=== PATIENT | female | born 1960 | race Caucasian/White ===

== ENCOUNTER → 2020-08-20 07:56 | Outpatient (BNVA) | payer BC, SELFPAY | PROVIDERS: PCP Nurse Practitioner Family; Referring Provider Nurse Practitioner Family; Visit Provider Student in an Organized Health Care Education/Training Program | DX: Z76.89 Persons encountering health services in other specified circumstances (principal) ==

== ENCOUNTER 2020-09-16 08:14 | Outpatient (REF) | payer BC, SELFPAY ==
[2020-09-16 11:37] LABS: Alanine Aminotransferase 35 U/L (0-31); Albumin Level 4.5 g/dL (3.5-5.0); Alkaline Phosphatase 78 U/L (39-117); Anion Gap 12 (12-20); Aspartate Amino Transferase 27 U/L (5-31); Bilirubin Total 0.5 mg/dL (0.0-1.0); Blood Urea Nitrogen 18 mg/dL (9-16); Calcium 9.2 mg/dL (8.4-10.2); Carbon Dioxide 30 mmol/L (22-29); Chloride 106 mmol/L (96-108); Cholesterol 163 mg/dL; Estimated Glomerular Filt Rate 49; Glucose Fasting 76 mg/dL (60-99); HDL Cholesterol 54 mg/dL; LDL Cholesterol Calculated 87 mg/dl; Potassium 4.2 mmol/l (3.3-5.1); Sodium 144 mmol/L (135-145); Total Protein 6.9 g/dL (6.5-8.0); Triglycerides 113 mg/dL
[2020-09-16 11:57] LABS: TSH reflex Free T4 1.38 mIU/mL (0.32-4.0)
== END 2020-09-16 08:15 | disposition home or self-care (01) ==
LOC: HO.HMGCLDS 08:14
PROVIDERS: PCP Nurse Practitioner Family; Visit Provider Nurse Practitioner Family
DX: E03.9 Hypothyroidism, unspecified (principal); E78.5 Hyperlipidemia, unspecified
CPT/HCPCS: 80053; 80061; 84443

== ENCOUNTER 2021-02-02 06:46 | Outpatient (REF) | payer BC, SELFPAY ==
[2021-02-02 12:09] LABS: Alanine Aminotransferase 28 U/L (0-31); Albumin Level 4.1 g/dL (3.5-5.0); Alkaline Phosphatase 54 U/L (39-117); Anion Gap 11 (12-20); Aspartate Amino Transferase 21 U/L (5-31); Bilirubin Direct 0.2 mg/dL (0.0-0.5); Bilirubin Total 0.5 mg/dL (0.0-1.0); Blood Urea Nitrogen 24 mg/dL (9-16); Calcium 9.3 mg/dL (8.4-10.2); Carbon Dioxide 29 mmol/L (22-29); Chloride 109 mmol/L (96-108); Cholesterol 159 mg/dL; Estimated Glomerular Filt Rate 48; Glucose Fasting 70 mg/dL (60-99); HDL Cholesterol 54 mg/dL; LDL Cholesterol Calculated 94 mg/dl; Potassium 4.2 mmol/L (3.3-5.1); Sodium 145 mmol/L (135-145); Total Protein 6.2 g/dL (6.5-8.0); Triglycerides 57 mg/dL; Vitamin D 25-OH Total 63.2 ng/mL (>30)
== END 2021-02-02 06:47 | disposition home or self-care (01) ==
LOC: HO.HMGCLDS 06:46
PROVIDERS: PCP Nurse Practitioner Family; Visit Provider Nurse Practitioner Family
DX: Z00.00 Encounter for general adult medical examination without abnormal findings (principal); R74.8 Abnormal levels of other serum enzymes; Z78.0 Asymptomatic menopausal state
CPT/HCPCS: 36415; 80053; 80061; 80076; 82248; 82306; 84443

== ENCOUNTER 2021-04-10 08:29 | Outpatient (REF) | payer BC, SELFPAY ==
--- NOTE | ~2021-04-10 | US_ITS ---
EXAMINATION: US SOFT TISSUE OF THE NECK CLINICAL INFORMATION: Localized swelling, mass and lump, neck. COMPARISON: None TECHNIQUE: Linear transducer grayscale and color Doppler examination of the soft tissues of the neck midline superior to the thyroid. FINDINGS: No solid or cystic soft tissue mass or lymphadenopathy is seen. US/US soft tiss head and/or neck IMPRESSION: No abnormality seen by ultrasound in the soft tissues in the neck, midline superior to the thyroid gland.
== END 2021-04-10 08:30 | disposition home or self-care (01) ==
LOC: HO.HMGCX 08:29
PROVIDERS: PCP Nurse Practitioner Family; Visit Provider Hospitalist
DX: R22.1 Localized swelling, mass and lump, neck (principal)
CPT/HCPCS: 76536

== ENCOUNTER → 2021-09-09 11:16 | Outpatient (BNVA) | payer BC, SELFPAY | PROVIDERS: PCP Nurse Practitioner Family; Visit Provider Nurse Practitioner Family ==

== ENCOUNTER 2021-09-18 07:00 | Outpatient (RCR) | payer BC, SELFPAY ==
--- NOTE | 2021-02-02 08:05 | MHC.PT.EP ---
[facility] [place] Office [place] Office [place] Office [address] Williams Scott [address] [phone] F: [phone] F: [phone] F: [phone] F: [phone] Physical Therapy Plan of Care Date of Evaluation: Date of Surgery: Diagnosis: lumbar radiculopathy Assessment: 61 y/o F referred to PT with lumbar radiculopathy. 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 Of note, PMH significant for B TKA, L ITB/glut med pinning and resection?, HTN, fibromyalgia, and RA. Examination shows decreased lumbar AROM, significantly decreased hip strength, SI dysfunction, and impaired gait pattern with noted frontal plane deviations. Recommend PT 2x/week for 5 weeks to address impairments, implement HEP, and optimize functional mobility. Frequency and Duration: The patient will be seen 2x/week for 5 weeks Short Term Goals: 3 weeks 1. I with HEP 2. Improve lumbar flexion to 75% 3. 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 I with HEP and self management of sx 2. Pt will improve hip strength by 1 MMT grade to faciliate walking > 25 min 3. Pt will be able to sit > 45 min Treatment Plan: Modalities to reduce pain, spasms and effusion. Manual therapy to restore motion and function. Therapeutic exercise to improve strength and flexibility. Neuromuscular re-education for posture and balance. Therapeutic activities to return to functional activities of daily living. Electronically signed by: Teena Garcia PT Please sign and return to therapist. Thank you for your referral.
--- NOTE | 2021-09-18 10:17 | MHC.PT.DC ---
[facility] [place] Office [place] Office [place] Office [address] Williams Scott [address] [phone] F: [phone] F: [phone] F: [phone] F: [phone] Physical Therapy Discharge Report Diagnosis: lumbar radiculopathy Date of Surgery: Date of Evaluation: 02/02/21 Date of Discharge: 09/18/21 Treatments to Date: Cancellations to Date: 2 No Shows to Date: 1 Discharge Status: Achieved Goals Improved Function Independent with HEP Recommend MD Follow-up Discharge Summary: Pt HAS PROGRESSED VERY WELL THROUGH PT- SHE IS COMPLIANT AND INDEP W HEP- HER OVERALL FUNCTIONAL MOBILITY HAS IMPROVED- HER PAIN LEVEL IS SIGNIF DECREASED- FUNCTIONALLY, SIGNI PROGRESS EVIDENT W IMPROVED OSWESTRY SCORE OF 15/50 (AT EVAL 32/50 ) Pt MET HER PT GOALS AT THIS TIME AND IS D/C'D W HEP Electronically signed by: Janay Ramirez,PT Please sign and return to therapist. Thank you for your referral.
== END 2021-09-18 10:18 | disposition home or self-care (01) ==
LOC: HO.PT 07:00
PROVIDERS: PCP Nurse Practitioner Family; Visit Provider Nurse Practitioner Family
DX: M47.816 Spondylosis without myelopathy or radiculopathy, lumbar region (principal)
CPT/HCPCS: 97110; 97112; 97116; 97161

== ENCOUNTER 2021-09-30 09:24 | Emergency (ER) | payer BC, SELFPAY ==
--- NOTE | 2021-09-30 | ECG_ITS ---
Test Reason : abdominal pain Blood Pressure : / mmHG Vent. Rate : 086 BPM Atrial Rate : 086 BPM P-R Int : 158 ms QRS Dur : 078 ms QT Int : 368 ms P-R-T Axes : 059 -02 044 degrees QTc Int : 440 ms Normal sinus rhythm Normal ECG When compared with ECG of 05-MAY-2006 07:49, No significant changes seen Referred By: Serge Steve Electronically Signed By:Behzad Olguin
--- NOTE | ~2021-09-30 | CT_ITS ---
EXAMINATION: CT ABDOMEN AND PELVIS WITH CONTRAST CLINICAL INFORMATION: Abdominal pain. Tenderness to palpation COMPARISON: 04/27/2011 TECHNIQUE: Multidetector volumetric images were obtained from the superior aspect of the liver through the pubic symphysis following administration 85 mL of Omnipaque 350 intravenous contrast. Sagittal and coronal reformatted images were obtained on the technologist's workstation. Oral contrast: No This CT examination was performed using dose optimization techniques as appropriate, variously including the following: *Automated exposure control *Adjustment of mA and/or kV according to patient size (this includes techniques or standardized protocols for targeted exams where dose is matched to indication/reason for exam; i.e. extremities or head) *Use of iterative reconstruction technique DLP: 983 mGy-cm FINDINGS: LUNG BASES: The visualized lung bases are unremarkable. LIVER, GALLBLADDER, AND BILIARY TREE: The liver is normal in size, shape, and attenuation. No focal hepatic lesion or biliary ductal dilatation is present. Gallbladder not seen, either collapsed or surgically absent. PANCREAS: Unremarkable. SPLEEN: Unremarkable. ADRENAL GLANDS: Unremarkable. KIDNEYS AND URETERS: The kidneys are normal in size, shape, and attenuation. No hydronephrosis, hydroureter, or calculi seen. No perinephric stranding. BLADDER: Unremarkable. GASTROINTESTINAL TRACT: Small hiatal hernia is present. There is a duodenal diverticulum adjacent the pancreatic head. Small bowel nondilated. Normal appendix. There is abnormal wall thickening with pericolonic fluid and fat stranding centered about a diverticulum of the proximal sigmoid colon in the central anterior pelvis. No evidence of abscess or perforation. ABDOMINAL WALL: There is asymmetric atrophy of the right rectus abdominis. LYMPH NODES: No lymphadenopathy. VASCULAR: Normal caliber aorta with mild calcified atherosclerotic changes. PELVIC VISCERA: No adnexal mass. OSSEOUS STRUCTURES: Multilevel degenerative changes of the thoracolumbar spine are present. Fixation screws in the right greater trochanter. Convex right lumbar rotoscoliosis. CT/CT abdomen pelvis w con IMPRESSION: Acute diverticulitis of the proximal sigmoid colon without evidence of abscess or perforation. Fleischner guidelines were followed.
[2021-09-30 10:44] VITALS: BP 132/78; PULSE 91; RESP 18; TEMP 37.3; O2SAT 97; BMI 34.9
[2021-09-30 11:32] LABS: MANUAL DIFF FLAG NO
[2021-09-30 11:35] LABS: Basophils Percent Auto 0.3 % (0-2); Eosinophils Absolute Auto 0.2 X10*3/uL (0.0-0.4); Hematocrit 43.3 % (37.0-47.0); Hemoglobin 13.9 g/dl (12.0-16.0); Imm Gran Abs Auto 0.04 X10*3/uL (0.00-0.03); Imm Gran Pct Auto 0.3 % (0.0-0.4); Lymphocytes Absolute Auto 2.8 X10*3/uL (1.2-4.9); Lymphocytes Percent Auto 22.9 % (20-40); Mean Corpuscular HGB Conc 32.1 g/dl (31.0-35.0); Mean Corpuscular Hemoglobin 28.7 pg (27.0-33.0); Mean Corpuscular Volume 89.5 fL (80.0-98.0); Mean Platelet Volume 8.1 fL (9.4-12.3); Monocytes Percent Auto 8.2 % (2-11); Neutrophils Absolute Auto 8.1 x10*3/uL (2.0-8.3); Neutrophils Percent Auto 66.3 % (45-73); Platelet Count 313 X10*3/uL (160-400); Red Blood Count 4.84 X10*6/uL (4.20-5.50); Red Cell Distribution Width 13.2 % (11.0-16.0); White Blood Count 12.2 X10*3/uL (4.8-10.8)
[2021-09-30 12:00] LABS: Alanine Aminotransferase 38 U/L (0-31); Alkaline Phosphatase 83 U/L (39-117); Anion Gap 8 (12-20); Aspartate Amino Transferase 25 U/L (5-31); Blood Urea Nitrogen 14 mg/dL (9-16); Calcium 9.3 mg/dL (8.4-10.2); Carbon Dioxide 30 mmol/L (22-29); Chloride 104 mmol/L (96-108); Creatinine Clr Calc Pharmacy 52.8; Estimated Glomerular Filt Rate 43; Glucose Random 84 mg/dL (60-115); Potassium 3.9 mmol/L (3.3-5.1); Sodium 138 mmol/L (135-145); Total Protein 6.5 g/dL (6.5-8.0)
[2021-09-30 20:16] VITALS: BP 154/75; PULSE 92; RESP 18; TEMP 37; O2SAT 98
--- NOTE | 2021-09-30 20:24 | ED_ITS ---
HPI - Abdominal Pain General Chief Complaint: Abdominal Pain Stated Complaint: abdominal pain fever Source: patient Mode of arrival: ambulatory Limitations: no limitations History of Present Illness HPI narrative: 61-year-old female presents with 3 days of lower abdominal pain associated with fevers, abdominal cramping, and 1 day of constipation. MD elicited complaint: abdominal pain Pertinent past history: diverticulitis Onset (ago): day(s) (3) Pain Consistency: constant Location: RLQ, LLQ and suprapubic Severity: moderate Pain scale (0-10): 8 Quality: cramping and aching Radiation: none Migration to: no migration Exacerbating factors: eating, bowel movement and movement Relieving factors: nothing Associated symptoms: nausea, fever, chills and constipation Related Data Home Medications Medication Instructions Recorded Confirmed acetaminophen 500 mg tablet 1,000 mg PO Q6H PRN 08/20/20 09/09/21 (Tylenol Extra Strength) albuterol sulfate 90 mcg/actuation 2 puff INHALATION Q4-6H PRN 08/20/20 09/09/21 aerosol inhaler bupropion HCl 300 mg 24 hr tablet, 300 mg PO QAM 08/20/20 09/09/21 extended release calcium carbonate 600 mg calcium 600 mg PO BID 08/20/20 09/09/21 (1,500 mg) tablet (Calcium) cholecalciferol (vitamin D3) 25 25 mcg PO DAILY 08/20/20 09/09/21 mcg (1,000 unit) capsule cranberry extract 425 mg capsule 425 mg PO DAILY 08/20/20 09/09/21 loratadine 10 mg tablet 10 mg PO DAILY 08/20/20 09/09/21 multivitamin 1 tab PO DAILY 08/20/20 09/09/21 cyclosporine 0.05 % eye drops in a 1 drp OPHTHALMIC (EYE) BID 09/16/20 09/09/21 dropperette magnesium 250 mg tablet 250 mg PO DAILY 04/23/21 09/09/21 lutein 40 mg capsule 40 mg PO DAILY 09/09/21 09/09/21 vit C 250 mg-vit E 90 mg-zinc 40 1 tab PO DAILY cap 09/09/21 09/09/21 mg-copper 1 [id number] capsule (PreserVision AREDS-2) Previous Rx's Medication Instructions Recorded rosuvastatin 10 mg tablet 10 mg PO DAILY #90 cap 10/14/20 sumatriptan succinate 50 mg tablet See Rx Instructions PO .COMPLEX 30 12/30/20 (Imitrex) Days #10 tab gabapentin 600 mg tablet 600 mg PO BID #120 cap 01/14/21 levothyroxine 125 mcg tablet 125 mcg PO QAM #90 cap 02/12/21 fluticasone 500 mcg-salmeterol 50 1 ea PO BID #60 ea 03/28/21 mcg/dose blistr powdr for inhalation (Wixela Inhub) diclofenac potassium 50 mg tablet 50 mg PO BID PRN 30 Days #60 tab 04/23/21 losartan 100 mg tablet 100 mg PO DAILY 90 Days #90 tab 04/23/21 montelukast 10 mg tablet 10 mg PO DAILY 30 Days #30 tab 05/11/21 tramadol 50 mg tablet 50 mg PO DAILY #30 tab 08/07/21 cyclobenzaprine 10 mg tablet 10 mg PO BID PRN #60 cap 09/04/21 levofloxacin 750 mg tablet 750 mg PO DAILY 7 Days #7 tab 09/30/21 metronidazole 500 mg tablet 500 mg PO Q8H 7 Days #21 tab 09/30/21 ondansetron 4 mg disintegrating 4 mg PO Q8H PRN #14 tab 09/30/21 tablet oxycodone 5 mg tablet 5 mg PO Q8H PRN #10 tab 09/30/21 Allergies Allergy/AdvReac Type Severity Reaction Status Date / Time lactose Allergy Unknown lactose Verified 09/30/21 08:25 intolerant GI upset sulfamethoxazole Allergy Unknown vomiting Verified 09/30/21 08:25 tizanidine Allergy Vomiting Verified 09/30/21 08:25 Review of Systems Review of Systems Constitutional: No Weight loss, positive Fever, positive Chills, No Night Sweats, No Fatigue, No Malaise ENT/Mouth: No Hearing loss, No Ear Pain, No Nasal Congestion, No Sinus Pain, No Hoarseness, No sore throat, No Rhinorrhea, No Swallowing Difficulty Eyes: No Eye Pain, No Swelling, No Redness, No Foreign Body, No Discharge, No Vision Changes Cardiovascular: No Chest Pain, No SOB, No Dyspnea on Exertion, No Orthopnea, No Edema, No Palpitations Respiratory: No Cough, No Sputum, No Wheezing, No Smoke Exposure, No Dyspnea Gastrointestinal: Positive Nausea, no Vomiting, no Diarrhea, positive abdominal Pain, No Hematochezia, No Melena Genitourinary: no irregular bleeding, No Dysuria, No Urinary Frequency, No Hematuria, No Urinary Incontinence, No Urgency, No Flank Pain, No Urinary Flow Changes, No Hesitancy Musculoskeletal: No joint pain, No Myalgias, No Joint Swelling Skin: No Skin Lesions, No rash Neuro: No Weakness, No Numbness, No Paresthesias, No Loss of Consciousness, No Dizziness, No Headache Psych: No Anxiety/Panic, No Depression, No SI/HI/AH/VH, No Social Issues Heme/Lymph: No Bruising, No Bleeding,No Lymphadenopathy Endocrine: No Polyuria, No Polydipsia, No Temperature Intolerance Yes all other systems are reviewed and are negative Physical Exam Vital Signs: Vital Signs: Last Vital Signs Temp 98.9 F 09/30/21 22:40 Pulse 95 09/30/21 22:40 Resp 17 09/30/21 22:40 BP 165/84 H 09/30/21 22:40 Pulse Ox 97 09/30/21 22:40 BMI result Body Mass Index 34.9 Appearance: Alert. Oriented X3. Mild distress. Eyes: Pupils equal, round and reactive to light. Sclera nonicteric. ENT: Pharynx normal. Moist mucous membranes. Neck: Normal inspection. Neck supple. CVS: Tachycardic heart rate and rhythm. Apical pulse equal pulses to extremities. Respiratory: No respiratory distress. Breath sounds normal. Abdomen: Soft and right, left and suprapubic tenderness noted to palpation. No distention or rigidity. Skin: Skin warm and dry. Normal skin color. Normal skin turgor. Extremities: No lower extremity edema. Moves all extremities against resistan ce. Neuro: No motor deficit. No sensory deficit. Cranial nerves 2-12 intact. Course Course Course Narrative: E.d. wait time 11 hours 20 minutes 8:29 p.m. 61-year-old female presents with abdominal pain, does have a history of diverticulitis approximately 20 years ago. History of cholecystectomy, hysterectomy but no other abdominal surgeries. Patient is passing flatus, stated to have severe abdominal pain over the past 3 days, in approximately 24 hours of constipation. Physical exam is positive for abdominal tenderness without rigidity or distention. Will order CT abdomen pelvis to rule out acute abdomen. Patient appears nontoxic, is afebrile at this time. Vital signs are stable, heart rate is 91, blood pressure 132/78. Labs drawn while patient was in the emergency department waiting room. White count is 12.2, no other indication of organ dysfunction 9:[address] scan positive for diverticulitis. Urinalysis indicates leukocyte esterase. Patient will be on Levaquin and Flagyl, UTI will be covered by the Levaquin. Patient is on tramadol, however stated that the tramadol was not effective toward her back pain detailed discussion regarding narcotic safety patient understanding. 10:30 p.m. I did discuss findings with patient, she feels comfortable being discharged home with p.o. medications and pain management. She does understand that if symptoms worsen or she is unable to tolerate fluids as she must return to the emergency department immediately. Patient verbalized understanding of discharge instructions and agrees to plan of care. MDM - Abdominal Pain Differential Diagnosis Differential diagnosis: Likely abdominal pain, aortic dissection, acute appendicitis, bowel perforation, calculus of kidney, constipation, diverticulitis and small bowel obstruction Medical Records Attestation: I reviewed the patient's medical records. Lab Data Attestation: I reviewed the patient's lab results. Result diagrams: 09/30/21 11:26 09/30/21 11:26 Labs: Lab Results 09/30/21 09/30/21 09/30/21 Range/Units 11:26 11:26 22:40 WBC 12.2 H (4.8-10.8) X10*3/uL RBC 4.84 (4.20-5.50) X10*6/uL Hgb 13.9 (12.0-16.0) g/dl Hct 43.3 (37.0-47.0) % MCV 89.5 (80.0-98.0) fL MCH 28.7 (27.0-33.0) pg MCHC 32.1 (31.0-35.0) g/dl RDW 13.2 (11.0-16.0) % Plt Count 313 (160-400) X10*3/uL MPV 8.1 L (9.4-12.3) fL Immature Gran % (Auto) 0.3 (0.0-0.4) % Neut % (Auto) 66.3 (45-73) % Lymph % (Auto) 22.9 (20-40) % [place] % (Auto) 8.2 (2-11) % Eos % (Auto) 2.0 (0-4) % Baso % (Auto) 0.3 (0-2) % Lymph # (Auto) 2.8 (1.2-4.9) X10*3/uL [place] # (Auto) 1.0 (0.1-1.2) X10*3/uL Eos # (Auto) 0.2 (0.0-0.4) X10*3/uL Baso # (Auto) 0.0 (0.0-0.2) X10*3/uL Abs Immat Gran (auto) 0.04 H (0.00-0.03) X10*3/uL Absolute Neuts (auto) 8.1 (2.0-8.3) x10*3/uL Absolute Nucleated RBC 0.000 (0.0-0.012) X10*3/uL Nucleated RBC % (auto) 0.0 (0.0-0.2) /100WBC Sodium 138 (135-145) mmol/L Potassium 3.9 (3.3-5.1) mmol/L Chloride 104 (96-108) mmol/L Carbon Dioxide 30 H (22-29) mmol/L Anion Gap 8 L (12-20) BUN 14 (9-16) mg/dL Creatinine 1.26 (0.5-1.4) mg/dL Estim Creat Clear Calc 52.8 Estimated GFR 43 Random Glucose 84 (60-115) mg/dL Calcium 9.3 (8.4-10.2) mg/dL Total Bilirubin 1.0 (0.0-1.0) mg/dL AST 25 (5-31) U/L ALT 38 H (0-31) U/L Alkaline Phosphatase 83 D (39-117) U/L Total Protein 6.5 (6.5-8.0) g/dL Albumin 4.0 (3.5-5.0) g/dL Urine Color YELLOW Urine Appearance CLEAR Urine pH 6.0 (5.0-8.0) Ur Specific [place] <= 1.005 (1.005-1.025) Urine Protein NEG (NEG-TRACE) MG/DL Urine Glucose (UA) NEG (NEG) MG/DL Urine Ketones 5 (NEG) MG/DL Urine Blood NEG (NEG) Urine Nitrite NEG (NEG) Ur Leukocyte Esterase 1+ H (NEG) Urine RBC 0-2 (0) /HPF Urine WBC 10-14 H (0-4) /HPF Urine WBC Clumps NOTED Ur Squamous Epith Cells TRACE /LPF Urine Bacteria TRACE /LPF Imaging Data CT abdomen pelvis: Attestation: I personally reviewed and interpreted this imaging study as follows: Radiologist's impression: FINDINGS: LUNG BASES: The visualized lung bases are unremarkable.? LIVER, GALLBLADDER, AND BILIARY TREE: The liver is normal in size, shape, and attenuation. No focal hepatic lesion or biliary ductal dilatation is present. Gallbladder not seen, either collapsed or surgically absent.? PANCREAS: Unremarkable.? SPLEEN: Unremarkable.? ADRENAL GLANDS: Unremarkable.? KIDNEYS AND URETERS: The kidneys are normal in size, shape, and attenuation. No hydronephrosis, hydroureter, or calculi seen. No perinephric stranding. ? BLADDER: Unremarkable.? GASTROINTESTINAL TRACT: Small hiatal hernia is present. There is a duodenal diverticulum adjacent the pancreatic head. Small bowel nondilated. Normal appendix. There is abnormal wall thickening with pericolonic fluid and fat stranding centered about a diverticulum of the proximal sigmoid colon in the central anterior pelvis. No evidence of abscess or perforation.? ABDOMINAL WALL: There is asymmetric atrophy of the right rectus abdominis.? LYMPH NODES: No lymphadenopathy. VASCULAR: Normal caliber aorta with mild calcified atherosclerotic changes. PELVIC VISCERA: No adnexal mass.? OSSEOUS STRUCTURES: Multilevel degenerative changes of the thoracolumbar spine are present. Fixation screws in the right greater trochanter. Convex right lumbar rotoscoliosis.? CT/CT abdomen pelvis w con IMPRESSION: Acute diverticulitis of the proximal sigmoid colon without evidence of abscess or perforation.? ? Fleischner guidelines were followed. ECG Data Attestation: I personally reviewed and interpreted this ECG as follows: ECG interpretation date: 09/30/21 ECG interpretation time: 11:20 Prior ECG tracings: available for review Interpretation: Vent. rate 86 BPM NC interval 158 ms QRS duration 78 ms QT/QTc 368/440 ms P-R-T axes 59 -2 44 Normal sinus rhythm Normal ECG When compared with ECG of 05-MAY-2006 07:49, No significant changes seen Discharge Plan Discharge Clinical Impression: Diverticulitis Patient Disposition: Home, Self-Care Instructions: Diverticulitis (ED), Diverticulitis Diet (ED) Additional Instructions: You were evaluated for abdominal pain. CT scan of the abdomen and pelvis indicates diverticulitis without perforation or abscess. Please take antibiotics Flagyl 500 mg 3 times a day for 7 days and Levaquin 750 mg once a day for 7 days. I prescribed oxycodone for pain management. Do not drive or operate machinery while taking this medication. This medication is a narcotic and has high risk for addiction and abuse. This medication can cause drowsiness, increased risk for falls, and delayed reaction time. This medication is also constipating. Please drink plenty of fluids. Use MiraLax and Colace as needed to help soften stools. If symptoms worsen, you develop increase in fevers, chills, or unable to tolerate p.o. fluids please return to the emergency department immediately for evaluation. Please follow-up with Dr. Joy, as you may need repeat colonoscopy. Thank you for choosing this emergency department for evaluation. Please follow-up with primary care physician as needed. Return to the emergency department for any new, concerning, or worsening symptoms. Prescriptions: New metronidazole 500 mg tablet 500 mg PO Q8H 7 Days Qty: 21 RF: 0 levofloxacin 750 mg tablet 750 mg PO DAILY 7 Days Qty: 7 RF: 0 oxycodone 5 mg tablet 5 mg PO Q8H PRN (Reason: pain) Qty: 10 RF: 0 ondansetron 4 mg tablet,disintegrating 4 mg PO Q8H PRN (Reason: nausea and vomiting) Qty: 14 RF: 0 No Action rosuvastatin 10 mg tablet 10 mg PO DAILY Qty: 90 RF: 3 gabapentin 600 mg tablet 600 mg PO BID Qty: 120 RF: 2 levothyroxine 125 mcg tablet 125 mcg PO QAM Qty: 90 RF: 3 fluticasone propion-salmeterol [Wixela Inhub] 500-50 mcg/dose blister with device 1 ea PO BID Qty: 60 RF: 2 montelukast 10 mg tablet 10 mg PO DAILY 30 Days Qty: 30 RF: 4 tramadol 50 mg tablet 50 mg PO DAILY Qty: 30 RF: 3 cyclobenzaprine 10 mg tablet 10 mg PO BID PRN (Reason: muscle spasm) Qty: 60 RF: 0 Restasis 0.05 % dropperette 1 drp ophthalmic (eye) BID RF: 0 sumatriptan succinate [Imitrex] 50 mg tablet See Rx Instructions PO .COMPLEX 30 Days Qty: 10 RF: 3 magnesium 250 mg tablet 250 mg PO DAILY RF: 0 diclofenac potassium 50 mg tablet 50 mg PO BID PRN (Reason: pain) 30 Days Qty: 60 RF: 1 losartan 100 mg tablet 100 mg PO DAILY 90 Days Qty: 90 RF: 1 cranberry extract 425 mg capsule 425 mg PO DAILY RF: 0 cholecalciferol (vitamin D3) 25 mcg (1,000 unit) capsule 25 mcg PO DAILY RF: 0 loratadine 10 mg tablet 10 mg PO DAILY RF: 0 bupropion HCl 300 mg tablet extended release 24 hr 300 mg PO QAM RF: 0 albuterol sulfate 90 mcg/actuation HFA aerosol inhaler 2 puff inhalation Q4-6H PRNRF: 0 multivitamin Tablet 1 tab PO DAILY RF: 0 calcium carbonate [Calcium 600] 600 mg calcium (1,500 mg) tablet 600 mg PO BID RF: 0 acetaminophen [Tylenol Extra Strength] 500 mg tablet 1,000 mg PO Q6H PRNRF: 0 lutein 40 mg capsule 40 mg PO DAILY RF: 0 PreserVision AREDS-2 250-90-40-1 mg capsule 1 tab PO DAILY RF: 0 Referrals: Sandra Joy MD [Physician] - 2 days (Diverticulitis) Stand Alone Forms: Work/School Release Interventions: ED Discharge Assessment Last Done: 09/30/21 23:09 Discharge Date/Time: 09/30/21 23:14 [facility] Past Medical History Attestation statement: The following information was validated with the patient. Source: old records reviewed Medical History Asthma COPD (chronic obstructive pulmonary disease) Depression Dyslipidemia Fibromyalgia HTN (hypertension) Hypothyroid Lumbar spondylosis Macular degeneration Seborrheic keratosis Surgical History H/O breast biopsy History of colonoscopy History of hysterectomy History of knee replacement procedure of left knee History of knee replacement procedure of right knee History of surgery Family History Family History Father Unknown family medical history Mother Unknown family medical history Social History Social History Housing: House Alcohol intake: never Patient Tobacco Use Status: Never used Tobacco e-Cigarette/Vaping Use: Never Used Second Hand Smoke Exposure: No Advance Directives: Yes Advance Directives Information Provided: No Advance Directives on File: No Patient : No service: No Current occupational status: retired
[2021-09-30] MEDS: iohexoL 350 MG/ML 100 ML INFUS..BTL 85 ML IV (21:49)
[2021-09-30 22:40] VITALS: BP 165/84; PULSE 95; RESP 17; TEMP 37.2; O2SAT 97
[2021-09-30] MEDS: ondansetron HCL 4 MG/2 ML VIAL IVPUSH (22:43)
[2021-09-30] MEDS: metroNIDAZOLE 500 MG TABLET PO (22:43)
[2021-09-30] MEDS: levoFLOXacin 750 MG TABLET PO (22:43)
[2021-09-30] MEDS: Morphine Sulfate 4 MG/ML CARTRIDGE IVPUSH (22:43)
[2021-09-30 22:48] LABS: Appearance Urine CLEAR; Color Urine YELLOW; Glucose Urine UA NEG (NEG); Leukocyte Esterase Urine 1+ (NEG); Nitrite Urine NEG (NEG); Specific Gravity - Urine <= 1.005 (1.005-1.025); UACC Culture Trigger YES; Urine Blood NEG (NEG); Urine Ketones 5 MG/DL (NEG); Urine Protein NEG (NEG-TRACE)
[2021-09-30 23:25] LABS: Bacteria Urine TRACE /LPF; RBC Urine 0-2 /HPF (0); Squamous Epithelial Cell Urine TRACE /LPF; WBC Clumps Urine NOTED
== END 2021-09-30 23:14 | disposition home or self-care (01) ==
PROVIDERS: Emergency Medicine; Emergency Provider Emergency Medicine Emergency Medical Services; PCP Nurse Practitioner Family
DX: K57.32 Diverticulitis of large intestine without perforation or abscess without bleeding (principal); R10.9 Unspecified abdominal pain; I10 Essential (primary) hypertension
CPT/HCPCS: 36415; 74177; 80053; 81001; 81003; 85025; 87086; 93005; 96374; 96375; 99284; J2270; J2405; Q9967

== ENCOUNTER → 2021-10-07 09:20 | Outpatient (BNVA) | payer BC, SELFPAY | PROVIDERS: PCP Nurse Practitioner Family; Referring Provider Nurse Practitioner Family; Visit Provider Surgery ==

== ENCOUNTER 2021-10-22 09:30 | Outpatient (REF) | payer BC, OTHER, SELFPAY ==
--- NOTE | ~2021-10-22 | XR_ITS ---
EXAMINATION: XR THORACIC SPINE CLINICAL INFORMATION: M47.816 - Spondylosis without myelopathy or radiculopathy COMPARISON: Dorsal spine radiographs 11/24/2016 TECHNIQUE: 3 views of the thoracic spine were obtained. FINDINGS: There are 12 rib-bearing thoracic vertebrae of normal height and normal thoracic kyphosis. Mild curvature. Thoracic spine is stable. There is no vertebral compression, spondylolisthesis, destructive process, or paraspinal soft tissue swelling. Again, there is mild multilevel thoracic disc narrowing with mild thoracic vertebral spurring. Degenerative disc changes again seen cervical spine with disc narrowing greatest at C5-C6 and C6-C7 with associated cervical vertebral spurring as before. XR/XR thoracic spine 3V IMPRESSION: Degenerative changes cervical and thoracic spine similar to prior exam 2017. No thoracic vertebral compression, spondylolisthesis, destructive process.
--- NOTE | ~2021-10-22 | XR_ITS ---
EXAMINATION: XR LUMBOSACRAL SPINE CLINICAL INFORMATION: M47.816 - Spondylosis without myelopathy or radiculopathy COMPARISON: Radiographs lumbar spine 11/24/2016, thoracic spine 10/22/2021. TECHNIQUE: Three views of the lumbosacral spine. FINDINGS: There are 5 nonrib-bearing lumbar vertebrae of normal height and normal lumbar lordosis. Dextrocurvature lumbar spine is again noted. There is no lumbar vertebral compression, spondylolisthesis, destructive process. Multilevel degenerative disc changes are present at all levels with variable disc narrowing and endplate sclerosis and osteophytes. Degenerative disc changes are slightly increased since 2017. There are no visible erosive changes. There is some mild facet degeneration L4-S1. The SI joints and visualized sacrum are unremarkable. XR/XR lumbar spine 2-3V IMPRESSION: Multilevel degenerative disc changes.
[2021-10-22 11:18] LABS: MANUAL DIFF FLAG NO
[2021-10-22 11:30] LABS: Appearance Urine CLEAR; Color Urine YELLOW; Glucose Urine UA NEG (NEG); Leukocyte Esterase Urine TRACE (NEG); Nitrite Urine NEG (NEG); Specific Gravity - Urine <= 1.005 (1.005-1.025); UACC Culture Trigger YES; Urine Blood NEG (NEG); Urine Ketones NEG (NEG); Urine Protein NEG (NEG-TRACE)
[2021-10-22 11:34] LABS: Basophils Percent Auto 0.6 % (0-2); Eosinophils Absolute Auto 0.2 X10*3/uL (0.0-0.4); Eosinophils Percent Auto 3.5 % (0-4); Hematocrit 42.6 % (37.0-47.0); Hemoglobin 13.4 g/dl (12.0-16.0); Imm Gran Abs Auto 0.02 X10*3/uL (0.00-0.03); Imm Gran Pct Auto 0.3 % (0.0-0.4); Lymphocytes Absolute Auto 2.4 X10*3/uL (1.2-4.9); Lymphocytes Percent Auto 37.7 % (20-40); Mean Corpuscular HGB Conc 31.5 g/dl (31.0-35.0); Mean Corpuscular Hemoglobin 28.3 pg (27.0-33.0); Mean Corpuscular Volume 89.9 fL (80.0-98.0); Mean Platelet Volume 8.6 fL (9.4-12.3); Monocytes Absolute Auto 0.6 X10*3/uL (0.1-1.2); Monocytes Percent Auto 9.6 % (2-11); Neutrophils Percent Auto 48.3 % (45-73); Platelet Count 376 X10*3/uL (160-400); Red Blood Count 4.74 X10*6/uL (4.20-5.50); Red Cell Distribution Width 12.6 % (11.0-16.0); White Blood Count 6.3 X10*3/uL (4.8-10.8)
[2021-10-22 11:51] LABS: Renal Epithelial Cells Urine TRACE /LPF; Squamous Epithelial Cell Urine TRACE /LPF
[2021-10-22 11:52] LABS: Bacteria Urine TRACE /LPF; RBC Urine 0 /HPF (0); WBC Urine 0-2 /HPF (0-4)
[2021-10-22 11:53] LABS: Alanine Aminotransferase 48 U/L (0-31); Alkaline Phosphatase 69 U/L (39-117); Anion Gap 13 (12-20); Aspartate Amino Transferase 36 U/L (5-31); Bilirubin Total 0.4 mg/dL (0.0-1.0); Blood Urea Nitrogen 13 mg/dL (9-16); C Reactive Protein 0.18 mg/dL (< or = 0.50); Calcium 9.5 mg/dL (8.4-10.2); Carbon Dioxide 28 mmol/L (22-29); Chloride 105 mmol/L (96-108); Cholesterol 171 mg/dL; Estimated Glomerular Filt Rate 56; Glucose Fasting 82 mg/dL (60-99); HDL Cholesterol 48 mg/dL; Iron 66 mcg/dL (30-160); LDL Cholesterol Calculated 100 mg/dl; Percent Iron Saturation 21 % (15-50); Potassium 4.2 mmol/L (3.3-5.1); Sodium 142 mmol/L (135-145); Total Iron Binding Capacity 314 mcg/dL (228-428); Total Protein 6.4 g/dL (6.5-8.0); Triglycerides 115 mg/dL; Unsaturated Iron Binding 248 ug/dL
[2021-10-22 12:15] LABS: Erythrocyte Sedimentation Rate 14 MM/HR (0-20)
[2021-10-22 12:27] LABS: Folate 18.9 ng/mL (> or = 4.0); Vitamin B12 1063 pg/mL (200-900)
[2021-10-22 12:49] LABS: Ferritin 104 ng/mL (10-250)
[2021-10-23 12:36] LABS: Anti Nuclear Antibody Screen NEGATIVE (NEGATIVE)
== END 2021-10-22 09:31 | disposition home or self-care (01) ==
LOC: HO.HMGCLDS 09:30
PROVIDERS: Absent Provider Nurse Practitioner Family; PCP Nurse Practitioner Family; Visit Provider Nurse Practitioner Family
DX: I10 Essential (primary) hypertension (principal); K57.92 Diverticulitis of intestine, part unspecified, without perforation or abscess without bleeding; R53.83 Other fatigue; R74.8 Abnormal levels of other serum enzymes; M47.816 Spondylosis without myelopathy or radiculopathy, lumbar region; M54.9 Dorsalgia, unspecified
CPT/HCPCS: 36415; 72072; 72100; 80053; 80061; 81001; 82607; 82728; 82746; 83540; 84443; 85025; 85652; 86038; 86039; 86140; 87086

== ENCOUNTER 2021-10-28 08:11 | Outpatient (REF) | payer BC, SELFPAY ==
[2021-10-28 11:48] LABS: Appearance Urine HAZY; Color Urine YELLOW; Glucose Urine UA NEG (NEG); Leukocyte Esterase Urine TRACE (NEG); Nitrite Urine NEG (NEG); PH 5.5 (5.0-8.0); Specific Gravity - Urine >= 1.030 (1.005-1.025); UACC Culture Trigger YES; Urine Blood NEG (NEG); Urine Ketones 5 MG/DL (NEG); Urine Protein NEG (NEG-TRACE)
[2021-10-28 12:25] LABS: Calcium Oxalate Crystals Urine 2+ /LPF; Mucus Urine 1+ /LPF; RBC Urine 0 /HPF (0); Squamous Epithelial Cell Urine TRACE /LPF
[2021-10-29 07:54] LABS: HBS Num1 0.81 mIU/mL (0-7.99); HBc Num1 0.06 S/CO (0.00-0.79); HBsAGNum1 0.16 S/CO (0.00-0.99); Hepatitis B Core Antibody Nonreactive (Nonreactive); Hepatitis B Surface Antigen Negative (Negative); ~HepC Num1 0.07 S/CO (0.00-0.79); ~Hepatitis B Surface Antibody NONREACTIVE (Nonreactive); ~Hepatitis C Antibody Nonreactive (Nonreactive)
[2021-10-30 08:22] LABS: Hepatitis A Antibody IgM 0.16 Index (0-0.79); ~Hepatitis A Antibody IgM Nonreactive (Nonreactive)
== END 2021-10-28 08:12 | disposition home or self-care (01) ==
LOC: HO.HMGCLDS 08:11
PROVIDERS: PCP Nurse Practitioner Family; Visit Provider Nurse Practitioner Family
DX: R74.8 Abnormal levels of other serum enzymes (principal)
CPT/HCPCS: 36415; 81001; 86704; 86706; 86709; 86803; 87086; 87340

== ENCOUNTER 2021-11-09 10:24 | Outpatient (REF) | payer BC, OTHER, SELFPAY ==
--- NOTE | ~2021-11-09 | US_ITS ---
EXAMINATION: US ABDOMEN COMPLETE CLINICAL INFORMATION: Elevated LFTs. COMPARISON: CT abdomen pelvis 09/30/2021 TECHNIQUE: Real-time imaging of the abdominal viscera. FINDINGS: PANCREAS: Visualized portions of pancreas are normal in appearance. ABDOMINAL AORTA: The proximal, mid, and distal segments are normal in caliber. INFERIOR VENA CAVA: Visualized portions are normal. LIVER: The liver is normal in size. The liver contour is normal. Parenchymal echogenicity is normal. No focal hepatic lesion. There is no intrahepatic biliary duct dilatation seen. GALLBLADDER: Surgically absent COMMON BILE DUCT: 0.85 cm in diameter. RIGHT KIDNEY: Normal. No hydronephrosis. No renal calculi or focal parenchymal lesions. The kidney measures 9.7 cm in maximum dimension. LEFT KIDNEY: Normal. No hydronephrosis. No renal calculi or focal parenchymal lesions. The kidney measures 9.4 cm in maximum dimension. SPLEEN: Normal. The spleen measures 11.1 cm in maximum dimension. FREE FLUID: None. US/US abdomen complete IMPRESSION: Grossly unremarkable sonographic imaging of the abdomen. The common bile duct is mildly prominent, however, this is often times seen in post cholecystectomy patients. Clinical correlation recommended.
== END 2021-11-09 10:25 | disposition home or self-care (01) ==
LOC: HO.HMGCX 10:24
PROVIDERS: PCP Nurse Practitioner Family; Visit Provider Nurse Practitioner Family
DX: R74.8 Abnormal levels of other serum enzymes (principal); R53.83 Other fatigue; Z90.49 Acquired absence of other specified parts of digestive tract
CPT/HCPCS: 76700

== ENCOUNTER → 2021-11-18 08:50 | Outpatient (BNVA) | payer BC, SELFPAY | PROVIDERS: PCP Nurse Practitioner Family; Referring Provider Nurse Practitioner Family; Visit Provider Surgery ==

== ENCOUNTER 2021-12-31 09:04 | Outpatient (REF) | payer BC, SELFPAY ==
[2021-12-31 11:18] LABS: MANUAL DIFF FLAG NO
[2021-12-31 11:28] LABS: Basophils Percent Auto 0.7 % (0-2); Eosinophils Absolute Auto 0.2 X10*3/uL (0.0-0.4); Eosinophils Percent Auto 3.3 % (0-4); Hematocrit 40.8 % (37.0-47.0); Hemoglobin 13.3 g/dl (12.0-16.0); Imm Gran Abs Auto 0.02 X10*3/uL (0.00-0.03); Imm Gran Pct Auto 0.3 % (0.0-0.4); Lymphocytes Absolute Auto 2.3 X10*3/uL (1.2-4.9); Mean Corpuscular HGB Conc 32.6 g/dl (31.0-35.0); Mean Corpuscular Hemoglobin 28.2 pg (27.0-33.0); Mean Corpuscular Volume 86.6 fL (80.0-98.0); Monocytes Absolute Auto 0.6 X10*3/uL (0.1-1.2); Neutrophils Absolute Auto 2.8 x10*3/uL (2.0-8.3); Neutrophils Percent Auto 46.7 % (45-73); Platelet Count 308 X10*3/uL (160-400); Red Blood Count 4.71 X10*6/uL (4.20-5.50); Red Cell Distribution Width 14.1 % (11.0-16.0)
[2021-12-31 11:51] LABS: Appearance Urine CLEAR; Color Urine YELLOW; Glucose Urine UA NEG (NEG); Leukocyte Esterase Urine TRACE (NEG); Nitrite Urine NEG (NEG); Specific Gravity - Urine <= 1.005 (1.005-1.025); UACC Culture Trigger YES; Urine Blood NEG (NEG); Urine Ketones NEG (NEG); Urine Protein NEG (NEG-TRACE)
[2021-12-31 12:05] LABS: TSH reflex Free T4 1.03 uIU/mL (0.32-4.0)
[2021-12-31 12:13] LABS: Mucus Urine 1+ /LPF; RBC Urine 0 /HPF (0); Squamous Epithelial Cell Urine 1+ /LPF
[2021-12-31 12:21] LABS: Alanine Aminotransferase 49 U/L (0-31); Albumin Level 4.1 g/dL (3.5-5.0); Alkaline Phosphatase 75 U/L (39-117); Anion Gap 12 (12-20); Aspartate Amino Transferase 34 U/L (5-31); Bilirubin Total 0.5 mg/dL (0.0-1.0); Blood Urea Nitrogen 18 mg/dL (9-16); Calcium 9.6 mg/dL (8.4-10.2); Carbon Dioxide 27 mmol/L (22-29); Chloride 105 mmol/L (96-108); Cholesterol 198 mg/dL; Estimated Glomerular Filt Rate 54; Glucose Fasting 90 mg/dL (60-99); HDL Cholesterol 40 mg/dL; LDL Cholesterol Calculated 125 mg/dl; Potassium 4.2 mmol/L (3.3-5.1); Sodium 140 mmol/L (135-145); Total Protein 6.4 g/dL (6.5-8.0); Triglycerides 168 mg/dL
== END 2021-12-31 09:05 | disposition home or self-care (01) ==
LOC: HO.HMGCLDS 09:04
PROVIDERS: Visit Provider Nurse Practitioner Family
DX: Z00.00 Encounter for general adult medical examination without abnormal findings (principal); Z78.0 Asymptomatic menopausal state; Z13.220 Encounter for screening for lipoid disorders; Z13.29 Encounter for screening for other suspected endocrine disorder
CPT/HCPCS: 36415; 80053; 80061; 81001; 84443; 85025; 87086

== ENCOUNTER 2022-01-08 06:30 | Day surgery (SDC) | payer BC, SELFPAY ==
[2022-01-04 11:25] VITALS: BMI 34.9
--- NOTE | 2022-01-07 08:48 | P.CONAN_ITS ---
Documented by User: Kassy Damon NP 01/07/22 08:49 HPI - Anesthesia Eval Consult details Narrative: 61yo F for Colonoscopy with Poss Polypectomy PMFSH Active Problems Active Problems: All Active Problems (Updated 11/04/21 @ 10:05 by Arjun Gutierrez MD) Diverticular disease (Acute) Fatigue (Acute) HTN (hypertension) (Acute) Acute diverticulitis (Acute) Abdominal pain (Acute) COPD exacerbation (Acute) Neck mass (Acute) Dizziness (Acute) Physical exam (Acute) Postmenopausal (Acute) Elevated liver enzymes (Acute) Seborrheic keratosis (Acute) Lumbar spondylosis (Acute) Past Medical History Medical History Acute diverticulitis Asthma COPD (chronic obstructive pulmonary disease) Depression Diverticular disease Dyslipidemia Fibromyalgia HTN (hypertension) Hypothyroid Lumbar spondylosis Macular degeneration Seborrheic keratosis Family History Family History Father Unknown family medical history Mother Unknown family medical history Surgical History Surgical History H/O breast biopsy History of colonoscopy History of hysterectomy History of knee replacement procedure of left knee History of knee replacement procedure of right knee History of surgery Social History Social History Housing: House Alcohol intake: never Patient Tobacco Use Status: Never used Tobacco e-Cigarette/Vaping Use: Never Used Second Hand Smoke Exposure: No Are you DNR?: No Advance Directives: Yes Advance Directives on File: Yes Advance Directives Date on File: 01/08/22 Nutrition Risks: No Nutritional Risk service: No Current occupational status: retired Cognitive needs: No Hearing needs: No Vision needs: No Meds Allergies Allergy/AdvReac Type Severity Reaction Status Date / Time lactose Allergy Unknown lactose Verified 12/31/21 08:44 intolerant GI upset sulfamethoxazole Allergy Unknown vomiting Verified 12/31/21 08:44 tizanidine Allergy Vomiting Verified 12/31/21 08:44 Home Medications Medication Instructions Recorded Confirmed Last Taken Type acetaminophen 500 mg tablet 1,000 mg PO Q6H PRN 08/20/20 01/04/22 Unknown History (Tylenol Extra Strength) albuterol sulfate 90 mcg/actuation 2 puff INHALATION Q4-6H PRN 08/20/20 01/04/22 01/08/22 History aerosol inhaler bupropion HCl 300 mg 24 hr tablet, 300 mg PO QAM 08/20/20 01/04/22 Unknown History extended release calcium carbonate 600 mg calcium 600 mg PO BID 08/20/20 01/04/22 Unknown History (1,500 mg) tablet (Calcium) cholecalciferol (vitamin D3) 25 25 mcg PO DAILY 08/20/20 01/04/22 Unknown History mcg (1,000 unit) capsule cranberry extract 425 mg capsule 425 mg PO DAILY 08/20/20 01/04/22 Unknown History loratadine 10 mg tablet 10 mg PO DAILY 08/20/20 01/04/22 Unknown History multivitamin 1 tab PO DAILY 08/20/20 01/04/22 Unknown History cyclosporine 0.05 % eye drops in a 1 drp OPHTHALMIC (EYE) BID 09/16/20 01/04/22 Unknown History dropperette magnesium 250 mg tablet 250 mg PO DAILY 04/23/21 01/04/22 Unknown History lutein 40 mg capsule 40 mg PO DAILY 09/09/21 01/04/22 Unknown History vit C 250 mg-vit E 90 mg-zinc 40 1 tab PO DAILY cap 09/09/21 01/04/22 Unknown History mg-copper 1 cm-agxlrb-cfiqox capsule (PreserVision AREDS-2) rosuvastatin 10 mg tablet 10 mg PO .QOD tab 12/31/21 01/04/22 Unknown History Exam Exam Date and Time: January 07, 2022 0848 Height,Weight and Vital Signs: Height 5 ft 5 in Weight 95.311 kg Pertinent Lab Results Pertinent Lab Results: Laboratory Tests 12/31/21 12/31/21 09:20 09:20 WBC 6.0 Hgb 13.3 Hct 40.8 Plt Count 308 Sodium 140 Potassium 4.2 Chloride 105 Carbon Dioxide 27 BUN 18 H Creatinine 1.03 Assessment and Plan Assessment Anesthesia Assessment: Chart Reviewed Documented by User: Saqib Nguyen MD 01/08/22 07:26 [facility] Past Medical History Medical History Acute diverticulitis Asthma COPD (chronic obstructive pulmonary disease) Depression Diverticular disease Dyslipidemia Fibromyalgia HTN (hypertension) Hypothyroid Lumbar spondylosis Macular degeneration Seborrheic keratosis Family History Family History Father Unknown family medical history Mother Unknown family medical history Family history of problems with anesthesia: No Surgical History Surgical History H/O breast biopsy History of colonoscopy History of hysterectomy History of knee replacement procedure of left knee History of knee replacement procedure of right knee History of surgery History of Problems with Anesthesia: No Social History Social History Housing: House Alcohol intake: never Patient Tobacco Use Status: Never used Tobacco e-Cigarette/Vaping Use: Never Used Second Hand Smoke Exposure: No Are you DNR?: No Advance Directives: Yes Advance Directives on File: Yes Advance Directives Date on File: 01/08/22 Nutrition Risks: No Nutritional Risk service: No Current occupational status: retired Cognitive needs: No Hearing needs: No Vision needs: No Meds Allergies Allergy/AdvReac Type Severity Reaction Status Date / Time lactose Allergy Unknown lactose Verified 12/31/21 08:44 intolerant GI upset sulfamethoxazole Allergy Unknown vomiting Verified 12/31/21 08:44 tizanidine Allergy Vomiting Verified 12/31/21 08:44 Home Medications Medication Instructions Recorded Confirmed Last Taken Type acetaminophen 500 mg tablet 1,000 mg PO Q6H PRN 08/20/20 01/04/22 Unknown History (Tylenol Extra Strength) albuterol sulfate 90 mcg/actuation 2 puff INHALATION Q4-6H PRN 08/20/20 01/04/22 01/08/22 History aerosol inhaler bupropion HCl 300 mg 24 hr tablet, 300 mg PO QAM 08/20/20 01/04/22 Unknown History extended release calcium carbonate 600 mg calcium 600 mg PO BID 08/20/20 01/04/22 Unknown History (1,500 mg) tablet (Calcium) cholecalciferol (vitamin D3) 25 25 mcg PO DAILY 08/20/20 01/04/22 Unknown History mcg (1,000 unit) capsule cranberry extract 425 mg capsule 425 mg PO DAILY 08/20/20 01/04/22 Unknown History loratadine 10 mg tablet 10 mg PO DAILY 08/20/20 01/04/22 Unknown History multivitamin 1 tab PO DAILY 08/20/20 01/04/22 Unknown History cyclosporine 0.05 % eye drops in a 1 drp OPHTHALMIC (EYE) BID 09/16/20 01/04/22 Unknown History dropperette magnesium 250 mg tablet 250 mg PO DAILY 04/23/21 01/04/22 Unknown History lutein 40 mg capsule 40 mg PO DAILY 09/09/21 01/04/22 Unknown History vit C 250 mg-vit E 90 mg-zinc 40 1 tab PO DAILY cap 09/09/21 01/04/22 Unknown History mg-copper 1 rn-extxhd-[place] capsule (PreserVision AREDS-2) rosuvastatin 10 mg tablet 10 mg PO .QOD tab 12/31/21 01/04/22 Unknown History Exam Airway Mallampati Class: I TM Dist: >3cm Neck ROM: Full Loose/Missing/Broken Teeth: No Heart: ok Lungs: ok Assessment and Plan Final Anesthetic Review Family History of Problems with Anesthesia: No History of Problems with Anesthesia: No ASA Class: II Final Preanesthetic Review: No Changes in Pt Med Stat, Meds/Allgs Chart Reviewed, Consent Obtained/Reviewed and Anes Risks/Benef Reviewed Patient Risk: Intermediate Procedure Risk: Low Anesthetic Plan Anesthetic Plan: MAC: and Agree w/ Assess. and Plan Disposition: Standard PACU
[2022-01-08] VITALS (7 sets, daily range): BP systolic 121–140; BP diastolic 70–86; PULSE 72–83; RESP 12–17; TEMP 36.1–36.2; O2SAT 89–97
[2022-01-08] MEDS: Lactated Ringers 1,000 ML 100 ML IVCONT (06:55)
--- NOTE | 2022-01-08 08:14 | MHC.SHP ---
Pre-Procedural Eval Section A Date of Service: 01/08/22 Section B Chief Complaint: Diverticulosis of intestine Details of Present Illness: Has history of diverticulitis; had a colonoscopy in 2017 with poor bowel prep so she was told to have another colonoscopy in 5 years Relevant Family History (Specify if Yes): No Relevant Social History: None Present Medications: see Short Stay Collaborative assessment Medical History: Significant History (Diverticular disease, COPD, lumbar spondylosis, hypertension, elevated BMI) Allergies: Allergies Allergy/AdvReac Type Severity Reaction Status Date / Time lactose Allergy Unknown lactose Verified 12/31/21 08:44 intolerant GI upset sulfamethoxazole Allergy Unknown vomiting Verified 12/31/21 08:44 tizanidine Allergy Vomiting Verified 12/31/21 08:44 Review of Systems Sugical H&P ROS: Negative: Constitution, Cardiovascular, Respiratory, Neurological, Psychiatric, Hem-Onc, Allergic/Immunologic, Gastrointestinal, Genitourinary, Musculoskeletal, Integumentary, Endocrine and Eyes/Ears/Nose/Throat Plan Diagnosis/Plan: Unchanged I have reviewed the history and physical and performed a pertinent physical examination on my patient. No changes have occurred unless specified.
--- NOTE | 2022-01-08 08:16 | W.PM.OPN ---
Operative Note Operative Note Date of Service: 01/08/22 Narrative: Preop diagnosis: Colon cancer screening, recent diverticulitis Postop diagnosis: 1. Moderate to severe diverticulosis, sigmoid 2. External hemorrhoids Procedure: Colonoscopy Surgeon: Arjun Gutierrez MD The patient is a 61-year-old female who had a colonoscopy in 2017 with note of suboptimal bowel prep. She was told to have another colonoscopy within 5 years. She also has known diverticular disease and has had source of diverticulitis. She understood the technique of colonoscopy. She was aware of the risks, benefits, and alternatives. She was brought to the operating room. She was placed in left lateral decubitus position under monitored anesthesia care. A surgical time-out was done. A full digital rectal was done and there were no palpable internal lesions. She did have external hemorrhoids. The tip of the Olympus colonoscope was gently introduced through the anal orifice advanced with insufflation all the way to the cecum. There was note of significant tortuosity in the sigmoid. I was able to intubate the cecum. The cecal mucosa weeks examined carefully. There were no lesions seen. The cecum was identified by visualization of the ileocecal valve as well as the appendiceal orifice . I then proceeded to withdraw the scope slowly with careful examination of the entire colonic mucosa being done with scope withdrawal. The patient had good bowel prep so it was unlikely that any lesion may have been missed. There was note of heavy diverticulosis in the sigmoid at about 25-30 cm level. Otherwise and that, there were no lesions seen. There were no polyps. The rest of the rectum and anal shelf were unremarkable with the anal canal was unremarkable. She did have external hemorrhoids. The scope was then withdrawn completely with desufflation The patient tolerated procedure well. There were no complications noted. Falls at average risk for colon cancer so her next colonoscopy may be in the next 10 years.
== END 2022-01-08 10:00 | disposition home or self-care (01) ==
PROVIDERS: PCP Nurse Practitioner Family; Visit Provider Surgery
PROC: 0DBE8ZZ Excision of Large Intestine, Via Natural or Artificial Opening Endoscopic (ICD-10-PCS; CPT 45378; principal; 2022-01-08 07:30)
DX: Z12.11 Encounter for screening for malignant neoplasm of colon (principal); Z87.19 Personal history of other diseases of the digestive system; K57.30 Diverticulosis of large intestine without perforation or abscess without bleeding; K64.4 Residual hemorrhoidal skin tags; Z88.2 Allergy status to sulfonamides; Z88.8 Allergy status to other drugs, medicaments and biological substances; J44.9 Chronic obstructive pulmonary disease, unspecified; F32.9 Major depressive disorder, single episode, unspecified; E78.5 Hyperlipidemia, unspecified; I10 Essential (primary) hypertension; E03.9 Hypothyroidism, unspecified; M79.7 Fibromyalgia; Z79.51 Long term (current) use of inhaled steroids; Z79.899 Other long term (current) drug therapy; Z96.653 Presence of artificial knee joint, bilateral; Z98.890 Other specified postprocedural states
CPT/HCPCS: 45378; J3010

== ENCOUNTER → 2022-01-25 11:25 | Outpatient (BNVA) | payer BC, SELFPAY | PROVIDERS: PCP Nurse Practitioner Family; Referring Provider Nurse Practitioner Family; Visit Provider Surgery | DX: Z13.89 Encounter for screening for other disorder (principal) ==

== ENCOUNTER 2022-04-22 10:01 | Inpatient (IN) | payer MEDICARE, BC, OTHER, SELFPAY ==
--- NOTE | ~2022-04-22 | CT_ITS ---
EXAMINATION: CT ABDOMEN AND PELVIS WITH CONTRAST CLINICAL INFORMATION: Lower abdomen pain. Right lower quadrant pain. Left lower quadrant pain. Suprapubic pain. COMPARISON: Portions of a previous CT 09/30/21 TECHNIQUE: Multidetector volumetric images were obtained from the superior aspect of the liver through the pubic symphysis following administration 85 mL of Omnipaque 350 intravenous contrast. Sagittal and coronal reformatted images were obtained on the technologist's workstation. Oral contrast: No This CT examination was performed using dose optimization techniques as appropriate, variously including the following: *Automated exposure control *Adjustment of mA and/or kV according to patient size (this includes techniques or standardized protocols for targeted exams where dose is matched to indication/reason for exam; i.e. extremities or head) *Use of iterative reconstruction technique DLP: 860 mGy-cm FINDINGS: LUNG BASES: No suspicious abnormality in the visualized lower chest LIVER, GALLBLADDER, AND BILIARY TREE: The liver contour is smooth. No focal liver lesion. The gallbladder is not definitely identified and may be surgically absent. No significant biliary dilation. PANCREAS: No suspicious abnormality SPLEEN: Within normal limits ADRENAL GLANDS: Normal KIDNEYS AND URETERS: There is no dilation of the urinary collecting system on either side. Slight irregularity of the renal contours. Small cysts abutting the lateral capsular surface of the mid left kidney does not require any further evaluation. There are a few pixels of high attenuation without a discrete calculus. BLADDER: There is no gas within the bladder. The stranding associated with the abnormal sigmoid colon tents the superior margin of the urinary bladder. There is no well-defined fistula. GASTROINTESTINAL TRACT: There is luminal narrowing with wall thickening and surrounding stranding involving the sigmoid colon. There are numerous diverticula. There is no drainable abscess. Small pockets of extraluminal gas could be present. There is no evidence of small bowel obstruction. As described stranding extends to the dome of the bladder without definite intravesicular gas. The appendix is normal. There is no small bowel dilation. There is a diverticulum involving the medial aspect of the second portion of the duodenum. ABDOMINAL WALL: There is a lipoma in the right lateral abdominal wall. There is no bowel hernia. LYMPH NODES: There are no measurably enlarged abdominal or pelvic lymph nodes. There is a trace amount of nonspecific free pelvic fluid. VASCULAR: There is no abdominal aortic aneurysm. There is some atherosclerotic calcification. The portal vein enhances. PELVIC VISCERA: Previous hysterectomy. No suspicious adnexal mass or collection. OSSEOUS STRUCTURES: No suspicious focal lesion. Degenerative changes in the spine. There are metallic anchors associated with the right greater trochanter. There is gluteal muscular atrophy. CT/CT abdomen pelvis w con IMPRESSION: Segmental wall thickening with luminal narrowing and pericolonic fat stranding involving the sigmoid colon. There are numerous regional diverticula. The pattern is consistent with moderately severe acute diverticulitis. There is no drainable abscess or bowel obstruction. The stranding abuts the dome of the bladder but there is no gas within the urinary bladder. Fleischner guidelines were followed.
[2022-04-22 10:08] VITALS: BP 120/76; PULSE 85; RESP 18; TEMP 36.2; O2SAT 95; BMI 33.3
[2022-04-22 12:18] LABS: COVID-19 Test Negative (Negative)
[2022-04-22] MEDS: Albuterol/Iprat 2.5/0.5MG 3 ML AMPUL.NEB INHALE (16:06)
--- NOTE | 2022-04-22 16:32 | ED.ABDPAIN ---
HPI - Abdominal Pain General Chief Complaint: Abdominal Pain Stated Complaint: ad pain fever Time Seen by Provider: 04/22/22 15:42 Source: patient Mode of arrival: ambulatory History of Present Illness HPI narrative: 62-year-old female with a past medical history of diverticulitis, asthma, COPD, depression, HLD, fibromyalgia, HTN, hypothyroid, presenting to the ED complaining of lower abdominal pain > LLQ since this morning. Admits to associated fever T-max 101 degrees, nonbloody diarrhea and nausea. Denies vomiting, dysuria, hematuria, flank pain MD elicited complaint: abdominal pain Pertinent past history: diverticulitis Onset (ago): day(s) Related Data Home Medications Medication Instructions Recorded Confirmed acetaminophen 500 mg tablet 1,000 mg PO Q6H PRN Pain 08/20/20 01/04/22 (Tylenol Extra Strength) albuterol sulfate 90 mcg/actuation 2 puff inhalation Q4-6H PRN 08/20/20 01/04/22 aerosol inhaler Wheezing bupropion HCl 300 mg 24 hr tablet, 300 mg PO QAM 08/20/20 01/04/22 extended release calcium carbonate 600 mg calcium 600 mg PO BID 08/20/20 01/04/22 (1,500 mg) tablet (Calcium) cholecalciferol (vitamin D3) 25 25 mcg PO DAILY 08/20/20 01/04/22 mcg (1,000 unit) capsule cranberry extract 425 mg capsule 425 mg PO DAILY 08/20/20 01/04/22 loratadine 10 mg tablet 10 mg PO DAILY 08/20/20 01/04/22 multivitamin 1 tab PO DAILY 08/20/20 01/04/22 cyclosporine 0.05 % eye drops in a 1 drp ophthalmic (eye) BID 09/16/20 01/04/22 dropperette magnesium 250 mg tablet 250 mg PO DAILY 04/23/21 01/04/22 lutein 40 mg capsule 40 mg PO DAILY 09/09/21 01/04/22 vit C 250 mg-vit E 90 mg-zinc 40 1 tab PO DAILY 09/09/21 01/04/22 mg-copper 1 [id number] capsule (PreserVision AREDS-2) rosuvastatin 10 mg tablet 10 mg PO .QOD 12/31/21 01/04/22 Previous Rx's Medication Instructions Recorded sumatriptan succinate 50 mg tablet See Rx Instructions PO .COMPLEX 30 12/30/20 (Imitrex) days #10 tabs fluticasone 500 mcg-salmeterol 50 1 ea PO BID #60 ea 03/28/21 mcg/dose blistr powdr for inhalation (Adam Inhub) losartan 100 mg tablet 100 mg PO DAILY 90 days #90 tabs 10/22/21 montelukast 10 mg tablet 10 mg PO DAILY 90 days #90 tabs 10/22/21 gabapentin 600 mg tablet 600 mg PO BID #120 caps 10/28/21 sodium,potassium,mag sulfates 17.5 See Rx Instructions PO .COMPLEX 11/18/21 gram-3.13 gram-1.6 gram oral soln #354 mL (Suprep Bowel Prep Kit) docusate sodium 100 mg capsule 100 mg PO BID #60 caps 12/24/21 (Colace) metronidazole 1 % topical gel 1 appl topical DAILY 30 days #60 01/07/22 grams prednisone 20 mg tablet 60 mg PO DAILY 4 days #12 tabs 01/22/22 levothyroxine 125 mcg tablet 125 mcg PO QAM #90 caps 02/09/22 tramadol 50 mg tablet 50 mg PO DAILY PRN pain #30 tabs 02/09/22 coenzyme Q10 100 mg capsule 100 mg PO DAILY #30 caps 03/17/22 diclofenac potassium 50 mg tablet 50 mg PO BID PRN pain 30 days #60 04/07/22 tabs Allergies Allergy/AdvReac Type Severity Reaction Status Date / Time lactose Allergy Unknown lactose Verified 01/25/22 11:30 intolerant GI upset sulfamethoxazole Allergy Unknown vomiting Verified 01/25/22 11:30 tizanidine Allergy Vomiting Verified 01/25/22 11:30 Review of Systems Review of Systems Constitutional: + Fever, No Chills, No Fatigue, No Malaise ENT/Mouth: No Ear Pain, No Nasal Congestion, No sore throat, No Rhinorrhea, No Swallowing Difficulty Eyes: No Eye Pain, No Swelling, No Redness Cardiovascular: No Chest Pain, No SOB, No Dyspnea on Exertion, No Orthopnea, No Edema, No Palpitations Respiratory: No Cough, No Sputum, No Dyspnea Gastrointestinal: + Nausea, No Vomiting, + Diarrhea, No Constipation, + Abdominal pain Genitourinary: No irregular bleeding, No Dysuria, No Urinary Frequency, No Hematuria, No Flank Pain, No Urinary Flow Changes Musculoskeletal: No joint pain, No Myalgias, No Joint Swelling Skin: No Skin Lesions, No rash Neuro: No Weakness, No Numbness, No Dizziness, No Headache Yes all other systems are reviewed and are negative Constitutional: Reports as per [facility] Past Medical History Attestation statement: The following information was validated with the patient. Medical History Acute diverticulitis Asthma COPD (chronic obstructive pulmonary disease) Depression Diverticular disease Dyslipidemia Fibromyalgia HTN (hypertension) Hypothyroid Lumbar spondylosis Macular degeneration Seborrheic keratosis Surgical History H/O breast biopsy History of colonoscopy History of hysterectomy History of knee replacement procedure of left knee History of knee replacement procedure of right knee History of surgery Family History Family History Father Unknown family medical history Mother Unknown family medical history Social History Social History Housing: House Alcohol intake: never Patient Tobacco Use Status: Never used Tobacco e-Cigarette/Vaping Use: Never Used Second Hand Smoke Exposure: No Advance Directives: Yes Advance Directives Information Provided: No Advance Directives on File: No Advance Directives Date on File: 01/08/22 service: No Current occupational status: retired Cognitive needs: No Hearing needs: No Vision needs: No Physical Exam ED Vital Signs: Vital Signs - 24 hr 04/22/22 10:08 04/22/22 17:41 Temperature 97.2 F 96.9 F Pulse Rate 85 77 Respiratory Rate 18 18 Blood Pressure 120/76 132/66 Pulse Oximetry 95 97 Oxygen Delivery Method Room Air Room Air BMI result Body Mass Index 33.3 Const General: cooperative, healthy appearing and no acute distress Orientation/consciousness: patient oriented x3 Limitations: no limitations HENMT Head: Yes normal to inspection and Yes atraumatic Ears: hearing grossly normal bilaterally General nose exam: Normal external nose present Face and sinus: Yes normal facial exam Eyes General: appearance normal, both eyes and all related structures EOM: EOMs intact bilaterally Neck Neck: Yes normal visual inspection and Yes no meningeal signs Resp Effort & Inspection: normal respiratory effort and no respiratory distress Auscultation: clear to auscultation bilaterally and no wheezes Cardio Rate: regular rate Heart sounds: S1 normal heart sound present and S2 normal heart sound present GI Inspection: Yes normal to inspection Palpation (GI): Soft to palpation, Tenderness to palpation present (GI) in the LLQ, in the RLQ and suprapubicly; with no rebound tenderness, no guarding and not rigid General: Yes no CVA tenderness Back/Spine/Pelvis Back: no CVA tenderness Skin Rashes: no rashes Wounds: no wounds Neuro General: patient oriented x3, tone normal and no meningeal signs Gait exam (Neuro): Normal gait present Extrem General: Yes normal to inspection Course Course Course Narrative: -1807--mild leukocytosis of 12.0. BUN at patient's baseline. Alt chronically elevated. Labs otherwise unremarkable -UA infected -1900--ED care transferred to [facility] pending CT and dispo per results MDM - Abdominal Pain MDM Narrative Medical decision making narrative: 62-year-old female with a past medical history of diverticulitis, asthma, COPD, depression, HLD, fibromyalgia, HTN, hypothyroid, presenting to the ED complaining of lower abdominal pain > LLQ since this morning. Admits to associated fever T-max 101 degrees, nonbloody diarrhea and nausea. On exam vital signs stable, NAD, nontoxic appearing, abdomen soft with LLQ/RLQ and suprapubic tenderness to palpation, no rebound or guarding. No CVAT. Concern for diverticulitis vs appendicitis vs UTI. Lower concern for cholecystitis/lithiasis, pancreatitis or renal stone Plan: Labs, UA, CT abdomen/pelvis, IVF, pain management Differential Diagnosis Differential diagnosis: Likely abdominal pain, acute appendicitis, bowel perforation and diverticulitis Medical Records Attestation: I reviewed the patient's medical records. Lab Data Attestation: I reviewed the patient's lab results. Result diagrams: 04/22/22 17:36 04/22/22 17:36 Labs: Lab Results 04/22/22 04/22/22 04/22/22 Range/Units 11:52 17:36 17:36 WBC 12.0 H (4.8-10.8) X10*3/uL RBC 5.18 (4.20-5.50) X10*6/uL Hgb 14.3 (12.0-16.0) g/dl Hct 43.9 (37.0-47.0) % MCV 84.7 (80.0-98.0) fL MCH 27.6 (27.0-33.0) pg MCHC 32.6 (31.0-35.0) g/dl RDW 13.3 (11.0-16.0) % Plt Count 303 (160-400) X10*3/uL MPV 8.5 L (9.4-12.3) fL Immature Gran % (Auto) 0.5 H (0.0-0.4) % Neut % (Auto) 73.9 H (45-73) % Lymph % (Auto) 16.9 L (20-40) % [place] % (Auto) 8.1 (2-11) % Eos % (Auto) 0.4 (0-4) % Baso % (Auto) 0.2 (0-2) % Lymph # (Auto) 2.0 (1.2-4.9) X10*3/uL [place] # (Auto) 1.0 (0.1-1.2) X10*3/uL Eos # (Auto) 0.1 (0.0-0.4) X10*3/uL Baso # (Auto) 0.0 (0.0-0.2) X10*3/uL Abs Immat Gran (auto) 0.06 H (0.00-0.03) X10*3/uL Absolute Neuts (auto) 8.8 H (2.0-8.3) x10*3/uL Absolute Nucleated RBC 0.000 (0.0-0.012) X10*3/uL Nucleated RBC % (auto) 0.0 (0.0-0.2) /100WBC Sodium 142 (135-145) mmol/L Potassium 4.3 (3.3-5.1) mmol/L Chloride 105 (96-108) mmol/L Carbon Dioxide 24 (22-29) mmol/L Anion Gap 17 (12-20) BUN 19 H (9-16) mg/dL Creatinine 1.22 (0.5-1.4) mg/dL Estim Creat Clear Calc 52.4 Estimated GFR 45 Random Glucose 82 (60-115) mg/dL Calcium 9.5 (8.4-10.2) mg/dL Magnesium 2.3 (1.6-2.6) mg/dL Total Bilirubin 1.1 H (0.0-1.0) mg/dL Direct Bilirubin 0.4 (0.0-0.5) mg/dL AST 29 (5-31) U/L ALT 36 H (0-31) U/L Alkaline Phosphatase 103 D (39-117) U/L Total Protein 7.2 (6.5-8.0) g/dL Albumin 4.4 (3.5-5.0) g/dL Lipase 14 (8-78) U/L Urine Color Urine Appearance Urine pH (5.0-8.0) Ur Specific [place] (1.005-1.025) Urine Protein (NEG-TRACE) MG/DL Urine Glucose (UA) (NEG) MG/DL Urine Ketones (NEG) MG/DL Urine Blood (NEG) Urine Nitrite (NEG) Ur Leukocyte Esterase (NEG) Urine RBC (0) /HPF Urine WBC (0-4) /HPF Ur Squamous Epith Cells /LPF Urine Bacteria /LPF COVID-19 ([facility]) Negative (Negative) COVID-19 Clin Com See Note 04/22/22 Range/Units 17:36 WBC (4.8-10.8) X10*3/uL RBC (4.20-5.50) X10*6/uL Hgb (12.0-16.0) g/dl Hct (37.0-47.0) % MCV (80.0-98.0) fL MCH (27.0-33.0) pg MCHC (31.0-35.0) g/dl RDW (11.0-16.0) % Plt Count (160-400) X10*3/uL MPV (9.4-12.3) fL Immature Gran % (Auto) (0.0-0.4) % Neut % (Auto) (45-73) % Lymph % (Auto) (20-40) % [place] % (Auto) (2-11) % Eos % (Auto) (0-4) % Baso % (Auto) (0-2) % Lymph # (Auto) (1.2-4.9) X10*3/uL [place] # (Auto) (0.1-1.2) X10*3/uL Eos # (Auto) (0.0-0.4) X10*3/uL Baso # (Auto) (0.0-0.2) X10*3/uL Abs Immat Gran (auto) (0.00-0.03) X10*3/uL Absolute Neuts (auto) (2.0-8.3) x10*3/uL Absolute Nucleated RBC (0.0-0.012) X10*3/uL Nucleated RBC % (auto) (0.0-0.2) /100WBC Sodium (135-145) mmol/L Potassium (3.3-5.1) mmol/L Chloride (96-108) mmol/L Carbon Dioxide (22-29) mmol/L Anion Gap (12-20) BUN (9-16) mg/dL Creatinine (0.5-1.4) mg/dL Estim Creat Clear Calc Estimated GFR Random Glucose (60-115) mg/dL Calcium (8.4-10.2) mg/dL Magnesium (1.6-2.6) mg/dL Total Bilirubin (0.0-1.0) mg/dL Direct Bilirubin (0.0-0.5) mg/dL AST (5-31) U/L ALT (0-31) U/L Alkaline Phosphatase (39-117) U/L Total Protein (6.5-8.0) g/dL Albumin (3.5-5.0) g/dL Lipase (8-78) U/L Urine Color YELLOW Urine Appearance HAZY Urine pH 6.0 (5.0-8.0) Ur Specific [place] <= 1.005 (1.005-1.025) Urine Protein NEG (NEG-TRACE) MG/DL Urine Glucose (UA) NEG (NEG) MG/DL Urine Ketones 40 (NEG) MG/DL Urine Blood TRACE (NEG) Urine Nitrite NEG (NEG) Ur Leukocyte Esterase 3+ H (NEG) Urine RBC 1-4 (0) /HPF Urine WBC 76-150 H (0-4) /HPF Ur Squamous Epith Cells 2+ /LPF Urine Bacteria 1+ /LPF COVID-19 ([facility]) (Negative) COVID-19 Clin Com Discharge Plan Discharge Clinical Impression: UTI (urinary tract infection) Patient Disposition: Still a Patient Instructions: Urinary Tract Infection in Women (ED) Additional Instructions: You have a urinary tract infection Your blood work was reassuring Please have close follow-up with her doctor. If symptoms persist or worsen, your unable to eat or drink, have fever unresolved with medications return to the emergency department Prescriptions: No Action fluticasone propion-salmeterol [Wixela Inhub] 500-50 mcg/dose blister with device 1 ea PO BID Qty: 60 2RF gabapentin 600 mg tablet 600 mg PO BID Qty: 120 2RF docusate sodium [Colace] 100 mg capsule 100 mg PO BID Qty: 60 0RF metronidazole 1 % gel 1 appl topical DAILY 30 Days Qty: 60 1RF prednisone 20 mg tablet 60 mg PO DAILY 4 Days Qty: 12 0RF tramadol 50 mg tablet 50 mg PO DAILY PRN (Reason: pain) Qty: 30 2RF Rx Instructions: Do not take with Cyclobenzaprine (Flexeril) levothyroxine 125 mcg tablet 125 mcg PO QAM Qty: 90 3RF coenzyme Q10 100 mg capsule 100 mg PO DAILY Qty: 30 3RF diclofenac potassium 50 mg tablet 50 mg PO BID PRN (Reason: pain) 30 Days Qty: 60 1RF Restasis 0.05 % dropperette 1 drp ophthalmic (eye) BID sumatriptan succinate [Imitrex] 50 mg tablet See Rx Instructions PO .COMPLEX 30 Days Qty: 10 3RF Rx Instructions: take 1 tab at onset of headache; if no relief may repeat 1 tab after at least 2 hrs; max = 4 tabs/24 hr PO rosuvastatin 10 mg tablet 10 mg PO .QOD magnesium 250 mg tablet 250 mg PO DAILY losartan 100 mg tablet 100 mg PO DAILY 90 Days Qty: 90 1RF montelukast 10 mg tablet 10 mg PO DAILY 90 Days Qty: 90 1RF cranberry extract 425 mg capsule 425 mg PO DAILY Rx Instructions: administer with a meal cholecalciferol (vitamin D3) 25 mcg (1,000 unit) capsule 25 mcg PO DAILY loratadine 10 mg tablet 10 mg PO DAILY bupropion HCl 300 mg tablet extended release 24 hr 300 mg PO QAM albuterol sulfate 90 mcg/actuation HFA aerosol inhaler 2 puff inhalation Q4-6H PRN (Reason: Wheezing) multivitamin Tablet 1 tab PO DAILY calcium carbonate [Calcium 600] 600 mg calcium (1,500 mg) tablet 600 mg PO BID acetaminophen [Tylenol Extra Strength] 500 mg tablet 1,000 mg PO Q6H PRN (Reason: Pain) lutein 40 mg capsule 40 mg PO DAILY Rx Instructions: administer with meals PreserVision AREDS-2 250-90-40-1 mg capsule 1 tab PO DAILY Suprep Bowel Prep Kit 17.5-3.13-1.6 gram recon soln See Rx Instructions PO .COMPLEX Qty: 354 0RF Rx Instructions: DILUTE; drink full amount early evening before AND next morning at least 2 hr before procedure; follow w 32 oz. water PO
[2022-04-22 17:41] VITALS: BP 132/66; PULSE 77; RESP 18; TEMP 36.1; O2SAT 97
[2022-04-22 17:41] LABS: MANUAL DIFF FLAG NO
[2022-04-22 17:45] LABS: Appearance Urine HAZY; Basophils Percent Auto 0.2 % (0-2); Color Urine YELLOW; Eosinophils Absolute Auto 0.1 X10*3/uL (0.0-0.4); Eosinophils Percent Auto 0.4 % (0-4); Glucose Urine UA NEG (NEG); Hematocrit 43.9 % (37.0-47.0); Hemoglobin 14.3 g/dl (12.0-16.0); Imm Gran Abs Auto 0.06 X10*3/uL (0.00-0.03); Imm Gran Pct Auto 0.5 % (0.0-0.4); Leukocyte Esterase Urine 3+ (NEG); Lymphocytes Percent Auto 16.9 % (20-40); Mean Corpuscular HGB Conc 32.6 g/dl (31.0-35.0); Mean Corpuscular Hemoglobin 27.6 pg (27.0-33.0); Mean Corpuscular Volume 84.7 fL (80.0-98.0); Mean Platelet Volume 8.5 fL (9.4-12.3); Monocytes Percent Auto 8.1 % (2-11); Neutrophils Absolute Auto 8.8 x10*3/uL (2.0-8.3); Neutrophils Percent Auto 73.9 % (45-73); Nitrite Urine NEG (NEG); Platelet Count 303 X10*3/uL (160-400); Red Blood Count 5.18 X10*6/uL (4.20-5.50); Red Cell Distribution Width 13.3 % (11.0-16.0); Specific Gravity - Urine <= 1.005 (1.005-1.025); UACC Culture Trigger YES; Urine Blood TRACE (NEG); Urine Ketones 40 MG/DL (NEG); Urine Protein NEG (NEG-TRACE)
[2022-04-22] MEDS: Ondansetron ODT 4 MG TAB.RAPDIS TRANSLINGU (17:46)
[2022-04-22 17:51] LABS: Bacteria Urine 1+ /LPF; Squamous Epithelial Cell Urine 2+ /LPF
[2022-04-22] MEDS: 0.9 % Sodium Chloride 1,000 ML 999 ML IV (17:52)
[2022-04-22] MEDS: Ketorolac Tromethamine 15 MG/ML VIAL IVPUSH (17:58)
[2022-04-22 18:04] LABS: Alanine Aminotransferase 36 U/L (0-31); Albumin Level 4.4 g/dL (3.5-5.0); Alkaline Phosphatase 103 U/L (39-117); Anion Gap 17 (12-20); Aspartate Amino Transferase 29 U/L (5-31); Bilirubin Direct 0.4 mg/dL (0.0-0.5); Bilirubin Total 1.1 mg/dL (0.0-1.0); Blood Urea Nitrogen 19 mg/dL (9-16); Calcium 9.5 mg/dL (8.4-10.2); Carbon Dioxide 24 mmol/L (22-29); Chloride 105 mmol/L (96-108); Creatinine Clr Calc Pharmacy 52.4; Estimated Glomerular Filt Rate 45; Glucose Random 82 mg/dL (60-115); Lipase 14 U/L (8-78); Magnesium 2.3 mg/dL (1.6-2.6); Potassium 4.3 mmol/L (3.3-5.1); Sodium 142 mmol/L (135-145); Total Protein 7.2 g/dL (6.5-8.0)
[2022-04-22] MEDS: iohexoL 350 MG/ML 100 ML INFUS..BTL IV (18:50)
--- NOTE | 2022-04-22 19:25 | PC.NURSE ---
Patient now reporting headache and abd pain. Both 05/12. Offered ice pack, lights dimmed and door close.
[2022-04-22 20:05] VITALS: BP 131/77; PULSE 93; RESP 20; TEMP 36.8; O2SAT 94
[2022-04-22] MEDS: metroNIDAZOLE 500 MG TABLET PO (21:10)
[2022-04-22] MEDS: levoFLOXacin 750 MG TABLET PO (21:10)
[2022-04-22] MEDS: LORazepam 1 MG TABLET PO (21:10)
[2022-04-22] MEDS: Butalb/Acetamin/Caff 50/325/40 TABLET 1 TAB PO (21:10)
--- NOTE | 2022-04-22 21:52 | PM.HPGS ---
History of Present Illness History of Present Illness Date of Service: 04/23/22 Chief complaint: acute diverticulitis Narrative: Radha Jean is a 62 year old female with hx of diverticulitis who came to the ED today because of abdominal pain. She says this started early this morning, She describes this as on the lower abdomen. She describes some watery stools and mild nausea. She has a hx of acute diverticulitis trated as an outpt in Sep 2021 and Oct 2021. She had a colonoscopy last January 2022 showing sigoid diverticulosis. Review of Systems Constitutional: Constitutional: Denies chills and Reports fever(s) Cardiovascular: Cardiovascular: Denies chest pain, Denies dyspnea and Denies dyspnea on exertion Respiratory: Respiratory: Denies cough, Denies dyspnea and Denies dyspnea on exertion Gastrointestinal: Gastrointestinal: Denies hematochezia and Denies change in bowel habits Genitourinary: Genitourinary: Denies hematuria Musculoskeletal: Musculoskeletal: Denies back pain and Denies limited range of motion Neurologic: Denies focal weakness and Denies convulsions Psychiatric: Psychiatric: Denies depression and Denies mood swings [facility] Past Medical History Medical History (Updated 04/24/22 @ 10:30 by Joe Patel MD) Acute diverticulitis Asthma COPD (chronic obstructive pulmonary disease) Depression Diverticular disease Dyslipidemia Fibromyalgia HTN (hypertension) Hypothyroid Lumbar spondylosis Macular degeneration Seborrheic keratosis Family History Family History Father Unknown family medical history Mother Unknown family medical history Surgical History Surgical History H/O breast biopsy History of colonoscopy History of hysterectomy History of knee replacement procedure of left knee History of knee replacement procedure of right knee History of surgery Social History Social History Household Members: Spouse Housing: House Do you presently have visiting nurse or other home services: No Alcohol intake: never Patient Tobacco Use Status: Never used Tobacco e-Cigarette/Vaping Use: Never Used Second Hand Smoke Exposure: No Advance Directives Date on File: 01/08/22 service: No Current occupational status: disabled Cognitive needs: No Hearing needs: No Vision needs: No Meds Allergies Allergy/AdvReac Type Severity Reaction Status Date / Time lactose Allergy Unknown lactose Verified 01/25/22 11:30 intolerant GI upset sulfamethoxazole Allergy Unknown vomiting Verified 01/25/22 11:30 tizanidine Allergy Vomiting Verified 01/25/22 11:30 Active Medications: Current Medications Heparin Sodium (Porcine) (Heparin Sodium,Porcine 5,000 Unit/Ml Vial) 5,000 unit SUBCUT Q12H COUNTS INCLUDE 234 BEDS AT THE [facility] Piperacillin Sod/Tazobactam (Sod 3.375 gm/ Sodium Chloride) 50 mls @ 100 mls/hr IV Q6H MAGALI Morphine Sulfate (Morphine Sulfate 4 Mg/Ml Cartridge) 3 mg IVPUSH Q6H PRN; Protocol PRN Reason: Pain, Severe (Pain Scale 7-10) Ondansetron HCl (Ondansetron Hcl 4 Mg/2 Ml Vial) 4 mg IVPUSH Q6H PRN PRN Reason: nausea Sodium Chloride (0.9 % Sodium Chloride Flush 3 Ml Syringe) 3 ml IVFLUSH QSHIFT MAGALI Home Medications Medication Instructions Recorded Confirmed Last Taken Type acetaminophen 500 mg tablet 1,000 mg PO Q6H PRN Pain 08/20/20 04/22/22 04/21/22 History (Tylenol Extra Strength) albuterol sulfate 90 mcg/actuation 2 puff inhalation Q4-6H PRN 08/20/20 04/22/22 04/21/22 History aerosol inhaler Wheezing bupropion HCl 300 mg 24 hr tablet, 300 mg PO QAM 08/20/20 04/22/22 04/21/22 History extended release calcium carbonate 600 mg calcium 600 mg PO BID 08/20/20 04/22/22 04/21/22 History (1,500 mg) tablet (Calcium) cholecalciferol (vitamin D3) 25 25 mcg PO DAILY 08/20/20 04/22/22 04/21/22 History mcg (1,000 unit) capsule cranberry extract 425 mg capsule 425 mg PO DAILY 08/20/20 04/22/22 04/21/22 History loratadine 10 mg tablet 10 mg PO DAILY 08/20/20 04/22/22 04/22/22 08:00 History multivitamin 1 tab PO DAILY 08/20/20 04/22/22 Unknown History cyclosporine 0.05 % eye drops in a 1 drp ophthalmic (eye) BID 09/16/20 04/22/2222 History dropperette magnesium 250 mg tablet 250 mg PO DAILY 04/23/21 04/22/22 Unknown History lutein 40 mg capsule 40 mg PO DAILY 09/09/21 04/22/22 Unknown History rosuvastatin 10 mg tablet 10 mg PO .QOD 12/31/21 04/22/22 Unknown History gabapentin 600 mg tablet 1,200 mg PO DAILY 04/22/22 04/22/22 04/21/22 History tiotropium bromide 18 mcg capsule 1 cap inhalation DAILY 04/22/22 04/22/22 Unknown History with inhalation device (Spiriva with HandiHaler) Physical Exam Vital Signs: Vital Signs: Last Vital Signs Temp 98.3 F 04/22/22 20:05 Pulse 93 04/22/22 20:05 Resp 20 04/22/22 20:05 BP 131/77 04/22/22 20:05 Pulse Ox 94 04/22/22 20:05 O2 Del Method 04/22/22 20:05 O2 Flow Rate 3 04/22/22 20:05 BMI result Body Mass Index 33.3 Const: Other: a little anxious General: comfortable and no acute distress Orientation/consciousness: patient oriented x3 Neck: Neck: Yes no lymphadenopathy Resp: Auscultation: clear to auscultation bilaterally Cardio: Rhythm: regular rhythm GI: Palpation (GI): Soft to palpation, Tenderness to palpation present (GI) (on lower abdomen, L>R), no guarding and not rigid Neuro: General: patient oriented x3 Results Results Labs: Short CBC 04/22/22 Range/Units 17:36 WBC 12.0 H (4.8-10.8) X10*3/uL Hgb 14.3 (12.0-16.0) g/dl Hct 43.9 (37.0-47.0) % Plt Count 303 (160-400) X10*3/uL BMP 04/22/22 17:36 Sodium 142 Potassium 4.3 Chloride 105 Carbon Dioxide 24 BUN 19 H Creatinine 1.22 Calcium 9.5 Liver Function 04/22/22 Range/Units 17:36 Total Bilirubin 1.1 H (0.0-1.0) mg/dL Direct Bilirubin 0.4 (0.0-0.5) mg/dL AST 29 (5-31) U/L ALT 36 H (0-31) U/L Alkaline Phosphatase 103 D (39-117) U/L Albumin 4.4 (3.5-5.0) g/dL Urine 04/22/22 Range/Units 17:36 Urine Color YELLOW Urine Appearance HAZY Urine pH 6.0 (5.0-8.0) Ur Specific [place] <= 1.005 (1.005-1.025) Urine Protein NEG (NEG-TRACE) MG/DL Urine Glucose (UA) NEG (NEG) MG/DL Additional studies: Laboratory Results WBC 12.0 X10*3/uL (4.8-10.8) H 04/22/22 17:36 RBC 5.18 X10*6/uL (4.20-5.50) 04/22/22 17:36 Hgb 14.3 g/dl (12.0-16.0) 04/22/22 17:36 Hct 43.9 % (37.0-47.0) 04/22/22 17:36 MCV 84.7 fL (80.0-98.0) 04/22/22 17:36 MCH 27.6 pg (27.0-33.0) 04/22/22 17:36 MCHC 32.6 g/dl (31.0-35.0) 04/22/22 17:36 RDW 13.3 % (11.0-16.0) 04/22/22 17:36 Plt Count 303 X10*3/uL (160-400) 04/22/22 17:36 MPV 8.5 fL (9.4-12.3) L 04/22/22 17:36 Immature Gran % (Auto) 0.5 % (0.0-0.4) H 04/22/22 17:36 Neut % (Auto) 73.9 % (45-73) H 04/22/22 17:36 Lymph % (Auto) 16.9 % (20-40) L 04/22/22 17:36 [place] % (Auto) 8.1 % (2-11) 04/22/22 17:36 Eos % (Auto) 0.4 % (0-4) 04/22/22 17:36 Baso % (Auto) 0.2 % (0-2) 04/22/22 17:36 Lymph # (Auto) 2.0 X10*3/uL (1.2-4.9) 04/22/22 17:36 [place] # (Auto) 1.0 X10*3/uL (0.1-1.2) 04/22/22 17:36 Eos # (Auto) 0.1 X10*3/uL (0.0-0.4) 04/22/22 17:36 Baso # (Auto) 0.0 X10*3/uL (0.0-0.2) 04/22/22 17:36 Abs Immat Gran (auto) 0.06 X10*3/uL (0.00-0.03) H 04/22/22 17:36 Absolute Neuts (auto) 8.8 x10*3/uL (2.0-8.3) H 04/22/22 17:36 Absolute Nucleated RBC 0.000 X10*3/uL (0.0-0.012) 04/22/22 17:36 Nucleated RBC % (auto) 0.0 /100WBC (0.0-0.2) 04/22/22 17:36 Sodium 142 mmol/L (135-145) 04/22/22 17:36 Potassium 4.3 mmol/L (3.3-5.1) 04/22/22 17:36 Chloride 105 mmol/L (96-108) 04/22/22 17:36 Carbon Dioxide 24 mmol/L (22-29) 04/22/22 17:36 Anion Gap 17 (12-20) 04/22/22 17:36 BUN 19 mg/dL (9-16) H 04/22/22 17:36 Creatinine 1.22 mg/dL (0.5-1.4) 04/22/22 17:36 Estim Creat Clear Calc 52.4 04/22/22 17:36 Estimated GFR 45 04/22/22 17:36 Random Glucose 82 mg/dL (60-115) 04/22/22 17:36 Calcium 9.5 mg/dL (8.4-10.2) 04/22/22 17:36 Magnesium 2.3 mg/dL (1.6-2.6) 04/22/22 17:36 Total Bilirubin 1.1 mg/dL (0.0-1.0) H 04/22/22 17:36 Direct Bilirubin 0.4 mg/dL (0.0-0.5) 04/22/22 17:36 AST 29 U/L (5-31) 04/22/22 17:36 ALT 36 U/L (0-31) H 04/22/22 17:36 Alkaline Phosphatase 103 U/L (39-117) D 04/22/22 17:36 Total Protein 7.2 g/dL (6.5-8.0) 04/22/22 17:36 Albumin 4.4 g/dL (3.5-5.0) 04/22/22 17:36 Lipase 14 U/L (8-78) 04/22/22 17:36 Urine Color YELLOW 04/22/22 17:36 Urine Appearance HAZY 04/22/22 17:36 Urine pH 6.0 (5.0-8.0) 04/22/22 17:36 Ur Specific [place] <= 1.005 (1.005-1.025) 04/22/22 17:36 Urine Protein NEG MG/DL (NEG-TRACE) 04/22/22 17:36 Urine Glucose (UA) NEG MG/DL (NEG) 04/22/22 17:36 Urine Ketones 40 MG/DL (NEG) 04/22/22 17:36 Urine Blood TRACE (NEG) 04/22/22 17:36 Urine Nitrite NEG (NEG) 04/22/22 17:36 Ur Leukocyte Esterase 3+ (NEG) H 04/22/22 17:36 Urine RBC 1-4 /HPF (0) 04/22/22 17:36 Urine WBC 76-150 /HPF (0-4) H 04/22/22 17:36 Ur Squamous Epith Cells 2+ /LPF 04/22/22 17:36 Urine Bacteria 1+ /LPF 04/22/22 17:36 COVID-19 ([facility]) Negative (Negative) 04/22/22 11:52 COVID-19 Clin Com See Note 04/22/22 11:52 Impressions Abdomen/Pelvis CT 04/22/22 19:01 IMPRESSION: Segmental wall thickening with luminal narrowing and pericolonic fat stranding involving the sigmoid colon. There are numerous regional diverticula. The pattern is consistent with moderately severe acute diverticulitis. There is no drainable abscess or bowel obstruction. The stranding abuts the dome of the bladder but there is no gas within the urinary bladder. Fleischner guidelines were followed. Assessment and Plan (1) Acute diverticulitis: Status: Acute She lower abdominal pain with a CT scan showing inflammatory changes in the sigmoid c/w acute diverticulitis. She will be placed on bowel rest. I have ordered Zosyn. She does have a benign exam despite her tenderness and she does not appear septic. She actually had initally wanted to leave AMA. She will be hydrated and I have consulted the Hospitalist in view of her multiple medical issues. She understands there is a small cahnce she may require urgent surgery if she worsens or does not improve. Quality Stroke Does the patient have a stroke diagnosis?: No VTE Prior VTE?: No VTE Risk Level:: Medical - moderate - high VTE Device Contraindication: N/A - Device Ordered VTE Drug Contraindication: N/A - Med Ordered Procedures Date of Service Date of Service: 04/23/22
[2022-04-22] MEDS: Piperacillin Sodium/Tazobactam 3.375 GM in 0.9 % Sodium Chloride 50 ML IV (22:07)
--- NOTE | 2022-04-22 22:25 | PHA.MEDREC ---
Pharmacy Consult ? Medication Reconciliation Pharmacy has completed the medication reconciliation.
[2022-04-22] MEDS: Heparin Sodium,Porcine 5,000 UNIT/ML VIAL 5000 UNIT SUBCUT (23:27)
[2022-04-22] MEDS: Morphine Sulfate 4 MG/ML CARTRIDGE 3 MG IVPUSH (23:28)
[2022-04-22] MEDS: 0.9 % Sodium Chloride Flush 3 ML SYRINGE IVFLUSH (23:47)
[2022-04-23 00:54] VITALS: BP 125/62; PULSE 69; RESP 16; TEMP 36.1; O2SAT 96
[2022-04-23] MEDS: Piperacillin Sodium/Tazobactam 3.375 GM in 0.9 % Sodium Chloride 50 ML IV ×4 (04:13→23:03)
[2022-04-23 04:29] VITALS: BP 122/68; PULSE 92; RESP 18; O2SAT 97
[2022-04-23 05:57] VITALS: BP 136/67; PULSE 70; RESP 18; TEMP 37; O2SAT 98
[2022-04-23 06:49] LABS: Hematocrit 40.4 % (37.0-47.0); Hemoglobin 12.8 g/dl (12.0-16.0); Mean Corpuscular HGB Conc 31.7 g/dl (31.0-35.0); Mean Corpuscular Hemoglobin 27.2 pg (27.0-33.0); Platelet Count 287 X10*3/uL (160-400); Red Cell Distribution Width 13.5 % (11.0-16.0); White Blood Count 8.5 X10*3/uL (4.8-10.8)
[2022-04-23 07:14] LABS: Anion Gap 13 (12-20); Blood Urea Nitrogen 20 mg/dL (9-16); Carbon Dioxide 23 mmol/L (22-29); Chloride 109 mmol/L (96-108); Creatinine Clr Calc Pharmacy 58.2; Estimated Glomerular Filt Rate 50; Glucose Random 73 mg/dL (60-115); Potassium 3.8 mmol/L (3.3-5.1); Sodium 141 mmol/L (135-145)
[2022-04-23 07:24] LABS: Calcium 8.8 mg/dL (8.4-10.2)
[2022-04-23] MEDS: Lactated Ringers 1,000 ML 80 ML IVCONT ×2 (08:21→22:58)
[2022-04-23] MEDS: 0.9 % Sodium Chloride Flush 3 ML SYRINGE IVFLUSH (08:22)
[2022-04-23] MEDS: Morphine Sulfate 4 MG/ML CARTRIDGE 3 MG IVPUSH ×3 (08:30→22:59)
--- NOTE | 2022-04-23 09:02 | HO.PM.IMCN ---
History of Present Illness Data of Consult Service Date: 04/23/22 Primary Care Provider: Marcos Rocha [facility] HPI Reason for consult: Medical mgmt This is a 62 yo F with a PMH as outlined below who is admitted under the surgical services for acute diverticulitis. Medical consult requested for medical management. Pt is seen and examined. She reports her symptoms started several days prior to hospitalization. She reports that they were sudden in onset. She reports fevers at home. She reports left lower quadrant pain. She reports nausea and vomiting. She denies any diarrhea. No bleeding. She reports that this is her 3rd episode of diverticulitis. Last 1 was about 6 months ago and the 1 before that was about 20 years ago. Currently, the patient reports her pain is controlled as she has just received IV analgesics. Review of Systems Review of Systems: negative except HPI [facility] Medical History Acute diverticulitis Asthma COPD (chronic obstructive pulmonary disease) Depression Diverticular disease Dyslipidemia Fibromyalgia HTN (hypertension) Hypothyroid Lumbar spondylosis Macular degeneration Seborrheic keratosis Family History Father Unknown family medical history Mother Unknown family medical history Surgical History H/O breast biopsy History of colonoscopy History of hysterectomy History of knee replacement procedure of left knee History of knee replacement procedure of right knee History of surgery Social History Housing: House Alcohol intake: never Patient Tobacco Use Status: Never used Tobacco e-Cigarette/Vaping Use: Never Used Second Hand Smoke Exposure: No Advance Directives: Yes Advance Directives Information Provided: No Advance Directives on File: No Advance Directives Date on File: 01/08/22 service: No Current occupational status: retired Cognitive needs: No Hearing needs: No Vision needs: No Meds Allergies Allergy/AdvReac Type Severity Reaction Status Date / Time lactose Allergy Unknown lactose Verified 01/25/22 11:30 intolerant GI upset sulfamethoxazole Allergy Unknown vomiting Verified 01/25/22 11:30 tizanidine Allergy Vomiting Verified 01/25/22 11:30 Active Medications: Current Medications Heparin Sodium (Porcine) (Heparin Sodium,Porcine 5,000 Unit/Ml Vial) 5,000 unit SUBCUT Q12H [facility] Last Admin: 04/22/22 23:27 Dose: 5,000 unit Piperacillin Sod/Tazobactam (Sod 3.375 gm/ Sodium Chloride) 50 mls @ 100 mls/hr IV Q6H [facility] Last Infusion: 04/23/22 04:45 Dose: Infused Lactated Ringer's (Lr) 1,000 mls @ 80 mls/hr IVCONT .[id number] [facility] Last Admin: 04/23/22 08:21 Dose: 80 mls/hr Morphine Sulfate (Morphine Sulfate 4 Mg/Ml Cartridge) 3 mg IVPUSH Q6H PRN; Protocol PRN Reason: Pain, Severe (Pain Scale 7-10) Last Admin: 04/23/22 08:30 Dose: 3 mg Ondansetron HCl (Ondansetron Hcl 4 Mg/2 Ml Vial) 4 mg IVPUSH Q6H PRN PRN Reason: nausea Oxycodone HCl (Oxycodone Hcl Immed Release 5 Mg Tablet) 5 mg PO Q4H PRN PRN Reason: Pain, Moderate (Pain Scale 4-6 Sodium Chloride (0.9 % Sodium Chloride Flush 3 Ml Syringe) 3 ml IVFLUSH QSHIFT [facility] Last Admin: 04/23/22 08:22 Dose: 3 ml Home Medications Medication Instructions Recorded Confirmed Last Taken Type acetaminophen 500 mg tablet 1,000 mg PO Q6H PRN Pain 08/20/20 04/22/22 04/21/22 History (Tylenol Extra Strength) albuterol sulfate 90 mcg/actuation 2 puff inhalation Q4-6H PRN 08/20/20 04/22/22 04/21/22 History aerosol inhaler Wheezing bupropion HCl 300 mg 24 hr tablet, 300 mg PO QAM 08/20/20 04/22/22 04/21/22 History extended release calcium carbonate 600 mg calcium 600 mg PO BID 08/20/20 04/22/22 04/21/22 History (1,500 mg) tablet (Calcium) cholecalciferol (vitamin D3) 25 25 mcg PO DAILY 08/20/20 04/22/22 04/21/22 History mcg (1,000 unit) capsule cranberry extract 425 mg capsule 425 mg PO DAILY 08/20/20 04/22/2204/21/22 History loratadine 10 mg tablet 10 mg PO DAILY 08/20/20 04/22/22 04/22/22 08:00 History multivitamin 1 tab PO DAILY 08/20/20 04/22/22 Unknown History cyclosporine 0.05 % eye drops in a 1 drp ophthalmic (eye) BID 09/16/20 04/22/22 04/21/22 History dropperette magnesium 250 mg tablet 250 mg PO DAILY 04/23/21 04/22/22 Unknown History lutein 40 mg capsule 40 mg PO DAILY 09/09/21 04/22/22 Unknown History rosuvastatin 10 mg tablet 10 mg PO .QOD 12/31/21 04/22/22 Unknown History gabapentin 600 mg tablet 1,200 mg PO DAILY 04/22/22 04/22/22 04/21/22 History tiotropium bromide 18 mcg capsule 1 cap inhalation DAILY 04/22/22 04/22/22 Unknown History with inhalation device (Spiriva with HandiHaler) Physical Exam Vital Signs and Narrative: Vital Signs: Last Vital Signs Temp 98.6 F 04/23/22 05:57 Pulse 70 04/23/22 05:57 Resp 18 04/23/22 05:57 BP 136/67 04/23/22 05:57 Pulse Ox 98 04/23/22 05:57 O2 Del Method 04/23/22 05:57 O2 Flow Rate 3 04/22/22 20:05 BMI result Body Mass Index 33.3 Const: Other: Constitutional - Awake and Alert, No apparent distress Eyes - PERRLA, EOMI Cardiovascular - S1S2, RRR, No edema Respiratory - Normal lung expansion, Normal respiratory effort, No respiratory distress, CTA bilaterally Gastrointestinal - mild LLQ TTP without rebound or guarding - No CVA tenderness Extremities - no calf tenderness bilaterally, no swelling Musculoskeletal - Normal inspection, normal ROM Skin - Warm/Dry Neurological - Alert & oriented x3, No focal deficit Psychological - Appropriate affect Results Labs CBC and Chem 7: 04/23/22 05:43 04/23/22 05:43 Labs: Laboratory Results - last 24 hr 04/22/22 04/22/22 04/22/22 11:52 17:36 17:36 MCV 84.7 MCH 27.6 MCHC 32.6 RDW 13.3 Plt Count 303 MPV 8.5 L Immature Gran % (Auto) 0.5 H Neut % (Auto) 73.9 H Lymph % (Auto) 16.9 L [place] % (Auto) 8.1 Eos % (Auto) 0.4 Baso % (Auto) 0.2 Lymph # (Auto) 2.0 [place] # (Auto) 1.0 Eos # (Auto) 0.1 Baso # (Auto) 0.0 Abs Immat Gran (auto) 0.06 H Absolute Neuts (auto) 8.8 H Absolute Nucleated RBC 0.000 Nucleated RBC % (auto) 0.0 Anion Gap 17 Estim Creat Clear Calc 52.4 Estimated GFR 45 Random Glucose 82 Calcium 9.5 Magnesium 2.3 Total Bilirubin 1.1 H Direct Bilirubin 0.4 AST 29 ALT 36 H Alkaline Phosphatase 103 D Total Protein 7.2 Albumin 4.4 Lipase 14 Urine Color Urine Appearance Urine pH Ur Specific [place] Urine Protein Urine Glucose (UA) Urine Ketones Urine Blood Urine Nitrite Ur Leukocyte Esterase Urine RBC Urine WBC Ur Squamous Epith Cells Urine Bacteria COVID-19 (CHUCKY) Negative COVID-19 Clin Com See Note 04/22/22 04/23/22 04/23/22 17:36 05:43 05:43 MCV 86.0 MCH 27.2 MCHC 31.7 RDW 13.5 Plt Count 287 MPV 9.0 L Immature Gran % (Auto) Neut % (Auto) Lymph % (Auto) [place] % (Auto) Eos % (Auto) Baso % (Auto) Lymph # (Auto) [place] # (Auto) Eos # (Auto) Baso # (Auto) Abs Immat Gran (auto) Absolute Neuts (auto) Absolute Nucleated RBC 0.000 Nucleated RBC % (auto) 0.0 Anion Gap 13 Estim Creat Clear Calc 58.2 Estimated GFR 50 Random Glucose 73 Calcium 8.8 D Magnesium Total Bilirubin Direct Bilirubin AST ALT Alkaline Phosphatase Total Protein Albumin Lipase Urine Color YELLOW Urine Appearance HAZY Urine pH 6.0 Ur Specific [place] <= 1.005 Urine Protein NEG Urine Glucose (UA) NEG Urine Ketones 40 Urine Blood TRACE Urine Nitrite NEG Ur Leukocyte Esterase 3+ H Urine RBC 1-4 Urine WBC 76-150 H Ur Squamous Epith Cells 2+ Urine Bacteria 1+ COVID-19 (CHUCKY) COVID-19 Clin Com Imaging Radiologist's Impressions: Impressions Abdomen/Pelvis CT 04/22/22 19:01 IMPRESSION: Segmental wall thickening with luminal narrowing and pericolonic fat stranding involving the sigmoid colon. There are numerous regional diverticula. The pattern is consistent with moderately severe acute diverticulitis. There is no drainable abscess or bowel obstruction. The stranding abuts the dome of the bladder but there is no gas within the urinary bladder. Fleischner guidelines were followed. Assessment and Plan (1) Diverticular disease: Status: Acute Plan 62 yo F with a PMH of HTN, asthma/copd, depression, firbomyalgia, hypothyroidism, HLD, who is admitted under the general surgical services for acute diverticulitis. Medical consult requested for routine medical mgmt. 1.HTN BP wnl at this time, will hold bp meds today 2. Chronic asthma/copd not in exacerbation -- continue baseline inhalers 3. Hypothyroidism synthroid 4. Mood continue baseline meds 5. Acute diverticulitis agree with IVF, IV zosyn, bowel rest 6. Pyuria does not endorse any specific symptoms follow cultures zosyn should cover in case she has UTI Will follow as needed. Please message with any questions. Thank you.
--- NOTE | 2022-04-23 09:16 | P.PNGS_ITS ---
Subjective Subjective Date of Service: 04/23/22 Interval history: still has some lower abdominal pain but says this is better asking for food no fever overnight clinically looks more comfortable Physical Exam Vital Signs: Vital Signs: Last Vital Signs Temp 98.6 F 04/23/22 05:57 Pulse 70 04/23/22 05:57 Resp 18 04/23/22 05:57 BP 136/67 04/23/22 05:57 Pulse Ox 98 04/23/22 05:57 O2 Del Method 04/23/22 05:57 O2 Flow Rate 3 04/22/22 20:05 BMI result Body Mass Index 33.3 Const: General: comfortable and no acute distress Resp: Effort & Inspection: normal respiratory effort Cardio: Rate: regular rate GI: Other: some tenderness lower abdomen Palpation (GI): Soft to palpation, not firm and no guarding Objective Data Active Medications Heparin Sodium (Porcine) (Heparin Sodium,Porcine 5,000 Unit/Ml Vial) 5,000 unit SUBCUT Q12H [facility] Last Admin: 04/22/22 23:27 Dose: 5,000 unit Documented By: PATRICIA Piperacillin Sod/Tazobactam (Sod 3.375 gm/ Sodium Chloride) 50 mls @ 100 mls/hr IV Q6H [facility] Last Infusion: 04/23/22 04:45 Dose: 0 mls/hr Documented By: TAMARA Lactated Ringer's (Lr) 1,000 mls @ 80 mls/hr IVCONT .[id number] [facility] Last Admin: 04/23/22 08:21 Dose: 80 mls/hr Documented By: MARTIN Morphine Sulfate (Morphine Sulfate 4 Mg/Ml Cartridge) 3 mg IVPUSH Q6H PRN; Protocol PRN Reason: Pain, Severe (Pain Scale 7-10) Last Admin: 04/23/22 08:30 Dose: 3 mg Documented By: MARTIN Ondansetron HCl (Ondansetron Hcl 4 Mg/2 Ml Vial) 4 mg IVPUSH Q6H PRN PRN Reason: nausea Oxycodone HCl (Oxycodone Hcl Immed Release 5 Mg Tablet) 5 mg PO Q4H PRN PRN Reason: Pain, Moderate (Pain Scale 4-6 Sodium Chloride (0.9 % Sodium Chloride Flush 3 Ml Syringe) 3 ml IVFLUSH QSHIFT [facility] Last Admin: 04/23/22 08:22 Dose: 3 ml Documented By: MARTIN Labs CBC & Chem 7: 04/23/22 05:43 04/23/22 05:43 Labs: Laboratory Results - last 24 hr 04/22/22 04/22/22 04/22/22 11:52 17:36 17:36 MCV 84.7 MCH 27.6 MCHC 32.6 RDW 13.3 Plt Count 303 MPV 8.5 L Immature Gran % (Auto) 0.5 H Neut % (Auto) 73.9 H Lymph % (Auto) 16.9 L [place] % (Auto) 8.1 Eos % (Auto) 0.4 Baso % (Auto) 0.2 Lymph # (Auto) 2.0 [place] # (Auto) 1.0 Eos # (Auto) 0.1 Baso # (Auto) 0.0 Abs Immat Gran (auto) 0.06 H Absolute Neuts (auto) 8.8 H Absolute Nucleated RBC 0.000 Nucleated RBC % (auto) 0.0 Anion Gap 17 Estim Creat Clear Calc 52.4 Estimated GFR 45 Random Glucose 82 Calcium 9.5 Magnesium 2.3 Total Bilirubin 1.1 H Direct Bilirubin 0.4 AST 29 ALT 36 H Alkaline Phosphatase 103 D Total Protein 7.2 Albumin 4.4 Lipase 14 Urine Color Urine Appearance Urine pH Ur Specific [place] Urine Protein Urine Glucose (UA) Urine Ketones Urine Blood Urine Nitrite Ur Leukocyte Esterase Urine RBC Urine WBC Ur Squamous Epith Cells Urine Bacteria COVID-19 (CHUCKY) Negative COVID-19 Clin Com See Note 04/22/22 04/23/22 04/23/22 17:36 05:43 05:43 MCV 86.0 MCH 27.2 MCHC 31.7 RDW 13.5 Plt Count 287 MPV 9.0 L Immature Gran % (Auto) Neut % (Auto) Lymph % (Auto) [place] % (Auto) Eos % (Auto) Baso % (Auto) Lymph # (Auto) [place] # (Auto) Eos # (Auto) Baso # (Auto) Abs Immat Gran (auto) Absolute Neuts (auto) Absolute Nucleated RBC 0.000 Nucleated RBC % (auto) 0.0 Anion Gap 13 Estim Creat Clear Calc 58.2 Estimated GFR 50 Random Glucose 73 Calcium 8.8 D Magnesium Total Bilirubin Direct Bilirubin AST ALT Alkaline Phosphatase Total Protein Albumin Lipase Urine Color YELLOW Urine Appearance HAZY Urine pH 6.0 Ur Specific [place] <= 1.005 Urine Protein NEG Urine Glucose (UA) NEG Urine Ketones 40 Urine Blood TRACE Urine Nitrite NEG Ur Leukocyte Esterase 3+ H Urine RBC 1-4 Urine WBC 76-150 H Ur Squamous Epith Cells 2+ Urine Bacteria 1+ COVID-19 (CHUCKY) COVID-19 Clin Com Procedures Date of Service Date of Service: 04/23/22 Progress Note: A&P Assessment and plan (1) Acute diverticulitis: Status: Acute Assessment and Plan: exam remains benign less pain today likely to be able to start with clear liquids later IV antibiotics appreciate hospitalist input she seems to be responding to current treatment Time Spent With Patient Time: Total time spent is greater than 50% in coordination of care (as documented) at patient's floor/unit and/or counseling patient: Quality Stroke Does the patient have a stroke diagnosis?: No VTE Prior VTE?: No VTE Risk Level:: Medical - moderate - high VTE Device Contraindication: N/A - Device Ordered VTE Drug Contraindication: N/A - Med Ordered
--- NOTE | 2022-04-23 09:53 | MHC.CM.PN ---
Patient lives in a house with her /HCP/Saúl @ [phone] and she required no services nor DME [employer]OYMENT [employer]. Home no services is the goal and CM has initiated and will follow for dc planning. Patient's PCP is Dr. Marcos Rocha and she has received CovSimScale/Moderna vax X3.
[2022-04-23 18:04] VITALS: BP 143/76; PULSE 74; RESP 18; TEMP 37.2; O2SAT 95
[2022-04-23] MEDS: oxyCODONE HCl Immed Release 5 MG TABLET PO (18:30)
[2022-04-23 22:08] VITALS: BP 163/71; PULSE 85; RESP 18; TEMP 36.4; O2SAT 93
[2022-04-23] MEDS: Heparin Sodium,Porcine 5,000 UNIT/ML VIAL 5000 UNIT SUBCUT (23:03)
[2022-04-24] VITALS (9 sets, daily range): BP systolic 131–179; BP diastolic 72–96; PULSE 65–75; RESP 14–18; TEMP 36.4–36.9; O2SAT 95–99; BMI 33.3
[2022-04-24] MEDS: Piperacillin Sodium/Tazobactam 3.375 GM in 0.9 % Sodium Chloride 50 ML IV ×4 (05:22→22:03)
[2022-04-24] MEDS: Levothyroxine Sodium 125 MCG TABLET PO (05:23)
[2022-04-24] MEDS: buPROPion HCl XL 300 MG TAB.ER.24H PO (10:01)
[2022-04-24] MEDS: Fluticasone/Vilanterol 200/25 BLST.W.DEV 1 PUFF INHALE (10:01)
[2022-04-24] MEDS: Montelukast Sodium 10 MG TABLET PO (10:01)
[2022-04-24] MEDS: Heparin Sodium,Porcine 5,000 UNIT/ML VIAL 5000 UNIT SUBCUT ×2 (10:01→22:03)
[2022-04-24] MEDS: Loratadine 10 MG TABLET PO (10:01)
[2022-04-24] MEDS: Gabapentin 600 MG TABLET 1200 MG PO (10:01)
[2022-04-24] MEDS: Lactated Ringers 1,000 ML 80 ML IVCONT ×2 (10:06→23:33)
[2022-04-24] MEDS: Morphine Sulfate 4 MG/ML CARTRIDGE 3 MG IVPUSH ×3 (10:18→23:32)
--- NOTE | 2022-04-24 10:27 | PM.PNGS ---
Subjective Subjective Date of Service: 04/24/22 Patient reports: flatus Interval history: In coverage for Dr. Gutierrez. Notes, imaging and labs reviewed. Patient reports overall improvement and is passing gas but still notes that she is having some lower abdominal pain. This pain is not worse with palpation and not worse with movement. She denies feeling bloated and in addition denies any headache, visual changes, chest pain, difficulty breathing, shortness of breath. Overall, she believes she is feeling better and is thirsty/hungry. Physical Exam Vital Signs: Vital Signs: Last Vital Signs Temp 97.7 F 04/24/22 08:40 Pulse 73 04/24/22 10:04 Resp 18 04/24/22 10:04 BP 146/74 H 04/24/22 08:40 Pulse Ox 95 04/24/22 08:40 O2 Del Method 04/24/22 08:40 O2 Flow Rate 3 04/22/22 20:05 BMI result Body Mass Index 33.3 She is nontoxic and in good spirits NC/AT, PERRLA, EOMI Sclera are anicteric Abdomen is obese and soft. No rebound, rigidity or guarding is noted Patient reports some mild discomfort in her suprapubic and left lower quadrant area. Extremities are free of cyanosis clubbing edema Objective Data Active Medications Bupropion HCl (Bupropion Hcl Xl 300 Mg Tab.Er.24h) 300 mg PO DAILY [facility] Last Admin: 04/24/22 10:01 Dose: 300 mg Documented By: LACHO Fluticasone/Vilanterol (Fluticasone/Vilanterol 200/25 Blst.W.Dev) 1 puff INHALE RDAILY [facility] Last Admin: 04/24/22 10:01 Dose: 1 puff Documented By: NARA Gabapentin (Gabapentin 600 Mg Tablet) 1,200 mg PO DAILY [facility] Last Admin: 04/24/22 10:01 Dose: 1,200 mg Documented By: LACHO Heparin Sodium (Porcine) (Heparin Sodium,Porcine 5,000 Unit/Ml Vial) 5,000 unit SUBCUT Q12H [facility] [place] Last Admin: 04/24/22 10:01 Dose: 5,000 unit Documented By: LACHO Piperacillin Sod/Tazobactam (Sod 3.375 gm/ Sodium Chloride) 50 mls @ 100 mls/hr IV Q6H [facility] [place] Last Admin: 04/24/22 10:02 Dose: 100 mls/hr Documented By: LACHO Lactated Ringer's (Lr) 1,000 mls @ 80 mls/hr IVCONT .[id number] [facility] Last Admin: 04/24/22 10:06 Dose: 80 mls/hr Documented By: LACHO Levothyroxine Sodium (Levothyroxine Sodium 125 Mcg Tablet) 125 mcg PO DAILY@0600 [facility] [place] Last Admin: 04/24/22 05:23 Dose: 125 mcg Documented By: YAYA Loratadine (Loratadine 10 Mg Tablet) 10 mg PO DAILY [facility] [place] Last Admin: 04/24/22 10:01 Dose: 10 mg Documented By: LACHO Montelukast Sodium (Montelukast Sodium 10 Mg Tablet) 10 mg PO DAILY [facility] [place] Last Admin: 04/24/22 10:01 Dose: 10 mg Documented By: LACHO Morphine Sulfate (Morphine Sulfate 4 Mg/Ml Cartridge) 3 mg IVPUSH Q6H PRN; Protocol PRN Reason: Pain, Severe (Pain Scale 7-10) Last Admin: 04/24/22 10:18 Dose: 3 mg Documented By: LACHO Ondansetron HCl (Ondansetron Hcl 4 Mg/2 Ml Vial) 4 mg IVPUSH Q6H PRN PRN Reason: nausea Oxycodone HCl (Oxycodone Hcl Immed Release 5 Mg Tablet) 5 mg PO Q4H PRN PRN Reason: Pain, Moderate (Pain Scale 4-6 Last Admin: 04/23/22 18:30 Dose: 5 mg Documented By: MARTIN Sodium Chloride (0.9 % Sodium Chloride Flush 3 Ml Syringe) 3 ml IVFLUSH QSHIFT [facility] [place] Last Admin: 04/24/22 10:03 Dose: Not Given Documented By: LACHO Non-Admin Reason: IV Running Tiotropium [place] (Tiotropium [place] 18 Mcg Cap.W.Dev) 1 puff INHALE RDAILY [facility] Last Admin: 04/24/22 10:01 Dose: 1 puff Documented By: NARA Labs CBC & Chem 7: 04/23/22 05:43 04/23/22 05:43 Microbiology Microbiology Results: Microbiology 04/22/22 17:47 Urine Culture - Preliminary Urine clean catch - Urine rodriguez top Culture too young to evaluate. Procedures Date of Service Date of Service: 04/24/22 Progress Note: A&P Assessment and plan (1) Diverticular disease: Status: Acute (2) Acute diverticulitis: Status: Acute (3) COPD exacerbation: Status: Acute Plan The patient reports her asthma/COPD is stable with her breathing treatments. Continue to monitor and treat. Her diverticular disease is making steady progress. Try to slowly advance clear liquids today. Continue IV fluid for now. Hold p.o. intake for bloating, nausea, vomiting or worsening abdominal pain. Labs have normalized and her clinical exam is improving. Time Spent With Patient Time: Total time spent is greater than 50% in coordination of care (as documented) at patient's floor/unit and/or counseling patient: Quality Stroke Does the patient have a stroke diagnosis?: No VTE Prior VTE?: No VTE Risk Level:: Medical - moderate - high VTE Device Contraindication: N/A - Device Ordered VTE Drug Contraindication: N/A - Med Ordered
[2022-04-25] VITALS (8 sets, daily range): BP systolic 135–178; BP diastolic 74–94; PULSE 64–75; RESP 14–18; TEMP 36–36.6; O2SAT 92–96
[2022-04-25] MEDS: Losartan Potassium 50 MG TABLET 100 MG PO ×2 (01:30→10:00)
[2022-04-25] MEDS: Levothyroxine Sodium 125 MCG TABLET PO (04:57)
[2022-04-25] MEDS: Piperacillin Sodium/Tazobactam 3.375 GM in 0.9 % Sodium Chloride 50 ML IV ×4 (04:57→22:17)
[2022-04-25] MEDS: Morphine Sulfate 4 MG/ML CARTRIDGE 3 MG IVPUSH ×2 (05:45→15:22)
[2022-04-25] MEDS: Fluticasone/Vilanterol 200/25 BLST.W.DEV 1 PUFF INHALE (08:31)
--- NOTE | 2022-04-25 09:54 | PM.PNGS ---
Subjective Subjective Date of Service: 04/25/22 Patient reports: still having pain Interval history: The patient reports continued bilateral lower quadrant abdominal pain. She does not believe it is worse with p.o. liquids, but she reports minimal gas and some bloating. She is certainly not worse but reports she is about the same as yesterday. She otherwise denies new problems such as increasing pain in her chest, difficulty breathing, shortness of breath or visual disturbances. Physical Exam Vital Signs: Vital Signs: Last Vital Signs Temp 96.8 F 04/25/22 08:00 Pulse 68 04/25/22 08:34 Resp 16 04/25/22 08:34 BP 135/74 04/25/22 08:00 Pulse Ox 96 04/25/22 08:00 O2 Del Method 04/25/22 08:00 O2 Flow Rate 3 04/22/22 20:05 BMI result Body Mass Index 33.3 NC/AT, PERRLA, EOMI Sclerae anicteric Abdomen is obese with the same degree of tenderness in bilateral lower abdominal quadrants and suprapubic area, however no peritoneal sign or irritation to percussion in this area is present. Objective Data Active Medications Bupropion HCl (Bupropion Hcl Xl 300 Mg Tab.Er.24h) 300 mg PO DAILY [facility] Last Admin: 04/24/22 10:01 Dose: 300 mg Documented By: LACHO Fluticasone/Vilanterol (Fluticasone/Vilanterol 200/25 Blst.W.Dev) 1 puff INHALE RDAILY [facility] Last Admin: 04/25/22 08:31 Dose: 1 puff Documented By: NARA Gabapentin (Gabapentin 600 Mg Tablet) 1,200 mg PO DAILY [facility] Last Admin: 04/24/22 10:01 Dose: 1,200 mg Documented By: LACHO Heparin Sodium (Porcine) (Heparin Sodium,Porcine 5,000 Unit/Ml Vial) 5,000 unit SUBCUT Q12H [facility] Last Admin: 04/24/22 22:03 Dose: 5,000 unit Documented By: YAYA Piperacillin Sod/Tazobactam (Sod 3.375 gm/ Sodium Chloride) 50 mls @ 100 mls/hr IV Q6H [facility] Last Infusion: 04/25/22 06:12 Dose: 100 mls/hr Documented By: YAYA Lactated Ringer's (Lr) 1,000 mls @ 80 mls/hr IVCONT .[id number] [facility] Last Admin: 04/24/22 23:33 Dose: 80 mls/hr Documented By: YAYA Levothyroxine Sodium (Levothyroxine Sodium 125 Mcg Tablet) 125 mcg PO DAILY@0600 [facility] Last Admin: 04/25/22 04:57 Dose: 125 mcg Documented By: YAYA Loratadine (Loratadine 10 Mg Tablet) 10 mg PO DAILY [facility] Last Admin: 04/24/22 10:01 Dose: 10 mg Documented By: LACHO Losartan Potassium (Losartan Potassium 50 Mg Tablet) 100 mg PO DAILY [facility]; Protocol Last Admin: 04/25/22 01:30 Dose: 100 mg Documented By: YAYA Montelukast Sodium (Montelukast Sodium 10 Mg Tablet) 10 mg PO DAILY [facility] Last Admin: 04/24/22 10:01 Dose: 10 mg Documented By: LACHO Morphine Sulfate (Morphine Sulfate 4 Mg/Ml Cartridge) 3 mg IVPUSH Q6H PRN; Protocol PRN Reason: Pain, Severe (Pain Scale 7-10) Last Admin: 04/25/22 05:45 Dose: 3 mg Documented By: YAYA Ondansetron HCl (Ondansetron Hcl 4 Mg/2 Ml Vial) 4 mg IVPUSH Q6H PRN PRN Reason: nausea Oxycodone HCl (Oxycodone Hcl Immed Release 5 Mg Tablet) 5 mg PO Q4H PRN PRN Reason: Pain, Moderate (Pain Scale 4-6 Last Admin: 04/23/22 18:30 Dose: 5 mg Documented By: MARTIN Sodium Chloride (0.9 % Sodium Chloride Flush 3 Ml Syringe) 3 ml IVFLUSH QSHIFT [facility] Last Admin: 04/25/22 01:26 Dose: Not Given Documented By: YAYA Non-Admin Reason: IV Running Tiotropium [place] (Tiotropium [place] 18 Mcg Cap.W.Dev) 1 puff INHALE RDAILY [facility] Last Admin: 04/25/22 08:32 Dose: 1 puff Documented By: NARA Labs CBC & Chem 7: 04/23/22 05:43 04/23/22 05:43 Microbiology Microbiology Results: Microbiology 04/22/22 17:47 Urine Culture - Final Urine clean catch - Urine rodriguez top Procedures Date of Service Date of Service: 04/25/22 Progress Note: A&P Assessment and plan (1) Asthma: Status: Acute (2) Acute diverticulitis: Status: Acute (3) HTN (hypertension): Status: Acute Plan Continue clear liquids for now. Follow clinically. Recheck CBCD Tuesday, 04/26. If the patient is unchanged, repeat CT with oral and IV contrast to exclude abscess will be in order. Continue IV fluid Time Spent With Patient Time: Total time spent is greater than 50% in coordination of care (as documented) at patient's floor/unit and/or counseling patient: Quality Stroke Does the patient have a stroke diagnosis?: No VTE Prior VTE?: No VTE Risk Level:: Medical - moderate - high VTE Device Contraindication: N/A - Device Ordered VTE Drug Contraindication: N/A - Med Ordered
[2022-04-25] MEDS: Heparin Sodium,Porcine 5,000 UNIT/ML VIAL 5000 UNIT SUBCUT (09:59)
[2022-04-25] MEDS: buPROPion HCl XL 300 MG TAB.ER.24H PO (10:00)
[2022-04-25] MEDS: Montelukast Sodium 10 MG TABLET PO (10:00)
[2022-04-25] MEDS: Gabapentin 600 MG TABLET 1200 MG PO (10:01)
[2022-04-25] MEDS: Loratadine 10 MG TABLET PO (10:01)
[2022-04-25] MEDS: Lactated Ringers 1,000 ML 80 ML IVCONT (12:51)
[2022-04-26] MEDS: Morphine Sulfate 4 MG/ML CARTRIDGE 3 MG IVPUSH (02:01)
[2022-04-26 03:18] VITALS: BP 157/84; PULSE 87; RESP 18; TEMP 36.1; O2SAT 93
[2022-04-26] MEDS: Piperacillin Sodium/Tazobactam 3.375 GM in 0.9 % Sodium Chloride 50 ML IV ×4 (04:57→21:40)
[2022-04-26] MEDS: Levothyroxine Sodium 125 MCG TABLET PO (05:00)
[2022-04-26] MEDS: Lactated Ringers 1,000 ML 80 ML IVCONT ×2 (05:29→16:21)
[2022-04-26 05:56] LABS: MANUAL DIFF FLAG NO
[2022-04-26 06:03] LABS: Basophils Percent Auto 0.4 % (0-2); Eosinophils Absolute Auto 0.2 X10*3/uL (0.0-0.4); Eosinophils Percent Auto 3.2 % (0-4); Hematocrit 35.9 % (37.0-47.0); Hemoglobin 12.1 g/dl (12.0-16.0); Imm Gran Abs Auto 0.03 X10*3/uL (0.00-0.03); Imm Gran Pct Auto 0.5 % (0.0-0.4); Mean Corpuscular HGB Conc 33.7 g/dl (31.0-35.0); Mean Corpuscular Volume 83.1 fL (80.0-98.0); Mean Platelet Volume 8.6 fL (9.4-12.3); Monocytes Absolute Auto 0.5 X10*3/uL (0.1-1.2); Neutrophils Absolute Auto 2.9 x10*3/uL (2.0-8.3); Neutrophils Percent Auto 51.9 % (45-73); Platelet Count 308 X10*3/uL (160-400); Red Blood Count 4.32 X10*6/uL (4.20-5.50); Red Cell Distribution Width 12.6 % (11.0-16.0); White Blood Count 5.7 X10*3/uL (4.8-10.8)
[2022-04-26 07:43] VITALS: BP 134/83; PULSE 67; RESP 16; TEMP 36.3; O2SAT 95
[2022-04-26] MEDS: ondansetron HCL 4 MG/2 ML VIAL IVPUSH (09:03)
[2022-04-26] MEDS: Gabapentin 600 MG TABLET 1200 MG PO (09:16)
[2022-04-26] MEDS: Losartan Potassium 50 MG TABLET 100 MG PO (09:16)
[2022-04-26] MEDS: Loratadine 10 MG TABLET PO (09:16)
[2022-04-26] MEDS: Montelukast Sodium 10 MG TABLET PO (09:16)
[2022-04-26] MEDS: Heparin Sodium,Porcine 5,000 UNIT/ML VIAL 5000 UNIT SUBCUT ×2 (09:17→21:40)
[2022-04-26] MEDS: buPROPion HCl XL 300 MG TAB.ER.24H PO (09:17)
--- NOTE | 2022-04-26 09:59 | P.CDIC_ITS ---
CDI Concurrent Query Documentation Clarification: PHYSICIAN'S DOCUMENTATION REQUEST Date of Query: 04/26/22 1000 Patient Name: Radha Jean Admit Date: 04/22/22 Dear Doctor, A review of the medical record indicates additional documentation may be needed. Please review below and update the documentation accordingly. Risk Factors/Clinical Indicators/Treatments Surgery note 04/24 - Assessment/plan: COPD exacerbation, acute. Progress note 04/23 - Assessment/plan: COPD/Asthma, not in exacerbation. Please clarify the following: Treating/resolved/not treating etc. - Exacerbation/Acute - COPD * [Diagnosis] was present on admission and is now resolved * [Diagnosis] was present on admission and is still being monitored, evaluated, or treated * [Diagnosis] was ruled out * [Diagnosis] is still a likely, suspected, probable diagnosis * Other (please specify) * Unable to determine Use of terms such as suspected, likely, concern for, or probable (associated with a specific diagnosis that is being evaluated, monitored, or treated as if it exists) are acceptable and can be coded in the inpatient setting, when documented at the time of discharge. Thank you, Tangela Hall [facility], CDIS Extension: [phone] Please use your independent medical judgment in providing your response. THIS QUERY IS PART OF THE PERMANENT MEDICAL RECORD Provider Response: COPD ( COPD was not in exacerbation) Other Diagnosis: COPD was in not exacerbation
--- NOTE | 2022-04-26 10:13 | P.PNGS_ITS ---
Subjective Subjective Date of Service: 04/26/22 Interval history: Still with some pain but much improved Water stools Passing flatus Has been afebrile Physical Exam Vital Signs: Vital Signs: Last Vital Signs Temp 97.4 F 04/26/22 07:43 Pulse 67 04/26/22 07:43 Resp 16 04/26/22 07:43 BP 134/83 04/26/22 07:43 Pulse Ox 95 04/26/22 07:43 O2 Del Method 04/26/22 07:43 O2 Flow Rate 3 04/22/22 20:05 BMI result Body Mass Index 33.3 Const: General: comfortable and no acute distress Resp: Effort & Inspection: normal respiratory effort Cardio: Rate: regular rate GI: Palpation (GI): Soft to palpation, not firm, Tenderness to palpation present (GI) (Mild tenderness on the lower abdomen) and no guarding Objective Data Active Medications Bupropion HCl (Bupropion Hcl Xl 300 Mg Tab.Er.24h) 300 mg PO DAILY [facility] Last Admin: 04/26/22 09:17 Dose: 300 mg Documented By: GLENDA Fluticasone/Vilanterol (Fluticasone/Vilanterol 200/25 Blst.W.Dev) 1 puff INHALE RDAILY [facility] Last Admin: 04/26/22 08:01 Dose: Not Given Documented By: STACY Non-Admin Reason: Patient Refused Gabapentin (Gabapentin 600 Mg Tablet) 1,200 mg PO DAILY [facility] Last Admin: 04/26/22 09:16 Dose: 1,200 mg Documented By: GLENDA Heparin Sodium (Porcine) (Heparin Sodium,Porcine 5,000 Unit/Ml Vial) 5,000 unit SUBCUT Q12H [facility] Last Admin: 04/26/22 09:17 Dose: 5,000 unit Documented By: GLENDA Piperacillin Sod/Tazobactam (Sod 3.375 gm/ Sodium Chloride) 50 mls @ 100 mls/hr IV Q6H [facility] Last Admin: 04/26/22 09:17 Dose: 100 mls/hr Documented By: GLENDA Lactated Ringer's (Lr) 1,000 mls @ 80 mls/hr IVCONT .[id number] [facility] Last Admin: 04/26/22 05:29 Dose: 80 mls/hr Documented By: YAYA Levothyroxine Sodium (Levothyroxine Sodium 125 Mcg Tablet) 125 mcg PO DAILY@0600 [facility] Last Admin: 04/26/22 05:00 Dose: 125 mcg Documented By: YAYA Loratadine (Loratadine 10 Mg Tablet) 10 mg PO DAILY [facility] Last Admin: 04/26/22 09:16 Dose: 10 mg Documented By: GLENDA Losartan Potassium (Losartan Potassium 50 Mg Tablet) 100 mg PO DAILY [facility]; Protocol Last Admin: 04/26/22 09:16 Dose: 100 mg Documented By: GLENDA Montelukast Sodium (Montelukast Sodium 10 Mg Tablet) 10 mg PO DAILY [facility] Last Admin: 04/26/22 09:16 Dose: 10 mg Documented By: GLENDA Morphine Sulfate (Morphine Sulfate 4 Mg/Ml Cartridge) 3 mg IVPUSH Q6H PRN; Protocol PRN Reason: Pain, Severe (Pain Scale 7-10) Last Admin: 04/26/22 02:01 Dose: 3 mg Documented By: YAYA Ondansetron HCl (Ondansetron Hcl 4 Mg/2 Ml Vial) 4 mg IVPUSH Q6H PRN PRN Reason: nausea Last Admin: 04/26/22 09:03 Dose: 4 mg Documented By: GLENDA Oxycodone HCl (Oxycodone Hcl Immed Release 5 Mg Tablet) 5 mg PO Q4H PRN PRN Reason: Pain, Moderate (Pain Scale 4-6 Last Admin: 04/23/22 18:30 Dose: 5 mg Documented By: MARTIN Sodium Chloride (0.9 % Sodium Chloride Flush 3 Ml Syringe) 3 ml IVFLUSH QSHIFT [facility] Last Admin: 04/26/22 09:08 Dose: Not Given Documented By: GLENDA Non-Admin Reason: IV Running Tiotropium [place] (Tiotropium [place] 18 Mcg Cap.W.Dev) 1 puff INHALE RDAILY [facility] Last Admin: 04/26/22 08:01 Dose: Not Given Documented By: STACY Non-Admin Reason: Patient Refused Labs CBC & Chem 7: 04/26/22 05:25 04/23/22 05:43 Labs: Laboratory Results - last 24 hr 04/26/22 05:25 MCV 83.1 MCH 28.0 MCHC 33.7 RDW 12.6 Plt Count 308 MPV 8.6 L Immature Gran % (Auto) 0.5 H Neut % (Auto) 51.9 Lymph % (Auto) 35.0 [place] % (Auto) 9.0 Eos % (Auto) 3.2 Baso % (Auto) 0.4 Lymph # (Auto) 2.0 [place] # (Auto) 0.5 Eos # (Auto) 0.2 Baso # (Auto) 0.0 Abs Immat Gran (auto) 0.03 Absolute Neuts (auto) 2.9 Absolute Nucleated RBC 0.000 Nucleated RBC % (auto) 0.0 Procedures Date of Service Date of Service: 04/26/22 Progress Note: A&P Assessment and plan (1) Acute diverticulitis: Status: Acute Assessment and Plan: Improving well Pain and tenderness or much less Some water stools likely from antibiotics Full liquid diet today Encouraged to get out of bed and ambulate Time Spent With Patient Time: Total time spent is greater than 50% in coordination of care (as documented) at patient's floor/unit and/or counseling patient: Quality Stroke Does the patient have a stroke diagnosis?: No VTE Prior VTE?: No VTE Risk Level:: Medical - moderate - high VTE Device Contraindication: N/A - Device Ordered VTE Drug Contraindication: N/A - Med Ordered
[2022-04-26 11:29] VITALS: BP 171/90; PULSE 65; RESP 19; TEMP 36.4; O2SAT 97
--- NOTE | 2022-04-26 12:53 | P.CDIC_ITS ---
CDI Concurrent Query Documentation Clarification: PHYSICIAN'S DOCUMENTATION REQUEST Date of Query: 04/26/22 1256 Patient Name: Radha Jean Admit Date: 04/22/22 Dear Doctor, A review of the medical record indicates additional documentation may be needed. Please review below and update the documentation accordingly. Risk Factors/Clinical Indicators/Treatments Nursing notes 04/24 - Height and Weight - BMI 33.3 Class I Obesity If possible, please provide an associated diagnosis related to the abnormal BMI, such as: For a BMI >= 30: * Overweight * Obesity * Due to excess calories * Drug induced * Due to other cause Or: * BMI is not significant * Other (please specify) * Unable to determine Use of terms such as suspected, likely, concern for, or probable (associated with a specific diagnosis that is being evaluated, monitored, or treated as if it exists) are acceptable and can be coded in the inpatient setting, when documented at the time of discharge. Thank you, Tangela Hall [facility], CDIS Extension: [phone] Please use your independent medical judgment in providing your response. THIS QUERY IS PART OF THE PERMANENT MEDICAL RECORD Provider Response: Other ( BMI due to excess calorie) Other Diagnosis: BMI due to excess calories
[2022-04-26] MEDS: 0.9 % Sodium Chloride Flush 3 ML SYRINGE IVFLUSH ×2 (15:52→21:40)
[2022-04-26 16:00] VITALS: BP 124/85; PULSE 68; RESP 18; TEMP 36.4; O2SAT 96
[2022-04-26] MEDS: oxyCODONE HCl Immed Release 5 MG TABLET PO (16:49)
[2022-04-26 19:33] VITALS: BP 160/83; PULSE 76; RESP 18; TEMP 37.1; O2SAT 92
[2022-04-27] VITALS (7 sets, daily range): BP systolic 134–145; BP diastolic 76–87; PULSE 62–77; RESP 16–98; TEMP 36.2–37.1; O2SAT 94–99
[2022-04-27] MEDS: Piperacillin Sodium/Tazobactam 3.375 GM in 0.9 % Sodium Chloride 50 ML IV ×4 (04:53→21:26)
[2022-04-27] MEDS: Levothyroxine Sodium 125 MCG TABLET PO (04:54)
[2022-04-27] MEDS: Lactated Ringers 1,000 ML 80 ML IVCONT (05:04)
[2022-04-27] MEDS: Fluticasone/Vilanterol 200/25 BLST.W.DEV 1 PUFF INHALE (07:33)
[2022-04-27] MEDS: Gabapentin 600 MG TABLET 1200 MG PO (08:53)
[2022-04-27] MEDS: Loratadine 10 MG TABLET PO (08:53)
[2022-04-27] MEDS: buPROPion HCl XL 300 MG TAB.ER.24H PO (08:53)
[2022-04-27] MEDS: Losartan Potassium 50 MG TABLET 100 MG PO (08:53)
[2022-04-27] MEDS: Montelukast Sodium 10 MG TABLET PO (08:53)
--- NOTE | 2022-04-27 08:53 | PM.PNGS ---
Subjective Subjective Date of Service: 04/27/22 Interval history: feels well complaints of water stools minimal pain tolerating full liquids Physical Exam Vital Signs: Vital Signs: Last Vital Signs Temp 97.6 F 04/27/22 07:32 Pulse 65 04/27/22 07:35 Resp 98 H 04/27/22 07:35 BP 138/76 04/27/22 07:32 Pulse Ox 95 04/27/22 07:32 O2 Del Method 04/27/22 07:32 O2 Flow Rate 3 04/22/22 20:05 BMI result Body Mass Index 33.3 Const: General: comfortable and no acute distress Resp: Effort & Inspection: normal respiratory effort Cardio: Rate: regular rate GI: Palpation (GI): Soft to palpation, not firm, nontender and no guarding Objective Data Active Medications Bupropion HCl (Bupropion Hcl Xl 300 Mg Tab.Er.24h) 300 mg PO DAILY [facility] Last Admin: 04/26/22 09:17 Dose: 300 mg Documented By: GLENDA Fluticasone/Vilanterol (Fluticasone/Vilanterol 200/25 Blst.W.Dev) 1 puff INHALE RDAILY [facility] Last Admin: 04/27/22 07:33 Dose: 1 puff Documented By: STACY Gabapentin (Gabapentin 600 Mg Tablet) 1,200 mg PO DAILY [facility] Last Admin: 04/26/22 09:16 Dose: 1,200 mg Documented By: GLENDA Heparin Sodium (Porcine) (Heparin Sodium,Porcine 5,000 Unit/Ml Vial) 5,000 unit SUBCUT Q12H [facility] Last Admin: 04/26/22 21:40 Dose: 5,000 unit Documented By: ROSANA Piperacillin Sod/Tazobactam (Sod 3.375 gm/ Sodium Chloride) 50 mls @ 100 mls/hr IV Q6H [facility] Last Infusion: 04/27/22 05:23 Dose: 0 mls/hr Documented By: ROSANA Lactated Ringer's (Lr) 1,000 mls @ 80 mls/hr IVCONT .[id number] [facility] Last Admin: 04/27/22 05:04 Dose: 80 mls/hr Documented By: ROSANA Levothyroxine Sodium (Levothyroxine Sodium 125 Mcg Tablet) 125 mcg PO DAILY@0600 [facility] Last Admin: 04/27/22 04:54 Dose: 125 mcg Documented By: ROSANA Loratadine (Loratadine 10 Mg Tablet) 10 mg PO DAILY [facility] Last Admin: 04/26/22 09:16 Dose: 10 mg Documented By: GLENDA Losartan Potassium (Losartan Potassium 50 Mg Tablet) 100 mg PO DAILY [facility]; Protocol Last Admin: 04/26/22 09:16 Dose: 100 mg Documented By: GLENDA Montelukast Sodium (Montelukast Sodium 10 Mg Tablet) 10 mg PO DAILY [facility] Last Admin: 04/26/22 09:16 Dose: 10 mg Documented By: GLENDA Morphine Sulfate (Morphine Sulfate 4 Mg/Ml Cartridge) 3 mg IVPUSH Q6H PRN; Protocol PRN Reason: Pain, Severe (Pain Scale 7-10) Last Admin: 04/26/22 02:01 Dose: 3 mg Documented By: YAYA Ondansetron HCl (Ondansetron Hcl 4 Mg/2 Ml Vial) 4 mg IVPUSH Q6H PRN PRN Reason: nausea Last Admin: 04/26/22 09:03 Dose: 4 mg Documented By: GLENDA Oxycodone HCl (Oxycodone Hcl Immed Release 5 Mg Tablet) 5 mg PO Q4H PRN PRN Reason: Pain, Moderate (Pain Scale 4-6 Last Admin: 04/26/22 16:49 Dose: 5 mg Documented By: ANGE Sodium Chloride (0.9 % Sodium Chloride Flush 3 Ml Syringe) 3 ml IVFLUSH QSHIFT [facility] Last Admin: 04/26/22 21:40 Dose: 3 ml Documented By: ROSANA Tiotropium [place] (Tiotropium [place] 18 Mcg Cap.W.Dev) 1 puff INHALE RDAILY [facility] Last Admin: 04/27/22 07:33 Dose: 1 puff Documented By: STACY Labs CBC & Chem 7: 04/26/22 05:25 04/23/22 05:43 Procedures Date of Service Date of Service: 04/27/22 Progress Note: A&P Assessment and plan (1) Acute diverticulitis: Status: Acute Assessment and Plan: symptoms much improved advance diet check stools for C diff continue antibiotics for now patient looks well Time Spent With Patient Time: Total time spent is greater than 50% in coordination of care (as documented) at patient's floor/unit and/or counseling patient: Quality Stroke Does the patient have a stroke diagnosis?: No VTE Prior VTE?: No VTE Risk Level:: Medical - moderate - high VTE Device Contraindication: N/A - Device Ordered VTE Drug Contraindication: N/A - Med Ordered
[2022-04-27] MEDS: Heparin Sodium,Porcine 5,000 UNIT/ML VIAL 5000 UNIT SUBCUT ×2 (08:54→21:30)
[2022-04-27] MEDS: 0.9 % Sodium Chloride Flush 3 ML SYRINGE IVFLUSH ×3 (08:54→21:26)
[2022-04-27 10:56] LABS: CDiff Gene PCR NEGATIVE (Negative)
[2022-04-27] MEDS: Loperamide HCl 2 MG CAPSULE PO (16:15)
[2022-04-27] MEDS: Acetaminophen 325 MG TABLET 650 MG PO (19:19)
[2022-04-28] VITALS: BP 136/71; PULSE 66; RESP 17; TEMP 36.6; O2SAT 96
[2022-04-28 04:00] VITALS: BP 158/78; PULSE 58; RESP 18; TEMP 36.5; O2SAT 96
[2022-04-28] MEDS: Levothyroxine Sodium 125 MCG TABLET PO (04:57)
[2022-04-28] MEDS: Piperacillin Sodium/Tazobactam 3.375 GM in 0.9 % Sodium Chloride 50 ML IV (04:57)
[2022-04-28 07:52] VITALS: BP 132/82; PULSE 60; RESP 16; TEMP 36.2; O2SAT 98
[2022-04-28] MEDS: Loratadine 10 MG TABLET PO (07:53)
[2022-04-28] MEDS: buPROPion HCl XL 300 MG TAB.ER.24H PO (07:53)
[2022-04-28] MEDS: Losartan Potassium 50 MG TABLET 100 MG PO (07:53)
[2022-04-28] MEDS: Montelukast Sodium 10 MG TABLET PO (07:53)
[2022-04-28] MEDS: Gabapentin 600 MG TABLET 1200 MG PO (07:53)
[2022-04-28] MEDS: 0.9 % Sodium Chloride Flush 3 ML SYRINGE IVFLUSH (07:53)
[2022-04-28] MEDS: Fluticasone/Vilanterol 200/25 BLST.W.DEV 1 PUFF INHALE (09:19)
[2022-04-28 09:21] VITALS: PULSE 63; RESP 17; O2SAT 98
--- NOTE | 2022-04-28 09:49 | P.PNGS_ITS ---
Subjective Subjective Date of Service: 04/28/22 Interval history: She feels well Denies abdominal pain Tolerating diet well Physical Exam 2 Vital Signs: Vital Signs: Last Vital Signs Temp 97.2 F 04/28/22 07:52 Pulse 63 04/28/22 09:21 Resp 17 04/28/22 09:21 BP 132/82 04/28/22 07:52 Pulse Ox 98 04/28/22 07:52 O2 Del Method 04/28/22 07:52 O2 Flow Rate 3 04/22/22 20:05 BMI result Body Mass Index 33.3 Const: General: comfortable and no acute distress Orientation/consciousne ss: patient oriented x3 Neck: Neck: Yes no lymphadenopathy Resp: Auscultation: clear to auscultation bilaterally Cardio: Rhythm: regular rhythm GI: Palpation (GI): Soft to palpation, nontender and no guarding Neuro: General: patient oriented x3 Objective Data Active Medications Acetaminophen (Acetaminophen 325 Mg Tablet) 650 mg PO Q6H PRN PRN Reason: Pain, Mild (Pain Scale 1-3) Last Admin: 04/27/22 19:19 Dose: 650 mg Documented By: ROSANA Bupropion HCl (Bupropion Hcl Xl 300 Mg Tab.Er.24h) 300 mg PO DAILY [facility] Last Admin: 04/28/22 07:53 Dose: 300 mg Documented By: GLENDA Fluticasone/Vilanterol (Fluticasone/Vilanterol 200/25 Blst.W.Dev) 1 puff INHALE RDAILY [facility] Last Admin: 04/28/22 09:19 Dose: 1 puff Documented By: YOVANY Gabapentin (Gabapentin 600 Mg Tablet) 1,200 mg PO DAILY [facility] Last Admin: 04/28/22 07:53 Dose: 1,200 mg Documented By: GLENDA Heparin Sodium (Porcine) (Heparin Sodium,Porcine 5,000 Unit/Ml Vial) 5,000 unit SUBCUT Q12H [facility] Last Admin: 04/27/22 21:30 Dose: 5,000 unit Documented By: ROSANA Piperacillin Sod/Tazobactam (Sod 3.375 gm/ Sodium Chloride) 50 mls @ 100 mls/hr IV Q6H [facility] Last Infusion: 04/28/22 05:30 Dose: 0 mls/hr Documented By: ROSANA Levothyroxine Sodium (Levothyroxine Sodium 125 Mcg Tablet) 125 mcg PO DAILY@0600 [facility] Last Admin: 04/28/22 04:57 Dose: 125 mcg Documented By: ROSANA Loperamide HCl (Loperamide Hcl 2 Mg Capsule) 2 mg PO TID PRN PRN Reason: Loose Stool Last Admin: 04/27/22 16:15 Dose: 2 mg Documented By: GLENDA Loratadine (Loratadine 10 Mg Tablet) 10 mg PO DAILY [facility] Last Admin: 04/28/22 07:53 Dose: 10 mg Documented By: GLENDA Losartan Potassium (Losartan Potassium 50 Mg Tablet) 100 mg PO DAILY [facility]; Protocol Last Admin: 04/28/22 07:53 Dose: 100 mg Documented By: GLENDA Montelukast Sodium (Montelukast Sodium 10 Mg Tablet) 10 mg PO DAILY [facility] Last Admin: 04/28/22 07:53 Dose: 10 mg Documented By: GLENDA Ondansetron HCl (Ondansetron Hcl 4 Mg/2 Ml Vial) 4 mg IVPUSH Q6H PRN PRN Reason: nausea Last Admin: 04/26/22 09:03 Dose: 4 mg Documented By: GLENDA Sodium Chloride (0.9 % Sodium Chloride Flush 3 Ml Syringe) 3 ml IVFLUSH QSHIFT [facility] Last Admin: 04/28/22 07:53 Dose: 3 ml Documented By: GLENDA Tiotropium [place] (Tiotropium [place] 18 Mcg Cap.W.Dev) 1 puff INHALE RDAILY [facility] Last Admin: 04/28/22 09:19 Dose: 1 puff Documented By: YOVANY Labs CBC & Chem 7: 04/26/22 05:25 04/23/22 05:43 Labs: Laboratory Results - last 24 hr 04/27/22 09:40 C. difficile Tox B Gene NEGATIVE Procedures Date of Service Date of Service: 04/28/22 Progress Note: A&P Assessment and plan (1) Acute diverticulitis: Status: Acute Assessment and Plan: She continues do well Abdomen remained soft and benign and nontender Okay to DC home today Continue oral antibiotics at home Follow-up in the office Time Spent With Patient Time: Total time spent is greater than 50% in coordination of care (as documented) at patient's floor/unit and/or counseling patient: Quality Stroke Does the patient have a stroke diagnosis?: No VTE Prior VTE?: No VTE Risk Level:: Medical - moderate - high VTE Device Contraindication: N/A - Device Ordered VTE Drug Contraindication: N/A - Med Ordered
--- NOTE | 2022-04-28 09:54 | PM.DS ---
DS: Providers Provider Date of Service: 04/23/22 Date of admission: 04/22/22 21:45 Primary care physician: JOEL Butcher Consults: 04/22/22 21:50 Consult to Hospitalist Routine Consulting Provider: Hospitalist Reason For Exam: COPD, HTN DS: Diagnosis Discharge Diagnosis (1) Acute diverticulitis: Status: Acute DS: Summary Hospital Course Hospital Course: 62-year-old female, admitted by the emergency room last 04/23/2022 because of acute diverticulitis. She had a CAT scan showing inflammatory changes surrounding the sigmoid along with small amounts of intraluminal air consistent with microperforation She was started on IV Zosyn. Was kept NPO for bowel rest. She did not have any significant fever. She had a very benign exam despite her tenderness. She was kept on this antibiotic treatment. She was started on clear liquids on her 2nd hospital day and this was early advanced. She continued to tolerate this. She did not have any fever during her hospital stay. The time her discharge on 04/28/2022, she was tolerating regular diet. She had good bowel movements. She had remained afebrile. She was nontender on exam. Time Spent with Patient Time attestation: Total time spent providing and/or coordinating discharge services: Discharge coordination time: Less than 30 minutes Quality: Safe Use of Opioids Does Pt have an Active Cancer Diagnosis on the Problem List?: No Quality: Stroke Does the patient have a stroke diagnosis?: No Physical Exam Vital Signs: Vital Signs: Last Vital Signs Temp 97.2 F 04/28/22 07:52 Pulse 63 04/28/22 09:21 Resp 17 04/28/22 09:21 BP 132/82 04/28/22 07:52 Pulse Ox 98 04/28/22 07:52 O2 Del Method 04/28/22 07:52 O2 Flow Rate 3 04/22/22 20:05 BMI result Body Mass Index 33.3 DS: Data Data Completed and Pending Labs on day of discharge: Laboratory Results - last 24 hr 04/27/22 09:40 C. difficile Tox B Gene NEGATIVE Discharge Plan Discharge Patient Disposition: Home, Self-Care Discharge Diagnosis: Acute diverticulitis Referrals: Marcos Rocha FNP-BC [Primary Care Provider] - 1 Week Arjun Gutierrez MD [Physician] - 1 Week Discharge Medications: New levofloxacin 750 mg tablet 750 mg PO Q24H 6 Days Qty: 6 0RF Rx Instructions: Start this medication on 04/23/2022. First dose given in the emergency department. Diagnosis diverticulitis. metronidazole 500 mg tablet 500 mg PO Q8H 7 Days Qty: 21 0RF Rx Instructions: Diverticulitis Continued fluticasone propion-salmeterol [Wixela Inhub] 500-50 mcg/dose blister with device 1 ea PO BID Qty: 60 2RF docusate sodium [Colace] 100 mg capsule 100 mg PO BID Qty: 60 0RF metronidazole 1 % gel 1 appl topical DAILY 30 Days Qty: 60 1RF tramadol 50 mg tablet 50 mg PO DAILY PRN (Reason: pain) Qty: 30 2RF Rx Instructions: Do not take with Cyclobenzaprine (Flexeril) levothyroxine 125 mcg tablet 125 mcg PO QAM Qty: 90 3RF coenzyme Q10 100 mg capsule 100 mg PO DAILY Qty: 30 3RF diclofenac potassium 50 mg tablet 50 mg PO BID PRN (Reason: pain) 30 Days Qty: 60 1RF gabapentin 600 mg tablet 1,200 mg PO DAILY Spiriva with HandiHaler 18 mcg Capsule, W/Inhalation Device 1 cap INHALATION DAILY cyclosporine 0.05 % dropperette 1 drp ophthalmic (eye) BID rosuvastatin 10 mg tablet 10 mg PO .QOD magnesium 250 mg tablet 250 mg PO DAILY losartan 100 mg tablet 100 mg PO DAILY 90 Days Qty: 90 1RF montelukast 10 mg tablet 10 mg PO DAILY 90 Days Qty: 90 1RF cranberry extract 425 mg capsule 425 mg PO DAILY Rx Instructions: administer with a meal cholecalciferol (vitamin D3) 25 mcg (1,000 unit) capsule 25 mcg PO DAILY loratadine 10 mg tablet 10 mg PO DAILY bupropion HCl 300 mg tablet extended release 24 hr 300 mg PO QAM albuterol sulfate 90 mcg/actuation HFA aerosol inhaler 2 puff inhalation Q4-6H PRN (Reason: Wheezing) multivitamin Tablet 1 tab PO DAILY calcium carbonate [Calcium 600] 600 mg calcium (1,500 mg) tablet 600 mg PO BID acetaminophen [Tylenol Extra Strength] 500 mg tablet 1,000 mg PO Q6H PRN (Reason: Pain) lutein 40 mg capsule 40 mg PO DAILY Rx Instructions: administer with meals Discharge Orders: Discharge Order (Routine); Ordered 04/28/22 Ordered By: Arjun Gutierrez Diet: Advance to usual diet Activity on Discharge: As tolerated Stand Alone Forms: Patient Portal Discharge page, Against Medical Advice Care Plan Goals: Control diverticular disease Health Concerns: Has recurrent diverticulitis Obesity COPD Hypertension Plan of Treatment: Oral antibiotics Assessment: Doing well Patient Instructions: Diverticulosis (ED), Urinary Tract Infection in Women (ED)
== END 2022-04-28 10:40 | disposition home or self-care (01) | DRG 392 ==
LOC: HO.ED 21:57 → HO.EDOVER 22:08 → HO.S3 04-23 18:13
PROVIDERS: Physician Assistant; Surgery; Admitting Provider Surgery; Emergency Provider Internal Medicine; PCP Nurse Practitioner Family; Visit Provider Surgery
DX: K57.20 Diverticulitis of large intestine with perforation and abscess without bleeding (principal); E66.9 Obesity, unspecified; E03.9 Hypothyroidism, unspecified; J44.9 Chronic obstructive pulmonary disease, unspecified; I10 Essential (primary) hypertension; Z68.33 Body mass index [BMI] 33.0-33.9, adult; Z20.822 Contact with and (suspected) exposure to COVID-19; Z96.653 Presence of artificial knee joint, bilateral; Z79.51 Long term (current) use of inhaled steroids; Z79.890 Hormone replacement therapy; Z79.899 Other long term (current) drug therapy
CPT/HCPCS: 36415; 74177; 80048; 80076; 81001; 83690; 83735; 85025; 85027; 87086; 87493; 87635; 96361; 96374; 99285; J1885; J2270; J2405; J2543; Q9967

== ENCOUNTER 2022-05-07 09:46 | Outpatient (REF) | payer OTHER, SELFPAY ==
[2022-05-07 11:52] LABS: MANUAL DIFF FLAG NO
[2022-05-07 12:03] LABS: Basophils Absolute Auto 0.1 X10*3/uL (0.0-0.2); Basophils Percent Auto 0.8 % (0-2); Eosinophils Absolute Auto 0.2 X10*3/uL (0.0-0.4); Eosinophils Percent Auto 2.5 % (0-4); Hematocrit 41.5 % (37.0-47.0); Hemoglobin 13.2 g/dl (12.0-16.0); Imm Gran Abs Auto 0.02 X10*3/uL (0.00-0.03); Imm Gran Pct Auto 0.3 % (0.0-0.4); Lymphocytes Absolute Auto 2.2 X10*3/uL (1.2-4.9); Lymphocytes Percent Auto 36.7 % (20-40); Mean Corpuscular HGB Conc 31.8 g/dl (31.0-35.0); Mean Corpuscular Hemoglobin 27.4 pg (27.0-33.0); Mean Corpuscular Volume 86.1 fL (80.0-98.0); Mean Platelet Volume 8.9 fL (9.4-12.3); Monocytes Absolute Auto 0.7 X10*3/uL (0.1-1.2); Monocytes Percent Auto 12.3 % (2-11); Neutrophils Absolute Auto 2.9 x10*3/uL (2.0-8.3); Neutrophils Percent Auto 47.4 % (45-73); Platelet Count 390 X10*3/uL (160-400); Red Blood Count 4.82 X10*6/uL (4.20-5.50); Red Cell Distribution Width 13.9 % (11.0-16.0)
[2022-05-07 12:17] LABS: Appearance Urine CLEAR; Color Urine YELLOW; Glucose Urine UA NEG (NEG); Leukocyte Esterase Urine NEG (NEG); Nitrite Urine NEG (NEG); Urine Blood NEG (NEG); Urine Ketones NEG (NEG); Urine Protein NEG (NEG-TRACE)
[2022-05-07 12:24] LABS: Alanine Aminotransferase 42 U/L (0-31); Alkaline Phosphatase 77 U/L (39-117); Anion Gap 12 (12-20); Aspartate Amino Transferase 34 U/L (5-31); Bilirubin Total 0.5 mg/dL (0.0-1.0); Blood Urea Nitrogen 12 mg/dL (9-16); Calcium 9.4 mg/dL (8.4-10.2); Carbon Dioxide 29 mmol/L (22-29); Estimated Glomerular Filt Rate > 60; Glucose Random 89 mg/dL (60-115); Potassium 4.3 mmol/L (3.3-5.1); Total Protein 6.3 g/dL (6.5-8.0)
[2022-05-07 12:42] LABS: Albumin Level 4.1 g/dL (3.5-5.0); Chloride 105 mmol/L (96-108); Sodium 142 mmol/L (135-145)
== END 2022-05-07 09:47 | disposition home or self-care (01) ==
LOC: HO.HMGCLDS 09:46
PROVIDERS: PCP Nurse Practitioner Family; Visit Provider Nurse Practitioner Family
DX: Z00.00 Encounter for general adult medical examination without abnormal findings (principal); K57.90 Diverticulosis of intestine, part unspecified, without perforation or abscess without bleeding
CPT/HCPCS: 36415; 80053; 81003; 85025

== ENCOUNTER → 2022-05-12 09:09 | Outpatient (BNVA) | payer OTHER, SELFPAY | PROVIDERS: PCP Nurse Practitioner Family; Visit Provider Surgery | DX: K57.92 Diverticulitis of intestine, part unspecified, without perforation or abscess without bleeding (principal) | CPT/HCPCS: 99212 ==

== ENCOUNTER → 2022-05-25 13:21 | Outpatient (BNVA) | payer OTHER, SELFPAY | PROVIDERS: PCP Nurse Practitioner Family; Visit Provider Dietitian, Registered | DX: E66.9 Obesity, unspecified (principal); K57.90 Diverticulosis of intestine, part unspecified, without perforation or abscess without bleeding; Z71.3 Dietary counseling and surveillance | CPT/HCPCS: 97802 ==

== ENCOUNTER → 2022-06-18 08:00 | Outpatient (BNVA) | payer OTHER, SELFPAY | PROVIDERS: PCP Nurse Practitioner Family; Referring Provider Nurse Practitioner Family; Visit Provider Nurse Practitioner | DX: K57.92 Diverticulitis of intestine, part unspecified, without perforation or abscess without bleeding (principal); K59.04 Chronic idiopathic constipation | CPT/HCPCS: 99202; 99212 ==

== ENCOUNTER 2022-07-07 09:21 | Outpatient (REF) | payer OTHER, SELFPAY ==
[2022-07-07 11:13] LABS: MANUAL DIFF FLAG NO
[2022-07-07 11:14] LABS: Appearance Urine Clear; Color Urine Dark Yellow; Glucose Urine UA Negative (Negative); Leukocyte Esterase Urine Trace (Negative); Nitrite Urine Negative (Negative); PH 5.5 (5.0-9.0); Specific Gravity - Urine >= 1.030 (1.005-1.025); UMIC TRIGGER UACC YES; Urine Blood Negative (Negative); Urine Ketones Trace mg/dL (Negative); Urine Protein Trace mg/dL (Neg-Trace)
[2022-07-07 11:16] LABS: Basophils Percent Auto 0.7 % (0-2); Eosinophils Absolute Auto 0.2 X10*3/uL (0.0-0.4); Eosinophils Percent Auto 3.4 % (0-4); Hematocrit 41.4 % (37.0-47.0); Hemoglobin 13.4 g/dl (12.0-16.0); Imm Gran Abs Auto 0.02 X10*3/uL (0.00-0.03); Imm Gran Pct Auto 0.3 % (0.0-0.4); Lymphocytes Absolute Auto 2.4 X10*3/uL (1.2-4.9); Lymphocytes Percent Auto 38.9 % (20-40); Mean Corpuscular HGB Conc 32.4 g/dl (31.0-35.0); Mean Corpuscular Hemoglobin 27.3 pg (27.0-33.0); Mean Corpuscular Volume 84.3 fL (80.0-98.0); Mean Platelet Volume 8.7 fL (9.4-12.3); Monocytes Absolute Auto 0.4 X10*3/uL (0.1-1.2); Monocytes Percent Auto 7.2 % (2-11); Neutrophils Percent Auto 49.5 % (45-73); Platelet Count 322 X10*3/uL (160-400); Red Blood Count 4.91 X10*6/uL (4.20-5.50); Red Cell Distribution Width 14.1 % (11.0-16.0); White Blood Count 6.1 X10*3/uL (4.8-10.8)
[2022-07-07 11:29] LABS: Bacteria Urine None Seen (None Seen); Calcium Oxalate Crystals Urine Present; Squamous Epithelial Cell Urine 0-2 /HPF (0-2); UACC Culture Trigger YES
[2022-07-07 11:31] LABS: Alanine Aminotransferase 36 U/L (0-31); Albumin Level 4.2 g/dL (3.5-5.0); Alkaline Phosphatase 80 U/L (39-117); Anion Gap 13 (12-20); Aspartate Amino Transferase 28 U/L (5-31); Bilirubin Total 0.4 mg/dL (0.0-1.0); Blood Urea Nitrogen 19 mg/dL (9-16); Calcium 9.1 mg/dL (8.4-10.2); Carbon Dioxide 27 mmol/L (22-29); Chloride 107 mmol/L (96-108); Cholesterol 215 mg/dL; Estimated Glomerular Filt Rate 51; Glucose Fasting 88 mg/dL (60-99); HDL Cholesterol 44 mg/dL; Iron 52 mcg/dL (30-160); LDL Cholesterol Calculated 139 mg/dl; Percent Iron Saturation 16 % (15-50); Potassium 3.9 mmol/L (3.3-5.1); Sodium 143 mmol/L (135-145); Total Iron Binding Capacity 332 mcg/dL (228-428); Total Protein 6.5 g/dL (6.5-8.0); Triglycerides 162 mg/dL; Unsaturated Iron Binding 280 ug/dL
[2022-07-07 11:56] LABS: Ferritin 46 ng/mL (10-250); TSH reflex Free T4 4.58 uIU/mL (0.32-4.0)
[2022-07-07 12:01] LABS: Influenza A PCR NEGATIVE (Negative); Influenza B PCR NEGATIVE (Negative); Resp Syncy Virus RNA Qual PCR NEGATIVE (Negative); SARS COV2 PCR INHOUSE NEGATIVE (Negative)
[2022-07-07 12:17] LABS: Folate 18.6 ng/mL (> or = 4.0); Vitamin B12 870 pg/mL (200-900)
[2022-07-07 12:40] LABS: Free T4 (Free Thyroxine) 1.17 ng/dL (0.71-1.85)
== END 2022-07-07 09:22 | disposition home or self-care (01) ==
LOC: HO.HMGCLDS 09:21
PROVIDERS: PCP Nurse Practitioner Family; Visit Provider Nurse Practitioner Family
DX: R53.83 Other fatigue (principal); R74.8 Abnormal levels of other serum enzymes
CPT/HCPCS: 0241U; 36415; 80053; 80061; 81001; 82607; 82728; 82746; 83540; 84439; 84443; 85025; 87086

== ENCOUNTER → 2022-07-16 10:56 | Outpatient (BNVA) | payer OTHER, SELFPAY | PROVIDERS: PCP Nurse Practitioner Family; Visit Provider Dietitian, Registered | DX: Z71.3 Dietary counseling and surveillance (principal); E66.9 Obesity, unspecified; K57.90 Diverticulosis of intestine, part unspecified, without perforation or abscess without bleeding | CPT/HCPCS: 97803 ==

== ENCOUNTER → 2022-07-30 08:12 | Outpatient (BNVA) | payer OTHER, SELFPAY | PROVIDERS: PCP Nurse Practitioner Family; Visit Provider Nurse Practitioner | DX: K59.04 Chronic idiopathic constipation (principal); Z87.19 Personal history of other diseases of the digestive system | CPT/HCPCS: 99212 ==

== ENCOUNTER → 2022-09-09 11:24 | Outpatient (BNVA) | payer OTHER, SELFPAY | PROVIDERS: PCP Nurse Practitioner Family; Visit Provider Nurse Practitioner Family | DX: M47.816 Spondylosis without myelopathy or radiculopathy, lumbar region (principal); M79.641 Pain in right hand; M79.642 Pain in left hand; Z79.891 Long term (current) use of opiate analgesic; Z79.899 Other long term (current) drug therapy | CPT/HCPCS: 99212 ==

== ENCOUNTER 2022-09-21 08:22 | Outpatient (REF) | payer OTHER, SELFPAY ==
--- NOTE | ~2022-09-21 | XR_ITS ---
EXAMINATION: XR hand RT min 3V, XR hand LT min 3V CLINICAL INFORMATION: Pain COMPARISON: Hand radiographs 11/24/2016 TECHNIQUE: 3 views of the bilateral hands FINDINGS: RIGHT HAND: No fracture or dislocation. Minimal degenerative changes of the distal interphalangeal joints. No cortical erosion. Soft tissues are unremarkable. LEFT HAND: No fracture or dislocation. Minimal degenerative changes of the distal interphalangeal joints. No cortical erosion. Soft tissues are unremarkable. XR/XR hand LT min 3V IMPRESSION: 1. No acute osseous abnormality. 2. Minimal degenerative changes of the distal interphalangeal joints.
--- NOTE | ~2022-09-21 | XR_ITS ---
EXAMINATION: XR hand RT min 3V, XR hand LT min 3V CLINICAL INFORMATION: Pain COMPARISON: Hand radiographs 11/24/2016 TECHNIQUE: 3 views of the bilateral hands FINDINGS: RIGHT HAND: No fracture or dislocation. Minimal degenerative changes of the distal interphalangeal joints. No cortical erosion. Soft tissues are unremarkable. LEFT HAND: No fracture or dislocation. Minimal degenerative changes of the distal interphalangeal joints. No cortical erosion. Soft tissues are unremarkable. XR/XR hand RT min 3V IMPRESSION: 1. No acute osseous abnormality. 2. Minimal degenerative changes of the distal interphalangeal joints.
[2022-09-21 14:04] LABS: Alanine Aminotransferase 38 U/L (0-31); Albumin Level 4.1 g/dL (3.5-5.0); Alkaline Phosphatase 76 U/L (39-117); Anion Gap 13 (12-20); Aspartate Amino Transferase 30 U/L (5-31); Bilirubin Total 0.5 mg/dL (0.0-1.0); Blood Urea Nitrogen 19 mg/dL (9-16); Carbon Dioxide 27 mmol/L (22-29); Chloride 107 mmol/L (96-108); Cholesterol 176 mg/dL; Estimated Glomerular Filt Rate 59; Glucose Fasting 74 mg/dL (60-99); HDL Cholesterol 48 mg/dL; LDL Cholesterol Calculated 107 mg/dl; Potassium 4.2 mmol/L (3.3-5.1); Sodium 143 mmol/L (135-145); TSH reflex Free T4 1.25 uIU/mL (0.32-4.0); Total Protein 6.2 g/dL (6.5-8.0); Triglycerides 105 mg/dL
== END 2022-09-21 08:23 | disposition home or self-care (01) ==
LOC: HO.HMGCX 08:22
PROVIDERS: Absent Provider Nurse Practitioner Family; PCP Nurse Practitioner Family; Visit Provider Nurse Practitioner Family
DX: M79.642 Pain in left hand (principal); M79.641 Pain in right hand; R79.89 Other specified abnormal findings of blood chemistry; E78.5 Hyperlipidemia, unspecified
CPT/HCPCS: 36415; 73130; 80053; 80061; 84443

== ENCOUNTER 2022-10-11 09:00 | Outpatient (RCR) | payer OTHER, SELFPAY ==
--- NOTE | 2022-09-17 09:54 | MHC.OT.EP ---
[address] [phone] Occupational Therapy Plan of Care Date of Evaluation: 09/17/22 Diagnosis: Bilateral hand pain Assessment: 62 yo female with a long ho OA jt pain with worsening with intermittant symptoms of paresthesia. 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 Thank you once again for your referral.
--- NOTE | 2022-10-11 09:50 | MHC.OT.DC ---
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 Pt indep with self management Goals met Electronically Signed By: Karen Tucker OT, CHT, Reviewed/agree with student documentation: Therapist: Please Sign and return to therapist, thank you for your referral.
== END 2022-10-11 09:55 | disposition home or self-care (01) ==
LOC: HO.OT 09:00
PROVIDERS: PCP Internal Medicine; Visit Provider Nurse Practitioner Family
DX: M79.641 Pain in right hand (principal); M79.642 Pain in left hand
CPT/HCPCS: 97018; 97033; 97110; 97140; 97166

== ENCOUNTER → 2022-11-16 09:08 | Outpatient (BNVA) | payer OTHER, SELFPAY | PROVIDERS: PCP Nurse Practitioner Family; Visit Provider Physician Assistant Surgical | DX: E66.9 Obesity, unspecified (principal); E78.5 Hyperlipidemia, unspecified; I10 Essential (primary) hypertension; Z68.35 Body mass index [BMI] 35.0-35.9, adult | CPT/HCPCS: 99202 ==

== ENCOUNTER → 2022-12-15 08:56 | Outpatient (BNVA) | payer OTHER, SELFPAY | PROVIDERS: PCP Nurse Practitioner Family; Visit Provider Dietitian, Registered | DX: E66.9 Obesity, unspecified (principal); K57.92 Diverticulitis of intestine, part unspecified, without perforation or abscess without bleeding; Z68.37 Body mass index [BMI] 37.0-37.9, adult; Z90.49 Acquired absence of other specified parts of digestive tract; Z71.3 Dietary counseling and surveillance | CPT/HCPCS: 97803 ==

== ENCOUNTER 2022-12-24 09:02 | Outpatient (REF) | payer OTHER, SELFPAY ==
[2022-12-24 10:34] LABS: MANUAL DIFF FLAG NO
[2022-12-24 10:43] LABS: Basophils Percent Auto 0.7 % (0-2); Eosinophils Absolute Auto 0.2 X10*3/uL (0.0-0.4); Eosinophils Percent Auto 3.8 % (0-4); Hematocrit 42.1 % (37.0-47.0); Hemoglobin 13.5 g/dl (12.0-16.0); Imm Gran Abs Auto 0.01 X10*3/uL (0.00-0.03); Imm Gran Pct Auto 0.2 % (0.0-0.4); Lymphocytes Absolute Auto 2.2 X10*3/uL (1.2-4.9); Lymphocytes Percent Auto 38.3 % (20-40); Mean Corpuscular HGB Conc 32.1 g/dl (31.0-35.0); Mean Corpuscular Hemoglobin 28.4 pg (27.0-33.0); Mean Corpuscular Volume 88.4 fL (80.0-98.0); Mean Platelet Volume 9.2 fL (9.4-12.3); Monocytes Absolute Auto 0.5 X10*3/uL (0.1-1.2); Monocytes Percent Auto 9.3 % (2-11); Neutrophils Absolute Auto 2.7 x10*3/uL (2.0-8.3); Neutrophils Percent Auto 47.7 % (45-73); Platelet Count 305 X10*3/uL (160-400); Red Blood Count 4.76 X10*6/uL (4.20-5.50); Red Cell Distribution Width 13.1 % (11.0-16.0); White Blood Count 5.7 X10*3/uL (4.8-10.8)
[2022-12-24 10:48] LABS: Appearance Urine Clear; Color Urine Dark Yellow; Glucose Urine UA Negative (Negative); Leukocyte Esterase Urine Small (1+) (Negative); Nitrite Urine Negative (Negative); Specific Gravity - Urine 1.025 (1.005-1.025); UMIC TRIGGER UACC YES; Urine Blood Negative (Negative); Urine Ketones Trace mg/dL (Negative); Urine Protein Trace mg/dL (Neg-Trace)
[2022-12-24 11:03] LABS: Bacteria Urine None Seen (None Seen); Hyaline Casts Urine 0-2 /LPF (0-2); Squamous Epithelial Cell Urine 0-2 /HPF (0-2); UACC Culture Trigger YES; WBC Urine 0-5 /HPF (0-5)
[2022-12-24 11:04] LABS: Alanine Aminotransferase 45 U/L (0-31); Albumin Level 4.1 g/dL (3.5-5.0); Alkaline Phosphatase 72 U/L (39-117); Anion Gap 13 (12-20); Aspartate Amino Transferase 32 U/L (5-31); Bilirubin Total 0.6 mg/dL (0.0-1.0); Blood Urea Nitrogen 23 mg/dL (9-16); Calcium 9.1 mg/dL (8.4-10.2); Carbon Dioxide 28 mmol/L (22-29); Chloride 107 mmol/L (96-108); Cholesterol 167 mg/dL; Estimated Glomerular Filt Rate 49; Glucose Fasting 86 mg/dL (60-99); HDL Cholesterol 51 mg/dL; LDL Cholesterol Calculated 97 mg/dl; Potassium 4.5 mmol/L (3.3-5.1); Sodium 143 mmol/L (135-145); Total Protein 6.1 g/dL (6.5-8.0); Triglycerides 97 mg/dL
[2022-12-24 11:21] LABS: TSH reflex Free T4 0.73 uIU/mL (0.32-4.0)
== END 2022-12-24 09:03 | disposition home or self-care (01) ==
LOC: HO.10HDL 09:02
PROVIDERS: Visit Provider Nurse Practitioner Family
DX: E78.5 Hyperlipidemia, unspecified (principal); R79.89 Other specified abnormal findings of blood chemistry; I10 Essential (primary) hypertension; R82.90 Unspecified abnormal findings in urine
CPT/HCPCS: 36415; 80053; 80061; 81001; 84443; 85025; 87086

== ENCOUNTER 2023-01-04 08:19 | Outpatient (REF) | payer OTHER, SELFPAY ==
[2023-01-04 11:34] LABS: Urine Cytology See Pathology rpt
[2023-01-04 12:14] LABS: Appearance Urine Turbid; Color Urine Yellow; Glucose Urine UA Negative (Negative); Leukocyte Esterase Urine Small (1+) (Negative); Nitrite Urine Negative (Negative); UMIC TRIGGER UACC YES; Urine Blood Negative (Negative); Urine Ketones Trace mg/dL (Negative); Urine Protein Trace mg/dL (Neg-Trace)
[2023-01-04 12:45] LABS: Bacteria Urine None Seen (None Seen); Calcium Oxalate Crystals Urine Present; Hyaline Casts Urine 0-2 /LPF (0-2); Other Crystals Urine Present; RBC Urine 0-2 /HPF (0-2); Squamous Epithelial Cell Urine 0-2 /HPF (0-2); UACC Culture Trigger YES; WBC Urine 0-5 /HPF (0-5)
== END 2023-01-04 08:20 | disposition home or self-care (01) ==
LOC: HO.HMGCLDS 08:19
PROVIDERS: PCP Nurse Practitioner Family; Visit Provider Nurse Practitioner Family
DX: R31.29 Other microscopic hematuria (principal); I10 Essential (primary) hypertension; E78.5 Hyperlipidemia, unspecified; R79.89 Other specified abnormal findings of blood chemistry
CPT/HCPCS: 81001; 81003; 87086; 88112

== ENCOUNTER → 2023-01-13 08:28 | Outpatient (BNVA) | payer OTHER, SELFPAY | PROVIDERS: PCP Nurse Practitioner Family; Visit Provider Dietitian, Registered | DX: E66.9 Obesity, unspecified (principal); Z68.36 Body mass index [BMI] 36.0-36.9, adult | CPT/HCPCS: 97802 ==

== ENCOUNTER → 2023-01-28 08:44 | Outpatient (BNVA) | payer OTHER, SELFPAY | PROVIDERS: PCP Nurse Practitioner Family; Referring Provider Nurse Practitioner Family; Visit Provider Physician Assistant Surgical ==

== ENCOUNTER → 2023-02-11 10:04 | Outpatient (BNVA) | payer OTHER, SELFPAY | PROVIDERS: PCP Nurse Practitioner Family; Visit Provider Physician Assistant Surgical ==

== ENCOUNTER 2023-02-14 09:48 | Outpatient (REF) | payer OTHER, SELFPAY ==
[2023-02-14 11:40] LABS: Amphetamine Screen Urine Not Detected (Not Detect); Barbiturates, Urine Not Detected (Not Detect); Benzodiazepines Screen Urine Not Detected (Not Detect); Cannabinoid Screen Urine Not Detected (Not Detect); Cocaine Screen Urine Not Detected (Not Detect); Fentanyl, urine Not Detected (Not Detect); Opiate Screen Urine Not Detected (Not Detect); Phencyclidine Screen Urine Not Detected (Not Detect)
[2023-02-22 08:51] LABS: Tramadol, Ur SEE COMMENTS
[2023-02-22 08:53] LABS: Desmethyltramadol, Ur SEE COMMENTS
== END 2023-02-14 09:49 | disposition home or self-care (01) ==
LOC: HO.HMGCLDS 09:48
PROVIDERS: PCP Nurse Practitioner Family; Visit Provider Nurse Practitioner Family
DX: Z79.899 Other long term (current) drug therapy (principal)
CPT/HCPCS: 80307; 80373

== ENCOUNTER → 2023-02-18 08:01 | Outpatient (BNVA) | payer OTHER, SELFPAY | PROVIDERS: PCP Nurse Practitioner Family; Visit Provider Nurse Practitioner | DX: E66.9 Obesity, unspecified (principal); Z68.35 Body mass index [BMI] 35.0-35.9, adult | CPT/HCPCS: 99202; 99212 ==

== ENCOUNTER → 2023-02-23 10:46 | Outpatient (BNVA) | payer OTHER, SELFPAY | PROVIDERS: PCP Nurse Practitioner Family; Visit Provider Nurse Practitioner Family | DX: M47.816 Spondylosis without myelopathy or radiculopathy, lumbar region (principal); M54.32 Sciatica, left side; Z79.891 Long term (current) use of opiate analgesic | CPT/HCPCS: 99212 ==

== ENCOUNTER 2023-03-01 11:03 | Outpatient (REF) | payer OTHER, SELFPAY ==
[2023-03-01 16:55] LABS: Urine Cytology See Pathology rpt
== END 2023-03-01 11:04 | disposition home or self-care (01) ==
LOC: HO.LNP 11:03
PROVIDERS: PCP Nurse Practitioner Family; Visit Provider Nurse Practitioner Family
DX: R31.29 Other microscopic hematuria (principal)
CPT/HCPCS: 88112; 99202

== ENCOUNTER → 2023-03-04 08:30 | Outpatient (BNVA) | payer OTHER, SELFPAY | PROVIDERS: PCP Nurse Practitioner Family; Referring Provider Nurse Practitioner Family; Visit Provider Physician Assistant Surgical ==

== ENCOUNTER 2023-03-22 08:30 | Outpatient (REF) | payer OTHER, SELFPAY ==
[2023-03-22 09:47] LABS: Blood Urea Nitrogen 34 mg/dL (9-16); Estimated Glomerular Filt Rate 43
== END 2023-03-22 08:31 | disposition home or self-care (01) ==
LOC: HO.LAB 08:30
PROVIDERS: PCP Nurse Practitioner Family; Visit Provider Nurse Practitioner Family
DX: R39.15 Urgency of urination (principal)
CPT/HCPCS: 36415; 82565; 84520

== ENCOUNTER 2023-03-29 08:53 | Outpatient (REF) | payer OTHER, SELFPAY ==
--- NOTE | ~2023-03-29 | CT_ITS ---
EXAMINATION: CT ABDOMEN AND PELVIS WITHOUT AND WITH CONTRAST CLINICAL INFORMATION: Microscopic hematuria COMPARISON: 04/22/2022 CT abdomen pelvis TECHNIQUE: Noncontrast CT of the abdomen and pelvis is performed followed by split bolus contrast-enhanced images using 85 mL Omnipaque 350 contrast.? Postcontrast imaging is performed during the combined nephrogram and excretion phase. Sagittal and coronal reformatted images were obtained on the technologist's workstation for both the precontrast and postcontrast phases. This CT examination was performed using dose optimization techniques as appropriate, variously including the following: *Automated exposure control *Adjustment of mA and/or kV according to patient size (this includes techniques or standardized protocols for targeted exams where dose is matched to indication/reason for exam; i.e. extremities or head) *Use of iterative reconstruction technique DLP: 1185 mGy-cm FINDINGS: LUNG BASES: Unremarkable. ABDOMINAL AND PELVIC WALL: Partially imaged right macroscopic fat-containing intramuscular lipoma in the abdominal wall musculature. LIVER AND BILIARY TREE: Unremarkable. GALLBLADDER: Status post cholecystectomy. PANCREAS: Unremarkable. SPLEEN: Unremarkable. ADRENAL GLANDS: Unremarkable. KIDNEYS AND URETERS: No hydronephrosis nephrolithiasis. No intraluminal filling defects seen along the opacified portions of the ureters. No suspicious renal mass. GASTROINTESTINAL TRACT: Duodenal diverticulum. Small hiatal hernia. Colonic diverticulosis without evidence of diverticulitis. Appendicoliths within an otherwise normal appendix. VASCULAR: Unremarkable. LYMPH NODES/PERITONEUM: No lymphadenopathy. FREE FLUID: None. BLADDER: Unremarkable. PELVIC VISCERA: Status post hysterectomy. OSSEOUS STRUCTURES: Multilevel degenerative disc disease. CT/CT urogram IMPRESSION: No findings to explain symptoms of hematuria.
[2023-03-29] MEDS: iohexoL 350 MG/ML 100 ML INFUS..BTL 85 ML IV (10:10)
== END 2023-03-29 08:54 | disposition home or self-care (01) ==
LOC: HO.CT 08:53
PROVIDERS: PCP Nurse Practitioner Family; Visit Provider Nurse Practitioner Family
DX: R31.29 Other microscopic hematuria (principal)
CPT/HCPCS: 74178; Q9967

== ENCOUNTER → 2023-04-01 08:36 | Outpatient (BNVA) | payer OTHER, SELFPAY | PROVIDERS: PCP Nurse Practitioner Family; Visit Provider Physician Assistant Surgical | DX: R31.29 Other microscopic hematuria (principal); Z87.891 Personal history of nicotine dependence | CPT/HCPCS: 52000 ==

== ENCOUNTER → 2023-04-14 08:24 | Outpatient (BNVA) | payer OTHER, SELFPAY | PROVIDERS: PCP Internal Medicine; Visit Provider Physician Assistant ==

== ENCOUNTER → 2023-05-06 08:03 | Outpatient (BNVA) | payer OTHER, SELFPAY | PROVIDERS: PCP Internal Medicine; Visit Provider Physician Assistant ==

== ENCOUNTER 2023-05-11 09:18 | Outpatient (AMB) | payer OTHER, SELFPAY ==
--- NOTE | 2023-05-11 09:28 | A.OFFVIS_ITS ---
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 Allergies lactose Allergy (Unknown, Verified 05/11/23 09:37) lactose intolerant GI upset sulfamethoxazole Allergy (Unknown, Verified 05/11/23 09:37) vomiting tizanidine Allergy (Verified 05/11/23 09:37) Vomiting Medication List - Last Reconciled 05/11/23 by BRENDA Cooley acetaminophen (Tylenol Extra Strength) 1,000 mg PO Q6H PRN albuterol sulfate 90 mcg/actuation 2 puffs inhalation Q4-6H PRN bupropion HCl 300 mg PO QAM calcium carbonate (Calcium) 600 mg PO BID 90 days cholecalciferol (vitamin D3) 25 mcg PO DAILY 90 days coenzyme Q10 100 mg PO DAILY cyclobenzaprine 10 mg PO DAILY PRN cyclosporine 0.05% 1 drp ophthalmic (eye) BID diclofenac potassium 50 mg PO BID PRN 60 days docusate sodium (Colace) 100 mg PO BID fluticasone propion-salmeterol 500-50 mcg/dose (Wixela Inhub) 1 ea PO BID gabapentin 1,200 mg (2 x 600 mg) PO DAILY 60 days levothyroxine 137 mcg PO QAM loratadine 10 mg PO DAILY losartan 100 mg PO DAILY 90 days lutein 40 mg PO DAILY magnesium 250 mg PO DAILY metronidazole 1% 1 appl topical DAILY 30 days montelukast 10 mg PO DAILY 90 days multivitamin 1 tab PO DAILY rosuvastatin 20 mg PO BEDTIME 90 days sennosides (senna) 17.2 mg (2 x 8.6 mg) PO BEDTIME 30 days sumatriptan succinate (Imitrex) 25 mg PO Q2-4H PRN tiotropium bromide (Spiriva with HandiHaler) 1 cap inhalation DAILY tramadol 50 mg PO DAILY PRN vit C-E-zinc nu-efaf-oid-zeax 250 mg-200 unit -12.5 mg-1 mg (ICaps AREDS2) caps PO HPI HPI Comments History of Present Illness Details Pt presents in followup for [facility], visit #4. Starting weight: 203 Weight at last visit: 201 Weight today: 199.4 Total weight change since starting program: -3.6 Current meal plan: Pure protein shake, 1 scoop of powder (25g protein) with a small amount of coffee, greens powder, collagen (9g protein) and metamucil Snack of Clementines Pure Protein bar 3pm - rice cakes with peanut butter- tried powdered PB mixed with a very small amount of regular PB to give creaminess Dinner 3 eggs, 1 slice of white bread, or omelet with cheese/ham/veggies, or bunless burder with a salad or chicken on salad, sometimes has pizza but will only have one piece sometimes will have a regular lowfat yogurt with blueberries and a small amount of granola sometimes has a fudgesicle after dinner notes that sometimes when she had success with weight loss she would have a reward of food continues to have issues with sciatic pain and muscle spasms in her back planning to go to [place] to visit daughter next month Exercise: started exercise 02/07, Kandis Rose, 1 mile today but tries to do almost daily?- 2 miles usually PFSH Medical History Acute diverticulitis Asthma COPD (chronic obstructive pulmonary disease) Depression Diverticular disease Dyslipidemia Fibromyalgia HTN (hypertension) Hypothyroid Lumbar spondylosis Macular degeneration Seborrheic keratosis Surgical History H/O breast biopsy History of colonoscopy History of hysterectomy History of knee replacement procedure of left knee History of knee replacement procedure of right knee History of surgery Hx laparoscopic cholecystectomy Family History Father Unknown family medical history Mother Unknown family medical history Social History Household Members: Spouse Housing: House Do you presently have visiting nurse or other home services: No Alcohol intake: never Patient Tobacco Use Status: Never used Tobacco e-Cigarette/Vaping Use: Never Used Second Hand Smoke Exposure: No Advance Directives Date on File: 01/08/22 service: No Current occupational status: disabled Cognitive needs: No Hearing needs: No Vision needs: No Assessment & Plan Assessment & Plan (1) Obesity: Code(s): E66.9 - Obesity, unspecified Plan We did discuss making sure protein daily goal is 80-85g/day; she has been getting over 100g some days. She has a goal of losing 12 lbs by end of June so we discussed changes to her meal plan to help- minimize simple carbs, no toast with eggs, swap rice cakes for yogurt, etc. Gave food list with fruits/veg suggestions. Pt will work on increasing exercise again after recovering from illness. RTC 2 months for ongoing followup. Patient is obese and is not considered stable at this time. I spent a total of 30 minutes reviewing/updating records, examining the patient and counseling the patient on weight management as detailed above. Coding Level of Care Code Est Pt Level 4 (91489) Diagnoses Obesity E66.9
[2023-05-11 09:36] VITALS: BP 147/72; PULSE 90; TEMP 36.6; O2SAT 98; BMI 34.8
== END 2023-05-11 10:01 | disposition home or self-care (01) ==
PROVIDERS: PCP Internal Medicine; Visit Provider Physician Assistant Surgical
DX: E66.9 Obesity, unspecified (principal)
CPT/HCPCS: 99214

== ENCOUNTER → 2023-05-11 09:18 | Outpatient (BNVA) | payer OTHER, SELFPAY | PROVIDERS: PCP Internal Medicine; Visit Provider Physician Assistant Surgical | DX: E66.9 Obesity, unspecified (principal); Z68.34 Body mass index [BMI] 34.0-34.9, adult | CPT/HCPCS: 99212 ==

== ENCOUNTER → 2023-05-20 08:32 | Outpatient (BNVA) | payer OTHER, SELFPAY | PROVIDERS: PCP Internal Medicine; Visit Provider Physician Assistant ==

== ENCOUNTER → 2023-05-27 09:08 | Outpatient (BNVA) | payer OTHER, SELFPAY | PROVIDERS: PCP Internal Medicine; Visit Provider Physician Assistant ==

== ENCOUNTER 2023-05-27 09:53 | Outpatient (AMB) | payer OTHER, SELFPAY ==
--- NOTE | 2023-05-27 10:06 | MHC.OFFWIV ---
Intake Vital Signs 05/27/23 10:11 Height 5 ft 4 in Weight 97 lb 2 oz BMI 16.7 Pulse 89 Pulse Source Pulse Oximeter Temp 97.2 F Temp Source Temporal Artery Scan Pulse Oximetry (%) 95 Oxygen Delivery Method Room Air Intake Visit Reasons: EP, UTI? Intake Note: Pt is here c/o burning sensation when urinating. Patient Tobacco Use Status: Never used Tobacco Allergies lactose Allergy (Unknown, Verified 05/27/23 10:06) lactose intolerant GI upset sulfamethoxazole Allergy (Unknown, Verified 05/27/23 10:06) vomiting tizanidine Allergy (Verified 05/27/23 10:06) Vomiting Do you need a note to return to daycare/school/sports/work: No HPI HPI Comments History of Present Illness Details This is a 63-year-old female who presents to the office today for sick visit. Patient complaining of dysuria and increased urinary frequency/urgency x2 days. She denies any fevers or chills. She reports some mild lower abdominal pressure but no abdominal pain. She denies any nausea/vomiting/diarrhea. She denies any flank/back pain. She is otherwise feeling well. [facility] Medical History Acute diverticulitis Asthma COPD (chronic obstructive pulmonary disease) Depression Diverticular disease Dyslipidemia Fibromyalgia HTN (hypertension) Hypothyroid Lumbar spondylosis Macular degeneration Seborrheic keratosis Surgical History H/O breast biopsy History of colonoscopy History of hysterectomy History of knee replacement procedure of left knee History of knee replacement procedure of right knee History of surgery Hx laparoscopic cholecystectomy Family History Father Unknown family medical history Mother Unknown family medical history Social History Household Members: Spouse Housing: House Do you presently have visiting nurse or other home services: No Alcohol intake: never Patient Tobacco Use Status: Never used Tobacco e-Cigarette/Vaping Use: Never Used Second Hand Smoke Exposure: No Advance Directives Date on File: 01/08/22 service: No Current occupational status: disabled Cognitive needs: No Hearing needs: No Vision needs: No Review of Systems Const All systems reviewed & are unremarkable except as noted in HPI and below Reports no additional complaints Eyes Reports no additional complaints ENT Reports no additional complaints Card Reports no additional complaints Resp Reports no additional complaints GI Reports no additional complaints Reports no additional complaints Musc Reports no additional complaints Skin/Breast Reports system reviewed and no additional complaints, except as documented Neuro Reports no additional complaints Psych Reports no additional complaints Endo Reports no additional complaints Alan/Lymph Reports no additional complaints Aller/Immun Reports no additional complaints Physical Exam Vital Signs: Last Vital Signs Temp 97.2 F 05/27/23 10:11 Pulse 89 05/27/23 10:11 Pulse Ox 95 05/27/23 10:11 Oxygen Delivery Method Room Air 05/27/23 10:11 BMI result Body Mass Index 16.7 Const General: cooperative, healthy appearing, no acute distress and well developed Orientation/consciousness: patient oriented x3 HEENT Head: Yes normal to inspection Ears: hearing grossly normal bilaterally General nose exam: Normal external nose present Face and sinus: Yes normal facial exam Mouth: Normal oral and palatal mucosa present Eyes General: appearance normal, both eyes and all related structures Pupils: Equal, round and reactive pupils present EOM: EOMs intact bilaterally Resp Effort & Inspection: normal respiratory effort and no respiratory distress Auscultation: clear to auscultation bilaterally Cardio Rate: regular rate Rhythm: regular rhythm Heart sounds: no gallops, no murmurs and no rubs Peripheral pulses: Peripheral pulses 2+ throughout GI Inspection: No distended Palpation (GI): Soft to palpation and nontender Auscultation: normal bowel sounds General: Yes no CVA tenderness Back/Spine/Pelvis Back: no CVA tenderness Skin General skin exam: no rashes or lesions noted Neuro General: patient oriented x3 Cranial nerves: Yes CN's II-XII intact bilaterally and Yes Equal, round and reactive pupils present Gait exam (Neuro): Normal gait present Motor exam (neuro): 5/5 motor strength present throughout Extrem General: Yes normal to inspection, Yes full ROM and Yes no clubbing, cyanosis or edema Psych Appearance: grossly normal Mental Status: mental status grossly normal Results AMB Urinalysis, Automated UA Leukoctes 500 Darling/uL Last Edit by Rebekah Gottlieb CMA on 05/27/23 10:24 UA Nitrite Negative Last Edit by Rebekah Gottlieb CMA on 05/27/23 10:24 UA Urobilinogen 0.2 mg/dL Last Edit by Rebekah Gottlieb CMA on 05/27/23 10:24 UA Protein 300 mg/dL Last Edit by Rebekah Gottlieb, AUDELIA on 05/27/23 10:24 UA pH 6.0 Last Edit by Rebekah Gottlieb, AUDELIA on 05/27/23 10:24 UA Blood 200 Osvaldo/uL Last Edit by Rebekah Gottlieb, AUDELIA on 05/27/23 10:24 UA Specific Pomeroy 1.030 Last Edit by Rebekah Gottlieb, AUDELIA on 05/27/23 10:24 UA Ketone Last Edit by Rebekah Gottlieb, AUDELIA on 05/27/23 10:24 UA Bilirubin mg/dL Last Edit by Rebekah Gottlieb, AUDELIA on 05/27/23 10:24 UA Glucose mg/dL Last Edit by Rebekah Gottlieb CMA on 05/27/23 10:24 Assessment & Plan Assessment & Plan (1) UTI (urinary tract infection): Code(s): N39.0 - Urinary tract infection, site not specified Plan: This is a 63 year male presenting to the office today complaining of urinary symptoms. Urinalysis shows positive leukocyte esterase, consistent with a urinary tract infection. Her vital signs are stable patient is overall well-appearing. She denies any flank/back pain she has no CVA tenderness. Low concern for pyelonephritis or systemic infection at this time. Patient sent home on p.o. cefuroxime 500 mg twice daily x7 days and PO phenazopyridine 3 times daily as needed x3 days. Patient was advised to follow-up here or proceed directly to the emergency room if he were to develop persistent/worsening symptoms, fever/chills, flank/back pain, or systemic symptoms. Patient verbalizes her understanding and she is agreeable with plan. Orders: Orders AMB Urinalysis Automated Today Z13.9 - Encounter for screening, unspecified Medications: New cefuroxime axetil 500 mg PO BID 14 tabs 0RF phenazopyridine 200 mg PO TID PRN 9 tabs 0RF pain Coding Level of Care Code Est Pt Level 3 (20135) Diagnoses UTI (urinary tract infection) N39.0
[2023-05-27 10:11] VITALS: PULSE 89; TEMP 36.2; O2SAT 95; BMI 16.7
== END 2023-05-27 10:40 | disposition home or self-care (01) ==
PROVIDERS: PCP Internal Medicine; Visit Provider Physician Assistant Medical
DX: R30.0 Dysuria (principal); N39.0 Urinary tract infection, site not specified
CPT/HCPCS: 81003; 99213

== ENCOUNTER → 2023-06-02 08:18 | Outpatient (BNVA) | payer OTHER, SELFPAY | PROVIDERS: PCP Internal Medicine; Visit Provider Physician Assistant Surgical ==

== ENCOUNTER → 2023-06-10 07:56 | Outpatient (BNVA) | payer OTHER, SELFPAY | PROVIDERS: PCP Internal Medicine; Visit Provider Physician Assistant Surgical ==

== ENCOUNTER 2023-06-16 07:00 | Outpatient (RCR) | payer OTHER, SELFPAY ==
--- NOTE | 2023-06-16 08:45 | MHC.PT.DC ---
[facility] [place] Office [place] Office [place] Office [address] Williams Scott [address] [phone] F: [phone] F: [phone] F: [phone] F: [phone] Physical Therapy Discharge Report Diagnosis: LEFT SCIATICA Date of Surgery: Date of Evaluation: 04/14/23 Date of Discharge: 06/16/23 Treatments to Date: 8 Cancellations to Date: 5 No Shows to Date: 0 Discharge Status: Achieved Goals Improved Function Independent with HEP Discharge Summary: THE Pt PRESENTED W (+) PELVIC ASYMMETRY CREATING INCR LAT WT SHIFT ; SHE IS DISPLAYING IMPROVED FUNCT MOB RENÉE AND GREATER QUALITY OF MVMT W OVERALL REDUCED PAIN- SHE HAS IMPROVED AWARENESS OF HABITUAL GENU VALGUS COLLAPSE-> ALTHOUGH SHE HAS WEAKNESS IN HER LEFT HIP GIRDLE, CORRINA HAS MET THE MAJORITY OF HER PT GOALS AND SHE IS INDEP WITH HER HEP AND SELF- SX MANAGEMENT STRATEGIES. WE HAVE REVIEWED HER HEP PROGRESSION AND REINFORCED THE IMPORTANCE OF HEP CONTINUITY HER SXS RESOLVE. SHE IS READY FOR D/C FROM PT AT THIS TIME. Electronically signed by: JOSY ASCENCIO,PT Please sign and return to therapist. Thank you for your referral.
== END 2023-06-16 08:47 | disposition home or self-care (01) ==
LOC: HO.PT 07:00
PROVIDERS: PCP Internal Medicine; Visit Provider Internal Medicine Rheumatology
DX: M54.30 Sciatica, unspecified side (principal)
CPT/HCPCS: 97110; 97161

== ENCOUNTER → 2023-06-16 08:12 | Outpatient (BNVA) | payer OTHER, SELFPAY | PROVIDERS: PCP Internal Medicine; Visit Provider Physician Assistant Surgical ==

== ENCOUNTER → 2023-06-23 07:54 | Outpatient (BNVA) | payer OTHER, SELFPAY | PROVIDERS: PCP Internal Medicine; Visit Provider Physician Assistant Surgical ==

== ENCOUNTER 2023-06-24 | Outpatient (REF) | payer OTHER, SELFPAY ==
[2023-06-24 12:56] LABS: Estimated Average Glucose 97 mg/dL
[2023-06-24 12:57] LABS: Glucose Random 80 mg/dL (60-115)
== END 2023-06-24 00:01 | disposition home or self-care (01) ==
LOC: HO.LAB
PROVIDERS: PCP Nurse Practitioner Family; Visit Provider Physician Assistant Surgical
DX: E66.9 Obesity, unspecified (principal); Z98.84 Bariatric surgery status
CPT/HCPCS: 36415; 82947; 83036; 99453

== ENCOUNTER 2023-06-24 12:00 | Outpatient (AMB) | payer OTHER, SELFPAY ==
--- NOTE | 2023-06-24 15:50 | HO.OFFWMMET ---
Intake Intake Visit Reasons: (OV) [facility] clinic Sap Director Required: No Allergies lactose Allergy (Unknown, Verified 05/27/23 10:06) lactose intolerant GI upset sulfamethoxazole Allergy (Unknown, Verified 05/27/23 10:06) vomiting tizanidine Allergy (Verified 05/27/23 10:06) Vomiting Medication List - Last Reconciled 06/24/23 by BRENDA Hughes acetaminophen (Tylenol Extra Strength) 1,000 mg PO Q6H PRN albuterol sulfate 90 mcg/actuation 2 puffs inhalation Q4-6H PRN bupropion HCl 300 mg PO QAM calcium carbonate (Calcium) 600 mg PO BID 90 days cefuroxime axetil 500 mg PO BID cholecalciferol (vitamin D3) 25 mcg PO DAILY 90 days coenzyme Q10 100 mg PO DAILY cyclobenzaprine 10 mg PO DAILY PRN cyclosporine 0.05% 1 drp ophthalmic (eye) BID diclofenac potassium 50 mg PO BID PRN 60 days docusate sodium (Colace) 100 mg PO BID fluticasone propion-salmeterol 500-50 mcg/dose (Wixela Inhub) 1 ea PO BID gabapentin 1,200 mg (2 x 600 mg) PO DAILY 60 days levothyroxine 137 mcg PO QAM loratadine 10 mg PO DAILY losartan 100 mg PO DAILY 90 days lutein 40 mg PO DAILY magnesium 250 mg PO DAILY metronidazole 1% 1 appl topical DAILY 30 days montelukast 10 mg PO DAILY 90 days multivitamin 1 tab PO DAILY phenazopyridine 200 mg PO TID PRN rosuvastatin 20 mg PO BEDTIME 90 days sennosides (senna) 17.2 mg (2 x 8.6 mg) PO BEDTIME 30 days sumatriptan succinate (Imitrex) 25 mg PO Q2-4H PRN tiotropium bromide (Spiriva with HandiHaler) 1 cap inhalation DAILY tramadol 50 mg PO DAILY PRN vit C-E-zinc vp-wppq-tmk-zeax 250 mg-200 unit -12.5 mg-1 mg (ICaps AREDS2) caps PO HPI HPI Comments History of Present Illness Details 63 yo female who was in our [facility] clinic presented for metabolic clinic w dx HTN She watched the presentation and after discussing w melissa Oneill to stay [facility] Medical History Diverticular disease Acute diverticulitis Macular degeneration Seborrheic keratosis Dyslipidemia Depression Asthma COPD (chronic obstructive pulmonary disease) HTN (hypertension) Hypothyroid Fibromyalgia Lumbar spondylosis Surgical History Hx laparoscopic cholecystectomy History of surgery H/O breast biopsy History of colonoscopy History of hysterectomy History of knee replacement procedure of right knee History of knee replacement procedure of left knee Family History Father Unknown family medical history Mother Unknown family medical history Social History Household Members: Spouse Housing: House Do you presently have visiting nurse or other home services: No Alcohol intake: never Patient Tobacco Use Status: Never used Tobacco e-Cigarette/Vaping Use: Never Used Second Hand Smoke Exposure: No Advance Directives Date on File: 01/08/22 service: No Current occupational status: disabled Cognitive needs: No Hearing needs: No Vision needs: No Assessment & Plan Assessment & Plan (1) Obesity: Code(s): E66.9 - Obesity, unspecified Plan: She states she will be going away for two weeks and will return to start with a new gropup when she returns. She was given body composition scale and BP cuff. Will go over Syndevrx jacquelyn upon her return Orders: Orders Hemoglobin A1c Today E66.9 - Obesity, unspecified Glucose Random Today E66.9 - Obesity, unspecified Coding Level of Care Code [address] [facility] Intital [facility] Diagnoses Obesity E66.9
== END 2023-06-24 15:53 | disposition home or self-care (01) ==
LOC: HO.META 12:59
PROVIDERS: PCP Nurse Practitioner Family; Visit Provider Physician Assistant Surgical
DX: E66.9 Obesity, unspecified (principal)

== ENCOUNTER 2023-07-11 08:29 | Outpatient (AMB) | payer OTHER, SELFPAY ==
[2023-07-11 08:37] VITALS: BP 150/96; PULSE 63; O2SAT 99; BMI 33.7
--- NOTE | 2023-07-11 08:37 | MHC.PC.OV ---
Vital Signs 07/11/23 08:37 Height 5 ft 3.5 in Weight 193 lb 6 oz BMI 33.7 BP 150/96 H Blood Pressure Location Rt brachial Position Sitting Pulse 63 Pulse Source Pulse Oximeter Pulse Oximetry (%) 99 Oxygen Delivery Method Room Air Intake Visit Reasons: 6 month Follow up HTN Intake Note: pt has her mammo in 2 weeks Allergies lactose Allergy (Unknown, Verified 07/11/23 08:41) lactose intolerant GI upset sulfamethoxazole Allergy (Unknown, Verified 07/11/23 08:41) vomiting tizanidine Allergy (Verified 07/11/23 08:41) Vomiting Medication List - Last Reconciled 07/11/23 by Marcos Rocha, [employer]- acetaminophen (Tylenol Extra Strength) 1,000 mg PO Q6H PRN albuterol sulfate 90 mcg/actuation 2 puffs inhalation Q4-6H PRN bupropion HCl 300 mg PO QAM calcium carbonate (Calcium) 600 mg PO BID 90 days cholecalciferol (vitamin D3) 25 mcg PO DAILY 90 days coenzyme Q10 100 mg PO DAILY cyclobenzaprine 10 mg PO DAILY PRN cyclosporine 0.05% 1 drp ophthalmic (eye) BID diclofenac potassium 50 mg PO BID PRN 60 days docusate sodium (Colace) 100 mg PO BID fluticasone propion-salmeterol 500-50 mcg/dose (Wixela Inhub) 1 ea PO BID gabapentin 1,200 mg (2 x 600 mg) PO DAILY 60 days levothyroxine 137 mcg PO QAM loratadine 10 mg PO DAILY losartan-hydrochlorothiazide 100-12.5 mg 1 tab PO DAILY lutein 40 mg PO DAILY magnesium 250 mg PO DAILY metoprolol succinate ER 12.5 mg (1/2 x 25 mg) PO DAILY 90 days metronidazole 1% 1 appl topical DAILY 30 days montelukast 10 mg PO DAILY 90 days multivitamin 1 tab PO DAILY rosuvastatin 20 mg PO BEDTIME 90 days sennosides (senna) 17.2 mg (2 x 8.6 mg) PO BEDTIME 30 days sumatriptan succinate (Imitrex) 25 mg PO Q2-4H PRN tiotropium bromide (Spiriva with HandiHaler) 1 cap inhalation DAILY tramadol 50 mg PO DAILY PRN vit C-E-zinc rh-lqgk-mjt-zeax 250 mg-200 unit -12.5 mg-1 mg (ICaps AREDS2) caps PO Tobacco use date assessed: 07/11/23 Fall risk assessment: No Falls in past year Last assessed Fall Risk: 07/11/23 Dental Screening Dental Screen Date: 07/11/23 Did you have a dental visit in the last 12 months?: Yes Did you have a dental problem in the last 6 months where you did not have access to dental care?: No Was dental information given to patient?: Patient has dentist HPI 6 month Follow up HTN HPI Details HTN: Blood pressure is elevated, managed with losartan 100mg. Pt reports that her blood pressure has been elevated at home, in the 90s diastolically. Will add hydrochlorothiazide 12.5mg (switching to combo med) and metoprolol 12.5mg. Pt will continue to monitor her blood pressure at home. Denies chest pain, shortness of breath, headache, dizziness, and blurred vision. Pt has been actually losing weight PFSH Medical History Diverticular disease Acute diverticulitis Macular degeneration Seborrheic keratosis Dyslipidemia Depression Asthma COPD (chronic obstructive pulmonary disease) HTN (hypertension) Hypothyroid Fibromyalgia Lumbar spondylosis Surgical History Hx laparoscopic cholecystectomy History of surgery H/O breast biopsy History of colonoscopy History of hysterectomy History of knee replacement procedure of right knee History of knee replacement procedure of left knee Family History Father Unknown family medical history Mother Unknown family medical history Social History Household Members: Spouse Housing: House Do you presently have visiting nurse or other home services: No Alcohol intake: never Patient Tobacco Use Status: Never used Tobacco e-Cigarette/Vaping Use: Never Used Second Hand Smoke Exposure: No Advance Directives Date on File: 01/08/22 service: No Current occupational status: disabled Cognitive needs: No Hearing needs: No Vision needs: No Questionnaire Thrive Questionnaire Date Thrive assessed: 01/04/23 MCKENNA-7 AMB Questionnaire MCKENNA-7 Date MCKENNA - 7 assessed: 01/04/23 Source: Developed by Drs. Chadwick Scott, Lindsay Bender, Elliot Cox and colleagues, with an educational lucero from [employer]. Review of Systems Const Reports as per HPI Physical exam (Primary Care) Vital Signs: Last Vital Signs Pulse 63 07/11/23 08:37 BP 150/96 H 07/11/23 08:37 Pulse Ox 99 07/11/23 08:37 Oxygen Delivery Method Room Air 07/11/23 08:37 BMI result Body Mass Index 33.7 Tobacco/Smoking Status: Tobacco use Status Tobacco use date assessed 07/11/23 07/11/23 08:45 Patient Tobacco Use Status Never used Tobacco 07/11/23 08:45 e-Cigarette/Vaping Use Never Used 07/11/23 08:45 Thrive Assessment: Date of Thrive Assessment Date Thrive assessed 01/04/23 07/11/23 08:45 Const General: cooperative Orientation/consciousness: patient oriented x3 Resp Effort & Inspection: normal respiratory effort Auscultation: clear to auscultation bilaterally Cardio Rate: regular rate Rhythm: regular rhythm Heart sounds: S1 normal heart sound present and S2 normal heart sound present Neuro General: patient oriented x3 Extrem Right lower extremity: edema (trace) Left lower extremity: edema (trace) Psych Appearance: grossly normal Mental Status: mental status grossly normal Speech and movement: Normal speech and movement present Affect: normal affect Attitude: cooperative Thought process: Normal thought process present Thought content: Normal thought content present Insight: Good insight present (Psych) Judgement: Good judgement present (Psych) Assessment and Plan Assessment & Plan (1) HTN (hypertension): Code(s): I10 - Essential (primary) hypertension Plan: Adding hctz and metoprolol, continue to monitor BP at home, labs ordered Plan The patient agreed to the use of a medical dermatologist for this encounter. Scribed for JOEL Cruz by Shelbi Mendoza medical dermatologist, on 07/11/2023 at 08:50 EST Orders: Orders Complete Blood Count Auto Diff Today I10 - Essential (primary) hypertension Comprehensive [place]. Panel Fast Today I10 - Essential (primary) hypertension TSH reflex Free T4 Today I10 - Essential (primary) hypertension UA CC w/rflx Micro + Cult Today I10 - Essential (primary) hypertension Lipid Panel Today I10 - Essential (primary) hypertension Medications: New losartan-hydrochlorothiazide 100-12.5 mg 1 tab PO DAILY 90 tabs 0RF metoprolol succinate ER 12.5 mg (1/2 x 25 mg) PO DAILY 45 tabs 0RF 90 days Discontinued losartan Discontinued Reason: Duplicate 100 mg PO DAILY 90 days 90 tabs 1RF Coding Level of Care Code Est Pt Level 3 (07232) Diagnoses HTN (hypertension) I10
== END 2023-07-11 09:13 | disposition home or self-care (01) ==
PROVIDERS: Visit Provider Nurse Practitioner Family
DX: I10 Essential (primary) hypertension (principal)
CPT/HCPCS: 99213

== ENCOUNTER 2023-07-27 07:49 | Outpatient (REF) | payer OTHER, SELFPAY ==
[2023-07-27 08:07] LABS: MANUAL DIFF FLAG NO
[2023-07-27 09:29] LABS: Appearance Urine Clear; Color Urine Yellow; Glucose Urine UA Negative (Negative); Leukocyte Esterase Urine Small (1+) (Negative); Nitrite Urine Negative (Negative); UMIC TRIGGER UACC YES; Urine Blood Negative (Negative); Urine Ketones Negative (Negative); Urine Protein Negative (Neg-Trace)
[2023-07-27 09:31] LABS: Basophils Percent Auto 0.3 % (0-2); Hematocrit 39.7 % (37.0-47.0); Hemoglobin 12.9 g/dl (12.0-16.0); Imm Gran Abs Auto 0.07 X10*3/uL (0.00-0.03); Imm Gran Pct Auto 0.6 % (0.0-0.4); Lymphocytes Absolute Auto 2.3 X10*3/uL (1.2-4.9); Lymphocytes Percent Auto 19.9 % (20-40); Mean Corpuscular HGB Conc 32.5 g/dl (31.0-35.0); Mean Corpuscular Hemoglobin 29.2 pg (27.0-33.0); Mean Corpuscular Volume 89.8 fL (80.0-98.0); Mean Platelet Volume 9.4 fL (9.4-12.3); Monocytes Absolute Auto 0.7 X10*3/uL (0.1-1.2); Monocytes Percent Auto 5.9 % (2-11); Neutrophils Absolute Auto 8.5 x10*3/uL (2.0-8.3); Neutrophils Percent Auto 73.3 % (45-73); Platelet Count 353 X10*3/uL (160-400); Red Blood Count 4.42 X10*6/uL (4.20-5.50); White Blood Count 11.5 X10*3/uL (4.8-10.8)
[2023-07-27 10:03] LABS: Bacteria Urine None Seen (None Seen); Hyaline Casts Urine 0-2 /LPF (0-2); RBC Urine 0-2 /HPF (0-2); Squamous Epithelial Cell Urine 0-2 /HPF (0-2); UACC Culture Trigger YES; WBC Urine 0-5 /HPF (0-5)
[2023-07-27 10:24] LABS: Alanine Aminotransferase 33 U/L (0-31); Albumin Level 4.1 g/dL (3.5-5.0); Alkaline Phosphatase 61 U/L (39-117); Anion Gap 12 (12-20); Aspartate Amino Transferase 23 U/L (5-31); Bilirubin Total 0.3 mg/dL (0.0-1.0); Blood Urea Nitrogen 26 mg/dL (9-16); Calcium 9.4 mg/dL (8.4-10.2); Carbon Dioxide 30 mmol/L (22-29); Chloride 103 mmol/L (96-108); Cholesterol 144 mg/dL (<200); Estimated Glomerular Filt Rate 59; Glucose Fasting 81 mg/dL (60-99); HDL Cholesterol 44 mg/dL (>40); LDL Cholesterol Calculated 86 mg/dL (<100); Potassium 3.6 mmol/L (3.3-5.1); Sodium 141 mmol/L (135-145); Total Protein 6.4 g/dL (6.5-8.0); Triglycerides 73 mg/dL (<150)
[2023-07-27 10:28] LABS: TSH reflex Free T4 0.11 uIU/mL (0.32-4.0)
[2023-07-27 11:20] LABS: Free T4 (Free Thyroxine) 1.26 ng/dL (0.71-1.85)
== END 2023-07-27 07:50 | disposition home or self-care (01) ==
LOC: HO.LAB 07:49
PROVIDERS: PCP Nurse Practitioner Family; Visit Provider Nurse Practitioner Family
DX: I10 Essential (primary) hypertension (principal); R82.90 Unspecified abnormal findings in urine
CPT/HCPCS: 36415; 80053; 80061; 81001; 84439; 84443; 85025; 87086

== ENCOUNTER → 2023-08-17 08:15 | Outpatient (BNVA) | payer OTHER, SELFPAY | PROVIDERS: PCP Nurse Practitioner Family; Visit Provider Physician Assistant Surgical ==

== ENCOUNTER 2023-08-19 07:29 | Outpatient (AMB) | payer OTHER, SELFPAY ==
--- NOTE | 2023-08-19 07:32 | MHC.OFFVIS ---
Intake Vital Signs 08/19/23 07:33 Height 5 ft 3.5 in BMI Reason not done Patient refused/unable BP 118/72 Blood Pressure Location Lt brachial Position Sitting Pulse 65 Pulse Source Pulse Oximeter Temp 97 F Temp Source Skin Pulse Oximetry (%) 98 Oxygen Delivery Method Room Air Comment 190lbs on Tuesday Intake Visit Reasons: back pain. Intake Note: Pt last seen by Anastacia 02/23/23, presents today for follow up. Reports taking Flexeril PRN and Tramadol QHS as opposed to PRN. Reports doing PT for sacroliac and it is helping. Reports having episodes of pain limiting sitting and standing. ?Spams. Cashier Host/Hostess Required: No Accompanied by: Self / Same As Patient Allergies lactose Allergy (Unknown, Verified 08/19/23 07:36) lactose intolerant GI upset sulfamethoxazole Allergy (Unknown, Verified 08/19/23 07:36) vomiting tizanidine Allergy (Verified 08/19/23 07:36) Vomiting doxycycline Adverse Reaction (Severe, Verified 08/19/23 07:36) Diarrhea Medication List - Last Reconciled 08/19/23 by Dario Orosco MD acetaminophen (Tylenol Extra Strength) 1,000 mg PO Q6H PRN albuterol sulfate 90 mcg/actuation 2 puffs inhalation Q4-6H PRN bupropion HCl 300 mg PO QAM calcium carbonate (Calcium) 600 mg PO BID 90 days cholecalciferol (vitamin D3) 25 mcg PO DAILY 90 days coenzyme Q10 100 mg PO DAILY cyclobenzaprine 10 mg PO DAILY PRN cyclosporine 0.05% 1 drp ophthalmic (eye) BID diclofenac potassium 50 mg PO BID PRN 60 days docusate sodium (Colace) 100 mg PO BID fluticasone propion-salmeterol 500-50 mcg/dose (Wixela Inhub) 1 ea PO BID gabapentin 1,200 mg (2 x 600 mg) PO DAILY 60 days levothyroxine 137 mcg PO QAM loratadine 10 mg PO DAILY losartan-hydrochlorothiazide 100-12.5 mg 1 tab PO DAILY lutein 40 mg PO DAILY magnesium 250 mg PO DAILY metoprolol succinate ER 12.5 mg (1/2 x 25 mg) PO DAILY 90 days montelukast 10 mg PO DAILY 90 days multivitamin 1 tab PO DAILY rosuvastatin 20 mg PO BEDTIME 90 days sennosides (senna) 17.2 mg (2 x 8.6 mg) PO BEDTIME 30 days sumatriptan succinate (Imitrex) 25 mg PO Q2-4H PRN tiotropium bromide (Spiriva with HandiHaler) 1 cap inhalation DAILY tramadol 50 mg PO DAILY PRN vit C-E-zinc ao-mjul-dfl-zeax 250 mg-200 unit -12.5 mg-1 mg (ICaps AREDS2) caps PO HPI HPI Comments History of Present Illness Details 63-year-old female with fibromyalgia and degenerative arthritis returns for follow-up Patient states that she went to PT. she was told that she likely has SI joint dysfunction. She states that the exercises she learned in PT help. She continues to do them at home. She walks 2 miles a day. States that she feels improvement overall but is wondering about an injection in the SI joint area. She takes tramadol daily and takes Flexeril once or twice a week. Has not had any side effects. [facility] Medical History Diverticular disease Acute diverticulitis Macular degeneration Seborrheic keratosis Dyslipidemia Depression Asthma COPD (chronic obstructive pulmonary disease) HTN (hypertension) Hypothyroid Fibromyalgia Lumbar spondylosis Surgical History Hx laparoscopic cholecystectomy History of surgery H/O breast biopsy History of colonoscopy History of hysterectomy History of knee replacement procedure of right knee History of knee replacement procedure of left knee Family History Father Unknown family medical history Mother Unknown family medical history Social History Household Members: Spouse Housing: House Do you presently have visiting nurse or other home services: No Alcohol intake: never Patient Tobacco Use Status: Never used Tobacco e-Cigarette/Vaping Use: Never Used Second Hand Smoke Exposure: No Advance Directives Date on File: 01/08/22 service: No Current occupational status: disabled Cognitive needs: No Hearing needs: No Vision needs: No Review of Systems Musc Details: Muscle spasms Reports back pain, Reports arthralgias and Reports stiffness Physical Exam Vital Signs: Last Vital Signs Temp 97 F 08/19/23 07:33 Pulse 65 08/19/23 07:33 BP 118/72 08/19/23 07:33 Pulse Ox 98 08/19/23 07:33 Oxygen Delivery Method Room Air 08/19/23 07:33 Const General: cooperative, healthy appearing and comfortable Nutritional Appearance: obese morbidly obese Orientation/consciousness: patient oriented x3 Limitations: no limitations HEENT Head: Yes normocephalic and Yes atraumatic Mouth: moist mucous membranes Resp Effort & Inspection: normal respiratory effort and able to speak in complete sentences Auscultation: clear to auscultation bilaterally Cardio Rate: regular rate Rhythm: regular rhythm Back/Spine/Pelvis Other: Bilateral paraspinal muscle tenderness in the lumbar area. Bilateral SI joint tenderness to palpation Positive straight leg raise test and positive SARAH test bilaterally Multiple fibromyalgia tender points Neuro General: patient oriented x3 Assessment & Plan Assessment & Plan (1) Lumbar spondylosis: Comment: Tramadol: 2017 to present Cyclobenzaprine: 2017 to present Gabapentin: Prior to 2012 to present Code(s): M47.816 - Spondylosis without myelopathy or radiculopathy, lumbar region Plan: Stable. Managing symptoms with gabapentin daily tramadol 50 mg daily and prn Flexeril (1-2 times a week)? . She is aware there is a risk of serotonin syndrome when taking Flexeril with tramadol. I have advised her to avoid taking these together if possible. She is also aware that taking Flexeril and tramadol concomitantly may increase somnolence. She has been taking tramadol and Flexeril together for many years without issue and would like to continue. Advised patient to try taking half a tablet of tramadol daily and see how she feels. Follow-up in 6 months (2) Chronic SI joint pain: Code(s): M53.3 - Sacrococcygeal disorders, not elsewhere classified; G89.29 - Other chronic pain Plan: Referred to pain management Plan I spent 15 minutes reviewing patient's chart, evaluating patient, counseling patient and documenting in the chart Orders: Referrals Pain Management Referral G89.29 - Other chronic pain, M53.3 - Sacrococcygeal disorders, not elsewhere classified Coding Level of Care Code Est Pt Level 3 (53073) Diagnoses Lumbar spondylosis M47.816 Chronic SI joint pain M53.3; G89.29
[2023-08-19 07:33] VITALS: BP 118/72; PULSE 65; TEMP 36.1; O2SAT 98
== END 2023-08-19 08:00 | disposition home or self-care (01) ==
PROVIDERS: PCP Nurse Practitioner Family; Visit Provider Student in an Organized Health Care Education/Training Program
DX: M47.816 Spondylosis without myelopathy or radiculopathy, lumbar region (principal); M53.3 Sacrococcygeal disorders, not elsewhere classified; G89.29 Other chronic pain
CPT/HCPCS: 99213

== ENCOUNTER → 2023-08-19 07:29 | Outpatient (BNVA) | payer OTHER, SELFPAY | PROVIDERS: PCP Nurse Practitioner Family; Visit Provider Student in an Organized Health Care Education/Training Program | DX: M47.816 Spondylosis without myelopathy or radiculopathy, lumbar region (principal); M53.3 Sacrococcygeal disorders, not elsewhere classified; G89.29 Other chronic pain | CPT/HCPCS: 99212 ==

== ENCOUNTER 2023-08-23 08:29 | Outpatient (AMB) | payer OTHER, SELFPAY ==
--- NOTE | 2023-08-23 08:30 | MHC.OFFVIS ---
Intake Vital Signs 08/23/23 08:38 Height 5 ft 3.5 in Weight 190 lb BMI 33.1 BP 126/71 Blood Pressure Location Lt brachial Position Sitting Pulse 73 Intake Visit Reasons: 6 Month Follow Up CIC, TICS Intake Note: Radha presents in the office as a 6 month follow up CIC and TICS. CC: She states that she just had a bout of diverticulitis. 07/15/23 - she went through antibiotics and then clear liquids for 4 days. She states it lasted til the end of the month. Pain lasted for about a week. Manager Report Required: No Allergies lactose Allergy (Unknown, Verified 08/23/23 09:28) lactose intolerant GI upset sulfamethoxazole Allergy (Unknown, Verified 08/23/23 09:28) vomiting tizanidine Allergy (Verified 08/23/23 09:28) Vomiting doxycycline Adverse Reaction (Severe, Verified 08/23/23 09:28) Diarrhea HPI 6 Month Follow Up CIC, TICS HPI Details Assessment & Plan (1) Chronic idiopathic constipation: Code(s): K59.04 - Chronic idiopathic constipation Plan: She continues to do well w/o any TICS attacks. She would like to try to cut back on some of the CIC medications. She has senna, colace, and metamucil. I suggest she continue the fiber, and slowly cut back on the senna first, then colace etc adn see what she really needs at a minimum. ROV 6 mos. Medications: Refilled sennosides (senna) 17.2 mg (2 x 8.6 m g) PO BEDTIME 30 d ays 60 caps 6RF co nstipation K59.04 - Chronic i diopathic constipa tion docusate sodium (C olace) 100 mg PO BID 60 caps 6RF TODAY'S VISIT She had another bout ot TICS, due to eating a whole bag of chips, which she did not know was made from popcorn. She had the augmentin I had rx'ed in [place] and this helped her....but she was on doxy and amox at the same time and developed a justine infection. This has also effected her walking routine which helps regulate her bowels. She continues with wt mgmt but has gained wt r/t stress. Her was dx'ed with FEMI virus r/t immune suppression r/t MS medications. HE is seen at [facility]. She continues on metamucil, senna and colace. She brought me fudge!! ROV 6 mos. PFS Medical History Tubular adenoma of colon Diverticular disease Acute diverticulitis Macular degeneration Seborrheic keratosis Dyslipidemia Depression Asthma COPD (chronic obstructive pulmonary disease) HTN (hypertension) Hypothyroid Fibromyalgia Lumbar spondylosis Surgical History History of colonoscopy Hx laparoscopic cholecystectomy History of surgery H/O breast biopsy History of hysterectomy History of knee replacement procedure of right knee History of knee replacement procedure of left knee Family History Father Unknown family medical history Mother Unknown family medical history Household Members: Spouse Housing: House Do you presently have visiting nurse or other home services: No Alcohol intake: never Patient Tobacco Use Status: Never used Tobacco e-Cigarette/Vaping Use: Never Used Second Hand Smoke Exposure: No Advance Directives Date on File: 01/08/22 service: No Current occupational status: disabled Cognitive needs: No Hearing needs: No Vision needs: No Review of Systems Const Denies fatigue, Denies fever(s), Denies night sweats, Denies poor appetite, Reports weight gain and Denies weight loss Eyes Details: glasses Reports requires corrective lenses ENT Reports Normal hearing present, Denies dental pain, Denies dysphagia, Denies hearing loss, Denies mouth pain, Denies odynophagia, Denies throat swelling, Denies tongue swelling and Reports other (Dentition adequate) Card Reports no additional complaints Resp Reports no additional complaints GI Reports abdominal pain, Denies melena, Denies bloating, Denies hematochezia, Reports constipation, Reports GI cramping, Denies dysphagia, Denies excessive flatus, Denies early satiety, Denies heartburn, Denies diarrhea, Denies nausea, Denies odynophagia, Denies vomiting and Denies hematemesis Skin/Breast Denies pruritus, Denies lesions, Denies rash and Denies jaundice Neuro Reports Normal hearing present and Denies Abnormal speech present Psych Reports anxiety Endo Denies fatigue Aller/Immun Denies throat swelling and Denies tongue swelling Physical Exam Vital Signs: Last Vital Signs Pulse 73 08/23/23 08:38 BP 126/71 08/23/23 08:38 BMI result Body Mass Index 33.1 Const General: cooperative, no acute distress, well developed and well groomed Nutritional Appearance: well nourished and obese Orientation/consciousness: oriented to person, oriented to place and oriented to time Limitations: No language barrier HEENT Head: Yes normocephalic and Yes atraumatic Eyes General: appearance normal, both eyes and all related structures Pupils: Equal, round and reactive pupils present Neck Neck: Yes normal visual inspection and Yes no lymphadenopathy Thyroid: Thyroid normal Resp Effort & Inspection: normal respiratory effort and able to speak in complete sentences Auscultation: clear to auscultation bilaterally Cardio Rate: regular rate Rhythm: regular rhythm Heart sounds: Normal, physiologic split S2 sound present Peripheral pulses: radial pulses present and posterior tibial pulses present GI Inspection: No distended, Yes Abdominal panniculus present and Yes obesity Palpation (GI): Soft to palpation, nontender, no guarding, not rigid and No hepatosplenomegaly present Percussion: Yes normal to percussion Auscultation: normal bowel sounds Rectal Exam - Female: deferred Skin General skin exam: no rashes or lesions noted, turgor normal, skin not dry, no jaundice, No spider nevi and no striae Rashes: no rashes Nails: normal Neuro General: oriented to person, oriented to place and oriented to time Cranial nerves: Yes Equal, round and reactive pupils present and Yes Normal hearing present Speech: No Abnormal speech present Extrem General: Yes normal to inspection, No clubbing, No cyanosis and No edema Psych Appearance: grossly normal and well kempt Mental Status: mental status grossly normal Speech and movement: Normal speech and movement present Affect: normal affect Attitude: cooperative Thought process: Normal thought process present and not confabulating Thought content: Normal thought content present Insight: Limited insight present (Psych) Judgement: Limited judgement present (Psych) Assessment & Plan Assessment & Plan (1) Chronic idiopathic constipation: Code(s): K59.04 - Chronic idiopathic constipation Plan: She had another bout ot TICS, due to eating a whole bag of chips, which she did not know was made from popcorn. She had the augmentin I had rx'ed in reserve and this helped her....but she was on doxy and amox at the same time and developed a justine infection. This has also effected her walking routine which helps regulate her bowels. She continues with wt mgmt but has gained wt r/t stress. Her was dx'ed with FEMI virus r/t immune suppression r/t MS medications. HE is seen at [facility]. She continues on metamucil, senna and colace. She brought me fudge!! ROV 6 mos. (2) Diverticular disease: Code(s): K57.90 - Diverticulosis of intestine, part unspecified, without perforation or abscess without bleeding Plan She had another bout ot TICS, due to eating a whole bag of chips, which she did not know was made from popcorn. She had the augmentin I had rx'ed in reserve and this helped her....but she was on doxy and amox at the same time and developed a justine infection. This has also effected her walking routine which helps regulate her bowels. She continues with wt mgmt but has gained wt r/t stress. Her was dx'ed with FEMI virus r/t immune suppression r/t MS medications. HE is seen at [facility]. She continues on metamucil, senna and colace. She brought me fudge!! ROV 6 mos. Medications: New amoxicillin-pot clavulanate 875-125 mg 1 tab PO BID 60 tabs 0RF K57.90 - Diverticulosis of intestine, part unspecified, without perforation or abscess without bleeding Refilled sennosides (senna) 17.2 mg (2 x 8.6 mg) PO BEDTIME 30 days 60 caps 6RF constipation K59.04 - Chronic idiopathic constipation docusate sodium (Colace) 100 mg PO BID 60 caps 6RF Coding Level of Care Code Est Pt Level 3 (49546) Diagnoses Chronic idiopathic constipation K59.04 Diverticular disease K57.90
[2023-08-23 08:38] VITALS: BP 126/71; PULSE 73; BMI 33.1
== END 2023-08-23 09:23 | disposition home or self-care (01) ==
PROVIDERS: PCP Nurse Practitioner Family; Visit Provider Nurse Practitioner
DX: K59.04 Chronic idiopathic constipation (principal); K57.90 Diverticulosis of intestine, part unspecified, without perforation or abscess without bleeding
CPT/HCPCS: 99213

== ENCOUNTER 2023-08-23 08:29 | Outpatient (AMB) | payer OTHER, SELFPAY ==
--- NOTE | 2023-08-23 09:19 | MHC.OFFVISWM ---
Intake VS Expanded 08/23/23 09:29 BP 126/71 Blood Pressure Location Rt brachial Blood Pressure Position Sitting Pulse 73 Pulse Source Pulse Oximeter Temp 97.8 F Temperature Source Temporal Artery Scan Pulse Oximetry 98 Oxygen Delivery Method Room Air Height 5 ft 3.5 in Weight 196 lb 3.2 oz BMI 34.2 Body Fat % 42.1 Body Fat Mass 82.4 Fat Free Mass 113.6 Visceral Fat Rating 12.0 Body Water % 40.9 Body Water Mass 80.2 Muscle Mass/Score 107.8 Basal Metabolic Rate/Score 1,564 Intake Visit Reasons: (OV) F/U [facility] Allergies lactose Allergy (Unknown, Verified 08/23/23 09:28) lactose intolerant GI upset sulfamethoxazole Allergy (Unknown, Verified 08/23/23 09:28) vomiting tizanidine Allergy (Verified 08/23/23 09:28) Vomiting doxycycline Adverse Reaction (Severe, Verified 08/23/23 09:28) Diarrhea Medication List - Last Reconciled 08/23/23 by BRENDA Cooley acetaminophen (Tylenol Extra Strength) 1,000 mg PO Q6H PRN albuterol sulfate 90 mcg/actuation 2 puffs inhalation Q4-6H PRN bupropion HCl 300 mg PO QAM calcium carbonate (Calcium) 600 mg PO BID 90 days cholecalciferol (vitamin D3) 25 mcg PO DAILY 90 days coenzyme Q10 100 mg PO DAILY cyclobenzaprine 10 mg PO DAILY PRN cyclosporine 0.05% 1 drp ophthalmic (eye) BID diclofenac potassium 50 mg PO BID PRN 60 days docusate sodium (Colace) 100 mg PO BID fluticasone propion-salmeterol 500-50 mcg/dose (Wixela Inhub) 1 ea PO BID gabapentin 1,200 mg (2 x 600 mg) PO DAILY 60 days levothyroxine 137 mcg PO QAM loratadine 10 mg PO DAILY losartan-hydrochlorothiazide 100-12.5 mg 1 tab PO DAILY lutein 40 mg PO DAILY magnesium 250 mg PO DAILY metoprolol succinate ER 12.5 mg (1/2 x 25 mg) PO DAILY 90 days montelukast 10 mg PO DAILY 90 days multivitamin 1 tab PO DAILY rosuvastatin 20 mg PO BEDTIME 90 days sennosides (senna) 17.2 mg (2 x 8.6 mg) PO BEDTIME 30 days sumatriptan succinate (Imitrex) 25 mg PO Q2-4H PRN tiotropium bromide (Spiriva with HandiHaler) 1 cap inhalation DAILY tramadol 50 mg PO DAILY PRN vit C-E-zinc ii-dgim-kyu-zeax 250 mg-200 unit -12.5 mg-1 mg (ICaps AREDS2) caps PO HPI HPI Comments History of Present Illness Details Pt presents in followup for [facility], visit #4. Starting weight: 203 Weight at last visit: 199.4 Weight today: 196.2 Total weight change since starting program: -6.8 Since last visit had an attack of diverticulitis, had trouble getting back on track. Before she got ill she was down to 186lbs. Now feels like she can't get her carb intake under control. Has a cruise coming up next month, also helping her with treatment for MS/infusion. Not sleeping well. Current meal plan: Pure protein shake, 1 scoop of powder (25g protein) with a small amount of coffee, greens powder, collagen (9g protein) and metamucil Snack of Clementines Pure Protein bar 3pm - rice cakes with peanut butter- tried powdered PB mixed with a very small amount of regular PB to give creaminess Dinner 3 eggs, 1 slice of white bread, or omelet with cheese/ham/veggies, or bunless burder with a salad or chicken on salad, sometimes has pizza but will only have one piece sometimes will have a regular lowfat yogurt with blueberries and a small amount of granola sometimes has a fudgesicle after dinner Exercise: [place] Rose, 2 miles usually every day [facility] Medical History Tubular adenoma of colon Diverticular disease Acute diverticulitis Macular degeneration Seborrheic keratosis Dyslipidemia Depression Asthma COPD (chronic obstructive pulmonary disease) HTN (hypertension) Hypothyroid Fibromyalgia Lumbar spondylosis Surgical History History of colonoscopy Hx laparoscopic cholecystectomy History of surgery H/O breast biopsy History of hysterectomy History of knee replacement procedure of right knee History of knee replacement procedure of left knee Family History Father Unknown family medical history Mother Unknown family medical history Household Members: Spouse Housing: House Do you presently have visiting nurse or other home services: No Alcohol intake: never Patient Tobacco Use Status: Never used Tobacco e-Cigarette/Vaping Use: Never Used Second Hand Smoke Exposure: No Advance Directives Date on File: 01/08/22 service: No Current occupational status: disabled Cognitive needs: No Hearing needs: No Vision needs: No Physical Exam Vital Signs: Last Vital Signs Temp 97.8 F 08/23/23 09:29 Pulse 73 08/23/23 09:29 BP 126/71 08/23/23 09:29 Pulse Ox 98 08/23/23 09:29 Oxygen Delivery Method Room Air 08/23/23 09:29 BMI result Body Mass Index 34.2 Assessment & Plan Assessment & Plan (1) Obesity: Code(s): E66.9 - Obesity, unspecified Plan Pt does not want any changes to meal plan today, feels motivated to get back to previous meal plan after recovering from illness. She had good success with it prior to illness. She has continued to exercise throughout. I encouraged her to reach out to me via patient portal if she has any questions between now and next visit, and she will continue to come in weekly for weight checks. RTC in October per pt preference. Patient is obese and is not considered stable at this time. I spent a total of 30 minutes reviewing/updating records, examining the patient and counseling the patient on weight management as detailed above. Coding Level of Care Code Est Pt Level 4 (74190) Diagnoses Obesity E66.9
[2023-08-23 09:29] VITALS: BP 126/71; PULSE 73; TEMP 36.6; O2SAT 98; BMI 34.2
== END 2023-08-23 10:08 | disposition home or self-care (01) ==
PROVIDERS: PCP Nurse Practitioner Family; Visit Provider Physician Assistant Surgical
DX: E66.9 Obesity, unspecified (principal)
CPT/HCPCS: 99214

== ENCOUNTER → 2023-08-23 08:29 | Outpatient (BNVA) | payer OTHER, SELFPAY | PROVIDERS: PCP Nurse Practitioner Family; Visit Provider Physician Assistant Surgical | DX: K57.90 Diverticulosis of intestine, part unspecified, without perforation or abscess without bleeding (principal); K59.04 Chronic idiopathic constipation; E66.9 Obesity, unspecified; Z68.33 Body mass index [BMI] 33.0-33.9, adult | CPT/HCPCS: 99212 ==

== ENCOUNTER → 2023-09-02 08:23 | Outpatient (BNVA) | payer OTHER, SELFPAY | PROVIDERS: PCP Nurse Practitioner Family; Visit Provider Physician Assistant Surgical ==

== ENCOUNTER → 2023-09-09 08:25 | Outpatient (BNVA) | payer OTHER, SELFPAY | PROVIDERS: PCP Nurse Practitioner Family; Visit Provider Physician Assistant Surgical ==

== ENCOUNTER 2023-09-12 08:54 | Outpatient (AMB) | payer OTHER, SELFPAY ==
--- NOTE | 2023-09-12 09:00 | MHC.OFFVIS ---
Intake Vital Signs 09/12/23 09:01 Height 5 ft 3.5 in Weight 191 lb BMI 33.3 BP 128/77 Blood Pressure Location Lt brachial Position Sitting Respiration 12 Pulse 73 Pulse Source Pulse Oximeter Pulse Oximetry (%) 96 Oxygen Delivery Method Room Air Intake Visit Reasons: Sacrococcygeal disorders,not elsewhere classified Allergies lactose Allergy (Unknown, Verified 09/12/23 09:02) lactose intolerant GI upset sulfamethoxazole Allergy (Unknown, Verified 09/12/23 09:02) vomiting tizanidine Allergy (Verified 09/12/23 09:02) Vomiting doxycycline Adverse Reaction (Severe, Verified 09/12/23 09:02) Diarrhea Medication List - Last Reconciled 09/12/23 by Tati Lambert LPN acetaminophen (Tylenol Extra Strength) 1,000 mg PO Q6H PRN albuterol sulfate 90 mcg/actuation 2 puffs inhalation Q4-6H PRN bupropion HCl 300 mg PO QAM calcium carbonate (Calcium) 600 mg PO BID 90 days cholecalciferol (vitamin D3) 25 mcg PO DAILY 90 days coenzyme Q10 100 mg PO DAILY cyclobenzaprine 10 mg PO DAILY PRN cyclosporine 0.05% 1 drp ophthalmic (eye) BID diclofenac potassium 50 mg PO BID PRN 60 days docusate sodium (Colace) 100 mg PO BID fluticasone propion-salmeterol 500-50 mcg/dose (Wixela Inhub) 1 ea PO BID gabapentin 1,200 mg (2 x 600 mg) PO DAILY 60 days levothyroxine 137 mcg PO QAM loratadine 10 mg PO DAILY losartan-hydrochlorothiazide 100-12.5 mg 1 tab PO DAILY lutein 40 mg PO DAILY magnesium 250 mg PO DAILY metoprolol succinate ER 12.5 mg (1/2 x 25 mg) PO DAILY 90 days montelukast 10 mg PO DAILY 90 days multivitamin 1 tab PO DAILY rosuvastatin 20 mg PO BEDTIME 90 days sennosides (senna) 17.2 mg (2 x 8.6 mg) PO BEDTIME 30 days sumatriptan succinate (Imitrex) 25 mg PO Q2-4H PRN tiotropium bromide (Spiriva with HandiHaler) 1 cap inhalation DAILY tramadol 50 mg PO DAILY PRN vit C-E-zinc ny-kxaf-dbz-zeax 250 mg-200 unit -12.5 mg-1 mg (ICaps AREDS2) caps PO HPI Sacrococcygeal disorders,not elsewhere classified HPI Details 63-year-old female who presents today to the office for an evaluation of left buttock pain. The patient was referred by Dr. Orosco. She has a history of fibromyalgia, scoliosis, and spondylosis. The patient complains of left buttock pain that radiates partly down her leg and around the buttock area. She has been taking Tramadol and Cyclobenzaprine with good effect for many years. She went and recently received physical therapy, and per the therapist, she has SI joint dysfunction. She denies any radiation below the upper thigh area. She stays at home. The pain is described as an aching, stabbing sensation, usually more than 7/10 in intensity. On average, she is unable to sleep normally or do her daily activities. She is retired from part-time work. 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 Sitting makes the pain worse. Heat/cold application and medications make the pain better. She has been receiving cortisone injection for right greater trochanteric pain syndrome at [facility]. She has been taking Vit D and calcium supplements. She had DEXA scan about five years ago, which was unremarkable. History is notable for right trochanteric bursectomy. She receives regular steroid injections to the right greater trochanter by her orthopedic surgeon at [facility]. [facility] Medical History Tubular adenoma of colon Diverticular disease Acute diverticulitis Macular degeneration Seborrheic keratosis Dyslipidemia Depression Asthma COPD (chronic obstructive pulmonary disease) HTN (hypertension) Hypothyroid Fibromyalgia Lumbar spondylosis Surgical History History of colonoscopy Hx laparoscopic cholecystectomy History of surgery H/O breast biopsy History of hysterectomy History of knee replacement procedure of right knee History of knee replacement procedure of left knee Family History Father Unknown family medical history Mother Unknown family medical history Social History Household Members: Spouse Housing: House Do you presently have visiting nurse or other home services: No Alcohol intake: never Patient Tobacco Use Status: Never used Tobacco e-Cigarette/Vaping Use: Never Used Second Hand Smoke Exposure: No Advance Directives Date on File: 01/08/22 service: No Current occupational status: disabled Cognitive needs: No Hearing needs: No Vision needs: No Review of Systems Const All systems reviewed & are unremarkable except as noted in HPI and below Physical Exam Vital Signs: Last Vital Signs Pulse 73 09/12/23 09:01 Resp 12 09/12/23 09:01 BP 128/77 09/12/23 09:01 Pulse Ox 96 09/12/23 09:01 Oxygen Delivery Method Room Air 09/12/23 09:01 BMI result Body Mass Index 33.3 General: Appears afebrile. Alert and oriented. Mood and affect appropriate. Follows and participates in conversation appropriately. Respiratory effort is unlabored. Able to transition from sit to stand unassisted. Ambulates with bilaterally normal heel strike and toe off. Tenderness to palpation overlying the left ischial bursa is positive. No particular tenderness overlying the sacroiliac joint. Sacroiliac joint provocation tests including thigh thrust, SARAH and compression reproduce pain in the left buttock. Office Procedures Joint Injection/Drain Joint Injection/Drain Details: Left Ischial Bursa Injection, ultrasound guided. Primary Site: other (left Ischial Bursa) Prep: site was prepped using sterile technique Injected: 40 mg of, Kenalog, with 3 mL of (0.5% ropivacaine) and other (Around the left Ischial Bursa) Approach Used: other (Lateral approach under ultrasound guidance) Procedure: The patient tolerated the procedure well Coding Details: An ultrasound image of the injection was taken and stored in the permanent record. Procedure code (CPT) selection complete Results Reviewed Results Reviewed: 04/22/2022: CT ABDOMEN AND PELVIS WITH CONTRAST OSSEOUS STRUCTURES: No suspicious focal lesion. Degenerative changes in the spine. There are metallic anchors associated with the right greater trochanter. There is gluteal muscular atrophy. Scoliosis of the lumbar spine noted. Sacroiliac joints appear largely intact without evidence of significant degeneration. Assessment & Plan Assessment & Plan (1) Ischial bursitis of left side: Code(s): M70.72 - Other bursitis of hip, left hip (2) Greater trochanteric pain syndrome of right lower extremity: Code(s): M25.551 - Pain in right hip Plan 63-year-old female with 1 year history of left buttock and upper thigh pain that is worse with sitting. History and physical was consistent with ischial bursitis so we performed a left ischial bursa injection, ultrasound guided, in the office today. Patient tolerated procedure well and was discharged home in stable condition with discharge instructions. All questions were answered. Patient will return to clinic as needed for either ischial bursitis repeat injection, or right greater trochanter injection under ultrasound guidance. Sacroiliac joint dysfunction is less likely, though possible. If she does not gain any relief from injection and exercises for ischial bursitis, we can consider sacroiliac joint diagnostic injection in the future. Scribed for Dr. Snider by Bartolo Cramer, medical detail representative, on 09/12/2023. I, Dr. Snider, have personally reviewed and agree with the information entered by the scribe. Coding Level of Care Code New Pt Level 4 (05767) Diagnoses Ischial bursitis of left side M70.72 Greater trochanteric pain syndrome of right lower extremity M25.551
[2023-09-12 09:01] VITALS: BP 128/77; PULSE 73; RESP 12; O2SAT 96; BMI 33.3
== END 2023-09-12 10:01 | disposition home or self-care (01) ==
PROVIDERS: PCP Nurse Practitioner Family; Referring Provider Student in an Organized Health Care Education/Training Program; Visit Provider Internal Medicine
DX: M70.72 Other bursitis of hip, left hip (principal); M25.551 Pain in right hip
CPT/HCPCS: 20611; 99204

== ENCOUNTER → 2023-09-12 08:54 | Outpatient (BNVA) | payer OTHER, SELFPAY | PROVIDERS: PCP Nurse Practitioner Family; Referring Provider Student in an Organized Health Care Education/Training Program; Visit Provider Internal Medicine | DX: M70.72 Other bursitis of hip, left hip (principal); M25.551 Pain in right hip | CPT/HCPCS: 20611; 99202; J0665; J3301 ==

== ENCOUNTER → 2023-09-16 08:26 | Outpatient (BNVA) | payer OTHER, SELFPAY | PROVIDERS: PCP Nurse Practitioner Family; Visit Provider Physician Assistant Surgical ==

== ENCOUNTER 2023-09-22 08:37 | Outpatient (REF) | payer OTHER, SELFPAY ==
[2023-09-22 11:32] LABS: MANUAL DIFF FLAG NO
[2023-09-22 12:02] LABS: Basophils Percent Auto 0.5 % (0-2); Eosinophils Absolute Auto 0.3 X10*3/uL (0.0-0.4); Eosinophils Percent Auto 3.8 % (0-4); Hematocrit 39.9 % (37.0-47.0); Imm Gran Abs Auto 0.03 X10*3/uL (0.00-0.03); Imm Gran Pct Auto 0.3 % (0.0-0.4); Lymphocytes Absolute Auto 2.7 X10*3/uL (1.2-4.9); Lymphocytes Percent Auto 31.3 % (20-40); Mean Corpuscular HGB Conc 32.6 g/dl (31.0-35.0); Mean Corpuscular Volume 88.9 fL (80.0-98.0); Mean Platelet Volume 8.7 fL (9.4-12.3); Monocytes Absolute Auto 0.7 X10*3/uL (0.1-1.2); Neutrophils Absolute Auto 4.8 x10*3/uL (2.0-8.3); Neutrophils Percent Auto 56.1 % (45-73); Platelet Count 338 X10*3/uL (160-400); Red Blood Count 4.49 X10*6/uL (4.20-5.50); Red Cell Distribution Width 14.6 % (11.0-16.0); White Blood Count 8.6 X10*3/uL (4.8-10.8)
[2023-09-22 12:36] LABS: Alanine Aminotransferase 33 U/L (0-31); Alkaline Phosphatase 44 U/L (39-117); Anion Gap 12 (12-20); Aspartate Amino Transferase 26 U/L (5-31); Bilirubin Total 0.4 mg/dL (0.0-1.0); Blood Urea Nitrogen 22 mg/dL (9-16); Calcium 9.6 mg/dL (8.4-10.2); Carbon Dioxide 28 mmol/L (22-29); Chloride 105 mmol/L (96-108); Estimated Glomerular Filt Rate 48; Glucose Random 72 mg/dL (60-115); Potassium 3.6 mmol/L (3.3-5.1); Sodium 141 mmol/L (135-145); Total Protein 6.3 g/dL (6.5-8.0)
[2023-09-22 12:37] LABS: TSH reflex Free T4 6.48 uIU/mL (0.32-4.0)
[2023-09-22 12:56] LABS: Appearance Urine Clear; Color Urine Yellow; Glucose Urine UA Negative (Negative); Leukocyte Esterase Urine Negative (Negative); Nitrite Urine Negative (Negative); PH 7.5 (5.0-9.0); Urine Blood Negative (Negative); Urine Ketones Negative (Negative); Urine Protein Negative (Neg-Trace)
[2023-09-22 13:09] LABS: Free T4 (Free Thyroxine) 0.97 ng/dL (0.71-1.85)
== END 2023-09-22 08:38 | disposition home or self-care (01) ==
LOC: HO.HMGCLDS 08:37
PROVIDERS: PCP Nurse Practitioner Family; Visit Provider Nurse Practitioner Family
DX: I10 Essential (primary) hypertension (principal)
CPT/HCPCS: 36415; 80053; 81003; 84439; 84443; 85025

== ENCOUNTER → 2023-09-23 08:28 | Outpatient (BNVA) | payer OTHER, SELFPAY | PROVIDERS: PCP Nurse Practitioner Family; Visit Provider Physician Assistant Surgical ==

== ENCOUNTER → 2023-10-07 08:26 | Outpatient (BNVA) | payer OTHER, SELFPAY | PROVIDERS: PCP Nurse Practitioner Family; Visit Provider Physician Assistant Surgical ==

== ENCOUNTER → 2023-10-21 07:58 | Outpatient (BNVA) | payer OTHER, SELFPAY | PROVIDERS: PCP Nurse Practitioner Family; Visit Provider Physician Assistant Surgical ==

== ENCOUNTER 2023-10-25 10:20 | Outpatient (AMB) | payer OTHER, SELFPAY ==
--- NOTE | 2023-10-25 10:08 | A.OFFVIS_ITS ---
Intake VS Expanded 10/25/23 10:15 Height 5 ft 3.5 in Weight 190 lb BMI 33.1 Intake Visit Reasons: (TV) F/U [facility] Allergies lactose Allergy (Unknown, Verified 09/12/23 09:02) lactose intolerant GI upset sulfamethoxazole Allergy (Unknown, Verified 09/12/23 09:02) vomiting tizanidine Allergy (Verified 09/12/23 09:02) Vomiting doxycycline Adverse Reaction (Severe, Verified 09/12/23 09:02) Diarrhea Medication List - Last Reconciled 10/25/23 by BRENDA Cooley acetaminophen (Tylenol Extra Strength) 1,000 mg PO Q6H PRN albuterol sulfate 90 mcg/actuation 2 puffs inhalation Q4-6H PRN bupropion HCl 300 mg PO QAM calcium carbonate (Calcium) 600 mg PO BID 90 days cholecalciferol (vitamin D3) 25 mcg PO DAILY 90 days coenzyme Q10 100 mg PO DAILY cyclobenzaprine 10 mg PO DAILY PRN cyclosporine 0.05% 1 drp ophthalmic (eye) BID diclofenac potassium 50 mg PO BID PRN 60 days docusate sodium (Colace) 100 mg PO BID fluticasone propion-salmeterol 500-50 mcg/dose (Wixela Inhub) 1 ea PO BID gabapentin 1,200 mg (2 x 600 mg) PO DAILY 60 days levothyroxine 150 mcg PO QAM loratadine 10 mg PO DAILY losartan-hydrochlorothiazide 100-12.5 mg 1 tab PO DAILY lutein 40 mg PO DAILY magnesium 250 mg PO DAILY metoprolol succinate ER 12.5 mg (1/2 x 25 mg) PO DAILY 90 days montelukast 10 mg PO DAILY 90 days multivitamin 1 tab PO DAILY rosuvastatin 20 mg PO BEDTIME 90 days sennosides (senna) 17.2 mg (2 x 8.6 mg) PO BEDTIME 30 days sumatriptan succinate (Imitrex) 25 mg PO Q2-4H PRN tiotropium bromide (Spiriva with HandiHaler) 1 cap inhalation DAILY tramadol 50 mg PO DAILY PRN vit C-E-zinc bh-upiq-tlu-zeax 250 mg-200 unit -12.5 mg-1 mg (ICaps AREDS2) caps PO HPI HPI Comments History of Present Illness Details Pt presents in followup for [facility], visit #5. Starting weight: 203 Weight at last visit: 196.2 Weight today: 190 Total weight change since starting program: -13 Going to [place] to visit family in 3 weeks. Continues to help her with treatment for MS/infusion. 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 Had BP med adjusted recently due to low readings, will skip doses on days that she checks at home and is low. Current meal plan: Pure protein shake, 1 scoop of powder (25g protein) with a small amount of coffee, greens powder, collagen (9g protein) and metamucil Snack of [place] Pure Protein bar 3pm - rice cakes with peanut butter- tri ed powdered PB mixed with a very small amount of regular PB to give creaminess Dinner 3 eggs, 1 slice of white bread, or omelet with cheese/ham/veggies, or bunless burder with a salad or chicken on salad, sometimes has pizza but will only have one piece sometimes will have a regular lowfat yogurt with blueberries and a small amount of granola sometimes has a fudgesicle after dinner drinking adequate fluids Exercise: Kandis Rose, 2 miles usually every day although had an ingrown toenail that needed to be removed so could not put sneaker [facility] Medical History Tubular adenoma of colon Diverticular disease Acute diverticulitis Macular degeneration Seborrheic keratosis Dyslipidemia Depression Asthma COPD (chronic obstructive pulmonary disease) HTN (hypertension) Hypothyroid Fibromyalgia Lumbar spondylosis Surgical History History of colonoscopy Hx laparoscopic cholecystectomy History of surgery H/O breast biopsy History of hysterectomy History of knee replacement procedure of right knee History of knee replacement procedure of left knee Family History Father Unknown family medical history Mother Unknown family medical history Social History Household Members: Spouse Housing: House Do you presently have visiting nurse or other home services: No Alcohol intake: never Patient Tobacco Use Status: Never used Tobacco e-Cigarette/Vaping Use: Never Used Second Hand Smoke Exposure: No Advance Directives Date on File: 01/08/22 service: No Current occupational status: disabled Cognitive needs: No Hearing needs: No Vision needs: No Assessment & Plan Assessment & Plan (1) Obesity: Code(s): E66.9 - Obesity, unspecified Plan Discussed pt's overall progress and emphasized consistency over perfection. Discussed recent improvements such as improvement in BP and requiring fewer meds. She will resume her exercise regimen. RTC 8 weeks. Patient is obese and is not considered stable at this time. I spent a total of 30 minutes reviewing/updating records, examining the patient and counseling the patient on weight management as detailed above. Telehealth Telehealth Location of provider rendering services: practice address Location of patient: address on file Patient Identification confirmed using: Name, : Yes Telehealth method: voice only Patient verbally consented to treatment: Yes Patient verbally consented to billing insurance company: Yes Patient informed of any privacy concerns related to visit: Yes Minutes spent on Phone/Video with Pt.: 22 Coding Level of Care Code Tele Est Pt Level 4 (47365) Diagnoses Obesity E66.9
[2023-10-25 10:15] VITALS: BMI 33.1
== END 2023-10-25 10:26 | disposition home or self-care (01) ==
LOC: HO.HBS 10:20
PROVIDERS: PCP Nurse Practitioner Family; Visit Provider Physician Assistant Surgical
DX: E66.9 Obesity, unspecified (principal); Z68.33 Body mass index [BMI] 33.0-33.9, adult
CPT/HCPCS: 99214

== ENCOUNTER → 2023-10-25 10:20 | Outpatient (BNVA) | payer OTHER, SELFPAY | PROVIDERS: PCP Nurse Practitioner Family; Visit Provider Physician Assistant Surgical ==

== ENCOUNTER 2023-10-27 08:29 | Outpatient (AMB) | payer OTHER, SELFPAY ==
[2023-10-27 08:49] VITALS: BP 108/70; PULSE 72; O2SAT 98
--- NOTE | 2023-10-27 08:49 | MHC.PC.OV ---
Vital Signs 10/27/23 08:49 Height 5 ft 3.5 in BMI Reason not done Patient refused/unable BP 108/70 Blood Pressure Location Rt brachial Position Sitting Pulse 72 Pulse Source Pulse Oximeter Pulse Oximetry (%) 98 Oxygen Delivery Method Room Air Intake Visit Reasons: 3 month Follow up HTN Intake Note: Pt is here for a 3 month follow up for HTN Allergies lactose Allergy (Unknown, Verified 10/27/23 08:52) lactose intolerant GI upset sulfamethoxazole Allergy (Unknown, Verified 10/27/23 08:52) vomiting tizanidine Allergy (Verified 10/27/23 08:52) Vomiting doxycycline Adverse Reaction (Severe, Verified 10/27/23 08:52) Diarrhea Tobacco use date assessed: 10/27/23 Fall risk assessment: No Falls in past year Last assessed Fall Risk: 10/27/23 Dental Screening Dental Screen Date: 10/27/23 Did you have a dental visit in the last 12 months?: Yes Did you have a dental problem in the last 6 months where you did not have access to dental care?: No Was dental information given to patient?: Patient has dentist HPI 3 month Follow up HTN HPI Details HTN: Blood pressure is stable, managed with losartan-hydrochlorothiazide 100-12.5mg and metoprolol 12.5mg. She reports not taking her losartan-hctz because her BP was lower and she developed dizziness. Will stop this med. Will slowly decrease metoprolol. Encouraged pt to increase fluids. Denies chest pain, shortness of breath, headache, and blurred vision. Pt c/o nausea. She reports becoming nauseous after eating. Pt has been losing weight which is most likely contributing to her hypotension. [facility] Medical History Tubular adenoma of colon Diverticular disease Acute diverticulitis Macular degeneration Seborrheic keratosis Dyslipidemia Depression Asthma COPD (chronic obstructive pulmonary disease) HTN (hypertension) Hypothyroid Fibromyalgia Lumbar spondylosis Surgical History History of colonoscopy Hx laparoscopic cholecystectomy History of surgery H/O breast biopsy History of hysterectomy History of knee replacement procedure of right knee History of knee replacement procedure of left knee Family History Father Unknown family medical history Mother Unknown family medical history Social History Household Members: Spouse Housing: House Do you presently have visiting nurse or other home services: No Alcohol intake: never Patient Tobacco Use Status: Never used Tobacco e-Cigarette/Vaping Use: Never Used Second Hand Smoke Exposure: No Advance Directives Date on File: 01/08/22 service: No Current occupational status: disabled Cognitive needs: No Hearing needs: No Vision needs: No Questionnaire PHQ-9 Over the last 2 weeks, how often have you been bothered by any of the following problems? 1. Little interest or pleasure in doing things: not at all 2. Feeling down, depressed, or hopeless: not at all 3. Trouble falling or staying asleep, or sleeping too much: several days 4. Feeling tired or having little energy: not at all 5. Poor appetite or overeating: not at all 6. Feeling bad about yourself - or that you are a failure or have let yourself or your family down: not at all 7. Trouble concentrating on things, such as reading the newspaper or watching television: not at all 8. Moving or speaking so slowly that other people could have noticed. Or the opposite - being so fidgety or restless that you have been moving around a lot more than usual: not at all 9. Thoughts that you would be better off or of hurting yourself in some way: not at all Total score: 1 Source: Developed by Drs. Chadwick Scott, Lindsay Bender, Elliot Cox and colleagues, with an educational lucero from [employer]. Thrive Questionnaire Date Thrive assessed: 10/27/23 I am a: Patient What is your living situation today?: I have a steady place to live Within the past 12 months, did the food you bought not last and you didn't have the money to get more?: Never true Within the past 12 months, did you worry whether your food would run out before you got money to buy more?: Never true Do you have trouble paying for medicines?: No Do you have trouble getting transportation to medical appointments?: No Do you have trouble paying your heating and electricity bill?: No Do you have trouble taking care of your child, family member or friend?: No Do you have trouble with day-to-day activities such as bathing, preparing meals, shopping, managing finances, etc.?: No Are you currently unemployed and looking for a job?: No Are you interested in more education?: No Please select the resources that you would like help with: None THRIVE Score: 0 AUDIT C Alcohol Use Questionnaire (AUDIT-C) 1. How often do you have a drink containing alcohol?: Never 3. How often do you have six or more drinks on one occasion?: Never Total Score: 0 MCKENNA-7 AMB Questionnaire MCKENNA-7 Date MCKENNA - 7 assessed: 10/27/23 Feeling nervous, anxious, or on edge: 0 = Not at all Not being able to stop or control worryin = Not at all Worrying too much about different things: 0 = Not at all Trouble relaxin = Not at all Being so restless that it is hard to sit still: 0 = Not at all Becoming easily annoyed or irritable: 0 = Not at all Feeling afraid as if something awful might happen: 0 = Not at all Total MCKENNA-7 score (0-4 normal; 5-9 mild; 10-14 moderate; 15-21 severe): 0 Source: Developed by Drs. Chadwick Scott, Lindsay Bender, Elliot Cox and colleagues, with an educational lucero from [employer]. Review of Systems Const Reports as per HPI Physical exam (Primary Care) Vital Signs: Last Vital Signs Pulse 72 10/27/23 08:49 BP 108/70 10/27/23 08:49 Pulse Ox 98 10/27/23 08:49 Oxygen Delivery Method Room Air 10/27/23 08:49 Tobacco/Smoking Status: Tobacco use Status Tobacco use date assessed 10/27/23 10/27/23 08:55 Patient Tobacco Use Status Never used Tobacco 10/27/23 08:55 e-Cigarette/Vaping Use Never Used 10/27/23 08:55 PHQ-9: PHQ-9 Score PHQ-9: Total score 1 10/27/23 09:10 Thrive Assessment: Date of Thrive Assessment Date Thrive assessed 10/27/23 10/27/23 08:58 Const General: cooperative Orientation/consciousness: patient oriented x3 Resp Effort & Inspection: normal respiratory effort Auscultation: clear to auscultation bilaterally Cardio Rate: regular rate Rhythm: regular rhythm Heart sounds: S1 normal heart sound present and S2 normal heart sound present Neuro General: patient oriented x3 Psych Appearance: grossly normal Mental Status: mental status grossly normal Speech and movement: Normal speech and movement present Affect: normal affect Attitude: cooperative Thought process: Normal thought process present Thought content: Normal thought content present Insight: Good insight present (Psych) Judgement: Good judgement present (Psych) Assessment and Plan Assessment & Plan (1) HTN (hypertension): Code(s): I10 - Essential (primary) hypertension Plan: stop losartan -hctz, tapering off BB. WIll cont to monitor BP at home, she will call me with questions or concerns Plan The patient agreed to the use of a medical research associate for this encounter. Scribed for JOEL Cruz by Shelbi Mendoza medical research associate, on 10/27/2023 at 09:05 EST. Orders: Orders Complete Blood Count Auto Diff Today I10 - Essential (primary) hypertension Comprehensive [place]. Panel Fast Today I10 - Essential (primary) hypertension TSH reflex Free T4 Today I10 - Essential (primary) hypertension Medications: Discontinued losartan-hydrochlorothiazide 100-12.5 mg Discontinued Reason: Doctor's Order 1 tab PO DAILY 90 tabs 1RF Coding Level of Care Code Est Pt Level 3 (86984) Diagnoses HTN (hypertension) I10
== END 2023-10-27 09:20 | disposition home or self-care (01) ==
PROVIDERS: PCP Nurse Practitioner Family; Visit Provider Nurse Practitioner Family
DX: I10 Essential (primary) hypertension (principal)
CPT/HCPCS: 99213

== ENCOUNTER → 2023-11-07 07:55 | Outpatient (BNVA) | payer OTHER, SELFPAY | PROVIDERS: PCP Nurse Practitioner Family; Visit Provider Physician Assistant Surgical ==

== ENCOUNTER 2024-01-02 09:53 | Outpatient (AMB) | payer MEDICARE, OTHER, SELFPAY ==
--- NOTE | 2024-01-02 10:07 | A.OFFPC_ITS ---
Vital Signs 01/02/24 10:09 Weight 199 lb BP 124/82 Blood Pressure Location Rt brachial Position Sitting Pulse 76 Pulse Source Pulse Oximeter Pulse Oximetry (%) 98 Oxygen Delivery Method Room Air Intake Visit Reasons: BP Follow up Intake Note: Patient here for BP. pt states she has been checking it at home and they have been elevated. Allergies lactose Allergy (Unknown, Verified 01/02/24 10:09) lactose intolerant GI upset sulfamethoxazole Allergy (Unknown, Verified 01/02/24 10:09) vomiting tizanidine Allergy (Verified 01/02/24 10:09) Vomiting doxycycline Adverse Reaction (Severe, Verified 01/02/24 10:09) Diarrhea Medication List - Last Reconciled 01/02/24 by DANNIE Hays-THEODORE acetaminophen (Tylenol Extra Strength) 1,000 mg PO Q6H PRN albuterol sulfate 90 mcg/actuation 2 puffs inhalation Q4-6H PRN bupropion HCl 300 mg PO QAM calcium carbonate (Calcium) 600 mg PO BID 90 days cholecalciferol (vitamin D3) 25 mcg PO DAILY 90 days coenzyme Q10 100 mg PO DAILY cyclobenzaprine 10 mg PO DAILY PRN cyclosporine 0.05% 1 drp ophthalmic (eye) BID diclofenac potassium 50 mg PO BID PRN 90 days docusate sodium (Colace) 100 mg PO BID fluticasone propion-salmeterol 500-50 mcg/dose (Wixela Inhub) 1 ea PO BID gabapentin 1,200 mg (2 x 600 mg) PO DAILY 60 days levothyroxine 150 mcg PO QAM loratadine 10 mg PO DAILY lutein 40 mg PO DAILY magnesium 250 mg PO DAILY metoprolol succinate ER 25 mg PO DAILY 90 days montelukast 10 mg PO DAILY 90 days multivitamin 1 tab PO DAILY rosuvastatin 20 mg PO BEDTIME 90 days sennosides (senna) 17.2 mg (2 x 8.6 mg) PO BEDTIME 30 days sumatriptan succinate (Imitrex) 25 mg PO Q2-4H PRN tiotropium bromide (Spiriva with HandiHaler) 1 cap inhalation DAILY tramadol 50 mg PO DAILY PRN vit C-E-zinc fz-jbnc-vee-zeax 250 mg-200 unit -12.5 mg-1 mg (ICaps AREDS2) caps PO Tobacco use date assessed: 10/27/23 Fall risk assessment: No Falls in past year Last assessed Fall Risk: 01/02/24 Dental Screening Dental Screen Date: 10/27/23 HPI BP Follow up HPI Details HTN: Blood pressure is managed with metoprolol 12.5mg. Pt reports that her blood pressure has been elevated at home. Will increase metoprolol to 25mg. Pt will let me know if her blood pressure remains elevated. Denies chest pain, shortness of breath, headache, dizziness, and blurred vision. Pt reports a cough. She reports testing negative for COVID. Will send zpak. Told pt she can take an OTC cough medicine without a nasal decongestant. Denies fever, chills, and dizziness. [facility] Medical History Tubular adenoma of colon Diverticular disease Acute diverticulitis Macular degeneration Seborrheic keratosis Dyslipidemia Depression Asthma COPD (chronic obstructive pulmonary disease) HTN (hypertension) Hypothyroid Fibromyalgia Lumbar spondylosis Surgical History History of colonoscopy Hx laparoscopic cholecystectomy History of surgery H/O breast biopsy History of hysterectomy History of knee replacement procedure of right knee History of knee replacement procedure of left knee Family History Father Unknown family medical history Mother Unknown family medical history Social History Household Members: Spouse Housing: House Do you presently have visiting nurse or other home services: No Alcohol intake: never Patient Tobacco Use Status: Never used Tobacco e-Cigarette/Vaping Use: Never Used Second Hand Smoke Exposure: No Advance Directives Date on File: 01/08/22 service: No Current occupational status: disabled Cognitive needs: No Hearing needs: No Vision needs: No Questionnaire Thrive Questionnaire Date Thrive assessed: 10/27/23 MCKENNA-7 AMB Questionnaire MCKENNA-7 Date MCKENNA - 7 assessed: 10/27/23 Source: Developed by Drs. Chadwick Scott, Lindsay Bender, Elliot Cox and colleagues, with an educational lucero from [employer]. Review of Systems Const Reports as per HPI Physical exam (Primary Care) Vital Signs: Last Vital Signs Pulse 76 01/02/24 10:09 BP 124/82 01/02/24 10:09 Pulse Ox 98 01/02/24 10:09 Oxygen Delivery Method Room Air 01/02/24 10:09 Tobacco/Smoking Status: Tobacco use Status Tobacco use date assessed 10/27/23 01/02/24 10:08 Patient Tobacco Use Status Never used Tobacco 01/02/24 10:08 e-Cigarette/Vaping Use Never Used 01/02/24 10:08 Thrive Assessment: Date of Thrive Assessment Date Thrive assessed 10/27/23 01/02/24 10:08 Const General: cooperative Orientation/consciousness: patient oriented x3 Resp Effort & Inspection: normal respiratory effort and Actively coughing Auscultation: rhonchi and wheezes scattered wheezes Cardio Rate: regular rate Rhythm: regular rhythm Heart sounds: S1 normal heart sound present and S2 normal heart sound present Neuro General: patient oriented x3 Psych Appearance: grossly normal Mental Status: mental status grossly normal Speech and movement: Normal speech and movement present Affect: normal affect Attitude: cooperative Thought process: Normal thought process present Thought content: Normal thought content present Insight: Good insight present (Psych) Judgement: Good judgement present (Psych) Assessment and Plan Assessment & Plan (1) Cough: Code(s): R05.9 - Cough, unspecified Plan: Chest XR ordered, zpak sent (2) HTN (hypertension): Code(s): I10 - Essential (primary) hypertension Plan: Increasing metoprolol from 12.5mg to 25mg Plan The patient agreed to the use of a medical records field technician for this encounter. Scribed for GOVIND Cruz by Shelbi Mendoza medical records field technician, on 01/02/2024 at 10:35 EST. Orders: Orders XR chest 2V Today R05.9 - Cough, unspecified Medications: New azithromycin For 250 mg dose pack: take 500 mg today (day 1), then 250 mg for 4 days (days 2-5) PO 6 tabs 0RF Changed From metoprolol succinate ER 12.5 mg (1/2 x 25 mg) PO DAILY 90 days 45 tabs 1RF To metoprolol succinate ER 25 mg PO DAILY 90 tabs 1RF 90 days Refilled bupropion HCl 300 mg PO QAM 90 tabs 1RF Coding Level of Care Code Est Pt Level 3 (95941) Diagnoses Cough R05.9 HTN (hypertension) I10
[2024-01-02 10:09] VITALS: BP 124/82; PULSE 76; O2SAT 98
== END 2024-01-02 10:44 | disposition home or self-care (01) ==
PROVIDERS: PCP Nurse Practitioner Family; Visit Provider Nurse Practitioner Family
DX: R05.9 Cough, unspecified (principal); I10 Essential (primary) hypertension
CPT/HCPCS: 99213

== ENCOUNTER 2024-01-02 10:47 | Outpatient (REF) | payer MEDICARE, OTHER, SELFPAY ==
--- NOTE | ~2024-01-02 | XR_ITS ---
EXAMINATION: XR CHEST CLINICAL INFORMATION: Cough COMPARISON: 10/22/2019 TECHNIQUE: 2 views of the chest were obtained. FINDINGS: Lungs are well-inflated and clear. Trachea is midline in position. No interstitial disease, consolidation or mass. No pleural effusion or pneumothorax. Cardiac silhouette and pulmonary vessels are normal in size. The mediastinum and piter have normal contour. Chronic degenerative narrowing of disc spaces and osteophyte formation in the lower cervical spine. Mild spondylosis of the thoracic spine. No suspicious osseous lesions. XR/XR chest 2V IMPRESSION: Lungs have a normal appearance. No acute cardiopulmonary abnormality.
== END 2024-01-02 10:48 | disposition home or self-care (01) ==
LOC: HO.HMGCX 10:47
PROVIDERS: PCP Nurse Practitioner Family; Visit Provider Nurse Practitioner Family
DX: R05.9 Cough, unspecified (principal)
CPT/HCPCS: 71046

== ENCOUNTER → 2024-01-06 08:05 | Outpatient (BNVA) | payer OTHER, SELFPAY | PROVIDERS: PCP Nurse Practitioner Family; Visit Provider Physician Assistant Surgical ==

== ENCOUNTER → 2024-01-13 07:59 | Outpatient (BNVA) | payer MEDICARE, OTHER, SELFPAY | PROVIDERS: PCP Nurse Practitioner Family; Visit Provider Physician Assistant Surgical ==

== ENCOUNTER → 2024-01-20 08:02 | Outpatient (BNVA) | payer MEDICARE, OTHER, SELFPAY | PROVIDERS: PCP Nurse Practitioner Family; Visit Provider Physician Assistant Surgical ==

== ENCOUNTER → 2024-01-27 07:50 | Outpatient (BNVA) | payer MEDICARE, OTHER, SELFPAY | PROVIDERS: PCP Nurse Practitioner Family; Visit Provider Physician Assistant Surgical ==

== ENCOUNTER → 2024-02-03 07:57 | Outpatient (BNVA) | payer MEDICARE, OTHER, SELFPAY | PROVIDERS: PCP Nurse Practitioner Family; Visit Provider Physician Assistant Surgical ==

== ENCOUNTER → 2024-02-10 08:00 | Outpatient (BNVA) | payer MEDICARE, OTHER, SELFPAY | PROVIDERS: PCP Nurse Practitioner Family; Visit Provider Physician Assistant Surgical ==

== ENCOUNTER 2024-02-23 07:39 | Outpatient (AMB) | payer MEDICARE, OTHER, SELFPAY ==
--- NOTE | 2024-02-23 07:41 | MHC.OFFVIS ---
Vital Signs 02/23/24 07:53 Height 5 ft 3.5 in Weight 192 lb BMI 33.5 BP 112/62 Blood Pressure Location Rt brachial Position Sitting Pulse 80 Pulse Oximetry (%) 95 Intake Visit Reasons: FMS Intake Note: Patient last seen 08/19/23 presents today for follow up. Allergies lactose Allergy (Unknown, Verified 02/23/24 07:43) lactose intolerant GI upset sulfamethoxazole Allergy (Unknown, Verified 02/23/24 07:43) vomiting tizanidine Allergy (Verified 02/23/24 07:43) Vomiting doxycycline Adverse Reaction (Severe, Verified 02/23/24 07:43) Diarrhea Medication List - Last Reconciled 02/23/24 by Dario Orosco MD acetaminophen (Tylenol Extra Strength) 1,000 mg PO Q6H PRN albuterol sulfate 90 mcg/actuation 2 puffs inhalation Q4-6H PRN bupropion HCl XL 300 mg PO QAM calcium carbonate (Calcium 600) 600 mg PO BID 90 days cholecalciferol (vitamin D3) 25 mcg PO DAILY 90 days coenzyme Q10 100 mg PO DAILY cyclobenzaprine 10 mg PO DAILY PRN diclofenac potassium 50 mg PO BID PRN 90 days docusate sodium (Colace) 100 mg PO BID fluticasone propion-salmeterol 500-50 mcg/dose (Wixela Inhub) 1 ea PO BID gabapentin 1,200 mg (2 x 600 mg) PO DAILY 60 days levothyroxine 150 mcg PO QAM loratadine 10 mg PO DAILY losartan 25 mg PO DAILY lutein 40 mg PO DAILY magnesium 250 mg PO DAILY metoprolol succinate ER 25 mg PO DAILY 90 days montelukast 10 mg PO DAILY 90 days multivitamin 1 tab PO DAILY rosuvastatin 20 mg PO BEDTIME 90 days sennosides (senna) 17.2 mg (2 x 8.6 mg) PO BEDTIME 30 days sumatriptan succinate (Imitrex) 25 mg PO Q2-4H PRN tiotropium bromide (Spiriva with HandiHaler) 1 cap inhalation DAILY tramadol 50 mg PO DAILY PRN vit C-E-zinc ym-dgnn-jup-zeax 250 mg-200 unit -12.5 mg-1 mg (ICaps AREDS2) caps PO HPI Comments Details: 64-year-old female with fibromyalgia and degenerative arthritis returns for follow-up Patient states that she is doing reasonably well overall. She continues to take the tramadol daily. She takes the Flexeril only as needed. Usually half a tablet. She had SI joint injection by pain management in September and it gave her long-lasting relief. She continues to have intermittent episodes of hip bursitis. Recently she has been having back spasms, she has been more active recently. Walking more and working in the yard. She recently had treatment for her dry eyes called IPL, it is relatively new therapy, nasal treatment now she no longer has to use the Restasis. States that her vision is much more clear now. COUNTS INCLUDE 234 BEDS AT THE [facility] Medical History Tubular adenoma of colon Diverticular disease Acute diverticulitis Macular degeneration Seborrheic keratosis Dyslipidemia Depression Asthma COPD (chronic obstructive pulmonary disease) HTN (hypertension) Hypothyroid Fibromyalgia Lumbar spondylosis Surgical History History of colonoscopy Hx laparoscopic cholecystectomy History of surgery H/O breast biopsy History of hysterectomy History of knee replacement procedure of right knee History of knee replacement procedure of left knee Family History Father Unknown family medical history Mother Unknown family medical history Social History Household Members: Spouse Housing: House Do you presently have visiting nurse or other home services: No Alcohol intake: never Patient Tobacco Use Status: Never used Tobacco e-Cigarette/Vaping Use: Never Used Second Hand Smoke Exposure: No Advance Directives Date on File: 01/08/22 service: No Current occupational status: disabled Cognitive needs: No Hearing needs: No Vision needs: No Review of Systems Musc Details: Muscle spasms Reports back pain and Reports arthralgias Physical Exam Const General: cooperative, healthy appearing and comfortable Nutritional Appearance: obese morbidly obese Orientation/consciousness: patient oriented x3 Limitations: no limitations HEENT Head: Yes normocephalic and Yes atraumatic Mouth: moist mucous membranes Resp Effort & Inspection: normal respiratory effort and able to speak in complete sentences Auscultation: clear to auscultation bilaterally Cardio Rate: regular rate Rhythm: regular rhythm Back/Spine/Pelvis Other: Bilateral paraspinal muscle tenderness in the lumbar area. Multiple fibromyalgia tender points No active synovitis Neuro General: patient oriented x3 Assessment & Plan Assessment & Plan (1) Lumbar spondylosis: Comment: Tramadol: 2017 to present Cyclobenzaprine: 2017 to present Gabapentin: Prior to 2012 to present Code(s): M47.816 - Spondylosis without myelopathy or radiculopathy, lumbar region Category: Medical Plan: Stable. Managing symptoms with gabapentin daily tramadol 50 mg daily and prn Flexeril (1-2 times a week)? . She is aware there is a risk of serotonin syndrome when taking Flexeril with tramadol. She is also aware that taking Flexeril and tramadol concomitantly may increase somnolence. She has been taking tramadol and Flexeril together for many years without issue and would like to continue. She continues to be active. Advised patient to consider a sleep study to rule out obstructive sleep apnea given her fibromyalgia symptoms. Follow-up in 6 months (2) Chronic SI joint pain: Code(s): M53.3 - Sacrococcygeal disorders, not elsewhere classified; G89.29 - Other chronic pain Category: Medical Plan: Improved with injection by Pain Management 09/2023. Continues to have relief Plan I spent 15 minutes reviewing patient's chart, evaluating patient, counseling patient and documenting in the chart Coding Level of Care Code Est Pt Level 3 (80783) Diagnoses Lumbar spondylosis M47.816 Chronic SI joint pain M53.3; G89.29
[2024-02-23 07:53] VITALS: BP 112/62; PULSE 80; O2SAT 95; BMI 33.5
== END 2024-02-23 08:07 | disposition home or self-care (01) ==
PROVIDERS: PCP Nurse Practitioner Family; Visit Provider Student in an Organized Health Care Education/Training Program
DX: M47.816 Spondylosis without myelopathy or radiculopathy, lumbar region (principal); M53.3 Sacrococcygeal disorders, not elsewhere classified; G89.29 Other chronic pain
CPT/HCPCS: 99213

== ENCOUNTER → 2024-02-23 07:39 | Outpatient (BNVA) | payer MEDICARE, OTHER, SELFPAY | PROVIDERS: PCP Nurse Practitioner Family; Visit Provider Student in an Organized Health Care Education/Training Program | DX: K59.04 Chronic idiopathic constipation (principal); K57.90 Diverticulosis of intestine, part unspecified, without perforation or abscess without bleeding; K58.2 Mixed irritable bowel syndrome; M79.7 Fibromyalgia; M47.816 Spondylosis without myelopathy or radiculopathy, lumbar region; M53.3 Sacrococcygeal disorders, not elsewhere classified; G89.29 Other chronic pain | CPT/HCPCS: 99212 ==

== ENCOUNTER 2024-02-23 08:41 | Outpatient (AMB) | payer MEDICARE, OTHER, SELFPAY ==
[2024-02-23 08:54] VITALS: BP 126/83; PULSE 79; BMI 33.5
--- NOTE | 2024-02-23 08:54 | A.OFFVIS_ITS ---
Vital Signs 02/23/24 08:54 Height 5 ft 3.5 in Weight 192 lb BMI 33.5 BP 126/83 Blood Pressure Location Rt brachial Position Sitting Pulse 79 Intake Visit Reasons: Follow up 6 months Intake Note: Patient in 6 months follow up of diverticulosis and CIC. CC: Patient states that she had a small attack of diverticulitis while in [place] but it resolved after taking abx. She states that she has some good days of good BMs and some not. Denies other GI symptoms. Allergies lactose Allergy (Unknown, Verified 02/23/24 08:59) lactose intolerant GI upset sulfamethoxazole Allergy (Unknown, Verified 02/23/24 08:59) vomiting tizanidine Allergy (Verified 02/23/24 08:59) Vomiting doxycycline Adverse Reaction (Severe, Verified 02/23/24 08:59) Diarrhea HPI HPI Follow up 6 months: Details: Assessment & Plan (1) Chronic idiopathic constipation: Code(s): K59.04 - Chronic idiopathic constipation Plan: She had another bout ot TICS, due to eating a whole bag of chips, which she did not know was made from popcorn. She had the augmentin I [place] and this helped her....but she was on doxy and amox at the same time and developed a justine infection. This has also effected her walking routine which helps regulate her bowels. She continues with wt mgmt but has gained wt r/t stress. Her was dx'ed with FEMI virus r/t immune suppression r/t MS medications. HE is seen at [facility]. She continues on metamucil, senna and colace. She brought me fudge!! ROV 6 mos. (2) Diverticular disease: Code(s): K57.90 - Diverticulosis of intestine, part unspecified, without perforation or abscess without bleeding Plan She had another bout ot TICS, due to eating a whole bag of chips, which she did not know was made from popcorn. She had the augmentin I [place] rx'[place] and this helped her....but she was on doxy and amox at the same time and developed a justine infection. This has also effected her walking routine which helps regulate her bowels. She continues with wt mgmt but has gained wt r/t stress. Her was dx'ed with FEMI virus r/t immune suppression r/t MS medications. HE is seen at [facility]. She continues on metamucil, senna and colace. She brought me fudge!! ROV 6 mos. Medications: New amoxicillin-pot clavulanate 875-125 mg 1 tab PO BID 60 tabs 0RF K57.90 - Diverticulosis of intestine, part unspecified, without perforation or abscess without bleeding Refilled sennosides (senna) 17.2 mg (2 x 8.6 mg) PO BEDTIME 30 days 60 caps 6RF constipation K59.04 - Chronic idiopathic constipation docusate sodium (Colace) 100 mg PO BID 60 caps 6RF TODAY'S VISIT She continues to struggle wtih her IBS and TICS - used the augmentin when she was travelling but only 4 days (educated to complete 10 days) and sicne I rx'ed 30 days she has extra dose for prn use. She still can't eat salads r/t pain and TICS and this limits her diet a great deal (wt mgmt). She just had surgery for her dry eyes to open her eye ducts and it was a great success. Will trial creon. ROV 6 weeks. [facility] Medical History Tubular adenoma of colon Diverticular disease Acute diverticulitis Macular degeneration Seborrheic keratosis Dyslipidemia Depression Asthma COPD (chronic obstructive pulmonary disease) HTN (hypertension) Hypothyroid Fibromyalgia Lumbar spondylosis Surgical History History of colonoscopy Hx laparoscopic cholecystectomy History of surgery H/O breast biopsy History of hysterectomy History of knee replacement procedure of right knee History of knee replacement procedure of left knee Family History Father Unknown family medical history Mother Unknown family medical history Social History Household Members: Spouse Housing: House Do you presently have visiting nurse or other home services: No Alcohol intake: never Patient Tobacco Use Status: Never used Tobacco e-Cigarette/Vaping Use: Never Used Second Hand Smoke Exposure: No Advance Directives Date on File: 01/08/22 service: No Current occupational status: disabled Cognitive needs: No Hearing needs: No Vision needs: No Review of Systems Const Denies fatigue, Denies fever(s), Denies night sweats, Denies poor appetite and Denies weight loss Eyes Details: glasses Reports requires corrective lenses ENT Reports Normal hearing present, Denies dental pain, Denies dysphagia, Denies hearing loss, Denies mouth pain, Denies odynophagia, Denies throat swelling, Denies tongue swelling and Reports other (Dentition adequate) Card Reports no additional complaints Resp Reports no additional complaints GI Details: Denies abdominal pain, Denies melena, Reports bloating, Denies hematochezia, Reports constipation, Denies GI cramping, Denies dysphagia, Denies excessive flatus, Denies early satiety, Denies heartburn, Reports diarrhea, Denies nausea, Denies odynophagia, Denies vomiting and Denies hematemesis Skin/Breast Denies pruritus, Denies lesions, Denies rash and Denies jaundice Neuro Reports Normal hearing present and Denies Abnormal speech present Endo Denies fatigue Aller/Immun Denies throat swelling and Denies tongue swelling Physical Exam Vital Signs: Last Vital Signs Pulse 79 02/23/24 08:54 BP 126/83 02/23/24 08:54 BMI result Body Mass Index 33.5 Const General: cooperative, no acute distress, well developed and well groomed Nutritional Appearance: well nourished and obese Orientation/consciousness: oriented to person, oriented to place and oriented to time Limitations: No language barrier HEENT Head: Yes normocephalic and Yes atraumatic Eyes General: appearance normal, both eyes and all related structures Pupils: Equal, round and reactive pupils present Neck Neck: Yes normal visual inspection and Yes no lymphadenopathy Thyroid: Thyroid normal Resp Effort & Inspection: normal respiratory effort and able to speak in complete sentences Auscultation: clear to auscultation bilaterally Cardio Rate: regular rate Rhythm: regular rhythm Heart sounds: Normal, physiologic split S2 sound present Peripheral pulses: radial pulses present and posterior tibial pulses present GI Inspection: No distended, No Abdominal panniculus present and Yes obesity Palpation (GI): Soft to palpation, nontender, no guarding, not rigid and No hepatosplenomegaly present Percussion: Yes normal to percussion Auscultation: normal bowel sounds Rectal Exam - Female: deferred Skin General skin exam: no rashes or lesions noted, turgor normal, skin not dry, no jaundice, No spider nevi and no striae Rashes: no rashes Nails: normal Neuro General: oriented to person, oriented to place and oriented to time Cranial nerves: Yes Equal, round and reactive pupils present and Yes Normal hearing present Speech: No Abnormal speech present Extrem General: Yes normal to inspection, No clubbing, No cyanosis and No edema Psych Appearance: grossly normal and well kempt Mental Status: mental status grossly normal Speech and movement: Normal speech and movement present Affect: normal affect Attitude: cooperative Thought process: Normal thought process present and not confabulating Thought content: Normal thought content present Insight: Fair insight present (Psych) and Limited insight present (Psych) Judgement: Fair judgement present (Psych) and Limited judgement present (Psych) Assessment & Plan Assessment & Plan (1) Irritable bowel syndrome with both constipation and diarrhea: Code(s): K58.2 - Mixed irritable bowel syndrome Category: Medical Plan She continues to struggle wtih her IBS and TICS - used the augmentin when she was travelling but only 4 days (educated to complete 10 days) and sicne I rx'ed 30 days she has extra dose for prn use. She still can't eat salads r/t pain and TICS and this limits her diet a great deal (wt mgmt). She just had surgery for her dry eyes to open her eye ducts and it was a great success. Will trial creon. Medications: New qlhxzb-wmjmfzmt-udhwyfu 24,000-76,000 -120,000 unit (Creon) 2 caps PO BID 120 caps 3RF 30 days K58.9 - Irritable bowel syndrome without diarrhea Coding Level of Care Code Est Pt Level 3 (95188) Diagnoses Irritable bowel syndrome with both constipation and diarrhea K58.2
== END 2024-02-23 09:30 | disposition home or self-care (01) ==
PROVIDERS: PCP Nurse Practitioner Family; Visit Provider Nurse Practitioner
DX: K58.2 Mixed irritable bowel syndrome (principal)
CPT/HCPCS: 99213

== ENCOUNTER 2024-02-29 17:15 | Outpatient (AMB) | payer MEDICARE, OTHER, SELFPAY ==
--- NOTE | 2024-04-30 15:26 | MHC.WMTHER ---
Intake Intake Visit Reasons: Group Therapy Allergies lactose Allergy (Unknown, Verified 04/19/24 09:30) lactose intolerant GI upset sulfamethoxazole Allergy (Unknown, Verified 04/19/24 09:30) vomiting tizanidine Allergy (Verified 04/19/24 09:30) Vomiting doxycycline Adverse Reaction (Severe, Verified 04/19/24 09:30) Diarrhea PFSH Medical History Abdominal pain Rash Contact dermatitis Encounter for medication monitoring Upper respiratory tract infection Impacted cerumen, bilateral Fatigue Dietary counseling Screening for cervical cancer Physical exam Tubular adenoma of colon Diverticular disease Acute diverticulitis Macular degeneration Seborrheic keratosis Dyslipidemia Depression Asthma COPD (chronic obstructive pulmonary disease) HTN (hypertension) Hypothyroid Fibromyalgia Lumbar spondylosis Surgical History History of colonoscopy Hx laparoscopic cholecystectomy History of surgery H/O breast biopsy History of hysterectomy History of knee replacement procedure of right knee History of knee replacement procedure of left knee Family History Father Unknown family medical history Mother Unknown family medical history Social History Household Members: Spouse Housing: House Do you presently have visiting nurse or other home services: No Alcohol intake: never Patient Tobacco Use Status: Never used Tobacco e-Cigarette/Vaping Use: Never Used Second Hand Smoke Exposure: No Advance Directives Date on File: 01/08/22 service: No Current occupational status: disabled Cognitive needs: No Hearing needs: No Vision needs: No Behavioral Health Assessment Weight Management Therapy Therapy Notes Details Group therapy on getting back on track, top excuses, mindset shifts. Pt shared recent struggles, was engaged and supportive to others. Assessment & Plan Assessment & Plan (1) Unspecified nonpsychotic mental disorder: Code(s): F48.9 - Nonpsychotic mental disorder, unspecified (2) Obesity: Code(s): E66.9 - Obesity, unspecified Plan Patient is looking for therapeutic support to improve her emotional and physical health. She has been struggling with her weight and several medical conditions that result in sig. stress. Pt would benefit from group therapy. Coding Level of Care Code Grp Psych (33912) Diagnoses Unspecified nonpsychotic mental disorder F48.9 Obesity E66.9 Time Spent (min) 60
== END 2024-02-29 18:15 | disposition home or self-care (01) ==
PROVIDERS: PCP Nurse Practitioner Family; Visit Provider Counselor Mental Health
DX: F48.9 Nonpsychotic mental disorder, unspecified (principal); E66.9 Obesity, unspecified; Z68.33 Body mass index [BMI] 33.0-33.9, adult

== ENCOUNTER → 2024-02-29 19:50 | Outpatient (BNVA) | payer MEDICARE, OTHER, SELFPAY | PROVIDERS: PCP Nurse Practitioner Family; Visit Provider Counselor Mental Health | DX: Z71.3 Dietary counseling and surveillance (principal); F48.9 Nonpsychotic mental disorder, unspecified; E66.9 Obesity, unspecified; Z90.49 Acquired absence of other specified parts of digestive tract | CPT/HCPCS: 90853 ==

== ENCOUNTER → 2024-03-02 07:59 | Outpatient (BNVA) | payer MEDICARE, OTHER, SELFPAY | PROVIDERS: PCP Nurse Practitioner Family; Visit Provider Surgery ==

== ENCOUNTER 2024-03-13 07:34 | Outpatient (REF) | payer MEDICARE, OTHER, SELFPAY ==
[2024-03-13 07:43] LABS: MANUAL DIFF FLAG NO
[2024-03-13 08:06] LABS: Basophils Percent Auto 0.2 % (0-2); Hematocrit 42.6 % (37.0-47.0); Hemoglobin 14.3 g/dl (12.0-16.0); Imm Gran Abs Auto 0.05 X10*3/uL (0.00-0.03); Imm Gran Pct Auto 0.5 % (0.0-0.4); Lymphocytes Absolute Auto 1.8 X10*3/uL (1.2-4.9); Lymphocytes Percent Auto 15.9 % (20-40); Mean Corpuscular HGB Conc 33.6 g/dl (31.0-35.0); Mean Corpuscular Hemoglobin 28.9 pg (27.0-33.0); Mean Corpuscular Volume 86.1 fL (80.0-98.0); Mean Platelet Volume 8.6 fL (9.4-12.3); Monocytes Absolute Auto 0.5 X10*3/uL (0.1-1.2); Monocytes Percent Auto 4.2 % (2-11); Neutrophils Absolute Auto 8.7 x10*3/uL (2.0-8.3); Neutrophils Percent Auto 79.2 % (45-73); Platelet Count 380 X10*3/uL (160-400); Red Blood Count 4.95 X10*6/uL (4.20-5.50); Red Cell Distribution Width 13.2 % (11.0-16.0)
[2024-03-13 08:48] LABS: Alanine Aminotransferase 40 U/L (0-31); Albumin Level 4.2 g/dL (3.5-5.0); Alkaline Phosphatase 65 U/L (39-117); Anion Gap 14 (12-20); Aspartate Amino Transferase 27 U/L (5-31); Bilirubin Total 0.3 mg/dL (0.0-1.0); Blood Urea Nitrogen 19 mg/dL (9-16); Calcium 9.9 mg/dL (8.4-10.2); Carbon Dioxide 29 mmol/L (22-29); Chloride 109 mmol/L (96-108); Estimated Glomerular Filt Rate > 60; Glucose Fasting 110 mg/dL (60-99); Potassium 4.5 mmol/L (3.3-5.1); Sodium 147 mmol/L (135-145); Total Protein 6.8 g/dL (6.5-8.0)
[2024-03-13 09:05] LABS: TSH reflex Free T4 0.02 uIU/mL (0.32-4.0)
[2024-03-13 11:26] LABS: Free T4 (Free Thyroxine) 1.35 ng/dL (0.71-1.85)
== END 2024-03-13 07:35 | disposition home or self-care (01) ==
LOC: HO.LAB 07:34
PROVIDERS: PCP Nurse Practitioner Family; Visit Provider Nurse Practitioner Family
DX: I10 Essential (primary) hypertension (principal)
CPT/HCPCS: 36415; 80053; 84439; 84443; 85025

== ENCOUNTER 2024-03-14 17:15 | Outpatient (AMB) | payer MEDICARE, OTHER, SELFPAY ==
--- NOTE | 2024-04-30 15:11 | MHC.WMTHER ---
Intake Intake Visit Reasons: Group Therapy Allergies lactose Allergy (Unknown, Verified 04/19/24 09:30) lactose intolerant GI upset sulfamethoxazole Allergy (Unknown, Verified 04/19/24 09:30) vomiting tizanidine Allergy (Verified 04/19/24 09:30) Vomiting doxycycline Adverse Reaction (Severe, Verified 04/19/24 09:30) Diarrhea PFSH Medical History Abdominal pain Rash Contact dermatitis Encounter for medication monitoring Upper respiratory tract infection Impacted cerumen, bilateral Fatigue Dietary counseling Screening for cervical cancer Physical exam Tubular adenoma of colon Diverticular disease Acute diverticulitis Macular degeneration Seborrheic keratosis Dyslipidemia Depression Asthma COPD (chronic obstructive pulmonary disease) HTN (hypertension) Hypothyroid Fibromyalgia Lumbar spondylosis Surgical History History of colonoscopy Hx laparoscopic cholecystectomy History of surgery H/O breast biopsy History of hysterectomy History of knee replacement procedure of right knee History of knee replacement procedure of left knee Family History Father Unknown family medical history Mother Unknown family medical history Social History Household Members: Spouse Housing: House Do you presently have visiting nurse or other home services: No Alcohol intake: never Patient Tobacco Use Status: Never used Tobacco e-Cigarette/Vaping Use: Never Used Second Hand Smoke Exposure: No Advance Directives Date on File: 01/08/22 service: No Current occupational status: disabled Cognitive needs: No Hearing needs: No Vision needs: No Behavioral Health Assessment Weight Management Therapy Therapy Notes Details Group therapy, discussed different struggles from past week, consistency, motivation, and barriers. Patient was engaged and properly participated. Assessment & Plan Assessment & Plan (1) Unspecified nonpsychotic mental disorder: Code(s): F48.9 - Nonpsychotic mental disorder, unspecified (2) Obesity: Code(s): E66.9 - Obesity, unspecified Plan Patient is looking for therapeutic support to improve her emotional and physical health. She has been struggling with her weight and several medical conditions that result in sig. stress. Pt would benefit from group therapy. Coding Level of Care Code Grp Psych (23453) Diagnoses Unspecified nonpsychotic mental disorder F48.9 Obesity E66.9 Time Spent (min) 60
== END 2024-03-14 18:15 | disposition home or self-care (01) ==
LOC: HO.HBST 03-15 08:38
PROVIDERS: PCP Nurse Practitioner Family; Visit Provider Counselor Mental Health
DX: F48.9 Nonpsychotic mental disorder, unspecified (principal); E66.9 Obesity, unspecified; Z68.33 Body mass index [BMI] 33.0-33.9, adult

== ENCOUNTER → 2024-03-14 17:15 | Outpatient (BNVA) | payer MEDICARE, OTHER, SELFPAY | PROVIDERS: PCP Nurse Practitioner Family; Visit Provider Counselor Mental Health | DX: E66.9 Obesity, unspecified (principal); F48.9 Nonpsychotic mental disorder, unspecified; Z90.49 Acquired absence of other specified parts of digestive tract | CPT/HCPCS: 90853 ==

== ENCOUNTER 2024-03-15 10:00 | Outpatient (AMB) | payer MEDICARE, OTHER, SELFPAY ==
--- NOTE | 2024-03-15 10:01 | MHC.OFFVISWM ---
VS Expanded 03/15/24 10:03 Height 5 ft 3.5 in Weight 190 lb BMI 33.1 Intake Visit Reasons: (telephone) follow up [facility] Allergies lactose Allergy (Unknown, Verified 02/23/24 08:59) lactose intolerant GI upset sulfamethoxazole Allergy (Unknown, Verified 02/23/24 08:59) vomiting tizanidine Allergy (Verified 02/23/24 08:59) Vomiting doxycycline Adverse Reaction (Severe, Verified 02/23/24 08:59) Diarrhea Medication List - Last Reconciled 03/15/24 by BRENDA Cooley acetaminophen (Tylenol Extra Strength) 1,000 mg PO Q6H PRN albuterol sulfate 90 mcg/actuation 2 puffs inhalation Q4-6H PRN bupropion HCl XL 300 mg PO QAM calcium carbonate (Calcium 600) 600 mg PO BID 90 days cholecalciferol (vitamin D3) 25 mcg PO DAILY 90 days coenzyme Q10 100 mg PO DAILY cyclobenzaprine 10 mg PO DAILY PRN diclofenac potassium 50 mg PO BID PRN 90 days docusate sodium (Colace) 100 mg PO BID fluticasone propion-salmeterol 500-50 mcg/dose (Wixela Inhub) 1 ea PO BID PRN gabapentin 1,200 mg (2 x 600 mg) PO DAILY 60 days levothyroxine 125 mcg PO QAM 90 days slymuo-vhwdpoip-sxlxqxg 24,000-76,000 -120,000 unit (Creon) 2 caps PO BID 30 days loratadine 10 mg PO DAILY losartan 25 mg PO DAILY lutein 40 mg PO DAILY magnesium 250 mg PO DAILY metoprolol succinate ER 25 mg PO DAILY 90 days montelukast 10 mg PO DAILY 90 days multivitamin 1 tab PO DAILY psyllium husk (Metamucil) 2 tsp PO DAILY rosuvastatin 20 mg PO BEDTIME 90 days sennosides (senna) 17.2 mg (2 x 8.6 mg) PO BEDTIME 30 days sumatriptan succinate (Imitrex) 25 mg PO Q2-4H PRN tiotropium bromide (Spiriva with HandiHaler) 1 cap inhalation DAILY tramadol 50 mg PO DAILY PRN vit C-E-zinc jk-fquo-djw-zeax 250 mg-200 unit -12.5 mg-1 mg (ICaps AREDS2) 1 cap PO DAILY HPI Comments Details: Pt presents in followup for [facility], visit #6. Starting weight: 203 Weight at last visit: 190 Weight today: 190 Total weight change since starting program: -13 Continues to help her with treatment for MS/infusion. He tested positive for PML and receiving infusions in [place], has been traveling a lot for that. Takes losartan only when needed, not every day, BP control has been good. Has started with support groups, finding it helpful Current meal plan: Pure protein shake, 1 scoop of powder (25g protein) with a small amount of coffee, greens powder, collagen (9g protein) and metamucil Snack of Clementines egg, or cottage cheese no longer having rice cakes with PB as a snack- has a frozen protein bar Dinner 3 eggs, 1 slice of white bread, or omelet with cheese/ham/veggies, or bunless burder with a salad or chicken on salad, sometimes has pizza but will only have one piece sometimes will have a regular lowfat yogurt with blueberries and a small amount of granola sometimes has a fudgesicle after dinner drinking adequate fluids feels frustrated by slow pace of weight loss Exercise: Kandis Rose, 2 miles usually every day has started increasing intensity, doing 15 minute miles [facility] Medical History Tubular adenoma of colon Diverticular disease Acute diverticulitis Macular degeneration Seborrheic keratosis Dyslipidemia Depression Asthma COPD (chronic obstructive pulmonary disease) HTN (hypertension) Hypothyroid Fibromyalgia Lumbar spondylosis Surgical History History of colonoscopy Hx laparoscopic cholecystectomy History of surgery H/O breast biopsy History of hysterectomy History of knee replacement procedure of right knee History of knee replacement procedure of left knee Family History Father Unknown family medical history Mother Unknown family medical history Social History Household Members: Spouse Housing: House Do you presently have visiting nurse or other home services: No Alcohol intake: never Patient Tobacco Use Status: Never used Tobacco e-Cigarette/Vaping Use: Never Used Second Hand Smoke Exposure: No Advance Directives Date on File: 01/08/22 service: No Current occupational status: disabled Cognitive needs: No Hearing needs: No Vision needs: No Telehealth Telehealth Telehealth Platform: Telephone Location of provider rendering services: practice address Location of patient: address on file Patient Identification confirmed using: Name, : Yes Telehealth method: voice only Patient verbally consented to treatment: Yes Patient verbally consented to billing insurance company: Yes Patient informed of any privacy concerns related to visit: Yes Minutes spent on Phone/Video with Pt.: 15 Assessment & Plan Assessment & Plan (1) Obesity: Code(s): E66.9 - Obesity, unspecified Category: Medical Plan Will adjust meal plan to ensure adequate protein, eliminate foods that are hindering weight loss: breakfast- Pure protein shake with half scoop (12.5g), collagen (9g), greens powder, metamucil lunch- 4 forks protein (2 eggs, cottage cheese, or belizean yogurt) with fruit or veg snack- Pure protein bar dinner- 6 forks protein with salad or veg after dinner may have sugar free fudgesicle continue exercise at increased intensity RTC 2 months, encouraged pt to reach out via text or portal with any questions between appts. Patient is obese and is not considered stable at this time. I spent a total of 30 minutes reviewing/updating records, examining the patient and counseling the patient on weight management as detailed above.
[2024-03-15 10:03] VITALS: BMI 33.1
== END 2024-03-15 10:30 | disposition home or self-care (01) ==
LOC: HO.HBS 13:19
PROVIDERS: PCP Nurse Practitioner Family; Visit Provider Physician Assistant Surgical
DX: E66.9 Obesity, unspecified (principal); Z68.33 Body mass index [BMI] 33.0-33.9, adult
CPT/HCPCS: 99442

== ENCOUNTER → 2024-03-15 10:00 | Outpatient (BNVA) | payer MEDICARE, OTHER, SELFPAY | PROVIDERS: PCP Nurse Practitioner Family; Visit Provider Physician Assistant Surgical | DX: E66.9 Obesity, unspecified (principal) ==

== ENCOUNTER → 2024-03-16 08:04 | Outpatient (BNVA) | payer MEDICARE, OTHER, SELFPAY | PROVIDERS: PCP Nurse Practitioner Family; Visit Provider Physician Assistant Surgical ==

== ENCOUNTER 2024-03-28 08:22 | Outpatient (REF) | payer MEDICARE, OTHER, SELFPAY ==
[2024-03-28 17:11] LABS: Urine Cytology See Pathology rpt
== END 2024-03-28 08:23 | disposition home or self-care (01) ==
LOC: HO.LNP 08:22
PROVIDERS: PCP Nurse Practitioner Family; Visit Provider Nurse Practitioner Family
DX: R31.29 Other microscopic hematuria (principal); Z87.891 Personal history of nicotine dependence
CPT/HCPCS: 81003; 88112; 99212

== ENCOUNTER 2024-03-28 08:22 | Outpatient (AMB) | payer MEDICARE, OTHER, SELFPAY ==
--- NOTE | 2024-03-28 08:29 | MHC.OFFVIS ---
Intake Visit Reasons: 1y/UA Intake Note: Patient presents for follow up visit on: microscopic hematuria Urology Medications: none Blood Thinner: none Smoker: quit 1993 (socially) Housing Management Representative Required: No Accompanied by: Self / Same As Patient Allergies lactose Allergy (Unknown, Verified 03/28/24 08:51) lactose intolerant GI upset sulfamethoxazole Allergy (Unknown, Verified 03/28/24 08:51) vomiting tizanidine Allergy (Verified 03/28/24 08:51) Vomiting doxycycline Adverse Reaction (Severe, Verified 03/28/24 08:51) Diarrhea Medication List - Last Reconciled 03/28/24 by DANNIE Locke-THEODORE acetaminophen (Tylenol Extra Strength) 1,000 mg PO Q6H PRN albuterol sulfate 90 mcg/actuation 2 puffs inhalation Q4-6H PRN bupropion HCl XL 300 mg PO QAM calcium carbonate (Calcium 600) 600 mg PO BID 90 days cholecalciferol (vitamin D3) 25 mcg PO DAILY 90 days coenzyme Q10 100 mg PO DAILY cyclobenzaprine 10 mg PO DAILY PRN diclofenac potassium 50 mg PO BID PRN 90 days docusate sodium (Colace) 100 mg PO BID fluticasone propion-salmeterol 500-50 mcg/dose (Wixela Inhub) 1 ea PO BID PRN gabapentin 1,200 mg (2 x 600 mg) PO DAILY 60 days levothyroxine 125 mcg PO QAM 90 days qeaedr-cnzsbpca-ygoexsj 24,000-76,000 -120,000 unit (Creon) 2 caps PO BID 30 days loratadine 10 mg PO DAILY losartan 25 mg PO DAILY lutein 40 mg PO DAILY magnesium 250 mg PO DAILY metoprolol succinate ER 25 mg PO DAILY 90 days montelukast 10 mg PO DAILY 90 days multivitamin 1 tab PO DAILY psyllium husk (Metamucil) 2 tsp PO DAILY rosuvastatin 20 mg PO BEDTIME 90 days sennosides (senna) 17.2 mg (2 x 8.6 mg) PO BEDTIME 30 days sumatriptan succinate (Imitrex) 25 mg PO Q2-4H PRN tiotropium bromide (Spiriva with HandiHaler) 1 cap inhalation DAILY tramadol 50 mg PO DAILY PRN vit C-E-zinc qc-chma-nsr-zeax 250 mg-200 unit -12.5 mg-1 mg (ICaps AREDS2) 1 cap PO DAILY HPI Comments Details: Radha is a pleasant 64-year-old female patient of Dr. Rocha. She presents to the office today of her microscopic hematuria. She has a past medical history of asthma, COPD, depression, dyslipidemia, fibromyalgia, hypertension, hypothyroid, and macular degeneration. In discussion with the patient today she reports to be doing and feeling well. During last office visit here approximately 1 year ago patient underwent an office cystoscopy with Theresa that noted no suspicious bladder lesions. She currently denies any bothersome urinary issues or concerns. 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 In office urinalysis results reviewed with the patient today. No microscopic hematuria noted. She reports having quit cigarette smoking approximately 30 -35 years go. When asked she denies urinary urgency, urinary frequency, incontinence, nocturia, hematuria, dysuria, foul smelling urine, changes to urinary stream, flank pain, fever, and or chills. She is happy with her current voiding parameters. Previous workup has included a CT urogram 01/23 that no bilateral hydronephrosis or nephrolithiasis. No suspicious renal mass. The bladder is unremarkable. Urine cytology 01/23 and 02/22 Negative for high-grade urothelial carcinoma. [facility] Medical History Tubular adenoma of colon Diverticular disease Acute diverticulitis Macular degeneration Seborrheic keratosis Dyslipidemia Depression Asthma COPD (chronic obstructive pulmonary disease) HTN (hypertension) Hypothyroid Fibromyalgia Lumbar spondylosis Surgical History History of colonoscopy Hx laparoscopic cholecystectomy History of surgery H/O breast biopsy History of hysterectomy History of knee replacement procedure of right knee History of knee replacement procedure of left knee Family History Father Unknown family medical history Mother Unknown family medical history Social History Household Members: Spouse Housing: House Do you presently have visiting nurse or other home services: No Alcohol intake: never Patient Tobacco Use Status: Never used Tobacco e-Cigarette/Vaping Use: Never Used Second Hand Smoke Exposure: No Advance Directives Date on File: 01/08/22 service: No Current occupational status: disabled Cognitive needs: No Hearing needs: No Vision needs: No Review of Systems Const All systems reviewed & are unremarkable except as noted in HPI and below Reports as per HPI Eyes Reports as per HPI ENT Reports no additional complaints Card Reports as per HPI Resp Reports as per HPI GI Reports no additional complaints Reports as per HPI Musc Reports no additional complaints Neuro Reports as per HPI Psych Reports no additional complaints Endo Reports no additional complaints Alan/Lymph Reports no additional complaints Aller/Immun Reports no additional complaints Physical Exam Const General: cooperative, healthy appearing, comfortable, no acute distress, well developed, alert and awake Orientation/consciousness: patient oriented x3 Limitations: no limitations HEENT Head: Yes normal to inspection, Yes normocephalic and Yes atraumatic Ears: hearing grossly normal bilaterally Eyes General: appearance normal, both eyes and all related structures Neck Neck: Yes normal visual inspection and Yes trachea midline Chest Chest palpation & inspection: normal inspection of the chest Resp Effort & Inspection: normal respiratory effort and able to speak in complete sentences Cardio Rate: regular rate GI Inspection: Yes normal to inspection General: Yes no CVA tenderness Back/Spine/Pelvis Back: no CVA tenderness Skin General skin exam: no rashes or lesions noted Neuro General: patient oriented x3 Extrem General: Yes normal to inspection Psych Appearance: grossly normal and well kempt Mental Status: mental status grossly normal Speech and movement: Normal speech and movement present and Clear speech present Affect: normal affect Attitude: cooperative Thought process: Normal thought process present Thought content: Normal thought content present Insight: Fair insight present (Psych) Judgement: Fair judgement present (Psych) Results AMB Urinalysis, Automated UA Leukoctes 15 Darling/uL Last Edit by [employer] on 03/28/24 08:54 UA Nitrite Negative Last Edit by [employer] on 03/28/24 08:54 UA Urobilinogen 0.2 mg/dL Last Edit by [email or web address] on 03/28/24 08:54 UA Protein 15 mg/dL Last Edit by [email or web address] Josiah on 03/28/24 08:54 UA pH 6.0 Last Edit by [email or web address] Josiah on 03/28/24 08:54 UA Blood 0 Osvaldo/uL Last Edit by Quincuspeyman Rahman on 03/28/24 08:54 UA Specific [place] 1.015 Last Edit by Mariano Rahman on 03/28/24 08:54 UA Ketone Negative Last Edit by Mariano Rahman on 03/28/24 08:54 UA Bilirubin 0 mg/dL Last Edit by Mariano Rahman on 03/28/24 08:54 UA Glucose 0 mg/dL Last Edit by Mariano Rahman on 03/28/24 08:54 Results Reviewed Results Reviewed: Laboratory Last Values Urine pH (Auto) 6.0 03/28/24 08:53 Specific [place] (Auto) 1.015 03/28/24 08:53 Urine Protein (Auto) 15 mg/dL 03/28/24 08:53 Glucose (UA)(Auto) 0 mg/dL 03/28/24 08:53 Urine Ketones (Auto) Negative 03/28/24 08:53 Urine Blood (Auto) 0 Osvaldo/uL 03/28/24 08:53 Urine Nitrite (Auto) Negative 03/28/24 08:53 Urine Bilirubin (Auto) 0 mg/dL 03/28/24 08:53 Urine Urobilinogen (Auto) 0.2 mg/dL 03/28/24 08:53 Leukocyte Esterase (Auto) 15 Darling/uL 03/28/24 08:53 Assessment & Plan Assessment & Plan (1) History of cigarette smoking: Code(s): Z87.891 - Personal history of nicotine dependence Category: Social Hx (2) Microhematuria: Code(s): R31.29 - Other microscopic hematuria Category: Medical Plan In office urinalysis results reviewed with the patient today; as noted above; will send for urine cytology. Patient currently denies any bothersome urinary issues or concerns. She reports be happy with current voiding parameters. Will continue with surveillance monitoring of microscopic hematuria in the setting of previous nicotine dependence. Follow-up in 1 year with urinalysis; or sooner with any issues, concerns, and or questions. Orders: Orders Urine Cytology 03/28/24 R31.29 - Other microscopic hematuria AMB Urinalysis Automated 03/28/24 Z13.9 - Encounter for screening, unspecified Patient Instructions: The patient had an opportunity to ask questions regarding the treatment plan. All questions were answered. Physical exam, labs, and imaging were discussed and reviewed in detail. As well as risks, benefits, and discussion of treatment choices. No major barriers to understanding were identified. The patient expressed understanding and agreement with the above treatment plan. The patient was made aware they should contact our office by phone for worsening of their current condition, the appearance of new symptoms, or with any questions or concerns. Compliance is encouraged with any medications and follow up testing that is ordered. It is a privilege to be allowed the opportunity to participate in? your urological care.? Again, if you have any questions or concerns If you have any questions or concerns please do not hesitate to contact me. The office is [phone]. This note is constructed using voice recognition software. While every effort has been made to ensure accuracy tube splicer errors may have been included. Yours sincerely, JOEL Locke Coding Level of Care Code Est Pt Level 3 (81507) Diagnoses History of cigarette smoking Z87.891 Microhematuria R31.29
== END 2024-03-28 09:10 | disposition home or self-care (01) ==
PROVIDERS: PCP Nurse Practitioner Family; Visit Provider Nurse Practitioner Family
DX: Z87.891 Personal history of nicotine dependence (principal); R31.29 Other microscopic hematuria
CPT/HCPCS: 99213

== ENCOUNTER → 2024-03-30 07:55 | Outpatient (BNVA) | payer MEDICARE, OTHER, SELFPAY | PROVIDERS: PCP Nurse Practitioner Family; Visit Provider Physician Assistant Surgical ==

== ENCOUNTER → 2024-04-06 07:56 | Outpatient (BNVA) | payer MEDICARE, OTHER, SELFPAY | PROVIDERS: PCP Nurse Practitioner Family; Visit Provider Surgery ==

== ENCOUNTER 2024-04-19 09:16 | Outpatient (AMB) | payer MEDICARE, OTHER, SELFPAY ==
--- NOTE | 2024-04-19 09:19 | A.OFFVIS_ITS ---
Vital Signs 04/19/24 09:24 Height 5 ft 3.5 in Weight 190 lb BMI 33.1 BP 153/89 H Blood Pressure Location Rt brachial Position Sitting Pulse 69 Intake Visit Reasons: 6 week follow up Intake Note: Radha presents to in office today in follow up of IBS. CC: Patient states that she came off the Creon because she could not control her bowels and her sugars came up. She is taking Metamucil and prune juice and it has been helping well per patient. Patient c/o lower back pain s/p fall about a week ago. [employer] Required: No Accompanied by: Self / Same As Patient Allergies lactose Allergy (Unknown, Verified 04/19/24 09:30) lactose intolerant GI upset sulfamethoxazole Allergy (Unknown, Verified 04/19/24 09:30) vomiting tizanidine Allergy (Verified 04/19/24 09:30) Vomiting doxycycline Adverse Reaction (Severe, Verified 04/19/24 09:30) Diarrhea HPI HPI 6 week follow up: Details: Assessment & Plan (1) Chronic idiopathic constipation: Code(s): K59.04 - Chronic idiopathic constipation Plan: She had another bout ot TICS, due to eating a whole bag of chips, which she did not know was made from popcorn. She had the augmentin I had rx'ed in [place] and this helped her....but she was on doxy and amox at the same time and developed a justine infection. This has also effected her walking routine which helps regulate her bowels. She continues with wt mgmt but has gained wt r/t stress. Her was dx'ed with FEMI virus r/t immune suppression r/t MS medications. HE is seen at [facility]. She continues on metamucil, senna and colace. She brought me fudge!! ROV 6 mos. (2) Diverticular disease: Code(s): K57.90 - Diverticulosis of intestine, part unspecified, without perforation or abscess without bleeding Plan She had another bout ot TICS, due to eating a whole bag of chips, which she did not know was made from popcorn. She had the augmentin I had rx'ed in [place] and this helped her....but she was on doxy and amox at the same time and developed a justine infection. This has also effected her walking routine which helps regulate her bowels. She continues with wt mgmt but has gained wt r/t stress. Her was dx'ed with FEMI virus r/t immune suppression r/t MS medications. HE is seen at [facility]. She continues on metamucil, senna and colace. She brought me fudge!! ROV 6 mos. Medications: New amoxicillin-pot clavulanate 875-125 mg 1 tab PO BID 60 tabs 0RF K57.90 - Diverticulosis of intestine, part unspecified, without perforation or abscess without bleeding Refilled sennosides (senna) 17.2 mg (2 x 8.6 mg) PO BEDTIME 30 days 60 caps 6RF constipation K59.04 - Chronic idiopathic constipation docusate sodium (Colace) 100 mg PO BID 60 caps 6RF TODAY'S VISIT She is doing very well!! She did not do well with the creon, it caused diarrhea and increased her BS. She is now adding prunes to her regimen and this along with the senna and colace is working well. She has not needed the augmentin, but we will send a refill. She fell on her back! she has been having back spasms. ROV 6 mos. [facility] Medical History Abdominal pain Rash Contact dermatitis Encounter for medication monitoring Upper respiratory tract infection Impacted cerumen, bilateral Fatigue Dietary counseling Screening for cervical cancer Physical exam Tubular adenoma of colon Diverticular disease Acute diverticulitis Macular degeneration Seborrheic keratosis Dyslipidemia Depression Asthma COPD (chronic obstructive pulmonary disease) HTN (hypertension) Hypothyroid Fibromyalgia Lumbar spondylosis Surgical History History of colonoscopy Hx laparoscopic cholecystectomy History of surgery H/O breast biopsy History of hysterectomy History of knee replacement procedure of right knee History of knee replacement procedure of left knee Family History Father Unknown family medical history Mother Unknown family medical history Social History Household Members: Spouse Housing: House Do you presently have visiting nurse or other home services: No Alcohol intake: never Patient Tobacco Use Status: Never used Tobacco e-Cigarette/Vaping Use: Never Used Second Hand Smoke Exposure: No Advance Directives Date on File: 01/08/22 service: No Current occupational status: disabled Cognitive needs: No Hearing needs: No Vision needs: No Review of Systems Const Denies fatigue, Denies fever(s), Denies night sweats, Denies poor appetite and Denies weight loss Eyes Details: glasses Reports requires corrective lenses ENT Reports Normal hearing present, Denies dental pain, Denies dysphagia, Denies hearing loss, Denies mouth pain, Denies odynophagia, Denies throat swelling, Denies tongue swelling and Reports other (Dentition adequate) Card Reports no additional complaints Resp Reports no additional complaints GI Details: Denies abdominal pain, Denies melena, Denies bloating, Denies hematochezia, Reports constipation, Denies GI cramping, Denies dysphagia, Denies excessive fl atus, Denies early satiety, Denies heartburn, Denies diarrhea, Denies nausea, Denies odynophagia, Denies vomiting and Denies hematemesis Skin/Breast Denies pruritus, Denies lesions, Denies rash and Denies jaundice Neuro Reports Normal hearing present and Denies Abnormal speech present Endo Denies fatigue Aller/Immun Denies throat swelling and Denies tongue swelling Physical Exam Vital Signs: Last Vital Signs Pulse 69 04/19/24 09:24 BP 153/89 H 04/19/24 09:24 BMI result Body Mass Index 33.1 Const General: cooperative, no acute distress, well developed and well groomed Nutritional Appearance: well nourished and obese Orientation/consciousness: oriented to person, oriented to place and oriented to time Limitations: No language barrier HEENT Head: Yes normocephalic and Yes atraumatic Eyes General: appearance normal, both eyes and all related structures Pupils: Equal, round and reactive pupils present Neck Neck: Yes normal visual inspection and Yes no lymphadenopathy Thyroid: Thyroid normal Resp Effort & Inspection: normal respiratory effort and able to speak in complete sentences Auscultation: clear to auscultation bilaterally Cardio Rate: regular rate Rhythm: regular rhythm Heart sounds: Normal, physiologic split S2 sound present Peripheral pulses: radial pulses present and posterior tibial pulses present GI Inspection: No distended and No Abdominal panniculus present Palpation (GI): Soft to palpation, nontender, no guarding, not rigid and No hepatosplenomegaly present Percussion: Yes normal to percussion Auscultation: normal bowel sounds Rectal Exam - Female: deferred Skin General skin exam: no rashes or lesions noted, turgor normal, skin not dry, no jaundice, No spider nevi and no striae Rashes: no rashes Nails: normal Neuro General: oriented to person, oriented to place and oriented to time Cranial nerves: Yes Equal, round and reactive pupils present and Yes Normal hearing present Speech: No Abnormal speech present Extrem General: Yes normal to inspection, No clubbing, No cyanosis and No edema Psych Appearance: grossly normal and well kempt Mental Status: mental status grossly normal Speech and movement: Normal speech and movement present Affect: normal affect Attitude: cooperative Thought process: Normal thought process present and not confabulating Thought content: Normal thought content present Insight: Fair insight present (Psych) Judgement: Fair judgement present (Psych) Assessment & Plan Assessment & Plan (1) Chronic idiopathic constipation: Code(s): K59.04 - Chronic idiopathic constipation Category: Medical (2) History of diverticulitis: Code(s): Z87.19 - Personal history of other diseases of the digestive system Category: Medical (3) Irritable bowel syndrome with both constipation and diarrhea: Code(s): K58.2 - Mixed irritable bowel syndrome Category: Medical Plan She is doing very well!! She did not do well with the creon, it caused diarrhea and increased her BS. She is now adding prunes to her regimen and this along with the senna and colace is working well. She has not needed the augmentin, but we will send a refill. She fell on her back! she has been having back spasms. ROV 6 mos. Medications: New amoxicillin-pot clavulanate 875-125 mg 1 tab PO BID 20 tabs 0RF Refilled sennosides (senna) 17.2 mg (2 x 8.6 mg) PO BEDTIME 60 caps 6RF constipation 30 days K59.04 - Chronic idiopathic constipation Discontinued mcgjtk-welvkmzg-ueedupl 24,000-76,000 -120,000 unit Discontinued Reason: Doctor's Order 2 caps PO BID 30 days 120 caps 3RF K58.9 - Irritable bowel syndrome without diarrhea Coding Level of Care Code Est Pt Level 3 (66415) Diagnoses Chronic idiopathic constipation K59.04 History of diverticulitis Z87.19 Irritable bowel syndrome with both constipation and diarrhea K58.2
[2024-04-19 09:24] VITALS: BP 153/89; PULSE 69; BMI 33.1
== END 2024-04-19 09:50 | disposition home or self-care (01) ==
PROVIDERS: PCP Nurse Practitioner Family; Visit Provider Nurse Practitioner
DX: K59.04 Chronic idiopathic constipation (principal); Z87.19 Personal history of other diseases of the digestive system; K58.2 Mixed irritable bowel syndrome
CPT/HCPCS: 99213

== ENCOUNTER → 2024-04-19 09:16 | Outpatient (BNVA) | payer MEDICARE, OTHER, SELFPAY | PROVIDERS: PCP Nurse Practitioner Family; Visit Provider Nurse Practitioner | DX: K59.04 Chronic idiopathic constipation (principal); K58.2 Mixed irritable bowel syndrome; Z87.19 Personal history of other diseases of the digestive system | CPT/HCPCS: 99212 ==

== ENCOUNTER → 2024-04-27 07:50 | Outpatient (BNVA) | payer MEDICARE, OTHER, SELFPAY | PROVIDERS: PCP Nurse Practitioner Family; Visit Provider Physician Assistant Surgical ==

== ENCOUNTER 2024-05-09 07:11 | Outpatient (REF) | payer MEDICARE, OTHER, SELFPAY ==
[2024-05-09 10:23] LABS: Appearance Urine Clear; Color Urine Dark Yellow; Glucose Urine UA Negative (Negative); Leukocyte Esterase Urine Trace (Negative); Nitrite Urine Negative (Negative); Specific Gravity - Urine 1.025 (1.005-1.025); UMIC TRIGGER UACC YES; Urine Blood Negative (Negative); Urine Ketones Negative (Negative); Urine Protein Trace mg/dL (Neg-Trace)
[2024-05-09 10:39] LABS: Bacteria Urine None Seen (None Seen); Calcium Oxalate Crystals Urine Present; RBC Urine 0-2 /HPF (0-2); Squamous Epithelial Cell Urine 0-2 /HPF (0-2); UACC Culture Trigger YES
[2024-05-09 11:11] LABS: MANUAL DIFF FLAG NO
[2024-05-09 11:23] LABS: Basophils Absolute Auto 0.1 X10*3/uL (0.0-0.2); Basophils Percent Auto 0.8 % (0-2); Eosinophils Absolute Auto 0.1 X10*3/uL (0.0-0.4); Hematocrit 45.5 % (37.0-47.0); Hemoglobin 14.9 g/dl (12.0-16.0); Imm Gran Abs Auto 0.03 X10*3/uL (0.00-0.03); Imm Gran Pct Auto 0.5 % (0.0-0.4); Lymphocytes Absolute Auto 2.3 X10*3/uL (1.2-4.9); Mean Corpuscular HGB Conc 32.7 g/dl (31.0-35.0); Mean Corpuscular Hemoglobin 29.6 pg (27.0-33.0); Mean Corpuscular Volume 90.5 fL (80.0-98.0); Mean Platelet Volume 8.7 fL (9.4-12.3); Monocytes Absolute Auto 0.5 X10*3/uL (0.1-1.2); Monocytes Percent Auto 8.4 % (2-11); Neutrophils Absolute Auto 3.4 x10*3/uL (2.0-8.3); Neutrophils Percent Auto 52.3 % (45-73); Platelet Count 336 X10*3/uL (160-400); Red Blood Count 5.03 X10*6/uL (4.20-5.50); Red Cell Distribution Width 13.6 % (11.0-16.0); White Blood Count 6.4 X10*3/uL (4.8-10.8)
[2024-05-09 11:52] LABS: Alanine Aminotransferase 27 U/L (0-31); Albumin Level 4.1 g/dL (3.5-5.0); Alkaline Phosphatase 68 U/L (39-117); Anion Gap 12 (12-20); Aspartate Amino Transferase 21 U/L (5-31); Bilirubin Total 0.3 mg/dL (0.0-1.0); Blood Urea Nitrogen 20 mg/dL (9-16); Calcium 9.9 mg/dL (8.4-10.2); Carbon Dioxide 28 mmol/L (22-29); Chloride 109 mmol/L (96-108); Cholesterol 221 mg/dL (<200); Estimated Glomerular Filt Rate 59; Glucose Fasting 81 mg/dL (60-99); HDL Cholesterol 55 mg/dL (>40); LDL Cholesterol Calculated 145 mg/dL (<100); Potassium 4.1 mmol/L (3.3-5.1); Sodium 145 mmol/L (135-145); Total Protein 6.5 g/dL (6.5-8.0); Triglycerides 108 mg/dL (<150)
[2024-05-09 12:07] LABS: TSH reflex Free T4 0.43 uIU/mL (0.32-4.0)
== END 2024-05-09 07:12 | disposition home or self-care (01) ==
LOC: HO.HMGCLDS 07:11
PROVIDERS: PCP Nurse Practitioner Family; Visit Provider Nurse Practitioner Family
DX: E78.5 Hyperlipidemia, unspecified (principal); R82.90 Unspecified abnormal findings in urine
CPT/HCPCS: 36415; 80053; 80061; 81001; 84443; 85025; 87086

== ENCOUNTER 2024-05-10 08:30 | Outpatient (AMB) | payer MEDICARE, OTHER, SELFPAY ==
[2024-05-10 08:40] VITALS: BP 160/90; PULSE 70; O2SAT 97; BMI 33.1
--- NOTE | 2024-05-10 08:40 | MHC.PC.OV ---
Vital Signs 05/10/24 08:40 05/10/24 09:14 Height 5 ft 3.5 in Weight 190 lb BMI 33.1 BP 160/90 H 150/90 H Blood Pressure Location Lt brachial Rt brachial Position Sitting Sitting Pulse 70 Pulse Source Pulse Oximeter Pulse Oximetry (%) 97 Oxygen Delivery Method Room Air Intake Visit Reasons: 4 month follow up Intake Note: pt is here for 4 month follow up, patient has fell 3 times in about a month. and patient is in pain due to falling on back. 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 Accompanied by: Self / Same As Patient Allergies lactose Allergy (Unknown, Verified 05/10/24 11:08) lactose intolerant GI upset sulfamethoxazole Allergy (Unknown, Verified 05/10/24 11:08) vomiting tizanidine Allergy (Verified 05/10/24 11:08) Vomiting doxycycline Adverse Reaction (Severe, Verified 05/10/24 11:08) Diarrhea Medication List - Last Reconciled 05/10/24 by Marcos Rocha, [employer]- acetaminophen (Tylenol Extra Strength) 1,000 mg PO Q6H PRN albuterol sulfate 90 mcg/actuation 2 puffs inhalation Q4-6H PRN bupropion HCl XL 300 mg PO QAM calcium carbonate (Calcium 600) 600 mg PO BID 90 days cholecalciferol (vitamin D3) 25 mcg PO DAILY 90 days coenzyme Q10 100 mg PO DAILY cyclobenzaprine 10 mg PO DAILY PRN diclofenac potassium 50 mg PO BID PRN 90 days docusate sodium (Colace) 100 mg PO BID fluticasone propion-salmeterol 500-50 mcg/dose (Wixela Inhub) 1 ea PO BID PRN gabapentin 1,200 mg (2 x 600 mg) PO DAILY 60 days levothyroxine 125 mcg PO QAM 90 days loratadine 10 mg PO DAILY losartan 25 mg PO DAILY lutein 40 mg PO DAILY magnesium 250 mg PO DAILY metoprolol succinate ER 25 mg PO DAILY 90 days montelukast 10 mg PO DAILY 90 days multivitamin 1 tab PO DAILY psyllium husk (Metamucil) 2 tsp PO DAILY rosuvastatin 20 mg PO BEDTIME 90 days sennosides (senna) 17.2 mg (2 x 8.6 mg) PO BEDTIME 30 days sumatriptan succinate (Imitrex) 25 mg PO Q2-4H PRN tiotropium bromide (Spiriva with HandiHaler) 1 cap inhalation DAILY tramadol 50 mg PO DAILY PRN vit C-E-zinc nl-ptux-crh-zeax 250 mg-200 unit -12.5 mg-1 mg (ICaps AREDS2) 1 cap PO DAILY Tobacco use date assessed: 10/27/23 Fall risk assessment: 2 + Falls in past year Last assessed Fall Risk: 05/10/24 Dental Screening Dental Screen Date: 10/27/23 HPI 4 month follow up HPI Details Dyslipidemia: Last lipids were elevated. Pt is taking rosuvastatin 20mg. She reports that she is not taking this daily. Encouraged pt to take this daily as prescribed. HTN: Blood pressure is elevated today, managed with losartan 25mg and metoprolol 25mg. Pt reports that her blood pressure is elevated because she is in pain. She has only been taking 12.5mg of metoprolol, instructed pt to take a full tab (25mg) as prescribed. Denies chest pain, shortness of breath, headache, blurred vision, and dizziness. [facility] Medical History Abdominal pain Rash Contact dermatitis Encounter for medication monitoring Upper respiratory tract infection Impacted cerumen, bilateral Fatigue Dietary counseling Screening for cervical cancer Physical exam Tubular adenoma of colon Diverticular disease Acute diverticulitis Macular degeneration Seborrheic keratosis Dyslipidemia Depression Asthma COPD (chronic obstructive pulmonary disease) HTN (hypertension) Hypothyroid Fibromyalgia Lumbar spondylosis Surgical History History of colonoscopy Hx laparoscopic cholecystectomy History of surgery H/O breast biopsy History of hysterectomy History of knee replacement procedure of right knee History of knee replacement procedure of left knee Family History Father Unknown family medical history Mother Unknown family medical history Social History Household Members: Spouse Housing: House Do you presently have visiting nurse or other home services: No Alcohol intake: never Patient Tobacco Use Status: Never used Tobacco e-Cigarette/Vaping Use: Never Used Second Hand Smoke Exposure: No Advance Directives Date on File: 01/08/22 service: No Current occupational status: disabled Cognitive needs: No Hearing needs: No Vision needs: No Questionnaire PHQ-9 Over the last 2 weeks, how often have you been bothered by any of the following problems? 1. Little interest or pleasure in doing things: not at all 2. Feeling down, depressed, or hopeless: not at all 3. Trouble falling or staying asleep, or sleeping too much: several days 4. Feeling tired or having little energy: several days 5. Poor appetite or overeating: not at all 6. Feeling bad about yourself - or that you are a failure or have let yourself or your family down: not at all 7. Trouble concentrating on things, such as reading the newspaper or watching television: not at all 8. Moving or speaking so slowly that other people could have noticed. Or the opposite - being so fidgety or restless that you have been moving around a lot more than usual: not at all 9. Thoughts that you would be better off or of hurting yourself in some way: not at all Total score: 2 Depression Screening Interpretation: Negative Depression Screening Done: Yes 78147 - PHQ-9 Billing: Yes Source: Developed by Drs. Chadwick Scott, Lindsay Bender, Elliot Cox and colleagues, with an educational lucero from [employer]. Thrive Questionnaire Date Thrive assessed: 05/10/24 I am a: Patient What is your living situation today?: I have a steady place to live Within the past 12 months, did the food you bought not last and you didn't have the money to get more?: Never true Within the past 12 months, did you worry whether your food would run out before you got money to buy more?: Never true Do you have trouble paying for medicines?: No Do you have trouble getting transportation to medical appointments?: No Do you have trouble paying your heating and electricity bill?: No Do you have trouble taking care of your child, family member or friend?: No Do you have trouble with day-to-day activities such as bathing, preparing meals, shopping, managing finances, etc.?: No Are you currently unemployed and looking for a job?: I choose not to answer this question Are you interested in more education?: No Please select the resources that you would like help with: Housing/Snf Currently or been in a relationship where the following occur: No concerns reported THRIVE Score: 0 AUDIT C Alcohol Use Questionnaire (AUDIT-C) 1. How often do you have a drink containing alcohol?: Never 3. How often do you have six or more drinks on one occasion?: Never Total Score: 0 Score Reviewed/Action Taken: Yes MCKENNA-7 AMB Questionnaire MCKENNA-7 Date MCKENNA - 7 assessed: 05/10/24 Feeling nervous, anxious, or on edge: 0 = Not at all Not being able to stop or control worryin = Not at all Worrying too much about different things: 0 = Not at all Trouble relaxin = Not at all Being so restless that it is hard to sit still: 0 = Not at all Becoming easily annoyed or irritable: 0 = Not at all Feeling afraid as if something awful might happen: 0 = Not at all Total MCKENNA-7 score (0-4 normal; 5-9 mild; 10-14 moderate; 15-21 severe): 0 Source: Developed by Drs. Chadwick Scott, Lindsay Bender, Elliot Cox and colleagues, with an educational lucero from [employer]. MCKENNA-7 Assessment Billing MCKENNA-7 Assessment Tool: MCKENNA-7 Assessment 08768 Review of Systems Const Reports as per HPI Physical exam (Primary Care) Vital Signs: Last Vital Signs Pulse 70 05/10/24 08:40 BP 150/90 H 05/10/24 09:14 Pulse Ox 97 05/10/24 08:40 Oxygen Delivery Method Room Air 05/10/24 08:40 BMI result Body Mass Index 33.1 Tobacco/Smoking Status: Tobacco use Status Tobacco use date assessed 10/27/23 05/10/24 08:42 Patient Tobacco Use Status Never used Tobacco 05/10/24 08:42 e-Cigarette/Vaping Use Never Used 05/10/24 08:42 PHQ-9: PHQ-9 Score PHQ-9: Total score 2 05/10/24 09:14 Depression Screening Interpretation: Negative Thrive Assessment: Date of Thrive Assessment Date Thrive assessed 05/10/24 05/10/24 08:42 Currently or been in a relationship where the following occur: No concerns reported Const General: cooperative Orientation/consciousness: patient oriented x3 Resp Effort & Inspection: normal respiratory effort Auscultation: clear to auscultation bilaterally Cardio Rate: regular rate Rhythm: regular rhythm Heart sounds: S1 normal heart sound present and S2 normal heart sound present Neuro General: patient oriented x3 Extrem Right lower extremity: no edema Left lower extremity: no edema Psych Appearance: grossly normal Mental Status: mental status grossly normal Speech and movement: Normal speech and movement present Affect: normal affect Attitude: cooperative Thought process: Normal thought process present Thought content: Normal thought content present Insight: Good insight present (Psych) Judgement: Good judgement present (Psych) Assessment and Plan Assessment & Plan (1) Dyslipidemia: Code(s): E78.5 - Hyperlipidemia, unspecified Plan: encouraged to take rosuvastatin daily as prescribed. (2) HTN (hypertension): Code(s): I10 - Essential (primary) hypertension Plan: taking only 12.5mg metoprolol. instructed to take full tab of metoprolol at 25mg, and send me BPs via the portal Plan The patient agreed to the use of a medical office technician for this encounter. Scribed for DANNIE Cruz-THEODORE by Shelbi Mendoza medical office technician, on 05/10/2024 at 08:55 EST. Coding Level of Care Code Est Pt Level 3 (66462) Diagnoses Dyslipidemia E78.5 HTN (hypertension) I10 Additional Codes MCKENNA-7 Assessment Billing - MCKENNA-7 Assessment Tool: MCKENNA-7 Assessment 98554 ([id number])
[2024-05-10 09:14] VITALS: BP 150/90
== END 2024-05-10 09:31 | disposition home or self-care (01) ==
PROVIDERS: PCP Nurse Practitioner Family; Visit Provider Nurse Practitioner Family
DX: E78.5 Hyperlipidemia, unspecified (principal); I10 Essential (primary) hypertension
CPT/HCPCS: 99213

== ENCOUNTER 2024-05-16 10:37 | Outpatient (AMB) | payer MEDICARE, OTHER, SELFPAY ==
--- NOTE | 2024-05-16 10:33 | A.OFFVIS_ITS ---
Intake Visit Reasons: TELEPHONE F/U [facility] Allergies lactose Allergy (Unknown, Verified 05/10/24 11:08) lactose intolerant GI upset sulfamethoxazole Allergy (Unknown, Verified 05/10/24 11:08) vomiting tizanidine Allergy (Verified 05/10/24 11:08) Vomiting doxycycline Adverse Reaction (Severe, Verified 05/10/24 11:08) Diarrhea Medication List - Last Reconciled 05/16/24 by BRENDA Cooley acetaminophen (Tylenol Extra Strength) 1,000 mg PO Q6H PRN albuterol sulfate 90 mcg/actuation 2 puffs inhalation Q4-6H PRN bupropion HCl XL 300 mg PO QAM calcium carbonate (Calcium 600) 600 mg PO BID 90 days cholecalciferol (vitamin D3) 25 mcg PO DAILY 90 days coenzyme Q10 100 mg PO DAILY cyclobenzaprine 10 mg PO DAILY PRN diclofenac potassium 50 mg PO BID PRN 90 days docusate sodium (Colace) 100 mg PO BID fluticasone propion-salmeterol 500-50 mcg/dose (Wixela Inhub) 1 ea PO BID PRN gabapentin 1,200 mg (2 x 600 mg) PO DAILY 60 days levothyroxine 125 mcg PO QAM 90 days loratadine 10 mg PO DAILY losartan 25 mg PO DAILY lutein 40 mg PO DAILY magnesium 250 mg PO DAILY metoprolol succinate ER 25 mg PO DAILY 90 days montelukast 10 mg PO DAILY 90 days multivitamin 1 tab PO DAILY psyllium husk (Metamucil) 2 tsp PO DAILY rosuvastatin 20 mg PO BEDTIME 90 days sennosides (senna) 17.2 mg (2 x 8.6 mg) PO BEDTIME 30 days sumatriptan succinate (Imitrex) 25 mg PO Q2-4H PRN tiotropium bromide (Spiriva with HandiHaler) 1 cap inhalation DAILY tramadol 50 mg PO DAILY PRN vit C-E-zinc fy-isep-tlr-zeax 250 mg-200 unit -12.5 mg-1 mg (ICaps AREDS2) 1 cap PO DAILY HPI Comments Details: Pt presents in followup for [facility], visit #7. Starting weight: 203 Weight at last visit: 190 Weight today: 190 Total weight change since starting program: -13 Had a few falls since last visit. Yesterday her right knee gave out. Back spasms have increased. Continues to help her with treatment for MS/infusion. BP control- was high lately, takes a full pill now instead of half after seeing PCP- she thinks this may be due to pain Was finding support groups helpful when they were running. Current meal plan: breakfast- Pure protein shake with half scoop (12.5g), collagen (9g), greens powder, metamucil lunch- 4 forks protein (2 eggs, cottage cheese, or kosovan yogurt) with fruit or veg snack- Pure protein bar dinner- 6 forks protein with salad or veg after dinner may have sugar free fudgesicle has been having some fruit as midmorning snack Exercise: Kandis Rose, at least 1 mile usually every day [facility] Medical History Abdominal pain Rash Contact dermatitis Encounter for medication monitoring Upper respiratory tract infection Impacted cerumen, bilateral Fatigue Dietary counseling Screening for cervical cancer Physical exam Tubular adenoma of colon Diverticular disease Acute diverticulitis Macular degeneration Seborrheic keratosis Dyslipidemia Depression Asthma COPD (chronic obstructive pulmonary disease) HTN (hypertension) Hypothyroid Fibromyalgia Lumbar spondylosis Surgical History History of colonoscopy Hx laparoscopic cholecystectomy History of surgery H/O breast biopsy History of hysterectomy History of knee replacement procedure of right knee History of knee replacement procedure of left knee Family History Father Unknown family medical history Mother Unknown family medical history Social History Household Members: Spouse Housing: House Do you presently have visiting nurse or other home services: No Alcohol intake: never Patient Tobacco Use Status: Never used Tobacco e-Cigarette/Vaping Use: Never Used Second Hand Smoke Exposure: No Advance Directives Date on File: 01/08/22 service: No Current occupational status: disabled Cognitive needs: No Hearing needs: No Vision needs: No Telehealth Telehealth Telehealth Platform: Telephone Location of provider rendering services: practice address Location of patient: address on file Patient Identification confirmed using: Name, : Yes Telehealth method: voice only Patient verbally consented to treatment: Yes Patient verbally consented to billing insurance company: Yes Patient informed of any privacy concerns related to visit: Yes Minutes spent on Phone/Video with Pt.: 15 Assessment & Plan Assessment & Plan (1) Obesity: Code(s): E66.9 - Obesity, unspecified Category: Medical Plan Pt will try to increase exercise again, has adjusted meal plan a bit to ensure adequate protein intake and cut out off plan items. Will continue to monitor BP, trying to avoid high salt foods. Sent suggestions for home videos, Sit to be Fit suggested if she has back pain that limits walking. RTC 3 months. I spent a total of 30 minutes reviewing/updating records, examining the patient and counseling the patient on weight management as detailed above.
== END 2024-05-16 10:53 | disposition home or self-care (01) ==
LOC: HO.HBS 10:37
PROVIDERS: PCP Nurse Practitioner Family; Visit Provider Physician Assistant Surgical
DX: E66.9 Obesity, unspecified (principal)
CPT/HCPCS: 99214

== ENCOUNTER → 2024-05-16 10:37 | Outpatient (BNVA) | payer MEDICARE, OTHER, SELFPAY | PROVIDERS: PCP Nurse Practitioner Family; Visit Provider Physician Assistant Surgical ==

== ENCOUNTER → 2024-05-18 07:59 | Outpatient (BNVA) | payer MEDICARE, OTHER, SELFPAY | PROVIDERS: PCP Nurse Practitioner Family; Visit Provider Physician Assistant Surgical ==

== ENCOUNTER → 2024-05-25 08:00 | Outpatient (BNVA) | payer MEDICARE, OTHER, SELFPAY | PROVIDERS: PCP Nurse Practitioner Family; Visit Provider Physician Assistant Surgical ==

== ENCOUNTER → 2024-06-08 08:00 | Outpatient (BNVA) | payer MEDICARE, OTHER, SELFPAY | PROVIDERS: PCP Nurse Practitioner Family; Visit Provider Physician Assistant Surgical ==

== ENCOUNTER → 2024-06-22 07:53 | Outpatient (BNVA) | payer MEDICARE, OTHER, SELFPAY | PROVIDERS: PCP Nurse Practitioner Family; Visit Provider Physician Assistant Surgical ==

== ENCOUNTER 2024-07-09 10:46 | Outpatient (AMB) | payer MEDICARE, OTHER, SELFPAY ==
--- NOTE | 2024-07-09 10:50 | MHC.OFFVISWM ---
VS Expanded 07/09/24 11:08 BP 130/73 Blood Pressure Location Rt brachial Blood Pressure Position Sitting Pulse 68 Pulse Source Pulse Oximeter Temp 97.4 F Temperature Source Temporal Artery Scan Pulse Oximetry 96 Oxygen Delivery Method Room Air Height 5 ft 3.5 in Weight 188 lb 3.2 oz BMI 32.8 Body Fat % 42.6 Body Fat Mass 76.2 Fat Free Mass 108.0 Visceral Fat Rating 12.0 Body Water % 40.6 Body Water Mass 76.2 Muscle Mass/Score 102.6 Basal Metabolic Rate/Score 1,493 Intake Visit Reasons: F/U [facility] Allergies lactose Allergy (Unknown, Verified 07/09/24 11:10) lactose intolerant GI upset sulfamethoxazole Allergy (Unknown, Verified 07/09/24 11:10) vomiting tizanidine Allergy (Verified 07/09/24 11:10) Vomiting doxycycline Adverse Reaction (Severe, Verified 07/09/24 11:10) Diarrhea Medication List - Last Reconciled 07/09/24 by BRENDA Cooley acetaminophen (Tylenol Extra Strength) 1,000 mg PO Q6H PRN albuterol sulfate 90 mcg/actuation 2 puffs inhalation Q4-6H PRN bupropion HCl XL 300 mg PO QAM calcium carbonate (Calcium 600) 600 mg PO BID 90 days cholecalciferol (vitamin D3) 25 mcg PO DAILY 90 days coenzyme Q10 100 mg PO DAILY cyclobenzaprine 10 mg PO DAILY PRN diclofenac potassium 50 mg PO BID PRN 90 days docusate sodium (Colace) 100 mg PO BID fluticasone propion-salmeterol 500-50 mcg/dose (Wixela Inhub) 1 ea PO BID PRN gabapentin 1,200 mg (2 x 600 mg) PO DAILY 60 days levothyroxine 125 mcg PO QAM 90 days loratadine 10 mg PO DAILY losartan 25 mg PO DAILY lutein 40 mg PO DAILY magnesium 250 mg PO DAILY metoprolol succinate ER 25 mg PO DAILY 90 days montelukast 10 mg PO DAILY 90 days multivitamin 1 tab PO DAILY psyllium husk (Metamucil) 2 tsp PO DAILY rosuvastatin 20 mg PO BEDTIME 90 days sennosides (senna) 17.2 mg (2 x 8.6 mg) PO BEDTIME 30 days sumatriptan succinate (Imitrex) 25 mg PO Q2-4H PRN tiotropium bromide (Spiriva with HandiHaler) 1 cap inhalation DAILY tramadol 50 mg PO DAILY PRN vit C-E-zinc io-gidw-sgo-zeax 250 mg-200 unit -12.5 mg-1 mg (ICaps AREDS2) 1 cap PO DAILY HPI Comments Details: Pt presents in followup for [facility], visit #8. Starting weight: 203 Weight at last visit: 190 Weight today: 188.2 Total weight change since starting program: -14.8 Has had a migraine for the last 2 days. Knee continues to buckle, seeing a new orthopedist. Continues to help her with treatment for MS/infusion. Going to [place] for 2 weeks to visit her daughter, planning to bring [employer]. We're going to be eating out for every meal. Was finding support groups helpful when they were running. Current meal plan: breakfast- Pure protein shake with half scoop (12.5g), collagen (9g), greens powder, metamucil lunch- 4 forks protein (2 eggs, cottage cheese, or sao tomean yogurt) with fruit or veg snack- Pure protein bar dinner- 6 forks protein with salad or veg after dinner may have sugar free fudgesicle has been having some fruit as midmorning snack Exercise: Kandis Rose, at least 1 mile usually every day has been using a weekly progress report with [employer], explored Sit and Be Fit videos [facility] Medical History Abdominal pain Rash Contact dermatitis Encounter for medication monitoring Upper respiratory tract infection Impacted cerumen, bilateral Fatigue Dietary counseling Screening for cervical cancer Physical exam Tubular adenoma of colon Diverticular disease Acute diverticulitis Macular degeneration Seborrheic keratosis Dyslipidemia Depression Asthma COPD (chronic obstructive pulmonary disease) HTN (hypertension) Hypothyroid Fibromyalgia Lumbar spondylosis Surgical History History of colonoscopy Hx laparoscopic cholecystectomy History of surgery H/O breast biopsy History of hysterectomy History of knee replacement procedure of right knee History of knee replacement procedure of left knee Family History Father Unknown family medical history Mother Unknown family medical history Social History Household Members: Spouse Housing: House Do you presently have visiting nurse or other home services: No Alcohol intake: never Patient Tobacco Use Status: Never used Tobacco e-Cigarette/Vaping Use: Never Used Second Hand Smoke Exposure: No Advance Directives Date on File: 01/08/22 service: No Current occupational status: disabled Cognitive needs: No Hearing needs: No Vision needs: No Assessment & Plan Assessment & Plan (1) Obesity: Code(s): E66.9 - Obesity, unspecified Category: Medical Plan Reviewed Tanita measurements, pt has lost more body fat than evident on total weight. Pt will be active on vacation, will walk a lot. Encouraged her to focus on getting back on track once returning from vacation. She wants to restart support groups when available. RTC 2 months. I spent a total of 30 minutes reviewing/updating records, examining the patient and counseling the patient on weight management as detailed above.
[2024-07-09 11:08] VITALS: BP 130/73; PULSE 68; TEMP 36.3; O2SAT 96; BMI 32.8
== END 2024-07-09 11:36 | disposition home or self-care (01) ==
PROVIDERS: PCP Nurse Practitioner Family; Visit Provider Physician Assistant Surgical
DX: E66.9 Obesity, unspecified (principal); Z68.32 Body mass index [BMI] 32.0-32.9, adult
CPT/HCPCS: 99214

== ENCOUNTER → 2024-07-09 10:46 | Outpatient (BNVA) | payer MEDICARE, OTHER, SELFPAY | PROVIDERS: PCP Nurse Practitioner Family; Visit Provider Physician Assistant Surgical | DX: E66.9 Obesity, unspecified (principal); Z71.3 Dietary counseling and surveillance; Z68.32 Body mass index [BMI] 32.0-32.9, adult | CPT/HCPCS: 99212 ==

== ENCOUNTER 2024-08-23 09:42 | Outpatient (AMB) | payer MEDICARE, OTHER, SELFPAY ==
--- NOTE | 2024-08-23 09:43 | MHC.OFFVIS ---
Vital Signs 08/23/24 09:46 Height 5 ft 3.5 in Weight 195 lb BMI 34.0 BP 134/80 Blood Pressure Location Lt brachial Position Sitting Pulse 70 Pulse Source Pulse Oximeter Pulse Oximetry (%) 98 Oxygen Delivery Method Room Air Intake Visit Reasons: OA/FMS/LM Intake Note: Patient presents for OA/FMS. Allergies lactose Allergy (Unknown, Verified 08/23/24 09:45) lactose intolerant GI upset sulfamethoxazole Allergy (Unknown, Verified 08/23/24 09:45) vomiting tizanidine Allergy (Verified 08/23/24 09:45) Vomiting doxycycline Adverse Reaction (Severe, Verified 08/23/24 09:45) Diarrhea Medication List - Last Reconciled 08/23/24 by Dario Orosco MD acetaminophen (Tylenol Extra Strength) 1,000 mg PO Q6H PRN albuterol sulfate 90 mcg/actuation 2 puffs inhalation Q4-6H PRN bupropion HCl XL 300 mg PO QAM calcium carbonate (Calcium 600) 600 mg PO BID 90 days cholecalciferol (vitamin D3) 25 mcg PO DAILY 90 days coenzyme Q10 100 mg PO DAILY cyclobenzaprine 10 mg PO DAILY PRN diclofenac potassium 50 mg PO BID PRN 90 days docusate sodium (Colace) 100 mg PO BID fluticasone propion-salmeterol 500-50 mcg/dose (Wixela Inhub) 1 ea PO BID PRN gabapentin 1,200 mg (2 x 600 mg) PO DAILY 60 days levothyroxine 125 mcg PO QAM 90 days loratadine 10 mg PO DAILY losartan 25 mg PO DAILY lutein 40 mg PO DAILY magnesium 250 mg PO DAILY metoprolol succinate ER 25 mg PO DAILY 90 days montelukast 10 mg PO DAILY 90 days multivitamin 1 tab PO DAILY psyllium husk (Metamucil) 2 tsp PO DAILY rosuvastatin 20 mg PO BEDTIME 90 days sennosides (senna) 17.2 mg (2 x 8.6 mg) PO BEDTIME 30 days sumatriptan succinate (Imitrex) 25 mg PO Q2-4H PRN 10 days tiotropium bromide (Spiriva with HandiHaler) 1 cap inhalation DAILY tramadol 50 mg PO DAILY PRN vit C-E-zinc qr-btbn-ftx-zeax 250 mg-200 unit -12.5 mg-1 mg (ICaps AREDS2) 1 cap PO DAILY HPI Comments Details: 64-year-old female with fibromyalgia and degenerative arthritis returns for follow-up For the last 3 months patient's right knee has been buckling. It has not been steady. She has fallen multiple times. She has bilateral knee replacement. She will be seeing a knee replacement specialist tomorrow. She states that she continues to have intermittent back spasms. They were more prominent when they drove to visit her family in [place]. She continues to take cyclobenzaprine as needed. Continues to take tramadol nightly. [facility], [facility] Medical History Abdominal pain Rash Contact dermatitis Encounter for medication monitoring Upper respiratory tract infection Impacted cerumen, bilateral Fatigue Dietary counseling Screening for cervical cancer Physical exam Tubular adenoma of colon Diverticular disease Acute diverticulitis Macular degeneration Seborrheic keratosis Dyslipidemia Depression Asthma COPD (chronic obstructive pulmonary disease) HTN (hypertension) Hypothyroid Fibromyalgia Lumbar spondylosis Surgical History History of colonoscopy Hx laparoscopic cholecystectomy History of surgery H/O breast biopsy History of hysterectomy History of knee replacement procedure of right knee History of knee replacement procedure of left knee Family History Father Unknown family medical history Mother Unknown family medical history Social History Household Members: Spouse Housing: House Do you presently have visiting nurse or other home services: No Alcohol intake: never Patient Tobacco Use Status: Never used Tobacco e-Cigarette/Vaping Use: Never Used Second Hand Smoke Exposure: No Advance Directives Date on File: 01/08/22 service: No Current occupational status: disabled Cognitive needs: No Hearing needs: No Vision needs: No Review of Systems Musc Details: Muscle spasms Reports arthralgias Physical Exam Vital Signs: Last Vital Signs Pulse 70 08/23/24 09:46 BP 134/80 08/23/24 09:46 Pulse Ox 98 08/23/24 09:46 Oxygen Delivery Method Room Air 08/23/24 09:46 BMI result Body Mass Index 34.0 Const General: cooperative, healthy appearing and comfortable Nutritional Appearance: obese morbidly obese Orientation/consciousness: patient oriented x3 Limitations: no limitations HEENT Head: Yes normocephalic and Yes atraumatic Mouth: moist mucous membranes Resp Effort & Inspection: normal respiratory effort and able to speak in complete sentences Auscultation: clear to auscultation bilaterally Cardio Rate: regular rate Rhythm: regular rhythm Neuro General: patient oriented x3 Extrem Other: Bilateral paraspinal muscle tenderness in the lumbar area. Minimal right knee warmth Multiple fibromyalgia tender points No active synovitis Assessment & Plan Assessment & Plan (1) Lumbar spondylosis: Comment: Tramadol: 2017 to present Cyclobenzaprine: 2017 to present Gabapentin: Prior to 2012 to present Code(s): M47.816 - Spondylosis without myelopathy or radiculopathy, lumbar region Category: Medical Plan: Stable. Managing symptoms with gabapentin daily tramadol 50 mg daily and prn Flexeril (1-2 times a week)? . She is aware there is a risk of serotonin syndrome when taking Flexeril with tramadol. She is also aware that taking Flexeril and tramadol concomitantly may increase somnolence. She has been taking tramadol and Flexeril together for many years without issue and would like to continue. Advised patient to consider a sleep study to rule out obstructive sleep apnea given her fibromyalgia symptoms. Her main problem today is buckling of her right knee. Multiple falls. History of right knee replacement. She will be seeing a knee replacement specialist tomorrow Follow-up in 6 months Plan I spent 15 minutes reviewing patient's chart, evaluating patient, counseling patient and documenting in the chart Coding Level of Care Code Est Pt Level 3 (34122) Diagnoses Lumbar spondylosis M47.816
[2024-08-23 09:46] VITALS: BP 134/80; PULSE 70; O2SAT 98; BMI 34.0
== END 2024-08-23 10:06 | disposition home or self-care (01) ==
PROVIDERS: PCP Nurse Practitioner Family; Visit Provider Student in an Organized Health Care Education/Training Program
DX: M47.816 Spondylosis without myelopathy or radiculopathy, lumbar region (principal)
CPT/HCPCS: 99213

== ENCOUNTER → 2024-08-23 09:42 | Outpatient (BNVA) | payer MEDICARE, OTHER, SELFPAY | PROVIDERS: PCP Nurse Practitioner Family; Visit Provider Student in an Organized Health Care Education/Training Program | DX: M47.816 Spondylosis without myelopathy or radiculopathy, lumbar region (principal) | CPT/HCPCS: 99212 ==

== ENCOUNTER → 2024-09-10 08:03 | Outpatient (BNVA) | payer MEDICARE, OTHER, SELFPAY | PROVIDERS: PCP Nurse Practitioner Family; Visit Provider Physician Assistant Surgical | DX: E66.9 Obesity, unspecified (principal); Z68.33 Body mass index [BMI] 33.0-33.9, adult | CPT/HCPCS: 99212 ==

== ENCOUNTER 2024-09-10 10:31 | Outpatient (AMB) | payer MEDICARE, OTHER, SELFPAY ==
--- NOTE | 2024-09-10 10:34 | A.OFFVIS_ITS ---
VS Expanded 09/10/24 10:38 BP 100/59 L Blood Pressure Location Rt brachial Blood Pressure Position Sitting Pulse 89 Pulse Source Pulse Oximeter Temp 97.3 F Temperature Source Temporal Artery Scan Pulse Oximetry 95 Oxygen Delivery Method Room Air Height 5 ft 3.5 in Weight 192 lb 12.8 oz BMI 33.6 Body Fat % 44.2 Body Fat Mass 85.0 Fat Free Mass 107.6 Visceral Fat Rating 13.0 Body Water % 39.5 Body Water Mass 76.0 Muscle Mass/Score 102.0 Basal Metabolic Rate/Score 1,496 Intake Visit Reasons: (OV) F/U [facility] Allergies lactose Allergy (Unknown, Verified 09/10/24 10:39) lactose intolerant GI upset sulfamethoxazole Allergy (Unknown, Verified 09/10/24 10:39) vomiting tizanidine Allergy (Verified 09/10/24 10:39) Vomiting doxycycline Adverse Reaction (Severe, Verified 09/10/24 10:39) Diarrhea Medication List - Last Reconciled 09/10/24 by BRENDA Cooley acetaminophen (Tylenol Extra Strength) 1,000 mg PO Q6H PRN albuterol sulfate 90 mcg/actuation 2 puffs inhalation Q4-6H PRN bupropion HCl XL 300 mg PO QAM calcium carbonate (Calcium 600) 600 mg PO BID 90 days cholecalciferol (vitamin D3) 25 mcg PO DAILY 90 days coenzyme Q10 100 mg PO DAILY cyclobenzaprine 10 mg PO DAILY PRN diclofenac potassium 50 mg PO BID PRN 90 days docusate sodium (Colace) 100 mg PO BID fluticasone propion-salmeterol 500-50 mcg/dose (Wixela Inhub) 1 ea PO BID PRN gabapentin 1,200 mg (2 x 600 mg) PO DAILY 60 days levothyroxine 125 mcg PO QAM 90 days loratadine 10 mg PO DAILY losartan 25 mg PO DAILY lutein 40 mg PO DAILY magnesium 250 mg PO DAILY metoprolol succinate ER 25 mg PO DAILY 90 days montelukast 10 mg PO DAILY 90 days multivitamin 1 tab PO DAILY psyllium husk (Metamucil) 2 tsp PO DAILY rosuvastatin 20 mg PO BEDTIME 90 days sennosides (senna) 17.2 mg (2 x 8.6 mg) PO BEDTIME 30 days sumatriptan succinate (Imitrex) 25 mg PO Q2-4H PRN 10 days tiotropium bromide (Spiriva with HandiHaler) 1 cap inhalation DAILY tramadol 50 mg PO DAILY PRN vit C-E-zinc ca-yszm-hbo-zeax 250 mg-200 unit -12.5 mg-1 mg (ICaps AREDS2) 1 cap PO DAILY HPI Comments Details: Pt presents in followup for [facility], visit #9. Starting weight: 203 Weight at last visit: 188.2 Weight today: 192.8 Total weight change since starting program: -10.2 Continues to help her with treatment for MS/infusion. Next time traveling to [place] will be January. Was traveling quite a bit since last OV, eating out 2 meals a day for weeks . Was having shakes for breakfast often, would have bars as snacks. BP well controlled today, pt actually didn't take her meds today. Tries to check it daily at home. Current meal plan: breakfast- Pure protein shake with half scoop (12.5g), collagen (9g), greens powder, metamucil lunch- 4 forks protein (2 eggs, cottage cheese, or amharic yogurt) with fruit or veg snack- Pure protein bar dinner- 6 forks protein with salad or veg after dinner may have sugar free fudgesicle has been having some fruit as midmorning snack Exercise: Kandis Rose, at least 1 mile usually every day has been using a weekly progress report with [employer], explored Sit and Be Fit videos swimming 2x/week also has a cubii - under desk elliptical has knee pain/instability- had to go to urgent care recently where she had an x- ray, may need another R knee surgery; also had ingrown toenail on each foot- limited her walking [facility] Medical History Abdominal pain Rash Contact dermatitis Encounter for medication monitoring Upper respiratory tract infection Impacted cerumen, bilateral Fatigue Dietary counseling Screening for cervical cancer Physical exam Tubular adenoma of colon Diverticular disease Acute diverticulitis Macular degeneration Seborrheic keratosis Dyslipidemia Depression Asthma COPD (chronic obstructive pulmonary disease) HTN (hypertension) Hypothyroid Fibromyalgia Lumbar spondylosis Surgical History History of colonoscopy Hx laparoscopic cholecystectomy History of surgery H/O breast biopsy History of hysterectomy History of knee replacement procedure of right knee History of knee replacement procedure of left knee Family History Father Unknown family medical history Mother Unknown family medical history Social History Household Members: Spouse Housing: House Do you presently have visiting nurse or other home services: No Alcohol intake: never Patient Tobacco Use Status: Never used Tobacco e-Cigarette/Vaping Use: Never Used Second Hand Smoke Exposure: No Advance Directives Date on File: 01/08/22 service: No Current occupational status: disabled Cognitive needs: No Hearing needs: No Vision needs: No Assessment & Plan Assessment & Plan (1) Obesity: Code(s): E66.9 - Obesity, unspecified Category: Medical Plan Pt will return to previous meal plan. Traveling to [place] in Nov to visit son. Can do LS videos seated. I also encouraged her to use her Cubii on days she does not swim. May try free yoga at her [employer]. Discussed that additional weight loss may also help with better recovery from an additional knee surgery. RTC 3 months. I spent a total of 30 minutes reviewing/updating records, examining the patient and counseling the patient on weight management as detailed above.
[2024-09-10 10:38] VITALS: BP 100/59; PULSE 89; TEMP 36.3; O2SAT 95; BMI 33.6
== END 2024-09-10 11:04 | disposition home or self-care (01) ==
PROVIDERS: PCP Nurse Practitioner Family; Visit Provider Physician Assistant Surgical
DX: E66.9 Obesity, unspecified (principal); E66.811 Obesity, class 1; Z68.33 Body mass index [BMI] 33.0-33.9, adult
CPT/HCPCS: 99214; G2211

== ENCOUNTER → 2024-09-21 07:59 | Outpatient (BNVA) | payer MEDICARE, OTHER, SELFPAY | PROVIDERS: PCP Nurse Practitioner Family; Visit Provider Physician Assistant Surgical ==

== ENCOUNTER 2024-11-06 14:02 | Outpatient (AMB) | payer MEDICARE, OTHER, SELFPAY ==
[2024-11-06 14:07] VITALS: BP 138/94; PULSE 77; RESP 18; TEMP 36.7; O2SAT 97; BMI 33.3
--- NOTE | 2024-11-06 14:07 | A.OFFVIS_ITS ---
Intake Vital Signs 11/06/24 14:07 Height 5 ft 3.5 in Weight 191 lb 1 oz BMI 33.3 BP 138/94 H Blood Pressure Location Rt brachial Position Sitting Respiration 18 Pulse 77 Pulse Source Pulse Oximeter Temp 98.1 F Temp Source Oral Pulse Oximetry (%) 97 Oxygen Delivery Method Room Air Intake Visit Reasons: AWV G0438 Intake Note: Pt is here today for her AWV. nitor Allergies lactose Allergy (Unknown, Verified 11/06/24 16:49) lactose intolerant GI upset sulfamethoxazole Allergy (Unknown, Verified 11/06/24 16:49) vomiting tizanidine Allergy (Verified 11/06/24 16:49) Vomiting doxycycline Adverse Reaction (Severe, Verified 11/06/24 16:49) Diarrhea Medication List - Last Reconciled 11/06/24 by Marcos Rocha, [facility]- albuterol sulfate 90 mcg/actuation 2 puffs inhalation Q4-6H PRN bupropion HCl XL 300 mg PO QAM calcium carbonate (Calcium 600) 600 mg PO BID 90 days cholecalciferol (vitamin D3) 25 mcg PO DAILY 90 days coenzyme Q10 100 mg PO DAILY cyclobenzaprine 10 mg PO DAILY PRN diclofenac potassium 50 mg PO BID PRN 90 days docusate sodium (Colace) 100 mg PO BID fluticasone propion-salmeterol 500-50 mcg/dose (Wixela Inhub) 1 ea PO BID PRN gabapentin 1,200 mg (2 x 600 mg) PO DAILY 60 days levothyroxine 125 mcg PO QAM 90 days loratadine 10 mg PO DAILY losartan 25 mg PO DAILY lutein 40 mg PO DAILY magnesium 250 mg PO DAILY metoprolol succinate ER 25 mg PO DAILY 90 days montelukast 10 mg PO DAILY 90 days multivitamin 1 tab PO DAILY psyllium husk (Metamucil) 2 tsp PO DAILY rosuvastatin 20 mg PO BEDTIME 90 days sennosides (senna) 17.2 mg (2 x 8.6 mg) PO BEDTIME 30 days sumatriptan succinate (Imitrex) 25 mg PO Q2-4H PRN 10 days tiotropium bromide (Spiriva with HandiHaler) 1 cap inhalation DAILY tramadol 50 mg PO DAILY PRN vit C-E-zinc rp-rlbo-rtc-zeax 250 mg-200 unit -12.5 mg-1 mg (ICaps AREDS2) 1 cap PO DAILY HPI AWV G0438 HPI Details AWV: CCC in scan pile, PPP in scan pile. Pts BPs at home are much better. She will cont to [facility] Medical History Abdominal pain Rash Contact dermatitis Encounter for medication monitoring Upper respiratory tract infection Impacted cerumen, bilateral Fatigue Dietary counseling Screening for cervical cancer Physical exam Tubular adenoma of colon Diverticular disease Acute diverticulitis Macular degeneration Seborrheic keratosis Dyslipidemia Depression Asthma COPD (chronic obstructive pulmonary disease) HTN (hypertension) Hypothyroid Fibromyalgia Lumbar spondylosis Surgical History History of colonoscopy Hx laparoscopic cholecystectomy History of surgery H/O breast biopsy History of hysterectomy History of knee replacement procedure of right knee History of knee replacement procedure of left knee Family History Father Unknown family medical history Mother Unknown family medical history Social History Household Members: Spouse Housing: House Do you presently have visiting nurse or other home services: No Alcohol intake: never Patient Tobacco Use Status: Never used Tobacco e-Cigarette/Vaping Use: Never Used Second Hand Smoke Exposure: No Advance Directives Date on File: 01/08/22 service: No Current occupational status: disabled Cognitive needs: No Hearing needs: No Vision needs: No Questionnaire Medicare Wellness Checkup [age] What gender do you identify with?: female During the past 4 weeks, how much have you been bothered by emotional problems such as feeling anxious, depressed, irritable, sad or downhearted, and blue?: not at all During the past 4 weeks, has your physical & emotional health limited your social activities with family, friends, neighbors, or groups?: slightly During the past 4 weeks, how much bodily pain have you generally had?: mild pain During the past 4 weeks, was someone available to help you if you needed & wanted help?: yes, as much as I wanted During the past 4 weeks, what was the hardest physical activity you could do for at least 2 minutes?: moderate Can you get to places out of walking distance without help? (For eg., can you travel alone on buses, taxis or drive your car?): Yes Can you go shopping for groceries or clothes without someone's help?: Yes Can you prepare your own meals?: Yes Can you do your housework without help?: Yes Because of any health problems, do you need the help of another person with your personal care needs such as eating, bathing, dressing or getting around the house?: No Can you handle your own money without help?: Yes During the past 4 weeks, how would you rate your health in general?: fair During the past 4 weeks how have things been going for you?: pretty well Are you having difficulties driving your car?: no Do you always fasten your seat belt when you are in a car?: yes, usually During past 4 weeks, have you been bothered by the following: never: Sexual problems?, Trouble eating well?, Teeth or denture problems? and Problems using the telephone? and sometimes: Falling or dizzy when standing up and Tiredness or fatigue? Have you fallen 2 or more times in the past year?: Yes Are you afraid of falling?: No Are you a smoker?: no During the past 4 weeks, how many drinks of wine, beer, or other alcoholic beverages did you have?: no alcohol at all Do you exercise for about 20 minutes 3 or more times a week?: yes, all the time Have you been given information to help with the following?: no: Hazards in your house that might hurt you? and no: Keeping track of your medications? How often do you have trouble taking medicines the way you have been told to t veronika them?: I always take medicine as prescribed How confident are you that you can control & manage most of your health problems?: very confident What is your race?: White Mini Mental State Exam (MMSE) Orientation What is the (year) (season) (date) (day) (month)?: year, season, date, day and month Where are we (state) (county) (town or city) (hospital) (floor)?: state, county, town or city and hospital/clinic Registration Name of 3 unrelated objects clearly and slowly, then ask patient to repeat all 3 of them. (1st repeat determines score. Make sure they can repeat all three): object 1, object 2 and object 3 Attention & Calculation (CHOOSE ONE) Spell WORLD backwards (DLROW): 5 letters Recall Ask patient to repeat the 3 items from question #3.: object 1, object 2 and object 3 Language Show patient a wristwatch & ask what it is. Repeat for pencil.: watch and pencil Ask the patient to repeat the phrase 'No ifs, ands, or buts' after you.: correct Ask the patient to 'take a piece of paper with their right hand' 'fold paper in half' 'place paper on floor': take paper in right hand, fold paper in half and place paper on floor Print the sentence 'CLOSE YOUR EYES' on a piece. If patient actually closes eyes then score.: followed written direction Give patient a blank piece of paper & ask to write a sentence. Score if it contains a noun & verb.: sentence contains subject and verb Ask patient to copy figure of intersecting pentagons exactly. Score if all 10 angles & 2 intersects are included.: all 10 angles present & 2 are intersected Score Score: 29 Activity of Daily Living Bathing - sponge bath, tub bath or shower: receives no assistance (gets in/out by self, if usual bathing means Dressing - getting clothes from closets & drawers, including inner/outer garments & fasteners.: gets clothes & gets completely dressed without help Toileting - going to the 'toilet room' for urine/bowel elimination & cleaning self/arranging clothes: goes to toilet room, cleans self, arranges clothes without help Transfer: moves in & out of bed and chair without help (may use support object) Continence: controls urination/bowel movements completely by self Feeding: feeds self without help Total Score: 0 Information obtained from: patient Using telephone: independent Traveling: independent Shopping: independent Preparing meals: independent Housework: independent Taking medicine: independent Managing money: independent PHQ-9 Over the last 2 weeks, how often have you been bothered by any of the following problems? 1. Little interest or pleasure in doing things: not at all 2. Feeling down, depressed, or hopeless: not at all 3. Trouble falling or staying asleep, or sleeping too much: not at all 4. Feeling tired or having little energy: not at all 5. Poor appetite or overeating: not at all 6. Feeling bad about yourself - or that you are a failure or have let yourself or your family down: not at all 7. Trouble concentrating on things, such as reading the newspaper or watching television: not at all 8. Moving or speaking so slowly that other people could have noticed. Or the opposite - being so fidgety or restless that you have been moving around a lot more than usual: not at all 9. Thoughts that you would be better off or of hurting yourself in some way: not at all Total score: 0 Depression Screening Interpretation: Negative Depression Screening Done: Yes 39858 - PHQ-9 Billing: Yes Source: Developed by Drs. Chadwick Scott, Lindsay Bender, Elliot Cox and colleagues, with an educational lucero from [employer]. Physical Exam Vital Signs: Last Vital Signs Temp 98.1 F 11/06/24 14:07 Pulse 77 11/06/24 14:07 Resp 18 11/06/24 14:07 BP 138/94 H 11/06/24 14:07 Pulse Ox 97 11/06/24 14:07 Oxygen Delivery Method Room Air 11/06/24 14:07 BMI result Body Mass Index 33.3 Neuro Other: able to stand from sitting position, neg rhomberg, tandem walking without diff. Passed whisper test. Assessment & Plan Assessment & Plan (1) Encounter for annual wellness visit (AWV) in Medicare patient: Code(s): Z00.00 - Encounter for general adult medical examination without abnormal findings (2) Vitamin D deficiency: Code(s): E55.9 - Vitamin D deficiency, unspecified Plan . Orders: Orders Comprehensive [place]. Panel Fast Today I10 - Essential (primary) hypertension Lipid Panel Today I10 - Essential (primary) hypertension Vitamin D 25-OH Total Today E55.9 - Vitamin D deficiency, unspecified Complete Blood Count Auto Diff Today I10 - Essential (primary) hypertension TSH reflex Free T4 Today I10 - Essential (primary) hypertension UA CC w/rflx Micro + Cult Today I10 - Essential (primary) hypertension Medications: Refilled rosuvastatin 20 mg PO BEDTIME 90 tabs 2RF 90 days montelukast 10 mg PO DAILY 90 tabs 2RF 90 days Quality Reporting (2019) Depression/Bipolar (159/160/161/177) PHQ-9: Total score: 0 Coding Level of Care Code Medicare First (G0438) Diagnoses Encounter for annual wellness visit (AWV) in Medicare patient Z00.00 Vitamin D deficiency E55.9 CPT Codes Advance Care Planning - Time spent: 1-15 minutes, on File ([id number]) Additional Codes PHQ-9 - 20004 - PHQ-9 Billing: Yes ([id number]) Advance Care Planning Forms completed: Health Care Proxy (form given to pt), MOLST (form given to pt, explained) and Living will (done, according to pt) Time spent: 1-15 minutes, on File Actual minutes spent: 12
== END 2024-11-06 14:53 | disposition home or self-care (01) ==
PROVIDERS: PCP Nurse Practitioner Family; Visit Provider Nurse Practitioner Family
DX: Z00.00 Encounter for general adult medical examination without abnormal findings (principal); E55.9 Vitamin D deficiency, unspecified

== ENCOUNTER → 2024-11-06 14:02 | Outpatient (BNVA) | payer MEDICARE, OTHER, SELFPAY | PROVIDERS: PCP Nurse Practitioner Family; Visit Provider Nurse Practitioner Family | DX: Z00.00 Encounter for general adult medical examination without abnormal findings (principal); E55.9 Vitamin D deficiency, unspecified; I10 Essential (primary) hypertension; E78.5 Hyperlipidemia, unspecified | CPT/HCPCS: 96127 ==

== ENCOUNTER 2024-12-11 10:22 | Outpatient (AMB) | payer MEDICARE, OTHER, SELFPAY ==
--- NOTE | 2024-12-11 10:08 | A.OFFVIS_ITS ---
Intake Visit Reasons: (TV) F/U [facility] Allergies lactose Allergy (Unknown, Verified 11/06/24 16:49) lactose intolerant GI upset sulfamethoxazole Allergy (Unknown, Verified 11/06/24 16:49) vomiting tizanidine Allergy (Verified 11/06/24 16:49) Vomiting doxycycline Adverse Reaction (Severe, Verified 11/06/24 16:49) Diarrhea HPI Comments Details: Pt presents in followup for [facility], visit #10. Starting weight: 203 Weight at last visit: 192.2 Weight today: Total weight change since starting program: Continues to help her with treatment for MS/infusion. Next time traveling to [place] will be January. Was traveling quite a bit since last OV, eating out 2 meals a day for weeks . Was having shakes for breakfast often, would have bars as snacks. BP well controlled today, pt actually didn't take her meds today. Tries to check it daily at home. Current meal plan: breakfast- Pure protein shake with half scoop (12.5g), collagen (9g), greens powder, metamucil lunch- 4 forks protein (2 eggs, cottage cheese, or bulgarian yogurt) with fruit or veg snack- Pure protein bar dinner- 6 forks protein with salad or veg after dinner may have sugar free fudgesicle has been having some fruit as midmorning snack Exercise: Kandis Rose, at least 1 mile usually every day has been using a weekly progress report with [employer], explored [employer] and [employer] videos swimming 2x/week also has a cubii - under desk elliptical has knee pain/instability- had to go to urgent care recently where she had an x- ray, may need another R knee surgery; also had ingrown toenail on each foot- limited her walking [facility] Medical History Abdominal pain Rash Contact dermatitis Encounter for medication monitoring Upper respiratory tract infection Impacted cerumen, bilateral Fatigue Dietary counseling Screening for cervical cancer Physical exam Tubular adenoma of colon Diverticular disease Acute diverticulitis Macular degeneration Seborrheic keratosis Dyslipidemia Depression Asthma COPD (chronic obstructive pulmonary disease) HTN (hypertension) Hypothyroid Fibromyalgia Lumbar spondylosis Surgical History History of colonoscopy Hx laparoscopic cholecystectomy History of surgery H/O breast biopsy History of hysterectomy History of knee replacement procedure of right knee History of knee replacement procedure of left knee Family History Father Unknown family medical history Mother Unknown family medical history Social History Household Members: Spouse Housing: House Do you presently have visiting nurse or other home services: No Alcohol intake: never Patient Tobacco Use Status: Never used Tobacco e-Cigarette/Vaping Use: Never Used Second Hand Smoke Exposure: No Advance Directives Date on File: 01/08/22 service: No Current occupational status: disabled Cognitive needs: No Hearing needs: No Vision needs: No
--- NOTE | 2024-12-11 10:20 | A.OFFVIS_ITS ---
VS Expanded 12/11/24 10:25 Height 5 ft 3.5 in Weight 194 lb BMI 33.8 Intake Visit Reasons: (TV) F/U [facility] Allergies lactose Allergy (Unknown, Verified 11/06/24 16:49) lactose intolerant GI upset sulfamethoxazole Allergy (Unknown, Verified 11/06/24 16:49) vomiting tizanidine Allergy (Verified 11/06/24 16:49) Vomiting doxycycline Adverse Reaction (Severe, Verified 11/06/24 16:49) Diarrhea Medication List - Last Reconciled 12/11/24 by BRENDA Cooley albuterol sulfate 90 mcg/actuation 2 puffs inhalation Q4-6H PRN bupropion HCl XL 300 mg PO QAM calcium carbonate (Calcium 600) 600 mg PO BID 90 days cholecalciferol (vitamin D3) 25 mcg PO DAILY 90 days coenzyme Q10 100 mg PO DAILY cyclobenzaprine 10 mg PO DAILY PRN diclofenac potassium 50 mg PO BID PRN 90 days docusate sodium (Colace) 100 mg PO BID fluticasone propion-salmeterol 500-50 mcg/dose (Wixela Inhub) 1 ea PO BID PRN gabapentin 1,200 mg (2 x 600 mg) PO DAILY 60 days levothyroxine 125 mcg PO QAM 90 days loratadine 10 mg PO DAILY losartan 25 mg PO DAILY lutein 40 mg PO DAILY magnesium 250 mg PO DAILY metoprolol succinate ER 25 mg PO DAILY 90 days montelukast 10 mg PO DAILY 90 days multivitamin 1 tab PO DAILY psyllium husk (Metamucil) 2 tsp PO DAILY rosuvastatin 20 mg PO BEDTIME 90 days sennosides (senna) 17.2 mg (2 x 8.6 mg) PO BEDTIME 30 days sumatriptan succinate (Imitrex) 25 mg PO Q2-4H PRN 10 days tiotropium bromide (Spiriva with HandiHaler) 1 cap inhalation DAILY tramadol 50 mg PO DAILY PRN vit C-E-zinc jv-vayv-ndo-zeax 250 mg-200 unit -12.5 mg-1 mg (ICaps AREDS2) 1 cap PO DAILY HPI Comments Details: Pt presents in followup for [facility], visit #10. Starting weight: 203 Weight at last visit: 192.2 Weight today: 194 Total weight change since starting program: -9 Was traveling to [place], 2 weeks. Was dealing with a bleeding hemorrhoid. Tried to increase water intake and fiber. Going to follow up with GI. Has not been able to swim due to this. While away was still trying to use protein shakes and bars, did gain about 5lbs but was able to lose a few lbs since returning home. Having surgery in April for kneecap reconstruction. Will be non weight bearing for 7 weeks. Current meal plan: breakfast- Pure protein shake with half scoop (12.5g), collagen (9g), greens po wder, metamucil lunch- 4 forks protein (2 eggs, cottage cheese, or frisian yogurt) with fruit or veg snack- Pure protein bar dinner- 6 forks protein with salad or veg after dinner may have sugar free fudgesicle has been having some fruit as midmorning snack Exercise: Kandis Rose, at least 1 mile usually every day has been using a weekly progress report with [employer], explored Sit and Be Fit videos swimming 2x/week usually also has a cubii - under desk elliptical has knee pain/instability- had to go to urgent care recently where she had an x- ray, may need another R knee surgery; also had ingrown toenail on each foot- limited her walking [facility] Medical History Abdominal pain Rash Contact dermatitis Encounter for medication monitoring Upper respiratory tract infection Impacted cerumen, bilateral Fatigue Dietary counseling Screening for cervical cancer Physical exam Tubular adenoma of colon Diverticular disease Acute diverticulitis Macular degeneration Seborrheic keratosis Dyslipidemia Depression Asthma COPD (chronic obstructive pulmonary disease) HTN (hypertension) Hypothyroid Fibromyalgia Lumbar spondylosis Surgical History History of colonoscopy Hx laparoscopic cholecystectomy History of surgery H/O breast biopsy History of hysterectomy History of knee replacement procedure of right knee History of knee replacement procedure of left knee Family History Father Unknown family medical history Mother Unknown family medical history Social History Household Members: Spouse Housing: House Do you presently have visiting nurse or other home services: No Alcohol intake: never Patient Tobacco Use Status: Never used Tobacco e-Cigarette/Vaping Use: Never Used Second Hand Smoke Exposure: No Advance Directives Date on File: 01/08/22 service: No Current occupational status: disabled Cognitive needs: No Hearing needs: No Vision needs: No Telehealth Telehealth Telehealth Platform: Telephone Location of provider rendering services: other Location of patient: address on file Patient Identification confirmed using: Name, : Yes Telehealth method: voice only Patient verbally consented to treatment: Yes Patient verbally consented to billing insurance company: Yes Patient informed of any privacy concerns related to visit: Yes Minutes spent on Phone/Video with Pt.: 16 Assessment & Plan Assessment & Plan (1) Obesity: Code(s): E66.9 - Obesity, unspecified Category: Medical Plan She plans to come in for a weight check later this week. She is interested in support groups and hopefully will have more info later this week. RTC 3mo.
[2024-12-11 10:25] VITALS: BMI 33.8
--- OUTSIDE RECORDS SUMMARY | 2024-12-11 12:19 | XMS_ITS ---
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 Name Role Phone Marcos Samuels Primary Care Provider Susanne Austin Unavailable [phone] Allergies Allergen (clinical drug ingredient) Drug/Non Drug Allergy documented on EMR Reaction Allergy Type Onset Date Status sulfamethoxazole / trimethoprim Bactrim Unknown Drug Allergy Active Penicillin Unknown Drug Allergy Active doxycycline Doxycycline diarrhea, yeast infection, stomach issues Drug Allergy Active Iodinated contrast media (substance) Iodinated Diagnostic Agents Unknown Drug Allergy Active lactose Lactose (Intolerance) Unknown Drug Allergy Active REASON FOR VISIT Ingrown nail(s) Medications Medication SIG (Take, Route, Frequency, Duration) Notes Start Date End Date Status Ammonium Lactate 12 % 1 application Externally to affected areas of dry skin to feet except for between the toes Twice a day for 30 days Active Imitrex Active Doxycycline Hyclate 100 MG 1 capsule Orally Once a day for 10 day(s) 07/13/2023 Not-Taking Cranberry Not-Taking Amoxicillin 875 MG 1 tablet Orally Twice a day for 5 day(s) 09/21/2024 Active Vitamin D3 2000 UNIT 1 capsule Orally Once a day for 30 day(s) Active Vitamin C Active traMADol HCl 50 MG Orally A ctive Claritin Active Wellbutrin 300 Activ e Lutein 40 MG 1 capsule with a meal Orally Once a day for 30 day(s) Active Rosuvastatin Calcium 10 MG 1 tablet Orally Once a day for 30 day(s) Active PreserVision AREDS 2 - as directed Orally Active Montelukast Sodium A ctive Magnesium Active Calcium Active Diclofenac Active Levothyroxine Sodium 125 MCG 1 capsule Orally Once a day Active Gabapentin 600 MG 1 capsule Orally twice daily Active Cetirizine HCl Allergy med PRN Active Metaproterenol Sulfate - as directed Active Colchicine Not-Takin g Allopurinol Not-Taki ng Voltaren 1 % as directed Transdermal bid for 30 days 08/12/2014 Not-Taking Losartan Potassium 100 MG 1 tablet Orally Once a day Active Niacin Not-Taking Physical Therapy . . . 2-3x/week for 3-4 weeks 07/09/2019 Not-Taking Night Splint AFO - L1930 as directed 07/09/2019 Not-Taking Provigil Not-Taking Gemfibrozil Not-Taki ng Cyclobenzaprine HCl Not-Taking Losartan Potassium 50 MG 1 tablet Orally Once a day for 30 day(s) Not-Taking Social History Tobacco Use: Social History Observation Description Date Details (start date - stop date) Never Smoker NA - NA Tobacco use other than smoking: Question Answer Notes Are you an other tobacco user? No Tobacco Control (Standard) Question Answer Notes Tobacco use: Nonsmoker Additional Findings: Tobacco non-user Current no nsmoker AUDIT-C (Standard) Question Answer Notes Did you have a drink containing alcohol in the p ast year? No Points 0 Interpretation Negative Vital Signs Height 5ft 4in in 10/25/2024 Weight 187 lbs 10/25/2024 BMI 32.09 kg/m2 10/25/2024 Blood pressure systolic 120 mm Hg 10/25/19 25 Blood pressure diastolic 70 mm Hg 025 Encounters Encounter Location Date Provider Diagnosis [facility] [address] [address] 10/25/2024 Susanne Garrison Ingrown toenail L60.0 Assessments Encounter Date Diagnosis (ICD Code) Assessment Notes Treatment Notes Treatment Clinical Notes Section Notes 10/25/2024 Ingrown toenail (ICD-10 - L60.0) Plan Of Treatment Next Appt Details Follow Up: prn, Reason: Progress Notes * Radha JEAN LDOB: (64 yo F)Acc No.[id number]:10/25/2024 Progress Note Patient:?Radha JEAN Provider:?Susanne Garrison DPM :1960???Age:64 Y???Sex:Female D ate:10/25/2024 Address:[address] [id number] Pcp:JOSELO Cruz Subjective: * Chief Complaints: * ???Ingrown nail(s) * HPI: ???Ingrown toenail:?Nature:?aching.?Location:?Fourth toe, Right foot.?Treatments:?antibiotic ointment.? * ROS:?General/Constitutional:?Nausea?denies.?Vomiting?denies.?Hunger Thirst?denies.?Loss appetite?denies.?Chills?denies.?Fatigue?admits.?Fever?denies.?Night Sweats?denies.?Unexplained weight loss?denies.?Unexplained weight gain?denies.?HEENTM:?Dentures?denies.?Dizziness?denies.?Glasses/contacts?admits.?Retinopathy?de nies.?Blurred/double vision?denies.?TMJ?admits.?Discharge/drainage?denies.?Implants?denies.?Sore throat?denies.?Dental implants?denies.?Hard of hearing ?denies.?Difficulty chewing/swallowing/speaking?denies.?Nose bleeds?denies.?Sore mouth?denies.?Respiratory:?On Oxygen?denies.?Pneumonia/pleurisy?admits.?Bronchitis?denies.?Emphysema?denies.?C oughing?denies.?Cough blood?denies.?Shortness of breath?admits.?Wheezing?admits.?Cardiovascular:?Pacemaker?denies.?MVP?denies.?WPW?denies.?CHF?denies.?Heart attack?denies.?Septal defect?denies.?Rapid beat?denies.?Chest pain ?denies.?Atrial Fib.?denies.?Murmur/Palpitations?denies.?Gastrointestinal:?Hemorrhoids?denies.?Stomach/Abdominal pain?denies.?Dark blood stool?denies.?Irritable bowel ?denies.?Constipation?denies.?Diarrhea?denies.?Hematology:?Swelling?denies.?Clots?denies.?Varicose Veins?denies.?Bruising?denies.?Bleeding problem?denies.?Genitourinary:?Blood urine?denies.?Frequent/Painfu/urination/bladder control?denies.?Kidney stones?denies.?Infection (UTI)?denies.?Nephropathy?denies.?sex trans dis (STD)?denies.?Prostate?denies.?Musculoskeletal:?Hammertoes?denies.?Bunions?admits.?Back Pain?denies.?Muscle Cramps/ Resting?denies.?Muscle cramps / walking?denies.?Generalized aches and pains?denies.?Weakness?denies.?Integ.:?Becerra?denies.?Scars?denies.?Corns/calluses?denies.?Ingrown nails?denies.?Painful nails?denies.?Open Sores?denies.?Rashes?denies.?Neurologic:?Difficulty sleeping?admits.?Brain disorder?denies.?Numbness?denies.?Balance trouble?denies.?Confusion?denies.?Fainting/blackouts?denies.?Tingling?denies.?Tr emors?denies.? * Medical History:? * Surgical History:?right knee cap repair 2015breast surgery 11/1998hysterectomy 07/2008cholecystectomy 11/1983left knee replacement 2013hip surgery-tendon jewbwi-xooszzbrha-tiabm tibial band repair colonoscopy 12/2021 * Hospitalization/Major Diagno stic Procedure:?Denies Past Hospitalization * Family History:?Mother: gabriele morley, diagnosed with Other specified conditions influencing health status.?Father: , diagnosed with Other specified conditions influencing health status.?Siblings: .? patient is adopted. * Social History:?Tobacco Use:?Tobacco use other than smoking?Are you an other tobacco user??No ?Tobacco Control (Standard)?Tobacco use:?Nonsmoker ?Additional Findings: Tobacco non-user?Current nonsmoker ???Drugs/Alcohol:?Drugs?Have you used drugs other than those for medical reasons in the past 12 months??No ???Miscellaneous:?Caffeine: yes, 2-cups per day. ?Children: no, none. ?Exercise: yes, walking. ?Marital status: . 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 ???Drug/Alcohol:?AUDIT-C (Standard)?Did you have a drink containing alcohol in the past year??No ?Points?0 ?Interpretation?Negative * Medications:?TakingLosartan Potassium 100 MG Tablet 1 tablet Orally Once a day Metaproterenol Sulfate - Powder as directed Diclofenac Calcium Cetirizine HCl , Notes to Pharmacist: Allergy med PRNGabapentin 600 MG Tablet 1 capsule Orally twice daily Levothyroxine Sodium 125 MCG Tablet 1 capsule Orally Once a day Lutein 40 MG Capsule 1 capsule with a meal Orally Once a day Magnesium Montelukast Sodium PreserVision AREDS 2 - Capsule as directed Orally Rosuvastatin Calcium 10 MG Tablet 1 tablet Orally Once a day traMADol HCl 50 MG Tablet Orally Vitamin C Vitamin D3 2000 UNIT Capsule 1 capsule Orally Once a day Wellbutrin 300 MG Claritin Imitrex Ammonium Lactate 12 % Cream 1 application Externally to affected areas of dry skin to feet except for between the toes Twice a day Amoxicillin 875 MG Tablet 1 tablet Orally Twice a day Taking Losartan Potassium 100 MG Tablet 1 tablet Orally Once a day Taking Metaproterenol Sulfate - Powder as directed Taking Diclofenac Taking Calcium Taking Cetirizine HCl , Notes to Pharmacist: Allergy med PRNTaking Gabapentin 600 MG Tablet 1 capsule Orally twice daily Taking Levothyroxine Sodium 125 MCG Tablet 1 capsule Orally Once a day Taking Lutein 40 MG Capsule 1 capsule with a meal Orally Once a day Taking Magnesium Taking Montelukast Sodium Taking PreserVision AREDS 2 - Capsule as directed Orally Taking Rosuvastatin Calcium 10 MG Tablet 1 tablet Orally Once a day Taking traMADol HCl 50 MG Tablet Orally Taking Vitamin C Taking Vitamin D3 2000 UNIT Capsule 1 capsule Orally Once a day Taking Wellbutrin 300 MG Taking Claritin Taking Imitrex Taking Ammonium Lactate 12 % Cream 1 application Externally to affected areas of dry skin to feet except for between the toes Twice a day Taking Amoxicillin 875 MG Tablet 1 tablet Orally Twice a day Not-Taking/PRNCranberry Doxycycline Hyclate 100 MG Capsule 1 capsule Orally Once a day Losartan Potassium 50 MG Tablet 1 tablet Orally Once a day Cyclobenzaprine HCl Night Splint AFO - L1930 as directed Physical Therapy . . . . 2-3x/week Niacin Gemfibrozil Provigil Allopurinol Colchicine Voltaren 1 % Gel as directed Transdermal bid Medication List reviewed and reconciled with the patientNot-Taking/PRN Cranberry Not-Taking/PRN Doxycycline Hyclate 100 MG Capsule 1 capsule Orally Once a day Not-Taking/PRN Losartan Potassium 50 MG Tablet 1 tablet Orally Once a day Not-Taking/PRN Cyclobenzaprine HCl Not-Taking/PRN Night Splint AFO - L1930 as directed Not-Taking/PRN Physical Therapy . . . . 2-3x/week Not- Taking/PRN Niacin Not-Taking/PRN Gemfibrozil Not-Taking/PRN Provigil Not-Taking/PRN Allopurinol Not-Taking/PRN Colchicine Not-Taking/PRN Voltaren 1 % Gel as directed Transdermal bid Medication List reviewed and reconciled with the patient * Allergies:?PenicillinBactrim Lactose (Intolerance)Iodinated Diagnostic AgentsDoxycycline: diarrhea, yeast infection, stomach issuesyes[Allergies Verified] Objective: * Vitals:?Ht:5ft 4in, Wt:187, BMI:32.09, Shoe size:8.5-9, BP:120/70mm Hg, Ht-cm: 162.56 cm, Wt-k.82 kg. * Examination: ???Ingrown Nail: ?INSPECTION:?Reveals incurvation, pain on palpation, groove hypertrophy, T8, Medial nail border.?Dermatologic: ?SKIN FINDINGS:?Skin exam reveals normal color, texture, elasticity, and turgor. There are no masses, nor excrescences. The interspaces are clear, B/L.?General Examination: ?GENERAL APPEARANCE:?pleasant, alert, well nourished, well developed, well hydrated, with good attention to hygene/body habitus, and in no acute distress.?ORIENTED:?person,place, and time.?Neurological: ?SENSORY:?Neurological exam reveals intact sensorium, pain sensation normal, vibration sensation intact, pinprick sensation is normal in the lower extremities, Pt denies, anesthesia, burning, paresthesia, tingling, B/L.?Vascular: ?DP PULSES (B):?2/4, B/L.?PT PULSES (B):?2/4, B/L.?CAPILLARY FILL TIME:?3 secs. per digit, B/L.?TROPHIC CONDITION-TEXTURE/ELASTICITY/TURGOR/HAIR GROWTH (B):?normal, B/L.?TEMPERTURE GRADIENT (C):?warm to cool, proximal to distal, B/L.?PIGMENTATION:?normal, B/L.?EDEMA (C):?no edema.?TELANGECTASIA:?absent.?VARICOSITIES:?absent.?Orthopedic: ?MUSCLE STRENGTH:?5/5 all groups in a symmetrical fashion , B/L.? Assessment: * Assessment: 1.?Ingrown toenail - L60.0 ( Primary)???Specify :Acute problem, Uncomplicated (3)??? Plan: * Treatment: * Procedure Codes:? * Preventive Medicine:? ??Counseling:?Discussion:?-13: Office or other outpatient visit for the evaluation and management of an established patient, which required a medically appropriate history and/or examination and LOW level of DECISION MAKING for: 1 STABLE ACUTE UNCOMPLICATED PROBLEM, 2 OR MORE MINOR PROBLEMS, OR 1 STABLE CHRONIC PROBLEM, THAT POSE(S) A LOW RISK FOR MORBIDITY/MORTALITY. The visit on the day of the encounter encompassed interpreting the data and educating the patient as to the nature of their condition, treatment options available according to their individual PMH, meds, allergies, and overall health/living conditions, as well as any potential risks or complications that may occur from a failure to adhere to, and participate in, the recommended course of therapy. The discussion included a complete verbal, and/or written explanation of the examination results, any x-rays taken, the proposed diagnosis, and outline of the treatment plan. A schedule for future care needs was also explained. The patient verbalized an understanding of the instructions at this time and agreed to be an active participant in their treatment. If the patient should think of any questions or concerns after the visit, I have encouraged the patient to call the office.?Abscess/Paraonychia/Ingrown Nails:?We discussed the possible etiologies (genetic, improper nail care, shoe gear, nail trauma) which may lead to ingrown nails and/or paronychial infections. We discussed and reviewed palliative/nonsurgical/deferring definitive treatment (vs) undergoing the treatment procedures of nail avulsion(s) or PNA, which may prevent recurrence and give more lasting results. The possible risks/complications such as worsened condition/delayed healing/nonhealing/failure/recurrence/infection, the potential benefits/advantages of decreased pain/deformity, as well as alterative treatment options including applying nail softening agents/nail groove packing were discussed. No guarantees were given regarding any outcome for any procedure. The patient was educated in the length of time for the affected nail to regrow once completely healed from a nail avulsion procedure. Once the condition has completely healed, the patient was consulted on proper nail care. Patient questions such as details of each procedure, varying time to heal, activity post procedure, and shoe gear were discussed and the answers were verbally confirmed fully understood, slant back performed with good relief of pain, pt to monitor for any signs of infection, pt should soak in warm water and epsom salts and apply antibotic ointment, call with any issues.? * Follow Up:?prn * Images: * Sign off status: Completed true * Provider:?Susanne Garrison DPM Date:?0 10/25/2024 Generated for Virgilio barreto/Alin/eTransmitting on:?12/11/2024 12:19 PM EDT History and Physical Notes * HPI (History of Present Illness) Category Sub-Category Detail Notes Category Not es Ingrown toenail Nature: aching Location: Fourth toe, Right fo ot Treatments: antibiotic ointment Examination Category Sub-Category Detail Notes Category Not es Ingrown Nail INSPECTION: Reveals incurvat ion, pain on palpation, groove hypertrophy, T8, Medial nail border Neurological SENSORY: Neurological exa m reveals intact sensorium, pain sensation normal, vibration sensation intact, pinprick sensation is normal in the lower extremities, Pt denies, anesthesia, burning, paresthesia, tingling, B/L Dermatologic SKIN FINDINGS: Skin exam reveal s normal color, texture, elasticity, and turgor. There are no masses, nor excrescences. The interspaces are clear, B/L ULCER: Orthopedic MUSCLE STRENGTH: 5/5 all groups in a symm etrical fashion , B/L General Examination GENERAL APPEARANCE: pleasant , alert, well nourished, well developed, well hydrated, with good attention to hygene/body habitus, and in no acute distress ORIENTED: person,place, and ti me Vascular DP PULSES (B): 2/4, B/L PT PULSES (B): 2/4, B/L CAPILLARY FILL TIME: 3 secs. per digit, B/L TEMPERTURE GRADIENT (C): warm to cool, p roximal to distal, B/L TROPHIC CONDITION-TEXTURE/ELASTICITY/TURGOR/HAIR GROWTH (B): normal, B/L EDEMA (C): no edema TELANGECTASIA: absent VARICOSITIES: absent PIGMENTATION: normal, B/L
--- OUTSIDE RECORDS SUMMARY | 2024-12-11 12:19 | XMS_ITS ---
Author Organization [facility] Address [address] [place] [address] Care Team Providers Care Tester Equipment Name Role Phone Marcos Samuels Primary Care Provider Unav Susanne Wolfe [phone] Medications Medication SIG (Take, Route, Fr equency, Duration) Notes Start Date End Date Status Amoxicillin 875 MG 1 tablet Orally Twic e a day for 5 day(s) 09/21/2024 Active Encounters Encounter Location Date Provider Diagnosis [facility] [address] [place] [address] 09/21/2024 Susanne Garrison Plan Of Treatment Medication Medication Name Sig Start Date Stop Date Notes Amoxicillin 875 MG 1 tablet Orally Twic e a day for 5 day(s) 09/21/2024 Progress Notes * Radha JEAN LDOB: (64 yo F)Acc No.[id number]:09/21/2024 Patient:?Radha JEAN :1960???Age:64 Y???Sex:Female [address] [place] [address] * Refills? Start Amoxicillin Tablet, 875 MG, Orally, 10, 1 tablet, Twice a day, 5 day(s) * true * Date:? Generated for Candisi ng/Faxing/eTransmitting on:?12/11/2024 12:18 PM EDT
--- OUTSIDE RECORDS SUMMARY | 2024-12-11 12:20 | XMS_ITS | Patient Health Record ---
Author Organization [facility]on [facility] Address [address] [place] [address] Care Team Providers Care Rack Pusher Name Role Phone Marcos Samuels Primary Care Provider Susanne Austin Unavailable [phone] John Levine Unavailable [phone] Allergies Allergen (clinical drug ingredient) Drug/Non Drug Allergy documented on EMR Reaction Allergy Type Onset Date Status sulfamethoxazole / trimethoprim Bactrim Unknown Drug Allergy Active Penicillin Unknown Drug Allergy Active doxycycline Doxycycline diarrhea, yeast infection, stomach issues Drug Allergy Active Iodinated contrast media (substance) Iodinated Diagnostic Agents Unknown Drug Allergy Active lactose Lactose (Intolerance) Unknown Drug Allergy Active Reason For Referral No Information Medications Medication SIG (Take, Route, Frequency, Duration) Notes Start Date End Date Status Metaproterenol Sulfate - as directed Active Ammonium Lactate 12 % 1 application Externally to affected areas of dry skin to feet except for between the toes Twice a day for 30 days Active Imitrex Active Claritin Active Wellbutrin 300 Activ e Losartan Potassium 100 MG 1 tablet Orally Once a day Active Doxycycline Hyclate 100 MG 1 capsule Orally Once a day for 10 day(s) 07/13/2023 Not-Taking Cranberry Not-Taking Amoxicillin 875 MG 1 tablet Orally Twice a day for 5 day(s) 09/21/2024 Active Vitamin D3 2000 UNIT 1 capsule Orally Once a day for 30 day(s) Active Vitamin C Active traMADol HCl 50 MG Orally A ctive Voltaren 1 % as directed Transdermal bid for 30 days 08/12/2014 Not-Taking Niacin Not-Taking Physical Therapy . . . 2-3x/week for 3-4 weeks 07/09/2019 Not-Taking Night Splint AFO - L1930 as directed 07/09/2019 Not-Taking Cyclobenzaprine HCl Not-Taking Colchicine Not-Takin g Allopurinol Not-Taki ng Provigil Not-Taking Gemfibrozil Not-Taki ng Lutein 40 MG 1 capsule with a meal Orally Once a day for 30 day(s) Active Levothyroxine Sodium 125 MCG 1 capsule Orally Once a day Active Gabapentin 600 MG 1 capsule Orally twice daily Active Cetirizine HCl Allergy med PRN Active Rosuvastatin Calcium 10 MG 1 tablet Orally Once a day for 30 day(s) Active Losartan Potassium 50 MG 1 tablet Orally Once a day for 30 day(s) Not-Taking PreserVision AREDS 2 - as directed Orally Active Montelukast Sodium A ctive Magnesium Active Calcium Active Diclofenac Active Immunizations Vaccine Route Administration Date Status Comme nts COVID-19 Moderna Vaccine Unknown 08/06/2021 Administered 12/24/2020 01/24/2021 Social History Tobacco Use: Social History Observation [...] ast year? No Points 0 Interpretation Negative Problems Problem Type SNOMED Code ICD Code Onset Dates Problem Status W/U Status Risk Notes Problem Acquired hallux valgus (70319619) Hallux valgus (acquired), left foot (M20.12) Active confirmed Problem Localized, primary osteoarthritis of the ankle and/or foot (101744508) Primary osteoarthrit is, right ankle and foot (M19.071) Active confirmed Problem Localized, primary osteoarthritis of the ankle and/or foot (440941072) Primary osteoarthrit is, left ankle and foot (M19.072) Active confirmed Problem Acquired hammer toe of right foot (8855662742823858) Other hammer toe(s) (acquired), right foot (M20.41) Active confirmed Problem Acquired hammer toe of left foot (4371668444342001) Other hammer toe(s) (acquired), left foot (M20.42) Active confirmed Problem Skin ulcer of toe of right foot with fat layer exposed (L97.512) Active confirmed Problem Skin ulcer of toe of left foot with fat layer exposed (L97.522) Active confirmed Vital Signs Blood pressure diastolic 70 mm Hg 10/25/2024 Height 5ft 4in in 10/25/2024 Blood pressure systolic 120 mm Hg 10/25/2024 Weight 187 lbs 10/25/2024 BMI 32.09 kg/m2 10/25/2024 Procedures Procedure Date Ordered Date Performed Result Body Sit e 37547-HAX 07/31/2024 N/A 22771-IJIHXUP SKIN/TISSUE 08/16/2024 N/A 29578-ZXU 09/04/2024 N/A 12407-PPJWTPF SKIN/TISSUE 09/20/2024 N/A Encounters Encounter Location Date Provider Diagnosis [address] [address] 01/23/2024 John Levine Ingrowing nail L60.0 ; Primary osteoarthritis, left ankle and foot M19.072 ; Primary osteoarthritis, right ankle and foot M19.071 ; Metatarsalgia, left foot M77.42 ; Metatarsalgia, right foot M77.41 ; Hallux valgus (acquired), left foot M20.12 ; Other hammer toe(s) (acquired), left foot M20.42 ; Other hammer toe(s) (acquired), right foot M20.41 and Tinea unguium B35.[address] [address] 06/25/2024 John Levine Ingrowing nail L60.0 ; Primary osteoarthritis, left ankle and foot M19.072 ; Primary osteoarthritis, right ankle and foot M19.071 ; Metatarsalgia, left foot M77.42 ; Metatarsalgia, right foot M77.41 ; Hallux valgus (acquired), left foot M20.12 ; Other hammer toe(s) (acquired), left foot M20.42 ; Other hammer toe(s) (acquired), right foot M20.41 and Tinea unguium B35.[address] [address] 07/31/2024 Susanne Garrison Ingrown nail L60.[address] [facility] [address] 08/16/2024 Susanne Garrison Xerosis of skin L85.3 and Skin ulcer of toe of left foot with fat layer exposed L97.522 [facility] [address] [facility] [address] [place] [address] 09/04/2024 Susanne Garrison Ingrown nail L60.[address] [address] 09/20/2024 Susanne Garrison Skin ulcer of toe of right foot with fat layer exposed L97.[address] [address] 10/25/2024 Susanne Garrison Ingrown toenail L60.[address] [address] 01/23/2024 John Levine [address] [address] 08/01/2024 Susanne Garrison [address] [address] 09/21/2024 Susanne Garrison Assessments Encounter Date Diagnosis (ICD Code) Assessment Notes Treatment Notes Treatment Clinical Notes Section Notes 01/23/2024 Ingrowing nail (ICD-10 - L60.0) 01/23/2024 Primary osteoarthritis, left ankle and foot (ICD-10 - M19.072) 06/25/2024 Ingrowing nail (ICD-10 - L60.0) 06/25/2024 Primary osteoarthritis, left ankle and foot (ICD-10 - M19.072) 07/31/2024 Ingrown nail (ICD-10 - L60.0) 08/16/2024 Xerosis of skin (ICD-10 - L85.3) 08/16/2024 Skin ulcer of toe of left foot with fat layer exposed (ICD-10 - L97.522) Patient Educated with: WOUND CARE INSTRUCTIONS.p df (WOUND CARE INSTRUCTIONS.p df) 09/04/2024 Ingrown nail (ICD-10 - L60.0) 10/25/2024 Ingrown toenail (ICD-10 - L60.0) 09/20/2024 Skin ulcer of toe of right foot with fat layer exposed (ICD-10 - L97.512) Patient Educated with: WOUND CARE INSTRUCTIONS.p df (WOUND CARE INSTRUCTIONS.p df) 06/25/2024 Primary osteoarthritis, right ankle and foot (ICD-10 - M19.071) 01/23/2024 Primary osteoarthritis, right ankle and foot (ICD-10 - M19.071) 01/23/2024 Metatarsalgia, left foot (ICD-10 - M77.42) 06/25/2024 Metatarsalgia, left foot (ICD-10 - M77.42) 06/25/2024 Metatarsalgia, right foot (ICD-10 - M77.41) 01/23/2024 Metatarsalgia, right foot (ICD-10 - M77.41) 01/23/2024 Hallux valgus (acquired), left foot (ICD-10 - M20.12) 06/25/2024 Hallux valgus (acquired), left foot (ICD-10 - M20.12) 01/23/2024 Other hammer toe(s) (acquired), left foot (ICD-10 - M20.42) 06/25/2024 Other hammer toe(s) (acquired), left foot (ICD-10 - M20.42) 01/23/2024 Other hammer toe(s) (acquired), right foot (ICD-10 - M20.41) 06/25/2024 Other hammer toe(s) (acquired), right foot (ICD-10 - M20.41) 06/25/2024 Tinea unguium (ICD-10 - B35.1) 01/23/2024 Tinea unguium (ICD-10 - B35.1) 08/16/2024 Other Patient Educated with: WOUND CARE INSTRUCTIONS.p df (WOUND CARE INSTRUCTIONS.p df) 09/20/2024 Other Patient Educated with: WOUND CARE INSTRUCTIONS.p df (WOUND CARE INSTRUCTIONS.p df) Plan Of Treatment Pending Test Test Name Order Date X ray : Foot, left 3V 07/09/2019 X ray : Foot, left 3V 02/10/2022 X ray : Foot, right 3V 02/10/2022 X ray : Foot, right 3V 07/22/2014 X ray : Foot, right 3V 07/09/2019 72298-Sxjp Destruction, 1-14 12/16/2014 84860-Njuj Destruction, 1-14 01/16/2015 07643-VAT 07/31/2024 82933-TPP 09/04/2024 75480-BOWTBAC SKIN/TISSUE 09/20/2024 21298-GKKHOJK SKIN/TISSUE 08/16/2024 Insurance Providers Payer Name Payer Address Payer Phone Subscriber Number Group Number Insured Name Patient Relationship to Insured Coverage Start Date Coverage End Date Medicare National Gov[employer] Sv[employer] [address] [place] [address] [id number] Radha Jean Self - patient is the insured for Life [address] [place] [address] [id number] Radha Jean Self - patient is the insured Medical (General) History Medical History History ICD Code Arthritis asthma Back,Hip,and Knee pain Broken bones Hyperlipidemia Depression Diverticulosis Fibromyalgia Hypercholesterolemia Gout Headaches Sinus conditions Thyroid disorder High blood pressure Osteoporosis Sciatica Measles Mumps Joint implants/screws Scoliosis Surgical History Surgery Date(Month/Year) right knee cap repair 2014 breast surgery 11/1998 hysterectomy 07/2008 cholecystectomy 11/1983 left knee replacement 2012 hip surgery-tendon rxhdch-aofiedbhje-pbw an tibial band repair colonoscopy 12/2021
--- OUTSIDE RECORDS SUMMARY | 2024-12-11 12:20 | XMS_ITS ---
Author Organization [facility] Address [address] [place] [address] Care Team Providers Care Can Runner Name Role Phone Aj JOSUE, Marcos Primary Care Provider Unav ailable Susanne Garrison Unavailable [phone] REASON FOR VISIT X CHG Encounters Encounter Location Date Provider Diagnosis [facility] [address] [place] [address] 10/25/2024 Susanne Garrison Plan Of Treatment No Information Progress Notes * Radha JEAN LDOB: (64 yo F)Acc No.[id number]:10/25/2024 Progress Note Patient:?Radha JEAN Leelee Provider:?Susanne Garrison DPM :1960???Age:64 Y???Sex:Female D ate:10/25/2024 Address: [address] [facility] Pcp:JOSELO Cruz Subjective: * Chief Complaints: * ???1. X CHG. * Medical History:? Objective: * Vitals:? Assessment: Plan: * Treatment: * Images: * The named appointment provid er may or may not be the originator of this progress note, and it is not deemed complete until electronically signed by the appointment provider. Sign off status: Pending * Provider:?Susanne Garrison DPM Date:?0 10/25/2024 Generated for Printi ng/Faxing/eTransmitting on:?12/11/2024 12:19 PM EDT
== END 2024-12-11 10:38 | disposition home or self-care (01) ==
LOC: HO.HBS 10:22
PROVIDERS: PCP Nurse Practitioner Family; Visit Provider Physician Assistant Surgical
DX: E66.811 Obesity, class 1 (principal); Z68.33 Body mass index [BMI] 33.0-33.9, adult
CPT/HCPCS: 99214; G2211

== ENCOUNTER 2025-01-25 07:12 | Outpatient (REF) | payer MEDICARE, OTHER, SELFPAY ==
--- OUTSIDE RECORDS SUMMARY | 2025-01-25 07:14 | XMS_ITS ---
Author Organization [facility] Address [address] [place] [address] Care Team Providers Care Product Responsibility Liaison Name Role Phone Marcos Samuels Primary Care Provider Unav Susanne Wolfe [phone] Medications Medication SIG (Take, Route, Fr equency, Duration) Notes Start Date End Date Status Amoxicillin 875 MG 1 tablet Orally Twic e a day for 5 day(s) 09/21/2024 Active Encounters Encounter Location Date Provider Diagnosis [facility] [address] [place] [address] 09/21/2024 Susanne Garrison Plan Of Treatment Medication Medication Name Sig Start Date Stop Date Notes Amoxicillin 875 MG 1 tablet Orally Twic e a day for 5 day(s) 09/21/2024 Progress Notes * Radha JEAN LDOB: (64 yo F)Acc No.[id number]:09/21/2024 Patient:?Radha JEAN :1960???Age:64 Y???Sex:Female Address:[address] [place] [address] * Refills? Start Amoxicillin Tablet, 875 MG, Orally, 10, 1 tablet, Twice a day, 5 day(s) * true * Date:? Generated for Candisi ng/Faraheelg/eTransmitting on:?01/25/2025 07:14 AM EDT
--- OUTSIDE RECORDS SUMMARY | 2025-01-25 07:14 | XMS_ITS | Patient Health Record ---
Author Organization [facility] leon [place] Address [address] [place] [address] Care Team Providers Care Paper Machine Operator Name Role Phone Marcos Samuels Primary Care Provider Susanne Austin Unavailable [phone] John Levine Unavailable [phone] Allergies Allergen (clinical drug ingredient) Drug/Non Drug [...] Status Risk Notes Problem Acquired hallux valgus (45292449) Hallux valgus (acquired), left foot (M20.12) Active confirmed Problem Localized, primary osteoarthritis of the ankle and/or foot (494364619) Primary osteoarthrit is, right ankle and foot (M19.071) Active confirmed Problem Localized, primary osteoarthritis of the ankle and/or foot (646683796) Primary osteoarthrit is, left ankle and foot (M19.072) Active confirmed Problem Acquired hammer toe of right foot (7668539983264220) Other hammer toe(s) (acquired), right foot (M20.41) Active confirmed Problem Acquired hammer toe of left foot (4144296940568860) Other hammer toe(s) (acquired), left foot (M20.42) [...] Ordered Date Performed Result Body Sit e 97907-STZ 07/31/2024 N/A 37628-CVIPXPF SKIN/TISSUE 08/16/2024 N/A 95811-UMI 09/04/2024 N/A 78470-WRBTZDJ SKIN/TISSUE 09/20/2024 N/A Encounters Encounter Location Date Provider Diagnosis [address] [address] 06/25/2024 John Levine Ingrowing nail L60.0 ; Primary osteoarthritis, left ankle and foot M19.072 ; Primary osteoarthritis, right ankle and foot M19.071 ; Metatarsalgia, left foot M77.42 ; Metatarsalgia, right foot M77.41 ; Hallux valgus (acquired), left foot M20.12 ; Other hammer toe(s) (acquired), left foot M20.42 ; Other hammer toe(s) (acquired), right foot M20.41 and Tinea unguium B35.[address] [address] 07/31/2024 Susanne Garrison Ingrown nail L60.[address] [address] 08/16/2024 Susanne Garrison Xerosis of skin L85.3 and Skin ulcer of toe of left foot with fat layer exposed L97.522 [facility] [address] [address] 09/04/2024 Susanne Garrison Ingrown nail L60.[address] [address] 09/20/2024 Susanne Garrison Skin ulcer of toe of right foot with fat layer exposed L97.512 [facility] [address] [address] 10/25/2024 Susanne Garrison Ingrown toenail L60.[address] [facility] [address] 08/01/2024 [facility] [address] 09/21/2024 Susanne Garrison Assessments Encounter Date Diagnosis (ICD Code) Assessment Notes Treatment Notes Treatment Clinical Notes Section Notes 06/25/2024 Ingrowing nail (ICD-10 - L60.0) 06/25/2024 [...] right ankle and foot (ICD-10 - M19.071) 06/25/2024 Metatarsalgia, left foot (ICD-10 - M77.42) 06/25/2024 Metatarsalgia, right foot (ICD-10 - M77.41) 06/25/2024 Hallux valgus (acquired), left foot (ICD-10 - M20.12) 06/25/2024 Other hammer toe(s) (acquired), left foot (ICD-10 - M20.42) 06/25/2024 Other hammer toe(s) (acquired), right foot (ICD-10 - M20.41) 06/25/2024 Tinea unguium (ICD-10 - B35.1) 08/16/2024 Other [...] X ray : Foot, right 3V 07/09/2019 21610-Igbx Destruction, 1-12/16/2014 75426-Sezy Destruction, -01/16/2015 02156-FRL 07/31/2024 82560-RDV 09/04/2024 35905-NJVACGY SKIN/TISSUE 09/20/2024 94086-JSHWTNQ SKIN/TISSUE 08/16/2024 Insurance Providers Payer Name Payer Address Payer Phone Subscriber Number Group Number Insured Name Patient Relationship to Insured Coverage Start Date Coverage End Date Medicare National Govt Svcs Inc [address] [facility] [address] [id number] Radha Jean Self - patient is the insured [employer] [address] [place] [address] [id number] Radha Jean Self - patient is the [...] 11/1983 left knee replacement 2012 hip surgery-tendon qogxjp-twzvkhblrl-zfj an tibial band repair colonoscopy 12/2021
--- OUTSIDE RECORDS SUMMARY | 2025-01-25 07:14 | XMS_ITS ---
Author Organization [facility] Address [address] [place] [address] Care Team Providers Care Air Brake Operator Name Role Phone Marcos Samuels Primary Care Provider Susanne Austin Unavailable [phone] Allergies Allergen (clinical drug ingredient) Drug/Non Drug [...] 025 Encounters Encounter Location Date Provider Diagnosis [facility] [address] [address] 10/25/2024 Susanne Garrison Ingrown toenail L60.0 Assessments Encounter Date Diagnosis (ICD Code) Assessment Notes Treatment Notes Treatment Clinical Notes Section Notes 10/25/2024 Ingrown toenail (ICD-10 - L60.0) Plan Of Treatment Next Appt Details Follow Up: prn, Reason: Progress Notes * Radha JEAN LDOB: (64 yo F)Acc No.[id number]:10/25/2024 Progress Note Patient:?Radha JEAN Provider:?Susanne Garrison DPM :1960???Age:64 Y???Sex:Female D ate:10/25/2024 Address:[address] [place] Pcp:JOSELO Cruz Subjective: * Chief Complaints: * [...] 11/1998hysterectomy 07/2008cholecystectomy 11/1983left knee replacement 2013hip surgery-tendon iefrgs-hotdsmlaam-rcwuj tibial band repair colonoscopy 12/2021 * Hospitalization/Major [...] yes, walking. ?Marital status: . 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 ???Drug/Alcohol:?AUDIT-C (Standard)?Did you have a drink containing [...] DPM Date:?0 10/25/2024 Generated for Virgilio barreto/Alin/eTransmitting on:?01/25/2025 07:14 AM EDT History and Physical Notes * HPI [...]
--- OUTSIDE RECORDS SUMMARY | 2025-01-25 07:15 | XMS_ITS ---
Author Organization [facility] Address [address] [place] [address] Care Team Providers Care Christian Science Healer Name Role Phone Aj JOSUE, Marcos Primary Care Provider Unav ailable Susanne Garrison Unavailable [phone] REASON FOR VISIT X CHG Encounters Encounter Location Date Provider Diagnosis [facility] [address] [place] [address] 10/25/2024 Susanne Garrison Plan Of Treatment No Information Progress Notes * Radha JEAN LDOB: (65 yo F)Acc No.[id number]:10/25/2024 Progress Note Patient:?Radha JEAN Leelee Provider:?Susanne Garrison DPM :1960???Age:64 Y???Sex:Female D ate:10/25/2024 Address: [address] [facility] Pcp:JOSELO Cruz Subjective: * Chief Complaints: * [...] Provider:?Susanne Garrison DPM Date:?0 10/25/2024 Generated for Candisi ng/Faraheelg/eTransmitting on:?01/25/2025 07:14 AM EDT
[2025-01-25 10:12] LABS: MANUAL DIFF FLAG NO
[2025-01-25 10:18] LABS: Basophils Percent Auto 0.5 % (0-2); Eosinophils Absolute Auto 0.3 X10*3/uL (0.0-0.4); Eosinophils Percent Auto 4.7 % (0-4); Hematocrit 43.7 % (37.0-47.0); Imm Gran Abs Auto 0.03 X10*3/uL (0.00-0.03); Imm Gran Pct Auto 0.4 % (0.0-0.4); Lymphocytes Percent Auto 40.8 % (20-40); Mean Corpuscular Hemoglobin 28.3 pg (27.0-33.0); Mean Corpuscular Volume 88.5 fL (80.0-98.0); Mean Platelet Volume 8.8 fL (9.4-12.3); Monocytes Absolute Auto 0.7 X10*3/uL (0.1-1.2); Monocytes Percent Auto 9.5 % (2-11); Neutrophils Absolute Auto 3.2 x10*3/uL (2.0-8.3); Neutrophils Percent Auto 44.1 % (45-73); Platelet Count 312 X10*3/uL (160-400); Red Blood Count 4.94 X10*6/uL (4.20-5.50); Red Cell Distribution Width 13.9 % (11.0-16.0); White Blood Count 7.3 X10*3/uL (4.8-10.8)
[2025-01-25 10:51] LABS: Alanine Aminotransferase 73 U/L (0-31); Albumin Level 3.9 g/dL (3.5-5.0); Alkaline Phosphatase 58 U/L (39-117); Anion Gap 8 (12-20); Aspartate Amino Transferase 51 U/L (5-31); Bilirubin Total 0.4 mg/dL (0.0-1.0); Blood Urea Nitrogen 11 mg/dL (9-16); Calcium 9.4 mg/dL (8.4-10.2); Carbon Dioxide 30 mmol/L (22-29); Chloride 109 mmol/L (96-108); Cholesterol 180 mg/dL (<200); Estimated Glomerular Filt Rate > 60; Glucose Fasting 81 mg/dL (60-99); HDL Cholesterol 56 mg/dL (>40); LDL Cholesterol Calculated 102 mg/dL (<100); Potassium 3.7 mmol/L (3.3-5.1); Sodium 143 mmol/L (135-145); TSH reflex Free T4 0.71 uIU/mL (0.32-4.0); Total Protein 6.3 g/dL (6.5-8.0); Triglycerides 114 mg/dL (<150); Vitamin D 25-OH Total 99.6 ng/mL (>30)
[2025-01-25 10:54] LABS: Appearance Urine Cloudy; Color Urine Dark Yellow; Glucose Urine UA Negative (Negative); Leukocyte Esterase Urine Small (1+) (Negative); Nitrite Urine Negative (Negative); PH 5.5 (5.0-9.0); UMIC TRIGGER UACC YES; Urine Blood Negative (Negative); Urine Ketones Trace mg/dL (Negative); Urine Protein Trace mg/dL (Neg-Trace)
[2025-01-25 11:24] LABS: Bacteria Urine None Seen (None Seen); Calcium Oxalate Crystals Urine Present; RBC Urine 0-2 /HPF (0-2); UACC Culture Trigger YES; WBC Urine 0-5 /HPF (0-5)
== END 2025-01-25 07:13 | disposition home or self-care (01) ==
LOC: HO.HMGCLDS 07:12
PROVIDERS: PCP Nurse Practitioner Family; Visit Provider Nurse Practitioner Family
DX: I10 Essential (primary) hypertension (principal); E55.9 Vitamin D deficiency, unspecified
CPT/HCPCS: 36415; 80053; 80061; 81001; 82306; 84443; 85025; 87086

== ENCOUNTER 2025-01-29 09:17 | Outpatient (REF) | payer MEDICARE, OTHER, SELFPAY ==
--- OUTSIDE RECORDS SUMMARY | 2025-01-29 10:07 | XMS_ITS ---
Author Organization [facility] Address [address] [place] [address] Care Team Providers Care Morning News Anchor Name Role Phone Marcos Samuels Primary Care Provider Unav Susanne Wolfe [phone] Medications Medication SIG (Take, Route, Fr equency, Duration) Notes Start Date End Date Status Amoxicillin 875 MG 1 tablet Orally Twic e a day for 5 day(s) 09/21/2024 Active Encounters Encounter Location Date Provider Diagnosis [facility] [address] [place] [address] 09/21/2024 Susanne Garrison Plan Of Treatment Medication Medication Name Sig Start Date Stop Date Notes Amoxicillin 875 MG 1 tablet Orally Twic e a day for 5 day(s) 09/21/2024 Progress Notes * Radha JEAN LDOB: (64 yo F)Acc No.[id number]:09/21/2024 Patient:?Radha JEAN :1960???Age:64 Y???Sex:Female Address:[address] [place] [address] * Refills? Start Amoxicillin Tablet, 875 MG, Orally, 10, 1 tablet, Twice a day, 5 day(s) * true * Date:? Generated for Candisi ng/Faraheelg/eTransmitting on:?01/29/2025 10:07 AM EDT
--- OUTSIDE RECORDS SUMMARY | 2025-01-29 10:08 | XMS_ITS ---
Author Organization [facility] Address [address] [place] [address] Care Team Providers Care Zigzag Topstitcher Name Role Phone Marcos Samuels Primary Care Provider Susanne Austin Unavailable [phone] Allergies Allergen (clinical drug ingredient) Drug/Non Drug [...] 025 Encounters Encounter Location Date Provider Diagnosis [facility] [address] [address] 10/25/2024 Susanne Garrison Ingrown toenail L60.0 Assessments Encounter Date Diagnosis (ICD Code) Assessment Notes Treatment Notes Treatment Clinical Notes Section Notes 10/25/2024 Ingrown toenail (ICD-10 - L60.0) Plan Of Treatment Next Appt Details Follow Up: prn, Reason: Progress Notes * Radha JEAN LDOB: (64 yo F)Acc No.[id number]:10/25/2024 Progress Note Patient:?Radha JEAN Provider:?Susanne Garrison DPM :1960???Age:64 Y???Sex:Female D ate:10/25/2024 Address:[address] [place] Pcp:JOSELO Cruz Subjective: * Chief Complaints: * [...] 11/1998hysterectomy 07/2008cholecystectomy 11/1983left knee replacement 2013hip surgery-tendon gcbdiw-zheiexrmot-scqai tibial band repair colonoscopy 12/2021 * Hospitalization/Major [...] yes, walking. ?Marital status: . ?Occupation: retired- [employer]. ???Drug/Alcohol:?AUDIT-C (Standard)?Did you have a drink containing [...] DPM Date:?0 10/25/2024 Generated for Virgilio barreto/Alin/eTransmitting on:?01/29/2025 10:07 AM EDT History and Physical Notes * [...]
--- OUTSIDE RECORDS SUMMARY | 2025-01-29 10:08 | XMS_ITS ---
Author Organization [facility] Address [address] [place] [address] Care Team Providers Care Software Applications Designer Name Role Phone Aj JOSUE, Marcos Primary Care Provider Unav ailable Susanne Garrison Unavailable [phone] REASON FOR VISIT X CHG Encounters Encounter Location Date Provider Diagnosis [facility] [address] [place] [address] 10/25/2024 Susanne Garrison Plan Of Treatment No Information Progress Notes * Radha JEAN LDOB: (65 yo F)Acc No.[id number]:10/25/2024 Progress Note Patient:?Radha JEAN Leelee Provider:?Susanne Garrison DPM :1960???Age:64 Y???Sex:Female D ate:10/25/2024 Address: [address] [facility] Pcp:JOSELO Cruz Subjective: * Chief Complaints: * [...] DPM Date:?0 10/25/2024 Generated for Candisi ng/Faraheelg/eTransmitting on:?01/29/2025 10:07 AM EDT
--- OUTSIDE RECORDS SUMMARY | 2025-01-29 10:08 | XMS_ITS | Patient Health Record ---
Author Organization [facility] [place] Address [address] [place] [address] Care Team Providers Care General Foreman Name Role Phone Marcos Samuels Primary Care Provider Susanne Austin Unavailable [phone] John Levine Unavailable [phone] Allergies Allergen (clinical drug ingredient) Drug/Non Drug [...] Status Risk Notes Problem Acquired hallux valgus (25113350) Hallux valgus (acquired), left foot (M20.12) Active confirmed Problem Localized, primary osteoarthritis of the ankle and/or foot (313137466) Primary osteoarthrit is, right ankle and foot (M19.071) Active confirmed Problem Localized, primary osteoarthritis of the ankle and/or foot (510233425) Primary osteoarthrit is, left ankle and foot (M19.072) Active confirmed Problem Acquired hammer toe of right foot (2745677393004187) Other hammer toe(s) (acquired), right foot (M20.41) Active confirmed Problem Acquired hammer toe of left foot (3158685714513125) Other hammer toe(s) (acquired), left foot (M20.42) [...] Ordered Date Performed Result Body Sit e 10391-RGY 07/31/2024 N/A 12943-FVWDKKK SKIN/TISSUE 08/16/2024 N/A 10439-XFC 09/04/2024 N/A 22184-MHMBWQY SKIN/TISSUE 09/20/2024 N/A Encounters Encounter Location Date Provider Diagnosis [address] [address] 06/25/2024 John Levine Ingrowing nail L60.0 ; Primary osteoarthritis, left ankle and foot M19.072 ; Primary osteoarthritis, right ankle and foot M19.071 ; Metatarsalgia, left foot M77.42 ; Metatarsalgia, right foot M77.41 ; Hallux valgus (acquired), left foot M20.12 ; Other hammer toe(s) (acquired), left foot M20.42 ; Other hammer toe(s) (acquired), right foot M20.41 and Tinea unguium B35.[address] [address] 07/31/2024 Susanne Garrison Ingrown nail L60.[address] [address] 08/16/2024 Susanne Garrison Xerosis of skin L85.3 and Skin ulcer of toe of left foot with fat layer exposed L97.522 [facility] [address] [address] 09/04/2024 Susanne Garrison Ingrown nail L60.[address] [address] 09/20/2024 Susanne Garrison Skin ulcer of toe of right foot with fat layer exposed L97.512 [facility] [address] [address] 10/25/2024 Susanne Garrison Ingrown toenail L60.[address] [facility] [address] 08/01/2024 [facility] [address] 09/21/2024 Susanne Garrison Assessments Encounter Date Diagnosis [...] X ray : Foot, right 3V 07/09/2019 30532-Uwpu Destruction, 1-12/16/2014 96146-Jsoi Destruction, -01/16/2015 28788-WNP 07/31/2024 69803-JDX 09/04/2024 25894-ATQIHYD SKIN/TISSUE 09/20/2024 57022-QWVNASX SKIN/TISSUE 08/16/2024 Insurance Providers Payer Name Payer Address Payer Phone Subscriber Number Group Number Insured Name Patient Relationship to Insured Coverage Start Date Coverage End Date Medicare National [employer] [address] [place] [address] [id number] Radha Jean Self - patient is the insured [employer] [address] [place] [address] [id number] Radha Jean Self - patient is the [...] 11/1983 left knee replacement 2012 hip surgery-tendon rkzfgg-ulxlievuai-una an tibial band repair colonoscopy 12/2021
[2025-01-30 08:11] LABS: HBS Num1 0.19 mIU/mL (0-7.99); HBc Num1 0.06 S/CO (0.00-0.79); Hepatitis B Core Antibody Nonreactive (Nonreactive); Hepatitis B Surface Antigen Negative (Negative); ~HepC Num1 0.05 S/CO (0.00-0.79); ~Hepatitis B Surface Antibody NONREACTIVE (Nonreactive); ~Hepatitis C Antibody Nonreactive (Nonreactive)
[2025-01-31 08:20] LABS: Hepatitis A Antibody IgM 0.16 Index (0-0.79); ~Hepatitis A Antibody IgM Nonreactive (Nonreactive)
== END 2025-01-29 09:18 | disposition home or self-care (01) ==
LOC: HO.HMGCLDS 09:17
PROVIDERS: PCP Nurse Practitioner Family; Visit Provider Nurse Practitioner Family
DX: R74.8 Abnormal levels of other serum enzymes (principal)
CPT/HCPCS: 36415; 86704; 86706; 86709; 86803; 87340

== ENCOUNTER → 2025-01-30 07:57 | Outpatient (BNVA) | payer MEDICARE, OTHER, SELFPAY | PROVIDERS: PCP Nurse Practitioner Family; Visit Provider Physician Assistant Surgical | DX: Z13.89 Encounter for screening for other disorder (principal) ==

== ENCOUNTER 2025-01-30 09:30 | Outpatient (REF) | payer MEDICARE, OTHER, SELFPAY ==
[2025-01-30 13:46] LABS: Appearance Urine Cloudy; Color Urine Dark Yellow; Glucose Urine UA Negative (Negative); Leukocyte Esterase Urine Small (1+) (Negative); Nitrite Urine Negative (Negative); PH 5.5 (5.0-9.0); Specific Gravity - Urine >= 1.030 (1.005-1.025); UMIC TRIGGER UACC YES; Urine Blood Negative (Negative); Urine Ketones 15 mg/dL (Negative); Urine Protein 30 (1+) mg/dL (Neg-Trace)
[2025-01-30 14:10] LABS: Bacteria Urine None Seen (None Seen); Calcium Oxalate Crystals Urine Present; RBC Urine 0-2 /HPF (0-2); Squamous Epithelial Cell Urine 0-2 /HPF (0-2); UACC Culture Trigger YES; WBC Urine 0-5 /HPF (0-5)
== END 2025-01-30 09:31 | disposition home or self-care (01) ==
LOC: HO.HMGCLNP 09:30
PROVIDERS: Visit Provider Nurse Practitioner Family
DX: I10 Essential (primary) hypertension (principal); R82.90 Unspecified abnormal findings in urine
CPT/HCPCS: 81001; 87086

== ENCOUNTER 2025-02-06 09:52 | Outpatient (AMB) | payer MEDICARE, OTHER, SELFPAY ==
[2025-02-06 09:55] VITALS: BP 172/87; PULSE 79; O2SAT 95; BMI 34.0
--- NOTE | 2025-02-06 09:55 | A.OFFVIS_ITS ---
Vital Signs 02/06/25 09:55 Height 5 ft 3.5 in Weight 195 lb BMI 34.0 BP 172/87 H Blood Pressure Location Rt brachial Position Sitting Pulse 79 Pulse Source Pulse Oximeter Pulse Oximetry (%) 95 Oxygen Delivery Method Room Air Intake Visit Reasons: rectal bleeding Intake Note: Pt presents to the office today for c/o rectal bleeding. Allergies lactose Allergy (Unknown, Verified 02/06/25 09:55) lactose intolerant GI upset sulfamethoxazole Allergy (Unknown, Verified 02/06/25 09:55) vomiting tizanidine Allergy (Verified 02/06/25 09:55) Vomiting doxycycline Adverse Reaction (Severe, Verified 02/06/25 09:55) Diarrhea HPI HPI rectal bleeding: Details: Assessment & Plan (1) Chronic idiopathic constipation: Code(s): K59.04 - Chronic idiopathic constipation Category: Medical (2) History of diverticulitis: Code(s): Z87.19 - Personal history of other diseases of the digestive system Category: Medical (3) Irritable bowel syndrome with both constipation and diarrhea: Code(s): K58.2 - Mixed irritable bowel syndrome Category: Medical Plan She is doing very well!! She did not do well with the creon, it caused diarrhea and increased her BS. She is now adding prunes to her regimen and this along with the senna and colace is working well. She has not needed the augmentin, but we will send a refill. She fell on her back! she has been having back spasms. ROV 6 mos. Medications: New amoxicillin-pot clavulanate 875-125 mg 1 tab PO BID 20 tabs 0RF Refilled sennosides (senna) 17.2 mg (2 x 8.6 mg) PO BEDTIME 60 caps 6RF constipation 30 days K59.04 - Chronic idiopathic constipation Discontinued shrppj-lnyhghkx-pdccegu 24,000-76,000 -120,000 unit Discontinued Reason: Doctor's Order 2 caps PO BID 30 days 120 caps 3RF K58.9 - Irritable bowel syndrome without diarrhea Laboratory Tests 10/22/21 01/25/25 01/29/25 09:45 07:15 09:22 Estimated GFR > 60 Total Bilirubin 0.4 AST 51 H ALT 73 H Alkaline Phosphatase 58 TSH 0.71 ROBER Screen NEGATIVE Hepatitis A IgM Ab Nonreactive Hep Bs Antigen Negative Hep Bs Antibody NONREACTIVE Hepatitis C Ab (EIA) Nonreactive TODAY'S VISIT She will be having rt knee surgery for an encapsulated kneecap. After surgery she will be non weight bearing for 7 weeks!! But it is needed as she has been falling and even gave herself a back eye with one fall. She had a bad bout of CIC after her vacation, she was taking her senna and colace but we did not eat right! It took her a month to get back to normal, and her hemorrhoids were bad!! She added prune juice daily and continues with this. The hemorrhoidal pain has resolved. She developed generalized itching and malaise and padmini for labs, she discovered that she had forgot to take her Welbutrin for 2 weeks !! General labs showed transaminitis that is new, her PCP did Hep serologies that were negative, I will add autoimmune labs and HIV to be thorough. She has US ordered by PCP. She does not drink alcohol but it met she has gained a significant amount of weight recently. To date she is not diabetic. She was educated about the likelihood of fatty liver and the importance of weight c ontrol for this metabolic induced potential liver injury. ROV 6 mos. [facility] Medical History (Updated 02/06/25 @ 13:27 by NELY Rob) History of cigarette smoking Encounter for annual wellness visit (AWV) in Medicare patient Abdominal pain Rash Contact dermatitis Encounter for medication monitoring Upper respiratory tract infection Impacted cerumen, bilateral Fatigue Dietary counseling Screening for cervical cancer Physical exam Tubular adenoma of colon Diverticular disease Acute diverticulitis Macular degeneration Seborrheic keratosis Dyslipidemia Depression Asthma COPD (chronic obstructive pulmonary disease) HTN (hypertension) Hypothyroid Fibromyalgia Lumbar spondylosis Surgical History History of colonoscopy Hx laparoscopic cholecystectomy History of surgery H/O breast biopsy History of hysterectomy History of knee replacement procedure of right knee History of knee replacement procedure of left knee Family History Father Unknown family medical history Mother Unknown family medical history Social History Household Members: Spouse Housing: House Do you presently have visiting nurse or other home services: No Alcohol intake: never Patient Tobacco Use Status: Never used Tobacco e-Cigarette/Vaping Use: Never Used Second Hand Smoke Exposure: No Advance Directives Date on File: 01/08/22 service: No Current occupational status: disabled Cognitive needs: No Hearing needs: No Vision needs: No Review of Systems Const Denies fatigue, Denies fever(s), Reports frequent falls, Denies night sweats, Denies poor appetite, Reports weight gain and Denies weight loss Eyes Details: glasses Reports requires corrective lenses ENT Reports Normal hearing present, Denies dental pain, Denies dysphagia, Denies hearing loss, Denies mouth pain, Denies odynophagia, Denies throat swelling, Denies tongue swelling and Reports other (Dentition adequate) Card Reports no additional complaints Resp Reports no additional complaints GI Details: Denies abdominal pain, Denies melena, Denies bloating, Reports hematochezia, Reports constipation, Denies GI cramping, Denies dysphagia, Denies excessive flatus, Denies early satiety, Denies heartburn, Denies diarrhea, Denies nausea, Denies odynophagia, Denies vomiting and Denies hematemesis Musc Reports abnormal gait, Reports arthralgias and Reports joint swelling Skin/Breast Denies pruritus, Denies lesions, Denies rash and Denies jaundice Neuro Reports Normal hearing present, Denies Abnormal speech present, Reports abnormal gait and Reports frequent falls Endo Denies fatigue Aller/Immun Denies throat swelling and Denies tongue swelling Physical Exam Vital Signs: Last Vital Signs Pulse 79 02/06/25 09:55 BP 172/87 H 02/06/25 09:55 Pulse Ox 95 02/06/25 09:55 Oxygen Delivery Method Room Air 02/06/25 09:55 BMI result Body Mass Index 34.0 Const General: cooperative, no acute distress, well developed and well groomed Nutritional Appearance: well nourished and obese Orientation/consciousness: oriented to person, oriented to place and oriented to time Limitations: No language barrier HEENT Head: Yes normocephalic and Yes atraumatic Eyes General: appearance normal, both eyes and all related structures Pupils: Equal, round and reactive pupils present Neck Neck: Yes normal visual inspection and Yes no lymphadenopathy Thyroid: Thyroid normal Resp Effort & Inspection: normal respiratory effort and able to speak in complete sentences Auscultation: clear to auscultation bilaterally Cardio Rate: regular rate Rhythm: regular rhythm Heart sounds: Normal, physiologic split S2 sound present Peripheral pulses: radial pulses present and posterior tibial pulses present GI Inspection: No distended, Yes Abdominal panniculus present and Yes obesity Palpation (GI): Soft to palpation, nontender, no guarding, not rigid and No hepatosplenomegaly present Percussion: Yes normal to percussion Auscultation: normal bowel sounds Rectal Exam - Female: deferred Skin General skin exam: no rashes or lesions noted, turgor normal, skin not dry, no j aundice, No spider nevi and no striae Rashes: no rashes Nails: normal Neuro General: oriented to person, oriented to place and oriented to time Cranial nerves: Yes Equal, round and reactive pupils present and Yes Normal hearing present Speech: No Abnormal speech present Extrem General: Yes normal to inspection, No clubbing, No cyanosis and No edema Psych Appearance: grossly normal and well kempt Mental Status: mental status grossly normal Speech and movement: Normal speech and movement present Affect: normal affect Attitude: cooperative Thought process: Normal thought process present and not confabulating Thought content: Normal thought content present Insight: Fair insight present (Psych) Judgement: Fair judgement present (Psych) Assessment & Plan Assessment & Plan (1) Irritable bowel syndrome with both constipation and diarrhea: Code(s): K58.2 - Mixed irritable bowel syndrome Category: Medical (2) Chronic idiopathic constipation: Code(s): K59.04 - Chronic idiopathic constipation Category: Medical (3) Transaminitis: Comment: Baseline Laboratory Tests 10/22/2203/ 09:4507:1509:22 Estimated GFR > 60 Total Bilirubin 0.4 AST 51 H ALT 73 H Alkaline Phosphatase 58 TSH 0.71 ROBER Screen NEGATIVE Hepatitis A IgM Ab Nonreactive Hep Bs Antigen Negative Hep Bs Antibody NONREACTIVE Hepatitis C Ab (EIA) Nonreactive Current labs ULTRASOUND OF THE ABDOMEN Code(s): R74.01 - Elevation of levels of liver transaminase levels Category: Medical Plan She will be having rt knee surgery for an encapsulated kneecap. After surgery she will be non weight bearing for 7 weeks!! But it is needed as she has been falling and even gave herself a back eye with one fall. She had a bad bout of CIC after her vacation, she was taking her senna and colace but we did not eat right! It took her a month to get back to normal, and her hemorrhoids were bad!! She added prune juice daily and continues with this. The hemorrhoidal pain has resolved. She developed generalized itching and malaise and padmini for labs, she discovered that she had forgot to take her Welbutrin for 2 weeks !! General labs showed transaminitis that is new, her PCP did Hep serologies that were negative, I will add autoimmune labs and HIV to be thorough. She has US ordered by PCP. She does not drink alcohol but it met she has gained a significant amount of weight recently. To date she is not diabetic. She was educated about the likelihood of fatty liver and the importance of weight control for this metabolic induced potential liver injury. ROV 6 mos. Orders: Orders Smooth Muscle Antibody Today R74.01 - Elevation of levels of liver transaminase levels Ferritin Today R74.01 - Elevation of levels of liver transaminase levels Alpha Fetoprotein Today R74.01 - Elevation of levels of liver transaminase levels Mitochondrial Antibody Today R74.01 - Elevation of levels of liver transaminase levels US abdomen complete 01/26/25 R74.8 - Abnormal levels of other serum enzymes HIV Ab/Ag Today R74.01 - Elevation of levels of liver transaminase levels Medications: Refilled docusate sodium (Colace) 100 mg PO BID 60 caps 6RF sennosides (senna) 17.2 mg (2 x 8.6 mg) PO BEDTIME 60 caps 6RF constipation 30 days K59.04 - Chronic idiopathic constipation Coding Level of Care Code Est Pt Level 4 (19062) Diagnoses Irritable bowel syndrome with both constipation and diarrhea K58.2 Chronic idiopathic constipation K59.04 Transaminitis R74.01 Time Spent (min) 37
--- OUTSIDE RECORDS SUMMARY | 2025-02-06 10:53 | XMS_ITS | Patient Health Record ---
Author Organization [facility] [place] Address [address] [facility] [place] [address] Care Team Providers Care Fireproof Door Assembler Name Role Phone Marcos Samuels Primary Care Provider Susanne Austin Unavailable [phone] John Levine Unavailable [phone] Allergies Allergen (clinical drug ingredient) Drug/Non Drug [...] Status Risk Notes Problem Acquired hallux valgus (43705219) Hallux valgus (acquired), left foot (M20.12) Active confirmed Problem Localized, primary osteoarthritis of the ankle and/or foot (248204726) Primary osteoarthrit is, right ankle and foot (M19.071) Active confirmed Problem Localized, primary osteoarthritis of the ankle and/or foot (285688827) Primary osteoarthrit is, left ankle and foot (M19.072) Active confirmed Problem Acquired hammer toe of right foot (9517168912598662) Other hammer toe(s) (acquired), right foot (M20.41) Active confirmed Problem Acquired hammer toe of left foot (0880126611037361) Other hammer toe(s) (acquired), left foot (M20.42) [...] Ordered Date Performed Result Body Sit e 19915-NKH 07/31/2024 N/A 81947-OJSVLHB SKIN/TISSUE 08/16/2024 N/A 57052-RKQ 09/04/2024 N/A 96032-OMAYYLP SKIN/TISSUE 09/20/2024 N/A Encounters Encounter Location Date Provider Diagnosis [address] [address] 06/25/2024 John Levine Ingrowing nail L60.0 ; Primary osteoarthritis, left ankle and foot M19.072 ; Primary osteoarthritis, right ankle and foot M19.071 ; Metatarsalgia, left foot M77.42 ; Metatarsalgia, right foot M77.41 ; Hallux valgus (acquired), left foot M20.12 ; Other hammer toe(s) (acquired), left foot M20.42 ; Other hammer toe(s) (acquired), right foot M20.41 and Tinea unguium B35.[address] [address] 07/31/2024 Susanne Garrison Ingrown nail L60.[address] [address] 08/16/2024 Susanne Garrison Xerosis of skin L85.3 and Skin ulcer of toe of left foot with fat layer exposed L97.522 [facility] [address] [address] 09/04/2024 Susanne Garrison Ingrown nail L60.[address] [address] 09/20/2024 Susanne Garrison Skin ulcer of toe of right foot with fat layer exposed L97.[address] [facility] [address] [address] 10/25/2024 Susanne Garrison Ingrown toenail L60.[address] [facility] [address] 08/01/2024 Susanne Garrison [facility] [address] 09/21/2024 Susanne Garrison Assessments Encounter Date Diagnosis [...] X ray : Foot, right 3V 07/09/2019 75097-Wwvu Destruction, 1-12/16/2014 70276-Ndhd Destruction, -01/16/2015 87417-DKB 07/31/2024 92069-NJJ 09/04/2024 88697-TOKLHSM SKIN/TISSUE 09/20/2024 99907-TLMSEJY SKIN/TISSUE 08/16/2024 Insurance Providers Payer Name Payer Address Payer Phone Subscriber Number Group Number Insured Name Patient Relationship to Insured Coverage Start Date Coverage End Date Medicare National Govt Sv[employer] Inc [address] [place] [address] [id number] Radha Jean Self - patient is the insured [employer] [address] [place] [address] [id number] Radha Jean Self - patient is the [...] 11/1983 left knee replacement 2012 hip surgery-tendon inqkwv-biuqtkgzto-raz an tibial band repair colonoscopy 12/2021
--- OUTSIDE RECORDS SUMMARY | 2025-02-06 10:53 | XMS_ITS ---
Author Organization [facility] Address [address] [place] [address] Care Team Providers Care Blood Bank Laboratory Professional Name Role Phone Marcos Samuels Primary Care Provider Unav Susanne Wolfe [phone] Medications Medication SIG (Take, Route, Fr equency, Duration) Notes Start Date End Date Status Amoxicillin 875 MG 1 tablet Orally Twic e a day for 5 day(s) 09/21/2024 Active Encounters Encounter Location Date Provider Diagnosis [facility] [address] [place] [address] 09/21/2024 Susanne Garrison Plan Of Treatment Medication Medication Name Sig Start Date Stop Date Notes Amoxicillin 875 MG 1 tablet Orally Twic e a day for 5 day(s) 09/21/2024 Progress Notes * Radha JEAN LDOB: (64 yo F)Acc No.[id number]:09/21/2024 Patient:?Radha JEAN :1960???Age:64 Y???Sex:Female Address:[address] [place] [address] * Refills? Start Amoxicillin Tablet, 875 MG, Orally, 10, 1 tablet, Twice a day, 5 day(s) * true * Date:? Generated for Candisi estevan/Faraheelg/eTransmitting on:?02/06/2025 10:52 AM EDT
--- OUTSIDE RECORDS SUMMARY | 2025-02-06 10:53 | XMS_ITS ---
Author Organization [facility] Address [address] [place] [address] Care Team Providers Care Rack Pusher Name Role Phone Marcos Samuels Primary Care Provider Susanne Austin Unavailable [phone] Allergies Allergen (clinical drug ingredient) Drug/Non Drug [...] 025 Encounters Encounter Location Date Provider Diagnosis [facility] [address] [address] 10/25/2024 Susanne Garrison Ingrown toenail L60.0 Assessments Encounter Date Diagnosis (ICD Code) Assessment Notes Treatment Notes Treatment Clinical Notes Section Notes 10/25/2024 Ingrown toenail (ICD-10 - L60.0) Plan Of Treatment Next Appt Details Follow Up: prn, Reason: Progress Notes * Radha JEAN LDOB: (64 yo F)Acc No.[id number]:10/25/2024 Progress Note Patient:?Radha JEAN Provider:?Susanne Garrison DPM :1960???Age:64 Y???Sex:Female D ate:10/25/2024 Address:[address] Pcp:JOSELO Cruz Subjective: * Chief Complaints: * [...] 11/1998hysterectomy 07/2008cholecystectomy 11/1983left knee replacement 2013hip surgery-tendon ivuhps-olrutywbid-ovcip tibial band repair colonoscopy 12/2021 * Hospitalization/Major [...] yes, walking. ?Marital status: . 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 ???Drug/Alcohol:?AUDIT-C (Standard)?Did you have a drink containing [...] DPM Date:?0 10/25/2024 Generated for Virgilio barreto/Alin/eTransmitting on:?02/06/2025 10:53 AM EDT History and Physical Notes * [...]
--- OUTSIDE RECORDS SUMMARY | 2025-02-06 10:53 | XMS_ITS ---
Author Organization [facility] Address [address] [place] [address] Care Team Providers Care Family Service Counselor Name Role Phone Aj JOSUE, Marcos Primary Care Provider Unav ailable Susanne Garrison Unavailable [phone] REASON FOR VISIT X CHG Encounters Encounter Location Date Provider Diagnosis [facility] [address] [place] [address] 10/25/2024 Susanne Garrison Plan Of Treatment No Information Progress Notes * Radha JEAN LDOB: (65 yo F)Acc No.[id number]:10/25/2024 Progress Note Patient:?Radha JEAN Provider:?Susanne Garrison DPM :1960???Age:64 Y???Sex:Female D ate:10/25/2024 Address: [address] [facility] Pcp:JOSELO Cruz Subjective: * Chief Complaints: * [...] Garrison DPM Date:?0 10/25/2024 Generated for Candisi estevan/Faraheelg/eTransmitting on:?02/06/2025 10:53 AM EDT
== END 2025-02-06 10:36 | disposition home or self-care (01) ==
LOC: HO.HGI 09:53
PROVIDERS: PCP Nurse Practitioner Family; Visit Provider Nurse Practitioner
DX: K58.2 Mixed irritable bowel syndrome (principal); K59.04 Chronic idiopathic constipation; R74.01 Elevation of levels of liver transaminase levels
CPT/HCPCS: 99214

== ENCOUNTER → 2025-02-06 09:52 | Outpatient (BNVA) | payer MEDICARE, OTHER, SELFPAY | PROVIDERS: PCP Nurse Practitioner Family; Visit Provider Nurse Practitioner | DX: K58.2 Mixed irritable bowel syndrome (principal); K59.04 Chronic idiopathic constipation; R74.01 Elevation of levels of liver transaminase levels | CPT/HCPCS: 99212 ==

== ENCOUNTER 2025-02-08 08:03 | Outpatient (REF) | payer MEDICARE, OTHER, SELFPAY ==
[2025-02-08 09:37] LABS: Ferritin 64 ng/mL (10-250)
[2025-02-08 09:45] LABS: HIV AB/AG Nonreactive (Nonreactive); HIV Num 1 0.07 S/CO (0.00-0.99)
[2025-02-12 13:18] LABS: Alpha Fetoprotein 5.1 ng/mL; Mitochondrial Antibodies NEGATIVE (NEGATIVE)
[2025-02-12 18:58] LABS: Smooth Muscle Antibody <20 U (<20)
== END 2025-02-08 08:04 | disposition home or self-care (01) ==
LOC: HO.LAB 08:03
PROVIDERS: PCP Nurse Practitioner Family; Visit Provider Nurse Practitioner
DX: R74.01 Elevation of levels of liver transaminase levels (principal)
CPT/HCPCS: 36415; 82105; 82728; 86015; 86381; 87389

== ENCOUNTER 2025-02-12 15:51 | Outpatient (AMB) | payer MEDICARE, OTHER, SELFPAY ==
[2025-02-12 16:00] VITALS: BP 132/88; PULSE 79; O2SAT 97; BMI 34.0
--- NOTE | 2025-02-12 16:00 | HO.NEPHOV_ITS ---
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: No Accompanied by: Self / Same As Patient Allergies lactose Allergy (Unknown, Verified 02/12/25 16:04) lactose intolerant GI upset sulfamethoxazole Allergy (Unknown, Verified 02/12/25 16:04) vomiting tizanidine Allergy (Verified 02/12/25 16:04) Vomiting doxycycline Adverse Reaction (Severe, Verified 02/12/25 16:04) Diarrhea Medication List - Last Reconciled 02/12/25 by Willem Noriega MD albuterol sulfate 90 mcg/actuation 2 puffs inhalation Q4-6H PRN albuterol sulfate 2.5 mg (3 mL) inhalation QID PRN bupropion HCl XL 300 mg PO QAM calcium carbonate (Calcium 600) 600 mg PO BID 90 days cholecalciferol (vitamin D3) 25 mcg PO DAILY 90 days coenzyme Q10 100 mg PO DAILY cyclobenzaprine 10 mg PO DAILY PRN docusate sodium (Colace) 100 mg PO BID fluticasone propion-salmeterol 500-50 mcg/dose (Wixela Inhub) 1 ea PO BID PRN gabapentin 1,200 mg (2 x 600 mg) PO DAILY 60 days levothyroxine 125 mcg PO QAM 90 days loratadine 10 mg PO DAILY losartan 25 mg PO DAILY lutein 40 mg PO DAILY magnesium 250 mg PO DAILY metoprolol succinate ER 12.5 mg PO DAILY montelukast 10 mg PO DAILY 90 days multivitamin 1 tab PO DAILY psyllium husk (Metamucil) 2 tsp PO DAILY PRN rosuvastatin 20 mg PO BEDTIME 90 days sennosides (senna) 17.2 mg (2 x 8.6 mg) PO BEDTIME 30 days sumatriptan succinate (Imitrex) 25 mg PO Q2-4H PRN 10 days tiotropium bromide (Spiriva with HandiHaler) 1 cap inhalation DAILY tramadol 50 mg PO DAILY PRN vit C-E-zinc fi-qntw-msg-zeax 250 mg-200 unit -12.5 mg-1 mg (ICaps AREDS2) 1 cap PO DAILY HPI Comments Details: Radha is a pleasant 65-year-old woman referred for with newly identified proteinuria from a recent urinalysis. Proteinuria was not found in previous urinalyses, and the patient reports prior episodes of microscopic hematuria that have resolved. She has undergoned extensive urological work up including cystoscopy , which was negative. The patient has a history of stable, mildly elevated liver enzymes due to rosuvastatin use, and ano h/o alcohol and tobacco use. Her prior kidney function tests have been normal. There is no indication of acute kidney dysfunction at this time. The patient's history includes osteoarthritis with a previous knee replacement and scheduled revision, spondylolisthesis, scoliosis and she takes Diclofenac 50 mg daily for more than 5 years. She also has a history of a single urinary tract infection, several years ago, not related to current symptoms. COUNT INCLUDES [facility] Medical History (Updated 02/06/25 @ 13:27 by NELY Rob) History of cigarette smoking Encounter for annual wellness visit (AWV) in Medicare patient Abdominal pain Rash Contact dermatitis Encounter for medication monitoring Upper respiratory tract infection Impacted cerumen, bilateral Fatigue Dietary counseling Screening for cervical cancer Physical exam Tubular adenoma of colon Diverticular disease Acute diverticulitis Macular degeneration Seborrheic keratosis Dyslipidemia Depression Asthma COPD (chronic obstructive pulmonary disease) HTN (hypertension) Hypothyroid Fibromyalgia Lumbar spondylosis Surgical History History of colonoscopy Hx laparoscopic cholecystectomy History of surgery H/O breast biopsy History of hysterectomy History of knee replacement procedure of right knee History of knee replacement procedure of left knee Family History Father Unknown family medical history Mother Unknown family medical history Social History Household Members: Spouse Housing: House Do you presently have visiting nurse or other home services: No Alcohol intake: never Patient Tobacco Use Status: Never used Tobacco e-Cigarette/Vaping Use: Never Used Second Hand Smoke Exposure: No Advance Directives Date on File: 01/08/22 service: No Current occupational status: disabled Cognitive needs: No Hearing needs: No Vision needs: No Review of Systems Const Denies fever(s) and Denies weight loss Card Denies chest pain Resp Denies cough and Denies hemoptysis GI Denies abdominal pain, Denies diarrhea and Denies nausea Musc Denies back pain Neuro Denies focal weakness Physical Exam Vital Signs: Last Vital Signs Pulse 79 02/12/25 16:00 BP 132/88 02/12/25 16:00 Pulse Ox 97 02/12/25 16:00 Oxygen Delivery Method Room Air 02/12/25 16:00 BMI result Body Mass Index 34.0 Const General: comfortable; No acute distress Orientation/consciousness: patient oriented x3 Eyes General: appearance normal, both eyes and all related structures Visual Bermudez: normal visual bermudez by confrontation Neck Neck: Yes supple and Yes no JVD Resp Effort & Inspection: normal respiratory effort and respiratory effort not decreased Cardio Palpation: no palpable S3 and no palpable S4 Heart sounds: no rubs GI Inspection: Yes normal to inspection Palpation (GI): Soft to palpation Percussion: Yes normal to percussion Auscultation: normal bowel sounds General: Yes no CVA tenderness Back/Spine/Pelvis Back: no CVA tenderness Skin General skin exam: no petechiae and no purpura Neuro General: patient oriented x3 and no focal motor deficits Extrem General: No clubbing and No edema Results Reviewed Nephrology Results: Hgb 14.0 g/dl (12.0-16.0) 01/25/25 WBC 7.3 X10*3/uL (4.8-10.8) 01/25/25 Plt Count 312 X10*3/uL (160-400) 01/25/25 Sodium 143 mmol/L (135-145) 01/25/25 Potassium 3.7 mmol/L (3.3-5.1) 01/25/25 Chloride 109 mmol/L (96-108) H 01/25/25 Carbon Dioxide 30 mmol/L (22-29) H 01/25/25 BUN 11 mg/dL (9-16) 01/25/25 Creatinine 0.75 mg/dL (0.5-1.4) 01/25/25 Calcium 9.4 mg/dL (8.4-10.2) 01/25/25 Urine Protein 30 (1+) mg/dL (Neg-Trace) H 01/30/25 Assessment & Plan Assessment & Plan (1) Proteinuria: Code(s): R80.9 - Proteinuria, unspecified Category: Medical Plan The UA shows a SG of > 1.030 suggesting a concentrated urine. Dip stick can be falsely positive for protien in a concentrated urine. Shall repeat UA after adequate hydration. Work up initiated including Protein : creatinine ratio and SPEP with basic serologies especially with a h/o micro hematuria. Renal function is normal I am concerned with the daily intake of Diclofenac. She will benefit from limiting the intake of NSAIDS Vit D level is elevated at 99 and she is on 2000 IU a day. Serum calcium is normal Would suggest to lower Vit D to 1000 U a day Further work up will be based on the outcome of the above investigations. Orders: Orders UA and rflx microscopic Today Willem Noriega MD R80.9 - Proteinuria, unspecified Total Protein Urine Random Today Willem Noriega MD R80.9 - Proteinuria, unspecified Creatinine Urine Today Willem Noriega MD R80.9 - Proteinuria, unspecified Myeloperoxidase Antibody Today Willem Noriega MD R80.9 - Proteinuria, unspecified Anti Glomerular Basement Memb Today Willem Noriega MD R80.9 - Proteinuria, unspecified Proteinase 3 PR3 Antibodies Today Willem Noriega MD R80.9 - Proteinuria, unspecified Phosphorus Today Willem Noriega MD R80.9 - Proteinuria, unspecified Uric Acid Today Willem Noriega MD R80.9 - Proteinuria, unspecified Protein Electrophoresis, Serum Today Willem Noriega MD R80.9 - Prot einuria, unspecified Neutrophil Cytoplasma Ab Today Willem Noriega MD R80.9 - Proteinuria, unspecified Medications: Changed From metoprolol succinate ER 25 mg PO DAILY 90 days 90 tabs 1RF To metoprolol succinate ER 12.5 mg PO DAILY Marcos Rocha, LIVING SPECIALIST- Coding Level of Care Code New Pt Level 4 (04904) Diagnoses Proteinuria R80.9
--- OUTSIDE RECORDS SUMMARY | 2025-02-12 16:31 | XMS_ITS ---
Author Organization [facility] Address [address] [place] [address] Care Team Providers Care Threshing Operator Name Role Phone Marcos Samuels Primary Care Provider Unav Susanne Wolfe [phone] Medications Medication SIG (Take, Route, Fr equency, Duration) Notes Start Date End Date Status Amoxicillin 875 MG 1 tablet Orally Twic e a day for 5 day(s) 09/21/2024 Active Encounters Encounter Location Date Provider Diagnosis [facility] [address] [place] [address] 09/21/2024 Susanne Garrison Plan Of Treatment Medication Medication Name Sig Start Date Stop Date Notes Amoxicillin 875 MG 1 tablet Orally Twic e a day for 5 day(s) 09/21/2024 Progress Notes * Radha JEAN LDOB: (64 yo F)Acc No.[id number]:09/21/2024 Patient:?Radha JEAN :1960???Age:64 Y???Sex:Female Address:[address] [place] [address] * Refills? Start Amoxicillin Tablet, 875 MG, Orally, 10, 1 tablet, Twice a day, 5 day(s) * true * Date:? Generated for Candisi ng/Faxing/eTransmitting on:?02/12/2025 04:30 PM EDT
--- OUTSIDE RECORDS SUMMARY | 2025-02-12 16:31 | XMS_ITS | Patient Health Record ---
Author Organization [facility] [place] Address [address] [place] [address] Care Team Providers Care Hearing Healthcare Practitioner Name Role Phone Marcos Samuels Primary Care Provider Susanne Austin Unavailable [phone] John Levine Unavailable [phone] Allergies Allergen (clinical drug ingredient) Drug/Non Drug [...] Status Risk Notes Problem Acquired hallux valgus (06203303) Hallux valgus (acquired), left foot (M20.12) Active confirmed Problem Localized, primary osteoarthritis of the ankle and/or foot (553434457) Primary osteoarthrit is, right ankle and foot (M19.071) Active confirmed Problem Localized, primary osteoarthritis of the ankle and/or foot (282913535) Primary osteoarthrit is, left ankle and foot (M19.072) Active confirmed Problem Acquired hammer toe of right foot (2194429901081999) Other hammer toe(s) (acquired), right foot (M20.41) Active confirmed Problem Acquired hammer toe of left foot (5381075353522828) Other hammer toe(s) (acquired), left foot (M20.42) [...] Ordered Date Performed Result Body Sit e 82983-OOE 07/31/2024 N/A 22541-MTUTWGF SKIN/TISSUE 08/16/2024 N/A 42116-IBZ 09/04/2024 N/A 23797-WCONIVQ SKIN/TISSUE 09/20/2024 N/A Encounters Encounter Location Date Provider Diagnosis [address] [address] 06/25/2024 John Levine Ingrowing nail L60.0 ; Primary osteoarthritis, left ankle and foot M19.072 ; Primary osteoarthritis, right ankle and foot M19.071 ; Metatarsalgia, left foot M77.42 ; Metatarsalgia, right foot M77.41 ; Hallux valgus (acquired), left foot M20.12 ; Other hammer toe(s) (acquired), left foot M20.42 ; Other hammer toe(s) (acquired), right foot M20.41 and Tinea unguium B35.[address] [address] 07/31/2024 Susanne Garrison Ingrown nail L60.[address] [address] 08/16/2024 Susanne Garrison Xerosis of skin L85.3 and Skin ulcer of toe of left foot with fat layer exposed L97.522 [facility] [address] [address] 09/04/2024 Susanne Garrison Ingrown nail L60.[address] [address] 09/20/2024 Susanne Garrison Skin ulcer of toe of right foot with fat layer exposed L97.[address] [facility] [address] [address] 10/25/2024 Susanne Garrison Ingrown toenail L60.[address] [facility] [address] 08/01/2024 [facility] [address] 09/21/2024 Susanne Garrison Assessments Encounter Date Diagnosis [...] X ray : Foot, right 3V 07/09/2019 19697-Lmlv Destruction, 1-12/16/2014 69890-Pgtl Destruction, -01/16/2015 75169-RFN 07/31/2024 75132-ZGV 09/04/2024 66383-FFEEJWT SKIN/TISSUE 09/20/2024 05342-KNFGIAH SKIN/TISSUE 08/16/2024 Insurance Providers Payer Name Payer Address Payer Phone Subscriber Number Group Number Insured Name Patient Relationship to Insured Coverage Start Date Coverage End Date Medicare National Govt Svcs Inc [address] [facility] [address] [id number] Radha Jean Self - patient is the insured [employer] [address] [place] [address] [id number] Radha Jean Self - patient is the [...] 11/1983 left knee replacement 2012 hip surgery-tendon wwcatp-dpwffxdvtf-cfg an tibial band repair colonoscopy 12/2021
--- OUTSIDE RECORDS SUMMARY | 2025-02-12 16:31 | XMS_ITS ---
Author Organization [facility] Address [address] [place] [address] Care Team Providers Care Competitive Shopper Name Role Phone Marcos Samuels Primary Care Provider Susanne Austin Unavailable [phone] Allergies Allergen (clinical drug ingredient) Drug/Non Drug [...] 025 Encounters Encounter Location Date Provider Diagnosis [facility] [address] [address] 10/25/2024 Susanne Garrison Ingrown toenail L60.0 Assessments Encounter Date Diagnosis (ICD Code) Assessment Notes Treatment Notes Treatment Clinical Notes Section Notes 10/25/2024 Ingrown toenail (ICD-10 - L60.0) Plan Of Treatment Next Appt Details Follow Up: prn, Reason: Progress Notes * Radha JEAN LDOB: (64 yo F)Acc No.[id number]:10/25/2024 Progress Note Patient:?Radha JEAN Provider:?Susanne Garrison DPM :1960???Age:64 Y???Sex:Female D ate:10/25/2024 Address:[address] [place] Pcp:JOSELO Cruz Subjective: * Chief Complaints: * [...] 11/1998hysterectomy 07/2008cholecystectomy 11/1983left knee replacement 2013hip surgery-tendon qgehld-snehhipsxq-ydvoh tibial band repair colonoscopy 12/2021 * Hospitalization/Major [...] yes, walking. ?Marital status: . 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 ???Drug/Alcohol:?AUDIT-C (Standard)?Did you have a drink containing [...] DPM Date:?0 10/25/2024 Generated for Virgilio barreto/Alin/eTransmitting on:?02/12/2025 04:30 PM EDT History and Physical Notes * [...]
--- OUTSIDE RECORDS SUMMARY | 2025-02-12 16:31 | XMS_ITS ---
Author Organization [facility] Address [address] [place] [address] Care Team Providers Care Machine Guide Base Winder Name Role Phone Aj JOSUE, Marcos Primary Care Provider Unav ailable Susanne Garrison Unavailable [phone] REASON FOR VISIT X CHG Encounters Encounter Location Date Provider Diagnosis [facility] [address] [place] [address] 10/25/2024 Susanne Garrison Plan Of Treatment No Information Progress Notes * Radha JEAN LDOB: (65 yo F)Acc No.[id number]:10/25/2024 Progress Note Patient:?Radha JEAN Provider:?Susanne Garrison DPM :1960???Age:64 Y???Sex:Female D ate:10/25/2024 Address: [address] [facility] Pcp:JOSELO Cruz Subjective: * Chief Complaints: * [...] DPM Date:?0 10/25/2024 Generated for Candisi ng/Faraheelg/eTransmitting on:?02/12/2025 04:31 PM EDT
== END 2025-02-12 16:23 | disposition home or self-care (01) ==
LOC: HO.HKA 15:52
PROVIDERS: PCP Nurse Practitioner Family; Referring Provider Nurse Practitioner Family; Visit Provider Internal Medicine Hypertension Specialist
DX: R80.9 Proteinuria, unspecified (principal)
CPT/HCPCS: 99204

== ENCOUNTER → 2025-02-12 15:51 | Outpatient (BNVA) | payer MEDICARE, OTHER, SELFPAY | PROVIDERS: PCP Nurse Practitioner Family; Referring Provider Nurse Practitioner Family; Visit Provider Internal Medicine Hypertension Specialist | DX: R80.9 Proteinuria, unspecified (principal) | CPT/HCPCS: 99202 ==

== ENCOUNTER → 2025-02-15 07:59 | Outpatient (BNVA) | payer MEDICARE, OTHER, SELFPAY | PROVIDERS: PCP Nurse Practitioner Family; Visit Provider Physician Assistant Surgical ==

== ENCOUNTER 2025-02-19 07:32 | Outpatient (AMB) | payer MEDICARE, OTHER, SELFPAY ==
--- OUTSIDE RECORDS SUMMARY | 2025-02-19 07:34 | XMS_ITS ---
Author Organization [facility] Address [address] [place] [address] Care Team Providers Care Pier Master Assistant Name Role Phone Marcos Samuels Primary Care Provider Susanne Austin Unavailable [phone] Allergies Allergen (clinical drug ingredient) Drug/Non Drug [...] 025 Encounters Encounter Location Date Provider Diagnosis [facility] [address] [address] 10/25/2024 Susanne Garrison Ingrown toenail L60.0 Assessments Encounter Date Diagnosis (ICD Code) Assessment Notes Treatment Notes Treatment Clinical Notes Section Notes 10/25/2024 Ingrown toenail (ICD-10 - L60.0) Plan Of Treatment Next Appt Details Follow Up: prn, Reason: Progress Notes * Radha JEAN LDOB: (64 yo F)Acc No.[id number]:10/25/2024 Progress Note Patient:?Radha JEAN Provider:?Susanne Garrison DPM :1960???Age:64 Y???Sex:Female D ate:10/25/2024 Address:[address] Pcp:JOSELO Cruz Subjective: * Chief Complaints: * [...] 11/1998hysterectomy 07/2008cholecystectomy 11/1983left knee replacement 2013hip surgery-tendon liqxnb-ndgogyhgin-xcklk tibial band repair colonoscopy 12/2021 * Hospitalization/Major [...] yes, walking. ?Marital status: . 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 ???Drug/Alcohol:?AUDIT-C (Standard)?Did you have a drink containing [...] DPM Date:?0 10/25/2024 Generated for Virgilio barreto/Alin/eTransmitting on:?02/19/2025 07:33 AM EDT History and Physical Notes * [...]
--- OUTSIDE RECORDS SUMMARY | 2025-02-19 07:34 | XMS_ITS ---
Author Organization [facility] Address [address] [place] [address] Care Team Providers Care Chipper Name Role Phone Aj JOSUE, Marcos Primary Care Provider Unav ailable Susanne Garrison Unavailable [phone] REASON FOR VISIT X CHG Encounters Encounter Location Date Provider Diagnosis [facility] [address] [place] [address] 10/25/2024 Susanne Garrison Plan Of Treatment No Information Progress Notes * Radha JEAN LDOB: (65 yo F)Acc No.[id number]:10/25/2024 Progress Note Patient:?Radha JEAN Provider:?Susanne Garrison DPM :1960???Age:64 Y???Sex:Female D ate:10/25/2024 Address: [address] [facility] Pcp:JOSELO Cruz Subjective: * Chief Complaints: * [...] DPM Date:?0 10/25/2024 Generated for Candisi ng/Faraheelg/eTransmitting on:?02/19/2025 07:34 AM EDT
--- OUTSIDE RECORDS SUMMARY | 2025-02-19 07:34 | XMS_ITS | Patient Health Record ---
Author Organization [facility] [place] Address [address] [place] [address] Care Team Providers Care Bootmaker Hand Name Role Phone Marcos Samuels Primary Care Provider Susanne Austin Unavailable [phone] John Levine Unavailable [phone] Allergies Allergen (clinical drug ingredient) Drug/Non Drug [...] Status Risk Notes Problem Acquired hallux valgus (23078720) Hallux valgus (acquired), left foot (M20.12) Active confirmed Problem Localized, primary osteoarthritis of the ankle and/or foot (643047296) Primary osteoarthrit is, right ankle and foot (M19.071) Active confirmed Problem Localized, primary osteoarthritis of the ankle and/or foot (269213412) Primary osteoarthrit is, left ankle and foot (M19.072) Active confirmed Problem Acquired hammer toe of right foot (8175961714618111) Other hammer toe(s) (acquired), right foot (M20.41) Active confirmed Problem Acquired hammer toe of left foot (3700892609187934) Other hammer toe(s) (acquired), left foot (M20.42) [...] Ordered Date Performed Result Body Sit e 80487-SBP 07/31/2024 N/A 11649-YWXABJA SKIN/TISSUE 08/16/2024 N/A 68997-LXP 09/04/2024 N/A 33034-CDAGNAL SKIN/TISSUE 09/20/2024 N/A Encounters Encounter Location Date Provider Diagnosis [address] [address] 06/25/2024 John Levine Ingrowing nail L60.0 ; Primary osteoarthritis, left ankle and foot M19.072 ; Primary osteoarthritis, right ankle and foot M19.071 ; Metatarsalgia, left foot M77.42 ; Metatarsalgia, right foot M77.41 ; Hallux valgus (acquired), left foot M20.12 ; Other hammer toe(s) (acquired), left foot M20.42 ; Other hammer toe(s) (acquired), right foot M20.41 and Tinea unguium B35.[address] [address] 07/31/2024 Susanne Garrison Ingrown nail L60.[address] [address] 08/16/2024 Susanne Garrison Xerosis of skin L85.3 and Skin ulcer of toe of left foot with fat layer exposed L97.522 [facility] [address] [address] 09/04/2024 Susanne Garrison Ingrown nail L60.[address] [address] 09/20/2024 Susanne Garrison Skin ulcer of toe of right foot with fat layer exposed L97.512 [facility] [address] [address] 10/25/2024 Susanne Garrison Ingrown toenail L60.[address] [facility] [address] 08/01/2024 [facility] [address] 09/21/2024 Susanne Garrison Assessments Encounter Date Diagnosis [...] X ray : Foot, right 3V 07/09/2019 99562-Mgqe Destruction, 1-12/16/2014 22816-Pubp Destruction, -01/16/2015 08940-CFQ 07/31/2024 72787-DAN 09/04/2024 84089-YFPCYCE SKIN/TISSUE 09/20/2024 16587-JRCOSCQ SKIN/TISSUE 08/16/2024 Insurance Providers Payer Name Payer Address Payer Phone Subscriber Number Group Number Insured Name Patient Relationship to Insured Coverage Start Date Coverage End Date Medicare National Govt Svcs Inc [address] [place] [address] [id number] Radha Jean Self - patient is the insured [employer] [address] [place] [address] [id number] Radha Jean Self - patient is the [...] 11/1983 left knee replacement 2012 hip surgery-tendon bprtij-hibqenmsqw-uww an tibial band repair colonoscopy 12/2021
--- NOTE | 2025-02-19 07:35 | A.OFFVIS_ITS ---
Vital Signs 02/19/25 07:39 Height 5 ft 3.5 in Weight 193 lb BMI 33.6 BP 134/100 H Blood Pressure Location Rt brachial Position Sitting Pulse 75 Pulse Source Pulse Oximeter Pulse Oximetry (%) 97 Oxygen Delivery Method Room Air Intake Visit Reasons: FMS Intake Note: Patient presents for FMS follow up. Allergies lactose Allergy (Unknown, Verified 02/19/25 07:38) lactose intolerant GI upset sulfamethoxazole Allergy (Unknown, Verified 02/19/25 07:38) vomiting tizanidine Allergy (Verified 02/19/25 07:38) Vomiting doxycycline Adverse Reaction (Severe, Verified 02/19/25 07:38) Diarrhea Medication List - Last Reconciled 02/19/25 by Danielle Jean MD albuterol sulfate 90 mcg/actuation 2 puffs inhalation Q4-6H PRN albuterol sulfate 2.5 mg (3 mL) inhalation QID PRN bupropion HCl XL 300 mg PO QAM calcium carbonate (Calcium 600) 600 mg PO BID 90 days cholecalciferol (vitamin D3) 25 mcg PO DAILY 90 days coenzyme Q10 100 mg PO DAILY cyclobenzaprine 10 mg PO DAILY PRN docusate sodium (Colace) 100 mg PO BID fluticasone propion-salmeterol 500-50 mcg/dose (Wixela Inhub) 1 ea PO BID PRN gabapentin 1,200 mg (2 x 600 mg) PO DAILY 60 days levothyroxine 125 mcg PO QAM 90 days loratadine 10 mg PO DAILY losartan 25 mg PO DAILY lutein 40 mg PO DAILY magnesium 250 mg PO DAILY metoprolol succinate ER 12.5 mg PO DAILY montelukast 10 mg PO DAILY 90 days multivitamin 1 tab PO DAILY psyllium husk (Metamucil) 2 tsp PO DAILY PRN rosuvastatin 20 mg PO BEDTIME 90 days sennosides (senna) 17.2 mg (2 x 8.6 mg) PO BEDTIME 30 days sumatriptan succinate (Imitrex) 25 mg PO Q2-4H PRN 10 days tiotropium bromide (Spiriva with HandiHaler) 1 cap inhalation DAILY tramadol 50 mg PO DAILY PRN vit C-E-zinc hy-ihib-mwe-zeax 250 mg-200 unit -12.5 mg-1 mg (ICaps AREDS2) 1 cap PO DAILY HPI Comments Details: Patient is a 65-year-old female with asthma, depression, hypothyroidism, hypertension, hyperlipidemia, migraine headaches, 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 Orosco. At that time she was following up for her fibromyalgia and polyarticular osteoarthritis. She was complaining of right knee instability which she was going to follow up with her orthopedic surgeon about. She also reports continued back spasms responding to cyclobenzaprine and tramadol Currently doing okay, Having knee revision in March 2025 and will be on recovery for 7 weeks atleast She is concerned about the muscle spasm Rheumatologic History: Fibromyalgia and polyarticular osteoarthritis Tramadol: 2017 to present Cyclobenzaprine: 2017 to present Gabapentin: Prior to 2011 to present Current Rheumatology Medication(s): Tramadol 50 mg daily p.r.n. Gabapentin 1200 mg daily Cyclobenzaprine 10 mg daily [facility] Medical History (Updated 02/19/25 @ 07:49 by Danielle Jean MD) Encounter for medication monitoring Polyarticular osteoarthritis History of cigarette smoking Encounter for annual wellness visit (AWV) in Medicare patient Abdominal pain Rash Contact dermatitis Upper respiratory tract infection Impacted cerumen, bilateral Fatigue Dietary counseling Screening for cervical cancer Physical exam Tubular adenoma of colon Diverticular disease Acute diverticulitis Macular degeneration Seborrheic keratosis Dyslipidemia Depression Asthma COPD (chronic obstructive pulmonary disease) HTN (hypertension) Hypothyroid Fibromyalgia Lumbar spondylosis Surgical History History of colonoscopy Hx laparoscopic cholecystectomy History of surgery H/O breast biopsy History of hysterectomy History of knee replacement procedure of right knee History of knee replacement procedure of left knee Family History Father Unknown family medical history Mother Unknown family medical history Social History Household Members: Spouse Housing: House Do you presently have visiting nurse or other home services: No Alcohol intake: never Patient Tobacco Use Status: Never used Tobacco e-Cigarette/Vaping Use: Never Used Second Hand Smoke Exposure: No Advance Directives Date on File: 01/08/22 service: No Current occupational status: disabled Cognitive needs: No Hearing needs: No Vision needs: No Review of Systems Const Details: Review of Systems Constitutional: Denies fever, chills, weight loss ENT: Denies vision changes, eye pain or eye redness, dental caries, dry mouth GI: Denies nausea, vomiting, diarrhea, abdominal pain, change in BM Pulm: Denies SOB, GARRETT, hemoptysis, wheezing Cards: Denies chest pain, palpitations Skin: Denies Raynaud's, rash, nail changes, photosensitivity, TECHNICAL ASSISTANT: Denies headaches, weakness, paresthesias, recurrent falls MSK: as per HPI All other systems reviewed and are unremarkable except noted above Physical Exam Vital Signs: Last Vital Signs Pulse 75 02/19/25 07:39 BP 134/100 H 02/19/25 07:39 Pulse Ox 97 02/19/25 07:39 Oxygen Delivery Method Room Air 02/19/25 07:39 BMI result Body Mass Index 33.6 Vital signs reviewed Physical Examination CONSTITUITIONAL Patient alert and cooperative. Well appearing and in no apparent painful distress HEENT Conjunctiva and sclera clear. ?Pupils equal round and reactive to light. ?No lymphadenopathy. ? CHEST/RESPIRATORY SYSTEM Normal respiratory effort and able to speak in complete sentences. ?Clear to auscultation bilaterally. ?No crackles, rales, rhonchi, wheezes heard. CARDIAC SYSTEM Regular rate and rhythm. ?S1 and S2 heard no murmurs. ?Radial pulses intact bilaterally MSK Hands: ?Able to make a fist. No synovitis noted to the MCPs, PIPs or DIPs. ?No tenderness to palpation of these joints. No deformities noted. ? Wrists: ?Full range of motion at the wrists without pain. ?No tenderness to palpation or synovitis noted to the wrists. Elbows: Full range of motion without pain. No tenderness, weakness, swelling, increased warmth or erythema. Shoulders: Full range of active range of motion. No tenderness, weakness, swelling, increased warmth or erythema. Knees: ?Full range of motion. ?No tenderness, swelling, increased warmth or erythema.?No effusion or crepitations Ankles: Full range of motion. ?No tenderness, swelling, increased warmth or erythema.? Feet: ?Negative squeeze test. ?No tenderness to palpation or swelling of the MTPs. Tender points:?Tenderness to palpation of the bilateral trapezius, supraspinatus, greater trochanters, anterior costochondral junctions, bilateral gluteal areas, bilateral suboccipital muscle insertions SKIN Skin intact without rashes. Results Reviewed Results Reviewed: Laboratory Tests 01/25/25 07:15 WBC 7.3 RBC 4.94 Hgb 14.0 Hct 43.7 Plt Count 312 Sodium 143 Potassium 3.7 Chloride 109 H Carbon Dioxide 30 H BUN 11 Creatinine 0.75 AST 51 H ALT 73 H 25-OH Vitamin D Total 99.6 XR Bilateral Hands 09/2022 FINDINGS: RIGHT HAND: No fracture or dislocation. Minimal degenerative changes of the distal interphalangeal joints. No cortical erosion. Soft tissues are unremarkable. LEFT HAND: No fracture or dislocation. Minimal degenerative changes of the distal interphalangeal joints. No cortical erosion. Soft tissues are unremarkable. IMPRESSION: 1. No acute osseous abnormality. 2. Minimal degenerative changes of the distal interphalangeal joints. Assessment & Plan Assessment & Plan (1) Polyarticular osteoarthritis: Code(s): M15.9 - Polyosteoarthritis, unspecified Category: Medical Plan: #Polyarticular OA Patient is a 65-year-old female with polyarticular osteoarthritis and fibromyalgia here today for follow up. Patient continues to have intermittent pains but manages this with her current regimen. Discussed the risks of cyclobenzaprine and tramadol and patient is willing to accept these risks. I discussed switching cyclobenzaprine to tizanidine because it has less i nteractions. Patient will check her notes and get back to me if she has tried it in the past. If she hasn't tried it we will do a trial of this medication= Plan - Gabapentin 1200mg daily (prescribed by other provider) - Cylobenzaprine 10mg daily - Tramadol 50mg daily - RTC 1 year (2) Fibromyalgia: Code(s): M79.7 - Fibromyalgia Category: Medical Plan: #Fibromyalgia As above (3) Encounter for medication monitoring: Comment: tramadol pain contract updated 09/09/2022 Code(s): Z51.81 - Encounter for therapeutic drug level monitoring Category: Medical Plan: Patient is aware of the risks of using tramadol with cyclobenzaprine including increased somnolence and serotonin syndrome. Patient has been on this medication combination for years and is willing to accept the risks associated with it. Plan I spent 20 minutes reviewing the record and labs, taking a history, examining the patient, discussing the treatment plan, ordering diagnostic work up and documenting in the medical record Medications: Refilled cyclobenzaprine Do not take with Tramadol 10 mg PO DAILY PRN 30 caps 6RF muscle spasm M79.7 - Fibromyalgia tramadol Do not take with Cyclobenzaprine (Flexeril) 50 mg PO DAILY PRN 30 tabs 5RF pain M79.7 - Fibromyalgia Coding Level of Care Code Est Pt Level 3 (52806) Diagnoses Polyarticular osteoarthritis M15.9 Fibromyalgia M79.7 Encounter for medication monitoring Z51.81
[2025-02-19 07:39] VITALS: BP 134/100; PULSE 75; O2SAT 97; BMI 33.6
== END 2025-02-19 08:13 | disposition home or self-care (01) ==
LOC: HO.RHE 07:32
PROVIDERS: PCP Nurse Practitioner Family; Visit Provider Student in an Organized Health Care Education/Training Program
DX: M15.9 Polyosteoarthritis, unspecified (principal); M79.7 Fibromyalgia; Z51.81 Encounter for therapeutic drug level monitoring
CPT/HCPCS: 99213

== ENCOUNTER → 2025-02-19 07:32 | Outpatient (BNVA) | payer MEDICARE, OTHER, SELFPAY | PROVIDERS: PCP Nurse Practitioner Family; Visit Provider Student in an Organized Health Care Education/Training Program | DX: M15.9 Polyosteoarthritis, unspecified (principal); M79.7 Fibromyalgia; Z51.81 Encounter for therapeutic drug level monitoring | CPT/HCPCS: 99212 ==

== ENCOUNTER 2025-02-20 08:57 | Outpatient (REF) | payer MEDICARE, OTHER, SELFPAY ==
--- NOTE | ~2025-02-20 | US_ITS ---
CLINICAL HISTORY: R74.8 - Abnormal levels of other serum enzymes --- Additional Notes or Special Inst ructions: Elevated liver enzymes Exam: Ultrasound of the abdomen, complete. Comparison: None. Findings: Liver measures 14 cm in long axis. Liver is of normal echotexture without focal lesion or intrahepatic biliary ductal dilatation. Common bile duct is dilated to 8.2 mm. However, no discrete intraluminal filling defects seen within the common bile duct. Gallbladder is surgically absent. Increased echotexture throughout the pancreas without discrete mass or pancreatic ductal dilatation. Spleen is unremarkable. There is a 7 mm simple cyst within the left kidney. Kidneys otherwise unremarkable. Atherosclerotic calcification of the abdominal aorta without aneurysmal dilatation. Inferior vena cava is patent. No free fluid. Impression: 1. Likely postcholecystectomy ectasia of the common bile duct. Correlation with the patient's bilirubin level is suggested. 2. Echogenic pancreas is most characteristic of fatty replacement. 3. Subcentimeter simple left renal cyst. This document has been electronically signed by: Issac Crandall MD on 02/21/2025 10:04:15
--- OUTSIDE RECORDS SUMMARY | 2025-02-20 10:14 | XMS_ITS ---
Author Organization [facility] Address [address] [place] [address] Care Team Providers Care It Help Desk Manager Name Role Phone Marcos Samuels Primary Care Provider Susanne Austin Unavailable [phone] Allergies Allergen (clinical drug ingredient) Drug/Non Drug [...] 025 Encounters Encounter Location Date Provider Diagnosis [facility] [address] [address] 10/25/2024 Susanne Garrison Ingrown toenail L60.0 Assessments Encounter Date Diagnosis (ICD Code) Assessment Notes Treatment Notes Treatment Clinical Notes Section Notes 10/25/2024 Ingrown toenail (ICD-10 - L60.0) Plan Of Treatment Next Appt Details Follow Up: prn, Reason: Progress Notes * Radha JEAN LDOB: (64 yo F)Acc No.[id number]:10/25/2024 Progress Note Patient:?Radha JEAN Provider:?Susanne Garrison DPM :1960???Age:64 Y???Sex:Female D ate:10/25/2024 Address:[id number] Pcp:JOSELO Cruz Subjective: * Chief Complaints: * [...] 11/1998hysterectomy 07/2008cholecystectomy 11/1983left knee replacement 2013hip surgery-tendon ffvuim-uybjpnxjvb-zhgjc tibial band repair colonoscopy 12/2021 * Hospitalization/Major [...] yes, walking. ?Marital status: . ?Occupation: retired- [employer]. ???Drug/Alcohol:?AUDIT-C (Standard)?Did you have a drink containing [...] DPM Date:?0 10/25/2024 Generated for Virgilio barreto/Alin/eTransmitting on:?02/20/2025 10:14 AM EDT History and Physical Notes * [...]
--- OUTSIDE RECORDS SUMMARY | 2025-02-20 10:14 | XMS_ITS ---
Author Organization [facility] Address [address] [place] [address] Care Team Providers Care Supervisor Metal Cans Name Role Phone Marcos Samuels Primary Care Provider Unav Susanne Wolfe [phone] Medications Medication SIG (Take, Route, Fr equency, Duration) Notes Start Date End Date Status Amoxicillin 875 MG 1 tablet Orally Twic e a day for 5 day(s) 09/21/2024 Active Encounters Encounter Location Date Provider [facility] [address] [place] [address] 09/21/2024 Susanne Garrison Plan Of Treatment Medication Medication Name Sig Start Date Stop Date Notes Amoxicillin 875 MG 1 tablet Orally Twic e a day for 5 day(s) 09/21/2024 Progress Notes * Radha JEAN LDOB: (64 yo F)Acc No.[id number]:09/21/2024 Patient:?Radha JEAN :1960???Age:64 Y???Sex:Female Address:[address] [place] [address] * Refills? Start Amoxicillin Tablet, 875 MG, Orally, 10, 1 tablet, Twice a day, 5 day(s) * true * Date:? Generated for Candisi ng/Faraheelg/eTransmitting on:?02/20/2025 10:14 AM EDT
--- OUTSIDE RECORDS SUMMARY | 2025-02-20 10:15 | XMS_ITS | Patient Health Record ---
Author Organization [facility] [place] Address [address] [place] [address] Care Team Providers Care Valet Parker Name Role Phone Marcos Samuels Primary Care Provider Susanne Austin Unavailable [phone] John Levine Unavailable [phone] Allergies Allergen (clinical drug ingredient) Drug/Non Drug [...] Status Risk Notes Problem Acquired hallux valgus (20109639) Hallux valgus (acquired), left foot (M20.12) Active confirmed Problem Localized, primary osteoarthritis of the ankle and/or foot (975472329) Primary osteoarthrit is, right ankle and foot (M19.071) Active confirmed Problem Localized, primary osteoarthritis of the ankle and/or foot (293646351) Primary osteoarthrit is, left ankle and foot (M19.072) Active confirmed Problem Acquired hammer toe of right foot (0376631598583179) Other hammer toe(s) (acquired), right foot (M20.41) Active confirmed Problem Acquired hammer toe of left foot (8726052967235404) Other hammer toe(s) (acquired), left foot (M20.42) [...] Ordered Date Performed Result Body Sit e 17134-KTK 07/31/2024 N/A 34209-DDEYCYK SKIN/TISSUE 08/16/2024 N/A 46291-AWN 09/04/2024 N/A 41028-XFXKEQI SKIN/TISSUE 09/20/2024 N/A Encounters Encounter Location Date Provider Diagnosis [address] [address] 06/25/2024 John Levine Ingrowing nail L60.0 ; Primary osteoarthritis, left ankle and foot M19.072 ; Primary osteoarthritis, right ankle and foot M19.071 ; Metatarsalgia, left foot M77.42 ; Metatarsalgia, right foot M77.41 ; Hallux valgus (acquired), left foot M20.12 ; Other hammer toe(s) (acquired), left foot M20.42 ; Other hammer toe(s) (acquired), right foot M20.41 and Tinea unguium B35.[address] [address] 07/31/2024 Susanne Garrison Ingrown nail L60.[address] [address] 08/16/2024 Susanne Garrison Xerosis of skin L85.3 and Skin ulcer of toe of left foot with fat layer exposed L97.522 [facility] [address] [address] 09/04/2024 Susanne Garrison Ingrown nail L60.[address] [address] 09/20/2024 Susanne Garrison Skin ulcer of toe of right foot with fat layer exposed L97.512 [facility] [address] [address] 10/25/2024 Susanne Garrison Ingrown toenail L60.[address] [facility] [address] 08/01/2024 [facility] [address] 09/21/2024 Susanne Garrison Assessments Encounter Date Diagnosis [...] X ray : Foot, right 3V 07/09/2019 92042-Gafs Destruction, 1-12/16/2014 85751-Zntv Destruction, -01/16/2015 01345-ZKY 07/31/2024 82259-LOF 09/04/2024 11122-YTHSLIV SKIN/TISSUE 09/20/2024 20849-UAOJMXI SKIN/TISSUE 08/16/2024 Insurance Providers Payer Name Payer Address Payer Phone Subscriber Number Group Number Insured Name Patient Relationship to Insured Coverage Start Date Coverage End Date Medicare National Govt [employer] [address] [place] [address] [id number] Radha Jean Self - patient is the insured [employer] [address] [place] [address] [id number] Radha Jean Self - patient is the [...] 11/1983 left knee replacement 2012 hip surgery-tendon bmvhkh-sxzgxaldet-vzl an tibial band repair colonoscopy 12/2021
--- OUTSIDE RECORDS SUMMARY | 2025-02-20 10:15 | XMS_ITS ---
Author Organization [facility] Address [address] [place] [address] Care Team Providers Care Club Attendant Name Role Phone Aj JOSUE, Marcos Primary Care Provider Unav ailable Susanne Garrison Unavailable [phone] REASON FOR VISIT X CHG Encounters Encounter Location Date Provider Diagnosis [facility] [address] [place] [address] 10/25/2024 Susanne Garrison Plan Of Treatment No Information Progress Notes * Radha JEAN LDOB: (65 yo F)Acc No.[id number]:10/25/2024 Progress Note Patient:?Radha JEAN Provider:?Susanne Garrison DPM :1960???Age:64 Y???Sex:Female D ate:10/25/2024 [address] [id number] Pcp:JOSELO Crzu Subjective: * Chief Complaints: * ???1. X [...] DPM Date:?0 10/25/2024 Generated for Candisi ng/Faraheelg/eTransmitting on:?02/20/2025 10:14 AM EDT
== END 2025-02-20 08:58 | disposition home or self-care (01) ==
LOC: HO.HMGCX 08:57
PROVIDERS: PCP Nurse Practitioner Family; Referring Provider Nurse Practitioner; Visit Provider Nurse Practitioner Family
DX: R74.8 Abnormal levels of other serum enzymes (principal)
CPT/HCPCS: 76700

== ENCOUNTER → 2025-02-20 08:59 | Outpatient (BNV) | payer MEDICARE, OTHER, SELFPAY | PROVIDERS: PCP Nurse Practitioner Family; Referring Provider Nurse Practitioner; Visit Provider Radiology Diagnostic Radiology | DX: N28.1 Cyst of kidney, acquired (principal); R74.8 Abnormal levels of other serum enzymes | CPT/HCPCS: 76700 ==

== ENCOUNTER → 2025-02-22 08:00 | Outpatient (BNVA) | payer MEDICARE, OTHER, SELFPAY | PROVIDERS: PCP Nurse Practitioner Family; Visit Provider Physician Assistant Surgical ==

== ENCOUNTER 2025-03-01 07:57 | Outpatient (REF) | payer MEDICARE, OTHER, SELFPAY ==
--- OUTSIDE RECORDS SUMMARY | 2025-03-01 08:00 | XMS_ITS | Patient Health Record ---
Author Organization [facility] [place] Address [address] [place] [address] Care Team Providers Care Head Loft Worker Name Role Phone Marcos Samuels Primary Care Provider Susanne Austin Unavailable [phone] John Levine Unavailable [phone] Allergies Allergen (clinical drug ingredient) Drug/Non Drug [...] Status Risk Notes Problem Acquired hallux valgus (14272605) Hallux valgus (acquired), left foot (M20.12) Active confirmed Problem Localized, primary osteoarthritis of the ankle and/or foot (862635074) Primary osteoarthrit is, right ankle and foot (M19.071) Active confirmed Problem Localized, primary osteoarthritis of the ankle and/or foot (099371344) Primary osteoarthrit is, left ankle and foot (M19.072) Active confirmed Problem Acquired hammer toe of right foot (5719972528745866) Other hammer toe(s) (acquired), right foot (M20.41) Active confirmed Problem Acquired hammer toe of left foot (2653331924835949) Other hammer toe(s) (acquired), left foot (M20.42) [...] Ordered Date Performed Result Body Sit e 24357-IXMSPPN SKIN/TISSUE 09/20/2024 N/A 01585-AAU 09/04/2024 N/A 22733-BQQGQKY SKIN/TISSUE 08/16/2024 N/A 60875-CLY 07/31/2024 N/A Encounters Encounter Location Date Provider Diagnosis [address] [address] 06/25/2024 John Levine Ingrowing nail L60.0 ; Primary osteoarthritis, left ankle and foot M19.072 ; Primary osteoarthritis, right ankle and foot M19.071 ; Metatarsalgia, left foot M77.42 ; Metatarsalgia, right foot M77.41 ; Hallux valgus (acquired), left foot M20.12 ; Other hammer toe(s) (acquired), left foot M20.42 ; Other hammer toe(s) (acquired), right foot M20.41 and Tinea unguium B35.[address] [address] 07/31/2024 Susanne Garrison Ingrown nail L60.[address] [address] 08/16/2024 Susanne Garrison Xerosis of skin L85.3 and Skin ulcer of toe of left foot with fat layer exposed L97.522 [facility] [address] [address] 09/04/2024 Susanne Garrison Ingrown nail L60.[address] [address] 09/20/2024 Susanne Garrison Skin ulcer of toe of right foot with fat layer exposed L97.512 [facility] [address] [address] 10/25/2024 Susanne Garrison Ingrown toenail L60.[address] [facility] [address] 08/01/2024 [facility] [address] 09/21/2024 Susanne Garrison Assessments Encounter Date Diagnosis (ICD Code) Assessment Notes Treatment Notes Treatment Clinical Notes Section Notes 07/31/2024 Ingrown nail (ICD-10 - L60.0) 08/16/2024 Xerosis of skin (ICD-10 - L85.3) 08/16/2024 Skin ulcer of toe of left foot with fat layer exposed (ICD-10 - L97.522) Patient Educated with: WOUND CARE INSTRUCTIONS.p df (WOUND CARE INSTRUCTIONS.p df) 09/04/2024 Ingrown nail (ICD-10 - L60.0) 10/25/2024 Ingrown toenail (ICD-10 - L60.0) 06/25/2024 Ingrowing nail (ICD-10 - L60.0) 06/25/2024 Primary osteoarthritis, left ankle and foot (ICD-10 - M19.072) 06/25/2024 Primary osteoarthritis, right ankle and foot (ICD-10 - M19.071) 09/20/2024 Skin ulcer of toe of right foot with fat layer exposed (ICD-10 - L97.512) Patient Educated with: WOUND CARE INSTRUCTIONS.p df (WOUND CARE INSTRUCTIONS.p df) 06/25/2024 Metatarsalgia, left foot (ICD-10 - M77.42) [...] X ray : Foot, right 3V 07/09/2019 08542-Uaou Destruction, 1-12/16/2014 44417-Wxon Destruction, -01/16/2015 64193-APF 09/04/2024 48490-UCO 07/31/2024 43458-FDWCLZL SKIN/TISSUE 09/20/2024 92470-PSZYZAR SKIN/TISSUE 08/16/2024 Insurance Providers Payer Name Payer Address Payer Phone Subscriber Number Group Number Insured Name Patient Relationship to Insured Coverage Start Date Coverage End Date Medicare National Govt Sv[employer] [address] [place] [address] [id number] Radha Jean Self - patient is the insured [employer] [address] [place] [address] [id number] Radha Jean Self - patient is the [...] 11/1983 left knee replacement 2012 hip surgery-tendon wmuetz-yykgnjkqvn-jfr an tibial band repair colonoscopy 12/2021
[2025-03-01 10:45] LABS: Phosphorus 3.5 mg/dL (2.7-4.5)
[2025-03-01 11:06] LABS: Total Protein Urine Random < 7 mg/dL (<12)
[2025-03-01 11:19] LABS: Appearance Urine Clear; Color Urine Yellow; Glucose Urine UA Negative (Negative); Leukocyte Esterase Urine Negative (Negative); Nitrite Urine Negative (Negative); PH 6.5 (5.0-9.0); Specific Gravity - Urine <= 1.005 (1.005-1.025); Urine Blood Negative (Negative); Urine Ketones Negative (Negative); Urine Protein Negative (Neg-Trace)
[2025-03-04 18:18] LABS: Anti Glomerular Basement Memb <1.0 AI; Myeloperoxidase Antibody <1.0 AI; Proteinase 3 PR3 Antibodies <1.0 AI
[2025-03-04 21:43] LABS: Prot Elec - Albumin 3.8 g/dL (3.8-4.8); Prot Elec - Alpha1 0.2 g/dL (0.2-0.3); Prot Elec - Alpha2 0.5 g/dL (0.5-0.9); Prot Elec - Beta 1 0.4 g/dL (0.4-0.6); Prot Elec - Beta 2 0.3 g/dL (0.2-0.5); Prot Elec - Gamma 0.5 g/dL (0.8-1.7); Prot Elec - Total Protein 5.7 g/dL (6.1-8.1)
[2025-03-06 09:43] LABS: Neutrophil Cyto Ab Screen NEGATIVE (NEGATIVE)
== END 2025-03-01 07:58 | disposition home or self-care (01) ==
LOC: HO.HMGCLDS 07:57
PROVIDERS: PCP Nurse Practitioner Family; Visit Provider Internal Medicine Hypertension Specialist
DX: R80.9 Proteinuria, unspecified (principal)
CPT/HCPCS: 36415; 81003; 82570; 83520; 84100; 84156; 84165; 84550; 86021; 86036

== ENCOUNTER 2025-03-11 09:47 | Outpatient (AMB) | payer MEDICARE, OTHER, SELFPAY ==
--- NOTE | 2025-03-11 09:50 | HO.NEPHOV ---
Vital Signs 03/11/25 09:52 Height 5 ft 3.5 in Weight 196 lb BMI 34.2 BP 122/80 Blood Pressure Location Rt brachial Position Sitting Pulse 73 Pulse Source Pulse Oximeter Pulse Oximetry (%) 97 Oxygen Delivery Method Room Air Intake Visit Reasons: 1 MO FU/ Conf Trading Analyst Required: No Accompanied by: Self / Same As Patient Allergies lactose Allergy (Unknown, Verified 03/11/25 09:51) lactose intolerant GI upset sulfamethoxazole Allergy (Unknown, Verified 03/11/25 09:51) vomiting tizanidine Allergy (Verified 03/11/25 09:51) Vomiting doxycycline Adverse Reaction (Severe, Verified 03/11/25 09:51) Diarrhea HPI Comments Details: Radha is a pleasant 65-year-old woman referred for with newly identified proteinuria from a recent urinalysis. Proteinuria was not found in previous urinalyses, and the patient reports prior episodes of microscopic hematuria that have resolved. She has undergoned extensive urological work up including cystoscopy , which was negative. The patient has a history of stable, mildly elevated liver enzymes due to rosuvastatin use, and ano h/o alcohol and tobacco use. Her prior kidney function tests have been normal. There is no indication of acute kidney dysfunction at this time. The patient's history includes osteoarthritis with a previous knee replacement and scheduled revision, spondylolisthesis, scoliosis and she takes Diclofenac 50 mg daily for more than 5 years. She also has a history of a single urinary tract infection, several years ago, not related to current symptoms. 03/11/25 65-year-old female presenting with concerns regarding hyperuricemia. Her uric acid level was previously noted at 6.0 mg/dL. She does not exhibit symptoms of gout or associated arthropathies. The dietary cause was potentially identified as increased shellfish consumption during a recent vacation. The patient also presents with vitamin D intake concerns, which she has adjusted to mitigate prior excess levels. An additional focus is her scheduled knee surgery involving the removal of fragments from her kneecap, with prior bilateral surgeries providing historical context. [facility] Medical History (Updated 02/19/25 @ 07:49 by Danilele Jean MD) Encounter for medication monitoring Polyarticular osteoarthritis History of cigarette smoking Encounter for annual wellness visit (AWV) in Medicare patient Abdominal pain Rash Contact dermatitis Upper respiratory tract infection Impacted cerumen, bilateral Fatigue Dietary counseling Screening for cervical cancer Physical exam Tubular adenoma of colon Diverticular disease Acute diverticulitis Macular degeneration Seborrheic keratosis Dyslipidemia Depression Asthma COPD (chronic obstructive pulmonary disease) HTN (hypertension) Hypothyroid Fibromyalgia Lumbar spondylosis Surgical History History of colonoscopy Hx laparoscopic cholecystectomy History of surgery H/O breast biopsy History of hysterectomy History of knee replacement procedure of right knee History of knee replacement procedure of left knee Family History Father Unknown family medical history Mother Unknown family medical history Social History Household Members: Spouse Housing: House Do you presently have visiting nurse or other home services: No Alcohol intake: never Patient Tobacco Use Status: Never used Tobacco e-Cigarette/Vaping Use: Never Used Second Hand Smoke Exposure: No Advance Directives Date on File: 01/08/22 service: No Current occupational status: disabled Cognitive needs: No Hearing needs: No Vision needs: No Physical Exam Vital Signs: Last Vital Signs Pulse 73 03/11/25 09:52 BP 122/80 03/11/25 09:52 Pulse Ox 97 03/11/25 09:52 Oxygen Delivery Method Room Air 03/11/25 09:52 BMI result Body Mass Index 34.2 Results Reviewed Nephrology Results: Phosphorus 3.5 mg/dL (2.7-4.5) 03/01/25 Urine Protein Negative mg/dL (Neg-Trace) 03/01/25 Urine Creatinine 31.50 mg/dL 03/01/25 Assessment & Plan Assessment & Plan (1) Proteinuria: Code(s): R80.9 - Proteinuria, unspecified Category: Medical Plan The UA shows a SG of > 1.030 suggesting a concentrated urine. Dip stick can be falsely positive for protien in a concentrated urine. Shall repeat UA after adequate hydration. Protein : creatinine ratio and SPEP with basic serologies especially with a h/o micro hematuria were normal Renal function is normal Vit D level is elevated at 99 and she is on 2000 IU a day. Serum calcium is normal Would suggest to lower Vit D to 1000 U a day No need ofr further work up Mild elevation in uric acid Asymptomatic Discussed low purine diet and recheck Orders: Orders Basic Metabolic Panel 6 Months R80.9 - Proteinuria, unspecified Creatinine Urine 6 Months R80.9 - Proteinuria, unspecified Total Protein Urine Random 6 Months R80.9 - Proteinuria, unspecified Uric Acid 6 Months R80.9 - Proteinuria, unspecified Vitamin D 25-OH Total 6 Months R80.9 - Proteinuria, unspecified UA and rflx microscopic 6 Months R80.9 - Proteinuria, unspecified Coding Level of Care Code Est Pt Level 4 (74590) Diagnoses Proteinuria R80.9
[2025-03-11 09:52] VITALS: BP 122/80; PULSE 73; O2SAT 97; BMI 34.2
--- OUTSIDE RECORDS SUMMARY | 2025-03-11 10:32 | XMS_ITS | Patient Health Record ---
Author Organization [facility] [place] Address [address] [place] [address] Care Team Providers Care Community Outreach Specialist Name Role Phone Marcos Samuels Primary Care Provider Susanne Austin Unavailable [phone] John Levine Unavailable [phone] Allergies Allergen (clinical drug ingredient) Drug/Non Drug [...] Status Metaproterenol Sulfate - as directed Active Imitrex Active Claritin Active Wellbutrin 300 Activ e Losartan Potassium 100 MG 1 tablet Orally Once a day Active Doxycycline Hyclate 100 MG 1 capsule Orally Once a day for 10 day(s) 07/13/2023 Not-Taking Cranberry Not-Taking Ammonium Lactate 12 % 1 application Externally to affected areas of dry skin to feet except for between the toes Twice a day for 30 days Active Amoxicillin 875 MG 1 tablet Orally Twice [...] Status Risk Notes Problem Acquired hallux valgus (97583480) Hallux valgus (acquired), left foot (M20.12) Active confirmed Problem Localized, primary osteoarthritis of the ankle and/or foot (150077463) Primary osteoarthrit is, right ankle and foot (M19.071) Active confirmed Problem Localized, primary osteoarthritis of the ankle and/or foot (547943620) Primary osteoarthrit is, left ankle and foot (M19.072) Active confirmed Problem Acquired hammer toe of right foot (7309847917566680) Other hammer toe(s) (acquired), right foot (M20.41) Active confirmed Problem Acquired hammer toe of left foot (4882596238021479) Other hammer toe(s) (acquired), left foot (M20.42) [...] Ordered Date Performed Result Body Sit e 04986-EDZ 07/31/2024 N/A [id number] SKIN/TISSUE 08/16/2024 N/A 18841-TRX 09/04/2024 N/A 24890-[id number] SKIN/TISSUE 09/20/2024 N/A Encounters Encounter Location Date Provider Diagnosis [address] [address] 06/25/2024 John Levine Ingrowing nail L60.0 ; Primary osteoarthritis, left ankle and foot M19.072 ; Primary osteoarthritis, right ankle and foot M19.071 ; Metatarsalgia, left foot M77.42 ; Metatarsalgia, right foot M77.41 ; Hallux valgus (acquired), left foot M20.12 ; Other hammer toe(s) (acquired), left foot M20.42 ; Other hammer toe(s) (acquired), right foot M20.41 and Tinea unguium B35.[address] [address] 07/31/2024 Susanne Garrison Ingrown nail L60.[address] [address] 08/16/2024 Susanne Garrison Xerosis of skin L85.3 and Skin ulcer of toe of left foot with fat layer exposed L97.522 [facility] [address] [address] 09/04/2024 Susanne Garrison Ingrown nail L60.[address] [address] 09/20/2024 Susanne Garrison Skin ulcer of toe of right foot with fat layer exposed L97.[address] [facility] [address] 10/25/2024 Susanne Garrison Ingrown toenail L60.[address] [address] 03/11/2025 Susanne Garrison Xerosis of skin L85.[address] [address] 08/01/2024 Susanne Garrison [address] [address] 09/21/2024 Susanne Meli Assessments Encounter Date Diagnosis (ICD Code) Assessment [...] L60.0) 10/25/2024 Ingrown toenail (ICD-10 - L60.0) 03/11/2025 Xerosis of skin (ICD-10 - L85.3) 09/20/2024 Skin ulcer of toe of right [...] 02/10/2022 X ray : Foot, right 3V 07/09/2019 X ray : Foot, right 3V 07/22/2014 22819-Qtmf Destruction, 1-12/16/2014 14582-Eang Destruction, -01/16/2015 87016-YNG 07/31/2024 46495-PZZ 09/04/2024 83352-[id number] SKIN/TISSUE 09/20/2024 57173-[id number] SKIN/TISSUE 08/16/2024 Insurance Providers Payer Name Payer Address Payer Phone Subscriber Number Group Number Insured Name Patient Relationship to Insured Coverage Start Date Coverage End Date Medicare National Govt Sv[employer] [address] [facility] [place] [address] [id number] Radha Jean Self - patient is the insured [facility] [employer] [address] [place] [address] [phone] [id number] Radha Jean Self - patient is the [...] 11/1983 left knee replacement 2012 hip surgery-tendon thpaqv-lqubjxilhh-mve an tibial band repair colonoscopy 12/2021
== END 2025-03-11 10:07 | disposition home or self-care (01) ==
LOC: HO.HKA 09:48
PROVIDERS: PCP Nurse Practitioner Family; Visit Provider Internal Medicine Hypertension Specialist
DX: R80.9 Proteinuria, unspecified (principal)
CPT/HCPCS: 99214

== ENCOUNTER → 2025-03-11 09:47 | Outpatient (BNVA) | payer MEDICARE, OTHER, SELFPAY | PROVIDERS: PCP Nurse Practitioner Family; Visit Provider Internal Medicine Hypertension Specialist | DX: R80.9 Proteinuria, unspecified (principal) | CPT/HCPCS: 99212 ==

== ENCOUNTER 2025-03-12 09:47 | Outpatient (AMB) | payer MEDICARE, OTHER, SELFPAY ==
--- NOTE | 2025-03-12 09:31 | A.OFFVIS_ITS ---
VS Expanded 03/12/25 09:33 Height 5 ft 3.5 in Weight 194 lb BMI 33.8 Intake Visit Reasons: TV F/U [facility] Allergies lactose Allergy (Unknown, Verified 03/11/25 09:51) lactose intolerant GI upset sulfamethoxazole Allergy (Unknown, Verified 03/11/25 09:51) vomiting tizanidine Allergy (Verified 03/11/25 09:51) Vomiting doxycycline Adverse Reaction (Severe, Verified 03/11/25 09:51) Diarrhea Medication List - Last Reconciled 03/12/25 by BRENDA Cooley albuterol sulfate 90 mcg/actuation 2 puffs inhalation Q4-6H PRN albuterol sulfate 2.5 mg (3 mL) inhalation QID PRN bupropion HCl XL 300 mg PO QAM calcium carbonate (Calcium 600) 600 mg PO BID 90 days cholecalciferol (vitamin D3) 25 mcg PO Q OTHER DAY coenzyme Q10 100 mg PO DAILY cyclobenzaprine 10 mg PO DAILY PRN docusate sodium (Colace) 100 mg PO BID fluticasone propion-salmeterol 500-50 mcg/dose (Wixela Inhub) 1 ea PO BID PRN gabapentin 1,200 mg (2 x 600 mg) PO DAILY 60 days levothyroxine 125 mcg PO QAM 90 days loratadine 10 mg PO DAILY losartan 25 mg PO DAILY lutein 40 mg PO DAILY magnesium 250 mg PO DAILY metoprolol succinate ER 12.5 mg PO DAILY montelukast 10 mg PO DAILY 90 days multivitamin 1 tab PO DAILY psyllium husk (Metamucil) 2 tsp PO DAILY PRN rosuvastatin 20 mg PO BEDTIME 90 days sennosides (senna) 17.2 mg (2 x 8.6 mg) PO BEDTIME 30 days sumatriptan succinate (Imitrex) 25 mg PO Q2-4H PRN 10 days tiotropium bromide (Spiriva with HandiHaler) 1 cap inhalation DAILY tramadol 50 mg PO DAILY PRN vit C-E-zinc ya-xkjj-lbf-zeax 250 mg-200 unit -12.5 mg-1 mg (ICaps AREDS2) 1 cap PO DAILY HPI Comments Details: Pt presents in followup for [facility], visit #11. Starting weight: 203 Weight at last visit: 194 Weight today: 194 Total weight change since starting program: Having surgery April 24 for kneecap reconstruction. Will be non weight bearing for 6-7 weeks. I lost focus for a while . Was on vacation last week, [place]. Gained 5lbs while away but was able to lose it already. Restarted shakes this weekend after returning. Has been having a shake in AM, midmorning will have Kashi with blueberries. Per her commercial credit analyst she is going to have egg whites for lunch. Midafternoon has cottage cheese. Dinner will have protein and veg as below Current meal plan: breakfast- Pure protein shake with half scoop (12.5g), collagen (9g), greens powder, metamucil lunch- 4 forks protein (2 eggs, cottage cheese, or vietnamese yogurt) with fruit or veg snack- Pure protein bar dinner- 6 forks protein with salad or veg after dinner may have sugar free fudgesicle has been having some fruit as midmorning snack Exercise: Kandis Rose, at least 1 mile usually every day has been using a weekly progress report with [employer], explored Sit and Be Fit videos swimming 2x/week usually also has a cubii - under desk elliptical has knee pain/instability- walks with walking sticks, fell in her bathroom a few weeks ago [facility] Medical History (Updated 02/19/25 @ 07:49 by Danielle Jean MD) Encounter for medication monitoring Polyarticular osteoarthritis History of cigarette smoking Encounter for annual wellness visit (AWV) in Medicare patient Abdominal pain Rash Contact dermatitis Upper respiratory tract infection Impacted cerumen, bilateral Fatigue Dietary counseling Screening for cervical cancer Physical exam Tubular adenoma of colon Diverticular disease Acute diverticulitis Macular degeneration Seborrheic keratosis Dyslipidemia Depression Asthma COPD (chronic obstructive pulmonary disease) HTN (hypertension) Hypothyroid Fibromyalgia Lumbar spondylosis Surgical History History of colonoscopy Hx laparoscopic cholecystectomy History of surgery H/O breast biopsy History of hysterectomy History of knee replacement procedure of right knee History of knee replacement procedure of left knee Family History Father Unknown family medical history Mother Unknown family medical history Social History Household Members: Spouse Housing: House Do you presently have visiting nurse or other home services: No Alcohol intake: never Patient Tobacco Use Status: Never used Tobacco e-Cigarette/Vaping Use: Never Used Second Hand Smoke Exposure: No Advance Directives Date on File: 01/08/22 service: No Current occupational status: disabled Cognitive needs: No Hearing needs: No Vision needs: No Telehealth Telehealth Telehealth Platform: Telephone Location of provider rendering services: practice address Location of patient: address on file Patient Identification confirmed using: Name, : Yes Telehealth method: voice only Patient verbally consented to treatment: Yes Patient verbally consented to billing insurance company: Yes Patient informed of any privacy concerns related to visit: Yes Minutes spent on Phone/Video with Pt.: 16 Assessment & Plan Assessment & Plan (1) Obesity: Code(s): E66.9 - Obesity, unspecified Category: Medical Plan She wants to lose additional weight prior to knee surgery, so we discussed consistency and adherence to plan. She is meal prepping now to freeze meals for after surgery. Exercise in whatever ways are comfortable and do not cause pain. She is hopeful she can still swim after surgery since she will be non weight bearing. Will be doing PT soon after surgery. She is interested in support groups, will ask about next one when she comes for a weigh in later this week. RTC 3mo.
[2025-03-12 09:33] VITALS: BMI 33.8
--- OUTSIDE RECORDS SUMMARY | 2025-03-12 10:56 | XMS_ITS | Patient Health Record ---
Author Organization [facility] [place] Address [address] [place] [address] Care Team Providers Care Diesel Technology Instructor Name Role Phone Marcos Samuels Primary Care Provider Susanne Austin Unavailable [phone] John Levine Unavailable [phone] Allergies Allergen (clinical drug ingredient) Drug/Non Drug [...] Status Risk Notes Problem Acquired hallux valgus (67248909) Hallux valgus (acquired), left foot (M20.12) Active confirmed Problem Localized, primary osteoarthritis of the ankle and/or foot (046164385) Primary osteoarthrit is, right ankle and foot (M19.071) Active confirmed Problem Localized, primary osteoarthritis of the ankle and/or foot (297528717) Primary osteoarthrit is, left ankle and foot (M19.072) Active confirmed Problem Acquired hammer toe of right foot (6928119876533411) Other hammer toe(s) (acquired), right foot (M20.41) Active confirmed Problem Acquired hammer toe of left foot (9941191098572693) Other hammer toe(s) (acquired), left foot (M20.42) [...] Ordered Date Performed Result Body Sit e 00923-QIC 07/31/2024 N/A 41278-[id number] SKIN/TISSUE 08/16/2024 N/A 18573-YZQ 09/04/2024 N/A 53852-YEMMWTK SKIN/TISSUE 09/20/2024 N/A Encounters Encounter Location Date Provider Diagnosis [address] [address] 06/25/2024 John Levine Ingrowing nail L60.0 ; Primary osteoarthritis, left ankle and foot M19.072 ; Primary osteoarthritis, right ankle and foot M19.071 ; Metatarsalgia, left foot M77.42 ; Metatarsalgia, right foot M77.41 ; Hallux valgus (acquired), left foot M20.12 ; Other hammer toe(s) (acquired), left foot M20.42 ; Other hammer toe(s) (acquired), right foot M20.41 and Tinea unguium B35.[address] [address] 07/31/2024 Susanne Garrison Ingrown nail L60.[address] [address] 08/16/2024 Susanne Garrison Xerosis of skin L85.3 and Skin ulcer of toe of left foot with fat layer exposed L97.522 [facility] [address] [address] 09/04/2024 Susanne Garrison Ingrown nail L60.[address] [address] 09/20/2024 Susanne Garrison Skin ulcer of toe of right foot with fat layer exposed L97.512 [facility] [address] [address] 10/25/2024 Susanne Garrison Ingrown toenail L60.[address] [facility] [address] 08/01/2024 Susanne Garrison [facility] [address] 09/21/2024 Susanne Garrison [facility] [address] 03/11/2025 Susanne Garrison Xerosis of skin L85.3 Assessments Encounter Date Diagnosis (ICD Code) Assessment [...] X ray : Foot, right 3V 07/09/2019 49468-Pqaj Destruction, 1-12/16/2014 78003-Iejv Destruction, -01/16/2015 65362-BAG 07/31/2024 73831-QOM 09/04/2024 94336-[id number] SKIN/TISSUE 09/20/2024 51733-GEXDJHF SKIN/TISSUE 08/16/2024 Insurance Providers Payer Name Payer Address Payer Phone Subscriber Number Group Number Insured Name Patient Relationship to Insured Coverage Start Date Coverage End Date Medicare National Govt Svcs Inc [address] [facility] [address] [id number] Radha Jean Self - patient is the insured [facility] [employer] [address] [place] [address] [id number] Radha Jean Self - patient is the [...] 11/1983 left knee replacement 2012 hip surgery-tendon jdtkqb-yxfmcbtbtl-pcr an tibial band repair colonoscopy 12/2021
== END 2025-03-12 09:50 | disposition home or self-care (01) ==
LOC: HO.HBS 09:47
PROVIDERS: PCP Nurse Practitioner Family; Visit Provider Physician Assistant Surgical
DX: E66.9 Obesity, unspecified (principal); Z68.33 Body mass index [BMI] 33.0-33.9, adult
CPT/HCPCS: 99214; G2211

== ENCOUNTER → 2025-03-12 09:47 | Outpatient (BNVA) | payer MEDICARE, OTHER, SELFPAY | PROVIDERS: PCP Nurse Practitioner Family; Visit Provider Physician Assistant Surgical | DX: Z13.89 Encounter for screening for other disorder (principal) ==

== ENCOUNTER 2025-03-27 08:15 | Outpatient (AMB) | payer MEDICARE, OTHER, SELFPAY ==
--- NOTE | 2025-03-27 08:22 | A.OFFVIS_ITS ---
Intake Visit Reasons: 1YR Intake Note: Patient presents for follow up visit on: microscopic hematuria Urology Medications: none Blood Thinner: none Smoker: quit 1993 (socially) [employer] Treater Required: No Accompanied by: Self / Same As Patient Allergies lactose Allergy (Unknown, Verified 03/27/25 08:52) lactose intolerant GI upset sulfamethoxazole Allergy (Unknown, Verified 03/27/25 08:52) vomiting tizanidine Allergy (Verified 03/27/25 08:52) Vomiting doxycycline Adverse Reaction (Severe, Verified 03/27/25 08:52) Diarrhea Medication List - Last Reconciled 03/27/25 by JOEL Locke albuterol sulfate 90 mcg/actuation 2 puffs inhalation Q4-6H PRN albuterol sulfate 2.5 mg (3 mL) inhalation QID PRN bupropion HCl XL 300 mg PO QAM calcium carbonate (Calcium 600) 600 mg PO BID 90 days cholecalciferol (vitamin D3) 25 mcg PO Q OTHER DAY coenzyme Q10 100 mg PO DAILY cyclobenzaprine 10 mg PO DAILY PRN docusate sodium (Colace) 100 mg PO BID fluticasone propion-salmeterol 500-50 mcg/dose (Wixela Inhub) 1 ea PO BID PRN gabapentin 1,200 mg (2 x 600 mg) PO DAILY 60 days levothyroxine 125 mcg PO QAM 90 days loratadine 10 mg PO DAILY losartan 25 mg PO DAILY lutein 40 mg PO DAILY magnesium 250 mg PO DAILY metoprolol succinate ER 12.5 mg PO DAILY montelukast 10 mg PO DAILY 90 days multivitamin 1 tab PO DAILY psyllium husk (Metamucil) 2 tsp PO DAILY PRN rosuvastatin 20 mg PO BEDTIME 90 days sennosides (senna) 17.2 mg (2 x 8.6 mg) PO BEDTIME 30 days sumatriptan succinate (Imitrex) 25 mg PO Q2-4H PRN 10 days tiotropium bromide (Spiriva with HandiHaler) 1 cap inhalation DAILY PRN tramadol 50 mg PO DAILY PRN vit C-E-zinc oq-gmgq-bns-zeax 250 mg-200 unit -12.5 mg-1 mg (ICaps AREDS2) 1 cap PO DAILY HPI Comments Details: Radha is a pleasant 65-year-old female patient of Dr. Rocha. She presents to the office today of her microscopic hematuria. She has a past medical history of asthma, COPD, depression, dyslipidemia, fibromyalgia, hypertension, hypothyroid, and macular degeneration. In discussion with the patient today she reports to be doing and feeling well. She denies having had any bothersome urinary issues or concerns since her last office visit here. She does report having followed up with Nephrology for concerns of proteinuria however this has since resolved. She discusses her upcoming surgery with Orthopedics through [facility] for her right kneecap. Patient with a history of microscopic hematuria and has underwent an in office cystoscopy with Theresa 03/25 that noted no suspicious bladder lesions. She currently denies any bothersome urinary issues or concerns. She discusses being very active at the [employer] with swimming as well as home aerobics. She does have a previous history of nicotine dependence however quit over 35 years ago. When asked she denies urinary urgency, urinary frequency, incontinence, nocturia, hematuria, dysuria, foul smelling urine, changes to urinary stream, flank pain, fever, and or chills. She is happy with her current voiding parameters. Previous workup has included a CT urogram 01/23 that no bilateral hydronephrosis or nephrolithiasis. No suspicious renal mass. The bladder is unremarkable. Urine cytology 01/23, 02/22, 03/26 Negative for high-grade urothelial carcinoma. [facility] Medical History Encounter for medication monitoring Polyarticular osteoarthritis History of cigarette smoking Encounter for annual wellness visit (AWV) in Medicare patient Abdominal pain Rash Contact dermatitis Upper respiratory tract infection Impacted cerumen, bilateral Fatigue Dietary counseling Screening for cervical cancer Physical exam Tubular adenoma of colon Diverticular disease Acute diverticulitis Macular degeneration Seborrheic keratosis Dyslipidemia Depression Asthma COPD (chronic obstructive pulmonary disease) HTN (hypertension) Hypothyroid Fibromyalgia Lumbar spondylosis Surgical History History of colonoscopy Hx laparoscopic cholecystectomy History of surgery H/O breast biopsy History of hysterectomy History of knee replacement procedure of right knee History of knee replacement procedure of left knee Family History Father Unknown family medical history Mother Unknown family medical history Social History Household Members: Spouse Housing: House Do you presently have visiting nurse or other home services: No Alcohol intake: never Patient Tobacco Use Status: Never used Tobacco e-Cigarette/Vaping Use: Never Used Second Hand Smoke Exposure: No Advance Directives Date on File: 01/08/22 service: No Current occupational status: disabled Cognitive needs: No Hearing needs: No Vision needs: No Review of Systems Const All systems reviewed & are unremarkable except as noted in HPI and below Reports as per HPI Eyes Reports as per HPI ENT Reports no additional complaints Card Reports as per HPI Resp Reports as per HPI GI Reports no additional complaints Reports as per HPI Musc Reports no additional complaints Neuro Reports as per HPI Psych Reports no additional complaints Endo Reports no additional complaints Alan/Lymph Reports no additional complaints Aller/Immun Reports no additional complaints Physical Exam Const General: cooperative, healthy appearing, comfortable, no acute distress, well developed, alert and awake Orientation/consciousness: patient oriented x3 Limitations: no limitations HEENT Head: Yes normal to inspection, Yes normocephalic and Yes atraumatic Ears: hearing grossly normal bilaterally Eyes General: appearance normal, both eyes and all related structures Neck Neck: Yes normal visual inspection and Yes trachea midline Chest Chest palpation & inspection: normal inspection of the chest Resp Effort & Inspection: normal respiratory effort and able to speak in complete sentences Cardio Rate: regular rate GI Inspection: Yes normal to inspection General: Yes no CVA tenderness Back/Spine/Pelvis Back: no CVA tenderness Skin General skin exam: no rashes or lesions noted Neuro General: patient oriented x3 Extrem General: Yes normal to inspection Psych Appearance: grossly normal and well kempt Mental Status: mental status grossly normal Speech and movement: Normal speech and movement present and Clear speech present Affect: normal affect Attitude: cooperative Thought process: Normal thought process present Thought content: Normal thought content present Insight: Fair insight present (Psych) Judgement: Fair judgement present (Psych) Results AMB Urinalysis, Automated UA Leukoctes 70 Darling/uL Last Edit by Artpeyman Christinedariusz [facility] on 03/27/25 09:11 UA Nitrite Last Edit by Artpeyman Christinedariusz, [facility] on 03/27/25 09:11 UA Urobilinogen 0.2 mg/dL Last Edit by Mariano Nancidariusz, [facility] on 03/27/25 09:1 1 UA Protein 15 mg/dL Last Edit by Artpeyman Christinedariusz, [facility] on 03/27/25 09:11 UA pH 6.0 Last Edit by Mariano Nancidariusz, [facility] on 03/27/25 09:11 UA Blood 0 Osvaldo/uL Last Edit by Artpeyman Christinedariusz, [facility] on 03/27/25 09:11 UA Specific [place] 1.010 Last Edit by Mariano Nancidariusz [facility] on 03/27/25 09: 11 UA Ketone Last Edit by Artpeyman Christinedariusz [facility] on 03/27/25 09:11 UA Bilirubin 0 mg/dL Last Edit by Mariano Nancidariusz, [facility] on 03/27/25 09:11 UA Glucose 0 mg/dL Last Edit by Mariano Nancidariusz [facility] on 03/27/25 09:11 Assessment & Plan Assessment & Plan (1) History of cigarette smoking: Code(s): Z87.891 - Personal history of nicotine dependence Category: Social Hx (2) Microhematuria: Code(s): R31.29 - Other microscopic hematuria Category: Medical Plan In office urinalysis results reviewed with the patient today; as noted above; will send for urine cytology. Patient currently denies any bothersome urinary issues or concerns. She reports be happy with current voiding parameters. Will continue with surveillance monitoring of microscopic hematuria in the setting of previous nicotine dependence. Follow-up in 1 year with urinalysis; or sooner with any issues, concerns, and or questions. Orders: Orders AMB Urinalysis Automated Today JOEL Locke Z13.9 - Encounter for screening, unspecified Urine Cytology Today JOEL Locke R31.29 - Other microscopic hematuria Medications: Changed From tiotropium bromide (Spiriva with HandiHaler) 1 cap inhalation DAILY 30 inhalations 1RF To tiotropium bromide (Spiriva with HandiHaler) 1 cap inhalation DAILY PRN JOEL Hays Patient Instructions: The patient had an opportunity to ask questions regarding the treatment plan. All questions were answered. Physical exam, labs, and imaging were discussed and reviewed in detail. As well as risks, benefits, and discussion of treatment choices. No major barriers to understanding were identified. The patient expressed understanding and agreement with the above treatment plan. The patient was made aware they should contact our office by phone for worsening of their current condition, the appearance of new symptoms, or with any questions or concerns. Compliance is encouraged with any medications and follow up testing that is ordered. It is a privilege to be allowed the opportunity to participate in? your urological care.? Again, if you have any questions or concerns If you have any questions or concerns please do not hesitate to contact me. The office is [phone]. This note is constructed using voice recognition software. While every effort has been made to ensure accuracy bilingual teacher assistant errors may have been included. Yours sincerely, Abi Jauregui, DANNIE-BC Coding Level of Care Code Est Pt Level 3 (47032) Complex EM visit Add On G2211 Diagnoses History of cigarette smoking Z87.891 Microhematuria R31.29
--- OUTSIDE RECORDS SUMMARY | 2025-03-27 08:28 | XMS_ITS | Patient Health Record ---
[facility] [place] Address [address] [place] [address] Care Team Providers Care Ammonia Still Operator Name Role Phone Marcos Samuels Primary Care Provider Susanne Austin Unavailable [phone] John Levine Unavailable [phone] Allergies Allergen (clinical drug ingredient) Drug/Non Drug [...] Status Risk Notes Problem Acquired hallux valgus (66457538) Hallux valgus (acquired), left foot (M20.12) Active confirmed Problem Localized, primary osteoarthritis of the ankle and/or foot (036394763) Primary osteoarthrit is, right ankle and foot (M19.071) Active confirmed Problem Localized, primary osteoarthritis of the ankle and/or foot (421942256) Primary osteoarthrit is, left ankle and foot (M19.072) Active confirmed Problem Acquired hammer toe of right foot (6406566159770061) Other hammer toe(s) (acquired), right foot (M20.41) Active confirmed Problem Acquired hammer toe of left foot (5487415125675201) Other hammer toe(s) (acquired), left foot (M20.42) [...] Ordered Date Performed Result Body Sit e 37402-CPD 07/31/2024 N/A 25573-BHGFVFZ SKIN/TISSUE 08/16/2024 N/A 96740-RNV 09/04/2024 N/A 83958-ICNZEEL SKIN/TISSUE 09/20/2024 N/A Encounters Encounter Location Date Provider Diagnosis [address] [address] 06/25/2024 John Levine Ingrowing nail L60.0 ; Primary osteoarthritis, left ankle and foot M19.072 ; Primary osteoarthritis, right ankle and foot M19.071 ; Metatarsalgia, left foot M77.42 ; Metatarsalgia, right foot M77.41 ; Hallux valgus (acquired), left foot M20.12 ; Other hammer toe(s) (acquired), left foot M20.42 ; Other hammer toe(s) (acquired), right foot M20.41 and Tinea unguium B35.[address] [address] 07/31/2024 Susanne Garrison Ingrown nail L60.[address] [address] 08/16/2024 Susanne Garrison Xerosis of skin L85.3 and Skin ulcer of toe of left foot with fat layer exposed L97.522 [facility] [address] [address] 09/04/2024 Susanne Garrison Ingrown nail L60.[address] [address] 09/20/2024 Susanne Garrison Skin ulcer of toe of right foot with fat layer exposed L97.512 [facility] [address] [address] 10/25/2024 Susanne Garrison Ingrown toenail L60.[address] [facility] [address] 08/01/2024 Susanne Garrison [facility] [address] 09/21/2024 Susanne Garrison [facility] [address] 03/11/2025 Susanne Garrison Xerosis of skin L85.3 [...] X ray : Foot, right 3V 07/09/2019 24510-Qwps Destruction, 1-12/16/2014 97088-Pibt Destruction, -01/16/2015 56024-DRF 07/31/2024 83602-UGP 09/04/2024 44791-HUOXYBU SKIN/TISSUE 09/20/2024 68813-EZJKJMK SKIN/TISSUE 08/16/2024 Insurance Providers Payer Name Payer Address Payer Phone Subscriber Number Group Number Insured Name Patient Relationship to Insured Coverage Start Date Coverage End Date Medicare National [employer] [address] [place] [address] [id number] Radha Jean Self - patient is the insured [facility] [employer] [address] [place] [address] [phone] [id number] Radha Jean Self - patient is the [...] 11/1983 left knee replacement 2012 hip surgery-tendon uctlkr-yczsmnvmzy-tve an tibial band repair colonoscopy 12/2021
== END 2025-03-27 09:04 | disposition home or self-care (01) ==
LOC: HO.HUSH 08:16
PROVIDERS: PCP Nurse Practitioner Family; Visit Provider Nurse Practitioner Family
DX: Z87.891 Personal history of nicotine dependence (principal); R31.29 Other microscopic hematuria; Z13.9 Encounter for screening, unspecified
CPT/HCPCS: 99213; G2211

== ENCOUNTER 2025-03-27 08:15 | Outpatient (REF) | payer MEDICARE, OTHER, SELFPAY ==
[2025-03-27 16:33] LABS: Urine Cytology See Pathology rpt
== END 2025-03-27 08:16 | disposition home or self-care (01) ==
LOC: HO.LAB 08:15
PROVIDERS: PCP Nurse Practitioner Family; Visit Provider Nurse Practitioner Family
DX: R31.29 Other microscopic hematuria (principal); Z87.891 Personal history of nicotine dependence
CPT/HCPCS: 81003; 88112; 99212

== ENCOUNTER 2025-05-16 10:10 | Outpatient (AMB) | payer MEDICARE, OTHER, SELFPAY ==
--- OUTSIDE RECORDS SUMMARY | 2024-10-25 10:30 | XMS_ITS ---
Author Organization [facility] Address [address] [place] [address] Care Team Providers Care Process Design Chemical Engineer Name Role Phone Marcos Samuels Primary Care Provider Unav ailable Susanne Garrison Unavailable [phone] REASON FOR VISIT X CHG Encounters Encounter Location Date Provider Diagnosis [facility] [address] [place] [address] 10/25/2024 Susanne Garrison Plan Of Treatment No Information Progress Notes * Radha JEAN LDOB: (65 yo F)Acc No.[id number]:10/25/2024 Progress Note Patient: Radha SABILLON Provider: Wilmar Garrison DPM :1960 A ge:64 Y S ex:Female Date:10/25/2024 Address:[address] [place], [place] [id number] Pcp:JOSELO Cruz Subjective: * Chief Complaints: * [...] 10/25/2024 Generated for Printi ng/Faxing/eTransmitting on: 0 05/16/2025 09:22 AM EDT
--- NOTE | 2025-05-16 10:03 | MHC.PC.OV ---
Vital Signs 05/16/25 10:12 Height 5 ft 3.5 in BP 122/72 Blood Pressure Location Lt brachial Position Sitting Respiration 16 Pulse 69 Pulse Source Pulse Oximeter Temp 99.2 F Temp Source Oral Pulse Oximetry (%) 98 Oxygen Delivery Method Room Air Intake Visit Reasons: 6 month follow up [employer] Required: No Accompanied by: Self / Same As Patient Allergies lactose Allergy (Unknown, Verified 05/16/25 10:23) lactose intolerant GI upset sulfamethoxazole Allergy (Unknown, Verified 05/16/25 10:23) vomiting tizanidine Allergy (Verified 05/16/25 10:23) Vomiting doxycycline Adverse Reaction (Severe, Verified 05/16/25 10:23) Diarrhea Medication List - Last Reconciled 05/16/25 by JENNIFFER HaysP- albuterol sulfate 90 mcg/actuation 2 puffs inhalation Q4-6H PRN albuterol sulfate 2.5 mg (3 mL) inhalation QID PRN bupropion HCl XL 300 mg PO QAM calcium carbonate (Calcium 600) 600 mg PO BID 90 days cholecalciferol (vitamin D3) 25 mcg PO Q OTHER DAY coenzyme Q10 100 mg PO DAILY cyclobenzaprine 10 mg PO DAILY PRN docusate sodium (Colace) 100 mg PO BID fluticasone propion-salmeterol 500-50 mcg/dose (Wixela Inhub) 1 ea PO BID PRN gabapentin 1,200 mg (2 x 600 mg) PO DAILY 60 days levothyroxine 125 mcg PO QAM 90 days loratadine 10 mg PO DAILY losartan 25 mg PO DAILY lutein 40 mg PO DAILY magnesium 250 mg PO DAILY metoprolol succinate ER 12.5 mg PO DAILY montelukast 10 mg PO DAILY 90 days multivitamin 1 tab PO DAILY psyllium husk (Metamucil) 2 tsp PO DAILY PRN rosuvastatin 20 mg PO BEDTIME 90 days sennosides (senna) 17.2 mg (2 x 8.6 mg) PO BEDTIME 30 days sumatriptan succinate (Imitrex) 25 mg PO Q2-4H PRN 10 days tiotropium bromide (Spiriva with HandiHaler) 1 cap inhalation DAILY PRN tramadol 50 mg PO DAILY PRN vit C-E-zinc vf-rcfl-goh-zeax 250 mg-200 unit -12.5 mg-1 mg (ICaps AREDS2) 1 cap PO DAILY Tobacco use date assessed: 05/16/25 Fall risk assessment: 2 + Falls in past year Last assessed Fall Risk: 05/16/25 Dental Screening Dental Screen Date: 10/27/23 HPI 6 month follow up HPI Details Chief Complaint The patient presents for follow-up on dyslipidemia, hypertension, and postoperative care for right total knee arthroplasty. History of Present Illness The patient is a 65-year-old female presenting with follow-up for dyslipidemia and hypertension management. Her blood pressure has been stable at home and during the visit, with no reports of chest pain, dizziness, or blurred vision. She denies any shortness of breath and reports that her headaches are well controlled. The patient is also recovering from a right total knee arthroplasty performed approximately three weeks ago. She reports minimal pain and is able to extend and flex the knee, with ongoing physical therapy sessions three times a week at home. The incision is well approximated with some warmth and faint erythema, but she is progressing well and will soon begin stair exercises. Social History Health Maintenance Review of Systems - Cardiovascular: Denies chest pain, dizziness, or blurred vision. - Respiratory: Denies dyspnea. - Neurological: Reports headaches are well controlled. Physical Exam General: Cooperative, healthy appearing, comfortable, no acute distress and well developed Orientation: Patient oriented x3 Limitations: Patient is in a wheelchair due to recent right total knee surgery Head: Normal to inspection Ears: Hearing grossly normal bilaterally Nose: Normal external nose present Face and sinus: Normal facial exam Eyes: Appearance normal, both eyes and all related structures Neck: Normal visual inspection and Yes full ROM Respiratory: Normal respiratory effort and able to speak in complete sentences. Clear to auscultation bilaterally Cardiovascular: Regular rate and rhythm. Normal S1 and S2 GI: Normal to inspection. Soft to palpation and nontender Skin: No rashes or lesions noted Neuro: Patient oriented x3 Extremities: Right knee with faint redness and some warmth, minimal pain, positive dorsalis pedis to right lower extremity. Normal to inspection otherwise. Results Plan The patient will continue with her current management plan for dyslipidemia and hypertension, with labs ordered to monitor these conditions. She is advised to maintain her blood pressure monitoring at home and report any significant changes. For her postoperative care, she will continue physical therapy three times a week and is expected to start stair exercises soon. The incision site will be monitored for any signs of infection, given the faint erythema and warmth noted. Patient Instructions - Continue with current medications for dyslipidemia and hypertension. - Monitor blood pressure at home and report any significant changes. - Attend physical therapy sessions as scheduled and begin stair exercises as advised. - Observe the incision site for any signs of infection, such as increased redness or warmth. [facility] Medical History Encounter for medication monitoring Polyarticular osteoarthritis History of cigarette smoking Encounter for annual wellness visit (AWV) in Medicare patient Abdominal pain Rash Contact dermatitis Upper respiratory tract infection Impacted cerumen, bilateral Fatigue Dietary counseling Screening for cervical cancer Physical exam Tubular adenoma of colon Diverticular disease Acute diverticulitis Macular degeneration Seborrheic keratosis Dyslipidemia Depression Asthma COPD (chronic obstructive pulmonary disease) HTN (hypertension) Hypothyroid Fibromyalgia Lumbar spondylosis Surgical History History of colonoscopy Hx laparoscopic cholecystectomy History of surgery H/O breast biopsy History of hysterectomy History of knee replacement procedure of right knee History of knee replacement procedure of left knee Family History Father Unknown family medical history Mother Unknown family medical history Social History Household Members: Spouse Housing: House Do you presently have visiting nurse or other home services: No Alcohol intake: never Patient Tobacco Use Status: Never used Tobacco e-Cigarette/Vaping Use: Never Used Second Hand Smoke Exposure: No Advance Directives Date on File: 01/08/22 service: No Current occupational status: disabled Cognitive needs: No Hearing needs: No Vision needs: No Questionnaire PHQ-9 Over the last 2 weeks, how often have you been bothered by any of the following problems? 1. Little interest or pleasure in doing things: not at all 2. Feeling down, depressed, or hopeless: not at all 3. Trouble falling or staying asleep, or sleeping too much: not at all 4. Feeling tired or having little energy: not at all 5. Poor appetite or overeating: not at all 6. Feeling bad about yourself - or that you are a failure or have let yourself or your family down: not at all 7. Trouble concentrating on things, such as reading the newspaper or watching television: not at all 8. Moving or speaking so slowly that other people could have noticed. Or the opposite - being so fidgety or restless that you have been moving around a lot more than usual: not at all 9. Thoughts that you would be better off or of hurting yourself in some way: not at all Total score: 0 Depression Screening Interpretation: Negative Depression Screening Done: Yes 81278 - PHQ-9 Billing: Yes Source: Developed by Drs. Chadwick Scott, Lindsay Bender, Elliot Cox and colleagues, with an educational lucero from [employer]. Thrive Questionnaire Date Thrive assessed: 05/13/25 I am a: Patient What is your living situation today?: I have a steady place to live Within the past 12 months, did the food you bought not last and you didn't have the money to get more?: Never true Within the past 12 months, did you worry whether your food would run out before you got money to buy more?: Never true Do you have trouble paying for medicines?: No Do you have trouble getting transportation to medical appointments?: No Do you have trouble paying your heating and electricity bill?: No Do you have trouble taking care of your child, family member or friend?: No Do you have trouble with day-to-day activities such as bathing, preparing meals, shopping, managing finances, etc.?: No Are you currently unemployed and looking for a job?: No Are you interested in more education?: No THRIVE Score: 0 AUDIT C Alcohol Use Questionnaire (AUDIT-C) 1. How often do you have a drink containing alcohol?: Never 3. How often do you have six or more drinks on one occasion?: Never Total Score: 0 MCKENNA-7 AMB Questionnaire MCKENNA-7 Date MCKENNA - 7 assessed: 05/16/25 Feeling nervous, anxious, or on edge: 0 = Not at all Not being able to stop or control worryin = Not at all Worrying too much about different things: 0 = Not at all Trouble relaxin = Not at all Being so restless that it is hard to sit still: 0 = Not at all Becoming easily annoyed or irritable: 0 = Not at all Feeling afraid as if something awful might happen: 0 = Not at all Total MCKENNA-7 score (0-4 normal; 5-9 mild; 10-14 moderate; 15-21 severe): 0 Source: Developed by Drs. Chadwick Scott, Lindsay Bender, Elliot Cox and colleagues, with an educational lucero from [employer]. MCKENNA-7 Assessment Billing MCKENNA-7 Assessment Tool: MCKENNA-7 Assessment 15510 Physical exam (Primary Care) Vital Signs: Last Vital Signs Temp 99.2 F 05/16/25 10:12 Pulse 69 05/16/25 10:12 Resp 16 05/16/25 10:12 BP 122/72 05/16/25 10:12 Pulse Ox 98 05/16/25 10:12 Oxygen Delivery Method Room Air 05/16/25 10:12 Tobacco/Smoking Status: Tobacco use Status Tobacco use date assessed 05/16/25 05/16/25 10:15 Patient Tobacco Use Status Never used Tobacco 05/16/25 10:05 e-Cigarette/Vaping Use Never Used 05/16/25 10:05 PHQ-9: PHQ-9 Score PHQ-9: Total score 0 05/16/25 10:15 Depression Screening Interpretation: Negative Thrive Assessment: Date of Thrive Assessment Date Thrive assessed 05/13/25 05/16/25 10:05 Coding Level of Care Code Est Pt Level 3 (38971) Diagnoses Dyslipidemia E78.5 HTN (hypertension) I10 Status post total knee replacement, right Z96.651 Additional Codes MCKENNA-7 Assessment Billing - MCKENNA-7 Assessment Tool: MCKENNA-7 Assessment 55425 ([id number]) PHQ-9 - 02233 - PHQ-9 Billing: Yes ([id number]) Assessment & Plan Assessment & Plan (1) Dyslipidemia: Code(s): E78.5 - Hyperlipidemia, unspecified Category: Medical (2) HTN (hypertension): Code(s): I10 - Essential (primary) hypertension Category: Medical (3) Status post total knee replacement, right: Comment: 04/2025 Code(s): Z96.651 - Presence of right artificial knee joint Category: Surgical Plan . Orders: Orders Comprehensive Burt. Panel Fast Today E78.5 - Hyperlipidemia, unspecified, I10 - Essential (primary) hypertension UA CC w/rflx Micro + Cult Today E78.5 - Hyperlipidemia, unspecified, I10 - Essential (primary) hypertension Lipid Panel Today E78.5 - Hyperlipidemia, unspecified, I10 - Essential (primary) hypertension Complete Blood Count Auto Diff Today E78.5 - Hyperlipidemia, unspecified, I10 - Essential (primary) hypertension TSH reflex Free T4 Today E78.5 - Hyperlipidemia, unspecified, I10 - Essential (primary) hypertension
[2025-05-16 10:12] VITALS: BP 122/72; PULSE 69; RESP 16; TEMP 37.3; O2SAT 98
--- OUTSIDE RECORDS SUMMARY | 2025-05-16 10:52 | XMS_ITS | Clinical Summary ---
Author Organization [facility] Address [address] [place] [phone] Phone Care Team Providers Care Incident Coordinator Name Role Phone Marcos Rocha NP Primary Care Provider + Naomy Ornelas MD Unavailable [phone] Allergies Active Allergy Reactions Criticality Noted Date Comments Doxycycline Monohydrate 11/07/2023 Gadolinium-Containing Contrast Media Nausea and/or Vomiting 01/20/2018 Iodinated Contrast Media Unknown 08/24/2024 Lactose Unknown 08/24/2024 Penicillamine 04/15/2017 Other reaction(s): yeast infection Penicillins Nausea and/or Vomiting 11/07/2023 Sulfa (Sulfonamide Antibiotics) 04/15/2017 Other reaction(s): vomit Sulfamethoxazole-Trimeth oprim Unknown 08/24/2024 Medications gabapentin (NEURONTIN) 600 MG tablet Take 1,200 mg by mouth daily. bottle states take 2 tabs daily 04/27/20 25 Active cholecalciferol (VITAMIN D3) 2,000 unit tablet Take 2,000 Units by mouth daily. Active buPROPion (WELLBUTRIN XL) 300 MG ER 24 hr tablet Take 300 mg by mouth daily. Active loratadine (CLARITIN) 10 mg tablet Take 10 mg by mouth daily. Active CALCIUM ORAL Take 1,000 mg by mouth daily. Active losartan (COZAAR) 25 MG tablet Take 25 mg by mouth daily. Active montelukast (SINGULAIR) 10 mg tablet Take 10 mg by mouth nightly. Active WIXELA INHUB 500-50 mcg/dose DISKUS Inhale 500 mcg/actuation of fluticasone into the lungs 2 (two) times a day. 01/02/20 Active albuterol 2.5 mg /3 mL (0.083 %) nebulizer solution 01/02/20 Active coenzyme Q10 100 mg capsule Take 1 capsule by mouth every morning. 01/05/20 Active docusate sodium (COLACE) 100 MG capsule Take 1 capsule by mouth 2 (two) times a day. 02/19/20 Active therapeutic multivitamin tablet Take 1 tablet by mouth daily. Active magnesium oxide 250 mg (150 mg elemental) Tab Take 250 mg by mouth daily. Active metoprolol succinate (TOPROL-XL) 25 MG 24 hr tablet TAKE ONE-HALF TABLET 12.5 MG) BY MOUTH DAILY 07/11/20 Active rosuvastatin (CRESTOR) 20 MG tablet 06/08/20 Active levothyroxine (SYNTHROID, LEVOTHROID) 125 MCG tablet Take 125 mcg by mouth every morning. 06/08/20 Active ammonium lactate (AMLACTIN) 12 % cream 1 Application. Activ e lutein 40 mg Cap 1 capsule with a meal Orally Once a day for 30 day(s) Active SUMAtriptan (IMITREX) 25 MG tablet TAKE ONE TABLET BY MOUTH EVERY 2 TO 4 HOURS NEEDED FOR MIGRAINE HEADACHE FOR 10 DAYS. 07/11/20 24 Active estradioL (VAGIFEM) 10 mcg Tab 11/05/19 Active SENNA 8.6 mg tablet TAKE TWO TABLETS BY MOUTH AT BEDTIME FOR CONSTIPATION 02/08/20 Active cyclobenzaprine (FLEXERIL) 10 MG tablet TAKE 1 TABLET BY MOUTH DAILY NEEDED FOR MUSCLE SPASM; DO NOT TAKE WITH TRAMADOL 02/20/20 25 Active acetaminophen (TYLENOL) 325 mg tablet Take 2 tablets (650 mg total) by mouth every 6 (six) hours. 100 tablet 04/26/20 25 Active aspirin 81 MG EC tablet Take 1 tablet (81 mg total) by mouth 2 (two) times a day for 55 doses. 55 tablet 04/26/20 25 025 Active celecoxib (CELEBREX) 100 MG capsule Take 1 capsule (100 mg total) by mouth 2 (two) times a day. 60 capsule 04/26/20 25 Active ascorbic acid, vitamin C, (VITAMIN C) 500 MG tablet Take 500 mg by mouth daily. 04/27/20 Active antiox #8/om3/dha/epa/l ut/zeax (PRESERVISION AREDS 2, OMEGA-3, ORAL) Take 2 capsules by mouth daily. 04/27/20 Active Lactobacillus rhamnosus GG (CULTURELLE ORAL) Take 1 capsule by mouth daily. 04/27/20 Active oxyCODONE 5 MG immediate release tabletIndication s:History of revision of total replacement of right knee joint,Post-op pain Take 1 tablet (5 mg total) by mouth every 6 (six) hours as needed for pain (specific location in comments) (right knee). Partial fill ok 30 tablet 05/03/20 Active traMADol (ULTRAM) 50 mg tabletIndication s:pain,hold this medication while taking Oxycodone for post-surgical pain. Once pain is not requiring Oxycodone, okay to restart this medication instead. Take 50 mg by mouth every 6 (six) hours as needed for pain (specific location in comments). Discontin ued(Stop Taking at Discharge ) acetaminophen (TYLENOL) 325 mg tablet Take 2 tablets (650 mg total) by mouth every 4 (four) hours as needed for mild pain. 09/14/20 18 Discontin ued(Stop Taking at Discharge ) diclofenac sodium (VOLTAREN) 50 MG EC tablet 50 mg daily. 1 12/28/19 19 025 Discontin ued(Stop Taking at Discharge ) SPIRIVA WITH HANDIHALER 18 mcg inhalation capsule Inhale 18 mcg into the lungs daily as needed (bronchitis). 01/05/20 23 025 Discontin ued(Thera py Completed /No Longer Necessary ) diclofenac potassium (CATAFLAM) 50 MG tablet Take 50 mg by mouth 2 (two) times a day as needed. 11/30/19 25 025 Discontin ued(Stop Taking at Discharge ) aspirin 81 MG EC tablet Take 81 mg by mouth daily. Discontin ued(Stop Taking at Discharge ) mupirocin (BACTROBAN) 2 % ointment Apply topically 2 (two) times a day for 5 days. Apply topically just inside each nostril twice daily for 5 days prior to surgery including the morning of surgery. 30 g 04/03/20 25 025 Discontin ued(Stop Taking at Discharge ) oxyCODONE 5 MG immediate release tablet Take 1 tablet (5 mg total) by mouth every 6 (six) hours as needed for pain (specific location in comments) (right knee). 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 04/24/2025 Mild intermittent asthma without complication Pre-op evaluation 02/13/2025 Primary hypertension 02/13/2025 Primary osteoarthritis involving multiple joints 02/13/2025 History of total right knee replacement 11/08/19 Avascular necrosis of right patella 11/08/2024 Trochanteric bursitis of both hips 07/05/2018 Trochanteric bursitis of left hip 07/05/2018 Bilateral hip pain 06/12/2018 Resolved Problems Problem Noted Date Diagnosed Date Resolved Date Closed right hip fracture, initial encounter 04/26/2025 Encounters Date Type Department Care Team Description 05/13/2025 1:00 PM EDT Home Care Visit [facility] [address] [place] [phone] Samina Francis, PT PT HOME VISIT 05/10/2025 12:00 PM EDT Home Care Visit [facility] [address] [place] [phone] Samina Francis, PT PT HOME VISIT 05/09/2025 9:00 AM EDT Office Visit [facility] [address] [place] [phone] Juan Bojorquez, PACharissaC 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) 05/08/2025 1:00 PM EDT Home [facility] Visit [facility] [address] [place] [phone] Samina Francis, PT PT HOME VISIT 05/06/2025 10:00 AM EDT Home Care Visit [facility] [address] [place] [phone] Samina Francis, PT PT HOME VISIT 05/03/2025 12:00 PM EDT Home [facility] Visit [facility] [address] [place] [phone] Samina Francis, PT PT HOME VISIT 05/01/2025 11:30 AM EDT Home Care Visit [facility] [address] [place] [phone] Samina Francis, PT PT HOME VISIT 04/29/2025 12:30 PM EDT Home Care Visit [facility] [address] [place] [phone] Samina Francis, PT PT HOME VISIT 04/27/2025 11:00 AM EDT Home Care Visit [facility] [address] [place] [phone] Radha Erwin, PT PT OASIS START OF CARE (SOC) 04/27/2025 Plan of Care Documentation [facility] [address] [place] [phone] 04/24/2025 7:30 AM EDT - 04/24/2025 11:46 AM EDT Surgery OR Admitting Dept - Virtual Department [address] [place] [address] Michael Holland MD REVISION ARTHROPLASTY TOTAL KNEE 04/24/2025 7:23 AM EDT Anesthesia Event OR Admitting Dept - Virtual Department [address] [place] [phone] Davide Andino Jr., DO 04/24/2025 6:00 AM EDT - 04/26/2025 12:05 PM EDT Hospital Encounter [facility] [address] [address] Michael Holland MD Discharge Disposition: Home-Health Care [facility] 04/24/2025 Procedure Pass OR Admitting Dept - Virtual Department [address] [place] [phone] 04/23/2025 8:00 AM EDT Pre-Admission Testing Pre Procedure Evaluation [address] [place] [address] Michael Holland MD 04/03/2025 Orders Only [facility] Medicine [address] [place] [phone] Juan Bojorquez PA-C 04/02/2025 9:59 AM EDT - 04/02/2025 11:59 PM EDT Hospital Encounter [address] [address] Juan Bojorquez PA-C Discharge Disposition: Home or Self Care 04/02/2025 9:00 AM EDT Office Visit [facility] Orthopedics & Sports [address] [address] Juan Bojorquez PA-C Pre-op exam (Primary Dx); History of revision of total replacement of right knee joint 04/02/2025 Orders Only [facility] [address] [place] [phone] Homehealth, Etelvina Lopez MD 02/13/2025 8:00 AM EDT Office Visit [facility] [address] [facility] 2nd [place] [phone] Praful Fajardo MD Pre-op evaluation (Primary Dx); Mild intermittent asthma without complication; Primary hypertension; Primary osteoarthritis involving multiple joints from Last 3 Months Family History * Patient is adopted Relation Status Comments Father Mother Social History Tobacco Use Types Packs/Day Years Used Date Smoking Tobacco: Former Cigarettes 0.3 15 1 979 - 1994 Smokeless Tobacco: Never Tobacco Cessation:Counseling Given: Not Answered Comments:1 PPW Alcohol Use Standard Drinks/Week Comments No 0 (1 standard drink = 0.6 oz pur e alcohol) Home Health Assessment: Transportation Answer Date Recorded Lack of Transportation (Medical) No 04/27/2025 Lack of Transportation (Non-Medical) No 04/27/2025 Patient Unable or Declines to Respond No 04/27/2025 Education Answer Date Recorded Are you interested in more education? Not on ivett e 01/28/2023 Are you concerned about learning? Not on file 01/28/2023 No 01/28/2023 No 01/28/2023 Food Answer Date Recorded Within the past 6 months we worried whether our food would run out before we got money to buy more. Never True 04/24/2025 Within the past 6 months the food we bought just didn't last and we didn't have enough money to get more. Never True Residential Stability Answer Date Recor ded What is your housing situation today? I have martha sing 04/24/2025 How many times have you move d in the past 12 months? Zero (I did not move) 04/24/2025 Paying for Meds Answer Date Recorded Do you have trouble paying for medicines? No 04/24/2025 Paying Utility Bills Answer Date Record ed Do you have trouble paying your heating or elect ricity bill? No 04/24/2025 Transportation Answer Date Recorded Has the lack of transportati on kept you from medical appointments or from getting medications? No 04/24/2025 Digital Access Answer Date Recorded No 04/24/2025 Yes 04/24/2025 Do you have reliable internet access at home? Ye s 04/24/2025 Do you have a device (e.g., phone, tablet, computer) with a working camera? Yes 04/24/2025 Intimate Partner Violence Answer Date R ecorded Are you denied basic needs s uch as food, clothing, or medical care? No 04/24/2025 In the past 12 months have y ou been in a relationship with a person who hurts, threatens, or tries to control you? No 04/24/2025 Are you denied basic needs s uch as food, clothing, or medical care? No 04/24/2025 In the past 12 months have y ou been in a relationship with a person who hurts, threatens, or tries to control you? No 04/24/2025 Comments Unknown Sex and Gender Information Value Date Recorded Sex Assigned at Not on file Legal Sex Female 9:50 PM EDT Gender Identity Not on file Sexual Orientation Not on file Last Filed Vital Signs Vital Sign Reading Time Taken Comments Blood Pressure 110/60 05/13/2025 1:15 AM EDT Pulse 68 05/13/2025 1:15 AM EDT Temperature 36.7 C (98 F) 05/13/2025 1:15 AM EDT Respiratory Rate 16 05/13/2025 1:15 AM EDT Oxygen Saturation 98% 05/13/2025 1:15 AM EDT Inhaled Oxygen Concentration - - Weight 86.7 kg (191 lb 3.2 oz) 04/24/2025 6:30 A M EDT Height 160 cm (5' 3 ) 04/24/2025 6:30 AM EDT Body Mass Index 33.87 04/24/2025 6:30 AM EDT Plan of Treatment Upcoming Encounters Date Type Department Care Team (Late st Contact Info) Description 05/17/2025 1:00 PM EDT [facility] [address] [place] [phone] Samina Francis, PT [address] [place] [address] 05/22/2025 [facility] [address] [place] [phone] Samina Francis, PT [address] [place] [address] 05/24/2025 [facility]ment [facility] [address] [place] [phone] Samina Francis, PT [address] [place] [address] 05/28/2025 8:00 AM EDT Office Visit [facility] [address] [place] [phone] Juan Bojorquez PA-C 4 [facility] [place], [place] [phone] Klaus King, PT [address] [place] [address] 05/31/2025 8:15 AM EDT Office Visit [address] [address] Juan Bojorquez PA-C [address] [place] [address] Orthopedics Sports [facility], [place] [address] Klaus King, PT [address] [place] [address] 06/04/2025 8:15 AM EDT Office Visit [address] [address] Juan Bojorquez PA-C [address] [place] [address] Orthopedics Sports [facility], [place] [address] Andreina Naranjo PTA [address] [place] [phone] 06/06/2025 8:15 AM EDT Office Visit [address] [address] Juan Bojorquez PA-C [address] [place] [address], [place] [address] Andreina Naranjo PTA [address] [place] [address] 06/06/2025 9:30 AM EDT Office Visit [facility] Medicine [address] [place] [phone] Juan Bojorquez PA-C [address] [place] [address], [place] [address] 06/11/2025 8:00 AM EDT Office Visit [address] [place] [address] Juan Bojorquez PA-C [address] [place] [address] Klaus King, PT [address] [place] [address] 06/14/2025 8:15 AM EDT Office Visit [address] [address] Juan Bojorquez PA-C [address] [place] [phone] Klaus King, PT [address] [place] [address] 06/18/2025 8:15 AM EDT Office Visit [address] [address] Juan Bojorquez PA-C [address] [place] [address] Andreina Naranjo, PRODUCTION CONTROL SCHEDULER [address] [place] [address] 06/21/2025 8:15 AM EDT Office Visit [address] [address] Juan Bojorquez PA-C [address] [place] [address] Klaus King, PT [address] [place] [address] Health Maintenance Due Date Last Done Comments LIPID PANEL 1959 TSH LEVEL 1959 DEPRESSION SCREENING 1971 HEPATITIS C SCREENING 1977 MAMMOGRAM 1999 COLOGUARD 01/12/2004 COLONOSCOPY 01/12/2004 COLORECTAL CANCER SCREENING 01/12/2004 FIT TEST 01/12/2004 FOBT 01/12/2004 SIGMOIDOSCOPY 01/12/2004 VIRTUAL COLONOSCOPY 01/12/2004 PNEUMOCOCCAL VACCINES (50+ years) (3 of 3 - PCV20 or PCV21) 01/04/2022 01/04/2017, 12/12/2015 OSTEOPOROSIS SCREENING INITIAL (ONE-TIME) 01/12/2024 Adult Td,Tdap Booster 05/07/2024 05/07/2014 COVID-19 VACCINE ( season) 2024 10/06/2022, 08/05/2021, 12/24/2020, Additional history exists BLOOD PRESSURE 11/13/2025 05/13/2025 CREATININE LEVEL 04/26/2026 04/26/2025, , 01/28/2025 POTASSIUM LEVEL 04/26/2026 04/26/2025, 04/03, 01/28/2025 SCREENING FOR DIABETES 04/26/2028 04/26/2025, 2024 ZOSTER VACCINES Completed 11/15/2018, 06/04, 01/10/2018 RSV VACCINE Completed 09/05/2023 SMOKING STATUS SCREENING (Once After 26 Yrs) Completed 04/24/2025 HEPATITIS A VACCINES Aged Out No long er eligible based on patient's age to complete this topic HIB VACCINES Aged Out No longer eligi ble based on patient's age to complete this topic MENINGOCOCCAL VACCINES (ACWY) Aged Out No longer eligible based on patient's age to complete this topic MENINGOCOCCAL VACCINES (B) Aged Out N o longer eligible based on patient's age to complete this topic Medical Devices Implanted Type Area Network Administrator Device Identifier Shelf Expiration Date Model / Serial / Lot Knee Insert Tibial Implant Bar Locking Modular 15b - [id number] Implanted:Qty: 1 on 04/24/2025 by Michael Holland MD at [facility] [employer] Right: Knee [employer] 08/22/2034 [id number] / / [id number] Bilateral Knee Replacements [place] Suture 4.5mm Arthroscopy Reelx Stt Peek Stainless Steel Core Knotless Sharp Tip Expandable Sterile Bx/5ea - [id number] Implanted:Qty: 2 on 09/14/2018 by Chema Blankenship DO at [facility] Right: Hip [employer] 05/07/2020 [id number] / / [id number] Knee Bearing 16x63 To 67mm Insert Vanguard Posterior Stabilized Plus Medial Lateral Anterior - [id number] Implanted:Qty: 1 on 04/24/2025 by Michael Holland MD at [facility] Right: Knee [employer] 03/19/2028 [id number] / / [id number] Procedures Procedure Name Priority Date/Time Associated Diagnosis Comments CBC Routine 04/26/2025 6:33 AM EDT BASIC METABOLIC PANEL Timed 04/26/2025 6:33 AM EDT CBC Routine 04/25/2025 6:28 AM EDT BASIC METABOLIC PANEL Timed 04/25/2025 6:28 AM EDT XR KNEE 1-2 VIEWS (RIGHT) Routine 04/24/2025 11:12 AM EDT POCT GLUCOSE Routine 04/24/2025 10:23 AM EDT ANES SPINAL Routine 04/24/2025 7:36 AM EDT REVISION ARTHROPLASTY TOTAL KNEE 04/24/2025 7:33 AM EDT History of total right knee replacement Avascular necrosis of right patella Special Needs Revising patella, possible patellectomy ANES INJ,ANES AGENT,FEMORAL NERVE,SINGLE PERF Routine 04/24/2025 7:23 AM EDT CO ANESTHESIA PERIPHERAL BLOCK PLACEHOLDER Routine 04/24/2025 7:23 AM EDT TYPE AND SCREEN (ABO,RH,ANTIBODY SCREEN) STAT 04/24/2025 7:13 AM EDT POCT GLUCOSE Routine 04/24/2025 6:24 AM EDT XR KNEE 3 VIEW (RIGHT) Routine 04/02/2025 10:12 AM EDT Pre-op exam MRSA/MSSA PRE-OP PCR Routine 04/02/2025 9:01 AM EDT Pre-op exam from Last 3 Months Results * (ABNORMAL) CBC (04/26/2025 6:33 AM EDT) Only the most recent of2 resultswithin the time period is included. WBC 6.93 4.00 - 11.00 K/uL [facility] RBC 4.01 4.00 - 5.20 M/uL [facility] HGB 11.1(L) 12.0 - 16.0 g/dL [facility] HCT 34.3(L) 36.0 - 46.0 % [facility] PLT 245 150 - 450 K/uL [facility] MCV 85.5 80.0 - 100.0 fL [facility] MCH 27.7 27.0 - 31.0 pg [facility] MCHC 32.4 32.0 - 36.0 g/dL [facility] RDW 13.1 11.5 - 14.5 % [facility] MPV 8.8 8.4 - 12.0 fL [facility] NRBC 0.00 0.00 /100 WBCs [facility] ABSOLUTE NRBC 0.00 0.00 K/uL [facility] Blood 04/26/2025 6:33 AM EDT 04/26/2025 6:43 AM EDT us Juan Bojorquez PA-C LAB BLOOD ORDERABLES Candace morris Result [address] [address] * (ABNORMAL) Basic metabolic panel (04/26/2025 6:33 AM EDT) Only the most recent of2 resultswithin the time period is included. SODIUM 136 133 - 146 mmol/L [facility] CHLORIDE 100 96 - 108 mmol/L [facility] POTASSIUM 3.6 3.3 - 5.1 mmol/L [facility] CO2 28 21 - 35 mmol/L [facility] BUN 14 6 - 19 mg/dL [facility] CREATININE 1.10 0.5 - 1.5 mg/dL [facility] GLUCOSE 112(H) 70 - 99 mg/dL [facility] CALCIUM 8.8 8.4 - 10.3 mg/dL [facility] EGFR 55(L) >59 mL/min/1.7 3m2 [facility] Comment:Estimated glomerular filtration rate calculated using the CKD-EPI refit equation. ANION GAP 12 10 - 20 mmol/L [facility] Blood 04/26/2025 6:33 AM EDT 04/26/2025 6:43 AM EDT us Juan Bojorquez PA-C LAB BLOOD ORDERABLES Candace morris Result [facility] [address] [place], [place] [id number] * XR KNEE 1-2 VIEWS (RIGHT) (04/24/2025 11:12 AM EDT) Anatomical Region Laterality Modality Knee Right Computed Radiogr aphy 04/24/2025 11:1 4 AM EDT Impressions 04/24/2025 11:15 AM EDT S/P right TKR. On these postoperative portable views, all hardware components appear to be intact and well-positioned. Narrative 04/24/2025 11:15 AM EDT XR KNEE 1-2 VIEWS (RIGHT) Referring clinician's provided indication for this examination in Epic: Knee replacement, asymptomatic, follow up COMPARISON: XR KNEE 3 VIEW (RIGHT) Procedure Note Viktor Santos MD - 04/24/2025 XR KNEE 1-2 VIEWS (RIGHT) Referring clinician's provided indication for this examination in Epic:Knee replacement, asymptomatic, follow up COMPARISON: XR KNEE 3 VIEW (RIGHT) IMPRESSION: S/P right TKR. On these postoperative portable views, all hardwarecomponents appear to be intact and well-positioned. us Juan Bojorquez PA-C IMG XR LOWER EXTREMITY Fi nal Result * (ABNORMAL) POCT Glucose (04/24/2025 10:23 AM EDT) Only the most recent of2 resultswithin the time period is included. Glucose, POCT 104(H) 70 - 100 mg/dL [facility] 04/24/2025 10:2 3 AM EDT 04/24/2025 11:10 AM EDT us Michael Holland MD POINT OF CARE TEST ORDERABLE S Final Result Performing Organization Address City/State/[facility] Co de Phone Number [address] [address] * Spinal (04/24/2025 7:36 AM EDT) Narrative Marcos Dunlap CRNA - 04/24/2025 7:36 AM EDT Marcos Dunlap CRNA 04/24/2025 3:20 PM Spinal Placement Procedure Note: Start time: 04/24/2025 7:36 AM Performed by: fellow/resident/INFANTRY [employer] Anesthesiologist: Davide Andino Jr., DO Fellow/Resident/INFANTRY [employer]MEMBER: Marcos Dunlap CRNA [place] Protocol performed: consent obtained, patient identified with 2 identifiers, correct procedure verified, correct site and laterality confirmed, verified equipment, coagulation status reviewed and implant history reviewed. Procedure details: Patient position: sitting Prep: chloraprep Approach: midline Location: L3-4 Needle: Needle type: Quincke Needle gauge: 22 Needle length: standard CSF was aspirated Outcome: Blood aspirated? no Paresthesia: no Notes: Difficult spinal but patient cooperative. us Davide Andino Jr., CO ANESTHESIA Final R esult * CO ANESTHESIA PERIPHERAL BLOCK PLACEHOLDER, ANES INJ,ANES AGENT,FEMORAL NERVE,SINGLE PERF (04/24/2025 7:23 AM EDT) Narrative Davide Andino Jr., DO - 04/24/2025 7:23 AM EDT Davide Andino Jr., 04/24/2025 7:51 AM Peripheral Block Placement Procedure Note: Start Time: 04/24/2025 7:23 AM Stop Time:04/24/2025 7:33 AM Reason for block: procedure for pain, surgeon request, at patient's request and post op pain managment Block performed by: anesthesiologist Anesthesiologist: Davide Andino Jr., DO [place] Protocol Performed: consent obtained, patient identified with 2 identifiers, correct procedure verified, correct site and laterality confirmed, verified equipment, coagulation status reviewed and implant history reviewed. Procedure Details: Block type: single shot Laterality: right Block location: lower extremity and femoral nerve Patient position: supine Prep: chloraprep Image guidance: ultrasound guidance Block Technique Block technique: landmark technique and ultrasound guided non-stimulating needle used Needle gauge: 22 Injection assessment:negative aspiration for heme and no paresthesia on injection Paresthesia: none Needle length: 5cm Post Block Placement Assessment Complications Observed: No Davide Andino Jr., CO ANESTHESIA Final R esult * Type and Screen (ABO,Rh,Antibody Screen) (04/24/2025 7:13 AM EDT) ABO/Rh A Negative [facility] Antibody Screen Negative [facility] Expiration Date of Sample 04/27/2025,2 359 [facility] Resulting Agency [facility] Blood 04/24/2025 7:13 AM EDT 04/24/2025 7:15 AM EDT Michael Holland MD BLOOD BANK TEST ORDERABLES F inal Result [facility] [address] [place] [address] * XR KNEE 3 VIEW (RIGHT) (04/02/2025 10:12 AM EDT) Narrative SYSTEMGENERATED, DOCUMENTATION - 04/02/2025 10:13 AM EDT This image report has been auto-finalized and has not been read by a Radiologist. Interpretation has been included in the provider encounter note for this date of service. us Juan Bojorquez PA-C IMG XR LOWER EXTREMITY Fi nal Result * (ABNORMAL) Staphylococcus aureus (MRSA/MSSA) PCR, Preoperative (04/02/2025 9:01 AM EDT) MRSA PCR SCREEN Negative Negative [facility] Staph Aureus PCR Screen Positive(A) Negative [facility] Comment:The Xpert MRSA Assay is intended to aid in the prevention and control of MRSA infections in healthcare settings. The assay is not intended to diagnose nor to guide or monitor treatment for MRSA infections. Other (Nasal) 04/02/2025 9:0 1 AM EDT 04/02/2025 4:01 PM EDT us Juan Bojorquez PA-C NON CULTURE MICROBIOLOGY Final Result [facility] [address] [place], [place] [phone] from Last 3 Months Insurance MEDICARE PART A & B [employer] [facility] MEDICARE SUPPLEMENT MEDICARE PART A & [place] [address] [place] [facility] [place]: [address] [phone] MEDICARE PART A & B MEDICARE PART A & B MEDICARE PART A & B [facility] MEDICARE SUPPLEMENT MEDICARE PART A & B MEDICARE PART A & B [place]IC[place] [facility] [place]: [address] [phone] MEDICARE PART A & B FOR LIFE MEDICARE [place]PPLEMENT [facility] [place]: [address] [place] [phone] MEDICARE PART A & B FOR LIFE [place] [facility] [place] Address: [address] [phone] Advance Directives For more information, please contact: [phone] (9AM - 5PM [facility], Tuesday-Tuesday) * Full Code (Latest Code Status on File) Date Activated Date Inactivated Comments 04/24/2025 6:07 AM Question Answer Comments Code Status Confirmed With: Patient * Full Code (Presumed) Date Activated Date Inactivated Comments 09/14/2018 11:41 AM 09/15/2018 4:14 AM Care Teams Incident Coordinator Relationship Specialty Start [place] [address] [place] [address] [place] [address] PCP - General Nurse Practitioner 03/14/23 Naomy Ornelas MD [facility] [place] [id number] Insurance Assigned Provider Internal Medicine 03/16/23 Additional Source Comments The information contained in this document represents components of the legal health record. It is not the complete legal health record.[facility]
== END 2025-05-16 11:12 | disposition home or self-care (01) ==
PROVIDERS: PCP Nurse Practitioner Family; Visit Provider Nurse Practitioner Family
DX: E78.5 Hyperlipidemia, unspecified (principal); I10 Essential (primary) hypertension; Z96.651 Presence of right artificial knee joint

== ENCOUNTER → 2025-05-16 10:10 | Outpatient (BNVA) | payer MEDICARE, OTHER, SELFPAY | PROVIDERS: PCP Nurse Practitioner Family; Visit Provider Nurse Practitioner Family | DX: E78.5 Hyperlipidemia, unspecified (principal); I10 Essential (primary) hypertension; Z96.651 Presence of right artificial knee joint | CPT/HCPCS: 96127; 99212 ==

== ENCOUNTER 2025-06-13 06:10 | Outpatient (REF) | payer MEDICARE, OTHER, SELFPAY ==
--- OUTSIDE RECORDS SUMMARY | 2024-10-25 10:30 | XMS_ITS ---
Author Organization [facility] Address [address] [place] [address] Care Team Providers Care Rail Assembler Name Role Phone Marcos Samuels Primary Care Provider Unav ailable Susanne Garrison Unavailable [phone] REASON FOR VISIT X CHG Encounters Encounter Location Date Provider Diagnosis [facility] [address] [place] [address] 10/25/2024 Susanne Garrison Plan Of Treatment No Information Progress Notes * Radha JEAN LDOB: (65 yo F)Acc No.[id number]:10/25/2024 Progress Note Patient: Radha SABILLON Provider: Wilmar Garrison DPM :1960 A ge:64 Y S ex:Female Date:10/25/2024 Address:[address] [place], [place] [id number] Pcp:JOSELO Cruz Subjective: * Chief Complaints: * [...] 10/25/2024 Generated for Printi ng/Faxing/eTransmitting on: 0 06/13/2025 07:12 AM EDT
--- OUTSIDE RECORDS SUMMARY | 2025-06-11 08:00 | XMS_ITS | Encounter Summary ---
Author Organization Formerly [facility] Address [address] [place] [address] Phone Care Team Providers Care Entertainment Usher Name Role Phone Marcos Rocha OIL HEATER OPERATOR Primary Care Provider + Naomy Ornelas MD Unavailable + [phone] Reason for Visit * Physical Therapy (Within 2 weeks) - Authorized Specialty Diagnoses / Procedures Referred By Bi hou Referred To Contact Physical Therapy Diagnoses right TKA revision, patellectomy Juan Bojorquez PA-C [address] [facility] [place] [address] Phone: tel: fax: [email or web address] [facility] [address] [place] [address] Phone: tel: Referral ID Status Reason Start Date Expiration Date V isits Requested Visits Authorized [id number] Authorized 04/02/2025 04/02/2026 99 99 Encounter Details Date Type Department Care Team (Latest Contact Info) Description 06/11/2025 8:00 AM EDT Office Visit [facility] [address] [place] [address] [phone] Juan Bojorquez PA-C [address] [place] [address] [facility] [place], [place] [phone] [email or web address] Klaus Puente, PT [address] [place] [address] [email or web address] Acute postoperative pain of right knee (Primary Dx) Social History Tobacco Use Types Packs/Day Years Used Date Smoking Tobacco: Former Cigarettes 0.3 15 1 9 - 1993 Smokeless Tobacco: Never Comments:1 PPW Alcohol Use Standard Drinks/Week Comments No 0 (1 standard drink = 0.6 oz pur e alcohol) Home Health Assessment: Transportation Answer Date Recorded Lack of Transportation (Medical) No 05/27/2025 Lack of Transportation (Non-Medical) No 05/27/2025 Patient Unable or Declines to Respond No 05/27/2025 Education Answer Date Recorded Are you interested [...] on file Sexual Orientation Not on file documented as of this encounter Progress Notes * ChasemariiaKlaus lowry David, PT - 06/11/2025 8:00 AM EDT Physical Therapy Treatment Note Patient Name: Radha Jean Date of : 1960 This patient has attended 4 visits since the onset Physical Therapy. Referring MD: Juan Bojorquez PA-C [address] [place] [address] [facility], [place] [address] Diagnosis: Acute postoperative pain of right knee [G89.18, M25.561] 65 y/o F with hx of L TKA in 2010 and R [place] [address] Bustillos. The pt's patella fractured about 5 month after surgery, underwent an ORIF, and again sustained another patella fx about 4 months later. The pt underwent a revision of the R TKA and patellectomy by Dr. Holland on 04/24/25 Precautions: per TKA protocol R patellectomy Asthma Subjective comments: Lower back is still bothersome. Doing the exercises Followed up with ortho last week, cleared to use the pool and return to driving. Was able to go to an empty lot last week and test driving a bit, but doesn't feel comfortable enough to go on roads yet. Pain comments pre-treatment: R knee: not bad Objective Measures: KNEE: Ext-Flex LEFT (??) RIGHT (??) AROM 0-140 0-130 PROM 0-140 0-130 Interventions: See encounter report for minutes associated with each intervention. Warm Up: [x] Scifit, seat 13, no UE, resistance 3 x 7' Manual: [x] STM to L piriformis in SL Therex: [] QS 5 x 10- seated [] SLR x 10- seated [] Bridge x 10 [] Standing hip abd x 10 [] Marching at counter x 10 [] LAQ x 10 [] Step ups 4 x 10 [] SLS x 5 , x 3 [x] Anterior step up R, posterior step down L: 6'' box x10 with LUE support Gait: [x] Amb with single-point cane [x] Posterior stepping x20 feet [x] Lateral stepping 2x20 feet [x] Anterior oumar stepping 6'' hurdles (alternating - with unilateral UE support) [x] Lateral steppin'' hurdles 6x4 Home Exercise Program: Access Code: [email or web address] URL: [email or web address] Date: 06/04/2025 Prepared by: Andreina Naranjo Exercises - Supine Quadricep Sets - 2 x daily - 7 x weekly - 2 sets - 10 reps - 3 second hold - Bilateral Short Arc Quad Set - 2 x daily - 7 x weekly - 2 sets - 10 reps - 3sec hold - Active Straight Leg Raise with Quad Set - 2 x daily - 7 x weekly - 3 sets - 10 reps - Standing Heel Raise with Support - 2 x daily - 7 x weekly - 2 sets - 10 reps - Standing Hip Abduction with Counter Support - 2 x daily - 7 x weekly - 2 sets - 10 reps - Standing March with Counter Support - 2 x daily - 7 x weekly - 2 sets - 10 reps - Supine Bridge - 1 x daily - 7 x weekly - 2 sets - 10 reps Assessment: Progressed dynamic balance work today with good tolerance. Increased height of step ups with good tolerance. Plan: Frequency and Duration: Patient will be seen 2 times per week for 6 weeks. Treatment will include: - Therapeutic exercise: AROM, strengthening - Neuro Re-ed: balance/proprioceptive control - Functional mobility training: gait, stairs, transfers - Pt education and activity modification - HEP - Cryotherapy: game ready ice and compression Klaus [place], [place] [id number] documented in this encounter Plan of Treatment Upcoming Encounters Date Type Department Care Team (Late st Contact Info) Description 06/14/2025 8:15 AM EDT Office Visit [address] [address] Juan Bojorquez PA-C 4 [place] [address] Klaus King, PT [address] [place] [address] 06/18/2025 8:15 AM EDT Office Visit [address] [address] Juan Bojorquez PA-C [address] [place] [phone] Andreina Naranjo PTA [address] [place] [address] 06/21/2025 8:15 AM EDT Office Visit [address] [address] Juan Bojorquez PA-C [address] [place] [phone] Klaus King, PT [address] [place] [address] 07/04/2025 10:15 AM EDT Office Visit [address] [address] Juan Bojorquez PA-C [address] [place] [phone] Klaus King, PT [address] [place], [place] [phone] 07/08/2025 9:15 AM EDT Office Visit [address] [phone] Juan Bojorquez PA-C [address] [place] [address] [facility], [place] [address] Klaus King, PT [address] [place], [place] [phone] 07/10/2025 9:45 AM EDT Office Visit [address] [phone] Juan Bojorquez PA-C [address] [place] [address] [facility], [place] [address] Andreina Naranjo, ARBOREAL SCIENTIST [address] [place] [id number] 08/08/2025 8:30 AM EST Office Visit [facility] [address] [place] [address] [phone] Michael Holland MD [address] [place] [address] [facility], [place], [place] [phone] documented as of this encounter Visit Diagnoses Diagnosis Acute postoperative pain of right knee- Primary documented in this encounter Care Teams Entertainment Usher Relationship Specialty Start Date End Date Marcos Rocha NP [address] [facility] [place] [address] PCP - General Nurse Practitioner 03/14/23 Naomy Ornelas MD [address] [place] [id number] Insurance Assigned Provider Internal Medicine 03/16/23 documented as of this encounter Additional Source Comments The information contained in this document represents components of the legal health record. It is not the complete legal health record.[facility]
--- OUTSIDE RECORDS SUMMARY | 2025-06-13 07:12 | XMS_ITS | Clinical Summary ---
Author Organization [facility] Address [address] [place] [address] Phone Care Team Providers Care Bunch Maker Name Role Phone Marcos Rocha NP Primary Care Provider + Naomy Ornelas MD Unavailable Allergies Active Allergy Reactions Criticality Noted Date [...] FOR MIGRAINE HEADACHE FOR 10 DAYS. 07/11/20 Active estradioL (VAGIFEM) 10 mcg Tab 11/05/19 Active SENNA 8.6 mg tablet TAKE TWO TABLETS BY MOUTH AT BEDTIME FOR CONSTIPATION 02/08/20 Active cyclobenzaprine (FLEXERIL) 10 MG tablet TAKE 1 TABLET BY MOUTH DAILY NEEDED FOR MUSCLE SPASM; DO NOT TAKE WITH TRAMADOL 02/20/20 Active acetaminophen (TYLENOL) 325 mg tablet Take 2 tablets (650 mg total) by mouth every 6 (six) hours. 100 tablet 04/26/20 Active aspirin 81 MG EC tablet Take 1 tablet (81 mg total) by mouth 2 (two) times a day for 55 doses. 55 tablet 04/26/20 Active ascorbic acid, vitamin C, (VITAMIN C) 500 MG tablet Take 500 mg by mouth daily. 04/27/20 Active antiox #8/om3/dha/epa/l ut/zeax (PRESERVISION AREDS 2, OMEGA-3, ORAL) Take 2 capsules by mouth daily. 04/27/20 25 Active Lactobacillus rhamnosus GG (CULTURELLE ORAL) Take 1 capsule by mouth daily. 04/27/20 25 Active oxyCODONE 5 MG immediate release tabletIndication s:History of revision of total replacement of right knee joint,Post-op pain Take 1 tablet (5 mg total) by mouth daily as needed for pain (specific location in comments) (right knee). Partial fill ok 15 tablet 05/21/20 25 Active celecoxib (CELEBREX) 100 MG capsule Take 1 capsule (100 mg total) by mouth 2 (two) times a day. 60 capsule 05/27/20 25 Active celecoxib (CELEBREX) 100 MG capsule Take 1 capsule (100 mg total) by mouth 2 (two) times a day. 60 capsule 04/26/20 25 025 Discontin ued(Reord er) oxyCODONE 5 MG immediate release tabletIndication s:History of revision of total replacement of right knee joint,Post-op pain Take 1 tablet (5 mg total) by mouth every 6 (six) hours as needed for pain (specific location in comments) (right knee). 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 04/24/2025 Mild intermittent asthma without complication Pre-op evaluation 02/13/2025 Primary hypertension 02/13/2025 Primary osteoarthritis involving multiple joints 02/13/2025 History of total right knee replacement 11/08/19 25 Avascular necrosis of right patella 11/08/2024 Trochanteric bursitis of both hips 07/05/2018 Trochanteric bursitis of left hip 07/05/2018 Bilateral hip pain 06/12/2018 Resolved Problems Problem Noted Date Diagnosed Date Resolved Date Closed right hip fracture, initial encounter 04/26/2025 Encounters Date Type Department Care Team Description 06/11/2025 8:00 AM EDT Office Visit [facility] [address] [place] [address] Juan Bojorquez, Klaus Lee, PT Acute postoperative pain of right knee (Primary Dx) 06/06/2025 9:30 AM EDT Office Visit [facility] [address] [place] [address] Juan Bojorquez PA-C Aftercare following joint replacement surgery (Primary Dx) 06/06/2025 9:29 AM EDT - 06/06/2025 11:59 PM EDT Hospital Encounter [address] [address] Juan Bojorquez PA-C Discharge Disposition: Home or Self Care 06/06/2025 8:15 AM EDT Office Visit [address] [address] Juan Bojorquez PA-C Palermo, Christine, INDUSTRIAL REAL ESTATE AGENT Acute postoperative pain of right knee (Primary Dx) 06/04/2025 8:15 AM EDT Office Visit [address] [address] Juan Bojorquez PA-C Palermo, Christine, INDUSTRIAL REAL ESTATE AGENT Acute postoperative pain of right knee (Primary Dx) 05/30/2025 Plan of Care Documentation [address] [address] 05/28/2025 8:00 AM EDT Office Visit [address] [address] Juan Bojorquez PA-C Jarjoura, Nicholas James, PT Acute postoperative pain of right knee (Primary Dx) 05/27/2025 11:00 AM EDT Home Care Visit [facility] [address] [place] [phone] Samina Francis, PT PT OASIS DISCHARGE VISIT 05/24/2025 12:00 PM EDT Home Care Visit [facility] [address] [place] [phone] Samina Francis, PT PT HOME VISIT 05/21/2025 12:00 PM EDT Home Care Visit [facility] [address] [place] [phone] Samina Francis, PT PT HOME VISIT 05/17/2025 11:30 AM EDT [facility] [address] [place] [address] Samina Francis, PT PT HOME VISIT 05/13/2025 1:00 PM EDT Home [facility] Visit [facility] [address] [place] [address] Samina Francis, PT PT HOME VISIT 05/10/2025 12:00 PM EDT Home Care Visit [facility] [address] [place] [address] Samina Francis, PT PT HOME VISIT 05/09/2025 9:00 AM EDT Office Visit [facility] [address] [place] [address] Juan Bojorquez, PACharissaC 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) 05/08/2025 1:00 PM EDT Home Care Visit [facility] [address] [place] [address] Samina Francis, PT PT HOME VISIT 05/06/2025 10:00 AM EDT Home Care Visit [facility] [address] [place] [address] Samina Francis, PT PT HOME VISIT 05/03/2025 12:00 PM EDT Home Care Visit [facility] [address] [place] [address] Samina Francis, PT PT HOME VISIT 05/01/2025 11:30 AM EDT Home Care Visit [facility] [address] [place] [address] Samina Francis, PT PT HOME VISIT 04/29/2025 12:30 PM EDT Home Care Visit [facility] [address] [place] [address] Samina Francis, PT PT HOME VISIT 04/27/2025 11:00 AM EDT Home Care Visit [facility] [address] [place] [phone] Radha Erwin, PT PT OASIS START OF CARE (SOC) 04/27/2025 Plan of Care Documentation [facility] [address] [place] [phone] 04/24/2025 7:30 AM EDT - 04/24/2025 11:46 AM EDT Surgery OR Admitting Dept - Virtual Department [address] [place] [address] Michael Holland MD REVISION ARTHROPLASTY TOTAL KNEE 04/24/2025 7:23 AM EDT Anesthesia Event OR Admitting Dept - Virtual Department [address] [place] [address] Davide Andino Jr., DO 04/24/2025 6:00 AM EDT - 04/26/2025 12:05 PM EDT Hospital Encounter [facility] [address] [address] Michael Holland MD Discharge Disposition: Home-Health Care [facility] 04/24/2025 Procedure Pass OR Admitting Dept - Virtual Department [address] [place] [address] 04/23/2025 8:00 AM EDT Pre-Admission Testing Pre Procedure Evaluation [address] [place] [address] Michael Holland MD 04/03/2025 Orders Only [facility] [address] [place] [address] Juan Bojorquez PA-C 04/02/2025 9:59 AM EDT - 04/02/2025 11:59 PM EDT Hospital Encounter [address] [address] Juan Bojorquez PA-Wilmar Discharge Disposition: Home or Self Care 04/02/2025 9:00 AM EDT Office Visit [facility] [address] [place] [address] Juan Bojorquez PA-C Pre-op exam (Primary Dx); History of revision of total replacement of right knee joint 04/02/[address] [facility] [address] [place] [address] Homehealth, Interface ProviderMD from Last 3 Months Family History * Patient is adopted Relation Status Comments Father Mother Social History Tobacco Use Types Packs/Day Years Used Date Smoking Tobacco: Former Cigarettes 0.3 15 1 979 - 1993 Smokeless Tobacco: Never Tobacco Cessation:Counseling Given: Not [...] Sign Reading Time Taken Comments Blood Pressure 122/64 05/24/2025 12:00 PM EDT Pulse 68 05/24/2025 12:00 PM EDT Temperature 36.7 C (98 F) 05/24/2025 12:00 PM EDT Respiratory Rate 16 05/24/2025 12:00 PM EDT Oxygen Saturation 96% 05/24/2025 12:00 PM EDT Inhaled Oxygen Concentration - - Weight 86.7 kg (191 lb 3.2 oz) 04/24/2025 6:30 A M EDT Height 160 cm (5' 3 ) 04/24/2025 6:30 AM EDT Body Mass Index 33.87 04/24/2025 6:30 AM EDT Plan of Treatment Upcoming Encounters Date Type Department Care Team (Late st Contact Info) Description 06/14/2025 8:15 AM EDT Office Visit [facility] [address] [place] [address] [phone] Juan Bojorquez PA-C 4 [facility] [place], [place] [phone] Klaus King, PT [address] [place], [place] [phone] 06/18/2025 8:15 AM EDT Office Visit [address] [address] Juan Bojorquez PA-C [address] [place] [address], [place] [address] Andreina Naranjo, INDUSTRIAL REAL ESTATE AGENT [address] [place] [address] 06/21/2025 8:15 AM EDT Office Visit [address] [phone] Juan Bojorquez PA-C [address] [place] [address], [place] [address] Klaus King, PT [address] [place] [address] 07/04/2025 10:15 AM EDT Office Visit [address] [address] Juan Bojorquez PA-C [address] [place] [address], [place] [address] Kluas King, PT [address] [place] [address] 07/08/2025 9:15 AM EDT Office Visit [address] [phone] Juan Bojorquez PA-C [address] [place] [address], [place], [place] [phone] Klaus King, PT [address] [place], [place] [phone] 07/10/2025 9:45 AM EDT Office Visit [facility] [address] [place] [address] [phone] Juan Bojorquez PA-C [address] [place] [address] Orthopedics Sports [facility], [place], [place] [phone] Andreina Naranjo, INDUSTRIAL REAL ESTATE AGENT [address] [place] [address] [phone] 08/08/2025 8:30 AM EST Office Visit [facility] [address] [place] [address] [phone] Michael Holland MD [address] [place] [address] Orthopedics Sports [facility], [place], [place] [phone] Health Maintenance Due Date Last Done Comments [...] (ONE-TIME) 01/12/2024 Adult Td,Tdap Booster 05/07/2024 05/07/2014 INFLUENZA VACCINE (#1) 2025 , 10/06/2022, 08/05/2021, Additional history exists COVID-19 VACCINE ( season) 2025 10/06/2022, 08/05/2021, 12/24/2020, Additional history exists BLOOD PRESSURE 11/24/2025 05/24/2025 CREATININE LEVEL 04/26/2026 04/26/2025, , 01/28/2025 POTASSIUM [...] this topic Medical Devices Implanted Type Area Etl Manager Device Identifier Shelf Expiration Date Model / Serial / Lot Knee Insert Tibial Implant Bar Locking Modular 15b - [id number] Implanted:Qty: 1 on 04/24/2025 by Michael Holland MD at [facility] Right: Knee [employer] 08/22/2034 [id number] / / [id number] Bilateral Knee Replacements [place] Suture 4.5mm Arthroscopy Reelx Stt Peek Stainless Steel Core Knotless Sharp Tip Expandable Sterile Bx/5ea - [id number] Implanted:Qty: 2 on 09/14/2018 by Chema Blankenship DO at [facility] Right: Hip [employer] 05/07/2020 [id number] / / [id number] Knee Bearing 16x63 To 67mm Insert Vanguard Posterior Stabilized Plus Medial Lateral Anterior - [id number] Implanted:Qty: 1 on 04/24/2025 by Michael Holland MD at [facility] Right: Knee [employer] 03/19/2028 [id number] / / [id number] Procedures Procedure Name Priority Date/Time Associated Diagnosis Comments XR KNEE 3 VIEW (RIGHT) Routine 06/06/2025 9:36 AM EDT Aftercare following joint replacement surgery AMB REFERRAL TO [facility] PHYSICAL THERAPY Routine 05/30/2025 3:01 PM EDT CBC Routine 04/26/2025 6:33 AM EDT BASIC [...] NERVE,SINGLE PERF Routine 04/24/2025 7:23 AM EDT OR ANESTHESIA PERIPHERAL BLOCK PLACEHOLDER Routine 04/24/2025 7:23 AM EDT TYPE AND SCREEN (ABO,RH,ANTIBODY SCREEN) STAT 04/24/2025 7:13 AM EDT POCT GLUCOSE Routine 04/24/2025 6:24 AM EDT XR KNEE 3 VIEW (RIGHT) Routine 04/02/2025 10:12 AM EDT Pre-op exam MRSA/MSSA PRE-OP PCR Routine 04/02/2025 9:01 AM EDT Pre-op exam from Last 3 Months Results * XR KNEE 3 VIEW (RIGHT) (06/06/2025 9:36 AM EDT) Narrative SYSTEMGENERATED, DOCUMENTATION - 06/06/2025 9:36 AM EDT This image report has been auto-finalized and has not been read by a Radiologist. Interpretation has been included in the provider encounter note for this date of service. us Juan Bojorquez PA-C IMG XR LOWER EXTREMITY Fi nal Result * Ambulatory referral to [facility] Physical Therapy (05/30/2025 3:01 PM EDT) Other us Juan Bojorquez PA-C AMB [facility] REFERRALS Final R esult * (ABNORMAL) CBC (04/26/2025 6:33 AM EDT) Only the most recent of2 resultswithin the time period is included. WBC 6.93 4.00 - 11.00 K/uL [facility] RBC 4.01 4.00 - 5.20 M/uL [facility] HGB 11.1(L) 12.0 - 16.0 g/dL [facility] HCT 34.3(L) 36.0 - 46.0 % [facility] PLT 245 150 - 450 K/uL [facility] MCV 85.5 80.0 - 100.0 fL [facility] MCH 27.7 27.0 - 31.0 pg [facility] MCHC 32.4 32.0 - 36.0 g/dL [facility] RDW 13.1 11.5 - 14.5 % [facility] MPV 8.8 8.4 - 12.0 fL [facility] NRBC 0.00 0.00 /100 WBCs [facility] ABSOLUTE NRBC 0.00 0.00 K/uL [facility] Blood 04/26/2025 6:33 AM EDT 04/26/2025 6:43 AM EDT us Juan Bojorquez PA-C LAB BLOOD ORDERABLES Candace l Result [address] [address] * (ABNORMAL) Basic metabolic panel (04/26/2025 6:33 AM EDT) Only the most recent of2 resultswithin the time period is included. SODIUM 136 133 - 146 mmol/L [facility] CHLORIDE 100 96 - 108 mmol/L [facility] POTASSIUM 3.6 3.3 - 5.1 mmol/L [facility] CO2 28 21 - 35 mmol/L [facility] BUN 14 6 - 19 mg/dL [facility] CREATININE 1.10 0.5 - 1.5 mg/dL [facility] GLUCOSE 112(H) 70 - 99 mg/dL [facility] CALCIUM 8.8 8.4 - 10.3 mg/dL [facility] EGFR 55(L) >59 mL/min/1.7 3m2 [facility] Comment:Estimated glomerular filtration rate calculated using the CKD-EPI refit equation. ANION GAP 12 10 - 20 mmol/L [facility] Blood 04/26/2025 6:33 AM EDT 04/26/2025 6:43 AM EDT us Juan Bojorquez PA-C LAB BLOOD ORDERABLES Candace morris Result [address] [address] * XR KNEE 1-2 VIEWS (RIGHT) (04/24/2025 [...] clinician's provided indication for this examination in [facility]:Knee replacement, asymptomatic, follow up COMPARISON: XR KNEE [...] Glucose, POCT 104(H) 70 - 100 mg/dL [facility] 04/24/2025 10:2 3 AM EDT 04/24/2025 11:10 AM EDT us Michael Holland MD POINT OF CARE TEST ORDERABLE S Final Result Performing Organization Address City/State/RUST Co de Phone Number [address] [address] * Spinal (04/24/2025 7:36 AM EDT) Narrative Marcos Dunlap CRNA - 04/24/2025 7:36 AM EDT Marcos Dunlap CRNA 04/24/2025 3:20 PM Spinal Placement Procedure Note: Start time: 04/24/2025 7:36 AM Performed by: fellow/resident/CREATIVE ASSISTANT Anesthesiologist: Davide Andino Jr., Fellow/Resident/CREATIVE ASSISTANT: Marcos Dunlap CRNA [place] Protocol performed: consent obtained, patient identified with [...] but patient cooperative. us Davide Andino Jr., DO OR ANESTHESIA Final R esult * OR ANESTHESIA PERIPHERAL BLOCK PLACEHOLDER, ANES INJ,ANES AGENT,FEMORAL NERVE,SINGLE PERF (04/24/2025 7:23 AM EDT) Narrative Davide Andino Jr., DO - 04/24/2025 7:23 AM EDT Davide Andino Jr., DO 04/24/2025 7:51 AM Peripheral Block Placement Procedure Note: Start Time: 04/24/2025 7:23 AM Stop Time:04/24/2025 7:33 AM Reason for block: procedure for pain, surgeon request, at patient's request and post op pain managment Block performed by: anesthesiologist Anesthesiologist: Davide Andino Jr., DO [place] Protocol Performed: consent obtained, patient identified with [...] Post Block Placement Assessment Complications Observed: No us Davide Andino Jr., DO OR ANESTHESIA Final R esult * Type and Screen (ABO,Rh,Antibody Screen) (04/24/2025 7:13 AM EDT) ABO/Rh A Negative [facility] Antibody Screen Negative [facility] Expiration Date of Sample 04/27/2025,2 359 [facility] Resulting Agency [facility] Blood 04/24/2025 7:13 AM EDT 04/24/2025 7:15 AM EDT Michael Holland MD BLOOD BANK TEST ORDERABLES F inal Result [address] [address] * XR KNEE 3 VIEW (RIGHT) (04/02/2025 [...] AM EDT) MRSA PCR SCREEN Negative Negative [facility] Staph Aureus PCR Screen Positive(A) Negative [facility] Comment:The Xpert MRSA Assay is intended to aid in the prevention and control of MRSA infections in healthcare settings. The assay is not intended to diagnose nor to guide or monitor treatment for MRSA infections. Other (Nasal) 04/02/2025 9:0 1 AM EDT 04/02/2025 4:01 PM EDT us Juan Bojorquez PA-C NON CULTURE MICROBIOLOGY Final Result [facility] [address] [place] [address] from Last 3 Months Insurance MEDICARE PART A & B [facility] MEDICARE SUPPLEMENT MEDICARE PART A & B FOR LIFE MEDICARE SUPPLEMENT MEDICARE PART A & B MEDICARE PART A & B MEDICARE PART A & B MEDICARE SUPPLEMENT MEDICARE PART A & B MEDICARE PART A & B FOR LIFE MEDICARE SUPPLEMENT MEDICARE PART A & B FOR LIFE MEDICARE SUPPLEMENT MEDICARE PART A & B FOR LIFE MEDICARE SUPPLEMENT Advance Directives For more information, please contact: [phone] (9AM - 5PM [facility], Tuesday-Tuesday) * Full Code (Latest Code Status on File) Date Activated Date Inactivated Comments 04/24/2025 6:07 AM Question Answer Comments Code Status Confirmed With: Patient * Full Code (Presumed) Date Activated Date Inactivated Comments 09/14/2018 11:41 AM 09/15/2018 4:14 AM Care Teams Bunch Maker Relationship Specialty Start Date End Date Marcos Rocha NP [address] [facility] [place] [address] PCP - General Nurse Practitioner 03/14/23 Naomy Ornelas MD [address] [facility] [place] [address] Insurance Assigned Provider Internal Medicine 03/16/23 Additional Source Comments The information contained in this document represents components of the legal health record. It is not the complete legal health record.[facility]
--- OUTSIDE RECORDS SUMMARY | 2025-06-13 07:12 | XMS_ITS | Encounter Summary ---
Author Organization Located Within [facility] Address [address] [place] [address] Phone Care Team Providers Care Rail Technician Name Role Phone Kelsea De Luna DOG SHOW JUDGE Primary Care Provider [phone] Silas Weathers MD Primary Care Provider [phone] Marcos Rocha NP Primary Care Provider + Naomy Ornelas MD Unavailable Encounter Details Date Type Department Care Team (Late Contact Info) Description 06/14/2018 Procedure Pass [address] [place] [address] Social History Tobacco Use Types Packs/Day Years Used Date Smoking Tobacco: Former Cigarettes 0.3 15 1 979 - 1994 Smokeless Tobacco: Never Comments:1 PPW Alcohol Use Standard Drinks/Week Comments No 0 (1 standard drink = 0.6 oz pur e alcohol) Comments Unknown Sex and Gender Information Value Date Recorded Sex Assigned at Not on file Legal Sex Female 9:50 PM EDT Gender Identity Not on file Sexual Orientation Not on file documented as of this encounter Plan of Treatment Upcoming Encounters Date Type Department Care Team (Late Contact Info) Description 06/14/2025 8:15 AM EDT Office Visit [facility] [address] [place] [address] [phone] Juan Bojorquez, DAVID [address] [place] [address] Orthopedics & Sports Medicine, [facility]. [place], [place] [phone] [email or web address] Klaus King, PT [address] [place] [address] 06/18/2025 8:15 AM EDT Office Visit [address] [address] Juan Bojorquez PA-C 4 [facility], [place] [address] [email or web address] Andreina Naranjo, LAY OUT MAKER [address] [place] [address] 06/21/2025 8:15 AM EDT Office Visit [address] [address] Juan Bojorquez PA-C [address] [place] [address], [place] [address] [email or web address] Klaus King, PT [address] [place] [address] [email or web address] 07/04/2025 10:15 AM EDT Office Visit [address] [address] Juan Bojorquez PA-C [address] [place] [address], [place] [address] [email or web address] Klaus King, PT [address] [place] [address] 07/08/2025 9:15 AM EDT Office Visit [address] [address] Juan Bojorquez PA-C [address] [place] [address] [place] [address] [email or web address] Klaus King, PT [address] [place] [address] 07/10/2025 9:45 AM EDT Office Visit [facility] [address] [place] [address] Juan Bojorquez PA-C 4 [facility] Orthopedicssm health care Sports [facility], [place] [address] [email or web address] Andreina Naranjo PTA [address] [place] [address] [email or web address] 08/08/2025 8:30 AM EST Office Visit [facility] Orthopedics & Sports Medicine [address] [place] [address] Michael Holland MD [address] [place] [address], [place], [place] [phone] [email or web address] documented as of this encounter Visit Diagnoses Not on filedocumented in this encounter Care Teams Rail Technician Relationship Specialty Start Date End Date Kelsea De Luna NP [address] [place] [address] Dr [place] [phone] [email or web address] PCP - General 07/21/17 06/26/18 Silas Weathers MD [address] [place] [address] [place] [address] PCP - General Internal Medicine 06/27/18 03/13/23 Marcos Rocha NP [address] [place] [address] [place] [address] PCP - General Nurse Practitioner 03/14/23 Naomy Ornelas MD [address] [place] [address] [place] [phone] Insurance Assigned Provider Internal Medicine 03/16/23 documented as of this encounter Additional Source Comments The information contained in this document represents components of the legal health record. It is not the complete legal health record.Located [facility]
--- OUTSIDE RECORDS SUMMARY | 2025-06-13 07:12 | XMS_ITS | Encounter Summary ---
Author Organization [facility] Address [address] [place] [address] Phone Care Team Providers Care Dimensional Inspector Name Role Phone Marcos Rocha NP Primary Care Provider + Naomy Ornelas MD Unavailable [phone] Encounter Details Date Type Department Care Team (Latest Contact Info) Description 07/09/2024 Ancillary Orders [facility] Orthopedics & Sports Medicine [address] [place] [address] Sharath Zepeda PA-C [address] [place] [address] Orthopedics & Sports Medicine, [facility] [place] [address] [email or web address] Bilateral hip pain (Primary Dx); Bilateral knee pain Social History Tobacco Use Types Packs/Day Years Used Date Smoking Tobacco: Former Cigarettes 0.3 15 1 979 - 1993 Smokeless Tobacco: Never Comments:1 PPW Alcohol Use Standard Drinks/Week Comments No 0 (1 standard drink = 0.6 oz pur e alcohol) Education Answer Date Recorded Are you interested in more education? Not on ivett e 01/28/2023 Are you concerned about learning? Not on file 01/28/2023 No 01/28/2023 No 01/28/2023 Digital Access Answer Date Recorded No 02/28/2023 No 02/28/2023 Reliable internet access at home? Not on file 02/28/2023 Device with a working camera? Not on file Comments Unknown Sex and Gender Information Value Date Recorded Sex Assigned at Not on file Legal Sex Female 9:50 PM EDT Gender Identity Not on file Sexual Orientation Not on file documented as of this encounter Plan of Treatment Upcoming Encounters Date Type Department Care Team (Late st Contact Info) Description 06/14/2025 8:15 AM EDT Office Visit [address] [address] Juan Bojorquez PA-C 4 [facility] Sports [facility], [place] [address] [email or web address] Klaus King, PT 4 [place] [address] [email or web address] 06/18/2025 8:15 AM EDT Office Visit [address] [address] Juan Bojorquez PA-C [address] [place] [address] Sports [facility], [place] [address] [email or web address] Andreina Naranjo PTA 4 [place] [address] [email or web address] 06/21/2025 8:15 AM EDT Office Visit [address] [address] Juan Bojorquez PA-C [address] [place] [address] Sports [facility], [place] [address] [email or web address] Klaus King, PT 4 [place] [address] [email or web address] 07/04/2025 10:15 AM EDT Office Visit [address] [address] Juan Bojorquez PA-C [address] [place] [address], [place] [address] Klaus King, PT 4 [place] [address] 07/08/2025 9:15 AM EDT Office Visit [address] [phone] Juan Bojroquez PA-C [address] [place] [address] [facility], [place] [address] Klaus King, PT 4 [place] [address] 07/10/2025 9:45 AM EDT Office Visit [address] [address] Juan Bojorquez PA-C [address] [place] [address], [place], [place] [phone] Andreina Naranjo PTA [address] [place] [address] 08/08/2025 8:30 AM EST Office Visit [facility] Orthopedics & Sports Medicine [address] [place] [address] Michael Holland MD [address] [place] [address] Orthopedics Sports [facility], [place], [place] [phone] documented as of this encounter Results * XR KNEE 3 VIEW (RIGHT) (07/09/2024 9:05 AM EDT) Narrative SYSTEMGENERATED, DOCUMENTATION - 07/09/2024 9:05 AM EDT This image report has been auto-finalized and has not been read by a Radiologist. Interpretation has been included in the provider encounter note for this date of service. Sharath Zepeda PA-C IMG XR LOWER EXTREMITY Final Result documented in this encounter Visit Diagnoses Diagnosis Bilateral knee pain Pain in joint, lower leg Bilateral hip pain- Primary Pain in joint, pelvic region and thigh Bilateral knee pain Pain in joint, lower leg documented in this encounter Care Teams Dimensional Inspector Relationship Specialty Start Date End Date Marcos Rocha NP [facility] [place] [address] PCP - General Nurse Practitioner 03/14/23 Naomy Ornelas MD [address] [place] [address] [place] [address] Insurance Assigned Provider Internal Medicine 03/16/23 documented as of this encounter Additional Source Comments The information contained in this document represents components of the legal health record. It is not the complete legal health record.[facility]
--- OUTSIDE RECORDS SUMMARY | 2025-06-13 07:12 | XMS_ITS | Patient Health Record ---
Author Organization [facility] Address [address] [place] [address] Care Team Providers Care Research Physician Name Role Phone Marcos Samuels Primary Care Provider Susanne [place] Unavailable [phone] John Levine Unavailable [phone] Allergies Allergen (clinical drug ingredient) Drug/Non Drug [...] 100 MG 1 capsule Orally Once a day; Duration: 10 day(s) 07/13/2023 Not-Taking Cranberry Not-Taking Ammonium Lactate 12 % 1 application Externally to affected areas of dry skin to feet except for between the toes Twice a day; Duration: 30 days Active Amoxicillin 875 MG 1 tablet Orally Twice a day; Duration: 5 day(s) 09/21/2024 Active Vitamin D3 2000 UNIT 1 capsule Orally Once a day; Duration: 30 day(s) Active Vitamin C Active traMADol HCl 50 MG Orally A ctive Voltaren 1 % as directed Transdermal bid; Duration: 30 days 08/12/2014 Not-Taking Niacin Not-Taking Physical Therapy . . . 2-3x/week; Duration: 3-4 weeks 07/09/2019 Not-Taking Night Splint AFO - L1930 as directed 07/09/2019 Not-Taking Cyclobenzaprine HCl Not-Taking Colchicine Not-Takin g Allopurinol Not-Taki ng Provigil Not-Taking Gemfibrozil Not-Taki ng Lutein 40 MG 1 capsule with a meal Orally Once a day; Duration: 30 day(s) Active Levothyroxine Sodium 125 MCG 1 capsule Orally Once a day Active Gabapentin 600 MG 1 capsule Orally twice daily Active Cetirizine HCl Allergy med PRN Active Rosuvastatin Calcium 10 MG 1 tablet Orally Once a day; Duration: 30 day(s) Active Losartan Potassium 50 MG 1 tablet Orally Once a day; Duration: 30 day(s) Not-Taking PreserVision AREDS 2 - [...] Status Risk Notes Problem Acquired hallux valgus (85482793) Hallux valgus (acquired), left foot (M20.12) Active confirmed Problem Localized, primary osteoarthritis of the ankle and/or foot (874541951) Primary osteoarthrit is, right ankle and foot (M19.071) Active confirmed Problem Localized, primary osteoarthritis of the ankle and/or foot (927005535) Primary osteoarthrit is, left ankle and foot (M19.072) Active confirmed Problem Acquired hammer toe of right foot (1661742428143033) Other hammer toe(s) (acquired), right foot (M20.41) Active confirmed Problem Acquired hammer toe of left foot (7928990790756840) Other hammer toe(s) (acquired), left foot (M20.42) [...] Ordered Date Performed Result Body Sit e 50560-GVS 07/31/2024 N/A 91463-QIOIEAW SKIN/TISSUE 08/16/2024 N/A 96395-FXS 09/04/2024 N/A 52236-XQKOAXZ SKIN/TISSUE 09/20/2024 N/A Encounters Encounter Location Date Provider Diagnosis [address] [address] 06/25/2024 John Levine Ingrowing nail L60.0 ; Primary osteoarthritis, left ankle and foot M19.072 ; Primary osteoarthritis, right ankle and foot M19.071 ; Metatarsalgia, left foot M77.42 ; Metatarsalgia, right foot M77.41 ; Hallux valgus (acquired), left foot M20.12 ; Other hammer toe(s) (acquired), left foot M20.42 ; Other hammer toe(s) (acquired), right foot M20.41 and Tinea unguium B35.[address] [address] 07/31/2024 Susanne Garrison Ingrown nail L60.[address] [address] 08/16/2024 Susanne Garrison Xerosis of skin L85.3 and Skin ulcer of toe of left foot with fat layer exposed L97.522 [facility] [address] [address] 09/04/2024 Susanne Garrison Ingrown nail L60.[address] [address] 09/20/2024 Susanne Garrison Skin ulcer of toe of right foot with fat layer exposed L97.[address] [facility] [address] 10/25/2024 Susanne Garrison Ingrown toenail L60.[address] [address] 08/01/2024 Susanne Garrison [address] [address] 09/21/2024 Susanne Garrison [address] [address] 03/11/2025 Susanne Garrison Xerosis of skin L85.[address] [address] 04/17/2025 Susanne Garrison Assessments Encounter Date Diagnosis (ICD [...] X ray : Foot, right 3V 07/09/2019 12928-Eooh Destruction, 1-14 12/16/2014 86250-Gjhc Destruction, 1-14 01/16/2015 46501-VDF 07/31/2024 89341-PLB 09/04/2024 21135-PNTQIWK SKIN/TISSUE 09/20/2024 87994-ICYOEGW SKIN/TISSUE 08/16/2024 Insurance Providers Payer Name Payer Address Payer Phone Subscriber Number Group Number Insured Name Patient Relationship to Insured Coverage Start Date Coverage End Date Medicare National Govt Sv[employer] [address] [facility] [place] [address] [id number] Radha Jean Self - patient is the insured [employer] [address] [place] [address] [id number] Radha Jean Self - patient is the insured Medical (General) History Medical History History ICD Code Arthritis asthma Back,Hip,and Knee pain Broken bones Hyperlipidemia Depression Diverticulosis Fibromyalgia Hypercholesterolemia Gout Headaches Sinus conditions Thyroid disorder High blood pressure Osteoporosis Sciatica Measles Mumps Joint implants/screws Scoliosis Surgical History Surgery Date(Month/Year) right knee cap repair 2014 breast surgery 11/1998 hysterectomy 07/2008 cholecystectomy 11/1983 left knee replacement 2013 hip surgery-tendon jxmerm-pvlfxccxmj-rha an tibial band repair colonoscopy 12/2021
--- OUTSIDE RECORDS SUMMARY | 2025-06-13 07:12 | XMS_ITS | Encounter Summary ---
Author Organization [facility] Address [address] [place] [address] Phone Care Team Providers Care Public Relations Counselor Name Role Phone Silas Weathers MD Primary Care Provider [phone] Marcos Rocha NP Primary Care Provider + Naomy Ornelas MD Unavailable + [phone] Encounter Details Date Type Department Care Team (Late Contact Info) Description 09/14/2018 Procedure Pass OR Admitting Dept - Virtual Department 30 [place] [address] Social History Tobacco Use Types Packs/Day Years [...] Description 06/14/2025 8:15 AM EDT Office Visit [facility] [address] [place] [address] Juan Bojorquez PA-C [address] [place] [address] Orthopedics & Sports Medicine, [facility]. [place], [place] [phone] Klaus King, PT 4 [place] [address] [email or web address] 06/18/2025 8:15 AM EDT Office Visit [address] [address] Juan Bojorquez PA-C 4 [facility], [place] [address] [email or web address] Andreina Naranjo, RACING SECRETARY 4 [place] [address] [email or web address] 06/21/2025 8:15 AM EDT Office Visit [address] [address] Juan Bojorquez PA-C [address] [place] [address], [place] [address] [email or web address] Klaus King, PT 4 [place] [address] 07/04/2025 10:15 AM EDT Office Visit [address] [address] Juan Bojorquez PA-C [address] [place] [address], [place] [address] [email or web address] Klaus King, PT 4 [place] [address] 07/08/2025 9:15 AM EDT Office Visit [address] [address] Juan Bojorquez PA-C [address] [place] [address], [place] [address] Klaus King, PT 4 [place] [address] 07/10/2025 9:45 AM EDT Office Visit [facility] [address] [place] [address] Juan Bojorquez PA-C [address] [place] [address] Orthopedics Sports [facility], [place] [address] Andreina Naranjo PTA [address] [place] [address] 08/08/2025 8:30 AM EST Office Visit [facility] Orthopedics & Sports Medicine [address] [place] [address] [phone] Michael Holland MD [address] [place] [address] Orthopedics Sports [facility], [place], [place] [phone] documented as of this encounter Visit Diagnoses Not on filedocumented in this encounter Care Teams Public Relations Counselor Relationship Specialty Start Date End Date Silas Weathers MD [address] [place] [address] [place] [address] PCP - General Internal Medicine 06/27/18 03/13/23 Marcos Rocha NP [address] [facility] [place] [address] PCP - General Nurse Practitioner 03/14/23 Naomy Ornelas MD [address] [place] [address] [place] [address] Insurance Assigned Provider Internal Medicine 03/16/23 documented as of this encounter Additional Source Comments The information contained in this document represents components of the legal health record. It is not the complete legal health record.[facility]
--- OUTSIDE RECORDS SUMMARY | 2025-06-13 07:12 | XMS_ITS | Encounter Summary ---
Author Organization [facility] Address [address] [place] [address] Phone Care Team Providers Care Hand Cloth Cutter Name Role Phone Kelsea De Luna CHIEF GUARD Primary Care Provider [phone] Silas Weathers MD Primary Care Provider [phone] Marcos Rocha NP Primary Care Provider + Naomy Ornelas MD Unavailable Encounter Details Date Type Department Care Team (Late Contact Info) Description 06/14/2018 Procedure Pass [address] [place] [address] Social History Tobacco Use Types Packs/Day Years [...] Description 06/14/2025 8:15 AM EDT Office Visit [facility] Rehabilitation Services [address] [place] [address] [phone] Juan Bojorquez, DAVID [address] [place] [address] Orthopedics & Sports Medicine, [facility]. [place], [place] [phone] Klaus King, PT 4 [place] [address] 06/18/2025 8:15 AM EDT Office Visit [address] [address] Juan Bojorquez PA-C 4 [facility], [place] [address] Andreina Naranjo, FILM TECHNICIAN 4 [place] [address] 06/21/2025 8:15 AM EDT Office Visit [address] [address] Juan Bojorquez PA-C [address] [place] [place] [address], [place] [address] Klaus King, PT 4 [place] [address] 07/04/2025 10:15 AM EDT Office Visit [address] [address] Juan Bojorquez PA-C [address] [place] [place] [address], [place] [address] Klaus King, PT 4 [place] [address] 07/08/2025 9:15 AM EDT Office Visit [address] [address] Juan Bojorquez PA-C [address] [place] [address] [place] [address] [email or web address] Klaus King, PT 4 [place] [address] 07/10/2025 9:45 AM EDT Office Visit [facility] Rehabilitation Services [address] [place] [address] Juan Bojorquez PA-C 4 [facility] Sports [facility], [place] [address] [email or web address] Andreina Naranjo PTA [address] [place] [address] [email or web address] 08/08/2025 8:30 AM EST Office Visit [facility] Orthopedics & Sports Medicine [address] [place] [address] Michael Holland MD [address] [place] [address], [place], [place] [phone] [email or web address] documented as of this encounter Visit Diagnoses Not on filedocumented in this encounter Care Teams Hand Cloth Cutter Relationship Specialty Start Date End Date Kelsea De Luna NP [address] [place] [address] Dr [place] [phone] [email or web address] PCP - General 07/21/17 06/26/18 Silas Weathers MD [address] [place] [address] [place] [address] PCP - General Internal Medicine 06/27/18 03/13/23 Marcos Rocha NP [address] [place] [address] [place] [address] PCP - General Nurse Practitioner 03/14/23 Naomy Ornelas MD [address] [place] [address] [place] [address] Insurance Assigned Provider Internal Medicine 03/16/23 documented as of this encounter Additional Source Comments The information contained in this document represents components of the legal health record. It is not the complete legal health record.[facility]
--- OUTSIDE RECORDS SUMMARY | 2025-06-13 07:13 | XMS_ITS | Encounter Summary ---
Author Organization [facility] Address [address] [place] [address] Phone Care Team Providers Care Money Room Teller Name Role Phone Marcos Rocha HOSPITAL NURSING ASSISTANT Primary Care Provider + Naomy Ornelas MD Unavailable [phone] Encounter Details Date Type Department Care Team (Late st Contact Info) Description 04/24/2025 Procedure Pass OR Admitting Dept - Virtual Department 30 [place] [address] Social History Tobacco Use Types Packs/Day Years [...] your housing situation today? I have martha laird 04/24/2025 How many times have you move [...] on file documented as of this encounter Functional Status * Calculated C-SSRS Risk Score (Lifetime/Recent) Answer Date of Assessment Author No Risk Indicated 04/24/2025 1:00 PM EDT Maira Melendez, ROCÍO * [place] Suicide Severity Rating Scale (Screener/Recent Self-Report) Question Answer Date of Assessment Author 1. Wish to be (Past 1 Month) No 025 1:00 PM EDT Maira Melendez, RN 2. Non-Specific Active Suici uvaldo Thoughts (Past 1 Month) No 04/24/2025 1:00 PM EDT Maira Melendez , RN 6. Suicidal Behavior (Lifetime) No 1:00 PM EDT Maira Melendez RN documented as of this encounter Plan of Treatment Upcoming Encounters Date Type Department Care Team (Late st Contact Info) Description 06/14/2025 8:15 AM EDT Office Visit [address] [address] Juan Bojorquez PA-C 4 [facility], [place] [address] Klaus King, PT 4 [place] [address] 06/18/2025 8:15 AM EDT Office Visit [address] [address] Juan Bojorquez PA-C [address] [place] [address], [place] [address] Andreina Naranjo, SITE MONITOR 4 [place] [address] 06/21/2025 8:15 AM EDT Office Visit [address] [address] Juan Bojorquez PA-C [address] [place] [address], [place] [address] Klaus King, PT 4 [place] [address] 07/04/2025 10:15 AM EDT Office Visit [address] [phone] Juan Bojorquez PA-C [address] [place] [address], [place] [address] Klaus King, PT 4 [place] [address] 07/08/2025 9:15 AM EDT Office Visit [address] [address] Juan Bojorquez PA-C [address] [place] [address] [facility] Sports [facility], [place] [address] Klaus King, PT 4 [place] [address] 07/10/2025 9:45 AM EDT Office Visit [address] [address] Juan Bojorquez PA-C [address] [place] [address], [place] [address] Andreina Naranjo PTA [address] [place] [address] 08/08/2025 8:30 AM EST Office Visit [facility] Orthopedics & Sports Medicine [address] [place] [address] Michael Holland MD [address] [place] [address] Orthopedics Sports [facility], [place], [place] [phone] documented as of this encounter Visit Diagnoses Not on filedocumented in this encounter Care Teams Money Room Teller Relationship Specialty Start Date End Date Marcos Rocha NP [facility] [place] [address] PCP - General Nurse Practitioner 03/14/23 Naomy Ornelas MD [address] [place] [address] [place] [address] Insurance Assigned Provider Internal Medicine 03/16/23 documented as of this encounter Additional Source Comments The information contained in this document represents components of the legal health record. It is not the complete legal health record.[facility]
[2025-06-13 10:51] LABS: Appearance Urine Clear; Glucose Urine UA Negative (Negative); PH 6.5 (5.0-9.0); Specific Gravity - Urine <= 1.005 (1.005-1.025); UMIC TRIGGER UACC YES
== END 2025-06-13 06:11 | disposition home or self-care (01) ==
LOC: HO.HMGCLNP 06:10
PROVIDERS: PCP Nurse Practitioner Family; Visit Provider Nurse Practitioner Family
DX: R30.0 Dysuria (principal)
CPT/HCPCS: 81001; 87086; 87088; 87186

== ENCOUNTER 2025-07-02 07:43 | Outpatient (REF) | payer MEDICARE, OTHER, SELFPAY ==
--- OUTSIDE RECORDS SUMMARY | 2024-10-25 10:30 | XMS_ITS ---
Author Organization [facility] Address [address] [place] [address] Care Team Providers Care Emissions Testing And Repair Technician Name Role Phone Marcos Samuels Primary Care Provider Unav ailable Susanne Garrison Unavailable [phone] REASON FOR VISIT X CHG Encounters Encounter Location Date Provider Diagnosis [facility] [address] [place] [address] 10/25/2024 Susanne Garrison Plan Of Treatment No Information Progress Notes * Radha JEAN LDOB: (65 yo F)Acc No.[id number]:10/25/2024 Progress Note Patient: Radha SABILLON Provider: Wilmar Garrison DPM :1960 A ge:64 Y S ex:Female Date:10/25/2024 Address:[address] [place], [place] [id number] Pcp:JOSELO Cruz Subjective: * Chief Complaints: * [...] Garrison DPM Date: 0 10/25/2024 Generated for Printi ng/Faxing/eTransmitting on: 0 07/02/2025 07:53 AM EDT
--- OUTSIDE RECORDS SUMMARY | 2025-07-02 07:53 | XMS_ITS | Encounter Summary ---
Author Organization [facility] Address [address] [place] [address] Phone Care Team Providers Care Training Development Director Name Role Phone Kelsea De Luna CURTAIN FELLER BLINDSTITCH Primary Care Provider [phone] Silas Weathers MD Primary Care Provider [phone] Marcos Rocha NP Primary Care Provider + Naomy Ornelas MD Unavailable Encounter Details Date Type Department Care Team (Late Contact Info) Description 06/14/2018 Procedure Pass [address] [place] [address] Social History Tobacco Use Types Packs/Day Years [...] Department Care Team (Late Contact Info) Description 07/04/2025 10:15 AM EDT Office Visit [facility] Rehabilitation Services [address] [place] [address] Juan Bojorquez, DAVID [address] [place] [address] Orthopedics & Sports Medicine, [facility]. [place], [place] [phone] Klaus King, PT 4 [place] [address] 07/08/2025 9:15 AM EDT Office Visit [address] [address] Juan Bojorquez PA-C [address] [place] [address] Orthopedics Sports [facility], [place] [address] Klaus King, PT 4 [place] [address] 07/10/2025 9:45 AM EDT Office Visit [address] [address] Juan Bojorquez PA-C [address] [place], [place] [address]s Sports [facility], [place] [address] Andreina Naranjo PTA [address] [place] [address] 07/19/2025 3:15 PM EDT Office Visit [address] [address] Juan Bojorquez PA-C [address] [place] [address] Orthopedics Sports [facility], [place] [address] Klaus King, PT 4 [place] [address] 08/08/2025 8:30 AM EST Office Visit [facility] Orthopedics & Sports Medicine [address] [place] [address] Michael Holland MD [address] [place] [address] [facility] [place] [address] [email or web address] documented as of this encounter Visit Diagnoses Not on filedocumented in this encounter Care Teams Training Development Director Relationship Specialty Start Date End Date Kelsea De Luna NP [address] [place] [address] [place] [address] [email or web address] PCP - General 07/21/17 06/26/18 Silas Weathers MD [address] [place] [address] [place] [address] PCP - General Internal Medicine 06/27/18 03/13/23 Marcos Rocha NP [address] [place] [address] [place] [address] PCP - General Nurse Practitioner 03/14/23 Naomy Ornelas MD [address] [place] [address] [place] [address] Insurance Assigned Provider Internal Medicine 03/16/23 documented as of this encounter Additional Source Comments The information contained in this document represents components of the legal health record. It is not the complete legal health record.[facility]
--- OUTSIDE RECORDS SUMMARY | 2025-07-02 07:53 | XMS_ITS | Encounter Summary ---
Author Organization [facility] Address [address] [place] [address] Phone Care Team Providers Care Supervisor Telephone Answering Service Name Role Phone Kelsea De Luna CHILLER OPERATOR Primary Care Provider [phone] Silas Weathers MD Primary Care Provider [phone] Marcos Rocha NP Primary Care Provider + Naomy Ornelas MD Unavailable Encounter Details Date Type Department Care Team (Late Contact Info) Description 06/14/2018 Procedure Pass [address] [place] [address] Social History Tobacco Use Types Packs/Day Years [...] Description 07/04/2025 10:15 AM EDT Office Visit [facility] Services [address] [place] [address] Juan Bojorquez, DAVID [address] [place] [address] Orthopedics & Sports Medicine, [facility]. [place], [place] [phone] Klaus King, PT 4 [place] [address] 07/08/2025 9:15 AM EDT Office Visit [address] [address] Juan Bojorquez PA-C [address] [place] [address] Orthopedics Sports [facility], [place] [address] Klaus King, PT 4 [place] [address] 07/10/2025 9:45 AM EDT Office Visit [address] [address] Juan Bojorquez PA-C [address] [place], [place] [address]s Sports [facility], [place] [address] Andreina Naranjo PTA [address] [place] [address] 07/19/2025 3:15 PM EDT Office Visit [address] [address] Juan Bojorquez PA-C [address] [place] [address] Orthopedics Sports [facility], [place] [address] Klaus King, PT 4 [place] [address] 08/08/2025 8:30 AM EST Office Visit [facility] Orthopedics & Sports Medicine [address] [place] [address] Michael Holland MD [address] [place] [address] Orthopedics & Sports [facility] [place] [address] [email or web address] documented as of this encounter Visit Diagnoses Not on filedocumented in this encounter Care Teams Supervisor Telephone Answering Service Relationship Specialty Start Date End Date Kelsea De Luna NP [address] [place] [address] [place] [address] [email or web address] PCP - General 07/21/17 06/26/18 Silas Weathers MD [address] [place] [address] [place] [address] PCP - General Internal Medicine 06/27/18 03/13/23 Marcos Rocha NP [address] [place] [address] [place] [address] PCP - General Nurse Practitioner 03/14/23 Naomy Ornelas MD [address] [place] [address] [place] [address] Insurance Assigned Provider Internal Medicine 03/16/23 documented as of this encounter Additional Source Comments The information contained in this document represents components of the legal health record. It is not the complete legal health record.[facility]
--- OUTSIDE RECORDS SUMMARY | 2025-07-02 07:53 | XMS_ITS | Clinical Summary ---
Author Organization [facility] Address [address] [place] [address] Phone Care Team Providers Care Musical Performer Name Role Phone Marcos Rocha NP Primary [...] daily. bottle states take 2 tabs daily 5 Active cholecalciferol (VITAMIN D3) 2,000 unit tablet [...] the lungs 2 (two) times a day. 0 Active albuterol 2.5 mg /3 mL (0.083 %) nebulizer solution 0 Active coenzyme Q10 100 mg capsule Take 1 capsule by mouth every morning. 3 Active docusate sodium (COLACE) 100 MG capsule Take 1 capsule by mouth 2 (two) times a day. 3 Active therapeutic multivitamin tablet Take 1 tablet by mouth daily. Active magnesium oxide 250 mg (150 mg elemental) Tab Take 250 mg by mouth daily. Active metoprolol succinate (TOPROL-XL) 25 MG 24 hr tablet TAKE ONE-HALF TABLET 12.5 MG) BY MOUTH DAILY 3 Active rosuvastatin (CRESTOR) 20 MG tablet 3 Active levothyroxine (SYNTHROID, LEVOTHROID) 125 MCG tablet Take 125 mcg by mouth every morning. 3 Active ammonium lactate (AMLACTIN) 12 % cream 1 Application. Activ e lutein 40 mg Cap 1 capsule with a meal Orally Once a day for 30 day(s) Active SUMAtriptan (IMITREX) 25 MG tablet TAKE ONE TABLET BY MOUTH EVERY 2 TO 4 HOURS NEEDED FOR MIGRAINE HEADACHE FOR 10 DAYS. 4 Active estradioL (VAGIFEM) 10 mcg Tab 5 Active SENNA 8.6 mg tablet TAKE TWO TABLETS BY MOUTH AT BEDTIME FOR CONSTIPATION 5 Active cyclobenzaprine (FLEXERIL) 10 MG tablet TAKE 1 TABLET BY MOUTH DAILY NEEDED FOR MUSCLE SPASM; DO NOT TAKE WITH TRAMADOL 5 Active acetaminophen (TYLENOL) 325 mg tablet Take 2 tablets (650 mg total) by mouth every 6 (six) hours. 100 tablet 5 Active aspirin 81 MG EC tablet Take 1 tablet (81 mg total) by mouth 2 (two) times a day for 55 doses. 55 tablet 5 Active ascorbic acid, vitamin C, (VITAMIN C) 500 MG tablet Take 500 mg by mouth daily. 5 Active antiox #8/om3/dha/epa/l ut/zeax (PRESERVISION AREDS 2, OMEGA-3, ORAL) Take 2 capsules by mouth daily. Active Lactobacillus rhamnosus GG (CULTURELLE ORAL) Take 1 capsule by mouth daily. Active oxyCODONE 5 MG immediate release tabletIndication s:History of revision of total replacement of right knee joint,Post-op pain Take 1 tablet (5 mg total) by mouth daily as needed for pain (specific location in comments) (right knee). Partial fill ok 15 tablet Active celecoxib (CELEBREX) 100 MG capsule Take 1 capsule (100 mg total) by mouth 2 (two) times a day. 60 capsule Active Active Problems Problem Noted Date Diagnosed Date [...] Date Closed right hip fracture, initial encounter 5 04/26/2025 Encounters Date Type Department Care Team Description 06/26/2025 1:30 PM EDT Office Visit [facility] [address] [place] [address] Juan Bojorquez PA-C Palermo, Christine, COMPUTER OPERATIONS TECHNICIAN Acute postoperative pain of right knee (Primary Dx) 06/22/2025 Refill [facility] Orthopedics & Sports Medicine [address] [place] [address] Juan Bojorquez PA-C Medication Refill 06/21/2025 8:15 AM EDT Office Visit [address] [address] Juan Bojorquez PA-C Jarjoura, Nicholas James, PT Acute postoperative pain of right knee (Primary Dx) 06/18/2025 2:15 PM EDT Office Visit [facility] [address] [place] [address] Juan Bojorquez, Andreina Broussard, COMPUTER OPERATIONS TECHNICIAN Acute postoperative pain of right knee (Primary Dx) 06/14/2025 8:15 AM EDT Office Visit [address] [address] Juan Bojorquez, Klaus Lee, PT Acute postoperative pain of right knee (Primary Dx) 06/11/2025 8:00 AM EDT Office Visit [address] [address] Juan Bojorquez, Klaus Lee, PT Acute postoperative pain of right knee (Primary Dx) 06/06/2025 9:30 AM EDT Office Visit [facility] Orthopedics & Sports Medicine [address] [place] [address] Juan Bojorquez PA-C Aftercare following joint replacement surgery (Primary Dx) 06/06/2025 9:29 AM EDT - 06/06/2025 11:59 PM EDT Hospital Encounter [address] [address] Juan Bojorquez PA-C Discharge Disposition: Home or Self Care 06/06/2025 8:15 AM EDT Office Visit [address] [address] Juan Bojorquez, Andreina Broussard, COMPUTER OPERATIONS TECHNICIAN Acute postoperative pain of right knee (Primary Dx) 06/04/2025 8:15 AM EDT Office Visit [address] [address] Juan Bojorquez, Andreina Broussard, COMPUTER OPERATIONS TECHNICIAN Acute postoperative pain of right knee (Primary Dx) 05/30/2025 Plan of Care Documentation [address] [address] 05/28/2025 8:00 AM EDT Office Visit [address] [address] Juan Bojorquez, PA-C Klaus King, PT Acute postoperative pain of right knee (Primary Dx) 05/27/2025 11:00 AM EDT [facility] [address] [place] [phone] Samina Francis, PT PT OASIS DISCHARGE VISIT 05/24/2025 12:00 PM EDT Home [facility] Visit [facility] [address] [place] [phone] Samina Francis, PT PT HOME VISIT 05/21/2025 12:00 PM EDT Home Care Visit [facility] [address] [place] [phone] Samina Francis, PT PT HOME VISIT 05/17/2025 11:30 AM EDT Home Care Visit [facility] [address] [place] [address] Samina Francis, PT PT HOME VISIT 05/13/2025 1:00 PM EDT Home Care Visit [facility] [address] [place] [phone] Samina Francis, PT PT HOME VISIT 05/10/2025 12:00 PM EDT Home Care Visit [facility] [address] [place] [phone] Samina Francis, PT PT HOME VISIT 05/09/2025 9:00 AM EDT Office Visit [facility] Orthopedics & Sports Medicine [address] [place] [address] Juan Bojorquez, PACharissaC 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) 05/08/2025 1:00 PM EDT Home Care Visit [facility] [address] [place] [address] Samina Francis, PT PT HOME VISIT 05/06/2025 10:00 AM EDT Home Care Visit [facility] [address] [place] [address] Samina Francis, PT PT HOME VISIT 05/03/2025 12:00 PM EDT Home Care Visit [facility] [address] [place] [phone] Samina Francis, PT PT HOME VISIT 05/01/2025 11:30 AM EDT Home Care Visit [facility] [address] [place] [phone] Samina Francis, PT PT HOME VISIT 04/29/2025 12:30 PM EDT Home Care Visit [facility] [address] [place] [phone] Samina Francis, PT PT HOME VISIT 04/27/2025 11:00 AM EDT Home Care Visit [facility] [address] [place] [phone] Radha Erwin, PT PT OASIS START OF CARE (SOC) 04/27/2025 Plan of Care Documentation [facility] [address] [place] [phone] 04/24/2025 7:30 AM EDT - 04/24/2025 11:46 AM EDT Surgery OR Admitting Dept - Virtual Department [address] [place] [address] Michael Holland MD REVISION ARTHROPLASTY TOTAL KNEE 04/24/2025 7:23 AM EDT Anesthesia Event OR Admitting Dept - Virtual Department [address] [place] [address] Davide Andino Jr., DO 04/24/2025 6:00 AM EDT - 04/26/2025 12:05 PM EDT Hospital Encounter [facility] Joint [facility] [address] [address] Michael Holland MD Discharge Disposition: Home-Health Care [facility] 04/24/2025 Procedure Pass OR Admitting Dept - Virtual Department [address] [place] [address] 04/23/2025 8:00 AM EDT Pre-Admission Testing Pre Procedure Evaluation [address] [place] [address] Michael Holland MD 04/03/2025 Orders Only [facility] Orthopedics & Sports Medicine [address] [place] [address] Juan Bojorquez PA-C 04/02/2025 9:59 AM EDT - 04/02/2025 11:59 PM EDT Hospital Encounter [address] [address] Juan Bojorquez PA-C Discharge Disposition: Home or Self Care 04/02/2025 9:00 AM EDT Office Visit [facility] Orthopedics & Sports [address] [address] Juan Bojorquez PA-C Pre-op exam (Primary Dx); History of revision of total replacement of right knee joint 04/02/2025 Orders Only [facility] [address] [place] [address] Homehealth, Interface ProviderMD from Last 3 Months [...] Care Team (Late st Contact Info) Description 07/04/2025 10:15 AM EDT Office Visit [address] [phone] Juan Bojorquez PA-C 4 [facility] Sports [facility], [place] [address] [email or web address] Klaus King, PT 4 [place] [address] [email or web address] 07/08/2025 9:15 AM EDT Office Visit [address] [address] Juan Bojorquez PA-C [address] [place] [address], [place] [address] [email or web address] Klaus King, PT 4 [place], [place] [phone] [email or web address] 07/10/2025 9:45 AM EDT Office Visit [address] [address] Juan Bojorquez PA-C [address] [place] [address] Sports [facility], [place], [place] [phone] [email or web address] Andreina Naranjo PTA [address] [place] [address] [email or web address] 07/19/2025 3:15 PM EDT Office Visit [address] [phone] Juan Bojorquez PA-C [address] [place] [address] [place] [address] Klaus King, PT 4 [place] [address] 08/08/2025 8:30 AM EST Office Visit [facility] Orthopedics & Sports Medicine [address] [place] [address] Michael Holland MD 4 [facility] Orthopedics & Sports Medicine, [place] [address] [email or web address] Health Maintenance Due Date Last Done Comments [...] this topic Medical Devices Implanted Type Area Bell Ringer Device Identifier Shelf Expiration Date Model / Serial / Lot Knee Insert Tibial Implant Bar Locking Modular 15b - [id number] Implanted:Qty: 1 on 04/24/2025 by Michael Holland MD at [facility] Right: Knee [employer] 08/22/2034 [id number] / / [id number] Bilateral Knee Replacements Thatcher Suture 4.5mm Arthroscopy Reelx Stt Peek Stainless Steel Core Knotless Sharp Tip Expandable Sterile Bx/5ea - [id number] Implanted:Qty: 2 on 09/14/2018 by Chema Blankenship DO at [facility] Right: Hip [employer] 05/07/2020 [id number] / / [id number] Knee Bearing 16x63 To 67mm Insert Vanguard Posterior Stabilized Plus Medial Lateral Anterior - [id number] Implanted:Qty: 1 on 04/24/2025 by Michael Holland MD at [facility] Right: Knee [employer] 03/19/2028 [id number] / / [id number] Procedures Procedure Name Priority Date/Time Associated Diagnosis Comments XR KNEE 3 VIEW (RIGHT) Routine 06/06/2025 9:36 AM EDT Aftercare following joint replacement surgery AMB REFERRAL TO [facility] PHYSICAL THERAPY Routine 05/30/2025 3:01 PM EDT [...] NERVE,SINGLE PERF Routine 04/24/2025 7:23 AM EDT NE ANESTHESIA PERIPHERAL BLOCK PLACEHOLDER Routine 04/24/2025 7:23 [...] encounter note for this date of service. Juan Bojorquez PA-C IMG XR LOWER EXTREMITY Fi nal Result * Ambulatory referral to [facility] Physical Therapy (05/30/2025 3:01 PM EDT) Other us Juan Bojorquez PA-C [facility]B [facility] REFERRALS Final R esult * (ABNORMAL) CBC (04/26/2025 6:33 AM EDT) Only the most recent of2 resultswithin the time period is included. WBC 6.93 4.00 - 11.00 K/uL [facility] RBC 4.01 4.00 - 5.20 M/uL [facility] HGB 11.1(L) 12.0 - 16.0 g/dL [facility] HCT 34.3(L) 36.0 - 46.0 % [facility] PLT 245 150 - 450 K/uL [facility] MCV 85.5 80.0 - 100.0 fL [facility] MCH 27.7 27.0 - 31.0 pg [facility] MCHC 32.4 32.0 - 36.0 g/dL [facility] RDW 13.1 11.5 - 14.5 % [facility] MPV 8.8 8.4 - 12.0 fL [facility] NRBC 0.00 0.00 /100 WBCs [facility] ABSOLUTE NRBC 0.00 0.00 K/uL [facility] Blood 04/26/2025 6:33 AM EDT 04/26/2025 6:43 AM EDT us Juan Bojorquez PA-C LAB BLOOD ORDERABLES Candace l Result [address] [address] * (ABNORMAL) Basic metabolic panel (04/26/2025 6:33 AM EDT) Only the most recent of2 resultswithin the time period is included. SODIUM 136 133 - 146 mmol/L [facility] CHLORIDE 100 96 - 108 mmol/L [facility] POTASSIUM 3.6 3.3 - 5.1 mmol/L [facility] CO2 28 21 - 35 mmol/L [facility] BUN 14 6 - 19 mg/dL [facility] CREATININE 1.10 0.5 - 1.5 mg/dL [facility] GLUCOSE 112(H) 70 - 99 mg/dL [facility] CALCIUM 8.8 8.4 - 10.3 mg/dL [facility] EGFR 55(L) >59 mL/min/1.7 3m2 [facility] Comment:Estimated glomerular filtration rate calculated using the CKD-EPI refit equation. ANION GAP 12 10 - 20 mmol/L [facility] Blood 04/26/2025 6:33 AM EDT 04/26/2025 6:43 AM EDT us Juan Bojorquez PA-C LAB BLOOD ORDERABLES Candace morris Result Performing Organization Address City/State/[facility] Co de Phone Number [address] [address] * XR KNEE 1-2 VIEWS (RIGHT) (04/24/2025 [...] clinician's provided indication for this [facility]: Knee replacement, asymptomatic, follow up COMPARISON: XR KNEE 3 VIEW (RIGHT) Procedure Note Viktor Santos MD - 04/24/2025 XR KNEE 1-2 VIEWS (RIGHT) Referring clinician's provided indication for this examination in [facility]:Knee replacement, asymptomatic, follow up COMPARISON: XR KNEE [...] Glucose, POCT 104(H) 70 - 100 mg/dL [facility] 04/24/2025 10:2 3 AM EDT 04/24/2025 11:10 AM EDT us Michael Holland MD POINT OF CARE TEST ORDERABLE S Final Result Performing Organization Address City/State/[facility] Co de Phone Number [address] [address] * Spinal (04/24/2025 7:36 AM EDT) Narrative Marcos Dunlap CRNA - 04/24/2025 7:36 AM EDT Marcos Dunlap CRNA 04/24/2025 3:20 PM Spinal Placement Procedure Note: Start time: 04/24/2025 7:36 AM Performed by: fellow/resident/PIPE JEEPER Anesthesiologist: Davide Andino Jr., DO Fellow/Resident/PIPE JEEPER: Marcos Dunlap CRNA [place] Protocol performed: consent obtained, patient identified with [...] but patient cooperative. us Davide Andino Jr., NE ANESTHESIA Final R esult * NE ANESTHESIA PERIPHERAL BLOCK PLACEHOLDER, ANES INJ,ANES AGENT,FEMORAL [...] by: anesthesiologist Anesthesiologist: Davide Andino Jr., DO [place] Protocol Performed: consent obtained, patient identified with [...] Assessment Complications Observed: No Davide Andino Jr., DO NE ANESTHESIA Final R esult * Type and Screen (ABO,Rh,Antibody Screen) (04/24/2025 7:13 AM EDT) ABO/Rh A Negative [facility] Antibody Screen Negative [facility] Expiration Date of Sample 04/27/2025,2 359 [facility] Resulting Agency [facility] Blood 04/24/2025 7:13 AM EDT 04/24/2025 7:15 AM EDT us Michael Holland MD BLOOD BANK TEST ORDERABLES F inal Result [facility] [address] [place], [place] [id number] * XR KNEE 3 VIEW (RIGHT) (04/02/2025 10:12 AM EDT) Narrative SYSTEMGENERATED, DOCUMENTATION - 04/02/2025 10:13 AM EDT This image report has been auto-finalized and has not been read by a Radiologist. Interpretation has been included in the provider encounter note for this date of service. us Jaun Bojorquez PA-C IMG XR LOWER EXTREMITY Fi nal Result * (ABNORMAL) Staphylococcus aureus (MRSA/MSSA) PCR, Preoperative (04/02/2025 9:01 AM EDT) MRSA PCR SCREEN Negative Negative [facility] Staph Aureus PCR Screen Positive(A) Negative [facility] Comment:The Xpert MRSA Assay is intended to aid in the prevention and control of MRSA infections in healthcare settings. The assay is not intended to diagnose nor to guide or monitor treatment for MRSA infections. Other (Nasal) 04/02/2025 9:0 1 AM EDT 04/02/2025 4:01 PM EDT us Juan Bojorquez PA-C NON CULTURE MICROBIOLOGY Final Result [address] [address] from Last 3 Months Insurance MEDICARE PART A & B [employer] MEDICARE SUPPLEMENT MEDICARE PART A & B [facility] MEDICARE SUPPLEMENT [facility] Address: [address] [address] MEDICARE PART A & B MEDICARE PART A & B MEDICARE PART A & B MEDICARE SUPPLEMENT [facility] Address: [facility] [address] [place] [address] MEDICARE PART A & B MEDICARE PART A & B MEDICARE SUPPLEMENT [facility] Address: [address] [address] MEDICARE PART A & B [facility] MEDICARE SUPPLEMENT [facility] Address: [address] [address] MEDICARE PART A & B FOR LIFE MEDICARE SUPPLEMENT [facility] Address: [address] [address] Advance Directives For more information, please contact: [phone] (9AM - 5PM [facility], Tuesday-Tuesday) * Full Code (Latest Code Status on File) Date Activated Date Inactivated Comments 04/24/2025 6:07 AM Question Answer Comments Code Status Confirmed With: Patient * Full Code (Presumed) Date Activated Date Inactivated Comments 09/14/2018 11:41 AM 09/15/2018 4:14 AM Care Teams Musical Performer Relationship Specialty Start Date End Date Marcos Rocha NP [facility] [place] [address] PCP - General Nurse Practitioner 03/14/23 Naomy Ornelas MD [address] [facility] [place] [address] Insurance Assigned Provider Internal Medicine 03/16/23 Additional Source Comments The information contained in this document represents components of the legal health record. It is not the complete legal health record.[facility]
--- OUTSIDE RECORDS SUMMARY | 2025-07-02 07:53 | XMS_ITS | Encounter Summary ---
Author Organization [facility] Address [address] [place] [address] Phone Care Team Providers Care Loader Name Role Phone Marcos Rocha NP Primary Care Provider + Naomy Ornelas MD Unavailable [phone] Reason for Visit * Reason Comments Medication Refill Encounter Details Date Type Department Care Team ([facility] Contact Info) Description 06/22/2025 Refill [facility] Orthopedics & Sports Medicine [address] [place] [address] Juan Bojorquez PA-C [address] [place] [address] Orthopedics & Sports Medicine, [place] [address] [email or web address] Medication Refill Social History Tobacco Use Types Packs/Day Years [...] Description 07/04/2025 10:15 AM EDT Office Visit [facility] [address] [place] [address] Juan Bojorquez PA-C [address] [facility] [address] [facility] [place] [address] Klaus King, PT 4 [place] [address] 07/08/2025 9:15 AM EDT Office Visit [address] [address] Juan Bojorquez PA-C [address] [facility] Orthopedics Sports [facility], [place] [address] Klaus King, PT 4 [place] [address] 07/10/2025 9:45 AM EDT Office Visit [address] [address] Juan Bojorquez PA-C [address] [place] [address] [facility], [place] [address] Andreina Naranjo GEM SETTER [address] [place] [address] 07/19/2025 3:15 PM EDT Office Visit [address] [address] Juan Bojorquez PA-C [address] [place] [address] Orthopedics Sports [facility], [place] [address] Klaus King, PT [address] [place] [address] 08/08/2025 8:30 AM EST Office Visit [facility] Orthopedics & Sports Medicine [address] [place] [address] Michael Holland MD [address] [place] [address] Orthopedics & Sports Medicine, [facility] [place] [address] [email or web address] documented as of this encounter Visit Diagnoses Not on filedocumented in this encounter Care Teams Loader Relationship Specialty Start Date End Date Marcos Rocha NP [address] [facility] [place] [address] PCP - General Nurse Practitioner 03/14/23 Naomy Ornelas MD [address] [facility] [place] [address] Insurance Assigned Provider Internal Medicine 03/16/23 documented as of this encounter Additional Source Comments The information contained in this document represents components of the legal health record. It is not the complete legal health record.[facility]
--- OUTSIDE RECORDS SUMMARY | 2025-07-02 07:53 | XMS_ITS | Encounter Summary ---
Author Organization [facility] Address [address] [place] [address] Phone Care Team Providers Care Metallographer Name Role Phone Silas Weathers MD Primary Care Provider Marcos Rocha NP Primary Care Provider + Naomy Ornelas MD Unavailable + [phone] Encounter Details Date Type Department Care Team (Late Contact Info) Description 09/14/2018 Procedure Pass OR Admitting Dept - Virtual Department [address] [place] [address] Social History Tobacco Use Types Packs/Day Years [...] Description 07/04/2025 10:15 AM EDT Office Visit [facility] [address] [place] [address] Juan Bojorquez PA-C [address] [place] [address] Orthopedics & Sports Medicine, [facility]. [place], [place] [phone] Klaus King, PT 4 [place] [address] 07/08/2025 9:15 AM EDT Office Visit [address] [address] Juan Bojorquez PA-C 4 [facility] Orthopedics Sports [facility], [place] [address] Klaus King, PT 4 [place] [address] 07/10/2025 9:45 AM EDT Office Visit [address] [address] Juan Bojorquez PA-C [address] [place], [place] [address]s Sports [facility], [place] [address] Andreina Naranjo, LOOPER FIXER 4 [place] [address] 07/19/2025 3:15 PM EDT Office Visit [address] [address] Juan Bojorquez PA-C [address] [place], [place] [address]s Sports [facility], [place] [address] Klaus King, PT 4 [place] [address] 08/08/2025 8:30 AM EST Office Visit [facility] Orthopedics & Sports Medicine [address] [place] [address] Michael Holland MD [address] [place] [address] Orthopedics Sports [facility], [place] [address] [email or web address] documented as of this encounter Visit Diagnoses Not on filedocumented in this encounter Care Teams Metallographer Relationship Specialty Start Date End Date Silas Weathers MD [address] [place] [address] [place] [address] PCP - General Internal Medicine 06/27/18 03/13/23 Marcos Rocha NP [address] [place] [address] [place] [address] PCP - General Nurse Practitioner 03/14/23 Naomy Ornelas MD [address] [place] [address] [place] [address] Insurance Assigned Provider Internal Medicine 03/16/23 documented as of this encounter Additional Source Comments The information contained in this document represents components of the legal health record. It is not the complete legal health record.[facility]
--- OUTSIDE RECORDS SUMMARY | 2025-07-02 07:54 | XMS_ITS | Patient Health Record ---
Author Organization [facility] [place] Address [address] [place] [address] Care Team Providers Care Gate Watch Name Role Phone Marcos Samuels Primary Care Provider Susanne Austin Unavailable [phone] Allergies Allergen (clinical drug ingredient) Drug/Non Drug [...] Status Risk Notes Problem Acquired hallux valgus (09254093) Hallux valgus (acquired), left foot (M20.12) Active confirmed Problem Localized, primary osteoarthritis of the ankle and/or foot (259940876) Primary osteoarthrit is, right ankle and foot (M19.071) Active confirmed Problem Localized, primary osteoarthritis of the ankle and/or foot (133227179) Primary osteoarthrit is, left ankle and foot (M19.072) Active confirmed Problem Acquired hammer toe of right foot (0718417098016179) Other hammer toe(s) (acquired), right foot (M20.41) Active confirmed Problem Acquired hammer toe of left foot (2917207871951780) Other hammer toe(s) (acquired), left foot (M20.42) [...] Ordered Date Performed Result Body Sit e 29628-CDF 07/31/2024 N/A 65415-FSPIAXA SKIN/TISSUE 08/16/2024 N/A 36595-FAO 09/04/2024 N/A 70228-XTJINHL SKIN/TISSUE 09/20/2024 N/A Encounters Encounter Location Date Provider Diagnosis [address] [address] 07/31/2024 Susanne Garrison Ingrown nail L60.[address] [address] 08/16/2024 Susanne Garrison Xerosis of skin L85.3 and Skin ulcer of toe of left foot with fat layer exposed L97.522 [facility] [address] [address] 09/04/2024 Susanne Garrison Ingrown nail L60.[address] [address] 09/20/2024 Susanne Garrison Skin ulcer of toe of right foot with fat layer exposed L97.[address] [address] 10/25/2024 Susanne Garrison Ingrown toenail L60.[address] [address] 08/01/2024 Susanne Garrison [address] [address] 09/21/2024 Susanne Garrison [address] [address] 03/11/2025 Susanne Garrison Xerosis of skin L85.3 [facility] [place] [address] [place] [address] 04/17/2025 Susanne Garrison Assessments Encounter Date Diagnosis [...] CARE INSTRUCTIONS.p df (WOUND CARE INSTRUCTIONS.p df) 08/16/2024 Other Patient Educated with: WOUND CARE [...] X ray : Foot, right 3V 07/09/2019 65282-Duvc Destruction, 1-14 12/16/2014 30116-Wxcy Destruction, 1-14 01/16/2015 32259-HLK 07/31/2024 71927-URG 09/04/2024 54278-TVPFTAX SKIN/TISSUE 09/20/2024 05802-AMFTUWA SKIN/TISSUE 08/16/2024 Insurance Providers Payer Name Payer Address Payer Phone Subscriber Number Group Number Insured Name Patient Relationship to Insured Coverage Start Date Coverage End Date Medicare National [employer]t [employer] [address] [place] [address] [id number] Radha Jean Self - patient is the insured [employer] [address] [place] [address] [phone] [id number] Radha Jean Self - patient is the [...] 11/1983 left knee replacement 2012 hip surgery-tendon scrbip-hbekginwey-nen an tibial band repair colonoscopy 12/2021
--- OUTSIDE RECORDS SUMMARY | 2025-07-02 07:54 | XMS_ITS | Encounter Summary ---
Author Organization [facility] Address [address] [place] [address] Phone Care Team Providers Care Cognos Report Developer Name Role Phone Marcos Rocha DATA SYSTEMS MANAGER Primary Care Provider + Naomy Ornelas MD Unavailable [phone] Encounter Details Date Type Department Care Team (Late st Contact Info) Description 04/24/2025 Procedure Pass OR Admitting Dept - Virtual Department [address] [place] [address] Social History Tobacco Use Types Packs/Day Years [...] 1:00 PM EDT Maira Melendez, ROCÍO * [place] Suicide Severity Rating Scale (Screener/Recent Self-Report) Question [...] Description 07/04/2025 10:15 AM EDT Office Visit [address] [address] Juan Bojorquez PA-C 4 [facility], [place] [address] Klaus King, PT 4 [place] [address] 07/08/2025 9:15 AM EDT Office Visit [address] [address] Juan Bojorquez PA-C [address] [place] [address], [place] [address] Klaus King, PT 4 [place] [address] 07/10/2025 9:45 AM EDT Office Visit [address] [address] Juan Bojorquez PA-C [address] [place] [address], [place] [address] Andreina Naranjo PTA 4 [place] [address] 07/19/2025 3:15 PM EDT Office Visit [address] [address] Juan Bojorquez PA-C [address] [place] [address], [place] [address] Klaus King, PT 4 [place] [address] 08/08/2025 8:30 AM EST Office Visit [facility] Orthopedics & Sports Medicine [address] [place] [address] [phone] Michael Holland MD [address] [place] [address] Orthopedics & Sports Medicine, [facility]. [place], [place] [phone] documented as of this encounter Visit Diagnoses Not on filedocumented in this encounter Care Teams Cognos Report Developer Relationship Specialty Start Date End Date Marcos Rocha NP [facility] [place] [address] PCP - General Nurse Practitioner 03/14/23 Naomy Ornelas MD [address] [facility] [address] Insurance Assigned Provider Internal Medicine 03/16/23 documented as of this encounter Additional Source Comments The information contained in this document represents components of the legal health record. It is not the complete legal health record.[facility]
--- OUTSIDE RECORDS SUMMARY | 2025-07-02 07:54 | XMS_ITS | Encounter Summary ---
Author Organization [facility] Address [address] [place] [address] Phone Care Team Providers Care Wind Tunnel Mechanic Name Role Phone Marcos Rocha NP Primary Care Provider + Naomy Ornelas MD Unavailable [phone] Encounter Details Date Type Department Care Team (Latest Contact Info) Description 07/09/2024 Ancillary Orders [facility] Orthopedics & Sports Medicine [address] [place] [address] Sharath Zepeda PA-C [address] [place] [address] Orthopedics & Sports Medicine, [facility] [address] [email or web address] Bilateral hip pain (Primary Dx); Bilateral [...] Description 07/04/2025 10:15 AM EDT Office Visit [address] [address] Juan Bojorquez PA-C 4 [facility] Sports [facility], [place] [address] [email or web address] Klaus King, PT 4 [place] [address] [email or web address] 07/08/2025 9:15 AM EDT Office Visit [address] [address] Juan Bojorquez PA-C [address] [place] [address], [place] [address] [email or web address] Klaus King, PT 4 [place] [address] [email or web address] 07/10/2025 9:45 AM EDT Office Visit [address] [address] Juan Bojorquez PA-C [address] [place] [address], [place] [address] [email or web address] Andreina Naranjo PTA 4 [place] [address] [email or web address] 07/19/2025 3:15 PM EDT Office Visit [address] [address] Juan Bojorquez PA-C [address] [place] [address], [facility] [place] [address] Klaus King, PT 4 [place] 08/08/2025 8:30 AM EST Office Visit [facility] Orthopedics & Sports Medicine 4 [place], [place] [phone] Michael Holland MD 4 [facility] Orthopedics & Sports Medicine, [place] [address] [email or web address] documented as of this encounter Results * [...] leg documented in this encounter Care Teams Wind Tunnel Mechanic Relationship Specialty Start Date End Date Marcos Rocha NP [address] [facility] [place] [address] PCP - General Nurse Practitioner 03/14/23 Naomy Ornelas MD [address] [facility] [place] [address] Insurance Assigned Provider Internal Medicine 03/16/23 documented as of this encounter Additional Source Comments The information contained in this document represents components of the legal health record. It is not the complete legal health record.[facility]
[2025-07-02 08:24] LABS: Appearance Urine Clear; Glucose Urine UA Negative (Negative); PH 6.5 (5.0-9.0); Specific Gravity - Urine 1.010 (1.005-1.025); UMIC TRIGGER UA YES
== END 2025-07-02 07:44 | disposition home or self-care (01) ==
LOC: HO.LAB 07:43
PROVIDERS: PCP Nurse Practitioner Family; Visit Provider Nurse Practitioner Family
DX: N39.0 Urinary tract infection, site not specified (principal)
CPT/HCPCS: 81001; 87086

== ENCOUNTER 2025-08-14 08:53 | Outpatient (AMB) | payer MEDICARE, OTHER, SELFPAY ==
--- OUTSIDE RECORDS SUMMARY | 2024-10-25 09:30 | XMS_ITS ---
Author Organization [facility] Address [address] [place] [address] Care Team Providers Care Sound Engineer Audio Control Name Role Phone Marcos Samuels Primary Care Provider Unav ailable Susanne Garrison Unavailable [phone] REASON FOR VISIT X CHG Encounters Encounter Location Date Provider Diagnosis [address] [address] 10/25/2024 Susanne Garrison Plan Of Treatment Next Appt Details Provider Name:Susanne washington, 09/12/2025 08:30:00 AM, [address] [place], [address], Progress Notes * Radha JEAN LDOB: (65 yo F)Acc No.[id number]:10/25/2024 Progress Note Patient: Jacobo MCDONOUGH Radha Mckoy Provider: Wilmar Garrison DPM :1960 A ge:64 Y S ex:Female Date:10/25/2024 [facility] Pcp:JOSELO Cruz Subjective: * Chief Complaints: * 1 . X CHG. * Medical History: Objective: * Vitals: Assessment: Plan: * Treatment: * Images: * The named appointment provid er may or may not be the originator of this progress note, and it is not deemed complete until electronically signed by the appointment provider. Sign off status: Pending * Provider: Wilmar Garrison DPM Date: 0 10/25/2024 Generated for Virgilio barreto/Alin/Adriana on: 1 10/14/2024 09:24 AM EST
--- OUTSIDE RECORDS SUMMARY | 2025-08-13 08:15 | XMS_ITS | Encounter Summary ---
Author Organization [facility] Address [address] [place] [address] Phone Care Team Providers Care Captain Room Service Name Role Phone Marcos Rocha NP Primary Care Provider + Naomy Ornelas MD Unavailable + [phone] Reason for Visit * Physical Therapy (Within 2 weeks) - Authorized Specialty Diagnoses / Procedures Referred By Bi hou Referred To Contact Physical Therapy Diagnoses right TKA revision, patellectomy Juan Bojorquez PA-C Phone: tel: fax: [email or web address] [facility] [address] [place] [address] Phone: tel: Referral ID Status Reason Start Date Expiration Date V isits Requested Visits Authorized [id number] Authorized 04/02/2025 04/02/2026 99 99 Encounter Details Date Type Department Care Team (Latest Contact Info) Description 08/13/2025 8:15 AM EST Office Visit [facility] [address] [place] [address] [phone] Juan Bojorquez PA-C [address] [place] [address] Orthopedics & Sports Medicine, [facility] [place] [address] [email or web address] Andreina Lozada PTA [address] [place] [address] [phone] [email or web address] Acute postoperative pain of right knee (Primary [...] as of this encounter Progress Notes * Andreina Naranjo, PIT STEWARD - 08/13/2025 8:15 AM EST Physical Therapy Progress Note Patient Name: Radha Jean Date of : 1960 This patient has attended 13 visits since the onset Physical Therapy. Referring MD: Juan Bojorquez PA-C [address] [place] [address] Orthopedics & Sports Medicine, [place] [address] Diagnosis: Acute postoperative pain of right knee [...] TKA protocol R patellectomy Asthma Subjective comments: Pt reports she has been on vacation. She didn't do her exs as much, but did a lot of walking. She is back to doing her HEP first thing in the morning and will be going back to her water aerobics class this week She has seen the MD who would like more hip strengthening done. He feels the knee is well healed Pain comments pre-treatment: R knee: 0/10 Objective Measures: KNEE: Ext-Flex LEFT (??) RIGHT (??) AROM 0-140 0-130 PROM 0-140 0-130 Strength: Dynamometry testing units in lbs. MMT data on 0-5 scale. KNEE: LEFT RIGHT Flexion (S2) 4-/5 24.5 4-/5 22.2 Extension (L3) 4/5 34 4-/5 17.3 SLR No lag 5?? lag Comments: GOAL (Short Term): Within 4 weeks the pt will demonstrate: 1) independence with initial HEP (MET) 2) ability to ambulate without AD for all household ambulation, cane for community-length distance (MET) 3) improved R quad and HS strength by >/= 1/3 MMT grade 4) improved R single leg balance to >/= 10sec (PARTIALLY MET: L = 4sec R = 7sec) 5) no buckling of the R knee (NOT MET: one recent instance on Friday 07/06) OUTCOME (Nursing Home): Within 6 weeks the pt will demonstrate: 1) independence with advanced HEP and symptom management. (PARTIALLY MET: ongoing/progressing) 2) ability to perform all household and community ambulation without AD (PARTIALLY MET: true for household, but not community ambulation) 3) >/= 20 point increase in LEFS score 4) ability to reciprocally ascend/descend stairs with unilateral railing support (PARTIALLY MET: requires BUE on railing) Interventions: See encounter report for minutes associated with each intervention. Warm Up: [x] Scifit, seat 13, no UEs, resistance 4 x 6' Manual: [] STM to L quad [] STM to L piriformis in R SL Therex: [] QS 5 x 10- seated [] SLR x 10- seated [] Bridge x 10 [] Standing hip abd x 10 [] Marching at counter x 10 [] CC kvng HS curl 5#x10, 7.5#x10, 8.5#x10 [] CC kvng ext 3.5# x20 [] CC resisted TKEs: 5# x10 with 3sec holds (also gave blueTband for home) [] SLS x 5 , x 3 [] Standing: lateral stepping with narrowYLoop at ankles 2x20 [] Standing: anterior step up R, anterior step down L: 4'' box [] Anterior step up R, posterior step down L: 6'' box x10 with LUE support [] Lateral step ups/down: 6'' box x10 [] Total Gym: B squats level 20 x15, level 22 x10 [x] Supine Piriformis Stretch with Foot on Ground - 1 x daily - 7 x weekly - 1 sets - 2 reps - 30sec hold [] Supine Lower Trunk Rotation - 1 x daily - 7 x weekly - 1 sets - 2 reps - 30sec hold [] Hooklying Single Knee to Chest Stretch - 1 x daily - 7 x weekly - 1 sets - 2 reps - 30sec hold [x] Supine Bridge with RTB around knees - 1 x daily - 3-4 x weekly - 2 sets - 10 reps - 5sec hold [] Hooklying Isometric Hip Flexion - 1 x daily - 3-4 x weekly - 2 sets - 10 reps - 5sec hold [x] SL clamshell x 10 [x] Standing hip abd x 10 [x] 4 step ups with glut med activation . Gait: [x] Side stepping at counter [] Posterior stepping 2x20 feet [] Lateral stepping 2x20 feet (manual resistance for 2nd set) [] Anterior oumar stepping 6'' hurdles (alternating - with unilateral UE support) [] Lateral steppin'' hurdles 6x4 [] Stairs: reciprocally ascended full flight with cane and railing, descended 4 steps leading with LLE Home Exercise Program: Access Code: [email or web address] URL: [email or web address] Date: 07/08/2025 Prepared by: Klaus King Exercises - Bilateral Short Arc Quad Set - [...] - 2 sets - 10 reps - Seated Hip Abduction with Resistance - 1 x daily - 7 x weekly - 2 sets - 10 reps - Step Up - 1 x daily - 7 x weekly - 2 sets - 10 reps - Sit to Stand Without Arm Support - 1 x daily - 7 x weekly - 3 sets - 5 reps - Single Leg Stance - 1 x daily - 7 x weekly - 3 sets - 3 reps - 10sec hold - Standing Terminal Knee Extension with Resistance - 1 x daily - 7 x weekly - 1 sets - 20 reps - 5sec hold For Back: Access Code: [email or web address] URL: [email or web address] Date: 07/19/2025 Prepared by: Klaus King Exercises - Supine Piriformis Stretch with Foot on Ground - 1 x daily - 7 x weekly - 1 sets - 2 reps - 30sec hold - Supine Lower Trunk Rotation - 1 x daily - 7 x weekly - 1 sets - 2 reps - 30sec hold - Hooklying Single Knee to Chest Stretch - 1 x daily - 7 x weekly - 1 sets - 2 reps - 30sec hold - Supine Bridge - 1 x daily - 3-4 x weekly - 2 sets - 10 reps - 5sec hold - Hooklying Isometric Hip Flexion - 1 x daily - 3-4 x weekly - 2 sets - 10 reps - 5sec hold - Hooklying Lumbar Traction - 1 x daily - 7 x weekly - 1 sets - 10 reps - 10sec hold Assessment: Focus on hip/ glut med strengthening today per MD. Pt had difficulty activating glut med, needing physical cues. Updated HEP Plan: Frequency and Duration: Patient will be seen 2 times per week for 4 weeks. Focus on quad strength and gait mechanics. Treatment will include: - Therapeutic exercise: AROM, strengthening - Neuro Re-ed: balance/proprioceptive control - Functional mobility training: gait, stairs, transfers - Pt education and activity modification - HEP - Cryotherapy: game ready ice and compression Andreina Naranjo PTA 51 documented in this encounter Plan of Treatment Upcoming Encounters Date Type Department Care Team (Late st Contact Info) Description 08/20/2025 8:00 AM EST Office Visit [facility] 4 [place], [place] [phone] Juan Bojorquez PA-C 4 [facility] [place] [place] [address] [email or web address] Klaus King, PT 4 [place], [place] [phone] 08/26/2025 10:45 AM EST Office Visit [address] [phone] Juan Bojorquez PA-C [address] [place] [address] Klaus King, PT 4 [place] [address] 09/05/2025 7:30 AM EST Office Visit [address] [phone] Juan Bojorquez PA-C [address] [place] [address] [phone] Andreina Naranjo PTA [address] [place] [phone] [email or web address] 09/12/2025 12:45 PM EST Office Visit [address] [phone] Juan Bojorquez PA-C [address] [place] [address] [phone] Andreina Naranjo PTA [address] [place] [phone] [email or web address] 09/18/2025 9:00 AM EST Office Visit [address] [phone] Juan Bojorquez PA-C [address] [place] [address], [place], [place] [phone] Andreina Naranjo PTA [address] [place] [phone] [email or web address] 09/24/2025 12:45 PM EST Office Visit [address] [address] Juan Bojorquez PA-C 4 [facility] Sports [facility], [place] [address] [email or web address] Marcella Andreina, PIT STEWARD 4 [place] [address] [email or web address] 10/01/2025 11:45 AM EST Office Visit [address] [address] Juan Bojorquez PA-C [address] [place] [address] Sports [facility], [place] [address] [email or web address] Klaus King, PT 4 [place] [address] [email or web address] documented as of this encounter Visit Diagnoses Diagnosis Acute postoperative pain of right knee- Primary documented in this encounter Care Teams Captain Room Service Relationship Specialty Start Date End Date Marcos Rocha NP [address] [facility] [place] [address] PCP - General Nurse Practitioner 03/14/23 Naomy Ornelas MD [address] [facility] [place] [address] Insurance Assigned Provider Internal Medicine 03/16/23 documented as of this encounter Additional Source Comments The information contained in this document represents components of the legal health record. It is not the complete legal health record.[facility]
--- NOTE | 2025-08-14 09:03 | A.OFFVIS_ITS ---
Vital Signs 08/14/25 09:12 Height 5 ft 4 in Weight 192 lb BMI 33.0 BP 124/72 Blood Pressure Location Rt brachial Position Sitting Pulse 76 Pulse Source Pulse Oximeter Pulse Oximetry (%) 95 Oxygen Delivery Method Room Air Intake Visit Reasons: CIC , TICS, TRANSMINITS Intake Note: Est pt for mgmt of CIC + Fatty Liver. CC; Pt denies any current GI sx or concerns. Reports she had recently received abx tx for diverticulitis from our office which was helpful in resolving their sx. 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 Required: No Accompanied by: Self / Same As Patient Allergies lactose Allergy (Unknown, Verified 08/14/25 09:09) lactose intolerant GI upset sulfamethoxazole Allergy (Unknown, Verified 08/14/25 09:09) vomiting tizanidine Allergy (Verified 08/14/25 09:09) Vomiting doxycycline Adverse Reaction (Severe, Verified 08/14/25 09:09) Diarrhea HPI HPI CIC , TICS, TRANSMINITS: Details: Assessment & Plan (1) Irritable bowel syndrome with both constipation and diarrhea: Code(s): K58.2 - Mixed irritable bowel syndrome Category: Medical (2) Chronic idiopathic constipation: Code(s): K59.04 - Chronic idiopathic constipation Category: Medical (3) Transaminitis: Comment: Baseline Laboratory Tests 10/22/2203/ 09:4507:1509:22 Estimated GFR > 60 Total Bilirubin 0.4 AST 51 H ALT 73 H Alkaline Phosphatase 58 TSH 0.71 ROBER Screen NEGATIVE Hepatitis A IgM Ab Nonreactive Hep Bs Antigen Negative Hep Bs Antibody NONREACTIVE Hepatitis C Ab (EIA) Nonreactive Current labs ULTRASOUND OF THE ABDOMEN Code(s): R74.01 - Elevation of levels of liver transaminase levels Category: Medical Plan She will be having rt knee surgery for an encapsulated kneecap. After surgery she will be non weight bearing for 7 weeks!! But it is needed as she has been falling and even gave herself a back eye with one fall. She had a bad bout of CIC after her vacation, she was taking her senna and colace but we did not eat right! It took her a month to get back to normal, and her hemorrhoids were bad!! She added prune juice daily and continues with this. The hemorrhoidal pain has resolved. She developed generalized itching and malaise and padmini for labs, she discovered that she had forgot to take her Welbutrin for 2 weeks !! General labs showed transaminitis that is new, her PCP did Hep serologies that were negative, I will add autoimmune labs and HIV to be thorough. She has US ordered by PCP. She does not drink alcohol but it met she has gained a significant amount of weight recently. To date she is not diabetic. She was educated about the likelihood of fatty liver and the importance of weight control for this metabolic induced potential liver injury. ROV 6 mos. Orders: Orders Smooth Muscle Antibody Today R74.01 - Elevation of levels of liver transaminase levels Ferritin Today R74.01 - Elevation of levels of liver transaminase levels Alpha Fetoprotein Today R74.01 - Elevation of levels of liver transaminase levels Mitochondrial Antibody Today R74.01 - Elevation of levels of liver transaminase levels US abdomen complete 01/26/25 R74.8 - Abnormal levels of other serum enzymes HIV Ab/Ag Today R74.01 - Elevation of levels of liver transaminase levels Medications: Refilled docusate sodium (Colace) 100 mg PO BID 60 caps 6RF sennosides (senna) 17.2 mg (2 x 8.6 mg) PO BEDTIME 60 caps 6RF constipation 30 days K59.04 - Chronic idiopathic constipation LABS: Laboratory Tests 10/22/21 02/08/25 09:45 08:35 Ferritin 64 Alpha Fetoprotein 5.1 ROBER Screen NEGATIVE Anti-Mitochondrial Ab NEGATIVE Anti-Smooth Muscle Ab <20 HIV 1&2 Ab/P24 Ag 4thGn Nonreactive ULTRASOUND OF THE ABDOMEN 02/21/2025 Findings: Liver measures 14 cm in long axis. Liver is of normal echotexture without focal lesion or intrahepatic biliary ductal dilatation. Common bile duct is dilated to 8.2 mm. However, no discrete intraluminal filling defects seen within the common bile duct. Gallbladder is surgically absent. Increased echotexture throughout the pancreas without discrete mass or pancreatic ductal dilatation. Spleen is unremarkable. There is a 7 mm simple cyst within the left kidney. Kidneys otherwise unremarkable. Atherosclerotic calcification of the abdominal aorta without aneurysmal dilatation. Inferior vena cava is patent. No free fluid. Impression: 1. Likely postcholecystectomy ectasia of the common bile duct. Correlation with the patient's bilirubin level is suggested. 2. Echogenic pancreas is most characteristic of fatty replacement. 3. Subcentimeter simple left renal cyst. TODAY'S VISIT [facility] Medical History (Updated 08/14/25 @ 09:39 by NELY Rob) Elevated liver enzymes Encounter for medication monitoring Polyarticular osteoarthritis History of cigarette smoking Encounter for annual wellness visit (AWV) in Medicare patient Abdominal pain Rash Contact dermatitis Upper respiratory tract infection Impacted cerumen, bilateral Fatigue Dietary counseling Screening for cervical cancer Physical exam Tubular adenoma of colon Diverticular disease Acute diverticulitis Macular degeneration Seborrheic keratosis Dyslipidemia Depression Asthma COPD (chronic obstructive pulmonary disease) HTN (hypertension) Hypothyroid Fibromyalgia Lumbar spondylosis Surgical History History of colonoscopy Hx laparoscopic cholecystectomy History of surgery H/O breast biopsy History of hysterectomy History of knee replacement procedure of right knee History of knee replacement procedure of left knee Family History Father Unknown family medical history Mother Unknown family medical history Social History Household Members: Spouse Housing: House Do you presently have visiting nurse or other home services: No Alcohol intake: never Patient Tobacco Use Status: Never used Tobacco e-Cigarette/Vaping Use: Never Used Second Hand Smoke Exposure: No Advance Directives Date on File: 01/08/22 service: No Current occupational status: disabled Cognitive needs: No Hearing needs: No Vision needs: No Review of Systems Const Denies fatigue, Denies fever(s), Denies night sweats, Denies poor appetite and Denies weight loss Eyes Details: glasses Reports requires corrective lenses ENT Reports Normal hearing present, Denies dental pain, Denies dysphagia, Denies hearing loss, Denies mouth pain, Denies odynophagia, Denies throat swelling, Denies tongue swelling and Reports other (Dentition adequate) Card Reports no additional complaints Resp Reports no additional complaints GI Details: Denies abdominal pain, Denies melena, Denies bloating, Denies hematochezia, Reports constipation, Denies GI cramping, Denies dysphagia, Denies excessive flatus, Denies early satiety, Denies heartburn, Denies diarrhea, Denies nausea, Denies odynophagia, Denies vomiting and Denies hematemesis Musc Reports abnormal gait and Reports arthralgias Skin/Breast Denies pruritus, Denies lesions, Denies rash and Denies jaundice Neuro Reports Normal hearing present, Denies Abnormal speech present and Reports abnormal gait Endo Denies fatigue Aller/Immun Denies throat swelling and Denies tongue swelling Physical Exam Vital Signs: Last Vital Signs Pulse 76 08/14/25 09:12 BP 124/72 08/14/25 09:12 Pulse Ox 95 08/14/25 09:12 Oxygen Delivery Method Room Air 08/14/25 09:12 BMI result Body Mass Index 33.0 Const General: cooperative, no acute distress, well developed and well groomed Nutritional Appearance: well nourished and overweight Orientation/consciousness: oriented to person, oriented to place and oriented to time Limitations: No language barrier and ambulation with cane HEENT Head: Yes normocephalic and Yes atraumatic Eyes General: appearance normal, both eyes and all related structures Pupils: Equal, round and reactive pupils present Neck Neck: Yes normal visual inspection and Yes no lymphadenopathy Thyroid: Thyroid normal Resp Effort & Inspection: normal respiratory effort and able to speak in complete sentences Auscultation: clear to auscultation bilaterally Cardio Rate: regular rate Rhythm: regular rhythm Heart sounds: Normal, physiologic split S2 sound present Peripheral pulses: radial pulses present and posterior tibial pulses present GI Inspection: No distended, No Abdominal panniculus present and Yes obesity Palpation (GI): Soft to palpation, nontender, no guarding, not rigid and No hepatosplenomegaly present Percussion: Yes normal to percussion Auscultation: normal bowel sounds Rectal Exam - Female: deferred Skin General skin exam: no rashes or lesions noted, turgor normal, skin not dry, no jaundice, No spider nevi and no striae Rashes: no rashes Nails: normal Neuro General: oriented to person, oriented to place and oriented to time Cranial nerves: Yes Equal, round and reactive pupils present and Yes Normal hearing present Speech: No Abnormal speech present Extrem General: Yes normal to inspection, No clubbing, No cyanosis and No edema Psych Appearance: grossly normal and well kempt Mental Status: mental status grossly normal Speech and movement: Normal speech and movement present Affect: normal affect Attitude: cooperative Thought process: Normal thought process present and not confabulating Thought content: Normal thought content present Insight: Good insight present (Psych) Judgement: Good judgement present (Psych) Results Reviewed Results Reviewed: 10/22/21 02/08/25 09:45 08:35 Ferritin 64 Alpha Fetoprotein 5.1 ROBER Screen NEGATIVE Anti-Mitochondrial Ab NEGATIVE Anti-Smooth Muscle Ab <20 HIV 1&2 Ab/P24 Ag 4thGn Nonreactive ULTRASOUND OF THE ABDOMEN 02/21/2025 Findings: Liver measures 14 cm in long axis. Liver is of normal echotexture without focal lesion or intrahepatic biliary ductal dilatation. Common bile duct is dilated to 8.2 mm. However, no discrete intraluminal filling defects seen within the common bile duct. Gallbladder is surgically absent. Increased echotexture throughout the pancreas without discrete mass or pancreatic ductal dilatation. Spleen is unremarkable. There is a 7 mm simple cyst within the left kidney. Kidneys otherwise unremarkable. Atherosclerotic calcification of the abdominal aorta without aneurysmal dilatation. Inferior vena cava is patent. No free fluid. Impression: 1. Likely postcholecystectomy ectasia of the common bile duct. Correlation with the patient's bilirubin level is suggested. 2. Echogenic pancreas is most characteristic of fatty replacement. 3. Subcentimeter simple left renal cyst. Assessment & Plan Assessment & Plan (1) Transaminitis: Comment: Baseline Laboratory Tests 10/22/2203 09:4507:1509:22 Estimated GFR > 60 Total Bilirubin 0.4 AST 51 H ALT 73 H Alkaline Phosphatase 58 TSH 0.71 ROBER Screen NEGATIVE Hepatitis A IgM Ab Nonreactive Hep Bs Antigen Negative Hep Bs Antibody NONREACTIVE Hepatitis C Ab (EIA) Nonreactive Current labs 10/22/2204/09/25 09:4508:35 Ferritin 64 Alpha Fetoprotein 5.1 ROBER Screen NEGATIVE Anti-Mitochondrial Ab NEGATIVE Anti-Smooth Muscle Ab <20 HIV 1&2 Ab/P24 Ag 4thGn Nonreactive it would at some it is all good 2nd highlighted that is exactly people are selling their seeing me how you get to do that and a ULTRASOUND OF THE ABDOMEN 02/21/2025 Findings: Liver measures 14 cm in long axis. Liver is of normal echotexture without focal lesion or intrahepatic biliary ductal dilatation. Common bile duct is dilated to 8.2 mm. However, no discrete intraluminal filling defects seen within the common bile duct. Gallbladder is surgically absent. Increased echotexture throughout the pancreas without discrete mass or pancreatic ductal dilatation. Spleen is unremarkable. There is a 7 mm simple cyst within the left kidney. Kidneys otherwise unremarkable. Atherosclerotic calcification of the abdominal aorta without aneurysmal dilatation. Inferior vena cava is patent. No free fluid. Impression: 1. Likely postcholecystectomy ectasia of the common bile duct. Correlation with the patient's bilirubin level is suggested. 2. Echogenic pancreas is most characteristic of fatty replacement. 3. Subcentimeter simple left renal cyst. Code(s): R74.01 - Elevation of levels of liver transaminase levels Category: Medical (2) Chronic idiopathic constipation: Code(s): K59.04 - Chronic idiopathic constipation Category: Medical (3) History of diverticulitis: Code(s): Z87.19 - Personal history of other diseases of the digestive system Category: Medical (4) History of colonoscopy: Comment: 2009 = TA, 2017 Dr Joy, 2021 WNL repeat 5 years aeb Code(s): Z98.890 - Other specified postprocedural states Category: Surgical Plan SHE HAS SENNA AND COLACE AND FIBER TO USE as needed when her diet interventions for her constipation fail her. Fortunately, she has had no more flares of her diverticulitis. She continues to keep her Augmentin prescription close at hand especially when she traveled in case she had a flare-up and she found this quite reassuring. Her knee surgery went well and she has been managing her constipation despite lack of mobility and oxycodone use. She took a vacation to visit her daughter and it went well! We review her ultrasound and labs and her fatty liver appears quite stable. There was some fatty replacement of the pancreas noted which is not terribly concerning but could indicate that she may develop trouble as she ages with either diabetes or pancreatic insufficiency. However, this is not a certainty and is not of any major concern at this time. Return office visit in 6 months Orders: Orders Comprehensive Met. Panel 5 Months R74.01 - Elevation of levels of liver transaminase levels Coding Level of Care Code Est Pt Level 3 (01024) Diagnoses Transaminitis R74.01 Chronic idiopathic constipation K59.04 History of diverticulitis Z87.19 History of colonoscopy Z98.890
[2025-08-14 09:12] VITALS: BP 124/72; PULSE 76; O2SAT 95; BMI 33.0
--- OUTSIDE RECORDS SUMMARY | 2025-08-14 09:24 | XMS_ITS | Encounter Summary ---
Author Organization [facility] Address [address] [place] [address] Phone Care Team Providers Care Referral Management Liaison Name Role Phone Marcos Rocha TOW CAR DRIVER Primary Care Provider + Naomy Ornelas MD Unavailable [phone] Encounter Details Date Type Department Care Team (Late st Contact Info) Description 04/24/2025 Procedure Pass OR Admitting Dept - Virtual Department [address] [place] [address] Social History Tobacco Use Types Packs/Day Years [...] 1:00 PM EDT Maira Melendez, ROCÍO * Wright Suicide Severity Rating Scale (Screener/Recent Self-Report) Question Answer Date of Assessment Author 1. Wish to be (Past 1 Month) No 025 1:00 PM EDT Maira Melendez, RN 2. Non-Specific Active Suici uvaldo Thoughts (Past 1 Month) No 04/24/2025 1:00 PM EDT Maira Melendez , RN 6. Suicidal Behavior (Lifetime) No 1:00 PM EDMaira Robledo RN documented as of this encounter Plan of Treatment Upcoming Encounters Date Type Department Care Team (Late st Contact Info) Description 08/20/2025 8:00 AM EST Office Visit [address] [address] Juan Bojorquez PA-C [address] [place] [address], [place] [address] Klaus King, PT [address] [place] [address] 08/26/2025 10:45 AM EST Office Visit [address] [address] Juan Bojorquez PA-C [address] [place] [address], [place] [address] Klaus King, PT [address] [place] [address] 09/05/2025 7:30 AM EST Office Visit [address] [address] Juan Bojorquez PA-C [address] [place] [address], [place] [address] Andreina Naranjo PTA [address] [place] [address] 09/12/2025 12:45 PM EST Office Visit [address] [id number] Juan Bojorquez PA-C [address] [place] [address], [place], [place] [id number] MarcellaAndreina hui PTA [address] [place] [address] 09/18/2025 9:00 AM EST Office Visit [address] [address] Juan Bojorquez PA-C [address] [place] [address] [facility], [place] [address] Andreina Naranjo PTA [address] [place] [address] 09/24/2025 12:45 PM EST Office Visit [address] [address] Juan Bojorquez PA-C [address] [place] [address], [place] [address] Andreina Naranjo PTA [address] [place] [address] 10/01/2025 11:45 AM EST Office Visit [address] [address] Juan Bojorquez PA-C [address] [place] [address], [place], [place] [phone] Klaus King, PT [address] [place], [place] [id number] documented as of this encounter Visit Diagnoses Not on filedocumented in this encounter Care Teams Referral Management Liaison Relationship Specialty Start Date End Date Marcos Rocha NP [address] [facility] [place] [address] PCP - General Nurse Practitioner 03/14/23 Naomy Ornelas MD [facility] [place] [address] Insurance Assigned Provider Internal Medicine 03/16/23 documented as of this encounter Additional Source Comments The information contained in this document represents components of the legal health record. It is not the complete legal health record.[facility]
--- OUTSIDE RECORDS SUMMARY | 2025-08-14 09:24 | XMS_ITS | Encounter Summary ---
Author Organization [facility] Address [address] [place] [address] Phone Care Team Providers Care Lacing Presser Name Role Phone Silas Weathers MD Primary Care Provider [phone] Marcos Rocha NP Primary Care Provider + Naomy Ornelas MD Unavailable + [phone] Encounter Details Date Type Department Care Team (Late Contact Info) Description 09/14/2018 Procedure Pass OR Admitting Dept - Virtual Department [address] [place] [address] Social History Tobacco Use Types Packs/Day Years [...] Department Care Team (Late Contact Info) Description 08/20/2025 8:00 AM EST Office Visit [facility] [address] [place] [address] Juan Bojorquez PA-C [address] [place] [address] Orthopedics & Sports Medicine, [facility] [place], [place] [phone] Klaus King, PT [address] [place], [place] [phone] 08/26/2025 10:45 AM EST Office Visit [address] [address] Juan Bojorquez PA-C [address] [place] [address], [place] [address] Klaus King, PT [address] [place] [address] 09/05/2025 7:30 AM EST Office Visit [address] [address] Juan Bojorquez PA-C [address] [place] [address], [place] [address] Andreina Naranjo, CERTIFIED WELDER [address] [place] [address] 09/12/2025 12:45 PM EST Office Visit [address] [address] Juan Bojorquez PA-C [address] [place] [address], [place] [address] Andreina Naranjo, CERTIFIED WELDER [address] [place] [address] 09/18/2025 9:00 AM EST Office Visit [address] [id number] Juan Bojorquez PA-C [address] [place] [address], [place] [address] Andreina Naranjo, CERTIFIED WELDER [address] [place] [address] 09/24/2025 12:45 PM EST Office Visit [address] [id number] Juan Bojorquez PA-C [address] [place] [address], [place] [address] Andreina Naranjo, CERTIFIED WELDER [address] [place] [address] 10/01/2025 11:45 AM EST Office Visit [address] [address] Juan Bojorquez PA-C [address] [place] [address], [place] [address] Klaus King, PT [address] [place], [place] [phone] documented as of this encounter Visit Diagnoses Not on filedocumented in this encounter Care Teams Lacing Presser Relationship Specialty Start Date End Date Silas Weathers MD [address] [place] [address] [place] [address] PCP - General Internal Medicine 06/27/18 03/13/23 Marcos Rocha NP [address] [place] [address] [place] [address] PCP - General Nurse Practitioner 03/14/23 Naomy Ornelas MD [address] [place] [address] [place] [address] Insurance Assigned Provider Internal Medicine 03/16/23 documented as of this encounter Additional Source Comments The information contained in this document represents components of the legal health record. It is not the complete legal health record.[facility]
--- OUTSIDE RECORDS SUMMARY | 2025-08-14 09:24 | XMS_ITS | Patient Health Record ---
Author Organization [facility] [place] Address [address] [facility] [place] [address] Care Team Providers Care Stitcher Standard Machine Name Role Phone Marcos Samuels Primary Care Provider Susanne Austin Unavailable [phone] Allergies Allergen (clinical drug ingredient) Drug/Non Drug [...] Duration: 10 day(s) 07/13/2023 Not-Taking Cranberry Not-Taking Amoxicillin [...] Active Montelukast Sodium A ctive Magnesium Active Ammonium Lactate 12 % 1 application Externally to affected areas of dry skin to feet except for between the toes Twice a day; Duration: 30 days Active Calcium Active Diclofenac Active Immunizations Vaccine [...] Status Risk Notes Problem Acquired hallux valgus (37408571) Hallux valgus (acquired), left foot (M20.12) Active confirmed Problem Localized, primary osteoarthritis of the ankle and/or foot (770263348) Primary osteoarthrit is, right ankle and foot (M19.071) Active confirmed Problem Localized, primary osteoarthritis of the ankle and/or foot (218332075) Primary osteoarthrit is, left ankle and foot (M19.072) Active confirmed Problem Acquired hammer toe of right foot (1173482159744716) Other hammer toe(s) (acquired), right foot (M20.41) Active confirmed Problem Acquired hammer toe of left foot (4845776510134401) Other hammer toe(s) (acquired), left foot (M20.42) [...] Ordered Date Performed Result Body Sit e 06837-[id number] SKIN/TISSUE 08/16/2024 N/A 76938-MPX 09/04/2024 N/A [id number] SKIN/TISSUE 09/20/2024 N/A Encounters Encounter Location Date Provider Diagnosis [address] [address] 08/16/2024 Susanne Garrison Xerosis of skin L85.3 and Skin ulcer of toe of left foot with fat layer exposed L97.522 [facility] [address] [address] 09/04/2024 Susanne Garrison Ingrown nail L60.[address] [address] 09/20/2024 Susanneaugustus Garrison Skin ulcer of toe of right foot with fat layer exposed L97.[address] [address] 10/25/2024 Susanne Garrison Ingrown toenail L60.[address] [address] 09/21/2024 Susanne Garrison [address] [address] 03/11/2025 Susanne Garrison Xerosis of skin L85.[address] [address] 04/17/2025 Susanne Garrison [address] [address] 08/12/2025 Susanne Garrison Xerosis of skin L85.3 [address] [place] [address] 08/12/2025 Susanne Garrison Assessments Encounter Date Diagnosis (ICD Code) Assessment Notes Treatment Notes Treatment Clinical Notes Section Notes 08/16/2024 Xerosis of skin (ICD-10 - L85.3) 08/16/2024 Skin ulcer of toe of left foot with fat layer exposed (ICD-10 - L97.522) Patient Educated with: WOUND CARE INSTRUCTIONS.p df (WOUND CARE INSTRUCTIONS.p df) 09/04/2024 Ingrown nail (ICD-10 - L60.0) 10/25/2024 Ingrown toenail (ICD-10 - L60.0) 03/11/2025 Xerosis of skin (ICD-10 - L85.3) 08/12/2025 Xerosis of skin (ICD-10 - L85.3) 09/20/2024 [...] X ray : Foot, right 3V 07/09/2019 49071-Juep Destruction, 1-14 12/16/2014 36359-Svri Destruction, 1-14 01/16/2015 66784-DWQ 07/31/2024 36010-DSK 09/04/2024 35554-PLVDMKW SKIN/TISSUE 09/20/2024 [id number] SKIN/TISSUE 08/16/2024 Next Appt Details Provider Name:Susanne Freeman padmini, 09/12/2025 08:30:00 AM, [address] [place], [address], Insurance Providers Payer Name Payer Address Payer Phone Subscriber Number Group Number Insured Name Patient Relationship to Insured Coverage Start Date Coverage End Date Medicare [employer] [address] [place] [address] [id number] Radha Jean Self - patient is the insured for Life [address] [place] [phone] [phone] [id number] Radha Jean Self - patient is the [...] 11/1983 left knee replacement 2012 hip surgery-tendon mpxfvo-[id number] an tibial band repair colonoscopy 12/2021
--- OUTSIDE RECORDS SUMMARY | 2025-08-14 09:24 | XMS_ITS | Encounter Summary ---
Author Organization [facility] Address [address] [place] [address] Phone Care Team Providers Care Manager Music Name Role Phone Marcos Rocha NP Primary Care Provider + Naomy Ornelas MD Unavailable [phone] Reason for Visit * Reason Comments Medication Refill Encounter Details Date Type Department Care Team ([facility] [address] Contact Info) Description 06/22/2025 Refill [facility] Orthopedics & Sports Medicine [address] [place] [address] Juan Bojorquez PA-C [address] [place] [address] Orthopedics & Sports Medicine, [place] [address] [email or web address] Medication Refill Social History Tobacco Use Types [...] Description 08/20/2025 8:00 AM EST Office Visit [facility] Services [address] [place] [address] Juan Bojorquez PA-C [facility], [place] [address] Klaus King, PT 4 [place] [address] 08/26/2025 10:45 AM EST Office Visit [address] [address] Juan Bojorquez PA-C [facility], [place] [address] Klaus King, PT 4 [place] [address] 09/05/2025 7:30 AM EST Office Visit [address] [address] Juan Bojorquez PA-C [address] [place] [address], [place] [address] Andreina Naranjo, NET DEVELOPER ARCHITECT [address] [place] [address] 09/12/2025 12:45 PM EST Office Visit [address] [address] Juan Bojorquez PA-C [address] [place] [address], [place], [place] [phone] Andreina Naranjo, NET DEVELOPER ARCHITECT [address] [place] [address] 09/18/2025 9:00 AM EST Office Visit [address] [phone] Juan Bojorquez PA-C [facility], [place] [address] [email or web address] Andreina Naranjo, NET DEVELOPER ARCHITECT 4 [place] [address] [email or web address] 09/24/2025 12:45 PM EST Office Visit [address] [address] Juan Bojorquez PA-C [facility], [place], [place] [phone] [email or web address] Andreina Naranjo, [address] [address] [email or web address] 10/01/2025 11:45 AM EST Office Visit [address] [address] Juan Bojorquez PA-C [address] [place] [address] [phone] Klaus King, PT 4 [place] [address] [email or web address] documented as of this encounter Visit Diagnoses Not on filedocumented in this encounter Care Teams Manager Music Relationship Specialty Start Date End Date Marcos Rocha NP [address] [facility] [place] [address] PCP - General Nurse Practitioner 03/14/23 Naomy Ornelas MD [address] [facility] [address] Insurance Assigned Provider Internal Medicine 03/16/23 documented as of this encounter Additional Source Comments The information contained in this document represents components of the legal health record. It is not the complete legal health record.[facility]
--- OUTSIDE RECORDS SUMMARY | 2025-08-14 09:24 | XMS_ITS | Clinical Summary ---
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 04/24/2025 Mild intermittent asthma without complication Primary hypertension 02/13/2025 Primary osteoarthritis involving multiple joints 02/13/2025 History of total right knee replacement 11/08/19 25 Trochanteric bursitis of both hips 07/05/2018 Trochanteric bursitis of left hip 07/05/2018 Bilateral hip pain 06/12/2018 Resolved Problems Problem Noted Date Diagnosed Date Resolved Date Closed right hip fracture, initial encounter 5 04/26/2025 Pre-op evaluation 02/13/2025 08/08/2025 Avascular necrosis of right patella 11/08/2024 08/08/2025 Encounters Date Type Department Care Team Description 08/13/2025 8:15 AM EST Office Visit [facility] [address] [place] [address] Juan Bojorquez, Andreina Broussard, MARKET STALL VENDOR Acute postoperative pain of right knee (Primary Dx) 08/08/2025 8:30 AM EST Office Visit [facility] Orthopedics & Sports Medicine [address] [place] [address] Michael Holland MD Gait abnormality (Primary Dx); Status post revision of total replacement of right knee; Tear of gluteus medius tendon, sequela; Other secondary scoliosis, lumbosacral region; Absence of patella 07/19/2025 3:15 PM EDT Office Visit [address] [address] Juan Bojorquez PA-C Jarjoura, Nicholas James, PT Acute postoperative pain of right knee (Primary Dx) 07/10/2025 9:45 AM EDT Office Visit [address] [address] Juan Bojorquez PA-C Palermo, Christine, MARKET STALL VENDOR Acute postoperative pain of right knee (Primary Dx) 07/10/2025 Episode Documentation Update [facility] [address] [place] [address] Amairani Hernandez 07/08/2025 9:15 AM EDT Office Visit [address] [address] Juan Bojorquez PA-C Jarjoura, Nicholas James, PT Acute postoperative pain of right knee (Primary Dx) 07/04/2025 10:15 AM EDT Office Visit [address] [address] Juan Bojorquez PA-C Jarjoura, Nicholas James, PT Acute postoperative pain of right knee (Primary Dx) 06/26/2025 1:30 PM EDT Office Visit [address] [address] Juan Bojorquez PA-C Palermo, Christine, MARKET STALL VENDOR Acute postoperative pain of right knee (Primary Dx) 06/22/2025 Refill [facility] Orthopedics & Sports Medicine [address] [place] [address] Juan Bojorquez PA-C Medication Refill 06/21/2025 8:15 AM EDT Office Visit [address] [address] Juna Bojorquez PA-C Jarjoura, Nicholas James, PT Acute postoperative pain of right knee (Primary Dx) 06/18/2025 2:15 PM EDT Office Visit [address] [address] Juan Bojorquez PA-C Palermo, Christine, MARKET STALL VENDOR Acute postoperative pain of right knee (Primary Dx) 06/14/2025 8:15 AM EDT Office Visit [address] [address] Juan Bojorquez PA-C Jarjoura, Nicholas James, PT Acute postoperative pain of right knee (Primary Dx) 06/11/2025 8:00 AM EDT Office Visit [address] [address] Juan Bojorquez PA-C Jarjoura, Nicholas James, PT Acute postoperative pain of right knee (Primary Dx) 06/06/2025 9:30 AM EDT Office Visit [facility] Orthopedics & Sports Medicine [address] [place] [address] Juan Bojorquez PA-C Aftercare following joint replacement surgery (Primary Dx) 06/06/2025 9:29 AM EDT - 06/06/2025 11:59 PM EDT Hospital Encounter [address] [address] Juan Bojorquez PA-C Discharge Disposition: Home or Self Care 06/06/2025 8:15 AM EDT Office Visit [address] [address] Juan Bojorquez PA-C Palermo, Christine, MARKET STALL VENDOR Acute postoperative pain of right knee (Primary Dx) 06/04/2025 8:15 AM EDT Office Visit [address] [address] Juan Bojorquez PA-C Palermo, Christine, MARKET STALL VENDOR Acute postoperative pain of right knee (Primary Dx) 05/30/2025 Plan of Care Documentation [facility] [address] [place] [address] 05/28/2025 8:00 AM EDT Office Visit [facility] [address] [place] [address] Juan Bojorquez, DAVID King, Klaus Hernandez, PT Acute postoperative pain of right knee (Primary Dx) 05/27/2025 11:00 AM EDT [facility] [address] [place] [phone] Samina Francis, PT PT OASIS DISCHARGE VISIT 05/24/2025 12:00 PM EDT Home Care Visit [facility] [address] [place] [phone] Samina Francis, PT PT HOME VISIT 05/21/2025 12:00 PM EDT Home Care Visit [facility] [address] [place] [phone] Samina Francis, PT PT HOME VISIT 05/17/2025 11:30 AM EDT Home Care Visit [facility] [address] [place] [phone] Samina Francis, PT PT HOME VISIT from Last 3 Months Family History * [...] Description 08/20/2025 8:00 AM EST Office Visit [address] [phone] Juan Bojorquez PA-C [address] [place] [address] [email or web address] Klaus King, PT 4 [place] [address] 08/26/2025 10:45 AM EST Office Visit [address] [phone] Juan Bojorquez PA-C [address] [place] [address] [phone] [email or web address] Klaus King, PT [address] [place], [place] [phone] 09/05/2025 7:30 AM EST Office Visit [address] [phone] Juan Bojorquez PA-C [address] [place] [address] [phone] [email or web address] Andreina Naranjo PTA 4 [place], [place] [phone] 09/12/2025 12:45 PM EST Office Visit [address] [address] Juan Bojorquez PA-C [address] [place] [address], [place] [address] Andreina Naranjo PTA [address] [place] [address] 09/18/2025 9:00 AM EST Office Visit [address] [address] Juan Bojorquez PA-C [address] [place] [address] Andreina Naranjo PTA [address] [place] [address] 09/24/2025 12:45 PM EST Office Visit [address] [address] Juan Bojorquez PA-C [address] [place] [address] Andreina Naranjo PTA [address] [place] [address] 10/01/2025 11:45 AM EST Office Visit [address] [phone] Juan Bojorquez PA-C [address] [place] [address], [place] [address] Klaus King, PT [address] [place] [address] Health Maintenance Due Date Last Done Comments [...] on patient's age to complete this topic IPV VACCINES Aged Out No longer eligi ble based on patient's age to complete this topic MENINGOCOCCAL VACCINES (ACWY) Aged Out No longer eligible based on patient's age to complete this topic MENINGOCOCCAL VACCINES (B) Aged Out N o longer eligible based on patient's age to complete this topic Medical Devices Implanted Type Area Sales Administration Manager Device Identifier Shelf Expiration Date Model / Serial / Lot Knee Insert Tibial Implant Bar Locking Modular 15b - [id number] Implanted:Qty: 1 on 04/24/2025 by Michael Holland MD at [facility] [employer] Right: Knee [employer] 08/22/2034 [id number] / / [id number] Bilateral Knee Replacements [place] Suture 4.5mm Arthroscopy Reelx Stt Peek Stainless Steel Core Knotless Sharp Tip Expandable Sterile Bx/5ea - [id number] Implanted:Qty: 2 on 09/14/2018 by Chema Blankenship DO at [facility] Right: Hip [employer] 05/07/2020 [id number] / / [id number] Knee Bearing 16x63 To 67mm Insert Vanguard Posterior Stabilized Plus Medial Lateral Anterior - [id number] Implanted:Qty: 1 on 04/24/2025 by Michael Holland MD at [facility] Right: Knee [employer] 03/19/2028 [id number] / / [id number] Procedures Procedure Name Priority Date/Time Associated Diagnosis Comments XR KNEE 3 VIEW (RIGHT) Routine 06/06/2025 9:36 AM EDT Aftercare following joint replacement surgery AMB REFERRAL TO [facility] PHYSICAL THERAPY Routine 05/30/2025 3:01 PM EDT BASIC METABOLIC PANEL (BMP) Timed 04/26/2025 6:33 AM EDT from Last 3 Months or Most Recently Relevant to Health Maintenance Results * XR KNEE 3 VIEW (RIGHT) (06/06/2025 9:36 AM EDT) Narrative SYSTEMGENERATED, DOCUMENTATION - 06/06/2025 9:36 AM EDT This image report has been auto-finalized and has not been read by a Radiologist. Interpretation has been included in the provider encounter note for this date of service. us Juan Bojorquez PA-C IMG XR LOWER EXTREMITY Fi nal Result * Ambulatory referral to [facility] Physical Therapy (05/30/2025 3:01 PM EDT) Other us Juan Bojorquez PA-C [facility]B [facility] REFERRALS Final R esult * (ABNORMAL) Basic metabolic panel (04/26/2025 6:33 AM EDT) SODIUM 136 133 - 146 mmol/L [facility] CHLORIDE 100 96 - 108 mmol/L [facility] POTASSIUM 3.6 3.3 - 5.1 mmol/L [facility] CO2 28 21 - 35 mmol/L [facility] BUN 14 6 - 19 mg/dL [facility] CREATININE 1.10 0.5 - 1.5 mg/dL [facility] GLUCOSE 112(H) 70 - 99 mg/dL [facility] CALCIUM 8.8 8.4 - 10.3 mg/dL [facility] EGFR 55(L) >59 mL/min/1.7 3m2 [facility] Comment:Estimated glomerular filtration rate calculated using the CKD-EPI refit equation. ANION GAP 12 10 - 20 mmol/L [facility] Blood 04/26/2025 6:33 AM EDT 04/26/2025 6:43 AM EDT us Juan Bojorquez PA-C LAB BLOOD BKR ORDERABLES Final Result Performing Organization Address City/State/[facility] Co de Phone Number [facility] [address] [place] [address] from Last 3 Months or Most Recently Relevant to Health Maintenance Insurance MEDICARE PART A & B Member Subscriber Plan / Payer (Ef fective 2024-Present) Name:Radha Jean Member ID:[id number] Relation to Subscriber:Self Name:Radha Jean Subscriber ID:[id number] Payer ID:[id number] Group ID:Not on file Type:Medicare Address: [employer] [facility]. [address] [place] [phone] FOR LIFE MEDICARE SUPPLEMENT Member Subscriber Plan / Payer (Ef fective 2023-) Name:Karoline Jeanire Relation to Subscriber:Self Name:Radha Jean Payer ID:[id number] (NAIC) Group ID:Not on file Type:[facility] Address: [place] [phone] MEDICARE PART A & B FOR LIFE MEDICARE SUPPLEMENT MEDICARE PART A & B MEDICARE PART A & B MEDICARE PART A & B MEDICARE SUPPLEMENT MEDICARE PART A & B MEDICARE PART A & B MEDICARE SUPPLEMENT MEDICARE PART A & B FOR LIFE MEDICARE SUPPLEMENT MEDICARE PART A & B FOR LIFE MEDICARE SUPPLEMENT Advance Directives For more information, please contact: [phone] (9AM - 5PM [facility], Tuesday-Tuesday) * Full Code (Latest Code Status on File) Date Activated Date Inactivated Comments 04/24/2025 6:07 AM Question Answer Comments Code Status Confirmed With: Patient * Full Code (Presumed) Date Activated Date Inactivated Comments 09/14/2018 11:41 AM 09/15/2018 4:14 AM Care Teams Bleacher [employer] Relationship Specialty Start Date End Date Marcos Rocha NP [address] [place] [address] [place] [address] PCP - General Nurse Practitioner 03/14/23 Noamy Ornelas MD [address] [place] [address] [place] [address] Insurance Assigned Provider Internal Medicine 03/16/23 Additional Source Comments The information contained in this document represents components of the legal health record. It is not the complete legal health record.[facility]
--- OUTSIDE RECORDS SUMMARY | 2025-08-14 09:24 | XMS_ITS | Encounter Summary ---
Author Organization [facility] Address [address] [place] [address] Phone Care Team Providers Care Finance Clerk Name Role Phone Marcos Rocha NP Primary Care Provider + Naomy Ornelas MD Unavailable [phone] Encounter Details Date Type Department Care Team (Latest Contact Info) Description 07/09/2024 Ancillary Orders [facility] Orthopedics & Sports Medicine [address] [place] [address] Sharath Zepeda PA-C [address] [place] [address] Orthopedics & Sports Medicine, [facility] [place] [address] [email or web address] Bilateral hip pain (Primary Dx); Bilateral [...] Description 08/20/2025 8:00 AM EST Office Visit [address] [address] Juan Bojorquez PA-C 4 [facility], [place] [address] Klaus King, PT 4 [place] [address] 08/26/2025 10:45 AM EST Office Visit [address] [address] Juan Bojorquez PA-C [address] [place] [address], [place] [address] Klaus King, PT 4 [place] [address] 09/05/2025 7:30 AM EST Office Visit [address] [address] Juan Bojorquez PA-C [address] [place] [address], [place], [place] [phone] Andreina Naranjo PTA [address] [place] [address] 09/12/2025 12:45 PM EST Office Visit [address] [phone] Juan Bojorquez PA-C [address] [place] [address], [place], [place] [phone] LavonAndreina, DEBONE PROCESSING SUPERVISOR [address] [place] [address] 09/18/2025 9:00 AM EST Office Visit [address] [phone] Juan Bojorquez PA-C [address] [place] [address] [facility], [place], [place] [phone] Andreina Naranjo, [address] [phone] 09/24/2025 12:45 PM EST Office Visit [address] [phone] Juan Bojorquez PA-C [address] [place], [place] [address]s Sports [facility], [place], [place] [phone] Andreina Naranjo, [address] [phone] 10/01/2025 11:45 AM EST Office Visit [address] [phone] Juan Bojorquez PA-C [address] [place], [place] [address]s [facility], [place], [place] [phone] Klaus King, PT 4 [place], [place] [phone] documented as of this encounter Results * [...] leg documented in this encounter Care Teams Finance Clerk Relationship Specialty Start Date End Date Marcos Rocha NP [address] [facility] [place] [address] PCP - General Nurse Practitioner 03/14/23 Naomy Ornelas MD [address] [facility] [place] [address] Insurance Assigned Provider Internal Medicine 03/16/23 documented as of this encounter Additional Source Comments The information contained in this document represents components of the legal health record. It is not the complete legal health record.[facility]
--- OUTSIDE RECORDS SUMMARY | 2025-08-14 09:24 | XMS_ITS | Encounter Summary ---
Author Organization [facility] Address [address] [place] [address] Phone Care Team Providers Care Harpsichord Maker Name Role Phone Kelsea De Luna ANIMAL RIDE MANAGER Primary Care Provider [phone] Silas Weathers MD Primary Care Provider [phone] Marcos Rocha NP Primary Care Provider + Naomy Ornelas MD Unavailable Encounter Details Date Type Department Care Team (Late Contact Info) Description 06/14/2018 Procedure Pass [address] [place] [address] Social History Tobacco Use Types Packs/Day Years [...] Description 08/20/2025 8:00 AM EST Office Visit [facility] [address] [place] [address] [phone] Juan Bojorquez PA-C [address] [place] [address] Orthopedics & Sports Medicine, [facility]. [place], [place] [phone] Klaus King, PT 4 [place] [address] 08/26/2025 10:45 AM EST Office Visit [address] [address] Juan Bojorquez PA-C 4 [facility], [place] [address] Klaus King, PT 4 [place] [address] 09/05/2025 7:30 AM EST Office Visit [address] [address] Juan Bojorquez PA-C [address] [place] [address], [place] [address] Andreina Naranjo PTA [address] [place] [address] 09/12/2025 12:45 PM EST Office Visit [address] [address] Juan Bojorquez PA-C [address] [place] [address], [place] [address] Andreina Naranjo PTA [address] [place] [address] 09/18/2025 9:00 AM EST Office Visit [address] [phone] Juan Bojorquez PA-C [address] [place] [address], [place], [place] [phone] Andreina Naranjo, SEWER CONNECTOR [address] [place] [address] 09/24/2025 12:45 PM EST Office Visit [address] [phone] Juan Bojorquez PA-C [address] [place] [address] [facility], [place] [address] Marcella Andreina [address] [address] [email or web address] 10/01/2025 11:45 AM EST Office Visit [address] [phone] Juan Bojorquez PA-C [address] [place] [address] Sports [facility], [place], [place] [phone] Klaus King, PT 4 [place], [place] [phone] [email or web address] documented as of this encounter Visit Diagnoses Not on filedocumented in this encounter Care Teams Harpsichord Maker Relationship Specialty Start Date End Date Kelsea De Luna NP [address] [place] [address] [place] [address] [email or web address] PCP - General 07/21/17 06/26/18 Silas Weathers MD [address] [place] [address] [place] [address] PCP - General Internal Medicine 06/27/18 03/13/23 Marcos Rocha NP [address] [facility] [place] [address] PCP - General Nurse Practitioner 03/14/23 Naomy Ornelas MD [address] [facility] [place] [address] Insurance Assigned Provider Internal Medicine 03/16/23 documented as of this encounter Additional Source Comments The information contained in this document represents components of the legal health record. It is not the complete legal health record.[facility]
--- OUTSIDE RECORDS SUMMARY | 2025-08-14 09:24 | XMS_ITS | Encounter Summary ---
Author Organization [facility] Address [address] [place] [address] Phone Care Team Providers Care Water Jet Operator Name Role Phone Kelsea De Luna POLICY ADVISOR Primary Care Provider [phone] Silas Weathers MD Primary Care Provider [phone] Marcos Rocha NP Primary Care Provider + Naomy Ornelas MD Unavailable Encounter Details Date Type Department Care Team (Late Contact Info) Description 06/14/2018 Procedure Pass [address] [place] [address] Social History Tobacco Use Types Packs/Day Years [...] Description 08/20/2025 8:00 AM EST Office Visit [facility] [address] [place] [address] [phone] Juan Bojorquez PA-C [address] [place] [address] Orthopedics & Sports Medicine, [facility]. [place], [place] [phone] Klaus King, PT 4 [place] [address] 08/26/2025 10:45 AM EST Office Visit [address] [address] Juan Bojorquez PA-C 4 [facility], [place] [address] Klaus King, PT 4 [place] [address] 09/05/2025 7:30 AM EST Office Visit [address] [address] Juan Bojorquez PA-C [address] [place] [address], [place] [address] Andreina Naranjo PTA [address] [place] [address] 09/12/2025 12:45 PM EST Office Visit [address] [address] Juan Bojorquez PA-C [address] [place] [address], [place] [address] Andreina Naranjo PTA [address] [place] [address] 09/18/2025 9:00 AM EST Office Visit [address] [phone] Juan Bojorquez PA-C [address] [place] [address], [place], [place] [phone] Andreina Naranjo, DISTRIBUTOR SALES CONSULTANT [address] [place] [address] 09/24/2025 12:45 PM EST Office Visit [address] [phone] Juan Bojorquez PA-C [address] [place] [address] [facility], [place] [address] Marcella Andreina [address] [address] [email or web address] 10/01/2025 11:45 AM EST Office Visit [address] [phone] Juan Bojorquez PA-C [address] [place] [address] Sports [facility], [place], [place] [phone] Klaus King, PT 4 [place], [place] [phone] [email or web address] documented as of this encounter Visit Diagnoses Not on filedocumented in this encounter Care Teams Water Jet Operator Relationship Specialty Start Date End Date Kelsea De Luna NP [address] [place] [address] [place] [address] [email or web address] PCP - General 07/21/17 06/26/18 Silas Weathers MD [address] [place] [address] [place] [address] PCP - General Internal Medicine 06/27/18 03/13/23 Marcos Rocha NP [address] [place] [address] PCP - General Nurse Practitioner 03/14/23 Naomy Ornelas MD [address] [place] [address] Insurance Assigned Provider Internal Medicine 03/16/23 documented as of this encounter Additional Source Comments The information contained in this document represents components of the legal health record. It is not the complete legal health record.[facility]
== END 2025-08-14 09:58 | disposition home or self-care (01) ==
LOC: HO.HGI 08:54
PROVIDERS: PCP Nurse Practitioner Family; Visit Provider Nurse Practitioner
DX: R74.01 Elevation of levels of liver transaminase levels (principal); K59.04 Chronic idiopathic constipation; Z87.19 Personal history of other diseases of the digestive system; Z98.890 Other specified postprocedural states
CPT/HCPCS: 99213

== ENCOUNTER → 2025-08-14 08:53 | Outpatient (BNVA) | payer MEDICARE, OTHER, SELFPAY | PROVIDERS: PCP Nurse Practitioner Family; Visit Provider Nurse Practitioner | DX: K59.04 Chronic idiopathic constipation (principal); R74.01 Elevation of levels of liver transaminase levels; N28.1 Cyst of kidney, acquired; Z87.19 Personal history of other diseases of the digestive system | CPT/HCPCS: 99212 ==

== ENCOUNTER 2025-08-19 09:21 | Outpatient (AMB) | payer MEDICARE, OTHER, SELFPAY ==
--- NOTE | 2025-08-19 09:26 | MHC.OFFVISWM ---
VS Expanded 08/19/25 09:38 BP 154/71 H Blood Pressure Location Rt brachial Blood Pressure Position Sitting Pulse 71 Pulse Source Pulse Oximeter Temp 96.6 F L Temperature Source Temporal Artery Scan Pulse Oximetry 96 Oxygen Delivery Method Room Air Intake Visit Reasons: OV F/U MWL Allergies lactose Allergy (Unknown, Verified 08/19/25 09:39) lactose intolerant GI upset sulfamethoxazole Allergy (Unknown, Verified 08/19/25 09:39) vomiting tizanidine Allergy (Verified 08/19/25 09:39) Vomiting doxycycline Adverse Reaction (Severe, Verified 08/19/25 09:39) Diarrhea Medication List - Last Reconciled 08/19/25 by BRENDA Cooley albuterol sulfate 90 mcg/actuation 2 puffs inhalation Q4-6H PRN albuterol sulfate 2.5 mg (3 mL) inhalation QID PRN bupropion HCl XL 300 mg PO QAM calcium carbonate (Calcium 600) 600 mg PO BID 90 days celecoxib 100 mg PO BID cholecalciferol (vitamin D3) 25 mcg PO Q OTHER DAY coenzyme Q10 100 mg PO DAILY cyclobenzaprine 10 mg PO DAILY PRN diclofenac potassium 50 mg PO BID PRN 30 days docusate sodium (Colace) 100 mg PO BID fluticasone propion-salmeterol 500-50 mcg/dose (Wixela Inhub) 1 ea PO BID PRN gabapentin 1,200 mg (2 x 600 mg) PO DAILY 60 days levothyroxine 125 mcg PO QAM 90 days loratadine 10 mg PO DAILY losartan 25 mg PO DAILY lutein 40 mg PO DAILY magnesium 250 mg PO DAILY metoprolol succinate ER 25 mg PO DAILY montelukast 10 mg PO DAILY 90 days multivitamin 1 tab PO DAILY psyllium husk (Metamucil) 2 tsp PO DAILY PRN rosuvastatin 20 mg PO BEDTIME 90 days sennosides (senna) 17.2 mg (2 x 8.6 mg) PO BEDTIME 30 days sumatriptan succinate (Imitrex) 25 mg PO Q2-4H PRN 10 days tiotropium bromide (Spiriva with HandiHaler) 1 cap inhalation DAILY PRN tramadol 50 mg PO DAILY PRN vit C-E-zinc wf-qkct-pdz-zeax 250 mg-200 unit -12.5 mg-1 mg (ICaps AREDS2) 1 cap PO DAILY HPI Comments Details: Pt presents in followup for MWL, visit #12. Starting weight: 203 Weight at last visit: 194 Weight today: 195 Total weight change since starting program: -7lb Had surgery April 24 for kneecap reconstruction. Has been sedentary since then. Went to [place] for 3 weeks. Going to PT which is helping. Tried to do a lot of meal prep before surgery which helped but this has run out. Ended up having a diverticulitis attack. Current meal plan: breakfast- Pure protein shake with half scoop (12.5g), collagen (9g), greens powder, metamucil lunch- 4 forks protein (2 eggs or egg whites, cottage cheese, or ukrainian yogurt) with fruit or veg- was having cottage cheese with peaches often snack- Pure protein bar dinner- 6 forks protein with salad or veg after dinner may have sugar free fudgesicle has been having some fruit as midmorning snack Exercise: swimming 2x/week, also joined the [facility] can use recumbent bike or recumbent stepper limited in walking aerobics, not allowed to put pressure on knee also has a cubii - under desk elliptical, will ask about this [facility], [facility] Medical History (Updated 08/14/25 @ 09:39 by NELY Rob) Elevated liver enzymes Encounter for medication monitoring Polyarticular osteoarthritis History of cigarette smoking Encounter for annual wellness visit (AWV) in Medicare patient Abdominal pain Rash Contact dermatitis Upper respiratory tract infection Impacted cerumen, bilateral Fatigue Dietary counseling Screening for cervical cancer Physical exam Tubular adenoma of colon Diverticular disease Acute diverticulitis Macular degeneration Seborrheic keratosis Dyslipidemia Depression Asthma COPD (chronic obstructive pulmonary disease) HTN (hypertension) Hypothyroid Fibromyalgia Lumbar spondylosis Surgical History History of colonoscopy Hx laparoscopic cholecystectomy History of surgery H/O breast biopsy History of hysterectomy History of knee replacement procedure of right knee History of knee replacement procedure of left knee Family History Father Unknown family medical history Mother Unknown family medical history Social History Household Members: Spouse Housing: House Do you presently have visiting nurse or other home services: No Alcohol intake: never Patient Tobacco Use Status: Never used Tobacco e-Cigarette/Vaping Use: Never Used Second Hand Smoke Exposure: No Advance Directives Date on File: 01/08/22 service: No Current occupational status: disabled Cognitive needs: No Hearing needs: No Vision needs: No Physical Exam Vital Signs: Last Vital Signs Temp 96.6 F L 08/19/25 09:38 Pulse 71 08/19/25 09:38 BP 154/71 H 08/19/25 09:38 Pulse Ox 96 08/19/25 09:38 Oxygen Delivery Method Room Air 08/19/25 09:38 Assessment & Plan Assessment & Plan (1) Obesity: Code(s): E66.9 - Obesity, unspecified Category: Medical Plan Pt will restart high protein meal plan as above. Discussed avoiding any food options that are not protein, fruit or vegetables. She plans to ask about increasing activity with ortho. She would like to resume LS videos sitting in a chair. Will also give Sit to be Fit video info. RTC in December.
[2025-08-19 09:38] VITALS: BP 154/71; PULSE 71; TEMP 35.9; O2SAT 96
== END 2025-08-19 10:14 | disposition home or self-care (01) ==
LOC: HO.HBS 09:22
PROVIDERS: PCP Nurse Practitioner Family; Visit Provider Physician Assistant Surgical
DX: E66.9 Obesity, unspecified (principal); Z68.33 Body mass index [BMI] 33.0-33.9, adult
CPT/HCPCS: 99213; G2211

== ENCOUNTER → 2025-08-19 09:21 | Outpatient (BNVA) | payer MEDICARE, OTHER, SELFPAY | PROVIDERS: PCP Nurse Practitioner Family; Visit Provider Physician Assistant Surgical | DX: E66.9 Obesity, unspecified (principal) | CPT/HCPCS: 99212 ==

== ENCOUNTER 2025-08-27 07:16 | Outpatient (REF) | payer MEDICARE, OTHER, SELFPAY ==
--- OUTSIDE RECORDS SUMMARY | 2025-08-26 10:45 | XMS_ITS | Encounter Summary ---
Author Organization [facility] Address [address] [place] [address] Phone Care Team Providers Care Pump Servicer Supervisor Name Role Phone Marcos Rocha FLUE GAS ANALYST Primary Care Provider + Naomy Ornelas MD Unavailable + [phone] Reason for Visit * Physical Therapy (Within 2 weeks) - Authorized Specialty Diagnoses / Procedures Referred By Bi hou Referred To Contact Physical Therapy Diagnoses right TKA revision, patellectomy Juan Bojorquez PA-C Phone: tel: fax: [email or web address] [facility] [address] [place] [address] Phone: tel: Referral ID Status Reason Start Date Expiration Date V isits Requested Visits Authorized [id number] Authorized 04/02/2025 04/02/2026 99 99 Encounter Details Date Type Department Care Team (Latest Contact Info) Description 08/26/2025 10:45 AM EST Office Visit [facility] Rehabilitation Services [address] [place] [address] [phone] Juan Bojorquez PA-C [address] [place] [address] Orthopedics & Sports Medicine, [facility]. [place], [place] [phone] [email or web address] Klaus Puente, PT [address] [place], [place] [phone] [email or web address] Acute postoperative pain of right knee [...] Physical Therapy. Referring MD: Juan Bojorquez PA-C [address] [place] [address] Orthopedics & Sports Medicine, [place] [address] Diagnosis: Acute postoperative pain of right knee [...] one recent instance on Friday 07/06) OUTCOME (Recreational Specialist): Within 6 weeks the pt will demonstrate: [...] set + SLR x10 [x] Supine: SAQ [id number] holds [x] Supine: piriformis stretch x30sec each side [x] Supine: LTR [id number] each direction [x] Supine: SKC x30sec each [...] Home Exercise Program: Access Code: [email or web address] URL: [email or web address] Date: 08/26/2025 Prepared by: Klaus King Exercises [...] ready ice and compression Klaus King, [place] [id number] documented in this encounter Plan of Treatment Upcoming Encounters Date Type Department Care Team (Late st Contact Info) Description 09/05/2025 7:30 AM EST Office Visit [address] [address] Juan Bojorquez PA-C [address] [place] [address] Orthopedics Sports [facility], [place] [address] [email or web address] Andreina Naranjo PTA [address] [place] [phone] [email or web address] 09/12/2025 12:45 PM EST Office Visit [address] [address] Juan Bojorquez PA-C [address] [place] [address] Orthopedics Sports [facility], [place] [address] [email or web address] Andreina Naranjo PTA [address] [place] [phone] [email or web address] 09/18/2025 9:00 AM EST Office Visit [address] [address] Juan Bojorquez PA-C [address] [place] [address] Orthopedics Sports Medicine, [place] [address] [email or web address] Andreina Naranjo, COMPLIANCE ASSISTANT [address] [place] [address] [email or web address] 09/24/2025 12:45 PM EST Office Visit [facility] Services [address] [place] [phone] Juan Bojorquez PA-C [address] [facility] Sports [facility], [place] [address] [email or web address] Andreina Naranjo, COMPLIANCE ASSISTANT [address] [place] [address] [email or web address] 10/01/2025 11:45 AM EST Office Visit [address] [address] Juan Bojorquez PA-C [address] [place], [place] [address]s Sports [facility], [place], [place] [phone] [email or web address] Klaus King, PT [address] [place] [address] documented as of this encounter Visit Diagnoses Diagnosis Acute postoperative pain of right knee- Primary documented in this encounter Care Teams Pump Servicer Supervisor Relationship Specialty Start Date End Date Marcos Rocha NP [address] [place] [address] PCP - General Nurse Practitioner 03/14/23 Naomy Ornelas MD [address] [place] [address] Insurance Assigned Provider Internal Medicine 03/16/23 documented as of this encounter Additional Source Comments The information contained in this document represents components of the legal health record. It is not the complete legal health record.[facility]
--- OUTSIDE RECORDS SUMMARY | 2025-08-27 07:20 | XMS_ITS | Clinical Summary ---
Author Organization [facility] Address [address] [place] [address] Phone Care Team Providers Care Cell Pourer Name Role Phone Marcos Rocha NP Primary Care Provider + Naomy Ornelas MD Unavailable [phone] Allergies Active Allergy Reactions Criticality Noted Date [...] Encounters Date Type Department Care Team Description 08/26/2025 10:45 AM EST Office Visit [facility] Services [address] [place] [address] Juan Bojorquez, Klaus Lee, PT Acute postoperative pain of right knee (Primary Dx) 08/20/2025 8:00 AM EST Office Visit [address] [address] Juan Bojorquez PA-C Jarjoura, Nicholas James, PT Acute postoperative pain of right knee (Primary Dx) 08/13/2025 8:15 AM EST Office Visit [address] [address] Juan Bojorquez PA-C Palermo, Christine, LEGAL INTERN Acute postoperative pain of right knee (Primary Dx) 08/08/2025 8:30 AM EST Office Visit [facility] Orthopedics & Sports Medicine [address] [place] [address] Michael Holland MD Gait abnormality (Primary Dx); Status post revision of total replacement of right knee; Tear of gluteus medius tendon, sequela; Other secondary scoliosis, lumbosacral region; Absence of patella 07/19/2025 3:15 PM EDT Office Visit [address] [address] Juan Bojorquez PA-C Jarjoura, Nicholas James, PT Acute postoperative pain of right knee (Primary Dx) 07/10/2025 9:45 AM EDT Office Visit [address] [address] Juan Bojorquez PA-C Palermo, Christine, LEGAL INTERN Acute postoperative pain of right knee (Primary Dx) 07/10/2025 Episode Documentation [facility] [address] [place] [phone] Amairani Hernandez 07/08/2025 9:15 AM EDT Office Visit [address] [address] Juan Bojorquez PA-C Jarjoura, Nicholas James, PT Acute postoperative pain of right knee (Primary Dx) 07/04/2025 10:15 AM EDT Office Visit [address] [address] Juan Bojorquez PA-C Jarjoura, Nicholas James, PT Acute postoperative pain of right knee (Primary Dx) 06/26/2025 1:30 PM EDT Office Visit [address] [address] Juan Bojorquez PA-C Palermo, Christine, LEGAL INTERN Acute postoperative pain of right knee (Primary Dx) 06/22/2025 Refill [facility] Orthopedics & Sports Medicine [address] [place] [address] Juan Bojorquez PA-C Medication Refill 06/21/2025 8:15 AM EDT Office Visit [address] [address] Juan Bojorquez PA-C Jarjoura, Nicholas James, PT Acute postoperative pain of right knee (Primary Dx) 06/18/2025 2:15 PM EDT Office Visit [address] [address] Juan Bojorquez PA-C Palermo, Christine, LEGAL INTERN Acute postoperative pain of right knee (Primary Dx) 06/14/2025 8:15 AM EDT Office Visit [address] [address] Juan Bojorquez PA-C Jarjoura, Nicholas James, PT Acute postoperative pain of right knee (Primary Dx) 06/11/2025 8:00 AM EDT Office Visit [address] [address] Juan Bojorquez PA-C Jarjoura, Nicholas James, PT Acute postoperative pain of right knee (Primary Dx) 06/06/2025 9:30 AM EDT Office Visit [facility] Orthopedics & Sports Medicine [address] [place] [address] Juan Bojorquez PA-C Aftercare following joint replacement surgery (Primary Dx) 06/06/2025 9:29 AM EDT - 06/06/2025 11:59 PM EDT Hospital Encounter [address] [address] Juan Bojorquez PA-C Discharge Disposition: Home or Self Care 06/06/2025 8:15 AM EDT Office Visit [facility] [address] [place] [address] Juan Bojorquez PA-C Palermo, Christine, LEGAL INTERN Acute postoperative pain of right knee (Primary Dx) 06/04/2025 8:15 AM EDT Office Visit [facility] Services [address] [place] [address] Juan Bojorquez PA-C Palermo, Christine, LEGAL INTERN Acute postoperative pain of right knee (Primary Dx) 05/30/2025 Plan of Care Documentation [facility] [address] [place] [address] 05/28/2025 8:00 AM EDT Office Visit [address] [address] Juan Bojorquez PA-C Jarjoura, Nicholas James, PT Acute postoperative pain of right knee (Primary Dx) 05/27/2025 11:00 AM EDT Home Care Visit [facility] [address] [place] [address] Samina Francis, PT PT OASIS DISCHARGE VISIT from Last 3 Months Family History [...] Description 09/05/2025 7:30 AM EST Office Visit [address] [address] Juan Bojorquez PA-C [address] [place] [address] Orthopedics Sports [facility], [place] [address] Andreina Naranjo PTA [address] [place] [address] 09/12/2025 12:45 PM EST Office Visit [address] [address] Juan Bojorquez PA-C [address] [place] [address], [place] [address] Andreina Naranjo PTA [address] [place] [address] 09/18/2025 9:00 AM EST Office Visit [address] [address] Juan Bojorquez PA-C [address] [place] [address], [place] [address] Andreina Naranjo [address] [address] 09/24/2025 12:45 PM EST Office Visit [address] [phone] Juan Bojorquez PA-C 4 [facility] [place], [place] [phone] [email or web address] Andreina Naranjo, LEGAL INTERN 4 [place], [place] [phone] [email or web address] 10/01/2025 11:45 AM EST Office Visit [facility] 4 [place], [place] [phone] Juan Bojorquez PA-C 4 [facility] Orthopedics Sports Medicine, [place] [address] [email or web address] Klaus King, PT 4 [place], [place] [phone] [email or web address] Health Maintenance Due Date Last Done Comments [...] 08/05/2021, Additional history exists COVID-19 VACCINE ( - season) 2025 10/06/2022, 08/05/2021, 12/24/2020, Additional history [...] this topic Medical Devices Implanted Type Area Elephant Keeper Device Identifier Shelf Expiration Date Model / Serial / Lot Knee Insert Tibial Implant Bar Locking Modular 15b - [id number] Implanted:Qty: 1 on 04/24/2025 by Michael Holland MD at [facility] Right: Knee [employer] 08/22/2034 [id number] / / [id number] Bilateral Knee Replacements [employer] [place] Suture 4.5mm Arthroscopy Reelx Stt Peek Stainless Steel Core Knotless Sharp Tip Expandable Sterile Bx/5ea - [id number] Implanted:Qty: 2 on 09/14/2018 by Chema Blankenship DO at [facility] Right: Hip [employer] 05/07/2020 [id number] / / [id number] Knee Bearing 16x63 To 67mm Insert Vanguard Posterior Stabilized Plus Medial Lateral Anterior - [id number] Implanted:Qty: 1 on 04/24/2025 by Michael Holland MD at [facility] Right: Knee [employer] 03/19/2028 [id number] / / [id number] Procedures Procedure Name Priority Date/Time Associated Diagnosis Comments XR KNEE 3 VIEW (RIGHT) Routine 06/06/2025 9:36 AM EDT Aftercare following joint replacement surgery AMB REFERRAL TO [facility] PHYSICAL THERAPY Routine 05/30/2025 3:01 PM [...] Fi nal Result * Ambulatory referral to [facility] Physical Therapy (05/30/2025 3:01 PM EDT) Other us Juan Bojorquez PA-C AMB [facility] REFERRALS Final R esult * (ABNORMAL) Basic metabolic panel (04/26/2025 6:33 AM EDT) SODIUM 136 133 - 146 mmol/L [facility] CHLORIDE 100 96 - 108 mmol/L [facility] POTASSIUM 3.6 3.3 - 5.1 mmol/L [facility] CO2 28 21 - 35 mmol/L [facility] BUN 14 6 - 19 mg/dL [facility] CREATININE 1.10 0.5 - 1.5 mg/dL [facility] GLUCOSE 112(H) 70 - 99 mg/dL [facility] CALCIUM 8.8 8.4 - 10.3 mg/dL [facility] EGFR 55(L) >59 mL/min/1.7 3m2 [facility] Comment:Estimated glomerular filtration rate calculated using the CKD-EPI refit equation. ANION GAP 12 10 - 20 mmol/L [facility] Blood 04/26/2025 6:33 AM EDT 04/26/2025 6:43 AM EDT us Juan Bojorquez PA-C LAB BLOOD BKR ORDERABLES Final Result [facility] [address] [place] [address] from Last 3 Months or Most Recently Relevant to Health Maintenance Insurance MEDICARE PART A & B [employer] MEDICARE SUPPLEMENT MEDICARE PART A & B [employer] MEDICARE SUPPLEMENT MEDICARE PART A & B MEDICARE PART A & B MEDICARE PART A & B [employer] MEDICARE SUPPLEMENT MEDICARE PART A & B MEDICARE PART A & B [employer] MEDICARE SUPPLEMENT MEDICARE PART A & B [employer] MEDICARE SUPPLEMENT MEDICARE PART A & B [facility] FOR LIFE MEDICARE SUPPLEMENT Advance Directives For more information, please contact: [phone] (9AM - 5PM [facility], Tuesday-Tuesday) * Full Code (Latest Code Status on File) Date Activated Date Inactivated Comments 04/24/2025 6:07 AM Question Answer Comments Code Status Confirmed With: Patient * Full Code (Presumed) Date Activated Date Inactivated Comments 09/14/2018 11:41 AM 09/15/2018 4:14 AM Care Teams Cell Pourer Relationship Specialty Start Date End Date Marcos Rocha NP [address] [place] [address] [place] [address] PCP - General Nurse Practitioner 03/14/23 Naomy Ornelas MD [address] [place] [address] [place] [address] Insurance Assigned Provider Internal Medicine 03/16/23 Additional Source Comments The information contained in this document represents components of the legal health record. It is not the complete legal health record.[facility]
--- OUTSIDE RECORDS SUMMARY | 2025-08-27 07:20 | XMS_ITS | Encounter Summary ---
Author Organization [facility] Address [address] [place] [address] Phone Care Team Providers Care Furniture Assembler Name Role Phone Kelsea De Luna BONDING MACHINE SETTER Primary Care Provider [phone] Silas Weathers MD Primary Care Provider [phone] Marcos Rocha NP Primary Care Provider + Naomy Ornelas MD Unavailable Encounter Details Date Type Department Care Team (Late st Contact Info) Description 06/14/2018 Procedure Pass [address] [place] [address] Social History Tobacco Use Types Packs/Day Years [...] Department Care Team (Late Contact Info) Description 09/05/2025 7:30 AM EST Office Visit [facility] [address] [place] [address] Juan Bojorquez PA-C [address] [place] [address] Orthopedics & Sports Medicine, [facility]. [place], [place] [phone] [email or web address] Andreina Naranjo, VP [employer] [address] [place] [address] [email or web address] 09/12/2025 12:45 PM EST Office Visit [address] [address] Juan Bojorquez PA-C [address] [place] [address], [place] [address] Andreina Naranjo, VP [employer] [address] [place] [address] [email or web address] 09/18/2025 9:00 AM EST Office Visit [address] [address] Juan Bojorquez PA-C [address] [place] [address], [place] [address] Andreina Nraanjo VP [employer] [address] [place] [address] 09/24/2025 12:45 PM EST Office Visit [address] [address] Juan Bojorquez PA-C [address] [place] [address], [place] [address] Andreina Naranjo VP [employer] [address] [place] [phone] [email or web address] 10/01/2025 11:45 AM EST Office Visit [address] [address] Juan Bojorquez PA-C [address] [place] [address], [place], [place] [phone] [email or web address] Klaus King, PT 4 [place], [place] [phone] [email or web address] documented as of this encounter Visit Diagnoses Not on filedocumented in this encounter Care Teams Furniture Assembler Relationship Specialty Start Date End Date Kelsea De Luna NP [address] [place] [address] [place] [address] [email or web address] PCP - General 07/21/17 06/26/18 Silas Weathers MD [address] [place] [address] Dr Shannon [address] [place], [place] [address] [address] PCP - General Internal Medicine 06/27/18 03/13/23 Marcos Rocha NP [address] [place] [address] [place] [address] PCP - General Nurse Practitioner 03/14/23 Naomy Ornelas MD [address] [place] [address] [place] [address] Insurance Assigned Provider Internal Medicine 03/16/23 documented as of this encounter Additional Source Comments The information contained in this document represents components of the legal health record. It is not the complete legal health record.[facility]
--- OUTSIDE RECORDS SUMMARY | 2025-08-27 07:20 | XMS_ITS | Encounter Summary ---
Author Organization [facility] Address [address] [place] [address] Phone Care Team Providers Care Flying Teacher Name Role Phone Marcos Rocha NP Primary Care Provider + Naomy Ornelas MD Unavailable [phone] Reason for Visit * Reason Comments Medication Refill Encounter Details Date Type Department Care Team ([facility] Contact Info) Description 06/22/2025 Refill [facility] Orthopedics & Sports Medicine [address] [place] [address] Juan Bojorquez PA-C [address] [place] [address] Orthopedics & Sports Medicine, [place] [address] [email or web address] Medication Refill Social History Tobacco Use Types [...] Description 09/05/2025 7:30 AM EST Office Visit [facility] [address] [place] [address] Juan Bojorquez PA-C [address] [facility] [place] [address] Andreina Naranjo [address] [address] 09/12/2025 12:45 PM EST Office Visit [address] [address] Juan Bojorquez PA-C [address] [place] [address] [facility], [place] [address] Andreina Naranjo [address] [address] 09/18/2025 9:00 AM EST Office Visit [address] [address] Juan Bojorquez PA-C [address] [place] [address], [place] [address] Andreina Naranjo, [address] [address] 09/24/2025 12:45 PM EST Office Visit [address] [address] Juan Bojorquez PA-C [address] [place] [address], [place] [address] Andreina Naranjo [address] [address] 10/01/2025 11:45 AM EST Office Visit [address] [phone] Juan Bojorquez PA-C 4 [facility] [place] [address] Klaus King, PT 4 [place] [address] [email or web address] documented as of this encounter Visit Diagnoses Not on filedocumented in this encounter Care Teams Flying Teacher Relationship Specialty Start Date End Date Marcos Rocha NP [address] [facility] [place] [address] PCP - General Nurse Practitioner 03/14/23 Naomy Ornelas MD [address] [facility] [place] [address] Insurance Assigned Provider Internal Medicine 03/16/23 documented as of this encounter Additional Source Comments The information contained in this document represents components of the legal health record. It is not the complete legal health record.[facility]
--- OUTSIDE RECORDS SUMMARY | 2025-08-27 07:20 | XMS_ITS | Encounter Summary ---
Author Organization [facility] Address [address] [place] [address] Phone Care Team Providers Care Assistant Administrator Name Role Phone Marcos Rocha NP Primary Care Provider + Naomy Ornelas MD Unavailable + [phone] Encounter Details Date Type Department Care Team (Latest Contact Info) Description 07/09/2024 Ancillary Orders [facility] Orthopedics & Sports Medicine [address] [place] [address] Sharath Zepeda PA-C [address] [place] [address] Orthopedics & Sports Medicine, [facility] [place] [address] [email or web address] Bilateral hip pain (Primary Dx); Bilateral [...] Description 09/05/2025 7:30 AM EST Office Visit [address] [address] Juan Bojorquez PA-C [address] [place] [address], [place] [address] [email or web address] Andreina Naranjo PTA [address] [place] [phone] [email or web address] 09/12/2025 12:45 PM EST Office Visit [address] [address] Juan Bojorquez PA-C [address] [place] [address], [place] [address] [email or web address] Andreina Naranjo PTA [address] [place] [phone] [email or web address] 09/18/2025 9:00 AM EST Office Visit [address] [address] Juan Bojorquez PA-C [address] [place] [address], [place] [address] [email or web address] Andreina Naranjo PTA [address] [place] [address] [email or web address] 09/24/2025 12:45 PM EST Office Visit [address] [address] Juan Bojorquez PA-C [address] [place] [address], [place], [place] [phone] Andreina Naranjo PTA 4 [place] [address] 10/01/2025 11:45 AM EST Office Visit [facility] 4 [place], [place] [phone] Juan Bojorquez PA-C [address] [place] [address] [facility] [place], [place] [phone] Klaus King, PT 4 [place], [place] [phone] [email or web address] documented as of this encounter Results * [...] leg documented in this encounter Care Teams Assistant Administrator Relationship Specialty Start Date End Date Marcos Rocha NP [address] [facility] [place] [place] [address] PCP - General Nurse Practitioner 03/14/23 Naomy Ornelas MD 1961 [facility] [place] [address] Insurance Assigned Provider Internal Medicine 03/16/23 documented as of this encounter Additional Source Comments The information contained in this document represents components of the legal health record. It is not the complete legal health record.[facility]
--- OUTSIDE RECORDS SUMMARY | 2025-08-27 07:20 | XMS_ITS | Encounter Summary ---
Author Organization [facility] Address [address] [place] [address] Phone Care Team Providers Care Range Conservationist Name Role Phone Kelsea De Luna ROLLER OPERATOR Primary Care Provider [phone] Silas Weathers MD Primary Care Provider [phone] Marcos Rocha NP Primary Care Provider + Naomy Ornelas MD Unavailable [phone] Encounter Details Date Type Department Care Team (Late st Contact Info) Description 06/14/2018 Procedure Pass [address] [place] [address] Social History Tobacco Use Types Packs/Day Years [...] Description 09/05/2025 7:30 AM EST Office Visit [facility] [address] [place] [address] Juan Bojorquez PA-C [address] [place] [address] Orthopedics & Sports Medicine, [facility]. [place], [place] [phone] Andreina Naranjo, WIND FARM DESIGNER [address] [place] [address] 09/12/2025 12:45 PM EST Office Visit [address] [address] Juan Bojorquez PA-C [address] [place] [address], [place] [address] Andreina Naranjo, WIND FARM DESIGNER [address] [place] [address] 09/18/2025 9:00 AM EST Office Visit [address] [address] Juan Bojorquez PA-C [address] [place] [address], [place] [address] Andreina Naranjo WIND FARM DESIGNER [address] [place] [address] 09/24/2025 12:45 PM EST Office Visit [address] [address] Juan Bojorquez PA-C [address] [place] [address], [place] [address] Andreina Naranjo WIND FARM DESIGNER [address] [place] [address] 10/01/2025 11:45 AM EST Office Visit [address] [address] Juan Bojorquez PA-C [address] [place] [address], [place], [place] [phone] [email or web address] Klaus King, PT 4 [place], [place] [phone] [email or web address] documented as of this encounter Visit Diagnoses Not on filedocumented in this encounter Care Teams Range Conservationist Relationship Specialty Start Date End Date Kelsea De Luna NP [address] [place] [address] [place] [address] [email or web address] PCP - General 07/21/17 06/26/18 Silas Weathers MD [address] [place] [address] Dr Shannon [address] [place], [place] [address] [address] PCP - General Internal Medicine 06/27/18 03/13/23 Marcos Rocha NP [address] [place] [address] [place] [address] PCP - General Nurse Practitioner 03/14/23 Naomy Ornelas MD [address] [place] [address] [place] [address] Insurance Assigned Provider Internal Medicine 03/16/23 documented as of this encounter Additional Source Comments The information contained in this document represents components of the legal health record. It is not the complete legal health record.[facility]
--- OUTSIDE RECORDS SUMMARY | 2025-08-27 07:20 | XMS_ITS | Encounter Summary ---
Author Organization [facility] Address [address] [place] [address] Phone Care Team Providers Care Core Paster Name Role Phone Silas Weathers MD Primary Care Provider Marcos Rocha NP Primary Care Provider + Naomy Ornelas MD Unavailable + [phone] Encounter Details Date Type Department Care Team (Late Contact Info) Description 09/14/2018 Procedure Pass OR Admitting Dept - Virtual Department [address] [place] [address] Social History Tobacco Use Types Packs/Day Years [...] Description 09/05/2025 7:30 AM EST Office Visit [facility] [address] [place] [address] Juan Bojorquez PA-C [address] [place] [address] Orthopedics & Sports Medicine, [facility]. [place], [place] [phone] Andreina Naranjo PTA [address] [place] [address] 09/12/2025 12:45 PM EST Office Visit [address] [address] Juan Bojorquez PA-C [address] [place] [address] Sports [facility], [place] [address] Andreina Naranjo, SAUSAGE CUTTER [address] [place] [address] 09/18/2025 9:00 AM EST Office Visit [address] [address] Juan Bojorquez PA-C [address] [place] [address], [place] [address] Andreina Naranjo, SAUSAGE CUTTER [address] [place] [address] 09/24/2025 12:45 PM EST Office Visit [address] [address] Juan Bojorquez PA-C [address] [place] [address], [place] [address] Andreina Naranjo, SAUSAGE CUTTER [address] [place] [address] 10/01/2025 11:45 AM EST Office Visit [address] [phone] Juan Bojorquez PA-C [address] [place] [address] Sports [facility], [place] [address] Klaus King, PT 4 [place] [address] [email or web address] documented as of this encounter Visit Diagnoses Not on filedocumented in this encounter Care Teams Core Paster Relationship Specialty Start Date End Date Silas Weathers MD [address] [place] [address] [place] [address] PCP - General Internal Medicine 06/27/18 03/13/23 Marcos Rocha NP [address] [place] [address] [place] [address] PCP - General Nurse Practitioner 03/14/23 Naomy Ornelas MD [address] [place] [address] [place] [address] Insurance Assigned Provider Internal Medicine 03/16/23 documented as of this encounter Additional Source Comments The information contained in this document represents components of the legal health record. It is not the complete legal health record.[facility]
--- OUTSIDE RECORDS SUMMARY | 2025-08-27 07:21 | XMS_ITS | Encounter Summary ---
Author Organization [facility] Address [address] [place] [address] Phone Care Team Providers Care Asbestos Abatement Worker Name Role Phone Marcos Rocha SHEAR SCRAPMAN Primary Care Provider + Naomy Ornelas MD Unavailable + [phone] Encounter Details Date Type Department Care Team (Late st Contact Info) Description 04/24/2025 Procedure Pass OR Admitting Dept - Virtual Department 30 [place] [address] Social History Tobacco Use Types Packs/Day Years [...] 1:00 PM EDT Maira Melendez, ROCÍO * [place] Suicide Severity Rating Scale (Screener/Recent Self-Report) Question Answer Date of Assessment Author 1. Wish to be (Past 1 Month) No 025 1:00 PM EDT Maira Melendez, RN 2. Non-Specific Active Suici uvaldo Thoughts (Past 1 Month) No 04/24/2025 1:00 PM EDT Maira Melendez , RN 6. Suicidal Behavior (Lifetime) No 1:00 PM Maira Friedman RN documented as of this encounter Plan of Treatment Upcoming Encounters Date Type Department Care Team (Late st Contact Info) Description 09/05/2025 7:30 AM EST Office Visit [address] [address] Juan Bojorquez PA-C [address] [place] [address] Sports [facility], [place] [address] Andreina Naranjo PTA [address] [place] [address] 09/12/2025 12:45 PM EST Office Visit [address] [address] Juan Bojorquez PA-C [address] [place] [address], [place] [address] Andreina Naranjo PTA [address] [place] [address] 09/18/2025 9:00 AM EST Office Visit [address] [address] Juan Bojorquez PA-C [address] [place] [address], [place] [address] Andreina Naranjo FARM MACHINERY ENGINE MECHANIC [address] [place] [address] 09/24/2025 12:45 PM EST Office Visit [address] [phone] Juan Bojorquez PA-C [address] [place] [address], [place], [place] [phone] Andreina Naranjo, FARM MACHINERY ENGINE MECHANIC 4 [place], [place] [phone] 10/01/2025 11:45 AM EST Office Visit [facility] Services 4 [place], [place] [phone] Juan Bojorquez PA-C [address] [place] [address] [facility] [place], [place] [phone] Klaus King, PT 4 [place], [place] [phone] documented as of this encounter Visit Diagnoses Not on filedocumented in this encounter Care Teams Asbestos Abatement Worker Relationship Specialty Start Date End Date Marcos Rocha NP [facility] [place] [address] PCP - General Nurse Practitioner 03/14/23 Naomy Ornelas MD [address] [place] [address] [place] [address] Insurance Assigned Provider Internal Medicine 03/16/23 documented as of this encounter Additional Source Comments The information contained in this document represents components of the legal health record. It is not the complete legal health record.[facility]
[2025-08-27 07:41] LABS: MANUAL DIFF FLAG NO
[2025-08-27 07:49] LABS: Hematocrit 42.4 % (37.0-47.0); Hemoglobin 13.4 g/dl (12.0-16.0); Imm Gran Abs Auto 0.01 X10*3/uL (0.00-0.03); Imm Gran Pct Auto 0.2 % (0.0-0.4); Lymphocytes Absolute Auto 2.4 X10*3/uL (1.2-4.9); Mean Corpuscular HGB Conc 31.6 g/dl (31.0-35.0); Mean Corpuscular Hemoglobin 27.0 pg (27.0-33.0); Mean Corpuscular Volume 85.3 fL (80.0-98.0); NRBC Abs Auto 0.000 X10*3/uL (0.0-0.012); NRBC Pct Auto 0.0 /100WBC (0.0-0.2); Platelet Count 283 X10*3/uL (160-400); Red Blood Count 4.97 X10*6/uL (4.20-5.50); White Blood Count 5.9 X10*3/uL (4.8-10.8)
[2025-08-27 08:26] LABS: Alanine Aminotransferase 36 U/L (0-31); Albumin Level 4.2 g/dL (3.5-5.0); Alkaline Phosphatase 81 U/L (39-117); Anion Gap 11 (12-20); Aspartate Amino Transferase 38 U/L (5-31); Blood Urea Nitrogen 16 mg/dL (9-16); Calcium 9.8 mg/dL (8.4-10.2); Carbon Dioxide 31 mmol/L (22-29); Chloride 109 mmol/L (96-108); Cholesterol 151 mg/dL (<200); Estimated Glomerular Filt Rate > 60; HDL Cholesterol 45 mg/dL (>40); Potassium 4.1 mmol/L (3.3-5.1); Sodium 147 mmol/L (135-145); Total Protein 6.3 g/dL (6.5-8.0); Triglycerides 169 mg/dL (<150); Uric Acid 6.9 mg/dL (2.4-5.7)
== END 2025-08-27 07:17 | disposition home or self-care (01) ==
LOC: HO.LAB 07:16
PROVIDERS: Absent Provider Internal Medicine Hypertension Specialist; PCP Nurse Practitioner Family; Visit Provider Nurse Practitioner Family
DX: I10 Essential (primary) hypertension (principal); R80.9 Proteinuria, unspecified; E78.5 Hyperlipidemia, unspecified; Z13.21 Encounter for screening for nutritional disorder
CPT/HCPCS: 36415; 80053; 80061; 82306; 84443; 84550; 85025

== ENCOUNTER 2025-08-28 07:00 | Outpatient (REF) | payer MEDICARE, OTHER, SELFPAY ==
--- OUTSIDE RECORDS SUMMARY | 2024-10-25 09:30 | XMS_ITS ---
Author Organization [facility] Address [address] [place] [address] Care Team Providers Care Finisher Accordion Name Role Phone Marcos Samuels Primary Care Provider Unav ailable Susanne Garrison Unavailable [phone] REASON FOR VISIT X CHG Encounters Encounter Location Date Provider Diagnosis [address] [address] 10/25/2024 Susanne Garrison Plan Of Treatment Next Appt Details Provider Name:Susanne washington, 09/12/2025 08:30:00 AM, [address] [place], [address], Progress Notes * Radha JEAN LDOB: (65 yo F)Acc No.[id number]:10/25/2024 Progress Note Patient: Jacobo MCDONOUGH Radha Mckoy Provider: Wilmar Garrison DPM :1960 A ge:64 Y S ex:Female Date:10/25/2024 [facility] Pcp:JOSELO Cruz Subjective: * Chief Complaints: * [...] DPM Date: 0 10/25/2024 Generated for Virgilio barreot/Alin/Adriana on: 1 10/28/2024 08:55 AM EST
--- OUTSIDE RECORDS SUMMARY | 2025-08-26 10:45 | XMS_ITS | Encounter Summary ---
Author Organization [facility] Address [address] [place] [id number] Phone Care Team Providers Care Shoe Repairer Helper Name Role Phone Marcos Rocha PYTHON ARCHITECT Primary Care Provider + Naomy Ornelas MD Unavailable + [phone] Reason for Visit * Physical Therapy (Within 2 weeks) - Authorized Specialty Diagnoses / Procedures Referred By Bi hou Referred To Contact Physical Therapy Diagnoses right TKA revision, patellectomy Juan Bojorquez PA-C Phone: tel: fax: [email or web address] [facility] [address] [place] [address] Phone: tel: Referral ID Status Reason Start Date Expiration Date V isits Requested Visits Authorized [id number] Authorized 04/02/2025 04/02/2026 99 99 Encounter Details Date Type Department Care Team (Latest Contact Info) Description 08/26/2025 10:45 AM EST Office Visit [facility] Rehabilitation Services [address] [place] [address] [phone] Juan Bojorquez PA-C [address] [place] [address] Orthopedics & Sports Medicine, [facility] [place], [place] [phone] [email or web address] Klaus Puente, PT [address] [place], [place] [phone] [email or web address] g Acute postoperative pain of right knee [...] as of this encounter Progress Notes * Klaus King, PT - 08/26/2025 10:45 AM EST Physical Therapy Progress Note Patient Name: Radha Jean Date of : 1960 This patient has attended 15 visits since the onset Physical Therapy. Referring MD: Juan Bojorquez PA-C [address] [place] [address] Orthopedics & Sports Medicine, [place] [address] Diagnosis: Acute postoperative pain of right knee [...] TKA protocol R patellectomy Asthma Subjective comments: The knee buckled on me this morning while standing. The last time it was buckled was two weeks ago. When it ronald, it ronald inward/toward the inside and feels weird. Still doing water aerobics 2 days/week. Pain comments pre-treatment: R knee: 0/10 Objective Measures: KNEE: Ext-Flex LEFT (??) RIGHT (??) AROM 0-140 0-130 PROM 0-140 0-130 Strength: Dynamometry testing units in lbs. MMT data on 0-5 scale. KNEE: LEFT RIGHT Flexion (S2) 4-/5 24.5 4-/5 22.2 Extension (L3) 4/5 34 4-/5 17.3 SLR No lag 5?? lag Comments: HIP LEFT RIGHT Flexion (L2) NT NT Abduction 7 0 Adduction NT NT ER 18 12 IR NT NT Extension 4-/5 4-/5 Comments: GOAL (Short Term): Within 4 weeks [...] one recent instance on Friday 07/06) OUTCOME (Speech Correction Consultant): Within 6 weeks the pt will demonstrate: 1) independence with advanced HEP and symptom management. (PARTIALLY MET: ongoing/progressing) 2) ability to perform all household and community ambulation without AD (PARTIALLY MET: true for household, but not community ambulation) 3) >/= 20 point increase in LEFS score 4) ability to reciprocally ascend/descend stairs with unilateral railing support (PARTIALLY MET: requires BUE on railing) New goal 08/20: improve R hip abduction strength to within 50% of L Interventions: See encounter report for minutes associated with each intervention. Warm Up: [] Scifit, seat 13, no UEs, resistance 5 x 6' [x] Elliptical: resistance 1 x2min Therex: [x] Supine: quad set + SLR x10 [x] Supine: SAQ [id number] holds [x] Supine: piriformis stretch x30sec each side [x] Supine: LTR [id number] each direction [x] Supine: SKC x30sec each side [x] Supine: isometric hip flexion (hands on thigh) 5x5sec each side [x] Supine: hip abduction on R x10 (requires A to avoid ER of the leg) [x] Sidelying hip abduction [x] Standing: lateral stepping pretending to hold a bowl of soup 3x5 each direction [] Standing: anterior step up R, anterior step down L: 6'' box with UE support [x] Anterior step up R, posterior step down L: 6'' box x10 with LUE support [] Lateral step ups/down: 6'' box x10 [] CC kvng HS curl 5#x10, 7.5#x10, 8.5#x10 [] CC kvng ext 3.5# x20 [] CC resisted TKEs: 5# x10 with 3sec holds (also gave blueTband for home) [] SLS x 5 , x 3 [] Total Gym: B squats level 20 x15, level 22 x10 [] Standing: single leg balance Home Exercise Program: Access Code: [email or web address] URL: [email or web address] Date: 08/26/2025 Prepared by: Klaus King Exercises - Bilateral Short Arc Quad Set - 1 x daily - 7 x weekly - 1 sets - 20 reps - 3sec hold - Small Range Straight Leg Raise - 1 x daily - 7 x weekly - 1 sets - 10 reps - Supine Piriformis Stretch with Foot on [...] 2 reps - 30sec hold - Hooklying Isometric Hip Flexion - 1 x daily - 3-4 x weekly - 2 sets - 10 reps - 5sec hold - Bridge with Hip Abduction and Resistance - 1 x daily - 3-4 x weekly - 2 sets - 10 reps - Clamshell with Resistance - 1 x daily - 3-4 x weekly - 2 sets - 10 reps - Supine Hip Abduction - 1 x daily - 3-4 x weekly - 3 sets - 10 reps - Sit to Stand with Arms Crossed - 1 x daily - 3-4 x weekly - 4 sets - 5 reps - Standing Hip Abduction with Counter Support - 1 x daily - 3-4 x weekly - 2 sets - 10 reps - Sidestepping - 1 x daily - 3-4 x weekly - 2 sets - 10 reps - Forward Step Up with Counter Support - 1 x daily - 3-4 x weekly - 2 sets - 10 reps - Standing Terminal Knee Extension with Resistance - 1 x daily - 3-4 x weekly - 2 sets - 10 reps - 3sec hold - Single Leg Stance - 1 x daily - 5 sets - 3 reps - 10sec hold Assessment: Reviewed finalized HEP and provided updated copy to pt. Minimal corrective cueing required for optimal technique. Plan: Frequency and Duration: Patient will be seen 2 times per week for 4 weeks. Focus on quad strength and gait mechanics. Treatment will include: - Therapeutic exercise: AROM, strengthening - Neuro Re-ed: balance/proprioceptive control - Functional mobility training: gait, stairs, transfers - Pt education and activity modification - HEP - Cryotherapy: game ready ice and compression Klaus King, [place] [id number] documented in this encounter Plan of Treatment Upcoming Encounters Date Type Department Care Team (Late st Contact Info) Description 09/05/2025 7:30 AM EST Office Visit [address] [address] Juan Bojorquez PA-C [address] [place] [address] Orthopedics Sports [facility], [place] [address] Andreina Naranjo PTA [address] [place] [address] 09/12/2025 12:45 PM EST Office Visit [address] [address] Juan Bojorquez PA-C [address] [place] [address] Orthopedics Sports [facility], [place] [address] Andreina Naranjo PTA [address] [place] [address] 09/18/2025 9:00 AM EST Office Visit [address] [address] Juan Bojorquez PA-C [address] [place] [address] Orthopedics Sports Medicine, [place] [address] Andreina Naranjo, SENIOR PROJECT CONTROLS SPECIALIST [address] [place] [address] 09/24/2025 12:45 PM EST Office Visit [facility] [address] [place] [address] Juan Bojorquez PA-C 4 [facility] Orthopedics Sports [facility], [place] [address] Andreina Naranjo, SENIOR PROJECT CONTROLS SPECIALIST [address] [place] [address] 10/01/2025 11:45 AM EST Office Visit [address] [address] Juan Bojorquez PA-C [address] [place], [place] [address]s Sports [facility], [place], [place] [phone] Klaus King, PT [address] [place] [address] documented as of this encounter Visit Diagnoses Diagnosis Acute postoperative pain of right knee- Primary documented in this encounter Care Teams Shoe Repairer Helper Relationship Specialty Start Date End Date Marcos Rocha NP [address] [facility] [place] [address] PCP - General Nurse Practitioner 03/14/23 Naomy Ornelas MD [address] [facility] [place] [address] Insurance Assigned Provider Internal Medicine 03/16/23 documented as of this encounter Additional Source Comments The information contained in this document represents components of the legal health record. It is not the complete legal health record.[facility]
--- OUTSIDE RECORDS SUMMARY | 2025-08-28 08:56 | XMS_ITS | Encounter Summary ---
Author Organization [facility] Address [address] [place] [address] Phone Care Team Providers Care Patient Observer Name Role Phone Kelsea De Luna TILE DECORATOR Primary Care Provider [phone] Silas Weathers MD Primary Care Provider [phone] Marcos Rocha NP Primary Care Provider + Naomy Ornelas MD Unavailable [phone] Encounter Details Date Type Department Care Team (Late Contact Info) Description 06/14/2018 Procedure Pass [address] [place] [address] Social History Tobacco Use Types Packs/Day Years [...] Description 09/05/2025 7:30 AM EST Office Visit [facility] Rehabilitation Services [address] [place] [address] [phone] Juan Bojorquez PA-C [address] [place] [address] Orthopedics & Sports Medicine, [facility]. [place], [place] [phone] [email or web address] Andreina Naranjo, GLOBAL CTO [address] [place] [address] [email or web address] 09/12/2025 12:45 PM EST Office Visit [address] [address] Juan Bojorquez PA-C [address] [place] [address], [place] [address] Andreina Naranjo, GLOBAL CTO [address] [place] [address] [email or web address] 09/18/2025 9:00 AM EST Office Visit [address] [address] Juan Bojorquez PA-C [address] [place] [address], [place] [address] Andreina Naranjo GLOBAL CTO [address] [place] [address] 09/24/2025 12:45 PM EST Office Visit [address] [address] Juan Bojorquez PA-C [address] [place] [address], [place] [address] Andreina Naranjo GLOBAL CTO [address] [place] [address] [email or web address] 10/01/2025 11:45 AM EST Office Visit [address] [address] Juan Bojorquez PA-C [address] [place] [address], [place], [place] [phone] [email or web address] Klaus King, PT 4 [place], [place] [phone] [email or web address] documented as of this encounter Visit Diagnoses Not on filedocumented in this encounter Care Teams Patient Observer Relationship Specialty Start Date End Date Kelsea De Luna NP [address] [place] [address] [place] [address] [email or web address] PCP - General 07/21/17 06/26/18 Silas Weathers MD [address] [place] [address] Dr [address] [place], [place] [address], [place] [address] PCP - General Internal Medicine 06/27/18 03/13/23 Marcos Rocha NP [address] [place] [address] [place] [address] PCP - General Nurse Practitioner 03/14/23 Naomy Ornelas MD [address] [place] [address] [place] [address] Insurance Assigned Provider Internal Medicine 03/16/23 documented as of this encounter Additional Source Comments The information contained in this document represents components of the legal health record. It is not the complete legal health record.[facility]
--- OUTSIDE RECORDS SUMMARY | 2025-08-28 08:56 | XMS_ITS | Encounter Summary ---
Author Organization [facility] Address [address] [place] [address] Phone Care Team Providers Care Design Lead Name Role Phone Kelsea De Luna MRB ENGINEER Primary Care Provider [phone] Silas Weathers MD Primary Care Provider [phone] Marcos Rocha NP Primary Care Provider + Naomy Ornelas MD Unavailable Encounter Details Date Type Department Care Team (Late Contact Info) Description 06/14/2018 Procedure Pass [address] [place] [address] Social History Tobacco Use Types Packs/Day Years [...] Description 09/05/2025 7:30 AM EST Office Visit [facility] Rehabilitation Services [address] [place] [address] [phone] Juan Bojorquez PA-C [address] [place] [address] Orthopedics & Sports Medicine, [facility]. [place], [place] [phone] Andreina Naranjo, COMPLETION ENGINEER [address] [place] [address] 09/12/2025 12:45 PM EST Office Visit [address] [address] Juan Bojorquez PA-C [address] [place] [address], [place] [address] Andreina Naranjo, COMPLETION ENGINEER [address] [place] [address] 09/18/2025 9:00 AM EST Office Visit [address] [address] Juan Bojorquez PA-C [address] [place] [address], [place] [address] Andreina Naranjo COMPLETION ENGINEER [address] [place] [address] 09/24/2025 12:45 PM EST Office Visit [address] [address] Juan Bojorquez PA-C [address] [place] [address], [place] [address] Andreina Naranjo COMPLETION ENGINEER [address] [place] [address] 10/01/2025 11:45 AM EST Office Visit [address] [address] Juan Bojorquez PA-C [address] [place] [address], [place], [place] [phone] [email or web address] Klaus King, PT 4 [place], [place] 1024288 [email or web address] documented as of this encounter Visit Diagnoses Not on filedocumented in this encounter Care Teams Design Lead Relationship Specialty Start Date End Date Kelsea De Luna NP [address] [place] [address] [place] [address] [email or web address] PCP - General 07/21/17 06/26/18 Silas Weathers MD [address] [place] [address] Dr [address] [place], [place] [address], [place] [address] PCP - General Internal Medicine 06/27/18 03/13/23 Marcos Rocha NP [address] [place] [address] [place] [address] PCP - General Nurse Practitioner 03/14/23 Naomy Ornelas MD [address] [place] [address] [place] [address] Insurance Assigned Provider Internal Medicine 03/16/23 documented as of this encounter Additional Source Comments The information contained in this document represents components of the legal health record. It is not the complete legal health record.[facility]
--- OUTSIDE RECORDS SUMMARY | 2025-08-28 08:56 | XMS_ITS | Encounter Summary ---
Author Organization [facility] Address [address] [place] [address] Phone Care Team Providers Care Sales Representative Adding Machines Name Role Phone Silas Weathers MD Primary Care Provider [phone] Marcos Rocha NP Primary Care Provider + Naomy Ornelas MD Unavailable + [phone] Encounter Details Date Type Department Care Team (Late Contact Info) Description 09/14/2018 Procedure Pass OR Admitting Dept - Virtual Department [address] [place] [address] Social History Tobacco Use Types Packs/Day Years [...] Description 09/05/2025 7:30 AM EST Office Visit [facility] Rehabilitation Services [address] [place] [address] Juan Bojorquez PA-C [address] [place] [address] Orthopedics & Sports Medicine, [facility]. [place], [place] [phone] Andreina Naranjo PTA [address] [place] [address] 09/12/2025 12:45 PM EST Office Visit [address] [address] Juan Bojorquez PA-C [address] [place] [address] Sports [facility], [place] [address] Andreina Naranjo, SALVAGE GRINDER [address] [place] [address] 09/18/2025 9:00 AM EST Office Visit [address] [address] Juan Bojorquez PA-C [address] [place] [address], [place] [address] Andreina Naranjo, SALVAGE GRINDER [address] [place] [address] 09/24/2025 12:45 PM EST Office Visit [address] [address] Juan Bojorquez PA-C [address] [place] [address], [place] [address] Andreina Naranjo, SALVAGE GRINDER [address] [place] [address] 10/01/2025 11:45 AM EST Office Visit [address] [phone] Juan Bojorquez PA-C [address] [place] [address] Sports [facility], [place] [address] Klaus King, PT 4 [place] [address] [email or web address] documented as of this encounter Visit Diagnoses Not on filedocumented in this encounter Care Teams Sales Representative Adding Machines Relationship Specialty Start Date End Date Silas Weathers MD [address] [place] [address] [place] [address] PCP - General Internal Medicine 06/27/18 03/13/23 Marcos Rocha NP [address] [place] [address] [place] [address] PCP - General Nurse Practitioner 03/14/23 Naomy Ornelas MD [address] [place] [address] [place] [address] Insurance Assigned Provider Internal Medicine 03/16/23 documented as of this encounter Additional Source Comments The information contained in this document represents components of the legal health record. It is not the complete legal health record.[facility]
--- OUTSIDE RECORDS SUMMARY | 2025-08-28 08:56 | XMS_ITS | Encounter Summary ---
Author Organization [facility] Address [address] [place] [address] Phone Care Team Providers Care Trust Accounts Supervisor Name Role Phone Marcos Rocha NP Primary Care Provider + Naomy Ornelas MD Unavailable + [phone] Encounter Details Date Type Department Care Team (Latest Contact Info) Description 07/09/2024 Ancillary Orders [facility]ics [facility] Sports Medicine [address] [place] [address] Sharath Zepeda PA-C [address] [place] [address] Orthopedics & Sports Medicine, [place] [address] [email or web address] Bilateral hip pain (Primary Dx); Bilateral [...] Description 09/05/2025 7:30 AM EST Office Visit [address] [address] Juan Bojorquez PA-C [address] [place] [address], [place] [address] Andreina Naranjo PTA [address] [place] [address] 09/12/2025 12:45 PM EST Office Visit [address] [address] Juan Bojorquez PA-C [address] [place] [address], [place] [address] Andreina Naranjo PTA [address] [place] [address] 09/18/2025 9:00 AM EST Office Visit [address] [address] Juan Bojorquez PA-C [address] [place] [address], [place] [address] Andreina Naranjo PTA [address] [place] [address] 09/24/2025 12:45 PM EST Office Visit [address] [address] Juan Bojorquez PA-C [address] [place] [address], [place], [place] [phone] Andreina Naranjo PTA 4 [place] [address] 10/01/2025 11:45 AM EST Office Visit [facility] Rehabilitation Services 4 [place], [place] [phone] Juan Bojorquez PA-C [address] [place] [address] [facility] [place], [place] [phone] Klaus King, PT 4 [place], [place] [phone] [email or web address] documented as of this encounter Results * [...] leg documented in this encounter Care Teams Trust Accounts Supervisor Relationship Specialty Start Date End Date Marcos Rocha NP [address] [facility] [place] [address] PCP - General Nurse Practitioner 03/14/23 Naomy Ornelas MD [address] [facility] [place] [address] Insurance Assigned Provider Internal Medicine 03/16/23 documented as of this encounter Additional Source Comments The information contained in this document represents components of the legal health record. It is not the complete legal health record.[facility]
--- OUTSIDE RECORDS SUMMARY | 2025-08-28 08:56 | XMS_ITS | Encounter Summary ---
Author Organization [facility] Address [address] [place] [address] Phone Care Team Providers Care Rcp Name Role Phone Marcos Rocha REEL BLADE BENDER FURNACE TENDER Primary Care Provider + Naomy Ornelas MD Unavailable + [phone] Encounter Details Date Type Department Care Team (Late st Contact Info) Description 04/24/2025 Procedure Pass OR Admitting Dept - Virtual Department 30 [place] [address] Social History Tobacco Use Types Packs/Day Years [...] 1:00 PM EDT Maira Melendez, ROCÍO * [place] Suicide Severity Rating Scale (Screener/Recent Self-Report) Question [...] Description 09/05/2025 7:30 AM EST Office Visit [address] [address] Juan Bojorquez PA-C [address] [place] [address] Sports [facility], [place] [address] Andreina Naranjo PTA [address] [place] [address] 09/12/2025 12:45 PM EST Office Visit [address] [address] Juan Bojorquez PA-C [address] [place] [address], [place] [address] Andreina Naranjo PTA [address] [place] [address] 09/18/2025 9:00 AM EST Office Visit [address] [address] Juan Bojorquez PA-C [address] [place] [address], [place] [address] Andreina Naranjo RCIS [address] [place] [address] 09/24/2025 12:45 PM EST Office Visit [address] [phone] Juan Bojorquez PA-C [address] [place] [address], [place], [place] [phone] Andreina Naranjo, RCIS 4 [place], [place] [phone] 10/01/2025 11:45 AM EST Office Visit [facility] 4 [place], [place] [phone] Juan Bojorquez PA-C [address] [place] [address] [facility] [place], [place] [phone] Klaus King, PT 4 [place], [place] [phone] documented as of this encounter Visit Diagnoses Not on filedocumented in this encounter Care Teams Rcp Relationship Specialty Start Date End Date Marcos Rocha NP [facility] [place] [address] PCP - General Nurse Practitioner 03/14/23 Naomy Ornelas MD [address] [place] [address] [place] [address] Insurance Assigned Provider Internal Medicine 03/16/23 documented as of this encounter Additional Source Comments The information contained in this document represents components of the legal health record. It is not the complete legal health record.[facility]
--- OUTSIDE RECORDS SUMMARY | 2025-08-28 08:56 | XMS_ITS | Encounter Summary ---
Author Organization [facility] Address [address] [place] [address] Phone Care Team Providers Care Grip Boss Name Role Phone Marcos Rocha NP Primary Care Provider + Naomy Ornelas MD Unavailable [phone] Reason for Visit * Reason Comments Medication Refill Encounter Details Date Type Department Care Team ([facility] Contact Info) Description 06/22/2025 Refill [facility] Sports Medicine [address] [place] [address] Juan Bojorquez PA-C [address] [place] [address] Orth[facility] Medicine, [place] [address] [email or web address] Medication Refill Social History Tobacco Use Types [...] Description 09/05/2025 7:30 AM EST Office Visit [facility] Services [address] [place] [address] Juan Bojorquez PA-C [address] [facility] [place] [address] Andreina Naranjo [address] [address] [email or web address] 09/12/2025 12:45 PM EST Office Visit [address] [address] Juan Bojorquez PA-C [address] [place] [address] Sports [facility], [place] [address] Andreina Naranjo [address] [address] 09/18/2025 9:00 AM EST Office Visit [address] [address] Juan Bojoruqez PA-C [address] [place] [address], [place] [address] Andreina Naranjo, [address] [address] 09/24/2025 12:45 PM EST Office Visit [address] [address] Juan Bojorquez PA-C [address] [place] [address], [place] [address] Andreina Naranjo [address] [address] 10/01/2025 11:45 AM EST Office Visit [address] [phone] Juan Bojorquez PA-C 4 [facility] [place] [address] Klaus King, PT 4 [place] [address] [email or web address] documented as of this encounter Visit Diagnoses Not on filedocumented in this encounter Care Teams Grip Boss Relationship Specialty Start Date End Date Marcos Rocha NP [address] [facility] [place] [address] PCP - General Nurse Practitioner 03/14/23 Naomy Ornelas MD [address] [facility] [address] Insurance Assigned Provider Internal Medicine 03/16/23 documented as of this encounter Additional Source Comments The information contained in this document represents components of the legal health record. It is not the complete legal health record.[facility]
--- OUTSIDE RECORDS SUMMARY | 2025-08-28 08:56 | XMS_ITS | Patient Health Record ---
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) Active confirmed Problem Localized, primary osteoarthritis of the ankle and/or foot (674354606) Primary osteoarthrit is, left ankle and foot (M19.072) Active confirmed Problem Acquired hammer toe of right foot (1795529157729214) Other hammer toe(s) (acquired), right foot (M20.41) Active confirmed Problem Acquired hammer toe of left foot (5881713711775044) Other hammer toe(s) (acquired), left foot (M20.42) [...] Ordered Date Performed Result Body Sit e 62437-RIN 09/04/2024 N/A 30586-VGIHQCI SKIN/TISSUE 09/20/2024 N/A Encounters Encounter Location Date Provider Diagnosis [facility] [address] [facility] [address] [place] [address] 09/04/2024 Susanne Garrison Ingrown nail L60.[address] [address] 09/20/2024 Susanne Garrison Skin ulcer of toe of right foot with fat layer exposed L97.[address] [address] 10/25/2024 Susanne Garrison Ingrown toenail L60.[address] [address] 09/21/2024 Susanne Garrison [address] [address] 03/11/2025 Susanne Garrison Xerosis of skin L85.[address] [address] 04/17/2025 Susanne Garrison [address] [address] 08/12/2025 Susanne Garrison Xerosis of skin L85.[address] [address] 08/12/2025 Susanne Garrison Assessments Encounter Date Diagnosis (ICD Code) Assessment Notes Treatment Notes Treatment Clinical Notes Section Notes 09/04/2024 Ingrown nail (ICD-10 - L60.0) 10/25/2024 [...] X ray : Foot, right 3V 07/09/2019 53231-Lhpy Destruction, 1-14 12/16/2014 69367-Akfe Destruction, 1-14 01/16/2015 79084-SUW 07/31/2024 97170-ZLG 09/04/2024 24695-GDOFUKC SKIN/TISSUE 09/20/2024 74386-FZHQUQT SKIN/TISSUE 08/16/2024 Next Appt Details Provider Name:Susanne Freeman padmini, 09/12/2025 08:30:00 AM, [address] [place], [address], Insurance Providers Payer Name Payer Address Payer Phone Subscriber Number Group Number Insured Name Patient Relationship to Insured Coverage Start Date Coverage End Date Medicare National [employer]t S[employer] [address] [place] [address] [phone] [id number] Radha Jean Self - patient is the insured [employer] [address] [place] [address] [phone] [id number] Radha Jean Self - patient is the [...] 11/1983 left knee replacement 2013 hip surgery-tendon creeon-jajqmicphc-zrx an tibial band repair colonoscopy 12/2021
--- OUTSIDE RECORDS SUMMARY | 2025-08-28 08:56 | XMS_ITS | Clinical Summary ---
Author Organization [facility] Address [address] [place] [phone] Phone Care Team Providers Care Bar Captain Name Role Phone Marcos Rocha NP Primary [...] daily. bottle states take 2 tabs daily Active cholecalciferol (VITAMIN D3) 2,000 unit tablet [...] Description 08/26/2025 10:45 AM EST Office Visit [facility] [address] [place] [address] Juan Bojorquez, Klaus Lee, PT Acute postoperative pain of right knee (Primary Dx) 08/20/2025 8:00 AM EST Office Visit [address] [address] Juan Bojorquez PA-C Jarjoura, Nicholas James, PT Acute postoperative pain of right knee (Primary Dx) 08/13/2025 8:15 AM EST Office Visit [address] [address] Juan Bojorquez PA-C Palermo, Christine, DIRECTOR COLLEGE Acute postoperative pain of right knee (Primary Dx) 08/08/2025 8:30 AM EST Office Visit [facility] [address] [place] [address] Michael Holland MD Gait abnormality (Primary Dx); Status post revision of total replacement of right knee; Tear of gluteus medius tendon, sequela; Other secondary scoliosis, lumbosacral region; Absence of patella 07/19/2025 3:15 PM EDT Office Visit [address] [address] Juan Bojorquez PA-C Jarjoura, Nicholas James, PT Acute postoperative pain of right knee (Primary Dx) 07/10/2025 9:45 AM EDT Office Visit [address] [address] Juan Bojorquez PA-C Palermo, Christine, DIRECTOR COLLEGE Acute postoperative pain of right knee (Primary Dx) 07/10/2025 Episode Documentation Update [facility] [address] [place] [phone] Amairani Hernandez 07/08/2025 9:15 AM EDT Office Visit [address] [address] Juan Bojorquez PA-C Jarjoura, Nicholas James, PT Acute postoperative pain of right knee (Primary Dx) 07/04/2025 10:15 AM EDT Office Visit [address] [address] Juan Bojorquez PA-C Jarjoura, Nicholas James, PT Acute postoperative pain of right knee (Primary Dx) 06/26/2025 1:30 PM EDT Office Visit [address] [address] Juan Bojorquez PA-C Palermo, Christine, DIRECTOR COLLEGE Acute postoperative pain of right knee (Primary Dx) 06/22/2025 Refill [facility] [address] [place] [address] Juan Bojorquez PA-C Medication Refill 06/21/2025 8:15 AM EDT Office Visit [address] [address] Juan Bojorquez PA-C Jarjoura, Nicholas James, PT Acute postoperative pain of right knee (Primary Dx) 06/18/2025 2:15 PM EDT Office Visit [address] [address] Juan Bojorquez PA-C Palermo, Christine, DIRECTOR COLLEGE Acute postoperative pain of right knee (Primary Dx) 06/14/2025 8:15 AM EDT Office Visit [address] [address] Juan Bojorquez PA-C Jarjoura, Nicholas James, PT Acute postoperative pain of right knee (Primary Dx) 06/11/2025 8:00 AM EDT Office Visit [address] [address] Juan Bojorquez PA-C Jarjoura, Nicholas James, PT Acute postoperative pain of right knee (Primary Dx) 06/06/2025 9:30 AM EDT Office Visit [facility] [address] [place] [address] Juan Bojorquez PA-C Aftercare following joint replacement surgery (Primary Dx) 06/06/2025 9:29 AM EDT - 06/06/2025 11:59 PM EDT Hospital Encounter [address] [address] Juan Bojorquez PA-C Discharge Disposition: Home or Self Care 06/06/2025 8:15 AM EDT Office Visit [facility] [address] [place] [address] Juan Bojorquez PA-C Palermo, Christine, DIRECTOR COLLEGE Acute postoperative pain of right knee (Primary Dx) 06/04/2025 8:15 AM EDT Office Visit [facility] [address] [place] [address] Juan Bojorquez PA-C Palermo, Christine, DIRECTOR COLLEGE Acute postoperative pain of right knee (Primary Dx) 05/30/2025 Plan of Care Documentation [facility] [address] [address] 05/28/2025 8:00 AM EDT Office Visit [facility] [address] [place] [address] Juan Bojorquez PA-C Jarjoura, Nicholas James, PT Acute postoperative pain of right knee (Primary Dx) from Last 3 Months Family History * [...] Description 09/05/2025 7:30 AM EST Office Visit [address] [address] Juan Bojorquez PA-C [address] [place] [address], [place] [address] [email or web address] Andreina Nraanjo, DIRECTOR COLLEGE [address] [place] [address] [email or web address] 09/12/2025 12:45 PM EST Office Visit [address] [address] Juan Bojorquez PA-C [address] [place] [address], [place] [address] [email or web address] Andreina Naranjo DIRECTOR COLLEGE [address] [place] [phone] [email or web address] 09/18/2025 9:00 AM EST Office Visit [address] [address] Juan Bojorquez PA-C [address] [place] [address], [place], [place] [phone] [email or web address] Andreina Naranjo DIRECTOR COLLEGE [address] [place] [phone] [email or web address] 09/24/2025 12:45 PM EST Office Visit [address] [phone] Juan Bojorquez PA-C [address] [place] [address], [place], [place] [phone] Andreina Naranjo, DIRECTOR COLLEGE [address] [place], [place] [phone] 10/01/2025 11:45 AM EST Office Visit [facility] [address] [place], [place] [phone] Juan Bojorquez PA-C [facility], [facility] [place], [place] [phone] Klaus King, PT [address] [place], [place] [phone] Health Maintenance Due Date Last Done Comments [...] this topic Medical Devices Implanted Type Area Sustainable Systems Analyst Device Identifier Shelf Expiration Date Model / Serial / Lot Knee Insert Tibial Implant Bar Locking Modular 15b - [id number] Implanted:Qty: 1 on 04/24/2025 by Michael Holland MD at [facility] Right: Knee [employer] 08/22/2034 [id number] / / [id number] Bilateral Knee Replacements [place] Suture 4.5mm Arthroscopy Reelx Stt Peek Stainless Steel Core Knotless Sharp Tip Expandable Sterile Bx/5ea - [id number] Implanted:Qty: 2 on 09/14/2018 by Chema Blankenship DO at [facility] Right: Hip [employer] 05/07/2020 [id number] / / [id number] Knee Bearing 16x63 To 67mm Insert Vanguard Posterior Stabilized Plus Medial Lateral Anterior - [id number] Implanted:Qty: 1 on 04/24/2025 by Michael Holland MD at [facility] Right: Knee [employer] 03/19/2028 [id number] / / [id number] Procedures Procedure Name Priority Date/Time Associated Diagnosis Comments XR KNEE 3 VIEW (RIGHT) Routine 06/06/2025 9:36 AM EDT Aftercare following joint replacement surgery AMB REFERRAL TO [facility] PHYSICAL THERAPY Routine 05/30/2025 3:01 PM [...] Fi nal Result * Ambulatory referral to [facility] Physical Therapy (05/30/2025 3:01 PM EDT) Other us Juan Bojorquez PA-C AMB [facility] REFERRALS Final R esult * (ABNORMAL) Basic metabolic panel (04/26/2025 6:33 AM EDT) SODIUM 136 133 - 146 mmol/L [facility] CHLORIDE 100 96 - 108 mmol/L [facility] POTASSIUM 3.6 3.3 - 5.1 mmol/L [facility] CO2 28 21 - 35 mmol/L [facility] BUN 14 6 - 19 mg/dL [facility] CREATININE 1.10 0.5 - 1.5 mg/dL [facility] GLUCOSE 112(H) 70 - 99 mg/dL [facility] CALCIUM 8.8 8.4 - 10.3 mg/dL [facility] EGFR 55(L) >59 mL/min/1.7 3m2 [facility] Comment:Estimated glomerular filtration rate calculated using the CKD-EPI refit equation. ANION GAP 12 10 - 20 mmol/L [facility] Blood 04/26/2025 6:33 AM EDT 04/26/2025 6:43 AM EDT us uJan Bojorquez PA-C LAB BLOOD BKR ORDERABLES Final Result [facility] [address] [place] [address] from Last 3 Months or Most Recently Relevant to Health Maintenance Insurance MEDICARE PART A & B Member Subscriber Plan / Payer (Ef fective 2024-Present) Name:Ted Radha Member ID:[id number] Relation to Subscriber:Self Name:Ted Radha Subscriber ID:[id number] Payer ID:[id number] Group ID:Not on file Type:Medicare Address: [employer] [address] [place] [address] [employer] MEDICARE SUPPLEMENT MEDICARE PART A & B Member Subscriber Plan / Payer (Ef fective 2024-Present) Name:Radha Jean Member ID:[id number] Relation to Subscriber:Self Name:Radha Jean Subscriber ID:[id number] Payer ID:[id number] Group ID:Not on file Type:Medicare Address: [employer] [address] [place] [phone] [employer] MEDICARE SUPPLEMENT MEDICARE PART A & B Member Subscriber Plan / Payer (Ef fective 2024-Present) Name:Radha Jean Member ID:[id number] Relation to Subscriber:Self Name:Ted Radha Subscriber ID:[id number] Payer ID:[id number] Group ID:Not on file Type:Medicare Address: [employer] [address] [place] [address] MEDICARE PART A & B Member Subscriber Plan / Payer (Ef fective 2024-) Name:Radha Jean Member ID:[id number] Relation to Subscriber:Self Name:TedKarolineRadha Subscriber ID:[id number] Payer ID:[id number] Group ID:Not on file Type:Medicare Address: [employer] [address] [place] [address] MEDICARE PART A & B Member Subscriber Plan / Payer (Ef fective 2024-) Name:Radha Jean Member ID:[id number] Relation to Subscriber:Self Name:Karoline Jeanire Subscriber ID:[id number] Payer ID:[id number] Group ID:Not on file Type:Medicare Address: [employer] [address] [place] [address] [employer] MEDICARE SUPPLEMENT MEDICARE PART A & B Member Subscriber Plan / Payer ( fective 2024-) Name:Ted Radha Member ID:[id number] Relation to Subscriber:Self Name:Karoline Jeanire Subscriber ID:[id number] Payer ID:[id number] Group ID:Not on file Type:Medicare Address: [employer] [address] [place] [address] MEDICARE PART A & B Member Subscriber Plan / Payer ( fective 2024-) Name:Radha Jean Member ID:[id number] Relation to Subscriber:Self Name:Karoline Jeanire Subscriber ID:[id number] Payer ID:[id number] Group ID:Not on file Type:Medicare Address: [employer] [address] [place] [address] FOR LIFE MEDICARE SUPPLEMENT MEDICARE PART A & B Member Subscriber Plan / Payer (Ef fective 2024-Present) Name:Radha Jean Member ID:[id number] Relation to Subscriber:Self Name:Radha Jean Subscriber ID:[id number] Payer ID:[id number] Group ID:Not on file Type:Medicare Address: [employer] [address] [address] [place], [place] [phone] [employer] MEDICARE SUPPLEMENT MEDICARE PART A & B Member Subscriber Plan / Payer (Ef fective 2024-Present) Name:Radha Jean Member ID:[id number] Relation to Subscriber:Self Name:Radha Jean Subscriber ID:[id number] Payer ID:[id number] Group ID:Not on file Type:Medicare Address: [employer] [address] [place] [phone] [employer] MEDICARE SUPPLEMENT Advance Directives For more information, please contact: [phone] (9AM - 5PM [place], Tuesday-Tuesday) * Full Code (Latest Code Status on File) Date Activated Date Inactivated Comments 04/24/2025 6:07 AM Question Answer Comments Code Status Confirmed With: Patient * Full Code (Presumed) Date Activated Date Inactivated Comments 09/14/2018 11:41 AM 09/15/2018 4:14 AM Care Teams Bar Captain Relationship Specialty Start Date End Date Marcos Rocha NP 1962 [facility] [place] [address] PCP - General Nurse Practitioner 03/14/23 Naomy Ornelas MD [address] [facility] [place] [address] Insurance Assigned Provider Internal Medicine 03/16/23 Additional Source Comments The information contained in this document represents components of the legal health record. It is not the complete legal health record.[facility]
[2025-08-28 10:47] LABS: Appearance Urine Clear; Glucose Urine UA Negative (Negative); PH 6.5 (5.0-9.0); Specific Gravity - Urine 1.015 (1.005-1.025); UMIC TRIGGER UA YES; UMIC TRIGGER UACC YES
[2025-08-28 11:20] LABS: Total Protein Urine Random < 7 mg/dL (<12)
== END 2025-08-28 07:01 | disposition home or self-care (01) ==
LOC: HO.HMGCLNP 07:00
PROVIDERS: PCP Nurse Practitioner Family; Visit Provider Internal Medicine Hypertension Specialist
DX: R30.0 Dysuria (principal); R80.9 Proteinuria, unspecified
CPT/HCPCS: 81001; 82570; 84156; 87086

== ENCOUNTER 2025-09-05 09:23 | Outpatient (AMB) | payer MEDICARE, OTHER, SELFPAY ==
--- OUTSIDE RECORDS SUMMARY | 2024-10-25 09:30 | XMS_ITS ---
Author Organization [facility] Address [address] [place] [address] Care Team Providers Care Creative Recruiter Name Role Phone Marcos Samuels Primary Care Provider Unav ailable Susanne Garrison Unavailable [phone] REASON FOR VISIT X CHG Encounters Encounter Location Date Provider Diagnosis [address] [address] 10/25/2024 Susanne Garrison Plan Of Treatment Next Appt Details Provider Name:Susanne washington, 09/12/2025 08:30:00 AM, [address] [place], [address], Progress Notes * Radha JEAN LDOB: (65 yo F)Acc No.[id number]:10/25/2024 Progress Note Patient: Jacobo MCDONOUGH Radha Mckoy Provider: Wilmar Garrison DPM :1960 A ge:64 Y S ex:Female Date:10/25/2024 [facility] Pcp:JOSELO Cruz Subjective: * Chief Complaints: * [...] 10/25/2024 Generated for Virgilio barreto/Alin/Adriana on: 1 11/06/2024 10:39 AM EST
--- OUTSIDE RECORDS SUMMARY | 2025-09-05 07:30 | XMS_ITS | Encounter Summary ---
Author Organization [facility] Address [address] [place] [address] Phone Care Team Providers Care Technical Expert Name Role Phone Marcos Rocha NP Primary Care Provider + Naomy Ornelas MD Unavailable + [phone] Reason for Visit * Physical Therapy (Within 2 weeks) - Authorized Specialty Diagnoses / Procedures Referred By Bi hou Referred To Contact Physical Therapy Diagnoses right TKA revision, patellectomy Juan Bojorquez PA-C Phone: tel: fax: [email or web address] [facility] [address] [place] [address] Phone: tel: Referral ID Status Reason Start Date Expiration Date V isits Requested Visits Authorized [id number] Authorized 04/02/2025 04/02/2026 99 99 Encounter Details Date Type Department Care Team (Latest Contact Info) Description 09/05/2025 7:30 AM EST Office Visit [facility] [address] [place] [address] [phone] Juan Bojorquez PA-C [address] [place] [address] Orthopedics & Sports Medicine, [facility] [place] [address] [email or web address] Andreina Lozada PTA [address] [place] [address] [phone] [email or web address] Acute postoperative pain of right [...] this encounter Progress Notes * Andreina Naranjo, DIRECTOR INDUSTRIAL RELATIONS - 09/05/2025 7:30 AM EST Physical Therapy Progress Note Patient Name: Radha Jean Date of : 1960 This patient has attended 16 visits since the onset Physical Therapy. Referring MD: Juan Bojorquez PA-C [address] [place] [address] Orthopedics & Sports Medicine, [place] [address] Diagnosis: Acute postoperative pain of right knee [...] R patellectomy Asthma Subjective comments: Pt reports it buckled a little when she moved quickly the other day. She has not been doing her HEP as consistently, is still doing the pool class Pain comments pre-treatment: R knee: 0/10 Objective [...] one recent instance on Friday 07/06) OUTCOME (Care Home): Within 6 weeks the pt will [...] [x] Scifit, seat 13, no UEs, resistance 5 x 6' [] Elliptical: resistance 1 x2min Therex: [x] Supine: quad set + SLR x10 [x] Supine: SAQ 40u0pld holds [] Supine: piriformis stretch x30sec each side [] Supine: LTR 2m51nbl each direction [] Supine: SKC x30sec each side [] Supine: isometric hip flexion (hands on thigh) 5x5sec each side [] Supine: hip abduction on R x10 (requires A to avoid ER of the leg) [] Sidelying hip abduction [x] Standing: lateral stepping pretending to hold a bowl of soup 3x5 each direction [] Standing: anterior step up R, anterior step down L: 6'' box with UE support [] Anterior step up R, posterior step down L: 6'' box x10 with LUE support [] Lateral step ups/down: 6'' box x10 [x] CC kvng HS curl 5#x10, 7.5#x10, 8.5#x10 [x] CC kvng ext 3.5# x20 [] CC resisted TKEs: 5# x10 with 3sec holds (also gave sachaTband for home) [] SLS x 5 , x 3 [x] Total Gym: B squats level 20 x15, level 23 x10 [] Standing: single leg balance Home Exercise Program: Access Code: [email or web address] URL: [email or web address]/ Date: 08/26/2025 Prepared by: Klaus King Exercises [...] - 3 reps - 10sec hold Assessment: Pt has difficulty keeping full ext with SLR and LAQ. Reviewed some exs that could be done in the pool. She is able to walk more without the cane Plan: Frequency and Duration: Patient will be [...] Care Team (Late st Contact Info) Description 09/10/2025 11:00 AM EST Office Visit [address] [phone] Juan Bojorquez PA-C [address] [place], [place] [address]s Sports [facility], [place], [place] [phone] [email or web address] Klaus King, PT [address] [place] [address] 09/18/2025 9:00 AM EST Office Visit [address] [phone] Juan Bojorquez PA-C [address] [place] [address], [place], [place] [phone] [email or web address] Andreina Naranjo PTA [address] [place] [address] 09/24/2025 12:45 PM EST Office Visit [address] [phone] Juan Bojorquez PA-C [address] [place] [address] Sports [facility], [place], [place] [phone] [email or web address] Andreina Naranjo PTA [address] [place] [address] [email or web address] 10/01/2025 11:45 AM EST Office Visit [facility] [address] [place], [place] [phone] Juan Bojorquez PA-C [facility] Orth[facility]ics [facility] Sports Medicine, [facility]. [place], [place] [phone] Klaus King, PT [address] [place], [place] [phone] documented as of this encounter Visit Diagnoses Diagnosis Acute postoperative pain of right knee- Primary documented in this encounter Care Teams Technical Expert Relationship Specialty Start Date End Date Marcos Rocha NP [address] [facility] [place] [address] PCP - General Nurse Practitioner 03/14/23 Naomy Ornelas MD [address] [facility] [place] [address] Insurance Assigned Provider Internal Medicine 03/16/23 documented as of this encounter Additional Source Comments The information contained in this document represents components of the legal health record. It is not the complete legal health record.[facility]
[2025-09-05 09:28] VITALS: BP 156/80; PULSE 64; O2SAT 97; BMI 33.6
--- NOTE | 2025-09-05 09:28 | HO.NEPHOV ---
Vital Signs 09/05/25 09:28 09/05/25 09:40 Height 5 ft 4 in Weight 196 lb BMI 33.6 BP 156/80 H 140/80 H Blood Pressure Location Rt brachial Rt brachial Position Sitting Sitting Pulse 64 Pulse Source Pulse Oximeter Pulse Oximetry (%) 97 Oxygen Delivery Method Room Air Intake Visit Reasons: 6 MO FU Health Safety Specialist Required: No Accompanied by: Self / Same As Patient Allergies lactose Allergy (Unknown, Verified 09/05/25 09:30) lactose intolerant GI upset sulfamethoxazole Allergy (Unknown, Verified 09/05/25 09:30) vomiting tizanidine Allergy (Verified 09/05/25 09:30) Vomiting doxycycline Adverse Reaction (Severe, Verified 09/05/25 09:30) Diarrhea Medication List - Last Reconciled 09/05/25 by Willem Noriega MD albuterol sulfate 90 mcg/actuation 2 puffs inhalation Q4-6H PRN albuterol sulfate 2.5 mg (3 mL) inhalation QID PRN bupropion HCl XL 300 mg PO QAM calcium carbonate (Calcium 600) 600 mg PO BID 90 days cholecalciferol (vitamin D3) 25 mcg PO Q OTHER DAY coenzyme Q10 100 mg PO DAILY cyclobenzaprine 10 mg PO DAILY PRN diclofenac potassium 50 mg PO BID PRN 30 days docusate sodium (Colace) 100 mg PO BID fluticasone propion-salmeterol 500-50 mcg/dose (Wixela Inhub) 1 ea PO BID PRN gabapentin 1,200 mg (2 x 600 mg) PO DAILY 60 days levothyroxine 125 mcg PO QAM 90 days loratadine 10 mg PO DAILY losartan 25 mg PO DAILY lutein 40 mg PO DAILY magnesium 250 mg PO DAILY metoprolol succinate ER 25 mg PO DAILY montelukast 10 mg PO DAILY 90 days multivitamin 1 tab PO DAILY psyllium husk (Metamucil) 2 tsp PO DAILY PRN rosuvastatin 20 mg PO BEDTIME 90 days sennosides (senna) 17.2 mg (2 x 8.6 mg) PO BEDTIME 30 days sumatriptan succinate (Imitrex) 25 mg PO Q2-4H PRN 10 days tiotropium bromide (Spiriva with HandiHaler) 1 cap inhalation DAILY PRN tramadol 50 mg PO DAILY PRN vit C-E-zinc ii-kskj-erz-zeax 250 mg-200 unit -12.5 mg-1 mg (ICaps AREDS2) 1 cap PO DAILY HPI Comments Details: Radha is a pleasant 65-year-old woman referred for with newly identified proteinuria from a recent urinalysis. Proteinuria was not found in previous urinalyses, and the patient reports prior episodes of microscopic hematuria that have resolved. She has undergoned extensive urological work up including cystoscopy , which was negative. The patient has a history of stable, mildly elevated liver enzymes due to rosuvastatin use, and ano h/o alcohol and tobacco use. Her prior kidney function tests have been normal. There is no indication of acute kidney dysfunction at this time. The patient's history includes osteoarthritis with a previous knee replacement and scheduled revision, spondylolisthesis, scoliosis and she takes Diclofenac 50 mg daily for more than 5 years. She also has a history of a single urinary tract infection, several years ago, not related to current symptoms. 03/11/25 65-year-old female presenting with concerns regarding hyperuricemia. Her uric acid level was previously noted at 6.0 mg/dL. She does not exhibit symptoms of gout or associated arthropathies. The dietary cause was potentially identified as increased shellfish consumption during a recent vacation. The patient also presents with vitamin D intake concerns, which she has adjusted to mitigate prior excess levels. An additional focus is her scheduled knee surgery involving the removal of fragments from her kneecap, with prior bilateral surgeries providing historical context. 09/05/25 The patient is a 65 year old female presenting for a six-month follow-up for kidney health. She underwent a patellectomy on April 24 and is currently in physical therapy, using a cane for ambulation. She reports her knee is much better following the surgery. Regarding medications for pain, she has discontinued Celebrex but takes diclofenac daily. For her blood pressure, she takes losartan and is on half a dose of metoprolol. Her blood pressure typically runs low at home, around 115 systolic, but was elevated in the office today, which she attributes to her recent physical therapy session. A review of her recent lab work from the shows her kidney function is good with a creatinine of 0.9, and there was no protein in her urine. Her sodium level was slightly high at 147, and she admits finding it difficult to drink enough water in the winter. Her vitamin D level has improved to 50 from a previous high of 99 while taking supplements every other day, and her calcium level is normal at 9.8. Her uric acid level remains on the higher side. Her liver enzymes (ALT and AST) have decreased, with one value dropping from the 70s to 36 and another from 51 to 38, which is an acceptable mild elevation while on statin therapy. She engages in swimming a few times a week and reports her diet consists mainly of chicken with occasional red meat. [facility] Medical History (Updated 08/14/25 @ 09:39 by NELY Rob) Elevated liver enzymes Encounter for medication monitoring Polyarticular osteoarthritis History of cigarette smoking Encounter for annual wellness visit (AWV) in Medicare patient Abdominal pain Rash Contact dermatitis Upper respiratory tract infection Impacted cerumen, bilateral Fatigue Dietary counseling Screening for cervical cancer Physical exam Tubular adenoma of colon Diverticular disease Acute diverticulitis Macular degeneration Seborrheic keratosis Dyslipidemia Depression Asthma COPD (chronic obstructive pulmonary disease) HTN (hypertension) Hypothyroid Fibromyalgia Lumbar spondylosis Surgical History History of colonoscopy Hx laparoscopic cholecystectomy History of surgery H/O breast biopsy History of hysterectomy History of knee replacement procedure of right knee History of knee replacement procedure of left knee Family History Father Unknown family medical history Mother Unknown family medical history Social History Household Members: Spouse Housing: House Do you presently have visiting nurse or other home services: No Alcohol intake: never Patient Tobacco Use Status: Never used Tobacco e-Cigarette/Vaping Use: Never Used Second Hand Smoke Exposure: No Advance Directives Date on File: 01/08/22 service: No Current occupational status: disabled Cognitive needs: No Hearing needs: No Vision needs: No Physical Exam Vital Signs: Last Vital Signs Pulse 64 09/05/25 09:28 BP 140/80 H 09/05/25 09:40 Pulse Ox 97 09/05/25 09:28 Oxygen Delivery Method Room Air 09/05/25 09:28 BMI result Body Mass Index 33.6 Comfortable Neck supple no JVD. Lungs entry equal no rales. Heart S1-S2 heard no gallop or rub. Abdomen soft nontender. Neuro alert awake oriented. No asterixis. Extremities no edema. Results Reviewed Nephrology Results: Hgb, (12.0-16.0) 13.4 g/dl 08/27/25 WBC, (4.8-10.8) 5.9 X10*3/uL 08/27/25 Plt Count, (160-400) 283 X10*3/uL 08/27/25 Sodium, (135-145) 147 mmol/L H 08/27/25 Potassium, (3.3-5.1) 4.1 mmol/L 08/27/25 Chloride, (96-108) 109 mmol/L H 08/27/25 Carbon Dioxide, (22-29) 31 mmol/L H 08/27/25 BUN, (9-16) 16 mg/dL 08/27/25 Creatinine, (0.5-1.4) 0.91 mg/dL 08/27/25 Calcium, (8.4-10.2) 9.8 mg/dL 08/27/25 Urine Protein, (Neg-Trace) Negative mg/dL 08/28/25 Urine Creatinine 80.16 mg/dL 08/28/25 Assessment & Plan Assessment & Plan (1) Proteinuria: Code(s): R80.9 - Proteinuria, unspecified Category: Medical Plan 1. Hypertension - The patient's blood pressure was elevated in the office, with an initial reading of 156/80 mmHg and a repeat of 140/80 mmHg, though she reports good control at home, around 115 systolic. - The in-office elevation may be situational, possibly related to her recent physical therapy session. - Plan is to make no changes to her current medications, which include losartan and half a dose of metoprolol. - She was advised to continue monitoring her blood pressure at home. 2. h/o Dipstick positive proteinuria Protein : creatinine ratio and SPEP with basic serologies especially with a h/o micro hematuria - REpeat were normal Renal function is normal Cr 0.91 - A plan was made to recheck labs and urine in six months. 3. Chronic Pain Management - The patient currently takes diclofenac daily for knee pain post-patellectomy. - Chronic NSAID use is a concern for potential kidney stress, especially since she is also taking losartan. - She was advised to change her use of diclofenac to an as-needed (PRN) basis rather than daily. 4. Mild Hypernatremia - Lab results showed a slightly high sodium level of 147, likely due to insufficient fluid intake. - She was counseled on the importance of hydration and advised to increase her water intake. 5. Hyperuricemia - Her uric acid level remains on the higher side. - The primary recommendation is to increase fluid intake to help lower the level. - Dietary sources of purines were discussed, but increased hydration is the main strategy for now. 6. Vitamin D Level Management - Her vitamin D level is now 50, which is considered a good level, an improvement from a prior level of 99. - She was advised to continue her current regimen of taking her vitamin D supplement every other day. Orders: Orders Uric Acid 6 Months I10 - Essential (primary) hypertension, R80.9 - Proteinuria, unspecified Creatinine Urine 6 Months R80.9 - Proteinuria, unspecified Basic Metabolic Panel 6 Months I10 - Essential (primary) hypertension, R80.9 - Proteinuria, unspecified UA and rflx microscopic 6 Months I10 - Essential (primary) hypertension, R80.9 - Proteinuria, unspecified Total Protein Urine Random 6 Months R80.9 - Proteinuria, unspecified Coding Level of Care Code Est Pt Level 4 (34234) Diagnoses Proteinuria R80.9
[2025-09-05 09:40] VITALS: BP 140/80
--- OUTSIDE RECORDS SUMMARY | 2025-09-05 10:39 | XMS_ITS | Encounter Summary ---
Author Organization [facility] Address [address] [place] [phone] Phone Care Team Providers Care Thread Pulling Machine Attendant Name Role Phone Marcos Rocha NP Primary Care Provider + Naomy Ornelas MD Unavailable [phone] Reason for Visit * Reason Comments Medication Refill Encounter Details Date Type Department Care Team ([facility] Contact Info) Description 06/22/2025 Refill [facility] & Sports Medicine [address] [place] [id number] Juan Bojorquez PA-C [address] [place] [address] Orthopedics & Sports Medicine, [place] [address] [email or web address] Medication Refill Social History Tobacco Use Types [...] Description 09/10/2025 11:00 AM EST Office Visit [facility] [address] [place] [phone] Juan Bojorquez PA-C [address] [facility] [place] [address] [email or web address] Klaus King, PT [address] [place] [address] [email or web address] 09/18/2025 9:00 AM EST Office Visit [address] [phone] Juan Bojorquez PA-C [address] [place] [address] Sports [facility], [place] [address] [email or web address] Andreina Naranjo, [address] [phone] [email or web address] 09/24/2025 12:45 PM EST Office Visit [address] [address] Juan Bojorquez PA-C [address] [place] [address], [place], [place] [phone] [email or web address] Andreina Naranjo, [address] [phone] [email or web address] 10/01/2025 11:45 AM EST Office Visit [address] [phone] Juan Bojorquez PA-C [address] [place] [address], [place], [place] [phone] [email or web address] Klaus King, PT [address] [place], [place] [phone] [email or web address] documented as of this encounter Visit Diagnoses Not on filedocumented in this encounter Care Teams Thread Pulling Machine Attendant Relationship Specialty Start Date End Date Marcos Rocha, CARLY [address] [place] [address] PCP - General Nurse Practitioner 03/14/23 Naomy Ornelas MD [address] [place] [id number] Insurance Assigned Provider Internal Medicine 03/16/23 documented as of this encounter Additional Source Comments The information contained in this document represents components of the legal health record. It is not the complete legal health record.[facility]
--- OUTSIDE RECORDS SUMMARY | 2025-09-05 10:39 | XMS_ITS | Encounter Summary ---
Author Organization [facility] Address [address] [place] [address] Phone Care Team Providers Care Site Auditor Name Role Phone Kelsea De Luna NP Primary Care Provider [phone] Silas Weathers MD Primary Care Provider [phone] Marcos Rocha NP Primary Care Provider + Naomy Ornelas MD Unavailable Encounter Details Date Type Department Care Team (Late Contact Info) Description 06/14/2018 Procedure Pass [address] [place] [address] Social History Tobacco Use Types Packs/Day Years [...] Department Care Team (Late Contact Info) Description 09/10/2025 11:00 AM EST Office Visit [facility] [address] [place] [address] [phone] Juan Bojorquez PA-C [address] [place] [address] Orthopedics & Sports Medicine, [facility]. [place], [place] [phone] [email or web address] Klaus King, PT [address] [place], [place] [phone] [email or web address] 09/18/2025 9:00 AM EST Office Visit [address] [phone] Juan Bojorquez PA-C [address] [place] [address] Sports [facility], [place] [address] [email or web address] Andreina Naranjo HEALTH PROFESSIONAL [address] [place] [phone] [email or web address] 09/24/2025 12:45 PM EST Office Visit [address] [address] Juan Bojorquez PA-C [address] [place] [address], [place] [address] [email or web address] Andreina Naranjo HEALTH PROFESSIONAL [address] [place] [phone] [email or web address] 10/01/2025 11:45 AM EST Office Visit [address] [phone] Juan Bojorquez PA-C [address] [place] [address], [place], [place] [phone] [email or web address] Klaus King, PT [address] [place], [place] [phone] [email or web address] documented as of this encounter Visit Diagnoses Not on filedocumented in this encounter Care Teams Site Auditor Relationship Specialty Start Date End Date Kelsea De Luna NP [address] [place] [address] [address] [place] [id number] [email or web address] PCP - General 07/21/17 06/26/18 Silas Weathers MD [address] [place] [address] [place] [address] PCP - General Internal Medicine 06/27/18 03/13/23 Marcos Rocha NP [address] [place] [address] [place] [address] PCP - General Nurse Practitioner 03/14/23 Naomy Ornelas MD [address] [place] [address] [place] [phone] Insurance Assigned Provider Internal Medicine 03/16/23 documented as of this encounter Additional Source Comments The information contained in this document represents components of the legal health record. It is not the complete legal health record.[facility]
--- OUTSIDE RECORDS SUMMARY | 2025-09-05 10:39 | XMS_ITS | Encounter Summary ---
Author Organization [facility] Address [address] [place] [address] Phone Care Team Providers Care Agent Ticketing Gate Name Role Phone Kelsea De Luna NP Primary Care Provider [phone] Silas Weathers MD Primary Care Provider [phone] Marcos Rocha NP Primary Care Provider + Naomy Ornelas MD Unavailable Encounter Details Date Type Department Care Team (Late Contact Info) Description 06/14/2018 Procedure Pass [address] [place] [address] Social History Tobacco Use Types Packs/Day Years [...] Description 09/10/2025 11:00 AM EST Office Visit [facility] [address] [place] [address] [phone] Juan Bojorquez PA-C [address] [place] [address] Orthopedics & Sports Medicine, [facility]. [place], [place] [phone] [email or web address] Klaus King, PT [address] [place], [place] [phone] [email or web address] 09/18/2025 9:00 AM EST Office Visit [address] [phone] Juan Bojorquez PA-C [address] [place] [address] Sports [facility], [place] [address] [email or web address] Andreina Naranjo TELEVISION PICTURE TUBE REBUILDER [address] [place] [phone] [email or web address] 09/24/2025 12:45 PM EST Office Visit [address] [address] Juan Bojorquez PA-C [address] [place] [address], [place] [address] [email or web address] Andreina Naranjo TELEVISION PICTURE TUBE REBUILDER [address] [place] [phone] [email or web address] 10/01/2025 11:45 AM EST Office Visit [address] [phone] Juan Bojorquez PA-C [address] [place] [address], [place], [place] [phone] [email or web address] Klaus King, PT [address] [place], [place] [phone] [email or web address] documented as of this encounter Visit Diagnoses Not on filedocumented in this encounter Care Teams Agent Ticketing Gate Relationship Specialty Start Date End Date Kelsea De Luna NP [address] [place] [address] Dr [place] [phone] [email or web address] PCP - General 07/21/17 06/26/18 Silas Weathers MD [address] [place] [address] [place] [address] PCP - General Internal Medicine 06/27/18 03/13/23 Marcos Rocha NP [address] [place] [address] [place] [address] PCP - General Nurse Practitioner 03/14/23 Naomy Ornelas MD [address] [place] [address] [place] [id number] Insurance Assigned Provider Internal Medicine 03/16/23 documented as of this encounter Additional Source Comments The information contained in this document represents components of the legal health record. It is not the complete legal health record.[facility]
--- OUTSIDE RECORDS SUMMARY | 2025-09-05 10:39 | XMS_ITS | Clinical Summary ---
Author Organization [facility] Address [address] [place] [address] Phone Care Team Providers Care Vp Integrity Name Role Phone Marcos Rocha NP Primary Care Provider + Naomy Ornelas MD Unavailable [phone] Allergies Active Allergy Reactions Criticality Noted Date [...] Encounters Date Type Department Care Team Description 09/05/2025 7:30 AM EST Office Visit [facility] [address] [place] [address] Juan Bojorquez, Andreina Broussard, MEASUREMENT PSYCHOLOGIST Acute postoperative pain of right knee (Primary Dx) 08/26/2025 10:45 AM EST Office Visit [facility] [address] [address] Juan Bojorquez PA-C Jarjoura, Nicholas James, PT Acute postoperative pain of right knee (Primary Dx) 08/20/2025 8:00 AM EST Office Visit [address] [address] Juan Bojorquez PA-C Jarjoura, Nicholas James, PT Acute postoperative pain of right knee (Primary Dx) 08/13/2025 8:15 AM EST Office Visit [address] [address] Juan Bojorquez PA-C Palermo, Christine, MEASUREMENT PSYCHOLOGIST Acute postoperative pain of right knee (Primary Dx) 08/08/2025 8:30 AM EST Office Visit [facility] Orthopedics & Sports Medicine [address] [place] [address] Michael Holland MD Gait abnormality (Primary Dx); Status post revision of total replacement of right knee; Tear of gluteus medius tendon, sequela; Other secondary scoliosis, lumbosacral region; Absence of patella 07/19/2025 3:15 PM EDT Office Visit [address] [address] Juan Bojorquez PA-C Jarjoura, Nicholas James, PT Acute postoperative pain of right knee (Primary Dx) 07/10/2025 9:45 AM EDT Office Visit [address] [address] Juan Bojorquez PA-C Palermo, Christine, MEASUREMENT PSYCHOLOGIST Acute postoperative pain of right knee (Primary Dx) 07/10/2025 Episode Documentation Update [facility] [address] [place] [address] Amairani Hernandez 07/08/2025 9:15 AM EDT Office Visit [address] [address] Juan Bojorquez PA-C Jarjoura, Nicholas James, PT Acute postoperative pain of right knee (Primary Dx) 07/04/2025 10:15 AM EDT Office Visit [address] [address] Juan Bojorquez PA-C Jarjoura, Nicholas James, PT Acute postoperative pain of right knee (Primary Dx) 06/26/2025 1:30 PM EDT Office Visit [facility] [address] [place] [address] Juan Bojorquez PA-C Palermo, Christine, MEASUREMENT PSYCHOLOGIST Acute postoperative pain of right knee (Primary Dx) 06/22/2025 Refill [facility] Orthopedics & Sports Medicine [address] [place] [address] Juan Bojorquez PA-C Medication Refill 06/21/2025 8:15 AM EDT Office Visit [address] [address] Juan Bojorquez PA-C Jarjoura, Nicholas James, PT Acute postoperative pain of right knee (Primary Dx) 06/18/2025 2:15 PM EDT Office Visit [address] [address] Juan Bojorquez PA-C Palermo, Christine, MEASUREMENT PSYCHOLOGIST Acute postoperative pain of right knee (Primary Dx) 06/14/2025 8:15 AM EDT Office Visit [address] [address] Juan Bojorquez PA-C Jarjoura, Nicholas James, PT Acute postoperative pain of right knee (Primary Dx) 06/11/2025 8:00 AM EDT Office Visit [address] [address] Juan Bojorquez PA-C Jarjoura, Nicholas James, PT Acute postoperative pain of right knee (Primary Dx) 06/06/2025 9:30 AM EDT Office Visit [facility] Orthopedics & Sports Medicine [address] [place] [address] Juan Bojorquez PA-C Aftercare following joint replacement surgery (Primary Dx) 06/06/2025 9:29 AM EDT - 06/06/2025 11:59 PM EDT Hospital Encounter [address] [address] Juan Bojorquez PA-C Discharge Disposition: Home or Self Care 06/06/2025 8:15 AM EDT Office Visit [facility] [address] [place] [address] Juan Bojorquez PA-C Palermo, Christine, JOI Acute postoperative pain of right knee (Primary [...] Description 09/10/2025 11:00 AM EST Office Visit [facility] [address] [place] [address] Juan Bojorquez PA-C [address] [place] [address] Orthopedics & Sports Medicine, [place] [address] Klaus King, PT [address] [place], [place] [phone] [email or web address] 09/18/2025 9:00 AM EST Office Visit [address] [phone] Juan Bojorquez PA-C [address] [place] [address], [place], [place] [phone] Andreina Naranjo, MEASUREMENT PSYCHOLOGIST [address] [place] [address] [email or web address] 09/24/2025 12:45 PM EST Office Visit [address] [phone] Juan Bojorquez PA-C [address] [place] [address], [place], [place] [phone] Andreina Naranjo, MEASUREMENT PSYCHOLOGIST [address] [place] [address] 10/01/2025 11:45 AM EST Office Visit [address] [phone] Juan Bojorquez PA-C [address] [place] [address], [place], [place] [phone] Klaus King, PT [address] [place], [place] [phone] Health Maintenance Due Date Last Done Comments [...] this topic Medical Devices Implanted Type Area Development Mechanic Device Identifier Shelf Expiration Date Model / Serial / Lot Knee Insert Tibial Implant Bar Locking Modular 15b - [id number] Implanted:Qty: 1 on 04/24/2025 by Michael Holland MD at [facility] NOD[employer] Right: Knee [employer] 08/22/2034 [id number] / / [id number] Bilateral Knee Replacements Knob Noster Suture 4.5mm Arthroscopy Reelx Stt Peek Stainless Steel Core Knotless Sharp Tip Expandable Sterile Bx/5ea - [id number] Implanted:Qty: 2 on 09/14/2018 by Chema Blankenship DO at [facility] Right: Hip [employer] 05/07/2020 [id number] / / [id number] Knee Bearing 16x63 To 67mm Insert Vanguard Posterior Stabilized Plus Medial Lateral Anterior - [id number] Implanted:Qty: 1 on 04/24/2025 by Michael Holland MD at [facility] Right: Knee [employer] 03/19/2028 [id number] / / [id number] Procedures Procedure Name Priority Date/Time Associated Diagnosis Comments XR KNEE 3 VIEW (RIGHT) Routine 06/06/2025 9:36 AM EDT Aftercare following joint replacement surgery BASIC METABOLIC PANEL (BMP) Timed 04/26/2025 6:33 [...] LOWER EXTREMITY Fi nal Result * (ABNORMAL) Basic metabolic panel (04/26/2025 6:33 AM EDT) SODIUM 136 133 - 146 mmol/L [facility] CHLORIDE 100 96 - 108 mmol/L [facility] POTASSIUM 3.6 3.3 - 5.1 mmol/L [facility] CO2 28 21 - 35 mmol/L [facility] BUN 14 6 - 19 mg/dL [facility] CREATININE 1.10 0.5 - 1.5 mg/dL [facility] GLUCOSE 112(H) 70 - 99 mg/dL [facility] CALCIUM 8.8 8.4 - 10.3 mg/dL [facility] EGFR 55(L) >59 mL/min/1.7 3m2 [facility] Comment:Estimated glomerular filtration rate calculated using the CKD-EPI refit equation. ANION GAP 12 10 - 20 mmol/L [facility] Blood 04/26/2025 6:33 AM EDT 04/26/2025 6:43 AM EDT us Juan Bojorquez PA-C LAB BLOOD BKR ORDERABLES Final Result [facility] [address] [place], [place] [phone] from Last 3 Months or Most Recently Relevant to Health Maintenance Insurance MEDICARE PART A & B [facility] MEDICARE SUPP[facility]MENT [facility] Address: [facility] [address] [place] [address] MEDICARE PART A & B MEDICARE SUPPLEMENT [facility] Address: [address] [address] MEDICARE PART A & B MEDICARE PART A & B MEDICARE PART A & B MEDICARE SUPP[facility]MENT [facility] Address: [address] [address] MEDICARE PART A & B MEDICARE PART A & [place] [address] FOR LIFE MEDICARE SUPPLEMENT MEDICARE PART A & B [facility] FOR LIFE MEDICARE SUPPLEMENT MEDICARE PART A & B FOR LIFE MEDICARE SUPP[facility]MENT [facility] Address: [facility] [address] [place] [address] Advance Directives For more information, please contact: [phone] (9AM - 5PM [facility], Tuesday-Tuesday) * Full Code (Latest Code Status on File) Date Activated Date Inactivated Comments 04/24/2025 6:07 AM Question Answer Comments Code Status Confirmed With: Patient * Full Code (Presumed) Date Activated Date Inactivated Comments 09/14/2018 11:41 AM 09/15/2018 4:14 AM Care Teams Vp Integrity Relationship Specialty Start Date End Date Marcos Rocha NP [address] [facility] [place] [address] PCP - General Nurse Practitioner 03/14/23 Naomy Ornelas MD [address] [facility] [place] [address] Insurance Assigned Provider Internal Medicine 03/16/23 Additional Source Comments The information contained in this document represents components of the legal health record. It is not the complete legal health record.[facility]
--- OUTSIDE RECORDS SUMMARY | 2025-09-05 10:39 | XMS_ITS | Encounter Summary ---
Author Organization [facility] Address [address] [place] [address] Phone Care Team Providers Care Mine Shifter Name Role Phone Silas Weathers MD Primary Care Provider [phone] Marcos Rocha NP Primary Care Provider + Naomy Ornelas MD Unavailable [phone] Encounter Details Date Type Department Care Team (Late Contact Info) Description 09/14/2018 Procedure Pass OR Admitting Dept - Virtual Department [address] [place] [address] Social History Tobacco Use Types Packs/Day Years [...] 09/10/2025 11:00 AM EST Office Visit [facility] [address] [place] [address] Juan Bojorquez PA-C [address] [place] [address] Orthopedics & Sports Medicine, [facility]. [place], [place] [phone] Klaus King, PT [address] [place], [place] [phone] 09/18/2025 9:00 AM EST Office Visit [address] [phone] Juan Bojorquez PA-C [address] [place] [address], [place], [place] [phone] Andreina Naranjo, HOME SALES CONSULTANT [address] [place] [address] 09/24/2025 12:45 PM EST Office Visit [address] [phone] Juan Bojorquez PA-C [address] [place] [address], [place], [place] [phone] Marcella Andreina, HOME SALES CONSULTANT [address] [place] [address] 10/01/2025 11:45 AM EST Office Visit [address] [phone] Juan Bojorquez PA-C [address] [place] [address], [place], [place] [phone] Klaus King, PT [address] [place], [place] [phone] documented as of this encounter Visit Diagnoses Not on filedocumented in this encounter Care Teams Mine Shifter Relationship Specialty Start Date End Date Silas Weathers MD [address] [place] [address] [place] [address] PCP - General Internal Medicine 06/27/18 03/13/23 Marcos Rocha NP [address] [place] [address] PCP - General Nurse Practitioner 03/14/23 Naomy Ornelas MD [address] [place] [address] Insurance Assigned Provider Internal Medicine 03/16/23 documented as of this encounter Additional Source Comments The information contained in this document represents components of the legal health record. It is not the complete legal health record.[facility]
--- OUTSIDE RECORDS SUMMARY | 2025-09-05 10:40 | XMS_ITS | Encounter Summary ---
Author Organization [facility] Address [address] [place] [address] Phone Care Team Providers Care Contact Center Analyst Name Role Phone Marcos Rocha NP Primary Care Provider + Naomy Ornelas MD Unavailable [phone] Encounter Details Date Type Department Care Team (Latest Contact Info) Description 07/09/2024 Ancillary Orders [facility] Orthopedics & Sports Medicine [address] [place] [address] Sharath Zepeda PA-C [address] [place] [address] Orthopedics & Sports Medicine, [facility] [place] [address] [email or web address] Bilateral hip pain (Primary Dx); Bilateral [...] Description 09/10/2025 11:00 AM EST Office Visit [address] [address] Juan Bojorquez PA-C [address] [facility], [place] [address] [email or web address] Klaus King, PT 4 [place] [address] [email or web address] 09/18/2025 9:00 AM EST Office Visit [address] [address] Juan Bojorquez PA-C [address] [place] [address], [place] [address] [email or web address] Andreina Naranjo PTA [address] [place] [address] [email or web address] 09/24/2025 12:45 PM EST Office Visit [address] [address] Juan Bojorquez PA-C [address] [place] [address], [place] [address] [email or web address] Andreina Naranjo PTA [address] [place] [address] [email or web address] 10/01/2025 11:45 AM EST Office Visit [address] [phone] Juan Bojorquez PA-C [address] [place] [address], [place] [address] Klaus King, PT 4 [place] [address] [email or web address] documented as of this encounter Results * [...] leg documented in this encounter Care Teams Contact Center Analyst Relationship Specialty Start Date End Date Marcos Rocha NP [address] [place] [address] PCP - General Nurse Practitioner 03/14/23 Naomy Ornelas MD [facility] [place] [address] Insurance Assigned Provider Internal Medicine 03/16/23 documented as of this encounter Additional Source Comments The information contained in this document represents components of the legal health record. It is not the complete legal health record.[facility]
--- OUTSIDE RECORDS SUMMARY | 2025-09-05 10:40 | XMS_ITS | Encounter Summary ---
Author Organization [facility] Address [address] [place] [address] Phone Care Team Providers Care Head Men'S Golf Coach Name Role Phone Marcos Rocha WAITSTAFF Primary Care Provider + Naomy Ornelas MD Unavailable [phone] Encounter Details Date Type Department Care Team (Late st Contact Info) Description 04/24/2025 Procedure Pass OR Admitting Dept - Virtual Department 30 [place] [address] Social History Tobacco Use Types Packs/Day Years [...] 1:00 PM EDT Maira Melendez, ROCÍO * [place] Suicide Severity Rating Scale (Screener/Recent Self-Report) Question [...] Description 09/10/2025 11:00 AM EST Office Visit [address] [address] Juan Bojorquez PA-C [address] [place] [address], [place] [address] [email or web address] Klaus King, PT [address] [place] [address] [email or web address] 09/18/2025 9:00 AM EST Office Visit [address] [address] Juan Bojorquez PA-C [address] [place] [address], [place] [address] [email or web address] Andreina Naranjo, MACHINE SETTER AND REPAIRER [address] [place] [address] [email or web address] 09/24/2025 12:45 PM EST Office Visit [address] [address] Juan Bojorquez PA-C [address] [place] [address], [place] [address] [email or web address] Andreina Naranjo, MACHINE SETTER AND REPAIRER [address] [place] [address] [email or web address] 10/01/2025 11:45 AM EST Office Visit [address] [phone] Juan Bojorquez PA-C [address] [place] [address], [place] [address] Klaus King, PT [address] [place] [address] [email or web address] documented as of this encounter Visit Diagnoses Not on filedocumented in this encounter Care Teams Head Men'S Golf Coach Relationship Specialty Start Date End Date Marcos Rocha NP [facility] [place] [address] PCP - General Nurse Practitioner 03/14/23 Naomy Ornelas MD [address] [place] [address] Insurance Assigned Provider Internal Medicine 03/16/23 documented as of this encounter Additional Source Comments The information contained in this document represents components of the legal health record. It is not the complete legal health record.[facility]
--- OUTSIDE RECORDS SUMMARY | 2025-09-05 10:40 | XMS_ITS | Patient Health Record ---
Author Organization [facility] [place] Address [address] [place] [address] Care Team Providers Care Farm Planner Name Role Phone Marcos Samuels Primary Care Provider Susanne [place] Unavailable [phone] Allergies Allergen (clinical drug ingredient) Drug/Non Drug [...] Status Risk Notes Problem Acquired hallux valgus (30408453) Hallux valgus (acquired), left foot (M20.12) Active confirmed Problem Localized, primary osteoarthritis of the ankle and/or foot (465023504) Primary osteoarthrit is, right ankle and foot (M19.071) Active confirmed Problem Localized, primary osteoarthritis of the ankle and/or foot (385590127) Primary osteoarthrit is, left ankle and foot (M19.072) Active confirmed Problem Acquired hammer toe of right foot (3432470790676643) Other hammer toe(s) (acquired), right foot (M20.41) Active confirmed Problem Acquired hammer toe of left foot (3748774339974323) Other hammer toe(s) (acquired), left foot (M20.42) [...] Ordered Date Performed Result Body Sit e 76732-PHHPLGZ SKIN/TISSUE 09/20/2024 N/A Encounters Encounter Location Date Provider Diagnosis [address] [address] 09/20/2024 Susanne Garrison Skin ulcer of toe of right foot with fat layer exposed L97.[address] [address] 10/25/2024 Susanne Garrison Ingrown toenail L60.[address] [address] 09/21/2024 Susanne Garrison [address] [address] 03/11/2025 Susanne Garrison Xerosis of skin L85.[address] [address] 04/17/2025 Susanne Garrison [address] [address] 08/12/2025 Susanne Garrison Xerosis of skin L85.[address] [address] 08/12/2025 Susanne Garrison Assessments Encounter Date Diagnosis (ICD Code) Assessment Notes Treatment Notes Treatment Clinical Notes Section Notes 10/25/2024 Ingrown toenail (ICD-10 - L60.0) 03/11/2025 [...] X ray : Foot, right 3V 07/09/2019 35902-Hgfs Destruction, 1-14 12/16/2014 83950-Ibyg Destruction, 1-14 01/16/2015 54698-JKU 07/31/2024 86430-AUO 09/04/2024 50021-QQFFFWS SKIN/TISSUE 09/20/2024 08362-XICFZVC SKIN/TISSUE 08/16/2024 Next Appt Details Provider Name:Susanne Freeman padmini, 09/12/2025 08:30:00 AM, [address] [place] [address], [phone], Insurance Providers Payer Name Payer Address Payer Phone Subscriber Number Group Number Insured Name Patient Relationship to Insured Coverage Start Date Coverage End Date Medicare National [employer] [address] [facility] [place] [address] [id number] Radha Jean Self - patient is the insured [facility] [employer] [address] [place] [address] [id number] Radha Jean Self - patient is the [...] 11/1983 left knee replacement 2012 hip surgery-tendon zuagnk-wrhhjzgwha-qup an tibial band repair colonoscopy 12/2021
== END 2025-09-05 09:47 | disposition home or self-care (01) ==
LOC: HO.HKA 09:24
PROVIDERS: PCP Nurse Practitioner Family; Visit Provider Internal Medicine Hypertension Specialist
DX: R80.9 Proteinuria, unspecified (principal)
CPT/HCPCS: 99214

== ENCOUNTER → 2025-09-05 09:23 | Outpatient (BNVA) | payer MEDICARE, OTHER, SELFPAY | PROVIDERS: PCP Nurse Practitioner Family; Visit Provider Internal Medicine Hypertension Specialist | DX: I10 Essential (primary) hypertension (principal); R80.9 Proteinuria, unspecified | CPT/HCPCS: 99212 ==